=== PATIENT | female | born 1960 | race Caucasian/White ===

== ENCOUNTER 2016-04-18 13:24 | Inpatient (IN) ==
--- NOTE | 2016-04-18 13:31 | Emergency Department Note ---
Disposition Clinical Impression: Hypoxemia, Atypical chest pain Respiratory failure Qualifiers: Chronicity: acute Respiratory failure complication: hypoxia Qualified Code(s): J96.01 - Acute respiratory failure with hypoxia Disposition: Admitted As Inpatient Chest Pain HPI - General Stated Complaint: Chest Pain / MADELYN Time Seen by Provider: 04/18/16 13:26 Source: patient Mode of arrival: ambulatory Limitations: no limitations Vital Signs Reviewed: Yes Nursing Notes Reviewed: Yes - History of Present Illness HPI Narrative: She states she woke up about 10 AM today she was having some some chest discomfort and also shortness of breath. As the day progressed her symptoms became a little worse. She is not known smoker she has no history of COPD and does not take inhalers at home. She also states she is complaining of continued migraine Pt complaint: chest pain Onset (ago): hour(s) (3.5) Severity scale (1-10): 8 Improves with: rest Worsens with: exertion Associated symptoms: Denies: nausea, vomiting - Related Data Home Medications Medication Instructions Recorded Confirmed Paroxetine [Paxil] 60 mg PO HS 04/01/15 04/18/16 Buspirone HCl [Buspar] 10 mg PO BID 09/12/15 04/18/16 Diazepam [Valium] 10 mg PO TID 09/12/15 04/18/16 Gabapentin [Neurontin] 600 mg PO BID 09/12/15 04/18/16 Butalb/Acetaminophen/Caffeine 1 tab PO DAILY PRN 04/18/16 04/18/16 [Ffpewe-Fiwshxaj-Pfsx 50-325-40] Chlorpromazine HCl 300 mg PO HS 04/18/16 04/18/16 Cyclobenzaprine HCl 5 mg PO TID PRN 04/18/16 04/18/16 Trihexyphenidyl [Artane] 2 mg PO TID 04/18/16 04/18/16 Previous Rx's Medication Instructions Recorded PredniSONE 40 mg PO DAILY #10 tablet 10/12/15 Allergies Allergy/AdvReac Type Severity Reaction Status Date / Time metoclopramide [From Reglan] Allergy Mild Itching Verified 04/18/16 19:25 tramadol Allergy Mild Itching Verified 04/18/16 19:25 amitriptyline Allergy Itching Verified 04/18/16 19:25 Sulfa (Sulfonamide Allergy See Verified 04/18/16 19:25 Antibiotics) Comments sulfamethoxazole Allergy See Verified 04/18/16 19:25 [From Bactrim] Comments trimethoprim [From Bactrim] Allergy See Verified 04/18/16 19:25 Comments lorazepam [From Ativan] AdvReac Mild Anxiety Verified 04/18/16 19:25 benztropine [From Cogentin] AdvReac See Verified 04/18/16 19:25 Comments ciprofloxacin [From Cipro] AdvReac See Verified 04/18/16 19:25 Comments onabotulinumtoxinA AdvReac See Verified 04/18/16 19:25 [From Botox] Comments sumatriptan [From Imitrex] AdvReac Agitated Verified 04/18/16 19:25 topiramate [From Topamax] AdvReac See Verified 04/18/16 19:25 Comments All systems ED: reviewed and negative except as stated. 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, other - Social History Smoking Status: Current every day smoker Alcohol use: Reports: none Drug use: Reports: none Physical Exam - General Limitations: no limitations General appearance: alert, in no apparent distress - Head Head exam: atraumatic, normocephalic, normal inspection - Eye Eye exam: Present: normal appearance, PERRL, EOMI - Expanded Eye Exam Pupils: Left: reactive - ENT ENT exam: normal exam, normal oropharynx, mucous membranes moist - Expanded ENT Exam External ear exam: Present: normal external inspection Mouth exam: Present: normal external inspection Teeth exam: Present: normal inspection Throat exam: Present: normal inspection - Neck Neck exam: Present: normal inspection, full ROM, trachea midline - Chest Chest inspection: Present: normal inspection, symmetric chest wall rise - Respiratory Respiratory exam: Present: other (Mild end expiratory wheezes some minimal scattered crackles) - Cardiovascular Cardiovascular exam: Present: regular rate, normal rhythm, normal heart sounds - Abdominal Exam Abdominal exam: Present: soft, Non-Tender. Absent: tenderness, distention, guarding, rebound, rigidity - Extremities Exam Extremities exam: Present: normal inspection, full ROM. Absent: tenderness, pedal edema - Expanded Upper Extremity Exam Shoulder exam: Present: normal inspection, full ROM Arm exam: Present: normal inspection, full ROM Elbow exam: Present: normal inspection, full ROM Forearm/Wrist exam: Present: normal inspection, full ROM Hand exam: Present: normal inspection, full ROM Vascular exam: Normal: capillary refill, radial pulse - Expanded Lower Extremity Exam Hip/Pelvis exam: Present: normal inspection, full ROM Upper leg exam: Present: normal inspection, full ROM Knee exam: Present: normal inspection, full ROM Lower leg exam: Present: normal inspection, full ROM Ankle exam: Present: normal inspection, full ROM Foot/toe exam: Present: normal inspection, full ROM Neurovascular/Tendon exam: Absent: motor deficit, sensory deficit, tendon deficit - Back Exam Back exam: Present: normal inspection, full ROM. Absent: tenderness - Neurological Exam Neurological exam: Present: alert, oriented X3 - Expanded Neurological Exam Patient oriented to: Present: person, place, time Coma Scale Eye Opening: Spontaneous Coma Scale Motor Response: Obeys Commands Coma Scale Verbal Response: Oriented Coma Scale Total: 15 - Psychiatric Psychiatric exam: Present: normal affect, normal mood - Skin Skin exam: Present: warm, dry, intact, normal color Course Vital Signs Temperature 98.1 F 04/18/16 13:27 Pulse Rate 101 04/18/16 13:27 Respiratory Rate 16 04/18/16 13:27 Blood Pressure 125/60 04/18/16 13:27 O2 Sat by Pulse Oximetry 99 04/18/16 13:27 Temperature 98.1 F 04/18/16 13:27 Pulse Rate 106 04/18/16 18:55 Respiratory Rate 16 04/18/16 19:28 Blood Pressure 122/31 04/18/16 19:28 O2 Sat by Pulse Oximetry 96 04/18/16 18:55 Oxygen Delivery Oxygen Delivery Simple Mask Chest Pain - [facility] Narrative Medical decision making narrative: dr. liu to admit still uncertain of the etiology of her hypoxemia. - Differential Diagnosis Likely: pneumothorax, stable angina, unstable angina pectoris, atypical chest pain, st elevation myocardial infraction, costalchondritis, chest pain, biliary colic - Medical Records Medical records reviewed: Yes I reviewed the patient's medical records. - Lab Data Lab results reviewed: Yes I reviewed the patient's lab results. Result diagrams: 04/18/16 13:57 04/18/16 13:57 Lab Results 04/18/16 04/18/16 04/18/16 Range/Units 13:57 13:57 13:57 WBC 19.3 H (4.3-11.1) K/mcL RBC 3.85 (3.82-4.97) M/mcL Hgb 12.3 (11.5-15.4) g/dL Hct 36.6 (35.3-44.9) % MCV 95.1 (83.0-100.0) fL MCH 31.9 (28.0-33.3) pg MCHC 33.6 (31.6-35.5) g/dL RDW 13.5 (11.5-14.5) % Plt Count 239 (140-400) K/mcL MPV 9.6 (9.4-12.4) fL Immature Gran % 1.1 (0-4) % Seg Neutrophils % 91.4 % Lymphocytes % 4.2 % Monocytes % 2.8 % Eosinophils % 0.3 % Basophils % 0.2 % Neutrophils # 17.7 H (1.6-8.9) K/mcL Lymphocytes # 0.8 (0.6-4.6) K/mcL Monocytes # 0.6 (0.0-1.3) K/mcL Eosinophils # 0.1 (0.0-0.6) K/mcL Basophils # 0.0 (0.0-0.2) K/mcL PT 13.4 H (9.4-12.1) Seconds INR 1.2 APTT 56.1 H (26.0-36.0) Seconds D-Dimer 1376 H (0-500) ng/mLFEU ABG pH (7.32-7.45) pH Units ABG pCO2 (35-45) mmHg ABG pO2 (85-104) mmHg ABG HCO3 (21-27) mEQ/L ABG Total CO2 (20-26) mEq/L ABG O2 Saturation (95-98) % ABG Base Excess (-2.0 to 3.0) mEq/L Inspired O2 % Sodium 133 L (136-145) mEq/L Potassium 4.2 (3.5-4.5) mEq/L Chloride 101 (98-109) mEq/L Carbon Dioxide 21 (19-29) mEq/L BUN 19 (7-20) mg/dL Creatinine 1.03 (0.57-1.11) mg/dL Est GFR ( Amer) > 60 (> 60) Est GFR (Non-Af Amer) 55 L (> 60) BUN/Creatinine Ratio 18 (6-26) Glucose 114 H (70-99) mg/dL Calculated Osmolality 279 L (280-300) Calcium 9.5 (8.6-10.8) mg/dL Troponin I (0-0.03) ng/mL Urine Color (Yellow) Urine Clarity (Clear) Urine pH (5.0-8.0) pH Units Ur Specific Oral (1.010-1.025) Urine Protein (Neg-Trace) mg/dL Urine Glucose (UA) (Normal) mg/dL Urine Ketones (Negative) mg/dL Urine Blood (Negative) Urine Nitrite (Negative) Urine Bilirubin (Negative) Urine Urobilinogen (Normal) mg/dL Ur Leukocyte Esterase (Negative) Urine Microscopic RBC (0-3) per hpf Urine Microscopic WBC (0-3) per hpf Ur Squamous Epith Cells (None-Few) per lpf Ur Renal Epithelial Cell (None-Few) per hpf Urine Bacteria (None-Few) per hpf Hyaline Casts Ur Culture Indicated? (NO) Urine Opiates Screen (Rnuohp=058) ng/mL Ur Barbiturates Screen (Nptpvg=998) ng/mL Ur Phencyclidine Scrn (Cutoff=25) ng/mL Ur Amphetamines Screen (Uaqdrx=8571) ng/mL U Benzodiazepines Scrn (Vygqsa=672) ng/mL Urine Cocaine Screen (Cutoff= 300) ng/mL U Marijuana (THC) Screen (Cutoff = 50) ng/mL 04/18/16 04/18/16 04/18/16 Range/Units 13:57 15:40 15:40 WBC (4.3-11.1) K/mcL RBC (3.82-4.97) M/mcL Hgb (11.5-15.4) g/dL Hct (35.3-44.9) % MCV (83.0-100.0) fL MCH (28.0-33.3) pg MCHC (31.6-35.5) g/dL RDW (11.5-14.5) % Plt Count (140-400) K/mcL MPV (9.4-12.4) fL Immature Gran % (0-4) % Seg Neutrophils % % Lymphocytes % % Monocytes % % Eosinophils % % Basophils % % Neutrophils # (1.6-8.9) K/mcL Lymphocytes # (0.6-4.6) K/mcL Monocytes # (0.0-1.3) K/mcL Eosinophils # (0.0-0.6) K/mcL Basophils # (0.0-0.2) K/mcL PT (9.4-12.1) Seconds INR APTT (26.0-36.0) Seconds D-Dimer (0-500) ng/mLFEU ABG pH (7.32-7.45) pH Units ABG pCO2 (35-45) mmHg ABG pO2 (85-104) mmHg ABG HCO3 (21-27) mEQ/L ABG Total CO2 (20-26) mEq/L ABG O2 Saturation (95-98) % ABG Base Excess (-2.0 to 3.0) mEq/L Inspired O2 % Sodium (136-145) mEq/L Potassium (3.5-4.5) mEq/L Chloride (98-109) mEq/L Carbon Dioxide (19-29) mEq/L BUN (7-20) mg/dL Creatinine (0.57-1.11) mg/dL Est GFR ( Amer) (> 60) Est GFR (Non-Af Amer) (> 60) BUN/Creatinine Ratio (6-26) Glucose (70-99) mg/dL Calculated Osmolality (280-300) Calcium (8.6-10.8) mg/dL Troponin I 0.01 (0-0.03) ng/mL Urine Color Yellow (Yellow) Urine Clarity Clear (Clear) Urine pH 6.0 (5.0-8.0) pH Units Ur Specific Oral > 1.030 H (1.010-1.025) Urine Protein Trace (Neg-Trace) mg/dL Urine Glucose (UA) Normal (Normal) mg/dL Urine Ketones Negative (Negative) mg/dL Urine Blood Trace H (Negative) Urine Nitrite Negative (Negative) Urine Bilirubin Negative (Negative) Urine Urobilinogen Normal (Normal) mg/dL Ur Leukocyte Esterase Negative (Negative) Urine Microscopic RBC 0-3 (0-3) per hpf Urine Microscopic WBC 0-3 (0-3) per hpf Ur Squamous Epith Cells Few (None-Few) per lpf Ur Renal Epithelial Cell Few (None-Few) per hpf Urine Bacteria Few (None-Few) per hpf Hyaline Casts Test Not Performed Ur Culture Indicated? NO (NO) Urine Opiates Screen Negative (Crurwk=377) ng/mL Ur Barbiturates Screen Positive H (Zgqklf=169) ng/mL Ur Phencyclidine Scrn Negative (Cutoff=25) ng/mL Ur Amphetamines Screen Negative (Jiafnr=0115) ng/mL U Benzodiazepines Scrn Positive H (Oldjjh=030) ng/mL Urine Cocaine Screen Negative (Cutoff= 300) ng/mL U Marijuana (THC) Screen Negative (Cutoff = 50) ng/mL 04/18/16 Range/Units 17:20 WBC (4.3-11.1) K/mcL RBC (3.82-4.97) M/mcL Hgb (11.5-15.4) g/dL Hct (35.3-44.9) % MCV (83.0-100.0) fL MCH (28.0-33.3) pg MCHC (31.6-35.5) g/dL RDW (11.5-14.5) % Plt Count (140-400) K/mcL MPV (9.4-12.4) fL Immature Gran % (0-4) % Seg Neutrophils % % Lymphocytes % % Monocytes % % Eosinophils % % Basophils % % Neutrophils # (1.6-8.9) K/mcL Lymphocytes # (0.6-4.6) K/mcL Monocytes # (0.0-1.3) K/mcL Eosinophils # (0.0-0.6) K/mcL Basophils # (0.0-0.2) K/mcL PT (9.4-12.1) Seconds INR APTT (26.0-36.0) Seconds D-Dimer (0-500) ng/mLFEU ABG pH 7.37 (7.32-7.45) pH Units ABG pCO2 40 (35-45) mmHg ABG pO2 77 L (85-104) mmHg ABG HCO3 23.1 (21-27) mEQ/L ABG Total CO2 24.3 (20-26) mEq/L ABG O2 Saturation 95 (95-98) % ABG Base Excess -2.0 (-2.0 to 3.0) mEq/L Inspired O2 44 % Sodium (136-145) mEq/L Potassium (3.5-4.5) mEq/L Chloride (98-109) mEq/L Carbon Dioxide (19-29) mEq/L BUN (7-20) mg/dL Creatinine (0.57-1.11) mg/dL Est GFR ( Amer) (> 60) Est GFR (Non-Af Amer) (> 60) BUN/Creatinine Ratio (6-26) Glucose (70-99) mg/dL Calculated Osmolality (280-300) Calcium (8.6-10.8) mg/dL Troponin I (0-0.03) ng/mL Urine Color (Yellow) Urine Clarity (Clear) Urine pH (5.0-8.0) pH Units Ur Specific Oral (1.010-1.025) Urine Protein (Neg-Trace) mg/dL Urine Glucose (UA) (Normal) mg/dL Urine Ketones (Negative) mg/dL Urine Blood (Negative) Urine Nitrite (Negative) Urine Bilirubin (Negative) Urine Urobilinogen (Normal) mg/dL Ur Leukocyte Esterase (Negative) Urine Microscopic RBC (0-3) per hpf Urine Microscopic WBC (0-3) per hpf Ur Squamous Epith Cells (None-Few) per lpf Ur Renal Epithelial Cell (None-Few) per hpf Urine Bacteria (None-Few) per hpf Hyaline Casts Ur Culture Indicated? (NO) Urine Opiates Screen (Crepel=341) ng/mL Ur Barbiturates Screen (Efjjff=408) ng/mL Ur Phencyclidine Scrn (Cutoff=25) ng/mL Ur Amphetamines Screen (Ktvkru=7524) ng/mL U Benzodiazepines Scrn (Znxtin=230) ng/mL Urine Cocaine Screen (Cutoff= 300) ng/mL U Marijuana (THC) Screen (Cutoff = 50) ng/mL - Radiology Data Radiology results reviewed: Yes I reviewed the patient's radiology results. Critical Care Time Critical Care Time: Yes Total Critical Care Time: 40 Attestation: Critical care performed: Time is exclusive of separately billable procedures. Time includes: direct patient care, patient reassessment, coordination of patient care, interpretation of data (laboratory data, radiology data, and respiratory data), review of patient's medical records, medical consultation and documentation of patient care. Procedures included in critical care time: Procedures excluded from critical care time:
[2016-04-18 14:06] LABS: Basophils % 0.2 %; Eosinophils # 0.1 K/mcL (0.0-0.6); Eosinophils % 0.3 %; Hematocrit 36.6 % (35.3-44.9); Hemoglobin 12.3 g/dL (11.5-15.4); Immature Granulocytes % 1.1 % (0-4); Lymphocytes # 0.8 K/mcL (0.6-4.6); Lymphocytes % 4.2 %; Mean Corpuscular HGB Conc 33.6 g/dL (31.6-35.5); Mean Corpuscular Hemoglobin 31.9 pg (28.0-33.3); Mean Corpuscular Volume 95.1 fL (83.0-100.0); Mean Platelet Volume 9.6 fL (9.4-12.4); Monocytes # 0.6 K/mcL (0.0-1.3); Monocytes % 2.8 %; Neutrophils # 17.7 K/mcL (1.6-8.9); Platelet Count 239 K/mcL (140-400); Red Blood Count 3.85 M/mcL (3.82-4.97); Red Cell Distribution Width 13.5 % (11.5-14.5); Segmented Neutrophils % 91.4 %
[2016-04-18 14:18] LABS: BUN/Creatinine Ratio 18 (6-26); Blood Urea Nitrogen 19 mg/dL (7-20); Calcium 9.5 mg/dL (8.6-10.8); Carbon Dioxide 21 mEq/L (19-29); Chloride 101 mEq/L (98-109); Glucose 114 mg/dL (70-99); Osmolality,Calculated 279 (280-300); Potassium 4.2 mEq/L (3.5-4.5); Sodium 133 mEq/L (136-145); eGFR For African Americans > 60 (> 60); eGFR For Non-African Americans 55 (> 60)
[2016-04-18 14:29] LABS: INR 1.2; Prothrombin Time 13.4 Seconds (9.4-12.1)
[2016-04-18 14:32] LABS: Activated Partial Thrombo Time 56.1 Seconds (26.0-36.0)
[2016-04-18] MEDS ORDERED: Ipratropium/Albuterol Neb 3 ML IH ONE (15:52)
[2016-04-18 16:10] LABS: Bilirubin,Urine Negative (Negative); Blood,Urine Trace (Negative); Clarity,Urine Clear (Clear); Color,Urine Yellow (Yellow); Glucose,Urine (UA) Normal (Normal); Ketones,Urine Negative (Negative); Leukocyte Esterase,Urine Negative (Negative); Nitrite,Urine Negative (Negative); Protein,Urine Trace mg/dL (Neg-Trace); Specific Gravity,Urine > 1.030 (1.010-1.025); Urobilinogen,Urine Normal (Normal)
[2016-04-18 16:22] LABS: Amphetamine Screen,Urine Negative ng/mL (Cutoff=1000); Benzodiazepines Screen,Urine Positive ng/mL (Cutoff=200); Cannabinoid Screen,Urine Negative ng/mL (Cutoff = 50); Cocaine Screen,Urine Negative ng/mL (Cutoff= 300); Opiate Screen,Urine Negative ng/mL (Cutoff=300); Phencyclidine Screen,Urine Negative ng/mL (Cutoff=25)
[2016-04-18 16:29] LABS: Bacteria,Urine Few per hpf (None-Few); RBC,Urine 0-3 per hpf (0-3); Squamous Epithelial Cell,Urine Few per lpf (None-Few); WBC,Urine 0-3 per hpf (0-3)
[2016-04-18 16:32] LABS: Renal Epithelial Cells,Urine Few per hpf (None-Few)
[2016-04-18 16:37] LABS: Barbiturate Screen,Urine Positive ng/mL (Cutoff=200)
[2016-04-18 17:41] LABS: ABG HCO3 23.1 mEQ/L (21-27); ABG Oxygen Saturation 95 % (95-98); ABG PCO2 40 mmHg (35-45); ABG PH 7.37 pH Units (7.32-7.45); ABG PO2 77 mmHg (85-104); ABG TCO2 24.3 mEq/L (20-26)
[2016-04-18 17:43] LABS: Blood Gas FiO2 44 %
[2016-04-18] MEDS ORDERED: Aspirin 81 MG TAB.CHEW PO ONE (18:33)
[2016-04-18] MEDS ORDERED: *HR* Promethazine 25 MG/ML VIAL IVP ONE (18:51)
[2016-04-18] MEDS ORDERED: Levofloxacin 750 MG/150 ML 750 MG/150 ML BAG IVPB ONE (19:29)
[2016-04-18] MEDS ORDERED: *HR* Enoxaparin 40 MG/0.4 ML SYRINGE SQ ONE (20:13)
[2016-04-18] MEDS ORDERED: Benzonatate 100 MG CAPSULE PO PRN (20:13)
[2016-04-18] MEDS ORDERED: Naloxone 0.4 MG/ML INJ IVP PRN (20:13)
[2016-04-18] MEDS ORDERED: *HR* Promethazine 25 MG/ML VIAL IVP PRN (20:13)
[2016-04-18] MEDS ORDERED: Acetaminophen 325 MG TABLET PO PRN (20:13)
[2016-04-18] MEDS ORDERED: Mag Hydrox/Al Hydrox/Simeth 30 ML UDC PO PRN (20:13)
[2016-04-18] MEDS ORDERED: Albuterol 2.5 MG/3 ML NEBULIZER IH PRN (20:13)
[2016-04-18] MEDS ORDERED: *HR* OxyCODONE Immed Rel 5 MG TABLET PO PRN (20:13)
[2016-04-18] MEDS ORDERED: *HR* OxyCODONE/APAP 5/325 TABLET PO ONE (20:19)
[2016-04-18] MEDS: 0.9 % Sodium Chloride 1,000 ML IVC SCH (21:51)
[2016-04-18] MEDS: Famotidine 20 MG TABLET PO SCH (21:52)
[2016-04-18] MEDS: Nicotine 21 MG PATCH.TD24 TD SCH (21:52)
--- NOTE | 2016-04-18 21:54 | Internal Med History&Physical ---
<Goldy Shah - Last Filed: 04/18/16 23:40> Date of Encounter: 04/18/16 Time of Encounter: 21:00 Assessment and Plan (1) Acute respiratory failure Current visit: No Status: Acute Acute hypoxic respiratory failure. Patient's current O2 saturation stable at 95% on 9 L high flow during examination. ABG showed pO2 at 77. Troponin negative x 1. Possible infectious process on chest CTA. Suggestive of atypical pneumonia. 3 episodes of pneumonia in the past year. Vomiting for past 3 days gives concern for possible aspiration pneumonitis. Patient noted to have allergy to cipro, causing desquamation of hands. Patient received levaquin in the ED. Will discontinue and start rocephin and azithromycin. Qualifiers: Respiratory failure complication: hypoxia Qualified Code(s): J96.01 - Acute respiratory failure with hypoxia (2) Pneumonia Current visit: No Status: Acute Likely atypical community acquired pneumonia. Concern for aspiration with recent vomiting. See above plan. Qualifiers: Pneumonia type: due to unspecified organism Laterality: bilateral Lung location: unspecified part of lung Qualified Code(s): J18.9 - Pneumonia, unspecified organism (3) SIRS (systemic inflammatory response syndrome) Current visit: Yes Status: Acute Likely sepsis secondary to pneumonia in the setting of acute respiratory failure. Tachycardiac (117), tachypneic (26), leukocytosis (19.3), CRP (273), pO2 (77). See above plan. In addition, concern for coagulopathy with chronic elevation of PT/PTT. Ordered hypercoagulation studies. (4) Vomiting Current visit: Yes Status: Acute Likely acute viral process. Increased reflux. Possible gastritis vs acute gastroenteritis. Start PPI Monitor H/H. Continue IVFs Phenergan prn Qualifiers: Vomiting type: unspecified Vomiting Intractability: non-intractable Nausea presence: with nausea Qualified Code(s): R11.2 - Nausea with vomiting, unspecified (5) Bipolar disorder Current visit: No Status: Chronic Continue home medication. Qualifiers: Active/Remission status: currently active Current bipolar episode type: mixed Current episode severity: severe Psychotic features: without psychotic features Qualified Code(s): F31.63 - Bipolar disorder, current episode mixed, severe, without psychotic features (6) Tobacco dependence Current visit: Yes Status: Acute Currently smokes 1/2 ppd. Patient states she plans to quit after the continued respiratory issues this year. Internal Medicine - H&P: HPI Chief complaint: shortness of breath Admitted From: Emergency Dept Plans for Post Hospital Care: Home History of present illness: Ms. Montoya is a 55 year old female presented to the ED with worsening shortness of breath beginning today. Patient also notes vomiting for the past three days and a migraine that began after the vomiting. Patient seen in the ED yesterday for migraine, discharged. Patient states migraine is a pulsating sharp pain behind her left eye radiating into her jaw currently an 8/10. Chest pain improving, was 8/10 on admission, described at a throbbing pressure in the center of her chest, worse with exertion. PMHx of hypotension and bipolar. Admits to cough today with clear sputum production, dizziness, and numbness/ tingling with walking, states she feels like she is "about to pass out". Patient states she has been unable to keep fluids or food down for the past 2 days. Thinking back patient recalls increased heartburn recently, unknown timeline. Patient denies any sick contacts. Denies fevers, diarrhea, constipation, dysuria, hematuria, melena. No history of DVT or PE, denies history of any bleeding disorders. Patient does note 3 diagnoses of pneumonia in the past year 09/12/15, 10/03/15, and 02/17/16. Currently smokes 1/2 ppd. CXR done in the ED showed mild congestion, CTA showed diffuse bilateral ground glass airspace, possible infectious process less likely edema, vs interstitial lung disease. Patient currently on 9 LPM of oxygen supplementation to maintain O2 sat >94%. Past Med Surg Social Fam HX - Past Medical History Medical history: migraine, other (hypotension) Psychiatric history: anxiety, bipolar, depression - Past Surgical History Surgical History: cholecystectomy, herniorrhaphy, hysterectomy - Social History Smoking Status: Current every day smoker Smokeless Tobacco Status: No Alcohol use: none Drug use: none - Family History Father Living Status: Still Living Hx Family Cardiac Disorders: Yes Mother Family Member Ethnicity: Non- Living Status: Still Living Hx Family Cardiac Disorders: No Hx Family Respiratory Disorders: Yes (short of breath) Hx Family Cancer: No Hx Family GI Disorders: No Hx Family Endocrine Disorder: No Hx Family Neuromuscular Disorders: No Hx Family Neurologic Disorders: No Hx Family HEENT Disorders: No Hx Family Autoimmune Disorders: Yes (hyperthyroid) Grandfather Living Status: Hx Family Cardiac Disorders: Yes Internal Medicine - H&P: Meds Paroxetine [Paxil] 60 mg PO HS 04/01/15 [History] Buspirone HCl [Buspar] 10 mg PO BID 09/12/15 [History] Diazepam [Valium] 10 mg PO TID 09/12/15 [History] Gabapentin [Neurontin] 600 mg PO BID 09/12/15 [History] PredniSONE 40 mg PO DAILY #10 tablet 10/12/15 [Rx] Butalb/Acetaminophen/Caffeine [Chwkse-Uitkejqj-Meyg 50-325-40] 1 tab PO DAILY PRN 04/18/16 [History] Chlorpromazine HCl 300 mg PO HS 04/18/16 [History] Cyclobenzaprine HCl 5 mg PO TID PRN 04/18/16 [History] Trihexyphenidyl [Artane] 2 mg PO TID 04/18/16 [History] Allergies metoclopramide [From Reglan] Allergy (Mild, Verified 04/18/16 19:25) Itching tramadol Allergy (Mild, Verified 04/18/16 19:25) Itching amitriptyline Allergy (Verified 04/18/16 19:25) Itching Sulfa (Sulfonamide Antibiotics) Allergy (Verified 04/18/16 19:25) See Comments sulfamethoxazole [From Bactrim] Allergy (Verified 04/18/16 19:25) See Comments trimethoprim [From Bactrim] Allergy (Verified 04/18/16 19:25) See Comments blisters on hands and feet lorazepam [From Ativan] Adverse Reaction (Mild, Verified 04/18/16 19:25) Anxiety benztropine [From Cogentin] Adverse Reaction (Verified 04/18/16 19:25) See Comments patient states it causes sores on tongue ciprofloxacin [From Cipro] Adverse Reaction (Verified 04/18/16 19:25) See Comments BLISTERS TO HANDS AND FEET onabotulinumtoxinA [From Botox] Adverse Reaction (Verified 04/18/16 19:25) See Comments patient states it causes neck pain sumatriptan [From Imitrex] Adverse Reaction (Verified 04/18/16 19:25) Agitated topiramate [From Topamax] Adverse Reaction (Verified 04/18/16 19:25) See Comments patient states it makes her hyper All Systems PM: A 10-system review of systems was performed and is negative for pertinent findings except as documented above in the HPI. - Constitutional Constitutional: as per HPI, excessive sweating - EENT Nose, mouth and throat: no dysphagia, no neck pain, no throat swelling - Cardiovascular Cardiovascular ROS IM: as per HPI, chest pain, diaphoresis, dyspnea, dyspnea on exertion, lightheadedness, no edema - Respiratory Respiratory: as per HPI, cough, dyspnea on exertion, no excessive phlegm production, no change in phlegm color - Gastrointestinal Gastrointestinal: as per HPI, abdominal pain, heartburn, nausea, vomiting, no constipation, no diarrhea, no dysphagia, no hematemesis, no melena - Genitourinary Genitourinary: no dysuria - Musculoskeletal Musculoskeletal ROS IM: numbness, tingling - Integumentary Integumentary IM: no rash - Neurological Neurological ROS: dizziness, headache(s), numbness, tingling - Hematologic/Lymphatic Hematologic/Lymphatic: no easy bleeding, no easy bruising - Constitutional Vitals: Temp Pulse Resp BP Pulse Ox 98.1 F 101 20 110/48 93 L 04/18/16 20:54 04/18/16 20:54 04/18/16 20:54 04/18/16 20:54 04/18/16 20:54 General appearance: Present: cooperative, mild distress, A&O X 3, pleasant, obese, answers questions appropriately - Head Head exam: Present: atraumatic, normocephalic - Eye Eye exam: Present: EOMI, PERRL, conjuntiva pink, sclera anicteric Pupils: Present: PERRL - Neck Neck exam general surgery: Present: full ROM, supple, trachea midline - Respiratory Respiratory exam: Present: accessory muscle use, wheezes (high pitch wheeze vs stridor, heard through on inspiration. Worse on L>R.). Absent: rales, rhonchi - Cardiovascular Cardiovascular exam: Present: RRR, +S1, +S2. Absent: diastolic murmur, gallop, rubs, systolic murmur - GI/Abdominal GI/Abdominal exam: Present: normal bowel sounds, soft, no peritoneal signs. Absent: distended, tenderness - Extremities Exam Extremities exam: Present: warm, radial pulses palpable and symetrical (1+ b/l) . Absent: calf tenderness, cyanotic, pedal edema - Neurological Exam Neurological exam: Present: alert, oriented X3, no focal deficits. Absent: facial droop, speech deficit - Skin Skin exam: Present: dry, intact Internal Med - H&P Results - Labs CBC & Chem 7: 04/18/16 13:57 04/18/16 13:57 <Thierry Solomon - Last Filed: 04/19/16 02:28> Date of Encounter: 04/18/16 Assessment and Plan (1) Acute chest wall pain Current visit: Yes Status: Acute . (2) Costochondritis, acute Current visit: Yes Status: Acute . (3) Acute and chronic respiratory failure with hypoxia Current visit: Yes Status: Acute . (4) Atypical pneumonia Current visit: Yes Status: Acute . (5) Interstitial pulmonary disease, unspecified Current visit: Yes Status: Chronic . (6) Coagulopathy Current visit: Yes Status: Acute . (7) Opiate dependence Current visit: Yes Status: Chronic . Qualifiers: Substance use status: with unspecified opioid-induced disorder Qualified Code(s): F11.29 - Opioid dependence with unspecified opioid-induced disorder (8) Multiple drug allergies Current visit: Yes Status: Chronic . (9) Chronic pain associated with significant psychosocial dysfunction Current visit: Yes Status: Chronic . (10) Osteoarthritis involving multiple joints on both sides of body Current visit: Yes Status: Chronic . (11) Osteopenia Current visit: Yes Status: Chronic . (12) Chronic mixed headache syndrome Current visit: Yes Status: Chronic . (13) Chronic pancreatitis Current visit: Yes Status: Chronic . Qualifiers: Pancreatitis type: unspecified pancreatitis type Qualified Code(s): K86.1 - Other chronic pancreatitis (14) Obesity (BMI 30-39.9) Current visit: Yes Status: Chronic . (15) Chest pain, rule out acute myocardial infarction Current visit: Yes Status: Acute . (16) Chest pain with low risk of acute coronary syndrome Current visit: Yes Status: Acute . (17) Hyponatremia with decreased serum osmolality Current visit: Yes Status: Acute . (18) Neutrophilic leukocytosis Current visit: Yes Status: Acute . (19) Dehydration, mild Current visit: Yes Status: Acute . (20) On psychotropic medication Current visit: Yes Status: Chronic . (21) Gastroenteritis, acute Current visit: Yes Status: Acute . (22) Atypical chest pain Current visit: Yes Status: Acute . (23) SIRS (systemic inflammatory response syndrome) Current visit: Yes Status: Acute (24) Acute exacerbation of chronic obstructive airways disease Current visit: Yes Status: Acute . (25) Debility, unspecified Current visit: Yes Status: Chronic . (26) At risk for polypharmacy Current visit: Yes Status: Chronic . (27) Bipolar disorder Current visit: Yes Status: Chronic Qualifiers: Active/Remission status: currently active Current bipolar episode type: mixed Current episode severity: severe Psychotic features: without psychotic features Qualified Code(s): F31.63 - Bipolar disorder, current episode mixed, severe, without psychotic features (28) Depression Current visit: Yes Status: Chronic . Qualifiers: Depression Type: unspecified Qualified Code(s): F32.9 - Major depressive disorder, single episode, unspecified (29) Falls Current visit: Yes Status: Chronic . Qualifiers: Encounter type: sequela Qualified Code(s): W19.XXXS - Unspecified fall, sequela (30) Tobacco use disorder Current visit: Yes Status: Chronic . (31) Chronic fatigue and malaise Current visit: Yes Status: Chronic . Internal Medicine - H&P: HPI History of present illness: Ms. Montoya is a 55 year old female The patient was visited and interviewed and examined. I examined this patient and my medical decision-making was reviewed with the Resident Physician. I agree with the documented findings, disposition and treatment plan as described except to the extent set forth below. Cumulative laboratory and radiographic data base were reviewed and considered and discussed. Pertinent ancillary medical records including ECW and PCI documentation, when available, was reviewed and considered. Given the patient's presenting concerns, past medical history, clinical findings and symptoms, she is admitted at this time to undergo further evaluation and disposition. Orders were written as per the computerized physician order detailer system.......................................................................... ................. All Systems PM: A 10-system review of systems was performed and is negative for pertinent findings except as documented above in the HPI. - Constitutional Vitals: Temp Pulse Resp BP Pulse Ox 97.5 F L 65 20 80/54 93 L 04/18/16 23:59 04/18/16 23:59 04/18/16 23:59 04/18/16 23:59 04/18/16 23:59 Internal Med - H&P Results - Labs CBC & Chem 7: 04/18/16 13:57 04/18/16 13:57 Labs: Cardiac Enzymes 04/18/16 Range/Units 21:47 Troponin I 0.01 (0-0.03) ng/mL - Impressions Vital Signs Temp Pulse Resp BP Pulse Ox 04/18/16 23:59 97.5 F L 65 20 80/54 93 L 04/18/16 22:30 96 04/18/16 22:16 22 76 L 04/18/16 20:54 98.1 F 101 20 110/48 93 L 04/18/16 20:23 106 20 101/84 94 L 04/18/16 19:28 16 122/31 04/18/16 18:55 106 16 122/31 96 04/18/16 18:06 107 16 138/50 95 04/18/16 17:16 111 16 107/26 93 L 04/18/16 16:10 20 89 L 04/18/16 15:00 113 24 128/74 93 L 04/18/16 13:42 95 04/18/16 13:36 117 26 129/70 77 L 04/18/16 13:31 77 L 04/18/16 13:27 98.1 F 101 16 125/60 99 Intake and Output 04/18/16 04/18/16 04/19/16 15:59 23:59 07:59 Intake Total 620 / 620 110 / 110 Output Total 150 / 150 Balance 470 / 470 110 / 110 Intake: IV Fluids 250 / 250 110 / 110 Calcium Gluconate 1,000 110 / 110 MG In Dextrose 5% 100 ML @ 220 mls/hr IVPB ONCE ONE Rx#:[id number] Rocephin 1,000 MG In 100 / 100 Dextrose 5% (Minibag+) 100 ML 100 ML @ 200 mls/ hr IVPB BID [place] Rx#: [id number] Levaquin 750mg/150 mL 750 150 / 150 mg In 150 ml @ 100 mls/ hr IVPB ONCE ONE Rx#: [id number] Oral 370 / 370 Output: Urine 150 / 150 Other: Weight 72.575 kg 165.8 kg Short CBC 04/18/16 Range/Units 13:57 WBC 19.3 H (4.3-11.1) K/mcL Hgb 12.3 (11.5-15.4) g/dL Hct 36.6 (35.3-44.9) % Plt Count 239 (140-400) K/mcL Neutrophils # 17.7 H (1.6-8.9) K/mcL BMP 04/18/16 Range/Units 13:57 Sodium 133 L (136-145) mEq/L Potassium 4.2 (3.5-4.5) mEq/L Chloride 101 (98-109) mEq/L Carbon Dioxide 21 (19-29) mEq/L BUN 19 (7-20) mg/dL Creatinine 1.03 (0.57-1.11) mg/dL Glucose 114 H (70-99) mg/dL Calcium 9.5 (8.6-10.8) mg/dL Cardiac Enzymes 04/18/16 04/18/16 04/18/16 Range/Units 21:47 19:04 13:57 Troponin I 0.01 0.00 0.01 (0-0.03) ng/mL Urine 04/18/16 Range/Units 15:40 Urine Color Yellow (Yellow) Urine Clarity Clear (Clear) Urine pH 6.0 (5.0-8.0) pH Units Ur Specific [place] > 1.030 H (1.010-1.025) Urine Protein Trace (Neg-Trace) mg/dL Urine Glucose (UA) Normal (Normal) mg/dL 04/18/16 17:20 ABG pH 7.37 ABG pCO2 40 ABG pO2 77 L ABG HCO3 23.1 ABG Total CO2 24.3 ABG O2 Saturation 95 ABG Base Excess -2.0 Abnormal lab results WBC 19.3 K/mcL (4.3-11.1) H 04/18/16 13:57 Neutrophils # 17.7 K/mcL (1.6-8.9) H 04/18/16 13:57 ESR 47 mm/hr (0-15) H 04/18/16 21:47 PT 13.4 Seconds (9.4-12.1) H 04/18/16 13:57 APTT 56.1 Seconds (26.0-36.0) H 04/18/16 13:57 D-Dimer 1376 ng/mLFEU (0-500) H 04/18/16 13:57 ABG pO2 77 mmHg (85-104) L 04/18/16 17:20 Sodium 133 mEq/L (136-145) L 04/18/16 13:57 Est GFR (Non-Af Amer) 55 (> 60) L 04/18/16 13:57 Glucose 114 mg/dL (70-99) H 04/18/16 13:57 POC Glucose 139 (58-89) H 04/18/16 21:41 Calculated Osmolality 279 (280-300) L 04/18/16 13:57 Ionized Calcium 1.04 mmol/L (1.15-1.35) L 04/18/16 21:47 C-Reactive Protein 273 mg/L (Less than 5) H 04/18/16 21:47 Ur Specific [place] > 1.030 (1.010-1.025) H 04/18/16 15:40 Urine Blood Trace (Negative) H 04/18/16 15:40 Ur Barbiturates Screen Positive ng/mL (Xnhhiy=410) H 04/18/16 15:40 U Benzodiazepines Scrn Positive ng/mL (Tvorwv=013) H 04/18/16 15:40 Chest X-Ray 04/18/16 13:40 IMPRESSION: Mild congestion D/ / Aram Fung MD / Aram Fung MD Interpreting Provider: Aram Fung MD Chest CTA 04/18/16 14:33 IMPRESSION: No evidence of pulmonary embolism. Diffuse bilateral ground-glass airspace disease which is nonspecific. These changes may represent infectious process and less likely pulmonary edema. These changes were present on prior examination of 09/12/2015 and therefore raises the possibility of interstitial lung disease. D/ / 04/18/2016 15:26:02 Donovan Warner MD / [email or web address] Interpreting Provider: Donovan Warner MD - Attending Attestation My signature below is to certify that this patient is under my care and that I, or the Resident Physician working with me, has had a [id number] encounter with this patient. Plan of care has been reviewed and discussed in detail with the patient. Questions addressed to her satisfaction and reassurance. Advanced care directive discussion briefly addressed. Patient does not declare any restrictions at this time. Outpatient medication schedules will be reviewed, confirmed and facilitated as appropriate. Reconciliation of home treatments, including adjustments, substitutions and reintroduction into the treatment regimen we will address necessary maintenance therapies for chronic pre-existing medical conditions. Smoking cessation counseling briefly addressed. The patient accepts nicotine substitute with this admission. Hospital course will be dependent upon clinical findings, treatment response and potential consultative interventions. The patient is at risk for further clinical decline immobility given this presenting chief complaint, long-standing frailty/ disability and associated comorbidities. Condition is serious but stable. Prognosis is cautiously optimistic. CODE STATUS is full.
[2016-04-18] MEDS: Ipratropium/Albuterol Neb 3 ML IH SCH (22:16)
[2016-04-18 22:23] LABS: Ionized Calcium 1.04 mmol/L (1.15-1.35)
[2016-04-18 22:36] LABS: Magnesium 1.7 mg/dL (1.6-2.6)
[2016-04-19] MEDS ORDERED: Calcium Gluconate 1,000 MG in D5% in Water 100 ML IVPB ONE (00:13)
[2016-04-19] MEDS ORDERED: *HR* HYDROmorphone (PF) 1 MG/ML SYRINGE IVP PRN (01:57)
[2016-04-19] MEDS ORDERED: *HR* OxyCODONE Immed Rel 5 MG TABLET PO PRN (02:32)
[2016-04-19] MEDS: Ipratropium/Albuterol Neb 3 ML IH SCH ×4 (04:56→23:04)
[2016-04-19] MEDS: *HR* Enoxaparin 40 MG/0.4 ML SYRINGE SQ SCH (05:25)
[2016-04-19 06:22] LABS: VBG HCO3 24.1 mEq/L (21-27); VBG PH 7.41 pH Units (7.32-7.42)
[2016-04-19 06:24] LABS: Hematocrit 32.3 % (35.3-44.9); Hemoglobin 10.8 g/dL (11.5-15.4); Mean Corpuscular HGB Conc 33.4 g/dL (31.6-35.5); Mean Corpuscular Hemoglobin 31.6 pg (28.0-33.3); Mean Corpuscular Volume 94.4 fL (83.0-100.0); Mean Platelet Volume 9.8 fL (9.4-12.4); Platelet Count 205 K/mcL (140-400); Red Blood Count 3.42 M/mcL (3.82-4.97); Red Cell Distribution Width 13.5 % (11.5-14.5)
[2016-04-19 06:34] LABS: Alanine Aminotransferase 44 Units/L (0-55); Albumin 2.5 g/dL (3.5-5.0); Albumin/Globulin Ratio 0.7 (1.1-2.2); Alkaline Phosphatase 219 Units/L (38-126); Aspartate Amino Transferase 36 Units/L (5-34); BUN/Creatinine Ratio 14 (6-26); Bilirubin,Total 0.7 mg/dL (0.2-1.2); Blood Urea Nitrogen 10 mg/dL (7-20); Carbon Dioxide 21 mEq/L (19-29); Chloride 105 mEq/L (98-109); Globulin 3.6 g/dL (2.4-3.5); Glucose 128 mg/dL (70-99); Osmolality,Calculated 281 (280-300); Potassium 3.8 mEq/L (3.5-4.5); Sodium 135 mEq/L (136-145); Total Protein 6.1 g/dL (6.0-8.3); eGFR For African Americans > 60 (> 60); eGFR For Non-African Americans > 60 (> 60)
[2016-04-19 06:54] LABS: Hemoglobin A1C 4.8 %
[2016-04-19 06:58] LABS: Thyroid Stimulating Hormone 1.224 mcIU/mL (0.350-4.840)
[2016-04-19] MEDS: Azithromycin 500 MG in D5% in Water 250 ML IVPB SCH (07:50)
[2016-04-19] MEDS: Nicotine 21 MG PATCH.TD24 TD SCH (07:51)
[2016-04-19] MEDS: Famotidine 20 MG TABLET PO SCH ×2 (07:51→20:57)
[2016-04-19] MEDS ORDERED: predniSONE 20 MG TABLET PO SCH (09:00)
[2016-04-19] MEDS: *HR* Morphine 2 MG/ML SYRINGE IVP PRN ×4 (10:12→21:05)
[2016-04-19] MEDS: *HR* OxyCODONE Immed Rel 5 MG TABLET PO PRN ×2 (14:00→19:25)
[2016-04-19 15:03] LABS: INR 1.5; Prothrombin Time 16.7 Seconds (9.4-12.1)
--- NOTE | 2016-04-19 15:39 | Electrocardiograph Report ---
[facility] Test Date: 2016-04-18 Pat Name: Angela Montoya Department: 104 Room: 2A32 Gender: F Pmo Consultant: Silviano NICHOLASB: 1960 Requested By: Emerson Lopez Order Number: [id number] Reading MD: Gurinder Melo DO Measurements Intervals [place] Rate: 117 P: 56 NC: 124 QRS: 45 QRSD: 88 T: 71 QT: 340 QTc: 410 Interpretive Statements Sinus tachycardia Anterolateral ST-T changes possibly due to ischemia Possible left atrial enlargement Electronically Signed On 04-19-16 15:39:03 EST by Gurinder Melo DO
--- NOTE | 2016-04-19 17:09 | Internal Med Progress Note ---
Date of Encounter: 04/19/16 Time of Encounter: 11:30 - Assessment and plan (1) Acute respiratory failure with hypoxia Current Visit: No Status: Acute Assessment and plan: Continue O2 supplementation. Wean FiO2 as tolerated. Reviewed CT scan findings. Concern for underlying interstitial lung disease. Patient may need home oxygen. (2) Atypical pneumonia Current Visit: Yes Status: Acute Assessment and plan: Continue IV antibiotics. Cultures have been negative so far. (3) SIRS (systemic inflammatory response syndrome) Current Visit: Yes Status: Acute Assessment and plan: Improving. Leukocytosis is improving. No fever or chills or night sweats. Tachycardia is also resolving. (4) Tobacco dependence Current Visit: Yes Status: Acute Assessment and plan: Counseled about cessation. Patient seems motivated. (5) Vomiting Current Visit: Yes Status: Acute Assessment and plan: Improved. Continue supportive care. Qualifiers: Vomiting type: unspecified Vomiting Intractability: non-intractable Nausea presence: with nausea Qualified Code(s): R11.2 - Nausea with vomiting, unspecified (6) Bipolar disorder Current Visit: Yes Status: Chronic Qualifiers: Active/Remission status: currently active Current bipolar episode type: mixed Current episode severity: severe Psychotic features: without psychotic features Qualified Code(s): F31.63 - Bipolar disorder, current episode mixed, severe, without psychotic features (7) Chronic mixed headache syndrome Current Visit: Yes Status: Chronic Assessment and plan: Pain control. Resume Fioricet. (8) Acute exacerbation of chronic obstructive airways disease Current Visit: Yes Status: Acute Assessment and plan: Continue nebs, IV steroids. O2 supplementation. - Subjective Interval history: Patient complains of a migraine headache. Her breathing has improved compared to yesterday. She is still requiring significant amounts of supplemental oxygen. No chest pain reported. - Constitutional Vitals: Temp Pulse Resp BP Pulse Ox 98.0 F 95 18 101/63 90 L 04/19/16 16:38 04/19/16 16:38 04/19/16 16:38 04/19/16 16:38 04/19/16 16:38 General appearance: Present: cooperative, mild distress, A&O X 3, pleasant, obese, answers questions appropriately - Respiratory Respiratory exam: Present: CTAB, wheezes. Absent: accessory muscle use, rales, rhonchi Additional comments: Dry crackles at both bases - Cardiovascular Cardiovascular exam: Present: RRR, +S1, +S2. Absent: diastolic murmur, gallop, rubs, systolic murmur - GI/Abdominal GI/Abdominal exam: Present: normal bowel sounds, soft, no peritoneal signs. Absent: distended, tenderness - Extremities Exam Extremities exam: Present: warm, radial pulses palpable and symetrical. Absent : calf tenderness, cyanotic, pedal edema - Neurological Exam Neurological exam: Present: CN II-XII intact, oriented X3, no focal deficits, strengths equal and symetr throughout. Absent: facial droop, speech deficit - Skin Skin exam: Present: dry, intact Internal Medicine: Result - Labs CBC & Chem 7: 04/19/16 06:14 04/19/16 06:14 Labs: Short CBC 04/19/16 Range/Units 06:14 WBC 15.7 H (4.3-11.1) K/mcL Hgb 10.8 L D (11.5-15.4) g/dL Hct 32.3 L (35.3-44.9) % Plt Count 205 (140-400) K/mcL BMP 04/19/16 06:14 Sodium 135 L Potassium 3.8 Chloride 105 Carbon Dioxide 21 BUN 10 Creatinine 0.71 Glucose 128 H Calcium 9.0 Cardiac Enzymes 04/18/16 04/19/16 04/19/16 Range/Units 21:47 06:14 12:53 Troponin I 0.01 0.00 0.01 (0-0.03) ng/mL Liver Function 04/19/16 Range/Units 06:14 Total Bilirubin 0.7 (0.2-1.2) mg/dL AST 36 H (5-34) Units/L ALT 44 (0-55) Units/L Alkaline Phosphatase 219 H (38-126) Units/L Albumin 2.5 L (3.5-5.0) g/dL - ABG Interpretation ABG results: ABG ABG pH 7.37 pH Units (7.32-7.45) 04/18/16 17:20 ABG pCO2 40 mmHg (35-45) 04/18/16 17:20 ABG pO2 77 mmHg (85-104) L 04/18/16 17:20 ABG O2 Saturation 95 % (95-98) 04/18/16 17:20 PT/INR, D-dimer PT 16.7 Seconds (9.4-12.1) H 04/19/16 06:14 D-Dimer 1376 ng/mLFEU (0-500) H 04/18/16 13:57 - VTE Documentation of Mechanical Device: Intermittent pneumatic compression device Consult Discharge Plan - Plan - Attending Attestation This document has been at least partially created by [employer] recognition technology by Dr. Kerr. Errors in grammar, wording or other phrases may exist. If errors are found after the documentation is signed, they will be addressed individually in the addendum section of this document when appropriate. Medical Decision Making - MDM Narrative Medical decision making narrative: Moderate risk for complications - Medical Records Medical records reviewed: Yes I reviewed the patient's medical records. - Lab Data Lab results reviewed: Yes I reviewed the patient's lab results. Result diagrams: 04/19/16 06:14 04/19/16 06:14 Lab Results 04/18/16 04/18/16 04/18/16 Range/Units 21:41 21:47 21:47 WBC (4.3-11.1) K/mcL RBC (3.82-4.97) M/mcL Hgb (11.5-15.4) g/dL Hct (35.3-44.9) % MCV (83.0-100.0) fL MCH (28.0-33.3) pg MCHC (31.6-35.5) g/dL RDW (11.5-14.5) % Plt Count (140-400) K/mcL MPV (9.4-12.4) fL ESR 47 H (0-15) mm/hr PT (9.4-12.1) Seconds INR Fibrinogen (169-393) mg/dL Factor V Leiden Interp (Normal) VBG pH (7.32-7.42) pH Units VBG pCO2 (41-51) mmHg VBG pO2 (25-40) mmHg VBG HCO3 (21-27) mEq/L Sodium (136-145) mEq/L Potassium (3.5-4.5) mEq/L Chloride (98-109) mEq/L Carbon Dioxide (19-29) mEq/L BUN (7-20) mg/dL Creatinine (0.57-1.11) mg/dL Est GFR ( Amer) (> 60) Est GFR (Non-Af Amer) (> 60) BUN/Creatinine Ratio (6-26) Glucose (70-99) mg/dL POC Glucose 139 H (58-89) Est Mean Plasma Glucose mg/dl Hemoglobin A1c ( - 5.6) % Calculated Osmolality (280-300) Lactic Acid 1.0 (0.5-2.2) mmol/L Calcium (8.6-10.8) mg/dL Ionized Calcium (1.15-1.35) mmol/L Phosphorus (2.3-4.7) mg/dL Magnesium (1.6-2.6) mg/dL Total Bilirubin (0.2-1.2) mg/dL AST (5-34) Units/L ALT (0-55) Units/L Alkaline Phosphatase (38-126) Units/L Troponin I (0-0.03) ng/mL C-Reactive Protein (Less than 5) mg/L B-Natriuretic Peptide (0-100) pg/mL Serum Total Protein (6.0-8.3) g/dL Albumin (3.5-5.0) g/dL Globulin (2.4-3.5) g/dL Albumin/Globulin Ratio (1.1-2.2) TSH (0.350-4.840) mcIU/mL Rheumatoid Factor (0-29) IU/mL 04/18/16 04/18/16 04/19/16 Range/Units 21:47 21:47 06:14 WBC (4.3-11.1) K/mcL RBC (3.82-4.97) M/mcL Hgb (11.5-15.4) g/dL Hct (35.3-44.9) % MCV (83.0-100.0) fL MCH (28.0-33.3) pg MCHC (31.6-35.5) g/dL RDW (11.5-14.5) % Plt Count (140-400) K/mcL MPV (9.4-12.4) fL ESR (0-15) mm/hr PT (9.4-12.1) Seconds INR Fibrinogen (169-393) mg/dL Factor V Leiden Interp (Normal) VBG pH (7.32-7.42) pH Units VBG pCO2 (41-51) mmHg VBG pO2 (25-40) mmHg VBG HCO3 (21-27) mEq/L Sodium (136-145) mEq/L Potassium (3.5-4.5) mEq/L Chloride (98-109) mEq/L Carbon Dioxide (19-29) mEq/L BUN (7-20) mg/dL Creatinine (0.57-1.11) mg/dL Est GFR ( Amer) (> 60) Est GFR (Non-Af Amer) (> 60) BUN/Creatinine Ratio (6-26) Glucose (70-99) mg/dL POC Glucose (58-89) Est Mean Plasma Glucose mg/dl Hemoglobin A1c ( - 5.6) % Calculated Osmolality (280-300) Lactic Acid (0.5-2.2) mmol/L Calcium (8.6-10.8) mg/dL Ionized Calcium 1.04 L (1.15-1.35) mmol/L Phosphorus 3.0 (2.3-4.7) mg/dL Magnesium 1.7 (1.6-2.6) mg/dL Total Bilirubin (0.2-1.2) mg/dL AST (5-34) Units/L ALT (0-55) Units/L Alkaline Phosphatase (38-126) Units/L Troponin I 0.01 0.00 (0-0.03) ng/mL C-Reactive Protein 273 H (Less than 5) mg/L B-Natriuretic Peptide (0-100) pg/mL Serum Total Protein (6.0-8.3) g/dL Albumin (3.5-5.0) g/dL Globulin (2.4-3.5) g/dL Albumin/Globulin Ratio (1.1-2.2) TSH (0.350-4.840) mcIU/mL Rheumatoid Factor (0-29) IU/mL 04/19/16 04/19/16 04/19/16 Range/Units 06:14 06:14 06:14 WBC 15.7 H (4.3-11.1) K/mcL RBC 3.42 L (3.82-4.97) M/mcL Hgb 10.8 L D (11.5-15.4) g/dL Hct 32.3 L (35.3-44.9) % MCV 94.4 (83.0-100.0) fL MCH 31.6 (28.0-33.3) pg MCHC 33.4 (31.6-35.5) g/dL RDW 13.5 (11.5-14.5) % Plt Count 205 (140-400) K/mcL MPV 9.8 (9.4-12.4) fL ESR (0-15) mm/hr PT (9.4-12.1) Seconds INR Fibrinogen (169-393) mg/dL Factor V Leiden Interp (Normal) VBG pH (7.32-7.42) pH Units VBG pCO2 (41-51) mmHg VBG pO2 (25-40) mmHg VBG HCO3 (21-27) mEq/L Sodium 135 L (136-145) mEq/L Potassium 3.8 (3.5-4.5) mEq/L Chloride 105 (98-109) mEq/L Carbon Dioxide 21 (19-29) mEq/L BUN 10 (7-20) mg/dL Creatinine 0.71 (0.57-1.11) mg/dL Est GFR ( Amer) > 60 (> 60) Est GFR (Non-Af Amer) > 60 (> 60) BUN/Creatinine Ratio 14 (6-26) Glucose 128 H (70-99) mg/dL POC Glucose (58-89) Est Mean Plasma Glucose 91 mg/dl Hemoglobin A1c 4.8 ( - 5.6) % Calculated Osmolality 281 (280-300) Lactic Acid (0.5-2.2) mmol/L Calcium 9.0 (8.6-10.8) mg/dL Ionized Calcium (1.15-1.35) mmol/L Phosphorus (2.3-4.7) mg/dL Magnesium (1.6-2.6) mg/dL Total Bilirubin 0.7 (0.2-1.2) mg/dL AST 36 H (5-34) Units/L ALT 44 (0-55) Units/L Alkaline Phosphatase 219 H (38-126) Units/L Troponin I (0-0.03) ng/mL C-Reactive Protein (Less than 5) mg/L B-Natriuretic Peptide (0-100) pg/mL Serum Total Protein 6.1 (6.0-8.3) g/dL Albumin 2.5 L (3.5-5.0) g/dL Globulin 3.6 H (2.4-3.5) g/dL Albumin/Globulin Ratio 0.7 L (1.1-2.2) TSH 1.224 (0.350-4.840) mcIU/mL Rheumatoid Factor (0-29) IU/mL 04/19/16 04/19/16 04/19/16 Range/Units 06:14 06:14 06:14 WBC (4.3-11.1) K/mcL RBC (3.82-4.97) M/mcL Hgb (11.5-15.4) g/dL Hct (35.3-44.9) % MCV (83.0-100.0) fL MCH (28.0-33.3) pg MCHC (31.6-35.5) g/dL RDW (11.5-14.5) % Plt Count (140-400) K/mcL MPV (9.4-12.4) fL ESR (0-15) mm/hr PT (9.4-12.1) Seconds INR Fibrinogen 658 H (169-393) mg/dL Factor V Leiden Interp (Normal) VBG pH 7.41 (7.32-7.42) pH Units VBG pCO2 38 L (41-51) mmHg VBG pO2 125 H (25-40) mmHg VBG HCO3 24.1 (21-27) mEq/L Sodium (136-145) mEq/L Potassium (3.5-4.5) mEq/L Chloride (98-109) mEq/L Carbon Dioxide (19-29) mEq/L BUN (7-20) mg/dL Creatinine (0.57-1.11) mg/dL Est GFR ( Amer) (> 60) Est GFR (Non-Af Amer) (> 60) BUN/Creatinine Ratio (6-26) Glucose (70-99) mg/dL POC Glucose (58-89) Est Mean Plasma Glucose mg/dl Hemoglobin A1c ( - 5.6) % Calculated Osmolality (280-300) Lactic Acid (0.5-2.2) mmol/L Calcium (8.6-10.8) mg/dL Ionized Calcium (1.15-1.35) mmol/L Phosphorus (2.3-4.7) mg/dL Magnesium (1.6-2.6) mg/dL Total Bilirubin (0.2-1.2) mg/dL AST (5-34) Units/L ALT (0-55) Units/L Alkaline Phosphatase (38-126) Units/L Troponin I (0-0.03) ng/mL C-Reactive Protein (Less than 5) mg/L B-Natriuretic Peptide 16 (0-100) pg/mL Serum Total Protein (6.0-8.3) g/dL Albumin (3.5-5.0) g/dL Globulin (2.4-3.5) g/dL Albumin/Globulin Ratio (1.1-2.2) TSH (0.350-4.840) mcIU/mL Rheumatoid Factor (0-29) IU/mL 04/19/16 04/19/16 04/19/16 Range/Units 06:14 06:14 06:14 WBC (4.3-11.1) K/mcL RBC (3.82-4.97) M/mcL Hgb (11.5-15.4) g/dL Hct (35.3-44.9) % MCV (83.0-100.0) fL MCH (28.0-33.3) pg MCHC (31.6-35.5) g/dL RDW (11.5-14.5) % Plt Count (140-400) K/mcL MPV (9.4-12.4) fL ESR (0-15) mm/hr PT 16.7 H (9.4-12.1) Seconds INR 1.5 Fibrinogen (169-393) mg/dL Factor V Leiden Interp Normal (Normal) VBG pH (7.32-7.42) pH Units VBG pCO2 (41-51) mmHg VBG pO2 (25-40) mmHg VBG HCO3 (21-27) mEq/L Sodium (136-145) mEq/L Potassium (3.5-4.5) mEq/L Chloride (98-109) mEq/L Carbon Dioxide (19-29) mEq/L BUN (7-20) mg/dL Creatinine (0.57-1.11) mg/dL Est GFR ( Amer) (> 60) Est GFR (Non-Af Amer) (> 60) BUN/Creatinine Ratio (6-26) Glucose (70-99) mg/dL POC Glucose (58-89) Est Mean Plasma Glucose mg/dl Hemoglobin A1c ( - 5.6) % Calculated Osmolality (280-300) Lactic Acid (0.5-2.2) mmol/L Calcium (8.6-10.8) mg/dL Ionized Calcium (1.15-1.35) mmol/L Phosphorus (2.3-4.7) mg/dL Magnesium (1.6-2.6) mg/dL Total Bilirubin (0.2-1.2) mg/dL AST (5-34) Units/L ALT (0-55) Units/L Alkaline Phosphatase (38-126) Units/L Troponin I (0-0.03) ng/mL C-Reactive Protein (Less than 5) mg/L B-Natriuretic Peptide (0-100) pg/mL Serum Total Protein (6.0-8.3) g/dL Albumin (3.5-5.0) g/dL Globulin (2.4-3.5) g/dL Albumin/Globulin Ratio (1.1-2.2) TSH (0.350-4.840) mcIU/mL Rheumatoid Factor < 15 (0-29) IU/mL 04/19/16 04/19/16 04/19/16 Range/Units 08:07 11:50 12:53 WBC (4.3-11.1) K/mcL RBC (3.82-4.97) M/mcL Hgb (11.5-15.4) g/dL Hct (35.3-44.9) % MCV (83.0-100.0) fL MCH (28.0-33.3) pg MCHC (31.6-35.5) g/dL RDW (11.5-14.5) % Plt Count (140-400) K/mcL MPV (9.4-12.4) fL ESR (0-15) mm/hr PT (9.4-12.1) Seconds INR Fibrinogen (169-393) mg/dL Factor V Leiden Interp (Normal) VBG pH (7.32-7.42) pH Units VBG pCO2 (41-51) mmHg VBG pO2 (25-40) mmHg VBG HCO3 (21-27) mEq/L Sodium (136-145) mEq/L Potassium (3.5-4.5) mEq/L Chloride (98-109) mEq/L Carbon Dioxide (19-29) mEq/L BUN (7-20) mg/dL Creatinine (0.57-1.11) mg/dL Est GFR ( Amer) (> 60) Est GFR (Non-Af Amer) (> 60) BUN/Creatinine Ratio (6-26) Glucose (70-99) mg/dL POC Glucose 181 H 148 H (58-89) Est Mean Plasma Glucose mg/dl Hemoglobin A1c ( - 5.6) % Calculated Osmolality (280-300) Lactic Acid (0.5-2.2) mmol/L Calcium (8.6-10.8) mg/dL Ionized Calcium (1.15-1.35) mmol/L Phosphorus (2.3-4.7) mg/dL Magnesium (1.6-2.6) mg/dL Total Bilirubin (0.2-1.2) mg/dL AST (5-34) Units/L ALT (0-55) Units/L Alkaline Phosphatase (38-126) Units/L Troponin I 0.01 (0-0.03) ng/mL C-Reactive Protein (Less than 5) mg/L B-Natriuretic Peptide (0-100) pg/mL Serum Total Protein (6.0-8.3) g/dL Albumin (3.5-5.0) g/dL Globulin (2.4-3.5) g/dL Albumin/Globulin Ratio (1.1-2.2) TSH (0.350-4.840) mcIU/mL Rheumatoid Factor (0-29) IU/mL 04/19/16 Range/Units 16:39 WBC (4.3-11.1) K/mcL RBC (3.82-4.97) M/mcL Hgb (11.5-15.4) g/dL Hct (35.3-44.9) % MCV (83.0-100.0) fL MCH (28.0-33.3) pg MCHC (31.6-35.5) g/dL RDW (11.5-14.5) % Plt Count (140-400) K/mcL MPV (9.4-12.4) fL ESR (0-15) mm/hr PT (9.4-12.1) Seconds INR Fibrinogen (169-393) mg/dL Factor V Leiden Interp (Normal) VBG pH (7.32-7.42) pH Units VBG pCO2 (41-51) mmHg VBG pO2 (25-40) mmHg VBG HCO3 (21-27) mEq/L Sodium (136-145) mEq/L Potassium (3.5-4.5) mEq/L Chloride (98-109) mEq/L Carbon Dioxide (19-29) mEq/L BUN (7-20) mg/dL Creatinine (0.57-1.11) mg/dL Est GFR ( Amer) (> 60) Est GFR (Non-Af Amer) (> 60) BUN/Creatinine Ratio (6-26) Glucose (70-99) mg/dL POC Glucose 139 H (58-89) Est Mean Plasma Glucose mg/dl Hemoglobin A1c ( - 5.6) % Calculated Osmolality (280-300) Lactic Acid (0.5-2.2) mmol/L Calcium (8.6-10.8) mg/dL Ionized Calcium (1.15-1.35) mmol/L Phosphorus (2.3-4.7) mg/dL Magnesium (1.6-2.6) mg/dL Total Bilirubin (0.2-1.2) mg/dL AST (5-34) Units/L ALT (0-55) Units/L Alkaline Phosphatase (38-126) Units/L Troponin I (0-0.03) ng/mL C-Reactive Protein (Less than 5) mg/L B-Natriuretic Peptide (0-100) pg/mL Serum Total Protein (6.0-8.3) g/dL Albumin (3.5-5.0) g/dL Globulin (2.4-3.5) g/dL Albumin/Globulin Ratio (1.1-2.2) TSH (0.350-4.840) mcIU/mL Rheumatoid Factor (0-29) IU/mL
[2016-04-19] MEDS ORDERED: Acetaminophen/Butalbital/CaffeineTABLET PO PRN (17:14)
[2016-04-19] MEDS: 0.9 % Sodium Chloride 1,000 ML IVC SCH (18:12)
[2016-04-19] MEDS ORDERED: methylPREDNISolone 125 MG/2 ML VIAL IVP ONE (20:19)
[2016-04-19] MEDS: diazePAM 10 MG TABLET PO SCH (20:56)
[2016-04-19] MEDS: Gabapentin 300 MG CAPSULE PO SCH (20:56)
[2016-04-19] MEDS ORDERED: chlorproMAZINE 25 MG TABLET PO SCH (21:00)
[2016-04-20 04:15] LABS: Basophils % 0.1 %; Hematocrit 32.4 % (35.3-44.9); Hemoglobin 10.5 g/dL (11.5-15.4); Immature Granulocytes % 0.8 % (0-4); Lymphocytes # 0.6 K/mcL (0.6-4.6); Lymphocytes % 3.5 %; Mean Corpuscular HGB Conc 32.4 g/dL (31.6-35.5); Mean Corpuscular Hemoglobin 31.2 pg (28.0-33.3); Mean Corpuscular Volume 96.1 fL (83.0-100.0); Mean Platelet Volume 10.2 fL (9.4-12.4); Monocytes # 0.4 K/mcL (0.0-1.3); Monocytes % 2.4 %; Neutrophils # 15.6 K/mcL (1.6-8.9); Platelet Count 232 K/mcL (140-400); Red Blood Count 3.37 M/mcL (3.82-4.97); Red Cell Distribution Width 13.3 % (11.5-14.5); Segmented Neutrophils % 93.2 %
[2016-04-20 04:34] LABS: BUN/Creatinine Ratio 14 (6-26); Blood Urea Nitrogen 9 mg/dL (7-20); Calcium 9.2 mg/dL (8.6-10.8); Carbon Dioxide 20 mEq/L (19-29); Chloride 110 mEq/L (98-109); Glucose 137 mg/dL (70-99); Osmolality,Calculated 289 (280-300); Potassium 4.7 mEq/L (3.5-4.5); Sodium 139 mEq/L (136-145); eGFR For African Americans > 60 (> 60); eGFR For Non-African Americans > 60 (> 60)
[2016-04-20] MEDS: Ipratropium/Albuterol Neb 3 ML IH SCH ×4 (05:04→19:52)
[2016-04-20] MEDS: *HR* Enoxaparin 40 MG/0.4 ML SYRINGE SQ SCH (05:27)
[2016-04-20] MEDS ORDERED: *HR* Dextrose 50 % in Water (Syg) 50 ML SYRINGE IVP PRN ×2 (07:40→11:21)
[2016-04-20] MEDS ORDERED: MethylPREDNISolone 40 MG/ML VIAL IVP SCH ×2 (07:40→10:39)
[2016-04-20] MEDS ORDERED: D5% in Water 1,000 ML IV PRN ×2 (07:40→11:21)
[2016-04-20] MEDS ORDERED: Dextrose Gel 15 GM PO PRN ×4 (07:40→11:21)
[2016-04-20] MEDS: *HR* OxyCODONE Immed Rel 5 MG TABLET PO PRN (08:44)
[2016-04-20] MEDS: Gabapentin 300 MG CAPSULE PO SCH ×2 (08:44→19:54)
[2016-04-20] MEDS: Famotidine 20 MG TABLET PO SCH ×2 (08:45→19:56)
[2016-04-20] MEDS: Nicotine 21 MG PATCH.TD24 TD SCH (08:45)
[2016-04-20] MEDS: Azithromycin 500 MG in D5% in Water 250 ML IVPB SCH (10:06)
[2016-04-20] MEDS: diazePAM 10 MG TABLET PO SCH (10:06)
[2016-04-20 10:16] LABS: ABG Base Excess -1.4 mEq/L (-2.0 to 3.0); ABG HCO3 24.3 mEQ/L (21-27); ABG Oxygen Saturation 97 % (95-98); ABG PCO2 44 mmHg (35-45); ABG PH 7.35 pH Units (7.32-7.45); ABG PO2 90 mmHg (85-104); ABG TCO2 25.7 mEq/L (20-26); Blood Gas FiO2 60 %
[2016-04-20] MEDS ORDERED: diazePAM 10 MG TABLET PO PRN ×2 (10:39→11:21)
--- NOTE | 2016-04-20 10:50 | Pulmonology Consult Note ---
<Lester Casey - Last Filed: 04/20/16 10:46> Date of Encounter: 04/20/16 Time of Encounter: 10:47 Assessment and Plan (1) Acute and chronic respiratory failure with hypoxia Current Visit: Yes Status: Acute Patient had worsening of her oxygen saturation despite high flow oxygen. Patient is requiring BiPAP to maintain saturation. ABG showed pH of 7.35, PCO2 44, PO2 of 90. Differential for etiology includes diffuse pneumonia, obstructive lung disease, interstitial lung disease. CT scan of the chest reveals diffuse groundglass opacities concerning for an underlying interstitial lung disease. Patient will likely require bronchoscopy for further evaluation. This was discussed with the patient. We will make the patient nothing by mouth at midnight tonight with plans for bronchoscopy tomorrow. (2) Abnormal CT scan, chest Current Visit: Yes Status: Acute Concerning for ILD as discussed above. Plan for bronchoscopy tomorrow as discussed above. The changes seen on the most recent CT scan were also present in September 2015, making infection less likely. (3) DVT prophylaxis Current Visit: Yes Status: Acute Lovenox 40 mg subcutaneous daily. History of Present Illness Consult date: 04/20/16 Requesting physician: Nico Kerr Reason for consult: dyspnea Chief complaint: Dyspnea History of present illness: Patient is a 55-year-old female with history of smoking who reports shortness of breath. History is somewhat limited due to the patient being on BiPAP. She was admitted for worsening shortness of breath. She also had migraine type symptoms along with this. This morning the patient had a worsening shortness of breath with oxygen desaturation while on high flow oxygen and with any activity. Patient was placed on BiPAP and seems to be tolerating this well. Patient denies any history of underlying lung disease. She states she has pets at home. There is been no sick contacts. She does not take any medications for her lungs. Past Med Surg Social Fam HX - Past Medical History Medical history: migraine, other (hypotension) Psychiatric history: anxiety, bipolar, depression - Past Surgical History Surgical History: cholecystectomy, herniorrhaphy, hysterectomy - Social History Smoking Status: Current every day smoker Packs per day: 1 Smokeless Tobacco Status: No Alcohol use: none Drug use: none - Family History Father Living Status: Still Living Hx Family Cardiac Disorders: Yes Mother Family Member Ethnicity: Non- Living Status: Still Living Hx Family Cardiac Disorders: No Hx Family Respiratory Disorders: Yes (short of breath) Hx Family Cancer: No Hx Family GI Disorders: No Hx Family Endocrine Disorder: No Hx Family Neuromuscular Disorders: No Hx Family Neurologic Disorders: No Hx Family HEENT Disorders: No Hx Family Autoimmune Disorders: Yes (hyperthyroid) Grandfather Living Status: Hx Family Cardiac Disorders: Yes Medications and Allergies Paroxetine [Paxil] 60 mg PO HS 04/01/15 [History] Buspirone HCl [Buspar] 10 mg PO BID 09/12/15 [History] Diazepam [Valium] 10 mg PO TID 09/12/15 [History] Gabapentin [Neurontin] 600 mg PO BID 09/12/15 [History] PredniSONE 40 mg PO DAILY #10 tablet 10/12/15 [Rx] Butalb/Acetaminophen/Caffeine [Kgnnks-Gmzzadhd-Jcnd 50-325-40] 1 tab PO DAILY PRN 04/18/16 [History] Chlorpromazine HCl 300 mg PO HS 04/18/16 [History] Cyclobenzaprine HCl 5 mg PO TID PRN 04/18/16 [History] Trihexyphenidyl [Artane] 2 mg PO TID 04/18/16 [History] Allergies metoclopramide [From Reglan] Allergy (Mild, Verified 04/18/16 19:25) Itching tramadol Allergy (Mild, Verified 04/18/16 19:25) Itching amitriptyline Allergy (Verified 04/18/16 19:25) Itching Sulfa (Sulfonamide Antibiotics) Allergy (Verified 04/18/16 19:25) See Comments sulfamethoxazole [From Bactrim] Allergy (Verified 04/18/16 19:25) See Comments trimethoprim [From Bactrim] Allergy (Verified 04/18/16 19:25) See Comments blisters on hands and feet lorazepam [From Ativan] Adverse Reaction (Mild, Verified 04/18/16 19:25) Anxiety benztropine [From Cogentin] Adverse Reaction (Verified 04/18/16 19:25) See Comments patient states it causes sores on tongue ciprofloxacin [From Cipro] Adverse Reaction (Verified 04/18/16 19:25) See Comments BLISTERS TO HANDS AND FEET onabotulinumtoxinA [From Botox] Adverse Reaction (Verified 04/18/16 19:25) See Comments patient states it causes neck pain sumatriptan [From Imitrex] Adverse Reaction (Verified 04/18/16 19:25) Agitated topiramate [From Topamax] Adverse Reaction (Verified 04/18/16 19:25) See Comments patient states it makes her hyper ROS unobtainable: other (Due to BiPAP) All Systems: A 10-system review of systems was performed and is negative for pertinent findings except as documented above in the HPI. Physical Examination Vital Signs: Vital Signs, Last 4 Hours Temp Pulse Resp BP Pulse Ox 04/20/16 08:01 98.8 F 89 20 98/62 95 General appearance: other (Mild respiratory distress) Eyes: nonicteric ENT: oropharynx dry Effort: very labored Cardiovascular: regular rate and rhythm Results - Laboratory Findings CBC and BMP: 04/20/16 03:42 04/20/16 03:42 ABG ABG pH 7.35 pH Units (7.32-7.45) 04/20/16 10:00 ABG pCO2 44 mmHg (35-45) 04/20/16 10:00 ABG pO2 90 mmHg (85-104) 04/20/16 10:00 ABG O2 Saturation 97 % (95-98) 04/20/16 10:00 PT/INR, D-dimer PT 16.7 Seconds (9.4-12.1) H 04/19/16 06:14 D-Dimer 1376 ng/mLFEU (0-500) H 04/18/16 13:57 Abnormal lab findings: Abnormal lab results WBC 16.8 K/mcL (4.3-11.1) H 04/20/16 03:42 RBC 3.37 M/mcL (3.82-4.97) L 04/20/16 03:42 Hgb 10.5 g/dL (11.5-15.4) L 04/20/16 03:42 Hct 32.4 % (35.3-44.9) L 04/20/16 03:42 Neutrophils # 15.6 K/mcL (1.6-8.9) H 04/20/16 03:42 ESR 47 mm/hr (0-15) H 04/18/16 21:47 PT 16.7 Seconds (9.4-12.1) H 04/19/16 06:14 APTT 56.1 Seconds (26.0-36.0) H 04/18/16 13:57 Fibrinogen 658 mg/dL (169-393) H 04/19/16 06:14 D-Dimer 1376 ng/mLFEU (0-500) H 04/18/16 13:57 VBG pCO2 38 mmHg (41-51) L 04/19/16 06:14 VBG pO2 125 mmHg (25-40) H 04/19/16 06:14 Potassium 4.7 mEq/L (3.5-4.5) H 04/20/16 03:42 Chloride 110 mEq/L (98-109) H 04/20/16 03:42 Glucose 137 mg/dL (70-99) H 04/20/16 03:42 POC Glucose 168 (58-89) H 04/20/16 07:30 Ionized Calcium 1.04 mmol/L (1.15-1.35) L 04/18/16 21:47 AST 36 Units/L (5-34) H 04/19/16 06:14 Alkaline Phosphatase 219 Units/L (38-126) H 04/19/16 06:14 C-Reactive Protein 273 mg/L (Less than 5) H 04/18/16 21:47 Albumin 2.5 g/dL (3.5-5.0) L 04/19/16 06:14 Globulin 3.6 g/dL (2.4-3.5) H 04/19/16 06:14 Albumin/Globulin Ratio 0.7 (1.1-2.2) L 04/19/16 06:14 Ur Specific [place] > 1.030 (1.010-1.025) H 04/18/16 15:40 Urine Blood Trace (Negative) H 04/18/16 15:40 Ur Barbiturates Screen Positive ng/mL (Ypcyfn=561) H 04/18/16 15:40 U Benzodiazepines Scrn Positive ng/mL (Sjtcdj=006) H 04/18/16 15:40 - Microbiology Findings Microbiology Findings: Microbiology, Last 48 Hours 04/18/16 Unknown Legionella Antigen - Final Urine,Clean Catch Streptococcus pneumoniae Antigen (M - Final - Clinical Findings Intake & Output: Intake & Output 04/19/16 04/20/16 04/20/16 23:59 07:59 15:59 Intake Total 1270 / 1270 Output Total 500 / 500 300 / 300 Balance 770 / 770 -300 / -300 Weight 75.9 kg Consult Discharge Plan - Plan Referrals: Iman Monae, STUDENT SERVICES REPRESENTATIVE [Primary Care Provider] - <NguyenmatildaRussell maciel Chino - Last Filed: 04/20/16 11:15> Date of Encounter: 04/20/16 All Systems: A 10-system review of systems was performed and is negative for pertinent findings except as documented above in the HPI. Physical Examination Vital Signs: Vital Signs, Last 4 Hours Temp Pulse Resp BP Pulse Ox 04/20/16 10:42 22 94 L 04/20/16 08:01 98.8 F 89 20 98/62 95 Results - Laboratory Findings CBC and BMP: 04/20/16 03:42 04/20/16 03:42 ABG ABG pH 7.35 pH Units (7.32-7.45) 04/20/16 10:00 ABG pCO2 44 mmHg (35-45) 04/20/16 10:00 ABG pO2 90 mmHg (85-104) 04/20/16 10:00 ABG O2 Saturation 97 % (95-98) 04/20/16 10:00 PT/INR, D-dimer PT 16.7 Seconds (9.4-12.1) H 04/19/16 06:14 D-Dimer 1376 ng/mLFEU (0-500) H 04/18/16 13:57 Abnormal lab findings: Abnormal lab results WBC 16.8 K/mcL (4.3-11.1) H 04/20/16 03:42 RBC 3.37 M/mcL (3.82-4.97) L 04/20/16 03:42 Hgb 10.5 g/dL (11.5-15.4) L 04/20/16 03:42 Hct 32.4 % (35.3-44.9) L 04/20/16 03:42 Neutrophils # 15.6 K/mcL (1.6-8.9) H 04/20/16 03:42 ESR 47 mm/hr (0-15) H 04/18/16 21:47 PT 16.7 Seconds (9.4-12.1) H 04/19/16 06:14 APTT 56.1 Seconds (26.0-36.0) H 04/18/16 13:57 Fibrinogen 658 mg/dL (169-393) H 04/19/16 06:14 D-Dimer 1376 ng/mLFEU (0-500) H 04/18/16 13:57 VBG pCO2 38 mmHg (41-51) L 04/19/16 06:14 VBG pO2 125 mmHg (25-40) H 04/19/16 06:14 Potassium 4.7 mEq/L (3.5-4.5) H 04/20/16 03:42 Chloride 110 mEq/L (98-109) H 04/20/16 03:42 Glucose 137 mg/dL (70-99) H 04/20/16 03:42 POC Glucose 168 (58-89) H 04/20/16 07:30 Ionized Calcium 1.04 mmol/L (1.15-1.35) L 04/18/16 21:47 AST 36 Units/L (5-34) H 04/19/16 06:14 Alkaline Phosphatase 219 Units/L (38-126) H 04/19/16 06:14 C-Reactive Protein 273 mg/L (Less than 5) H 04/18/16 21:47 Albumin 2.5 g/dL (3.5-5.0) L 04/19/16 06:14 Globulin 3.6 g/dL (2.4-3.5) H 04/19/16 06:14 Albumin/Globulin Ratio 0.7 (1.1-2.2) L 04/19/16 06:14 Ur Specific [place] > 1.030 (1.010-1.025) H 04/18/16 15:40 Urine Blood Trace (Negative) H 04/18/16 15:40 Ur Barbiturates Screen Positive ng/mL (Gblyix=544) H 04/18/16 15:40 U Benzodiazepines Scrn Positive ng/mL (Qztysu=671) H 04/18/16 15:40 - Microbiology Findings Microbiology Findings: Microbiology, Last 48 Hours 04/18/16 Unknown Legionella Antigen - Final Urine,Clean Catch Streptococcus pneumoniae Antigen (M - Final - Clinical Findings Intake & Output: Intake & Output 04/19/16 04/20/16 04/20/16 23:59 07:59 15:59 Intake Total 1270 / 1270 Output Total 500 / 500 300 / 300 Balance 770 / 770 -300 / -300 Weight 75.9 kg - Attending Attestation I examined this patient and my medical decision-making was reviewed with the DATA PROCESSING CONTROL CLERK/PA/Advanced Practice Nurse/Resident Physician. I agree with the documented findings, disposition and treatment plan as described except to the extent set forth below. Patient seen and examined. Labs, radiology, chart personally reviewed. Agree with resident's history and physical, assessment, plan with following comments: ACID CUTTER: Patient follows commands, Pulmonary: I was called by the hospitalist to see this patient due to acute hypoxic respiratory failure. I have reviewed her previous CT chest was significant abnormalities even a few months back and my suspicion she has interstitial lung disease such as nonspecific interstitial pneumonitis, desquamative interstitial pneumonia with a smoking history and obviously other differential diagnosis would be hypersensitivity pneumonitis, atypical infection , pulmonary edema. We will increase systemic steroids and explained to patient she will need bronchoscopy and explained to her old risks, alternative, benefits of the procedure and she agreed to have it. Will keep patient NPO and if stable enough, will plan to do it. I believe ideally patient will need open lung biopsy for diagnosis and she needs to quit smoking. Continue bronchodilators and antibiotics with systemic steroid has COPD exacerbation is possibility. I transferred patient to intensive care unit for close monitoring and her condition could deteriorate requiring invasive mechanical ventilation. Cardiovascular: Without any and echocardiogram to evaluate pulmonary hypertension. GI: Nutrition per dietary and GI prophylaxis per routine Heme: DVT prophylaxis per routine ID: Continue antibiotics and plan to de-escalation Renal; urine out put and renal funtion reviewed Endorcine: blood glucose is monitored Lines: all lines checked and no evidence of infections Skin: skin care to prevent pressure ulcers per nursing routine care I spent 35 min of Critical Care time with this patient. It involved decision making of high complexity to assess, manipulate, and support vital organ system failure and/or to prevent further life threatening deterioration of the patient' s condition. The time involved in the performance of separately reportable procedures was not counted toward critical care time.
[2016-04-20] MEDS ORDERED: Naloxone 0.4 MG/ML INJ IVP PRN (11:21)
[2016-04-20] MEDS ORDERED: Mag Hydrox/Al Hydrox/Simeth 30 ML UDC PO PRN (11:21)
[2016-04-20] MEDS ORDERED: Acetaminophen 325 MG TABLET PO PRN (11:21)
[2016-04-20] MEDS ORDERED: *HR* Promethazine 25 MG/ML VIAL IVP PRN (11:21)
[2016-04-20] MEDS ORDERED: Albuterol 2.5 MG/3 ML NEBULIZER IH PRN (11:21)
[2016-04-20] MEDS ORDERED: Insulin LISPRO 300 UNITS/3 ML VIAL SQ SCH (11:30)
[2016-04-20] MEDS: Insulin LISPRO 300 UNITS/3 ML VIAL SQ SCH ×2 (11:56→17:37)
[2016-04-20] MEDS ORDERED: Furosemide 20 MG/2 ML VIAL IVP ONE (11:57)
[2016-04-20] MEDS: Furosemide 20 MG/2 ML VIAL IVP SCH ×3 (11:59→19:53)
[2016-04-20] MEDS ORDERED: Ipratropium/Albuterol Neb 3 ML IH SCH (12:00)
[2016-04-20] MEDS: MethylPREDNISolone 40 MG/ML VIAL IVP SCH ×2 (12:02→18:05)
--- NOTE | 2016-04-20 13:51 | Internal Med Progress Note ---
Date of Encounter: 04/20/16 Time of Encounter: 11:30 - Assessment and plan (1) Acute respiratory failure with hypoxia Current Visit: Yes Status: Acute Assessment and plan: Acute hypoxic respiratory failure. Requiring BiPAP with no significant improvement. Consulted pulmonology. Discussed plan of care with them. Recommend transfer to ICU as patient remains to do poorly here. She could have underlying interstitial pneumonitis or hypersensitivity pneumonitis. Recommend increase dosages IV steroids. Will transfer to ICU. (2) Atypical pneumonia Current Visit: Yes Status: Acute (3) SIRS (systemic inflammatory response syndrome) Current Visit: Yes Status: Acute Assessment and plan: WBC count elevated today but most likely due to steroid use. (4) Tobacco dependence Current Visit: No Status: Acute Assessment and plan: Encourage cessation. (5) Vomiting Current Visit: Yes Status: Resolved Assessment and plan: Resolved now. Qualifiers: Vomiting type: unspecified Vomiting Intractability: non-intractable Nausea presence: with nausea Qualified Code(s): R11.2 - Nausea with vomiting, unspecified (6) Bipolar disorder Current Visit: Yes Status: Chronic Assessment and plan: Continue home medications for this condition. Qualifiers: Active/Remission status: currently active Current bipolar episode type: mixed Current episode severity: severe Psychotic features: without psychotic features Qualified Code(s): F31.63 - Bipolar disorder, current episode mixed, severe, without psychotic features (7) Chronic mixed headache syndrome Current Visit: Yes Status: Chronic Assessment and plan: Headache improved now. Supportive care. (8) Elevated blood sugar Current Visit: Yes Status: Acute Assessment and plan: Patient has hyperglycemia but her A1c level is 4.8. Her current hyperglycemia is likely due to steroid use. - Subjective Interval history: Patient continues to be hypoxic and requiring BiPAP at this time. She has been on high flow oxygen since yesterday with no significant improvement. Headache has improved. She continues to ask for narcotic pain medications. - Constitutional Vitals: Temp Pulse Resp BP Pulse Ox 98.8 F 73 25 109/69 95 04/20/16 08:01 04/20/16 12:00 04/20/16 12:00 04/20/16 12:00 04/20/16 12:00 General appearance: Present: cooperative, mild distress, A&O X 3, pleasant, obese, answers questions appropriately - Respiratory Respiratory exam: Present: decreased breath sounds (Diminished breath sounds bilaterally), prolonged expiratory phase, respiratory distress, wheezes Additional comments: Coarse crackles present at both bases - Cardiovascular Cardiovascular exam: Present: RRR, +S1, +S2. Absent: diastolic murmur, gallop, rubs, systolic murmur - GI/Abdominal GI/Abdominal exam: Present: normal bowel sounds, soft, no peritoneal signs. Absent: distended, tenderness - Extremities Exam Extremities exam: Present: warm, radial pulses palpable and symetrical. Absent : calf tenderness, cyanotic, pedal edema - Neurological Exam Neurological exam: Present: CN II-XII intact, oriented X3, no focal deficits. Absent: facial droop, speech deficit Internal Medicine: Result - Labs CBC & Chem 7: 04/20/16 03:42 04/20/16 03:42 Labs: Short CBC 04/20/16 Range/Units 03:42 WBC 16.8 H (4.3-11.1) K/mcL Hgb 10.5 L (11.5-15.4) g/dL Hct 32.4 L (35.3-44.9) % Plt Count 232 (140-400) K/mcL Neutrophils # 15.6 H (1.6-8.9) K/mcL BMP 04/20/16 03:42 Sodium 139 Potassium 4.7 H Chloride 110 H Carbon Dioxide 20 BUN 9 Creatinine 0.64 Glucose 137 H Calcium 9.2 - ABG Interpretation ABG results: ABG ABG pH 7.35 pH Units (7.32-7.45) 04/20/16 10:00 ABG pCO2 44 mmHg (35-45) 04/20/16 10:00 ABG pO2 90 mmHg (85-104) 04/20/16 10:00 ABG O2 Saturation 97 % (95-98) 04/20/16 10:00 PT/INR, D-dimer PT 16.7 Seconds (9.4-12.1) H 04/19/16 06:14 D-Dimer 1376 ng/mLFEU (0-500) H 04/18/16 13:57 - VTE Documentation of Mechanical Device: Intermittent pneumatic compression device Consult Discharge Plan - Plan Referrals: Iman Monae, FA[employer] WORKER [Primary Care Provider] - - Attending Attestation This document has been at least partially created by [employer] recognition technology by Dr. Kerr. Errors in grammar, wording or other phrases may exist. If errors are found after the documentation is signed, they will be addressed individually in the addendum section of this document when appropriate. Medical Decision Making - MDM Narrative Medical decision making narrative: High risk for complications - Lab Data Lab results reviewed: Yes I reviewed the patient's lab results. Result diagrams: 04/20/16 03:42 04/20/16 03:42 Lab Results 04/18/16 04/18/16 04/18/16 Range/Units 21:41 21:47 21:47 WBC (4.3-11.1) K/mcL RBC (3.82-4.97) M/mcL Hgb (11.5-15.4) g/dL Hct (35.3-44.9) % MCV (83.0-100.0) fL MCH (28.0-33.3) pg MCHC (31.6-35.5) g/dL RDW (11.5-14.5) % Plt Count (140-400) K/mcL MPV (9.4-12.4) fL Immature Gran % (0-4) % Seg Neutrophils % % Lymphocytes % % Monocytes % % Eosinophils % % Basophils % % Neutrophils # (1.6-8.9) K/mcL Lymphocytes # (0.6-4.6) K/mcL Monocytes # (0.0-1.3) K/mcL Eosinophils # (0.0-0.6) K/mcL Basophils # (0.0-0.2) K/mcL ESR 47 H (0-15) mm/hr PT (9.4-12.1) Seconds INR Fibrinogen (169-393) mg/dL Factor V Leiden Interp (Normal) ABG pH (7.32-7.45) pH Units ABG pCO2 (35-45) mmHg ABG pO2 (85-104) mmHg ABG HCO3 (21-27) mEQ/L ABG Total CO2 (20-26) mEq/L ABG O2 Saturation (95-98) % ABG Base Excess (-2.0 to 3.0) mEq/L VBG pH (7.32-7.42) pH Units VBG pCO2 (41-51) mmHg VBG pO2 (25-40) mmHg VBG HCO3 (21-27) mEq/L Blood Gas Modality Inspired O2 % Sodium (136-145) mEq/L Potassium (3.5-4.5) mEq/L Chloride (98-109) mEq/L Carbon Dioxide (19-29) mEq/L BUN (7-20) mg/dL Creatinine (0.57-1.11) mg/dL Est GFR ( Amer) (> 60) Est GFR (Non-Af Amer) (> 60) BUN/Creatinine Ratio (6-26) Glucose (70-99) mg/dL POC Glucose 139 H (58-89) Est Mean Plasma Glucose mg/dl Hemoglobin A1c ( - 5.6) % Calculated Osmolality (280-300) Lactic Acid 1.0 (0.5-2.2) mmol/L Calcium (8.6-10.8) mg/dL Ionized Calcium (1.15-1.35) mmol/L Phosphorus (2.3-4.7) mg/dL Magnesium (1.6-2.6) mg/dL Total Bilirubin (0.2-1.2) mg/dL AST (5-34) Units/L ALT (0-55) Units/L Alkaline Phosphatase (38-126) Units/L Troponin I (0-0.03) ng/mL C-Reactive Protein (Less than 5) mg/L B-Natriuretic Peptide (0-100) pg/mL Serum Total Protein (6.0-8.3) g/dL Albumin (3.5-5.0) g/dL Globulin (2.4-3.5) g/dL Albumin/Globulin Ratio (1.1-2.2) TSH (0.350-4.840) mcIU/mL Rheumatoid Factor (0-29) IU/mL 04/18/16 04/18/16 04/19/16 Range/Units 21:47 21:47 06:14 WBC (4.3-11.1) K/mcL RBC (3.82-4.97) M/mcL Hgb (11.5-15.4) g/dL Hct (35.3-44.9) % MCV (83.0-100.0) fL MCH (28.0-33.3) pg MCHC (31.6-35.5) g/dL RDW (11.5-14.5) % Plt Count (140-400) K/mcL MPV (9.4-12.4) fL Immature Gran % (0-4) % Seg Neutrophils % % Lymphocytes % % Monocytes % % Eosinophils % % Basophils % % Neutrophils # (1.6-8.9) K/mcL Lymphocytes # (0.6-4.6) K/mcL Monocytes # (0.0-1.3) K/mcL Eosinophils # (0.0-0.6) K/mcL Basophils # (0.0-0.2) K/mcL ESR (0-15) mm/hr PT (9.4-12.1) Seconds INR Fibrinogen (169-393) mg/dL Factor V Leiden Interp (Normal) ABG pH (7.32-7.45) pH Units ABG pCO2 (35-45) mmHg ABG pO2 (85-104) mmHg ABG HCO3 (21-27) mEQ/L ABG Total CO2 (20-26) mEq/L ABG O2 Saturation (95-98) % ABG Base Excess (-2.0 to 3.0) mEq/L VBG pH (7.32-7.42) pH Units VBG pCO2 (41-51) mmHg VBG pO2 (25-40) mmHg VBG HCO3 (21-27) mEq/L Blood Gas Modality Inspired O2 % Sodium (136-145) mEq/L Potassium (3.5-4.5) mEq/L Chloride (98-109) mEq/L Carbon Dioxide (19-29) mEq/L BUN (7-20) mg/dL Creatinine (0.57-1.11) mg/dL Est GFR ( Amer) (> 60) Est GFR (Non-Af Amer) (> 60) BUN/Creatinine Ratio (6-26) Glucose (70-99) mg/dL POC Glucose (58-89) Est Mean Plasma Glucose mg/dl Hemoglobin A1c ( - 5.6) % Calculated Osmolality (280-300) Lactic Acid (0.5-2.2) mmol/L Calcium (8.6-10.8) mg/dL Ionized Calcium 1.04 L (1.15-1.35) mmol/L Phosphorus 3.0 (2.3-4.7) mg/dL Magnesium 1.7 (1.6-2.6) mg/dL Total Bilirubin (0.2-1.2) mg/dL AST (5-34) Units/L ALT (0-55) Units/L Alkaline Phosphatase (38-126) Units/L Troponin I 0.01 0.00 (0-0.03) ng/mL C-Reactive Protein 273 H (Less than 5) mg/L B-Natriuretic Peptide (0-100) pg/mL Serum Total Protein (6.0-8.3) g/dL Albumin (3.5-5.0) g/dL Globulin (2.4-3.5) g/dL Albumin/Globulin Ratio (1.1-2.2) TSH (0.350-4.840) mcIU/mL Rheumatoid Factor (0-29) IU/mL 04/19/16 04/19/16 04/19/16 Range/Units 06:14 06:14 06:14 WBC 15.7 H (4.3-11.1) K/mcL RBC 3.42 L (3.82-4.97) M/mcL Hgb 10.8 L D (11.5-15.4) g/dL Hct 32.3 L (35.3-44.9) % MCV 94.4 (83.0-100.0) fL MCH 31.6 (28.0-33.3) pg MCHC 33.4 (31.6-35.5) g/dL RDW 13.5 (11.5-14.5) % Plt Count 205 (140-400) K/mcL MPV 9.8 (9.4-12.4) fL Immature Gran % (0-4) % Seg Neutrophils % % Lymphocytes % % Monocytes % % Eosinophils % % Basophils % % Neutrophils # (1.6-8.9) K/mcL Lymphocytes # (0.6-4.6) K/mcL Monocytes # (0.0-1.3) K/mcL Eosinophils # (0.0-0.6) K/mcL Basophils # (0.0-0.2) K/mcL ESR (0-15) mm/hr PT (9.4-12.1) Seconds INR Fibrinogen (169-393) mg/dL Factor V Leiden Interp (Normal) ABG pH (7.32-7.45) pH Units ABG pCO2 (35-45) mmHg ABG pO2 (85-104) mmHg ABG HCO3 (21-27) mEQ/L ABG Total CO2 (20-26) mEq/L ABG O2 Saturation (95-98) % ABG Base Excess (-2.0 to 3.0) mEq/L VBG pH (7.32-7.42) pH Units VBG pCO2 (41-51) mmHg VBG pO2 (25-40) mmHg VBG HCO3 (21-27) mEq/L Blood Gas Modality Inspired O2 % Sodium 135 L (136-145) mEq/L Potassium 3.8 (3.5-4.5) mEq/L Chloride 105 (98-109) mEq/L Carbon Dioxide 21 (19-29) mEq/L BUN 10 (7-20) mg/dL Creatinine 0.71 (0.57-1.11) mg/dL Est GFR ( Amer) > 60 (> 60) Est GFR (Non-Af Amer) > 60 (> 60) BUN/Creatinine Ratio 14 (6-26) Glucose 128 H (70-99) mg/dL POC Glucose (58-89) Est Mean Plasma Glucose 91 mg/dl Hemoglobin A1c 4.8 ( - 5.6) % Calculated Osmolality 281 (280-300) Lactic Acid (0.5-2.2) mmol/L Calcium 9.0 (8.6-10.8) mg/dL Ionized Calcium (1.15-1.35) mmol/L Phosphorus (2.3-4.7) mg/dL Magnesium (1.6-2.6) mg/dL Total Bilirubin 0.7 (0.2-1.2) mg/dL AST 36 H (5-34) Units/L ALT 44 (0-55) Units/L Alkaline Phosphatase 219 H (38-126) Units/L Troponin I (0-0.03) ng/mL C-Reactive Protein (Less than 5) mg/L B-Natriuretic Peptide (0-100) pg/mL Serum Total Protein 6.1 (6.0-8.3) g/dL Albumin 2.5 L (3.5-5.0) g/dL Globulin 3.6 H (2.4-3.5) g/dL Albumin/Globulin Ratio 0.7 L (1.1-2.2) TSH 1.224 (0.350-4.840) mcIU/mL Rheumatoid Factor (0-29) IU/mL 04/19/16 04/19/16 04/19/16 Range/Units 06:14 06:14 06:14 WBC (4.3-11.1) K/mcL RBC (3.82-4.97) M/mcL Hgb (11.5-15.4) g/dL Hct (35.3-44.9) % MCV (83.0-100.0) fL MCH (28.0-33.3) pg MCHC (31.6-35.5) g/dL RDW (11.5-14.5) % Plt Count (140-400) K/mcL MPV (9.4-12.4) fL Immature Gran % (0-4) % Seg Neutrophils % % Lymphocytes % % Monocytes % % Eosinophils % % Basophils % % Neutrophils # (1.6-8.9) K/mcL Lymphocytes # (0.6-4.6) K/mcL Monocytes # (0.0-1.3) K/mcL Eosinophils # (0.0-0.6) K/mcL Basophils # (0.0-0.2) K/mcL ESR (0-15) mm/hr PT (9.4-12.1) Seconds INR Fibrinogen 658 H (169-393) mg/dL Factor V Leiden Interp (Normal) ABG pH (7.32-7.45) pH Units ABG pCO2 (35-45) mmHg ABG pO2 (85-104) mmHg ABG HCO3 (21-27) mEQ/L ABG Total CO2 (20-26) mEq/L ABG O2 Saturation (95-98) % ABG Base Excess (-2.0 to 3.0) mEq/L VBG pH 7.41 (7.32-7.42) pH Units VBG pCO2 38 L (41-51) mmHg VBG pO2 125 H (25-40) mmHg VBG HCO3 24.1 (21-27) mEq/L Blood Gas Modality Inspired O2 % Sodium (136-145) mEq/L Potassium (3.5-4.5) mEq/L Chloride (98-109) mEq/L Carbon Dioxide (19-29) mEq/L BUN (7-20) mg/dL Creatinine (0.57-1.11) mg/dL Est GFR ( Amer) (> 60) Est GFR (Non-Af Amer) (> 60) BUN/Creatinine Ratio (6-26) Glucose (70-99) mg/dL POC Glucose (58-89) Est Mean Plasma Glucose mg/dl Hemoglobin A1c ( - 5.6) % Calculated Osmolality (280-300) Lactic Acid (0.5-2.2) mmol/L Calcium (8.6-10.8) mg/dL Ionized Calcium (1.15-1.35) mmol/L Phosphorus (2.3-4.7) mg/dL Magnesium (1.6-2.6) mg/dL Total Bilirubin (0.2-1.2) mg/dL AST (5-34) Units/L ALT (0-55) Units/L Alkaline Phosphatase (38-126) Units/L Troponin I (0-0.03) ng/mL C-Reactive Protein (Less than 5) mg/L B-Natriuretic Peptide 16 (0-100) pg/mL Serum Total Protein (6.0-8.3) g/dL Albumin (3.5-5.0) g/dL Globulin (2.4-3.5) g/dL Albumin/Globulin Ratio (1.1-2.2) TSH (0.350-4.840) mcIU/mL Rheumatoid Factor (0-29) IU/mL 04/19/16 04/19/16 04/19/16 Range/Units 06:14 06:14 06:14 WBC (4.3-11.1) K/mcL RBC (3.82-4.97) M/mcL Hgb (11.5-15.4) g/dL Hct (35.3-44.9) % MCV (83.0-100.0) fL MCH (28.0-33.3) pg MCHC (31.6-35.5) g/dL RDW (11.5-14.5) % Plt Count (140-400) K/mcL MPV (9.4-12.4) fL Immature Gran % (0-4) % Seg Neutrophils % % Lymphocytes % % Monocytes % % Eosinophils % % Basophils % % Neutrophils # (1.6-8.9) K/mcL Lymphocytes # (0.6-4.6) K/mcL Monocytes # (0.0-1.3) K/mcL Eosinophils # (0.0-0.6) K/mcL Basophils # (0.0-0.2) K/mcL ESR (0-15) mm/hr PT 16.7 H (9.4-12.1) Seconds INR 1.5 Fibrinogen (169-393) mg/dL Factor V Leiden Interp Normal (Normal) ABG pH (7.32-7.45) pH Units ABG pCO2 (35-45) mmHg ABG pO2 (85-104) mmHg ABG HCO3 (21-27) mEQ/L ABG Total CO2 (20-26) mEq/L ABG O2 Saturation (95-98) % ABG Base Excess (-2.0 to 3.0) mEq/L VBG pH (7.32-7.42) pH Units VBG pCO2 (41-51) mmHg VBG pO2 (25-40) mmHg VBG HCO3 (21-27) mEq/L Blood Gas Modality Inspired O2 % Sodium (136-145) mEq/L Potassium (3.5-4.5) mEq/L Chloride (98-109) mEq/L Carbon Dioxide (19-29) mEq/L BUN (7-20) mg/dL Creatinine (0.57-1.11) mg/dL Est GFR ( Amer) (> 60) Est GFR (Non-Af Amer) (> 60) BUN/Creatinine Ratio (6-26) Glucose (70-99) mg/dL POC Glucose (58-89) Est Mean Plasma Glucose mg/dl Hemoglobin A1c ( - 5.6) % Calculated Osmolality (280-300) Lactic Acid (0.5-2.2) mmol/L Calcium (8.6-10.8) mg/dL Ionized Calcium (1.15-1.35) mmol/L Phosphorus (2.3-4.7) mg/dL Magnesium (1.6-2.6) mg/dL Total Bilirubin (0.2-1.2) mg/dL AST (5-34) Units/L ALT (0-55) Units/L Alkaline Phosphatase (38-126) Units/L Troponin I (0-0.03) ng/mL C-Reactive Protein (Less than 5) mg/L B-Natriuretic Peptide (0-100) pg/mL Serum Total Protein (6.0-8.3) g/dL Albumin (3.5-5.0) g/dL Globulin (2.4-3.5) g/dL Albumin/Globulin Ratio (1.1-2.2) TSH (0.350-4.840) mcIU/mL Rheumatoid Factor < 15 (0-29) IU/mL 04/19/16 04/19/16 04/19/16 Range/Units 08:07 11:50 12:53 WBC (4.3-11.1) K/mcL RBC (3.82-4.97) M/mcL Hgb (11.5-15.4) g/dL Hct (35.3-44.9) % MCV (83.0-100.0) fL MCH (28.0-33.3) pg MCHC (31.6-35.5) g/dL RDW (11.5-14.5) % Plt Count (140-400) K/mcL MPV (9.4-12.4) fL Immature Gran % (0-4) % Seg Neutrophils % % Lymphocytes % % Monocytes % % Eosinophils % % Basophils % % Neutrophils # (1.6-8.9) K/mcL Lymphocytes # (0.6-4.6) K/mcL Monocytes # (0.0-1.3) K/mcL Eosinophils # (0.0-0.6) K/mcL Basophils # (0.0-0.2) K/mcL ESR (0-15) mm/hr PT (9.4-12.1) Seconds INR Fibrinogen (169-393) mg/dL Factor V Leiden Interp (Normal) ABG pH (7.32-7.45) pH Units ABG pCO2 (35-45) mmHg ABG pO2 (85-104) mmHg ABG HCO3 (21-27) mEQ/L ABG Total CO2 (20-26) mEq/L ABG O2 Saturation (95-98) % ABG Base Excess (-2.0 to 3.0) mEq/L VBG pH (7.32-7.42) pH Units VBG pCO2 (41-51) mmHg VBG pO2 (25-40) mmHg VBG HCO3 (21-27) mEq/L Blood Gas Modality Inspired O2 % Sodium (136-145) mEq/L Potassium (3.5-4.5) mEq/L Chloride (98-109) mEq/L Carbon Dioxide (19-29) mEq/L BUN (7-20) mg/dL Creatinine (0.57-1.11) mg/dL Est GFR ( Amer) (> 60) Est GFR (Non-Af Amer) (> 60) BUN/Creatinine Ratio (6-26) Glucose (70-99) mg/dL POC Glucose 181 H 148 H (58-89) Est Mean Plasma Glucose mg/dl Hemoglobin A1c ( - 5.6) % Calculated Osmolality (280-300) Lactic Acid (0.5-2.2) mmol/L Calcium (8.6-10.8) mg/dL Ionized Calcium (1.15-1.35) mmol/L Phosphorus (2.3-4.7) mg/dL Magnesium (1.6-2.6) mg/dL Total Bilirubin (0.2-1.2) mg/dL AST (5-34) Units/L ALT (0-55) Units/L Alkaline Phosphatase (38-126) Units/L Troponin I 0.01 (0-0.03) ng/mL C-Reactive Protein (Less than 5) mg/L B-Natriuretic Peptide (0-100) pg/mL Serum Total Protein (6.0-8.3) g/dL Albumin (3.5-5.0) g/dL Globulin (2.4-3.5) g/dL Albumin/Globulin Ratio (1.1-2.2) TSH (0.350-4.840) mcIU/mL Rheumatoid Factor (0-29) IU/mL 04/19/16 04/19/16 04/20/16 Range/Units 16:39 20:51 03:42 WBC 16.8 H (4.3-11.1) K/mcL RBC 3.37 L (3.82-4.97) M/mcL Hgb 10.5 L (11.5-15.4) g/dL Hct 32.4 L (35.3-44.9) % MCV 96.1 (83.0-100.0) fL MCH 31.2 (28.0-33.3) pg MCHC 32.4 (31.6-35.5) g/dL RDW 13.3 (11.5-14.5) % Plt Count 232 (140-400) K/mcL MPV 10.2 (9.4-12.4) fL Immature Gran % 0.8 (0-4) % Seg Neutrophils % 93.2 % Lymphocytes % 3.5 % Monocytes % 2.4 % Eosinophils % 0.0 % Basophils % 0.1 % Neutrophils # 15.6 H (1.6-8.9) K/mcL Lymphocytes # 0.6 (0.6-4.6) K/mcL Monocytes # 0.4 (0.0-1.3) K/mcL Eosinophils # 0.0 (0.0-0.6) K/mcL Basophils # 0.0 (0.0-0.2) K/mcL ESR (0-15) mm/hr PT (9.4-12.1) Seconds INR Fibrinogen (169-393) mg/dL Factor V Leiden Interp (Normal) ABG pH (7.32-7.45) pH Units ABG pCO2 (35-45) mmHg ABG pO2 (85-104) mmHg ABG HCO3 (21-27) mEQ/L ABG Total CO2 (20-26) mEq/L ABG O2 Saturation (95-98) % ABG Base Excess (-2.0 to 3.0) mEq/L VBG pH (7.32-7.42) pH Units VBG pCO2 (41-51) mmHg VBG pO2 (25-40) mmHg VBG HCO3 (21-27) mEq/L Blood Gas Modality Inspired O2 % Sodium (136-145) mEq/L Potassium (3.5-4.5) mEq/L Chloride (98-109) mEq/L Carbon Dioxide (19-29) mEq/L BUN (7-20) mg/dL Creatinine (0.57-1.11) mg/dL Est GFR ( Amer) (> 60) Est GFR (Non-Af Amer) (> 60) BUN/Creatinine Ratio (6-26) Glucose (70-99) mg/dL POC Glucose 139 H 158 H (58-89) Est Mean Plasma Glucose mg/dl Hemoglobin A1c ( - 5.6) % Calculated Osmolality (280-300) Lactic Acid (0.5-2.2) mmol/L Calcium (8.6-10.8) mg/dL Ionized Calcium (1.15-1.35) mmol/L Phosphorus (2.3-4.7) mg/dL Magnesium (1.6-2.6) mg/dL Total Bilirubin (0.2-1.2) mg/dL AST (5-34) Units/L ALT (0-55) Units/L Alkaline Phosphatase (38-126) Units/L Troponin I (0-0.03) ng/mL C-Reactive Protein (Less than 5) mg/L B-Natriuretic Peptide (0-100) pg/mL Serum Total Protein (6.0-8.3) g/dL Albumin (3.5-5.0) g/dL Globulin (2.4-3.5) g/dL Albumin/Globulin Ratio (1.1-2.2) TSH (0.350-4.840) mcIU/mL Rheumatoid Factor (0-29) IU/mL 04/20/16 04/20/16 04/20/16 Range/Units 03:42 07:30 10:00 WBC (4.3-11.1) K/mcL RBC (3.82-4.97) M/mcL Hgb (11.5-15.4) g/dL Hct (35.3-44.9) % MCV (83.0-100.0) fL MCH (28.0-33.3) pg MCHC (31.6-35.5) g/dL RDW (11.5-14.5) % Plt Count (140-400) K/mcL MPV (9.4-12.4) fL Immature Gran % (0-4) % Seg Neutrophils % % Lymphocytes % % Monocytes % % Eosinophils % % Basophils % % Neutrophils # (1.6-8.9) K/mcL Lymphocytes # (0.6-4.6) K/mcL Monocytes # (0.0-1.3) K/mcL Eosinophils # (0.0-0.6) K/mcL Basophils # (0.0-0.2) K/mcL ESR (0-15) mm/hr PT (9.4-12.1) Seconds INR Fibrinogen (169-393) mg/dL Factor V Leiden Interp (Normal) ABG pH 7.35 (7.32-7.45) pH Units ABG pCO2 44 (35-45) mmHg ABG pO2 90 (85-104) mmHg ABG HCO3 24.3 (21-27) mEQ/L ABG Total CO2 25.7 (20-26) mEq/L ABG O2 Saturation 97 (95-98) % ABG Base Excess -1.4 (-2.0 to 3.0) mEq/L VBG pH (7.32-7.42) pH Units VBG pCO2 (41-51) mmHg VBG pO2 (25-40) mmHg VBG HCO3 (21-27) mEq/L Blood Gas Modality BIPAP Inspired O2 60 % Sodium 139 (136-145) mEq/L Potassium 4.7 H (3.5-4.5) mEq/L Chloride 110 H (98-109) mEq/L Carbon Dioxide 20 (19-29) mEq/L BUN 9 (7-20) mg/dL Creatinine 0.64 (0.57-1.11) mg/dL Est GFR ( Amer) > 60 (> 60) Est GFR (Non-Af Amer) > 60 (> 60) BUN/Creatinine Ratio 14 (6-26) Glucose 137 H (70-99) mg/dL POC Glucose 168 H (58-89) Est Mean Plasma Glucose mg/dl Hemoglobin A1c ( - 5.6) % Calculated Osmolality 289 (280-300) Lactic Acid (0.5-2.2) mmol/L Calcium 9.2 (8.6-10.8) mg/dL Ionized Calcium (1.15-1.35) mmol/L Phosphorus (2.3-4.7) mg/dL Magnesium (1.6-2.6) mg/dL Total Bilirubin (0.2-1.2) mg/dL AST (5-34) Units/L ALT (0-55) Units/L Alkaline Phosphatase (38-126) Units/L Troponin I (0-0.03) ng/mL C-Reactive Protein (Less than 5) mg/L B-Natriuretic Peptide (0-100) pg/mL Serum Total Protein (6.0-8.3) g/dL Albumin (3.5-5.0) g/dL Globulin (2.4-3.5) g/dL Albumin/Globulin Ratio (1.1-2.2) TSH (0.350-4.840) mcIU/mL Rheumatoid Factor (0-29) IU/mL
[2016-04-20] MEDS: *HR* Morphine 2 MG/ML SYRINGE IVP PRN ×2 (13:52→18:19)
--- NOTE | 2016-04-20 17:12 | ECHO - Doppler Report ---
Echocardiogram Name: Angela Montoya Date of Study: 04/20/2016 Date: 1960 Ht: 62.0 in Medical Record#: [id number] Age: 55 Wt: 167.0 lb Gender: Female BSA: 1.77 Order #: [id number] Location: [facility] Room #: [facility] Reading Physician: Gurinder Melo DO, FACSimón, MG GARCIA Chemist Biological: BETO CrespoT, RD Ordering Physician: Lester Casey DO Primary Physician: Iman Monae CNP Indications: dyspnea Impressions: Technically sub-optimal due to clinical status. LVEF 60-65%. Normal LV chamber size, wall thickness and function. Mild left ventricular diastolic dysfunction. Atypical septal motion of unclear etiology. Normal right ventricular structure and function. RVSP was not well obtained due to suboptimal TR envelope. Grossly, there is at least mild pulmonary hypertension. No significant valvular dysfunction. Left Ventricular Wall Motion: Rest Echo Findings All wall segments showed normal motion. Findings: Study Quality * Technically sub-optimal due to clinical status. ECG Findings * Normal sinus rhythm. Left Ventricle * LVEF 60-65%. * Normal LV chamber size, wall thickness and function. * Mild left ventricular diastolic dysfunction. * Atypical septal motion of unclear etiology. Right Ventricle * Normal right ventricular structure and function. Left Atrium * Mildly dilated left atrium. Right Atrium * Normal right atrial size. Interatrial Septum * Interatrial septum not well evaluated. Aortic Valve * Trileaflet aortic valve with normal function. * No aortic regurgitation. * No aortic stenosis. Mitral Valve * Normal mitral valve structure and function. * Trace mitral regurgitation. * No mitral stenosis. Tricuspid Valve * Normal tricuspid valve structure and function. * Trace tricuspid regurgitation. * RVSP was not well obtained due to suboptimal TR envelope. Grossly, there is at least mild pulmonary hypertension. Pulmonic Valve * Pulmonic valve is not well visualized. Aorta * Normally sized aortic root. Pericardium * The pericardium appears normal. IVC * Normal IVC dimensions and inspiratory collapse. Pulmonary Artery * Normal visualized portions of the main pulmonary artery. History History of Smoking Years Packs 0.5 09-13-2015 a Previous Echo was performed. Measurements: BP: 109/ 69 2D Normal Values RVIDd: 2.20 cm <2.7 cm IVSd: 1.10 cm 0.6 - 1.0 cm LVIDd: 4.10 cm 3.7 - 5.6 cm LVPWd: 1.00 cm 0.6 - 1.1 cm LVIDs: 3.10 cm 1.5 - 3.6 cm AO: 2.90 cm < 4.0 cm LA: 2.50 cm 2.0 - 4.0cm %FS: 24.40 cm >25 % LVOT Diam: 2.00 cm LA volume: 33 Mitral Valve Dec Time:268.00 msec Peak E:.80 m/sec Peak A:1.04 m/sec E/A Ratio:0.8 Peak E' Lat Maury:9.26 cm/s Peak E' Med Maury:7.66 cm/s E/E' Lat Ratio:8.6 E/E' Med Ratio:10.4 Tricuspid Valve TV Regurg Peak Grad: 47.00mmHg TV Regurg Peak Maury: 3.43m/sec Updated by Gurinder Melo DO, FACSimón, MG GARCIA on 04/20/2016 5:02:14 PM electronically signed on 04/20/2016 5:07:08 PM with status of Final Wall Motion Shah: 1=Normal, 2=Hypokinesis, 3=Akinesis, 4=Dyskinesis, 5=Aneurysmal, 6=Hyperkinetic, X=Not Visualized (Blank)=Missing
[2016-04-20] MEDS ORDERED: diazePAM 5 MG TABLET PO PRN (18:17)
[2016-04-20] MEDS: Budesonide/Formoterol 160/4.5 MDI IH SCH (19:53)
[2016-04-20] MEDS: chlorproMAZINE 25 MG TABLET PO SCH (19:55)
[2016-04-20] MEDS ORDERED: Budesonide/Formoterol 160/4.5 MDI IH SCH (22:00)
[2016-04-21] MEDS: Ipratropium/Albuterol Neb 3 ML IH SCH ×6 (00:01→20:01)
[2016-04-21] MEDS: MethylPREDNISolone 40 MG/ML VIAL IVP SCH ×4 (00:09→17:28)
[2016-04-21] MEDS: *HR* Morphine 2 MG/ML SYRINGE IVP PRN ×5 (02:54→21:43)
[2016-04-21] MEDS: *HR* Enoxaparin 40 MG/0.4 ML SYRINGE SQ SCH (05:55)
[2016-04-21 06:11] LABS: ABG Base Excess 5.3 mEq/L (-2.0 to 3.0); ABG Oxygen Saturation 93 % (95-98); ABG PCO2 50 mmHg (35-45); ABG PO2 66 mmHg (85-104); ABG TCO2 32.5 mEq/L (20-26)
[2016-04-21 06:23] LABS: Blood Gas FiO2 68 %
[2016-04-21 07:08] LABS: Basophils % 0.1 %; Hematocrit 34.8 % (35.3-44.9); Hemoglobin 11.4 g/dL (11.5-15.4); Immature Granulocytes % 1.4 % (0-4); Lymphocytes # 0.7 K/mcL (0.6-4.6); Lymphocytes % 4.3 %; Mean Corpuscular HGB Conc 32.8 g/dL (31.6-35.5); Mean Corpuscular Hemoglobin 31.8 pg (28.0-33.3); Mean Corpuscular Volume 97.2 fL (83.0-100.0); Mean Platelet Volume 9.6 fL (9.4-12.4); Monocytes # 0.4 K/mcL (0.0-1.3); Monocytes % 2.4 %; Neutrophils # 15.2 K/mcL (1.6-8.9); Platelet Count 284 K/mcL (140-400); Red Blood Count 3.58 M/mcL (3.82-4.97); Red Cell Distribution Width 13.6 % (11.5-14.5); Segmented Neutrophils % 91.8 %
[2016-04-21 07:11] LABS: INR 1.2
[2016-04-21 07:13] LABS: BUN/Creatinine Ratio 29 (6-26); Blood Urea Nitrogen 23 mg/dL (7-20); Calcium 9.8 mg/dL (8.6-10.8); Carbon Dioxide 24 mEq/L (19-29); Chloride 105 mEq/L (98-109); Glucose 131 mg/dL (70-99); Magnesium 2.1 mg/dL (1.6-2.6); Osmolality,Calculated 301 (280-300); Potassium 3.8 mEq/L (3.5-4.5); Sodium 143 mEq/L (136-145); eGFR For African Americans > 60 (> 60); eGFR For Non-African Americans > 60 (> 60)
[2016-04-21 07:23] LABS: Ionized Calcium 1.21 mmol/L (1.15-1.35)
[2016-04-21] MEDS ORDERED: Lidocaine Viscous Oral Soln 15 ML SOLUTION MM ONE ×2 (07:39→07:55)
[2016-04-21] MEDS ORDERED: Lidocaine Viscous Oral Soln 15 ML SOLUTION ONE (07:39)
[2016-04-21] MEDS: Azithromycin 500 MG in D5% in Water 250 ML IVPB SCH (07:43)
[2016-04-21] MEDS: Furosemide 20 MG/2 ML VIAL IVP SCH ×2 (07:43→20:58)
[2016-04-21] MEDS: Budesonide/Formoterol 160/4.5 MDI IH SCH ×2 (07:45→20:02)
[2016-04-21] MEDS: Nicotine 21 MG PATCH.TD24 TD SCH (07:48)
[2016-04-21] MEDS: Famotidine 20 MG TABLET PO SCH ×2 (07:48→20:57)
[2016-04-21] MEDS: Gabapentin 300 MG CAPSULE PO SCH ×2 (07:49→20:57)
[2016-04-21] MEDS ORDERED: *HR* EPINEPHrine 1 MG/10 ML SYRINGE INTRATRACH PRN (07:55)
[2016-04-21] MEDS ORDERED: *HR* Midazolam HCl 5 MG/5 ML VIAL IVP PRN (07:55)
--- NOTE | 2016-04-21 07:55 | Pre-Sedation Evaluation ---
Pre-sedation evaluation - Pre-sedation checklist Date of procedure: 04/21/16 Procedure: Bronchoscopy Recent Vitals: Last Vital Signs Temp 97.6 F 04/21/16 07:12 Pulse 87 04/21/16 06:00 Resp 20 04/21/16 06:00 BP 100/53 04/21/16 06:00 Pulse Ox 93 L 04/21/16 06:00 H&P (including ROS) documented in medical record: Yes Previous reaction to sedatives/anesthetics: No Dietary Status: NPO after Midnight Possible difficult airway: No ASA Classification *see protocol: CLASS III-Severe systemic disease Plan of Care: Pt appropriate candidate for procedure/moderate/conscious sedation , Risks/benefits of procedure/sedation discussed w/ patient/family
[2016-04-21] MEDS ORDERED: *HR* Midazolam HCl 5 MG/5 ML VIAL IVP ONE (07:59)
[2016-04-21] MEDS ORDERED: Ringers Solution, Lactated 1,000 ML IVC SCH (08:00)
[2016-04-21] MEDS ORDERED: *HR* FentaNYL (PF) 100 MCG/2 ML VIAL ONE (08:00)
[2016-04-21] MEDS: *HR* FentaNYL (PF) 100 MCG/2 ML VIAL IVP PRN ×2 (08:13→08:17)
[2016-04-21] MEDS: Insulin LISPRO 300 UNITS/3 ML VIAL SQ SCH ×3 (08:34→17:27)
[2016-04-21 09:59] LABS: Appearance of Body Fluid Clear (Clear); Volume of Body Fluid 9 mL
[2016-04-21 10:02] LABS: Appearance of Body Fluid Clear (Clear)
[2016-04-21 10:03] LABS: Volume of Body Fluid 18 mL
--- NOTE | 2016-04-21 14:02 | Pulmonology Progress Note ---
Date of Encounter: 04/21/16 Time of Encounter: 08:30 Assessment and Plan (1) Pneumonia, organism unspecified Current Visit: Yes Status: Suspected Continue current antibiotics and follow up on the culture and sensitivity from the bronchoscopy (2) ILD (interstitial lung disease) Current Visit: Yes Status: Suspected Reviewing Previous CT chest suspected there is interstitial lung disease and on the top of my differential diagnosis is NSIP and DIP also hypersensitivity pneumonitis in the differential diagnosis, but less likely since patient has history of smoking. Bronchoscopy was done and if no diagnosis patient will need lung biopsy and of course need to quit smoking. Continue intravenous steroid with bronchodilators. (3) Abnormal CT scan, chest Current Visit: Yes Status: Acute As mentioned above. Patient will need follow-up CT chest in about 6-8 weeks. Can be done as outpatient. (4) Acute respiratory failure with hypoxia Current Visit: Yes Status: Acute Continue noninvasive ventilation alternating with high flow oxygen. (5) Tobacco dependence Current Visit: No Status: Acute Subjective Principal diagnosis: Dyspnea Interval history: Patient remain hypoxic and she had bronchoscopy without complications. She feels slightly better. Objective PUL Vital signs: Last Vital Signs Temp 98.4 F 04/21/16 11:24 Pulse 111 04/21/16 12:00 Resp 18 04/21/16 12:00 BP 101/77 04/21/16 12:00 Pulse Ox 91 L 04/21/16 12:00 General appearance: no acute distress Eyes: nonicteric ENT: oropharynx moist Neck: supple, no lymphadenopathy Effort: mildly labored Auscultation: bilateral: rhonchi Percussion: bilateral: not dull Cardiovascular: regular rate and rhythm Gastrointestinal: normoactive bowel sounds, soft, tender Integumentary: normal Extremities: no cyanosis, edema normal mental status, non-focal exam mood appropriate Results - Laboratory Findings CBC and BMP: 04/21/16 06:49 04/21/16 06:49 ABG ABG pH 7.40 pH Units (7.32-7.45) 04/21/16 06:00 ABG pCO2 50 mmHg (35-45) H 04/21/16 06:00 ABG pO2 66 mmHg (85-104) L 04/21/16 06:00 ABG O2 Saturation 93 % (95-98) L 04/21/16 06:00 PT/INR, D-dimer PT 13.0 Seconds (9.4-12.1) H 04/21/16 06:49 D-Dimer 1376 ng/mLFEU (0-500) H 04/18/16 13:57 Abnormal lab findings: Abnormal lab results WBC 16.6 K/mcL (4.3-11.1) H 04/21/16 06:49 RBC 3.58 M/mcL (3.82-4.97) L 04/21/16 06:49 Hgb 11.4 g/dL (11.5-15.4) L 04/21/16 06:49 Hct 34.8 % (35.3-44.9) L 04/21/16 06:49 Neutrophils # 15.2 K/mcL (1.6-8.9) H 04/21/16 06:49 ESR 47 mm/hr (0-15) H 04/18/16 21:47 PT 13.0 Seconds (9.4-12.1) H 04/21/16 06:49 APTT 56.1 Seconds (26.0-36.0) H 04/18/16 13:57 Fibrinogen 658 mg/dL (169-393) H 04/19/16 06:14 D-Dimer 1376 ng/mLFEU (0-500) H 04/18/16 13:57 ABG pCO2 50 mmHg (35-45) H 04/21/16 06:00 ABG pO2 66 mmHg (85-104) L 04/21/16 06:00 ABG HCO3 31.0 mEQ/L (21-27) H 04/21/16 06:00 ABG Total CO2 32.5 mEq/L (20-26) H 04/21/16 06:00 ABG O2 Saturation 93 % (95-98) L 04/21/16 06:00 ABG Base Excess 5.3 mEq/L (-2.0 to 3.0) H 04/21/16 06:00 VBG pCO2 38 mmHg (41-51) L 04/19/16 06:14 VBG pO2 125 mmHg (25-40) H 04/19/16 06:14 BUN 23 mg/dL (7-20) H D 04/21/16 06:49 BUN/Creatinine Ratio 29 (6-26) H 04/21/16 06:49 Glucose 131 mg/dL (70-99) H 04/21/16 06:49 POC Glucose 140 (58-89) H 04/20/16 16:52 Calculated Osmolality 301 (280-300) H 04/21/16 06:49 AST 36 Units/L (5-34) H 04/19/16 06:14 Alkaline Phosphatase 219 Units/L (38-126) H 04/19/16 06:14 C-Reactive Protein 273 mg/L (Less than 5) H 04/18/16 21:47 Albumin 2.5 g/dL (3.5-5.0) L 04/19/16 06:14 Globulin 3.6 g/dL (2.4-3.5) H 04/19/16 06:14 Albumin/Globulin Ratio 0.7 (1.1-2.2) L 04/19/16 06:14 Ur Specific [place] > 1.030 (1.010-1.025) H 04/18/16 15:40 Urine Blood Trace (Negative) H 04/18/16 15:40 Ur Barbiturates Screen Positive ng/mL (Nkmxvv=328) H 04/18/16 15:40 U Benzodiazepines Scrn Positive ng/mL (Oebpen=895) H 04/18/16 15:40 - Microbiology Findings Microbiology Findings: Microbiology, Last 48 Hours 04/21/16 08:43 Gram Stain - Final Bronchial Washings 04/21/16 08:51 Gram Stain - Final Bronchial Washings - Clinical Findings Intake & Output: Intake & Output 04/20/16 04/21/16 04/21/16 23:59 07:59 15:59 Intake Total 300 / 300 350 / 350 Output Total 550 / 550 Balance 300 / 300 -550 / -550 350 / 350 Weight 78 kg - VTE Documentation of Mechanical Device: Intermittent pneumatic compression device Consult Discharge Plan - Plan Referrals: Iman Monae, [employer] MACHINE FEEDER [Primary Care Provider] -
[2016-04-21 17:34] LABS: APTT (LE Anticoag) 98 sec (32-48); Diluted Russell Viper Venom 71 sec (33-44); LE Coag APTT Mixing 75 sec (32-48); LE Dil. Russell Viper Mix 1:1 61 sec (33-44); PT (LE-Anticoag) 15.8 sec (12.0-15.5); Thrombin Time 16.3 sec (14.7-19.5)
[2016-04-21 17:38] LABS: ANA IgG by ELISA NONE DETECTED (None Detected); Myeloperoxidase Ab 1 AU/mL (0-19); Serine Protease-3 Antibody 0 AU/mL (0-19)
[2016-04-21 17:52] LABS: Homocysteine 4 umol/L (<=10)
[2016-04-21] MEDS: chlorproMAZINE 25 MG TABLET PO SCH (20:56)
[2016-04-22] MEDS: Ipratropium/Albuterol Neb 3 ML IH SCH ×7 (00:29→23:57)
[2016-04-22] MEDS: MethylPREDNISolone 40 MG/ML VIAL IVP SCH ×2 (01:05→06:33)
[2016-04-22 05:38] LABS: Basophils % 0.2 %; Eosinophils % 0.1 %; Hematocrit 33.5 % (35.3-44.9); Immature Granulocytes % 1.6 % (0-4); Lymphocytes # 0.8 K/mcL (0.6-4.6); Lymphocytes % 5.2 %; Mean Corpuscular HGB Conc 32.8 g/dL (31.6-35.5); Mean Corpuscular Hemoglobin 31.7 pg (28.0-33.3); Mean Corpuscular Volume 96.5 fL (83.0-100.0); Mean Platelet Volume 9.1 fL (9.4-12.4); Monocytes # 0.5 K/mcL (0.0-1.3); Monocytes % 2.8 %; Neutrophils # 14.3 K/mcL (1.6-8.9); Platelet Count 262 K/mcL (140-400); Red Blood Count 3.47 M/mcL (3.82-4.97); Red Cell Distribution Width 13.4 % (11.5-14.5); Segmented Neutrophils % 90.1 %
[2016-04-22 05:58] LABS: BUN/Creatinine Ratio 36 (6-26); Blood Urea Nitrogen 26 mg/dL (7-20); Calcium 9.2 mg/dL (8.6-10.8); Carbon Dioxide 28 mEq/L (19-29); Chloride 103 mEq/L (98-109); Glucose 132 mg/dL (70-99); Magnesium 2.1 mg/dL (1.6-2.6); Osmolality,Calculated 297 (280-300); Phosphorous 3.3 mg/dL (2.3-4.7); Potassium 3.9 mEq/L (3.5-4.5); Sodium 140 mEq/L (136-145); eGFR For African Americans > 60 (> 60); eGFR For Non-African Americans > 60 (> 60)
[2016-04-22] MEDS: *HR* Enoxaparin 40 MG/0.4 ML SYRINGE SQ SCH (06:34)
[2016-04-22] MEDS: Budesonide/Formoterol 160/4.5 MDI IH SCH ×4 (07:45→20:35)
[2016-04-22] MEDS: Insulin LISPRO 300 UNITS/3 ML VIAL SQ SCH ×3 (08:06→16:29)
[2016-04-22] MEDS: Furosemide 20 MG/2 ML VIAL IVP SCH (08:10)
[2016-04-22] MEDS: Famotidine 20 MG TABLET PO SCH ×2 (08:10→19:32)
[2016-04-22] MEDS: Gabapentin 300 MG CAPSULE PO SCH ×2 (08:11→19:30)
[2016-04-22] MEDS: Azithromycin 500 MG in D5% in Water 250 ML IVPB SCH (08:12)
[2016-04-22] MEDS: Nicotine 21 MG PATCH.TD24 TD SCH (08:13)
[2016-04-22] MEDS ORDERED: Acetaminophen/Butalbital/CaffeineTABLET PO PRN (09:29)
[2016-04-22] MEDS ORDERED: diazePAM 5 MG TABLET PO PRN (09:39)
[2016-04-22] MEDS ORDERED: *HR* Dextrose 50 % in Water (Syg) 50 ML SYRINGE IVP PRN (09:39)
[2016-04-22] MEDS ORDERED: Acetaminophen 325 MG TABLET PO PRN (09:39)
[2016-04-22] MEDS ORDERED: Mag Hydrox/Al Hydrox/Simeth 30 ML UDC PO PRN (09:39)
[2016-04-22] MEDS ORDERED: Naloxone 0.4 MG/ML INJ IVP PRN (09:39)
[2016-04-22] MEDS ORDERED: Dextrose Gel 15 GM PO PRN ×2 (09:39)
[2016-04-22] MEDS ORDERED: D5% in Water 1,000 ML IV PRN (09:39)
[2016-04-22] MEDS ORDERED: Albuterol 2.5 MG/3 ML NEBULIZER IH PRN (09:39)
[2016-04-22] MEDS ORDERED: *HR* EPINEPHrine 1 MG/10 ML SYRINGE INTRATRACH PRN (09:39)
--- NOTE | 2016-04-22 09:58 | Pulmonology Progress Note ---
<Milan Jarvis W - Last Filed: 04/22/16 10:15> Objective PUL Vital signs: Last Vital Signs Temp 97.5 F L 04/22/16 06:41 Pulse 88 04/22/16 09:00 Resp 20 04/22/16 09:00 BP 114/75 04/22/16 09:00 Pulse Ox 96 04/22/16 09:00 Results - Laboratory Findings CBC and BMP: 04/22/16 05:29 04/22/16 05:29 ABG ABG pH 7.40 pH Units (7.32-7.45) 04/21/16 06:00 ABG pCO2 50 mmHg (35-45) H 04/21/16 06:00 ABG pO2 66 mmHg (85-104) L 04/21/16 06:00 ABG O2 Saturation 93 % (95-98) L 04/21/16 06:00 PT/INR, D-dimer PT 13.0 Seconds (9.4-12.1) H 04/21/16 06:49 D-Dimer 1376 ng/mLFEU (0-500) H 04/18/16 13:57 Abnormal lab findings: Abnormal lab results WBC 15.9 K/mcL (4.3-11.1) H 04/22/16 05:29 RBC 3.47 M/mcL (3.82-4.97) L 04/22/16 05:29 Hgb 11.0 g/dL (11.5-15.4) L 04/22/16 05:29 Hct 33.5 % (35.3-44.9) L 04/22/16 05:29 MPV 9.1 fL (9.4-12.4) L 04/22/16 05:29 Neutrophils # 14.3 K/mcL (1.6-8.9) H 04/22/16 05:29 ESR 47 mm/hr (0-15) H 04/18/16 21:47 PT 13.0 Seconds (9.4-12.1) H 04/21/16 06:49 APTT 56.1 Seconds (26.0-36.0) H 04/18/16 13:57 Fibrinogen 658 mg/dL (169-393) H 04/19/16 06:14 D-Dimer 1376 ng/mLFEU (0-500) H 04/18/16 13:57 Plt Neutralization POSITIVE (Negative) A 04/19/16 06:14 Lupus Anticoag INR 15.8 sec (12.0-15.5) H 04/19/16 06:14 Lupus Anticoag aPTT 98 sec (32-48) H 04/19/16 06:14 LA PTT Mix Pt/Norm 1:1 75 sec (32-48) H 04/19/16 06:14 Dil Saurabh Viper Venom 71 sec (33-44) H 04/19/16 06:14 LA dRVVT Confirm POSITIVE ratio (Negative) A 04/19/16 06:14 dRVVT Mix 61 sec (33-44) H 04/19/16 06:14 Factor VII 78 % (80-181) L 04/19/16 06:14 ABG pCO2 50 mmHg (35-45) H 04/21/16 06:00 ABG pO2 66 mmHg (85-104) L 04/21/16 06:00 ABG HCO3 31.0 mEQ/L (21-27) H 04/21/16 06:00 ABG Total CO2 32.5 mEq/L (20-26) H 04/21/16 06:00 ABG O2 Saturation 93 % (95-98) L 04/21/16 06:00 ABG Base Excess 5.3 mEq/L (-2.0 to 3.0) H 04/21/16 06:00 VBG pCO2 38 mmHg (41-51) L 04/19/16 06:14 VBG pO2 125 mmHg (25-40) H 04/19/16 06:14 BUN 26 mg/dL (7-20) H 04/22/16 05:29 BUN/Creatinine Ratio 36 (6-26) H 04/22/16 05:29 Glucose 132 mg/dL (70-99) H 04/22/16 05:29 POC Glucose 176 (58-89) H 04/21/16 16:14 Ionized Calcium 1.10 mmol/L (1.15-1.35) L 04/22/16 05:29 AST 36 Units/L (5-34) H 04/19/16 06:14 Alkaline Phosphatase 219 Units/L (38-126) H 04/19/16 06:14 C-Reactive Protein 273 mg/L (Less than 5) H 04/18/16 21:47 Albumin 2.5 g/dL (3.5-5.0) L 04/19/16 06:14 Globulin 3.6 g/dL (2.4-3.5) H 04/19/16 06:14 Albumin/Globulin Ratio 0.7 (1.1-2.2) L 04/19/16 06:14 Ur Specific [place] > 1.030 (1.010-1.025) H 04/18/16 15:40 Urine Blood Trace (Negative) H 04/18/16 15:40 Ur Barbiturates Screen Positive ng/mL (Xpymtd=363) H 04/18/16 15:40 U Benzodiazepines Scrn Positive ng/mL (Wdiehg=319) H 04/18/16 15:40 - Microbiology Findings Microbiology Findings: Microbiology, Last 48 Hours 04/21/16 08:51 Acid Fast Stain - Final Bronchial Washings 04/21/16 08:43 Acid Fast Stain - Final Bronchial Washings 04/21/16 08:51 Gram Stain - Final Bronchial Washings 04/21/16 08:43 Gram Stain - Final Bronchial Washings - Clinical Findings Intake & Output: Intake & Output 04/21/16 04/22/16 04/22/16 23:59 07:59 15:59 Intake Total 220 / 220 0 / 0 Output Total 1300 / 1300 50 / 50 Balance -1080 / -1080 -50 / -50 Consult Discharge Plan - Plan Referrals: Iman Monae, INTERNET SALES CONSULTANT [Primary Care Provider] - - Attending Attestation I examined this patient and my medical decision-making was reviewed with the LAUNCH ENGINEER/PA/Advanced Practice Nurse/Resident Physician. I agree with the documented findings, disposition and treatment plan as described except to the extent set forth below. Impression 1. Acute Respiratory Failure 2. Diffuse GGOs concerning for ILD vs infection (felt less likely), less likely cardiogenic edema. no DAH. 3. Migraine 4. Tobacco Abuse. Plan: 1. negative fluid balance, wean Fio2 to keep o2 sat >88% start oral steroids ( wean from IV) 2. Cont Abx x 7 days. f/u bronch studies for infection. CTD w/u unremarkable at this point. Consult CTS based upon resulture for lung biopsy 3. Analgesia follows with Neuro 4. Toabacco abuse counseling. Nicotine replacement <Lester Casey - Last Filed: 04/22/16 11:45> Date of Encounter: 04/22/16 Time of Encounter: 09:58 Assessment and Plan (1) Acute and chronic respiratory failure with hypoxia Current Visit: Yes Status: Acute Improved. Likely in the setting of ILD. Continue bronchodilators, transitioned to by mouth steroids, continue antibiotics for a total of 7 days. Will use BiPAP as needed. This patient was discussed with the admitting hospitalist, , who accepted the patient for transfer to . (2) Abnormal CT scan, chest Current Visit: Yes Status: Acute Likely interstitial lung disease, etiology unknown at this time. Patient had bronchoscopy yesterday, results are pending. Patient will likely need an open lung biopsy for definitive diagnosis. We will continue with bronchodilators and steroids. (3) DVT prophylaxis Current Visit: Yes Status: Acute Lovenox 40 mg subcutaneous daily Subjective Principal diagnosis: Dyspnea Interval history: Patient seen and examined at bedside. Patient states she feels much improved today. She states her breathing is improved. She is able to get up at the bedside commode without significant respiratory issues. She does report a mild cough with scant production of clear sputum. She denies fever, chills, chest pain, hemoptysis. Objective PUL Vital signs: Last Vital Signs Temp 97.5 F L 04/22/16 06:41 Pulse 88 04/22/16 09:00 Resp 20 04/22/16 09:00 BP 114/75 04/22/16 09:00 Pulse Ox 96 04/22/16 09:00 General appearance: no acute distress ENT: oropharynx moist Effort: normal Auscultation: bilateral: diminished breath sounds, rales Cardiovascular: regular rate and rhythm Gastrointestinal: normoactive bowel sounds, soft, non-tender, non-distended Extremities: no cyanosis, no edema, no clubbing normal mental status, non-focal exam Results - Laboratory Findings CBC and BMP: 04/22/16 05:29 04/22/16 05:29 ABG ABG pH 7.40 pH Units (7.32-7.45) 04/21/16 06:00 ABG pCO2 50 mmHg (35-45) H 04/21/16 06:00 ABG pO2 66 mmHg (85-104) L 04/21/16 06:00 ABG O2 Saturation 93 % (95-98) L 04/21/16 06:00 PT/INR, D-dimer PT 13.0 Seconds (9.4-12.1) H 04/21/16 06:49 D-Dimer 1376 ng/mLFEU (0-500) H 04/18/16 13:57 Abnormal lab findings: Abnormal lab results WBC 15.9 K/mcL (4.3-11.1) H 04/22/16 05:29 RBC 3.47 M/mcL (3.82-4.97) L 04/22/16 05:29 Hgb 11.0 g/dL (11.5-15.4) L 04/22/16 05:29 Hct 33.5 % (35.3-44.9) L 04/22/16 05:29 MPV 9.1 fL (9.4-12.4) L 04/22/16 05:29 Neutrophils # 14.3 K/mcL (1.6-8.9) H 04/22/16 05:29 ESR 47 mm/hr (0-15) H 04/18/16 21:47 PT 13.0 Seconds (9.4-12.1) H 04/21/16 06:49 APTT 56.1 Seconds (26.0-36.0) H 04/18/16 13:57 Fibrinogen 658 mg/dL (169-393) H 04/19/16 06:14 D-Dimer 1376 ng/mLFEU (0-500) H 04/18/16 13:57 Plt Neutralization POSITIVE (Negative) A 04/19/16 06:14 Lupus Anticoag INR 15.8 sec (12.0-15.5) H 04/19/16 06:14 Lupus Anticoag aPTT 98 sec (32-48) H 04/19/16 06:14 LA PTT Mix Pt/Norm 1:1 75 sec (32-48) H 04/19/16 06:14 Dil Saurabh Viper Venom 71 sec (33-44) H 04/19/16 06:14 LA dRVVT Confirm POSITIVE ratio (Negative) A 04/19/16 06:14 dRVVT Mix 61 sec (33-44) H 04/19/16 06:14 Factor VII 78 % (80-181) L 04/19/16 06:14 ABG pCO2 50 mmHg (35-45) H 04/21/16 06:00 ABG pO2 66 mmHg (85-104) L 04/21/16 06:00 ABG HCO3 31.0 mEQ/L (21-27) H 04/21/16 06:00 ABG Total CO2 32.5 mEq/L (20-26) H 04/21/16 06:00 ABG O2 Saturation 93 % (95-98) L 04/21/16 06:00 ABG Base Excess 5.3 mEq/L (-2.0 to 3.0) H 04/21/16 06:00 VBG pCO2 38 mmHg (41-51) L 04/19/16 06:14 VBG pO2 125 mmHg (25-40) H 04/19/16 06:14 BUN 26 mg/dL (7-20) H 04/22/16 05:29 BUN/Creatinine Ratio 36 (6-26) H 04/22/16 05:29 Glucose 132 mg/dL (70-99) H 04/22/16 05:29 POC Glucose 176 (58-89) H 04/21/16 16:14 Ionized Calcium 1.10 mmol/L (1.15-1.35) L 04/22/16 05:29 AST 36 Units/L (5-34) H 04/19/16 06:14 Alkaline Phosphatase 219 Units/L (38-126) H 04/19/16 06:14 C-Reactive Protein 273 mg/L (Less than 5) H 04/18/16 21:47 Albumin 2.5 g/dL (3.5-5.0) L 04/19/16 06:14 Globulin 3.6 g/dL (2.4-3.5) H 04/19/16 06:14 Albumin/Globulin Ratio 0.7 (1.1-2.2) L 04/19/16 06:14 Ur Specific [place] > 1.030 (1.010-1.025) H 04/18/16 15:40 Urine Blood Trace (Negative) H 04/18/16 15:40 Ur Barbiturates Screen Positive ng/mL (Lsllts=415) H 04/18/16 15:40 U Benzodiazepines Scrn Positive ng/mL (Lshvvj=634) H 04/18/16 15:40 - Microbiology Findings Microbiology Findings: Microbiology, Last 48 Hours 12/25/16 08:51 Acid Fast Stain - Final Bronchial Washings 04/21/16 08:43 Acid Fast Stain - Final Bronchial Washings 04/21/16 08:51 Gram Stain - Final Bronchial Washings 04/21/16 08:43 Gram Stain - Final Bronchial Washings - Clinical Findings Intake & Output: Intake & Output 04/21/16 04/22/16 04/22/16 23:59 07:59 15:59 Intake Total 220 / 220 0 / 0 Output Total 1300 / 1300 50 / 50 Balance -1080 / -1080 -50 / -50 - VTE Documentation of Mechanical Device: Intermittent pneumatic compression device
[2016-04-22] MEDS: Acetaminophen/Butalbital/CaffeineTABLET PO PRN ×2 (11:01→17:12)
--- NOTE | 2016-04-22 11:42 | Electrocardiograph Report ---
Test Date: 2016-04-18 Pat Name: Angela Montoya Department: 104 Room: 2N03 Gender: F Software Architect: Silviano : 1960 Requested By: Emerson Lopez Order Number: [id number] Reading MD: Wellington Perez MD Measurements Intervals [place] Rate: 105 P: 37 WI: 137 QRS: 33 QRSD: 95 T: 49 QT: 359 QTc: 420 Interpretive Statements SINUS TACHYCARDIA POSSIBLE RIGHT VENTRICULAR CONDUCTION DELAY ST DEVIATION AND MODERATE T-WAVE ABNORMALITY, CONSIDER ANTEROLATERAL ISCHEMIA Electronically Signed On 04-22-16 11:40:23 EST by Wellington Perez MD
[2016-04-22] MEDS ORDERED: MethylPREDNISolone 40 MG/ML VIAL IVP SCH (12:00)
[2016-04-22] MEDS: *HR* Morphine 2 MG/ML SYRINGE IVP PRN ×5 (12:08→20:59)
[2016-04-22] MEDS: chlorproMAZINE 25 MG TABLET PO SCH (19:32)
[2016-04-23] MEDS: *HR* Morphine 2 MG/ML SYRINGE IVP PRN ×6 (03:06→22:22)
[2016-04-23] MEDS: Ipratropium/Albuterol Neb 3 ML IH SCH ×5 (04:30→20:33)
[2016-04-23] MEDS: *HR* Enoxaparin 40 MG/0.4 ML SYRINGE SQ SCH (05:42)
[2016-04-23] MEDS: Budesonide/Formoterol 160/4.5 MDI IH SCH ×2 (07:35→20:33)
[2016-04-23] MEDS ORDERED: Azithromycin 500 MG in D5% in Water 250 ML IVPB SCH (08:00)
[2016-04-23] MEDS: Insulin LISPRO 300 UNITS/3 ML VIAL SQ SCH ×3 (08:06→16:08)
[2016-04-23] MEDS: Gabapentin 300 MG CAPSULE PO SCH ×2 (08:09→19:51)
[2016-04-23] MEDS: Famotidine 20 MG TABLET PO SCH ×2 (08:09→19:51)
[2016-04-23] MEDS: predniSONE 20 MG TABLET PO SCH (08:09)
[2016-04-23] MEDS: Nicotine 21 MG PATCH.TD24 TD SCH (08:10)
[2016-04-23] MEDS: Acetaminophen/Butalbital/CaffeineTABLET PO PRN ×2 (08:17→15:17)
--- NOTE | 2016-04-23 16:14 | Internal Med Progress Note ---
Date of Encounter: 04/23/16 Time of Encounter: 10:40 - Assessment and plan (1) Acute and chronic respiratory failure with hypoxia Current Visit: Yes Status: Acute Assessment and plan: s/p bronchoscopy Findings noted tolerating oxygen Continue to wean PT eval (2) Atypical pneumonia Current Visit: Yes Status: Acute Assessment and plan: Continue IV antibiotics. Cef/Azithro day 5/7 BAL negative for AFB, positive for yeast, Cultures have been negative so far. (3) Interstitial pulmonary disease, unspecified Current Visit: Yes Status: Chronic Assessment and plan: s/p bronchoscopy Continue steroids, antibiotics, continue oxygen (4) Tobacco use disorder Current Visit: Yes Status: Chronic Assessment and plan: Cessation encouraged (5) Migraine Current Visit: Yes Status: Chronic Assessment and plan: Acute on chronic Continue pain meds, patient with multiple allergies, add NSAIDs with close monitoring of renal function Qualifiers: Migraine type: without aura Status migrainosus presence: without status migrainosus Intractability: not intractable Qualified Code(s): G43.009 - Migraine without aura, not intractable, without status migrainosus - Subjective Interval history: 55 Y/O F being managed for acute respiratory failure secondary to atypical pneumonia, possible ILD exacerbation, possible cardiogenic edema, Migraine headaches and tobacco abuse She is seen at bedside Sitting out of bed in chair, comfortable Complains of migraine headaches - Constitutional Vitals: Temp Pulse Resp BP Pulse Ox 98 F 95 16 99/73 98 04/23/16 15:43 04/23/16 15:43 04/23/16 15:43 04/23/16 15:43 04/23/16 15:43 General appearance: Present: cooperative, A&O X 3, pleasant, no acute distress, obese, answers questions appropriately - Head Head exam: Present: atraumatic - Eye Eye exam: Present: PERRL, conjuntiva pink, sclera anicteric - ENT ENT exam: Present: mucous membranes moist - Neck Neck exam general surgery: Present: normal inspection - Respiratory Additional comments: Inspiratory crackles - Cardiovascular Cardiovascular exam: Present: RRR, +S1, +S2 - GI/Abdominal GI/Abdominal exam: Present: normal bowel sounds, soft, no peritoneal signs. Absent: mass, tenderness - Extremities Exam Extremities exam: Absent: pedal edema - Neurological Exam Neurological exam: Present: alert, oriented X3, no focal deficits. Absent: pronater drift, facial droop, speech deficit - Skin Skin exam: Present: dry Internal Medicine: Result - Labs CBC & Chem 7: 04/22/16 05:29 04/22/16 05:29 - ABG Interpretation ABG results: ABG ABG pH 7.40 pH Units (7.32-7.45) 04/21/16 06:00 ABG pCO2 50 mmHg (35-45) H 04/21/16 06:00 ABG pO2 66 mmHg (85-104) L 04/21/16 06:00 ABG O2 Saturation 93 % (95-98) L 04/21/16 06:00 PT/INR, D-dimer PT 13.0 Seconds (9.4-12.1) H 04/21/16 06:49 D-Dimer 1376 ng/mLFEU (0-500) H 04/18/16 13:57 - VTE Documentation of Mechanical Device: Intermittent pneumatic compression device Consult Discharge Plan - Plan Referrals: Iman Monae CNP [Primary Care Provider] - 04/30/16 10:40 am
--- NOTE | 2016-04-23 17:17 | Pulmonology Progress Note ---
Date of Encounter: 04/23/16 Time of Encounter: 17:15 Assessment and Plan (1) Acute and chronic respiratory failure with hypoxia Current Visit: Yes Status: Acute Possible ILD Flare vs less likely acute infection Responding to steroids and ABx wean FIo2 to keep O2 sat >88% (2) Atypical pneumonia Current Visit: Yes Status: Acute Bronch cultures without organsism Does have b/l infiltrates that are more consistent with inflammatory process. Would stop Abx today (3) Interstitial pulmonary disease, unspecified Current Visit: Yes Status: Chronic B/l GGOS ?possible NSIP Bronch neutrophilic prednominant but no organsism identified. CT changes are chronic Spoke with patient at length that bronch is non diagnostic and next step would be lung biopsy vs steroid taper and repeat imaging. Patient would like consider biopsy would consult CTS for consideration. If patient continues to improve this could be done as outpatient (but would get CTS on board at this time) Subjective Principal diagnosis: Dyspnea Interval history: Headache has improved as has her breathing which is much less labored. O2 weaned down to 4L No significant cough Objective PUL Vital signs: Last Vital Signs Temp 98 F 04/23/16 15:43 Pulse 95 04/23/16 15:43 Resp 16 04/23/16 15:43 BP 99/73 04/23/16 15:43 Pulse Ox 98 04/23/16 15:43 General appearance: no acute distress Eyes: nonicteric ENT: oropharynx moist Auscultation: bilateral: wheezes (mid inspiratory wheeze b/l ) Cardiovascular: regular rate and rhythm Extremities: no edema normal mental status, non-focal exam mood appropriate Results - Laboratory Findings CBC and BMP: 04/22/16 05:29 04/22/16 05:29 ABG ABG pH 7.40 pH Units (7.32-7.45) 04/21/16 06:00 ABG pCO2 50 mmHg (35-45) H 04/21/16 06:00 ABG pO2 66 mmHg (85-104) L 04/21/16 06:00 ABG O2 Saturation 93 % (95-98) L 04/21/16 06:00 PT/INR, D-dimer PT 13.0 Seconds (9.4-12.1) H 04/21/16 06:49 D-Dimer 1376 ng/mLFEU (0-500) H 04/18/16 13:57 Abnormal lab findings: Abnormal lab results WBC 15.9 K/mcL (4.3-11.1) H 04/22/16 05:29 RBC 3.47 M/mcL (3.82-4.97) L 04/22/16 05:29 Hgb 11.0 g/dL (11.5-15.4) L 04/22/16 05:29 Hct 33.5 % (35.3-44.9) L 04/22/16 05:29 MPV 9.1 fL (9.4-12.4) L 04/22/16 05:29 Neutrophils # 14.3 K/mcL (1.6-8.9) H 04/22/16 05:29 ESR 47 mm/hr (0-15) H 04/18/16 21:47 PT 13.0 Seconds (9.4-12.1) H 04/21/16 06:49 APTT 56.1 Seconds (26.0-36.0) H 04/18/16 13:57 Fibrinogen 658 mg/dL (169-393) H 04/19/16 06:14 D-Dimer 1376 ng/mLFEU (0-500) H 04/18/16 13:57 Plt Neutralization POSITIVE (Negative) A 04/19/16 06:14 Lupus Anticoag INR 15.8 sec (12.0-15.5) H 04/19/16 06:14 Lupus Anticoag aPTT 98 sec (32-48) H 04/19/16 06:14 LA PTT Mix Pt/Norm 1:1 75 sec (32-48) H 04/19/16 06:14 Dil Saurabh Viper Venom 71 sec (33-44) H 04/19/16 06:14 LA dRVVT Confirm POSITIVE ratio (Negative) A 04/19/16 06:14 dRVVT Mix 61 sec (33-44) H 04/19/16 06:14 Factor VII 78 % (80-181) L 04/19/16 06:14 ABG pCO2 50 mmHg (35-45) H 04/21/16 06:00 ABG pO2 66 mmHg (85-104) L 04/21/16 06:00 ABG HCO3 31.0 mEQ/L (21-27) H 04/21/16 06:00 ABG Total CO2 32.5 mEq/L (20-26) H 04/21/16 06:00 ABG O2 Saturation 93 % (95-98) L 04/21/16 06:00 ABG Base Excess 5.3 mEq/L (-2.0 to 3.0) H 04/21/16 06:00 VBG pCO2 38 mmHg (41-51) L 04/19/16 06:14 VBG pO2 125 mmHg (25-40) H 04/19/16 06:14 BUN 26 mg/dL (7-20) H 04/22/16 05:29 BUN/Creatinine Ratio 36 (6-26) H 04/22/16 05:29 Glucose 132 mg/dL (70-99) H 04/22/16 05:29 POC Glucose 113 (58-89) H 04/23/16 11:48 Ionized Calcium 1.10 mmol/L (1.15-1.35) L 04/22/16 05:29 AST 36 Units/L (5-34) H 04/19/16 06:14 Alkaline Phosphatase 219 Units/L (38-126) H 04/19/16 06:14 C-Reactive Protein 273 mg/L (Less than 5) H 04/18/16 21:47 Albumin 2.5 g/dL (3.5-5.0) L 04/19/16 06:14 Globulin 3.6 g/dL (2.4-3.5) H 04/19/16 06:14 Albumin/Globulin Ratio 0.7 (1.1-2.2) L 04/19/16 06:14 Ur Specific [place] > 1.030 (1.010-1.025) H 04/18/16 15:40 Urine Blood Trace (Negative) H 04/18/16 15:40 Ur Barbiturates Screen Positive ng/mL (Ssusob=437) H 04/18/16 15:40 U Benzodiazepines Scrn Positive ng/mL (Fqpufi=103) H 04/18/16 15:40 - Microbiology Findings Microbiology Findings: Microbiology, Last 48 Hours 04/21/16 08:43 Gram Stain - Final Bronchial Washings Respiratory Culture - Preliminary Yeast Species 04/21/16 08:51 Gram Stain - Final Bronchial Washings Respiratory Culture - Preliminary Yeast Species 04/21/16 08:51 Acid Fast Stain - Final Bronchial Washings 04/21/16 08:43 Acid Fast Stain - Final Bronchial Washings - Clinical Findings Intake & Output: Intake & Output 04/23/16 04/23/16 04/23/16 07:59 15:59 23:59 Intake Total 700 / 700 250 / 250 Output Total 250 / 250 Balance -250 / -250 700 / 700 250 / 250 - VTE Documentation of Mechanical Device: Intermittent pneumatic compression device Consult Discharge Plan - Plan Referrals: Iman Monae CNP [Primary Care Provider] - 04/30/16 10:40 am
[2016-04-23] MEDS: chlorproMAZINE 25 MG TABLET PO SCH (19:50)
[2016-04-24] MEDS: Ipratropium/Albuterol Neb 3 ML IH SCH ×6 (00:15→21:45)
[2016-04-24] MEDS: *HR* Enoxaparin 40 MG/0.4 ML SYRINGE SQ SCH (05:55)
[2016-04-24] MEDS: Insulin LISPRO 300 UNITS/3 ML VIAL SQ SCH ×3 (08:01→17:36)
[2016-04-24] MEDS: Famotidine 20 MG TABLET PO SCH ×2 (08:02→21:24)
[2016-04-24] MEDS: predniSONE 20 MG TABLET PO SCH (08:02)
[2016-04-24] MEDS: Gabapentin 300 MG CAPSULE PO SCH ×2 (08:02→21:23)
[2016-04-24] MEDS: Budesonide/Formoterol 160/4.5 MDI IH SCH ×2 (08:11→21:45)
[2016-04-24] MEDS: *HR* Morphine 2 MG/ML SYRINGE IVP PRN ×5 (08:14→19:41)
[2016-04-24] MEDS: Nicotine 21 MG PATCH.TD24 TD SCH (08:14)
[2016-04-24 08:22] LABS: Basophils # 0.1 K/mcL (0.0-0.2); Basophils % 0.3 %; Eosinophils # 0.3 K/mcL (0.0-0.6); Eosinophils % 1.7 %; Hemoglobin 10.9 g/dL (11.5-15.4); Immature Granulocytes % 4.5 % (0-4); Lymphocytes # 2.9 K/mcL (0.6-4.6); Lymphocytes % 17.6 %; Mean Corpuscular HGB Conc 32.1 g/dL (31.6-35.5); Mean Corpuscular Hemoglobin 31.5 pg (28.0-33.3); Mean Corpuscular Volume 98.3 fL (83.0-100.0); Monocytes # 0.8 K/mcL (0.0-1.3); Neutrophils # 11.8 K/mcL (1.6-8.9); Platelet Count 264 K/mcL (140-400); Red Blood Count 3.46 M/mcL (3.82-4.97); Red Cell Distribution Width 13.4 % (11.5-14.5); Segmented Neutrophils % 70.9 %
[2016-04-24] MEDS: Acetaminophen/Butalbital/CaffeineTABLET PO PRN ×2 (08:23→21:24)
[2016-04-24] MEDS: *HR* Promethazine 25 MG/ML VIAL IVP PRN ×2 (08:27→21:33)
[2016-04-24 08:30] LABS: BUN/Creatinine Ratio 29 (6-26); Blood Urea Nitrogen 21 mg/dL (7-20); Calcium 9.1 mg/dL (8.6-10.8); Carbon Dioxide 32 mEq/L (19-29); Chloride 104 mEq/L (98-109); Glucose 81 mg/dL (70-99); Osmolality,Calculated 294 (280-300); Potassium 3.8 mEq/L (3.5-4.5); Sodium 141 mEq/L (136-145); eGFR For African Americans > 60 (> 60); eGFR For Non-African Americans > 60 (> 60)
--- NOTE | 2016-04-24 08:50 | Cardiothoracic Consult Note ---
Date of Encounter: 04/24/16 Time of Encounter: 08:47 Assessment and Plan (1) Atypical pneumonia Current Visit: Yes Status: Acute The assessment and plan as outlined above was discussed with the patient and/or family members who expressed understanding and agreement. All questions were answered. The patient has diffuse interstitial lung disease that is present throughout all lobes. Presently O2 saturation is 94 on 2 L by nasal prong. I did caution her to quit smoking. She is a candidate for open lung biopsy. I discussed this with her. The procedure, its risks benefits and alternatives were explained and she does wish to proceed. She also wishes to do it before the end of the year because of insurance reasons. Hopefully, we can schedule it for Friday. - History of Present Illness History of present illness: Ms. Montoya is a 55 year old female History of present illness. Patient is a 55-year-old female who is been having worsening shortness of breath for 6 months. She was not on oxygen at home prior to admission. She was admitted with a severe migraine headache. Chest x-ray and CT scan revealed diffuse bilateral interstitial lung disease. She is status post bronchoscopy. Past medical history is notable for migraine headaches. She has had a hysterectomy, cholecystectomy and hernia repair. Medications include Thorazine, Paxil, Valium and Naprosyn. She has numerous allergies. Social history she lives by herself in [place]. She smoked 1 pack of cigarettes per day until admission. Does not drink alcohol. Family history is positive for thyroid disease and heart failure. Review of systems is otherwise negative. Past Med Surg Social Fam HX - Past Medical History Medical history: migraine, other (hypotension) Psychiatric history: anxiety, bipolar, depression - Past Surgical History Surgical History: cholecystectomy, herniorrhaphy, hysterectomy - Social History Smoking Status: Current every day smoker Packs per day: 1 Smokeless Tobacco Status: No Alcohol use: none Drug use: none - Family History Father Living Status: Still Living Hx Family Cardiac Disorders: Yes Mother Family Member Ethnicity: Non- Living Status: Still Living Hx Family Cardiac Disorders: No Hx Family Respiratory Disorders: Yes (short of breath) Hx Family Cancer: No Hx Family GI Disorders: No Hx Family Endocrine Disorder: No Hx Family Neuromuscular Disorders: No Hx Family Neurologic Disorders: No Hx Family HEENT Disorders: No Hx Family Autoimmune Disorders: Yes (hyperthyroid) Grandfather Living Status: Hx Family Cardiac Disorders: Yes Medications and Allergies Paroxetine [Paxil] 60 mg PO HS 04/01/15 [History] Buspirone HCl [Buspar] 10 mg PO BID 09/12/15 [History] Diazepam [Valium] 10 mg PO TID 09/12/15 [History] Gabapentin [Neurontin] 600 mg PO BID 09/12/15 [History] PredniSONE 40 mg PO DAILY #10 tablet 10/12/15 [Rx] Butalb/Acetaminophen/Caffeine [Keaqhf-Ninhyfyt-Vcvx 50-325-40] 1 tab PO DAILY PRN 04/18/16 [History] Chlorpromazine HCl 300 mg PO HS 04/18/16 [History] Cyclobenzaprine HCl 5 mg PO TID PRN 04/18/16 [History] Trihexyphenidyl [Artane] 2 mg PO TID 04/18/16 [History] Allergies metoclopramide [From Reglan] Allergy (Mild, Verified 04/18/16 19:25) Itching tramadol Allergy (Mild, Verified 04/18/16 19:25) Itching amitriptyline Allergy (Verified 04/18/16 19:25) Itching Sulfa (Sulfonamide Antibiotics) Allergy (Verified 04/18/16 19:25) See Comments sulfamethoxazole [From Bactrim] Allergy (Verified 04/18/16 19:25) See Comments trimethoprim [From Bactrim] Allergy (Verified 04/18/16 19:25) See Comments blisters on hands and feet lorazepam [From Ativan] Adverse Reaction (Mild, Verified 04/18/16 19:25) Anxiety benztropine [From Cogentin] Adverse Reaction (Verified 04/18/16 19:25) See Comments patient states it causes sores on tongue ciprofloxacin [From Cipro] Adverse Reaction (Verified 04/18/16 19:25) See Comments BLISTERS TO HANDS AND FEET onabotulinumtoxinA [From Botox] Adverse Reaction (Verified 04/18/16 19:25) See Comments patient states it causes neck pain sumatriptan [From Imitrex] Adverse Reaction (Verified 04/18/16 19:25) Agitated topiramate [From Topamax] Adverse Reaction (Verified 04/18/16 19:25) See Comments patient states it makes her hyper All Systems Review: A 10-system review of systems was performed and is negative for pertinent findings except as documented above in the HPI. Physical Examination Vital Signs, Last 4 Hours Temp Pulse Resp BP Pulse Ox 04/24/16 08:15 16 108/93 97 04/24/16 08:12 16 108/93 97 04/24/16 07:35 98.3 F 94 17 108/63 98 Pupils are equal, round and reactive to light and accommodation. No oral lesions. Neck is supple. Trachea in the midline. No thyromegaly or carotid bruits. Lungs are clear to percussion and auscultation. Heart is in a regular rate and rhythm. No murmurs, gallops or rubs. Abdomen is benign. No tenderness, rebound or guarding. No hepatosplenomegaly or masses. Extremities without edema. 1+ pulses. Cranial nerves, motor and sensory intact. She is awake, alert and oriented 3. Results 04/24/16 01:15 04/24/16 01:15 Lab Results, Last 24 hours 04/24/16 04/24/16 01:15 01:15 WBC 16.7 H Hgb 10.9 L Hct 34.0 L Plt Count 264 Sodium 141 Potassium 3.8 Chloride 104 Carbon Dioxide 32 H BUN 21 H Creatinine 0.73 Glucose 81 Calcium 9.1 Consult Discharge Plan - Plan Referrals: Iman Monae CNP [Primary Care Provider] - 04/30/16 10:40 am
--- NOTE | 2016-04-24 13:51 | Internal Med Progress Note ---
Date of Encounter: 04/24/16 Time of Encounter: 10:00 - Assessment and plan (1) Acute and chronic respiratory failure with hypoxia Current Visit: Yes Status: Acute Assessment and plan: Possibly secondary to ILD flare she is s/p bronchoscopy with persistent leukocytosis, BAL growing Lesli Albicans On 2L oxygen by nasal cannula which is well tolerated Will continue same Will continue steroids Will continue ceftriaxone 10/02 Awaiting lung biopsy by cardiothoracic surgery (2) Atypical pneumonia Current Visit: Yes Status: Acute Assessment and plan: Suspected, less likely, Will Continue IV ceftriaxone to complete 7 days of therapy (3) Interstitial pulmonary disease, unspecified Current Visit: Yes Status: Chronic Assessment and plan: As in acute respiratory failure (4) Tobacco use disorder Current Visit: Yes Status: Chronic Assessment and plan: Cessation encouraged (5) Migraine Current Visit: Yes Status: Chronic Assessment and plan: Acute on chronic Continue pain meds, patient with multiple allergies, add NSAIDs with close monitoring of renal function Qualifiers: Migraine type: without aura Status migrainosus presence: without status migrainosus Intractability: not intractable Qualified Code(s): G43.009 - Migraine without aura, not intractable, without status migrainosus - Subjective Interval history: 55 Y/O F being managed for acute respiratory failure secondary to atypical pneumonia, possible ILD exacerbation, possible cardiogenic edema, Migraine headaches and tobacco abuse She is seen at bedside Sitting out of bed in chair, comfortable No new complains today She has been evaluated by PT and is for home PT on discharge Patient is s/p bronchoscopy with BAL which has been non-conclusive so far, and has been evaluated this morning by CTSU for open lung biopsy She is otherwise comfortable - Constitutional Vitals: Temp Pulse Resp BP Pulse Ox 98.0 F 96 18 96/50 97 04/24/16 11:47 04/24/16 13:12 04/24/16 11:47 04/24/16 11:47 04/24/16 13:12 General appearance: Present: cooperative, A&O X 3, pleasant, no acute distress, obese, answers questions appropriately - Head Head exam: Present: atraumatic, normocephalic - Eye Eye exam: Present: PERRL, conjuntiva pink, sclera anicteric Pupils: Present: PERRL - Neck Neck exam general surgery: Present: supple, trachea midline. Absent: lymphadenopathy - Respiratory Additional comments: Diffuse inspiratory crackles - Cardiovascular Cardiovascular exam: Present: RRR, +S1, +S2. Absent: diastolic murmur, gallop, rubs, systolic murmur - GI/Abdominal GI/Abdominal exam: Present: normal bowel sounds, soft, no peritoneal signs. Absent: distended, tenderness - Extremities Exam Extremities exam: Present: warm, radial pulses palpable and symetrical. Absent : calf tenderness, cyanotic, pedal edema - Neurological Exam Neurological exam: Present: CN II-XII intact, oriented X3, no focal deficits. Absent: pronater drift, facial droop, speech deficit - Skin Skin exam: Present: dry, intact Internal Medicine: Result - Labs CBC & Chem 7: 04/24/16 01:15 04/24/16 01:15 Labs: Short CBC 04/24/16 Range/Units 01:15 WBC 16.7 H (4.3-11.1) K/mcL Hgb 10.9 L (11.5-15.4) g/dL Hct 34.0 L (35.3-44.9) % Plt Count 264 (140-400) K/mcL Neutrophils # 11.8 H (1.6-8.9) K/mcL BMP 04/24/16 01:15 Sodium 141 Potassium 3.8 Chloride 104 Carbon Dioxide 32 H BUN 21 H Creatinine 0.73 Glucose 81 Calcium 9.1 - ABG Interpretation ABG results: ABG ABG pH 7.40 pH Units (7.32-7.45) 04/21/16 06:00 ABG pCO2 50 mmHg (35-45) H 04/21/16 06:00 ABG pO2 66 mmHg (85-104) L 04/21/16 06:00 ABG O2 Saturation 93 % (95-98) L 04/21/16 06:00 PT/INR, D-dimer PT 13.0 Seconds (9.4-12.1) H 04/21/16 06:49 D-Dimer 1376 ng/mLFEU (0-500) H 04/18/16 13:57 - Impressions Impressions Chest X-Ray 04/21/16 06:00 IMPRESSION: Stable cardiomegaly. Worsening bilateral interstitial and airspace opacities could reflect worsening pneumonia and/or edema. D/ /21/2016 07:28:28 Manny Gutiérrez MD / maggy Interpreting Provider: Manny Gutiérrez MD - VTE Documentation of Mechanical Device: Intermittent pneumatic compression device Consult Discharge Plan - Plan Referrals: Iman Monae, [employer] [Primary Care Provider] - 04/30/16 10:40 am
[2016-04-24 15:05] LABS: Influenza A PCR Body Fluid NOT DETECTED; Influenza B PCR Body Fluid NOT DETECTED; RSV PCR Body Fluid NOT DETECTED
[2016-04-24 15:05] LABS: Influenza A PCR Body Fluid NOT DETECTED; Influenza B PCR Body Fluid NOT DETECTED; RSV PCR Body Fluid NOT DETECTED
[2016-04-24] MEDS: chlorproMAZINE 25 MG TABLET PO SCH (21:23)
[2016-04-25] MEDS: Ipratropium/Albuterol Neb 3 ML IH SCH ×6 (00:57→21:31)
[2016-04-25 03:32] LABS: Basophils # 0.1 K/mcL (0.0-0.2); Basophils % 0.3 %; Eosinophils # 0.3 K/mcL (0.0-0.6); Eosinophils % 1.4 %; Hematocrit 30.4 % (35.3-44.9); Hemoglobin 9.9 g/dL (11.5-15.4); Immature Platelets 2.5 % (1.1-6.1); Lymphocytes # 2.2 K/mcL (0.6-4.6); Lymphocytes % 12.2 %; Mean Corpuscular HGB Conc 32.6 g/dL (31.6-35.5); Mean Corpuscular Hemoglobin 32.2 pg (28.0-33.3); Mean Platelet Volume 9.4 fL (9.4-12.4); Monocytes # 0.8 K/mcL (0.0-1.3); Monocytes % 4.4 %; Neutrophils # 13.7 K/mcL (1.6-8.9); Platelet Count 299 K/mcL (140-400); Red Blood Count 3.07 M/mcL (3.82-4.97); Red Cell Distribution Width 13.3 % (11.5-14.5); Segmented Neutrophils % 75.7 %
[2016-04-25 03:43] LABS: BUN/Creatinine Ratio 28 (6-26); Blood Urea Nitrogen 19 mg/dL (7-20); Calcium 8.5 mg/dL (8.6-10.8); Carbon Dioxide 32 mEq/L (19-29); Chloride 104 mEq/L (98-109); Glucose 86 mg/dL (70-99); Osmolality,Calculated 292 (280-300); Potassium 3.8 mEq/L (3.5-4.5); Sodium 140 mEq/L (136-145); eGFR For African Americans > 60 (> 60); eGFR For Non-African Americans > 60 (> 60)
[2016-04-25 03:55] LABS: Platelet Clumps Few (Not Present); Reactive Lymphocytes Present (Not Present); Toxic Granulation Present (Not Present)
[2016-04-25] MEDS: *HR* Morphine 2 MG/ML SYRINGE IVP PRN ×7 (05:09→23:03)
[2016-04-25] MEDS: *HR* Promethazine 25 MG/ML VIAL IVP PRN ×2 (05:09→16:33)
[2016-04-25] MEDS: *HR* Enoxaparin 40 MG/0.4 ML SYRINGE SQ SCH (05:09)
[2016-04-25] MEDS: Budesonide/Formoterol 160/4.5 MDI IH SCH ×2 (07:48→21:31)
[2016-04-25] MEDS: Insulin LISPRO 300 UNITS/3 ML VIAL SQ SCH ×3 (08:25→17:51)
[2016-04-25] MEDS: Nicotine 21 MG PATCH.TD24 TD SCH (08:44)
[2016-04-25] MEDS: predniSONE 20 MG TABLET PO SCH (08:46)
[2016-04-25] MEDS: Famotidine 20 MG TABLET PO SCH ×2 (08:46→20:09)
[2016-04-25] MEDS: Gabapentin 300 MG CAPSULE PO SCH ×2 (08:46→20:08)
--- NOTE | 2016-04-25 09:35 | Internal Med Progress Note ---
Date of Encounter: 04/25/16 Time of Encounter: 09:34 - Assessment and plan (1) Acute and chronic respiratory failure with hypoxia Current Visit: Yes Status: Acute Assessment and plan: Possibly secondary to ILD flare she is s/p bronchoscopy with persistent leukocytosis (possibly secondary to steroids), BAL growing Lesli Albicans On 2L oxygen by nasal cannula which is well tolerated Will continue same Will continue steroids Will continue ceftriaxone 11/01, discontinue after today Awaiting lung biopsy by cardiothoracic surgery (2) Atypical pneumonia Current Visit: Yes Status: Acute Assessment and plan: Suspected, less likely, Will Continue IV ceftriaxone to complete 7 days of therapy (3) Interstitial pulmonary disease, unspecified Current Visit: Yes Status: Chronic Assessment and plan: As in acute respiratory failure (4) Tobacco use disorder Current Visit: Yes Status: Chronic Assessment and plan: Cessation encouraged (5) Migraine Current Visit: Yes Status: Chronic Assessment and plan: Acute on chronic Continue pain meds, patient with multiple allergies, add NSAIDs with close monitoring of renal function Qualifiers: Migraine type: without aura Status migrainosus presence: without status migrainosus Intractability: not intractable Qualified Code(s): G43.009 - Migraine without aura, not intractable, without status migrainosus - Subjective Interval history: 55 Y/O F being managed for acute respiratory failure secondary to atypical pneumonia, possible ILD exacerbation, possible cardiogenic edema, Migraine headaches and tobacco abuse She is seen at bedside Sitting out of bed in chair, comfortable No new complains today She has been evaluated by PT and is for home PT on discharge Patient is s/p bronchoscopy with BAL which has been non-conclusive so far, and has been evaluated this morning by CTSU for open lung biopsy She is otherwise comfortable - Constitutional Vitals: Temp Pulse Resp BP Pulse Ox 98.8 F 108 16 94/59 98 04/25/16 07:14 04/25/16 08:30 04/25/16 07:14 04/25/16 07:14 04/25/16 08:30 General appearance: Present: cooperative, A&O X 3, pleasant, no acute distress, obese, answers questions appropriately - Head Head exam: Present: atraumatic, normocephalic - Eye Eye exam: Present: PERRL, conjuntiva pink, sclera anicteric Pupils: Present: PERRL - Neck Neck exam general surgery: Present: supple, trachea midline. Absent: lymphadenopathy - Respiratory Additional comments: Diffuse inspiratory rales bilaterally - Cardiovascular Cardiovascular exam: Present: RRR, +S1, +S2. Absent: diastolic murmur, gallop, rubs, systolic murmur - GI/Abdominal GI/Abdominal exam: Present: normal bowel sounds, soft, no peritoneal signs. Absent: distended, tenderness - Extremities Exam Extremities exam: Present: warm, radial pulses palpable and symetrical. Absent : calf tenderness, cyanotic, pedal edema - Neurological Exam Neurological exam: Present: CN II-XII intact, oriented X3, no focal deficits. Absent: pronater drift, facial droop, speech deficit - Skin Skin exam: Present: dry, intact Internal Medicine: Result - Labs CBC & Chem 7: 04/25/16 03:06 04/25/16 03:06 Labs: Short CBC 04/25/16 Range/Units 03:06 WBC 18.1 H (4.3-11.1) K/mcL Hgb 9.9 L (11.5-15.4) g/dL Hct 30.4 L (35.3-44.9) % Plt Count 299 (140-400) K/mcL Neutrophils # 13.7 H (1.6-8.9) K/mcL BMP 04/25/16 03:06 Sodium 140 Potassium 3.8 Chloride 104 Carbon Dioxide 32 H BUN 19 Creatinine 0.68 Glucose 86 Calcium 8.5 L - ABG Interpretation ABG results: ABG ABG pH 7.40 pH Units (7.32-7.45) 04/21/16 06:00 ABG pCO2 50 mmHg (35-45) H 04/21/16 06:00 ABG pO2 66 mmHg (85-104) L 04/21/16 06:00 ABG O2 Saturation 93 % (95-98) L 04/21/16 06:00 PT/INR, D-dimer PT 13.0 Seconds (9.4-12.1) H 04/21/16 06:49 D-Dimer 1376 ng/mLFEU (0-500) H 04/18/16 13:57 - VTE Documentation of Mechanical Device: Intermittent pneumatic compression device Consult Discharge Plan - Plan Referrals: Iman Monae, [employer] [Primary Care Provider] -
--- NOTE | 2016-04-25 09:45 | Cardiothoracic Progress Note ---
Date of Encounter: 04/25/16 Time of Encounter: 09:43 - Assessment and plan (1) Interstitial pulmonary disease, unspecified Current Visit: Yes Status: Chronic The patient has a six-month history of progressive shortness of breath and dyspnea on exertion. A chest CT performed during this hospitalization reveals bilateral interstitial changes. She has been recommended for open lung biopsy to provide tissue for definitive diagnosis. This procedure will be performed tomorrow. The assessment and plan as outlined above was discussed with the patient and/or family members who expressed understanding and agreement. All questions were answered. - Subjective Interval history: The patient is sitting in a chair at the bedside. She has no respiratory complaints. Vital Signs, Last 4 Hours Temp Pulse Resp BP Pulse Ox 04/25/16 08:30 108 98 04/25/16 07:14 98.8 F 83 16 94/59 95 Oxgyen Flow Rate Oxygen Flow Rate (LPM) [0820] 12 Oxygen Flow Rate (LPM) [0814] 12 Oxygen Flow Rate (LPM) [0809] 12 Oxygen Flow Rate (LPM) 2 Clinical Data, last 8 Hours Output, Urine Amount 550 Output, Urine Amount 400 Weight 04/23/16 04/24/16 04/25/16 23:59 23:59 23:59 Weight 78.6 kg 78.9 kg - Physical Examination General: Conversant, No Apparent Distress Neck: No JVD, Normal carotid pulses Cardiac: Reg Rate and Rhythm, Normal S1 and S2, No Murmur Lungs: Normal Breath Sounds, No Wheeze, Rales, Rhonchi Neuro: Alert and responsive, No focal deficits noted Vascular: Normal capillary refill Extremities: No Clubbing, No Cyanosis, No Edema - Labs 04/25/16 03:06 04/25/16 03:06 Lab Results, Last 24 hours 04/25/16 04/25/16 03:06 03:06 WBC 18.1 H Hgb 9.9 L Hct 30.4 L Plt Count 299 Sodium 140 Potassium 3.8 Chloride 104 Carbon Dioxide 32 H BUN 19 Creatinine 0.68 Glucose 86 Calcium 8.5 L - VTE Documentation of Mechanical Device: Intermittent pneumatic compression device Consult Discharge Plan - Plan Referrals: Iman Monae CNP [Primary Care Provider] - 04/30/16 10:40 am
[2016-04-25] MEDS: Acetaminophen/Butalbital/CaffeineTABLET PO PRN (12:48)
[2016-04-25] MEDS: Nystatin OINT 15 GM TUBE TP SCH ×3 (14:18→20:10)
[2016-04-25] MEDS: chlorproMAZINE 25 MG TABLET PO SCH (23:01)
[2016-04-26] MEDS: Ipratropium/Albuterol Neb 3 ML IH SCH ×6 (00:50→21:00)
[2016-04-26] MEDS: *HR* Enoxaparin 40 MG/0.4 ML SYRINGE SQ SCH (05:05)
[2016-04-26 05:15] LABS: Basophils # 0.1 K/mcL (0.0-0.2); Basophils % 0.3 %; Eosinophils # 0.2 K/mcL (0.0-0.6); Eosinophils % 1.3 %; Hematocrit 30.7 % (35.3-44.9); Hemoglobin 9.9 g/dL (11.5-15.4); Immature Granulocytes % 5.5 % (0-4); Immature Platelets 3.8 % (1.1-6.1); Lymphocytes # 2.3 K/mcL (0.6-4.6); Lymphocytes % 13.5 %; Mean Corpuscular HGB Conc 32.2 g/dL (31.6-35.5); Mean Corpuscular Hemoglobin 31.7 pg (28.0-33.3); Mean Corpuscular Volume 98.4 fL (83.0-100.0); Mean Platelet Volume 9.9 fL (9.4-12.4); Monocytes # 0.7 K/mcL (0.0-1.3); Monocytes % 4.1 %; Platelet Count 242 K/mcL (140-400); Red Blood Count 3.12 M/mcL (3.82-4.97); Red Cell Distribution Width 13.3 % (11.5-14.5); Segmented Neutrophils % 75.3 %
[2016-04-26 05:38] LABS: Platelet Estimate Normal (Normal)
[2016-04-26] MEDS ORDERED: *HR* Phenylephrine 10 MG/ML VIAL ONE (06:53)
[2016-04-26] MEDS ORDERED: *HR* Rocuronium Bromide 50 MG/5 ML VIAL ONE ×2 (06:53→08:49)
[2016-04-26] MEDS ORDERED: *HR* FentaNYL (PF) 250 MCG/5 ML VIAL ONE (06:55)
[2016-04-26] MEDS ORDERED: *HR* Propofol 200 MG/20 ML VIAL IVP ONE (06:55)
[2016-04-26] MEDS ORDERED: *HR* Midazolam HCl 5 MG/5 ML VIAL IVP ONE (06:55)
[2016-04-26] MEDS ORDERED: Lidocaine 2% Syringe 100 MG/5 ML ONE (06:56)
--- NOTE | 2016-04-26 07:07 | Anesthesia Evaluation PreOp ---
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 (Migraines, Anxiety and Bipolar disorder) Other Medical History: Denies Any Significant HX Anesthesia History: No Prior Anesthetic Complications, Past Anesthesia (CARMEN, lap zhanna, Hernia) : No Alcohol Use: none Drug use: none Medications and Allergies Paroxetine [Paxil] 60 mg PO HS 04/01/15 [History] Buspirone HCl [Buspar] 10 mg PO BID 09/12/15 [History] Diazepam [Valium] 10 mg PO TID 09/12/15 [History] Gabapentin [Neurontin] 600 mg PO BID 09/12/15 [History] PredniSONE 40 mg PO DAILY #10 tablet 10/12/15 [Rx] Butalb/Acetaminophen/Caffeine [Vkoxiq-Deimrwhe-Yagh 50-325-40] 1 tab PO DAILY PRN 04/18/16 [History] Chlorpromazine HCl 300 mg PO HS 04/18/16 [History] Cyclobenzaprine HCl 5 mg PO TID PRN 04/18/16 [History] Trihexyphenidyl [Artane] 2 mg PO TID 04/18/16 [History] Allergies metoclopramide [From Reglan] Allergy (Mild, Verified 04/18/16 19:25) Itching tramadol Allergy (Mild, Verified 04/18/16 19:25) Itching amitriptyline Allergy (Verified 04/18/16 19:25) Itching Sulfa (Sulfonamide Antibiotics) Allergy (Verified 04/18/16 19:25) See Comments sulfamethoxazole [From Bactrim] Allergy (Verified 04/18/16 19:25) See Comments trimethoprim [From Bactrim] Allergy (Verified 04/18/16 19:25) See Comments blisters on hands and feet lorazepam [From Ativan] Adverse Reaction (Mild, Verified 04/18/16 19:25) Anxiety benztropine [From Cogentin] Adverse Reaction (Verified 04/18/16 19:25) See Comments patient states it causes sores on tongue ciprofloxacin [From Cipro] Adverse Reaction (Verified 04/18/16 19:25) See Comments BLISTERS TO HANDS AND FEET onabotulinumtoxinA [From Botox] Adverse Reaction (Verified 04/18/16 19:25) See Comments patient states it causes neck pain sumatriptan [From Imitrex] Adverse Reaction (Verified 04/18/16 19:25) Agitated topiramate [From Topamax] Adverse Reaction (Verified 04/18/16 19:25) See Comments patient states it makes her hyper - Meds/Allergy Pre-op Review Medications Reviewed: Yes Allergies Reviewed: Yes Beta Blockers on Current Med List: No Anesthesia Results - Labs 04/26/16 04:10 04/25/16 03:06 - Imaging EKG: report reviewed Chest x-ray: report reviewed Additional studies: Echo: 60-65% no valvular disease or wall motion problems Anesthesia Exam Selected Entries 04/26/16 05:30 Temperature 98.8 F Respiratory Rate 18 Blood Pressure 96/58 Oxygen Flow Rate (LPM) 2 Height: 62in Weight: 167lbs NPO (# of Hours): 8 Pain Scale: 0 Pain Scale Used: Numeric (1 - 10) - HEENT Pupil (Motor): EOMI Mallampati: II Teeth: Normal Oral Opening: Greater than 3 - SENIOR ELECTRICAL ENGINEER LOC: Oriented SENIOR ELECTRICAL ENGINEER Motor: Normal RUE, Normal LUE, Normal RLE, Normal LLE, Normal Face SENIOR ELECTRICAL ENGINEER Sensory: Normal: RUE, LUE, RLE, LLE, Face - Cardiac Rhythm: Regular Murmur: None - Pulmonary Breath Sounds: bilateral Clear Respiratory Effort: Symmetrical Anesthesia Assess/Plan ASA Score: 3 Modified [place] Scale for Level of Consciousness: Cooperative, oriented, and tranquil Anesthetic Plan: General Monitoring Plan: Standard Monitors Recovery Plan: ICU (Discussed risks of GA, possible need for kelby and probability of requiring prolonged intubation after surgerywith ICU stay. Questions answered and agrees to proceed.)
[2016-04-26] MEDS ORDERED: Heparin 1,000 UNITS/500 mL NS 500 ML ONE (07:27)
[2016-04-26] MEDS ORDERED: Bupivacaine/EPI 1:200k 0.5%PF 30 ML VIAL ONE (07:46)
[2016-04-26] MEDS: Budesonide/Formoterol 160/4.5 MDI IH SCH ×2 (07:48→21:01)
[2016-04-26] MEDS ORDERED: *HR* Morphine 10 MG/ML VIAL ONE (08:53)
[2016-04-26] MEDS ORDERED: Ondansetron 4 MG/2 ML VIAL ONE (09:09)
[2016-04-26] MEDS ORDERED: Dexamethasone 4 MG/ML VIAL ONE (09:09)
[2016-04-26] MEDS ORDERED: *HR* OxyCODONE/APAP 5/325 TABLET PO PRN (09:44)
[2016-04-26] MEDS ORDERED: 0.9 % Sodium Chloride w KCl 20 MEQ/1,000 ML MLS IV SCH (09:45)
[2016-04-26] MEDS ORDERED: *HR* HYDROmorphone 20 MG/20 ML PCA IVC PRN (09:47)
--- NOTE | 2016-04-26 09:56 | Operative Note ---
Date of procedure: 04/26/16 Pre-op diagnosis: Interstitial lung disease. Post-op diagnosis: same Procedure: 1. Right posterior lateral thoracotomy. 2. Right lower lobe lung wedge biopsy. 3. Right middle lobe lung wedge biopsy. 4. Right upper lobe lung wedge biopsy. 5. Intercostal nerve block 5. Implants: None. Complications: None. Anesthesia: JOSIAH Surgeon: Ozzie Plaza Estimated blood loss (cc): 50 Specimen: Right lower lobe lung, right middle lobe lung, right upper lobe lung Condition: stable Disposition: ICU Procedure in Detail: INDICATIONS FOR OPERATION: The patient is a 35-year-old lady with a long history of tobacco abuse who complains of a 4-6 month history of progressive shortness of breath and dyspnea on exertion. On the morning of April 23, 2016, patient complained of severe shortness of breath and dyspnea on exertion. She was evaluated at [facility] emergency department and found to be severely hypoxic. The patient was treated with supplemental oxygen and a chest CT revealed a diffuse bilateral groundglass appearance of the lung parenchyma. She underwent fiberoptic bronchoscopy and biopsy however no pathology was identified. The patient has been recommended for open lung biopsy to obtain tissue for definitive diagnosis. FINDINGS AT OPERATION: The lung parenchyma appeared grossly normal; however, remained hyperinflated despite single lung ventilation. DESCRIPTION OF OPERATION: After obtaining informed operative consent from the patient, she was taken to the upper numerous as retrosternal ventricular anesthetic was induced. Appropriate monitoring lines were placed and a double-lumen endotracheal tube was inserted. The patient was then turned in the left lateral decubitus position , and her right lateral chest was prepped and draped in a sterile fashion. A standard posterior lateral thoracotomy incision was then made through the skin and subcutaneous tissue. The latissimus dorsi muscle group was divided and the serratus anterior muscle group was reflected medially. The fifth intercostal space was identified and the intercostal muscles divided. The ribs were then and a general exploration was performed. The lung parenchyma appeared grossly normal; however, remained hyperinflated despite single lung ventilation. Wedge biopsies of the right lower lobe, right middle lobe, and right upper lobe were taken using stapling devices. Two 32 Kisw[place]ili chest tubes were then placed, one anteriorly and one posteriorly. The ribs were reapproximated using #1 Vicryl suture. The serratus anterior muscle group, latissimus dorsi muscle group , subcutaneous tissue, and skin edges were reapproximated using running Vicryl sutures. Steri-Strips were then applied. The patient was transferred to the ICU in satisfactory postoperative condition. There were no intraoperative complications, and the instrument, needle, and sponge count were correct at end of operation.
[2016-04-26] MEDS: Insulin LISPRO 300 UNITS/3 ML VIAL SQ SCH ×3 (10:44→17:09)
[2016-04-26] MEDS: Famotidine 20 MG TABLET PO SCH ×2 (10:45→20:30)
[2016-04-26] MEDS: Nystatin OINT 15 GM TUBE TP SCH ×3 (10:45→17:04)
[2016-04-26] MEDS: predniSONE 20 MG TABLET PO SCH (10:45)
[2016-04-26] MEDS: Gabapentin 300 MG CAPSULE PO SCH ×2 (10:45→20:30)
--- NOTE | 2016-04-26 10:56 | Anesthesia Evaluation Post Op ---
Date of Encounter: 04/26/16 Time of Encounter: 10:54 - Vital Signs Vital Signs: Selected Entries 04/26/16 05:30 Temperature 98.8 F Respiratory Rate 18 Blood Pressure 96/58 Oxygen Flow Rate (LPM) 2 - Lungs Lungs: Clear Ascult./Percussion - Airway Airway: Non-obstructed - Cardiovascular Regular Rate - Mental Status Mental Status: Alert & Oriented, Answers Appropriately - Pain Pain Scale: 3 Pain Scale used: Numeric (1 - 10) - Nausea Vomiting Nausea Vomiting: Not Present - Hydration Hydration: NPO Notes: 04/26/16 10:55 Patient maintaining O2 sats. 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 No apparent anesthesia complications.
[2016-04-26] MEDS: Nicotine 21 MG PATCH.TD24 TD SCH (11:13)
[2016-04-26] MEDS: *HR* Promethazine 25 MG/ML VIAL IVP PRN (13:31)
[2016-04-26] MEDS: Ketorolac 15 MG/ML VIAL IVP SCH ×2 (13:31→20:12)
--- NOTE | 2016-04-26 15:20 | Internal Med Progress Note ---
Date of Encounter: 04/26/16 Time of Encounter: 12:10 - Assessment and plan (1) Acute and chronic respiratory failure with hypoxia Current Visit: Yes Status: Acute Assessment and plan: Possibly secondary to ILD flare she is s/p lung biopsy In ICU, will be managed by ICU till stable for transfer back to step down On 2L oxygen by nasal cannula Will continue same Will continue steroids (2) Atypical pneumonia Current Visit: Yes Status: Acute Assessment and plan: Suspected, less likely, completed 7 days of antibiotic therapy (3) Interstitial pulmonary disease, unspecified Current Visit: Yes Status: Chronic Assessment and plan: As in acute respiratory failure Follow biopsy report (4) Tobacco use disorder Current Visit: Yes Status: Chronic Assessment and plan: Cessation encouraged (5) Migraine Current Visit: Yes Status: Chronic Assessment and plan: Acute on chronic Continue pain meds Qualifiers: Migraine type: without aura Status migrainosus presence: without status migrainosus Intractability: not intractable Qualified Code(s): G43.009 - Migraine without aura, not intractable, without status migrainosus - Subjective Interval history: 55 Y/O F being managed for acute respiratory failure secondary to atypical pneumonia, possible ILD exacerbation, possible cardiogenic edema, Migraine headaches and tobacco abuse Patient is s/p bronchoscopy with BAL which has been non-conclusive so far, and has been evaluated this morning by CTSU for open lung biopsy This morning, she had open lung biopsy She is seen in ICU s/p L thoracotomy with RML and RLL wedge biopsy She has since had chest tubes insertion and is on MOVIE SHOT CAMERAMAN with dilaudid She is seen at bedside with family at the bedside She is drowsy but rousable, not in any form of distress - Constitutional Vitals: Temp Pulse Resp BP Pulse Ox 98.3 F 69 16 107/67 96 04/26/16 13:00 04/26/16 15:00 04/26/16 15:00 04/26/16 15:00 04/26/16 15:00 General appearance: Present: cooperative, A&O X 3, pleasant, no acute distress, obese, answers questions appropriately - Head Head exam: Present: atraumatic, normocephalic - Eye Eye exam: Present: PERRL, conjuntiva pink, sclera anicteric Pupils: Present: PERRL - ENT ENT exam: Present: mucous membranes moist - Neck Neck exam general surgery: Present: normal inspection - Respiratory Additional comments: Bilateral chest tubes draining sero-sanguinous fluid No respiratory distress Left subcutaneous emphysema Bilateral inspiratory crackles - Cardiovascular Cardiovascular exam: Present: RRR, +S1, +S2. Absent: diastolic murmur, gallop, rubs, systolic murmur - GI/Abdominal GI/Abdominal exam: Present: normal bowel sounds, soft, no peritoneal signs. Absent: distended, tenderness - Extremities Exam Extremities exam: Absent: pedal edema - Neurological Exam Neurological exam: Present: CN II-XII intact, oriented X3, no focal deficits. Absent: pronater drift, facial droop, speech deficit - Skin Skin exam: Present: dry, intact Internal Medicine: Result - Labs CBC & Chem 7: 04/26/16 04:10 04/25/16 03:06 Labs: Short CBC 04/26/16 Range/Units 04:10 WBC 17.2 H (4.3-11.1) K/mcL Hgb 9.9 L (11.5-15.4) g/dL Hct 30.7 L (35.3-44.9) % Plt Count 242 (140-400) K/mcL Neutrophils # 13.0 H (1.6-8.9) K/mcL - ABG Interpretation ABG results: ABG ABG pH 7.40 pH Units (7.32-7.45) 04/21/16 06:00 ABG pCO2 50 mmHg (35-45) H 04/21/16 06:00 ABG pO2 66 mmHg (85-104) L 04/21/16 06:00 ABG O2 Saturation 93 % (95-98) L 04/21/16 06:00 PT/INR, D-dimer PT 13.0 Seconds (9.4-12.1) H 04/21/16 06:49 D-Dimer 1376 ng/mLFEU (0-500) H 04/18/16 13:57 - Impressions Impressions Chest X-Ray 04/26/16 09:44 IMPRESSION: Persistent bilateral pulmonary infiltrates. There are two right-sided chest tubes. No pneumothorax. Subcutaneous emphysema of the right chest wall. D/ / 04/26/2016 11:01:10 Carrie Ricketts MD / lalita Interpreting Provider: Carrie Ricketts MD - VTE Documentation of Mechanical Device: Intermittent pneumatic compression device Consult Discharge Plan - Plan Referrals: Iman Monae, SUSY [Primary Care Provider] -
[2016-04-26] MEDS: ceFAZolin 2,000 MG in D5% in Water 100 ML IVPB SCH (17:02)
[2016-04-26] MEDS: chlorproMAZINE 25 MG TABLET PO SCH (20:29)
[2016-04-27] MEDS: Nystatin OINT 15 GM TUBE TP SCH ×4 (00:25→21:10)
[2016-04-27] MEDS: ceFAZolin 2,000 MG in D5% in Water 100 ML IVPB SCH (00:25)
[2016-04-27] MEDS: Ketorolac 15 MG/ML VIAL IVP SCH ×5 (00:28→23:54)
[2016-04-27 03:24] LABS: Basophils # 0.1 K/mcL (0.0-0.2); Basophils % 0.2 %; Eosinophils # 0.2 K/mcL (0.0-0.6); Eosinophils % 0.7 %; Hematocrit 33.6 % (35.3-44.9); Hemoglobin 10.7 g/dL (11.5-15.4); Lymphocytes % 8.8 %; Mean Corpuscular HGB Conc 31.8 g/dL (31.6-35.5); Mean Corpuscular Hemoglobin 31.6 pg (28.0-33.3); Mean Corpuscular Volume 99.1 fL (83.0-100.0); Mean Platelet Volume 9.6 fL (9.4-12.4); Monocytes # 1.3 K/mcL (0.0-1.3); Monocytes % 5.6 %; Neutrophils # 18.7 K/mcL (1.6-8.9); Platelet Count 224 K/mcL (140-400); Red Blood Count 3.39 M/mcL (3.82-4.97); Red Cell Distribution Width 13.5 % (11.5-14.5); Segmented Neutrophils % 81.7 %
[2016-04-27] MEDS: Ipratropium/Albuterol Neb 3 ML IH SCH ×8 (03:45→23:23)
[2016-04-27 04:53] LABS: BUN/Creatinine Ratio 25 (6-26); Blood Urea Nitrogen 19 mg/dL (7-20); Calcium 8.8 mg/dL (8.6-10.8); Carbon Dioxide 24 mEq/L (19-29); Chloride 103 mEq/L (98-109); Glucose 111 mg/dL (70-99); Osmolality,Calculated 285 (280-300); Potassium 4.7 mEq/L (3.5-4.5); Sodium 136 mEq/L (136-145); eGFR For African Americans > 60 (> 60); eGFR For Non-African Americans > 60 (> 60)
[2016-04-27] MEDS: *HR* Enoxaparin 40 MG/0.4 ML SYRINGE SQ SCH (05:52)
--- NOTE | 2016-04-27 07:42 | Cardiothoracic Progress Note ---
Date of Encounter: 04/27/16 Time of Encounter: 07:40 - Assessment and plan (1) Interstitial pulmonary disease, unspecified Current Visit: Yes Status: Chronic The patient is recovering well from her right thoracotomy and open lung biopsy 3. She remains in stable and has no respiratory distress. Patient will be transferred to the stepdown unit later today. The assessment and plan as outlined above was discussed with the patient and/or family members who expressed understanding and agreement. All questions were answered. - Subjective Procedure(s) Performed: POD #1 S/P Right thoracotomy with open lung biopsy 3 Interval history: The patient is lying comfortably in her hospital bed. She remains extubated and has no respiratory distress. She has no complaints. Vital Signs, Last 4 Hours Temp Pulse Resp BP Pulse Ox 04/27/16 06:00 98 14 143/86 95 04/27/16 05:00 96 14 105/90 93 L 04/27/16 04:00 98.2 F 93 16 109/96 92 L 04/27/16 03:45 16 94 L Oxgyen Flow Rate Oxygen Flow Rate (LPM) [0820] 12 Oxygen Flow Rate (LPM) [0814] 12 Oxygen Flow Rate (LPM) [0809] 12 Oxygen Flow Rate (LPM) 3 Clinical Data, last 8 Hours Output, Chest Tube Drainage 12 Amount [Right Lateral Chest #2 ] Output, Chest Tube Drainage 27 Amount [Right Lateral Chest #2 ] Output, Chest Tube Drainage 40 Amount [Right Lateral Chest #1 ] Output, Chest Tube Drainage 60 Amount [Right Lateral Chest #1 ] Output, Chest Tube Drainage 60 Amount [Right Lateral Chest #1 ] Weight 04/25/16 04/26/16 04/27/16 23:59 23:59 23:59 Weight 78.9 kg 77 kg 81.3 kg - Physical Examination General: Conversant, No Apparent Distress Neck: No JVD, Normal carotid pulses Cardiac: Reg Rate and Rhythm, Normal S1 and S2, No Murmur Incision: No signs of infection, Dry/intact dressing Chest tubes: Minimal drainage, Other (No air leak.) Lungs: Normal Breath Sounds, No Wheeze, Rales, Rhonchi Neuro: Alert and responsive, No focal deficits noted Vascular: Normal capillary refill Extremities: No Clubbing, No Cyanosis, No Edema - Labs 04/27/16 03:15 04/27/16 04:35 Lab Results, Last 24 hours 04/27/16 04/27/16 03:15 04:35 WBC 22.9 H Hgb 10.7 L Hct 33.6 L Plt Count 224 Sodium 136 Potassium 4.7 H Chloride 103 Carbon Dioxide 24 BUN 19 Creatinine 0.77 Glucose 111 H Calcium 8.8 - Imaging Chest Xray: image reviewed (No pneumothorax. Minimal atelectasis/infiltrates.) - VTE Documentation of Mechanical Device: Intermittent pneumatic compression device Consult Discharge Plan - Plan Referrals: Iman Monae, DRUM CLEANER [Primary Care Provider] -
--- NOTE | 2016-04-27 08:53 | Pulmonology Progress Note ---
Date of Encounter: 04/27/16 Time of Encounter: 08:53 Assessment and Plan (1) Acute and chronic respiratory failure with hypoxia Current Visit: Yes Status: Acute Possible ILD Flare v POD 1 s/p Right lung biopsy Doing well wean FIo2 to keep O2 sat >88% Incentive Spirometer Cont to wean steroids (2) Atypical pneumonia Current Visit: Yes Status: Acute Bronch cultures without organsism Does have b/l infiltrates that are more consistent with inflammatory process. ABx stopped Cont to wean steroids persistent leukocytosis ?steroid effect coupled with post -op status. no other evidence of sepsis cont to monitor (3) Interstitial pulmonary disease, unspecified Current Visit: Yes Status: Chronic B/l GGOS ?possible NSIP vs DIP Bronch neutrophilic prednominant but no organsism identified. CT changes are chronic >6months Smoking cessation f/u biopsy results Subjective Principal diagnosis: Dyspnea Interval history: went for Lung Bx yesterday. Post op spent in ICU did well Wide awake and has good O2 sat% on minimal O2 through NC. C/o some pain at chest tube insertion site otherwise feels fine. Objective PUL Vital signs: Last Vital Signs Temp 98.6 F 04/27/16 08:07 Pulse 100 04/27/16 07:57 Resp 12 04/27/16 07:00 BP 116/102 04/27/16 07:00 Pulse Ox 98 04/27/16 07:00 General appearance: no acute distress Auscultation: bilateral: diminished breath sounds Cardiovascular: regular rate and rhythm Gastrointestinal: normoactive bowel sounds, non-tender Extremities: no clubbing normal mental status, non-focal exam mood appropriate Results - Laboratory Findings CBC and BMP: 04/27/16 03:15 04/27/16 04:35 ABG ABG pH 7.40 pH Units (7.32-7.45) 04/21/16 06:00 ABG pCO2 50 mmHg (35-45) H 04/21/16 06:00 ABG pO2 66 mmHg (85-104) L 04/21/16 06:00 ABG O2 Saturation 93 % (95-98) L 04/21/16 06:00 PT/INR, D-dimer PT 13.0 Seconds (9.4-12.1) H 04/21/16 06:49 D-Dimer 1376 ng/mLFEU (0-500) H 04/18/16 13:57 Abnormal lab findings: Abnormal lab results WBC 22.9 K/mcL (4.3-11.1) H 04/27/16 03:15 RBC 3.39 M/mcL (3.82-4.97) L 04/27/16 03:15 Hgb 10.7 g/dL (11.5-15.4) L 04/27/16 03:15 Hct 33.6 % (35.3-44.9) L 04/27/16 03:15 Neutrophils # 18.7 K/mcL (1.6-8.9) H 04/27/16 03:15 Reactive Lymphocytes Present (Not Present) A 04/25/16 03:06 Toxic Granulation Present (Not Present) A 04/25/16 03:06 Clumped Platelets Few (Not Present) A 04/25/16 03:06 ESR 47 mm/hr (0-15) H 04/18/16 21:47 PT 13.0 Seconds (9.4-12.1) H 04/21/16 06:49 APTT 56.1 Seconds (26.0-36.0) H 04/18/16 13:57 Fibrinogen 658 mg/dL (169-393) H 04/19/16 06:14 D-Dimer 1376 ng/mLFEU (0-500) H 04/18/16 13:57 Plt Neutralization POSITIVE (Negative) A 04/19/16 06:14 Lupus Anticoag INR 15.8 sec (12.0-15.5) H 04/19/16 06:14 Lupus Anticoag aPTT 98 sec (32-48) H 04/19/16 06:14 LA PTT Mix Pt/Norm 1:1 75 sec (32-48) H 04/19/16 06:14 Dil Saurabh Viper Venom 71 sec (33-44) H 04/19/16 06:14 LA dRVVT Confirm POSITIVE ratio (Negative) A 04/19/16 06:14 dRVVT Mix 61 sec (33-44) H 04/19/16 06:14 Factor VII 78 % (80-181) L 04/19/16 06:14 ABG pCO2 50 mmHg (35-45) H 04/21/16 06:00 ABG pO2 66 mmHg (85-104) L 04/21/16 06:00 ABG HCO3 31.0 mEQ/L (21-27) H 04/21/16 06:00 ABG Total CO2 32.5 mEq/L (20-26) H 04/21/16 06:00 ABG O2 Saturation 93 % (95-98) L 04/21/16 06:00 ABG Base Excess 5.3 mEq/L (-2.0 to 3.0) H 04/21/16 06:00 VBG pCO2 38 mmHg (41-51) L 04/19/16 06:14 VBG pO2 125 mmHg (25-40) H 04/19/16 06:14 Potassium 4.7 mEq/L (3.5-4.5) H 04/27/16 04:35 Glucose 111 mg/dL (70-99) H 04/27/16 04:35 POC Glucose 125 (58-89) H 04/26/16 17:08 Ionized Calcium 1.10 mmol/L (1.15-1.35) L 04/22/16 05:29 AST 36 Units/L (5-34) H 04/19/16 06:14 Alkaline Phosphatase 219 Units/L (38-126) H 04/19/16 06:14 C-Reactive Protein 273 mg/L (Less than 5) H 04/18/16 21:47 Albumin 2.5 g/dL (3.5-5.0) L 04/19/16 06:14 Globulin 3.6 g/dL (2.4-3.5) H 04/19/16 06:14 Albumin/Globulin Ratio 0.7 (1.1-2.2) L 04/19/16 06:14 Ur Specific [place] > 1.030 (1.010-1.025) H 04/18/16 15:40 Urine Blood Trace (Negative) H 04/18/16 15:40 Ur Barbiturates Screen Positive ng/mL (Rloyth=648) H 04/18/16 15:40 U Benzodiazepines Scrn Positive ng/mL (Uvomlp=162) H 04/18/16 15:40 - Diagnostic Findings Chest x-ray: report reviewed - Clinical Findings Intake & Output: Intake & Output 04/26/16 04/27/16 04/27/16 23:59 07:59 15:59 Intake Total 307 / 307 0 / 0 Output Total 167 / 167 344 / 344 55 / 55 Balance 140 / 140 -344 / -344 -55 / -55 Weight 81.3 kg - VTE Documentation of Mechanical Device: Intermittent pneumatic compression device Consult Discharge Plan - Plan Referrals: Iman Monae CNP [Primary Care Provider] -
[2016-04-27] MEDS: Budesonide/Formoterol 160/4.5 MDI IH SCH ×2 (08:54→20:53)
[2016-04-27 09:20] LABS: Adenovirus Not Detected (Not Detect); Bordetella Pertussis Not Detected (Not Detect); Chlamydophila pneumoniae Not Detected (Not Detect); Coronavirus 229E Not Detected (Not Detect); Coronavirus HKU1 Not Detected (Not Detect); Coronavirus NL63 Not Detected (Not Detect); Coronavirus OC43 Not Detected (Not Detect); Human Metapneumovirus Not Detected (Not Detect); Human Rhinovirus/Enterovirus Not Detected (Not Detect); Influenza A Subtype 2009 H1 Not Detected (Not Detect); Influenza A Untypeable Not Detected (Not Detect); Influenza B Not Detected (Not Detect); Mycoplasma pneumoniae Not Detected (Not Detect); Parainfluenza Virus 1 Not Detected (Not Detect); Parainfluenza Virus 2 Not Detected (Not Detect); Parainfluenza Virus 3 Not Detected (Not Detect); Parainfluenza Virus 4 Not Detected (Not Detect); Respiratory Syncytial Virus Not Detected (Not Detect)
[2016-04-27] MEDS: Insulin LISPRO 300 UNITS/3 ML VIAL SQ SCH ×2 (10:07→17:37)
[2016-04-27] MEDS: Gabapentin 300 MG CAPSULE PO SCH ×2 (10:40→21:10)
[2016-04-27] MEDS: predniSONE 20 MG TABLET PO SCH (10:40)
[2016-04-27] MEDS: Famotidine 20 MG TABLET PO SCH ×2 (10:41→21:10)
[2016-04-27] MEDS: Nicotine 21 MG PATCH.TD24 TD SCH (10:41)
[2016-04-27] MEDS ORDERED: Dextrose Gel 15 GM PO PRN ×2 (11:49)
[2016-04-27] MEDS ORDERED: *HR* HYDROmorphone 20 MG/20 ML PCA IVC PRN (11:49)
[2016-04-27] MEDS ORDERED: Albuterol 2.5 MG/3 ML NEBULIZER IH PRN (11:49)
[2016-04-27] MEDS ORDERED: Acetaminophen/Butalbital/CaffeineTABLET PO PRN (11:49)
[2016-04-27] MEDS ORDERED: Acetaminophen 325 MG TABLET PO PRN (11:49)
[2016-04-27] MEDS ORDERED: *HR* Dextrose 50 % in Water (Syg) 50 ML SYRINGE IVP PRN (11:49)
[2016-04-27] MEDS ORDERED: D5% in Water 1,000 ML IV PRN (11:49)
[2016-04-27] MEDS ORDERED: Naloxone 0.4 MG/ML INJ IVP PRN (11:49)
[2016-04-27] MEDS ORDERED: Mag Hydrox/Al Hydrox/Simeth 30 ML UDC PO PRN (11:49)
[2016-04-27] MEDS: 0.9 % Sodium Chloride w KCl 20 MEQ/1,000 ML MLS IV SCH (12:28)
[2016-04-27] MEDS: chlorproMAZINE 25 MG TABLET PO SCH (21:10)
[2016-04-27] MEDS: *HR* OxyCODONE/APAP 5/325 TABLET PO PRN (22:46)
[2016-04-27] MEDS: diazePAM 5 MG TABLET PO PRN (22:49)
[2016-04-27] MEDS: *HR* Promethazine 25 MG/ML VIAL IVP PRN (23:54)
[2016-04-28] MEDS: Ipratropium/Albuterol Neb 3 ML IH SCH ×6 (04:04→23:57)
[2016-04-28] MEDS: *HR* Enoxaparin 40 MG/0.4 ML SYRINGE SQ SCH (07:19)
[2016-04-28] MEDS: Ketorolac 15 MG/ML VIAL IVP SCH ×2 (07:19→12:22)
[2016-04-28] MEDS ORDERED: Nicotine 21 MG PATCH.TD24 TD SCH (09:00)
[2016-04-28] MEDS ORDERED: predniSONE 20 MG TABLET PO SCH (09:00)
[2016-04-28] MEDS: Insulin LISPRO 300 UNITS/3 ML VIAL SQ SCH ×3 (09:35→16:58)
[2016-04-28] MEDS: Famotidine 20 MG TABLET PO SCH ×2 (09:36→20:35)
[2016-04-28] MEDS: Gabapentin 300 MG CAPSULE PO SCH ×2 (09:37→20:33)
[2016-04-28] MEDS: predniSONE 20 MG TABLET PO SCH (09:37)
[2016-04-28] MEDS: Nystatin OINT 15 GM TUBE TP SCH ×4 (09:38→20:35)
[2016-04-28] MEDS: Budesonide/Formoterol 160/4.5 MDI IH SCH ×2 (10:18→23:56)
--- NOTE | 2016-04-28 11:53 | Cardiothoracic Progress Note ---
Date of Encounter: 04/28/16 Time of Encounter: 11:51 - Assessment and plan (1) Interstitial pulmonary disease, unspecified Current Visit: Yes Status: Chronic The patient is recovering well from her right thoracotomy and open lung biopsy 3. She remains in stable and has no respiratory distress. The chest tubes were placed to waterseal. She has requested that the Dilaudid BRINE PLANT OPERATOR be stopped and that she receive analgesics intravenously when necessary. The assessment and plan as outlined above was discussed with the patient and/or family members who expressed understanding and agreement. All questions were answered. - Subjective Procedure(s) Performed: POD #2 S/P Right thoracotomy with open lung biopsy 3 Interval history: The patient is sitting comfortably in a chair at the bedside. She has no respiratory distress. She has no complaints. Vital Signs, Last 4 Hours Temp Pulse Resp BP Pulse Ox 04/28/16 11:39 98.0 F 94 106/79 100 04/28/16 10:21 18 96 04/28/16 10:18 89 97 04/28/16 09:18 84 97 Oxgyen Flow Rate Oxygen Flow Rate (LPM) [0820] 12 Oxygen Flow Rate (LPM) [0814] 12 Oxygen Flow Rate (LPM) [0809] 12 Oxygen Flow Rate (LPM) 3 Clinical Data, last 8 Hours Output, Chest Tube Drainage 30 Amount [Right Lateral Chest #2 ] Output, Chest Tube Drainage 60 Amount [Right Lateral Chest #1 ] Output, Urine Amount [Urethral 575 ([place])] Weight 04/26/16 04/27/16 04/28/16 23:59 23:59 23:59 Weight 77 kg 81.3 kg - Physical Examination General: Conversant, No Apparent Distress Neck: No JVD, Normal carotid pulses Cardiac: Reg Rate and Rhythm, Normal S1 and S2, No Murmur Incision: No signs of infection, Dry/intact dressing Chest tubes: Minimal drainage, Other (No air leak.) Lungs: Normal Breath Sounds, No Wheeze, Rales, Rhonchi Neuro: Alert and responsive, No focal deficits noted Vascular: Normal capillary refill Musculoskeletal: No Chest Wall Tenderness Extremities: No Clubbing, No Cyanosis, No Edema - Labs 04/27/16 03:15 04/27/16 04:35 - Imaging Chest Xray: image reviewed (No pneumothorax.) - VTE Documentation of Mechanical Device: Intermittent pneumatic compression device Consult Discharge Plan - Plan Referrals: Iman Monae, COMPUTER DISCOVERY TEACHER [Primary Care Provider] -
[2016-04-28] MEDS: *HR* OxyCODONE/APAP 5/325 TABLET PO PRN ×2 (12:23→17:57)
[2016-04-28] MEDS: diazePAM 5 MG TABLET PO PRN (13:43)
[2016-04-28] MEDS: 0.9 % Sodium Chloride w KCl 20 MEQ/1,000 ML MLS IV SCH (15:01)
--- NOTE | 2016-04-28 16:04 | Internal Med Progress Note ---
Date of Encounter: 04/28/16 Time of Encounter: 10:55 - Assessment and plan (1) Acute and chronic respiratory failure with hypoxia Current Visit: Yes Status: Acute Assessment and plan: Possibly secondary to ILD flare POD 2 lung biopsy Continue supplemental O2 (2) Atypical pneumonia Current Visit: Yes Status: Acute Assessment and plan: Suspected, less likely, completed 7 days of antibiotic therapy (3) Interstitial pulmonary disease, unspecified Current Visit: Yes Status: Chronic Assessment and plan: As in acute respiratory failure Follow biopsy report (4) Tobacco use disorder Current Visit: Yes Status: Chronic Assessment and plan: Cessation encouraged Taper NRT (5) Migraine Current Visit: Yes Status: Chronic Assessment and plan: Acute on chronic Continue pain meds Qualifiers: Migraine type: without aura Status migrainosus presence: without status migrainosus Intractability: not intractable Qualified Code(s): G43.009 - Migraine without aura, not intractable, without status migrainosus (6) Discharge planning issues Current Visit: Yes Status: Acute Assessment and plan: For home PT per last PT review prior to surgery Not yet stable for d/c - Subjective Interval history: 55 Y/O F being managed for acute respiratory failure secondary to atypical pneumonia, possible ILD exacerbation, possible cardiogenic edema, Migraine headaches and tobacco abuse Patient is s/p bronchoscopy with BAL which has been non-conclusive POD2 s/p lung biopsy She is seen at bedside with family at the bedside Has no new complains - Constitutional Vitals: Temp Pulse Resp BP Pulse Ox 98.0 F 103 18 106/79 100 04/28/16 11:39 04/28/16 13:45 04/28/16 10:21 04/28/16 11:39 04/28/16 12:16 General appearance: Present: cooperative, A&O X 3, pleasant, no acute distress, obese, answers questions appropriately - Head Head exam: Present: atraumatic, normocephalic - Eye Eye exam: Present: PERRL, conjuntiva pink, sclera anicteric Pupils: Present: PERRL - Neck Neck exam general surgery: Present: supple, trachea midline. Absent: lymphadenopathy - Respiratory Additional comments: Equal chest movement Bilateral sparse inspiratory crackles Left chest tube on posterior wall Dressing clean - Cardiovascular Cardiovascular exam: Present: RRR, +S1, +S2. Absent: diastolic murmur, gallop, rubs, systolic murmur - GI/Abdominal GI/Abdominal exam: Present: normal bowel sounds, soft, no peritoneal signs. Absent: distended, tenderness - Extremities Exam Extremities exam: Present: warm, radial pulses palpable and symetrical. Absent : calf tenderness, cyanotic, pedal edema - Neurological Exam Neurological exam: Present: CN II-XII intact, oriented X3, no focal deficits. Absent: pronater drift, facial droop, speech deficit - Skin Skin exam: Present: dry Internal Medicine: Result - Labs CBC & Chem 7: 04/27/16 03:15 04/27/16 04:35 - ABG Interpretation ABG results: ABG ABG pH 7.40 pH Units (7.32-7.45) 04/21/16 06:00 ABG pCO2 50 mmHg (35-45) H 04/21/16 06:00 ABG pO2 66 mmHg (85-104) L 04/21/16 06:00 ABG O2 Saturation 93 % (95-98) L 04/21/16 06:00 PT/INR, D-dimer PT 13.0 Seconds (9.4-12.1) H 04/21/16 06:49 D-Dimer 1376 ng/mLFEU (0-500) H 04/18/16 13:57 - Impressions Impressions Chest X-Ray 04/28/16 06:00 IMPRESSION: No change. D/ / Charles Plascencia MD / Charles Plascencia MD Interpreting Provider: Charles Plascencia MD - VTE Documentation of Mechanical Device: Intermittent pneumatic compression device Consult Discharge Plan - Plan Referrals: Iman Monae, RABIES INSPECTOR [Primary Care Provider] -
[2016-04-28] MEDS: *HR* Promethazine 25 MG/ML VIAL IVP PRN (16:12)
[2016-04-28] MEDS: chlorproMAZINE 25 MG TABLET PO SCH (20:33)
[2016-04-28] MEDS: *HR* HYDROmorphone (PF) 1 MG/ML SYRINGE IVP PRN (20:36)
[2016-04-29] MEDS: Ipratropium/Albuterol Neb 3 ML IH SCH ×6 (04:00→23:05)
[2016-04-29] MEDS: *HR* Enoxaparin 40 MG/0.4 ML SYRINGE SQ SCH (05:32)
[2016-04-29] MEDS: *HR* HYDROmorphone (PF) 1 MG/ML SYRINGE IVP PRN ×4 (06:13→21:43)
--- NOTE | 2016-04-29 07:32 | Cardiothoracic Progress Note ---
Date of Encounter: 04/29/16 Time of Encounter: 07:31 - Assessment and plan (1) Interstitial pulmonary disease, unspecified Current Visit: Yes Status: Chronic The patient is recovering well from her right thoracotomy and open lung biopsy 3. She remains in stable and has no respiratory distress. The chest tubes were removed. She has requested that the Dilaudid FORMULA MIXER be stopped and that she receive analgesics intravenously when necessary. The assessment and plan as outlined above was discussed with the patient and/or family members who expressed understanding and agreement. All questions were answered. - Subjective Procedure(s) Performed: POD #3 S/P Right thoracotomy with open lung biopsy 3 Interval history: The patient is a stinging comfortably in her hospital bed. She has no respiratory distress. She has no complaints. Vital Signs, Last 4 Hours Temp Pulse BP 04/29/16 06:00 80 111/72 04/29/16 05:16 97.7 F 04/29/16 05:04 79 04/29/16 04:00 79 111/72 Oxgyen Flow Rate Oxygen Flow Rate (LPM) [0820] 12 Oxygen Flow Rate (LPM) [0814] 12 Oxygen Flow Rate (LPM) [0809] 12 Oxygen Flow Rate (LPM) 1.5 Clinical Data, last 8 Hours Output, Chest Tube Drainage 0 Amount [Right Lateral Chest #2 ] Output, Chest Tube Drainage 50 Amount [Right Lateral Chest #1 ] Output, Urine Amount 0 Weight 04/27/16 04/28/16 04/29/16 23:59 23:59 23:59 Weight 81.3 kg 82.3 kg - Physical Examination General: Conversant, No Apparent Distress Neck: No JVD, Normal carotid pulses Cardiac: Reg Rate and Rhythm, Normal S1 and S2, No Murmur Incision: No signs of infection, Dry/intact dressing Chest tubes: Minimal drainage, Other (No airleak.) Lungs: Normal Breath Sounds, No Wheeze, Rales, Rhonchi Neuro: Alert and responsive, No focal deficits noted Vascular: Normal capillary refill Musculoskeletal: No Chest Wall Tenderness Extremities: No Clubbing, No Cyanosis, No Edema - Labs 04/27/16 03:15 04/27/16 04:35 - Imaging Chest Xray: image reviewed (No pneumothorax.) - VTE Documentation of Mechanical Device: Intermittent pneumatic compression device Consult Discharge Plan - Plan Referrals: Iman Monae, COMPENSATION ADMINISTRATOR [Primary Care Provider] -
[2016-04-29] MEDS: Gabapentin 300 MG CAPSULE PO SCH ×2 (07:53→21:41)
[2016-04-29] MEDS: Nicotine 14 MG PATCH.TD24 TD SCH (07:54)
[2016-04-29] MEDS: Famotidine 20 MG TABLET PO SCH ×2 (07:54→21:40)
[2016-04-29] MEDS: predniSONE 20 MG TABLET PO SCH (07:54)
[2016-04-29] MEDS: Nystatin OINT 15 GM TUBE TP SCH ×4 (07:59→23:27)
[2016-04-29] MEDS: *HR* OxyCODONE/APAP 5/325 TABLET PO PRN ×2 (08:17→16:44)
[2016-04-29 08:22] LABS: Basophils % 0.3 %; Eosinophils # 0.4 K/mcL (0.0-0.6); Eosinophils % 2.6 %; Hematocrit 28.4 % (35.3-44.9); Hemoglobin 8.9 g/dL (11.5-15.4); Immature Granulocytes % 3.8 % (0-4); Lymphocytes # 2.8 K/mcL (0.6-4.6); Lymphocytes % 18.5 %; Mean Corpuscular HGB Conc 31.3 g/dL (31.6-35.5); Mean Corpuscular Hemoglobin 31.6 pg (28.0-33.3); Mean Corpuscular Volume 100.7 fL (83.0-100.0); Mean Platelet Volume 10.6 fL (9.4-12.4); Monocytes # 0.9 K/mcL (0.0-1.3); Monocytes % 5.9 %; Neutrophils # 10.3 K/mcL (1.6-8.9); Platelet Count 144 K/mcL (140-400); Red Blood Count 2.82 M/mcL (3.82-4.97); Red Cell Distribution Width 13.1 % (11.5-14.5); Segmented Neutrophils % 68.9 %
[2016-04-29] MEDS: Budesonide/Formoterol 160/4.5 MDI IH SCH ×2 (08:29→20:45)
[2016-04-29 09:06] LABS: Platelet Estimate Normal (Normal)
[2016-04-29] MEDS: Insulin LISPRO 300 UNITS/3 ML VIAL SQ SCH ×3 (09:45→16:42)
[2016-04-29 09:56] LABS: BUN/Creatinine Ratio 21 (6-26); Blood Urea Nitrogen 14 mg/dL (7-20); Calcium 8.4 mg/dL (8.6-10.8); Carbon Dioxide 24 mEq/L (19-29); Chloride 110 mEq/L (98-109); Glucose 78 mg/dL (70-99); Osmolality,Calculated 297 (280-300); Potassium 3.8 mEq/L (3.5-4.5); Sodium 144 mEq/L (136-145); eGFR For African Americans > 60 (> 60); eGFR For Non-African Americans > 60 (> 60)
[2016-04-29] MEDS: *HR* Promethazine 25 MG/ML VIAL IVP PRN ×2 (11:48→23:54)
--- NOTE | 2016-04-29 16:22 | Physician Discharge Referral ---
Home Health/Hosp Referral Info Transfer to: Home Health Attending Provider: Malcolm Rodríguez Provider in Charge Post Discharge: PCP - Diagnosis (1) Acute and chronic respiratory failure with hypoxia Priority: Primary Status: Acute (2) Atypical pneumonia Priority: Secondary Status: Resolved (3) Interstitial pulmonary disease, unspecified Priority: Primary Status: Chronic (4) Tobacco use disorder Priority: Secondary Status: Chronic (5) Migraine Priority: Secondary Status: Chronic (6) Discharge planning issues Priority: Primary Status: Acute - Respiratory Orders Oxygen / L per min (2L/minute) Smoking Cessation: Smoking cessation has been advised. For more information, call the [place] Tobacco Quit Line at 2-926-WBSK-NOW. - Diet/Nutrition Diet/Nutrition Orders: Regular - Activity Activity Orders: Up ad dayna - Services Needed Following services are medically necessary services: Home Health Aide - Transfer Medications Home Medications: Paroxetine [Paxil] 60 mg PO HS 04/01/15 [History] Buspirone HCl [Buspar] 10 mg PO BID 09/12/15 [History] Diazepam [Valium] 10 mg PO TID 09/12/15 [History] Gabapentin [Neurontin] 600 mg PO BID 09/12/15 [History] PredniSONE 40 mg PO DAILY #10 tablet 10/12/15 [Rx] Butalb/Acetaminophen/Caffeine [Ugxmkj-Iyamerla-Qirt 50-325-40] 1 tab PO DAILY PRN 04/18/16 [History] Chlorpromazine HCl 300 mg PO HS 04/18/16 [History] Cyclobenzaprine HCl 5 mg PO TID PRN 04/18/16 [History] Trihexyphenidyl [Artane] 2 mg PO TID 04/18/16 [History] Allergies/Adverse Reactions: Allergies metoclopramide [From Reglan] Allergy (Mild, Verified 04/18/16 19:25) Itching tramadol Allergy (Mild, Verified 04/18/16 19:25) Itching amitriptyline Allergy (Verified 04/18/16 19:25) Itching Sulfa (Sulfonamide Antibiotics) Allergy (Verified 04/18/16 19:25) See Comments sulfamethoxazole [From Bactrim] Allergy (Verified 04/18/16 19:25) See Comments trimethoprim [From Bactrim] Allergy (Verified 04/18/16 19:25) See Comments blisters on hands and feet lorazepam [From Ativan] Adverse Reaction (Mild, Verified 04/18/16 19:25) Anxiety benztropine [From Cogentin] Adverse Reaction (Verified 04/18/16 19:25) See Comments patient states it causes sores on tongue ciprofloxacin [From Cipro] Adverse Reaction (Verified 04/18/16 19:25) See Comments BLISTERS TO HANDS AND FEET onabotulinumtoxinA [From Botox] Adverse Reaction (Verified 04/18/16 19:25) See Comments patient states it causes neck pain sumatriptan [From Imitrex] Adverse Reaction (Verified 04/18/16 19:25) Agitated topiramate [From Topamax] Adverse Reaction (Verified 04/18/16 19:25) See Comments patient states it makes her hyper Certification: Further, I certify that my clinical findings support that this patient is homebound (i.e. absences from home require considerable and taxing effort and are for medical reasons or congregational services or infrequently or short duration when for other reasons) because: Homebound Reason: Severity of cardiac or pulmonary status limits activity tolerance Attestation: My signature below is to certify that this patient is under my care and that I, or nurse practitioner, or a physician's assistant oceanographer working with me, has a face-to -face encounter with this patient.
--- NOTE | 2016-04-29 16:27 | Internal Med Progress Note ---
Date of Encounter: 04/29/16 Time of Encounter: 10:40 - Assessment and plan (1) Acute and chronic respiratory failure with hypoxia Current Visit: Yes Status: Acute Assessment and plan: Possibly secondary to ILD flare POD 3 lung biopsy Continue supplemental O2, home O2 at time of discharge (2) Atypical pneumonia Current Visit: Yes Status: Resolved Assessment and plan: Suspected, less likely, completed 7 days of antibiotic therapy (3) Interstitial pulmonary disease, unspecified Current Visit: Yes Status: Chronic Assessment and plan: As in acute respiratory failure Follow biopsy report (4) Tobacco use disorder Current Visit: Yes Status: Chronic Assessment and plan: Cessation encouraged Taper NRT (5) Migraine Current Visit: Yes Status: Chronic Assessment and plan: Acute on chronic Continue pain meds Qualifiers: Migraine type: without aura Status migrainosus presence: without status migrainosus Intractability: not intractable Qualified Code(s): G43.009 - Migraine without aura, not intractable, without status migrainosus (6) Discharge planning issues Current Visit: Yes Status: Acute Assessment and plan: For home PT per last PT review prior to surgery post chest tube removal For CXR a.m and d/c of no pneumothorax to follow up with Pulmonology - Subjective Interval history: 55 Y/O F being managed for acute respiratory failure secondary to atypical pneumonia, possible ILD exacerbation, possible cardiogenic edema, Migraine headaches and tobacco abuse Patient is s/p bronchoscopy with BAL which has been non-conclusive POD3 s/p lung biopsy 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 Seen, no new complains CTS has removed chest tubes today with post-procedure CXR no pneumothorax Patient also made requirement for home O2 She may be discharged a.m if cleared by CTS after a.m CXR - Constitutional Vitals: Temp Pulse Resp BP Pulse Ox 97.9 F 81 14 117/74 100 04/29/16 15:27 04/29/16 15:27 04/29/16 15:27 04/29/16 15:27 04/29/16 15:27 General appearance: Present: cooperative, A&O X 3, pleasant, no acute distress, obese, answers questions appropriately - Head Head exam: Present: atraumatic, normocephalic - Eye Eye exam: Present: PERRL, conjuntiva pink, sclera anicteric Pupils: Present: PERRL - Neck Neck exam general surgery: Present: supple, trachea midline. Absent: lymphadenopathy - Respiratory Additional comments: few scattered inspiratory crackles - Cardiovascular Cardiovascular exam: Present: RRR, +S1, +S2. Absent: diastolic murmur, gallop, rubs, systolic murmur - GI/Abdominal GI/Abdominal exam: Present: normal bowel sounds, soft, no peritoneal signs. Absent: distended, tenderness - Extremities Exam Extremities exam: Present: warm, radial pulses palpable and symetrical. Absent : calf tenderness, cyanotic, pedal edema - Neurological Exam Neurological exam: Present: CN II-XII intact, oriented X3, no focal deficits. Absent: pronater drift, facial droop, speech deficit - Skin Skin exam: Present: dry Internal Medicine: Result - Labs CBC & Chem 7: 04/29/16 07:58 04/29/16 07:58 Labs: Short CBC 04/29/16 Range/Units 07:58 WBC 14.9 H (4.3-11.1) K/mcL Hgb 8.9 L D (11.5-15.4) g/dL Hct 28.4 L (35.3-44.9) % Plt Count 144 (140-400) K/mcL Neutrophils # 10.3 H (1.6-8.9) K/mcL BMP 04/29/16 07:58 Sodium 144 D Potassium 3.8 Chloride 110 H Carbon Dioxide 24 BUN 14 Creatinine 0.66 Glucose 78 Calcium 8.4 L - ABG Interpretation ABG results: ABG ABG pH 7.40 pH Units (7.32-7.45) 04/21/16 06:00 ABG pCO2 50 mmHg (35-45) H 04/21/16 06:00 ABG pO2 66 mmHg (85-104) L 04/21/16 06:00 ABG O2 Saturation 93 % (95-98) L 04/21/16 06:00 PT/INR, D-dimer PT 13.0 Seconds (9.4-12.1) H 04/21/16 06:49 D-Dimer 1376 ng/mLFEU (0-500) H 04/18/16 13:57 - Impressions Impressions Chest X-Ray 04/29/16 06:00 IMPRESSION: No significant change. D/ / Asif Burden MD / Asif Burden MD Interpreting Provider: Asif Burden MD Chest X-Ray 04/29/16 08:21 IMPRESSION: Right thoracotomy tube removal without pneumothorax. D/ / 04/29/2016 08:45:25 Charles Plascencia MD / maggy Interpreting Provider: Charles Plascencia MD - VTE Documentation of Mechanical Device: Intermittent pneumatic compression device Consult Discharge Plan - Plan Referrals: Iman Monae CNP [Primary Care Provider] - 05/08/16 1:25 pm Skyler Menezes MD [Partnered Physician] - 05/23/16 2:00 pm
--- NOTE | 2016-04-29 16:39 | Pulmonology Progress Note ---
Date of Encounter: 04/29/16 Time of Encounter: 07:50 Assessment and Plan (1) Interstitial pulmonary disease, unspecified Current Visit: Yes Status: Chronic Called pathology, result still pending. (2) Acute respiratory failure with hypoxia Current Visit: Yes Status: Resolved Continue wean off FIO2 to keep SPO2 around 90% (3) Tobacco dependence Current Visit: No Status: Chronic Advised patient to quit smoking when discharged from hospital Subjective Principal diagnosis: Dyspnea Interval history: Patient is feeling better and oxygenation is much improved. Objective PUL Vital signs: Last Vital Signs Temp 97.9 F 04/29/16 15:27 Pulse 81 04/29/16 15:27 Resp 18 04/29/16 16:31 BP 117/74 04/29/16 15:27 Pulse Ox 99 04/29/16 16:31 General appearance: no acute distress Eyes: nonicteric ENT: oropharynx moist Mallampati (class): 3 Neck: supple, no lymphadenopathy Effort: normal Auscultation: bilateral: rhonchi Cardiovascular: regular rate and rhythm Gastrointestinal: normoactive bowel sounds Integumentary: normal Extremities: no cyanosis normal mental status, non-focal exam mood appropriate Results - Laboratory Findings CBC and BMP: 04/29/16 07:58 04/29/16 07:58 ABG ABG pH 7.40 pH Units (7.32-7.45) 04/21/16 06:00 ABG pCO2 50 mmHg (35-45) H 04/21/16 06:00 ABG pO2 66 mmHg (85-104) L 04/21/16 06:00 ABG O2 Saturation 93 % (95-98) L 04/21/16 06:00 PT/INR, D-dimer PT 13.0 Seconds (9.4-12.1) H 04/21/16 06:49 D-Dimer 1376 ng/mLFEU (0-500) H 04/18/16 13:57 Abnormal lab findings: Abnormal lab results WBC 14.9 K/mcL (4.3-11.1) H 04/29/16 07:58 RBC 2.82 M/mcL (3.82-4.97) L 04/29/16 07:58 Hgb 8.9 g/dL (11.5-15.4) L D 04/29/16 07:58 Hct 28.4 % (35.3-44.9) L 04/29/16 07:58 MCV 100.7 fL (83.0-100.0) H 04/29/16 07:58 MCHC 31.3 g/dL (31.6-35.5) L 04/29/16 07:58 Neutrophils # 10.3 K/mcL (1.6-8.9) H 04/29/16 07:58 Reactive Lymphocytes Present (Not Present) A 04/25/16 03:06 Toxic Granulation Present (Not Present) A 04/25/16 03:06 Clumped Platelets Few (Not Present) A 04/25/16 03:06 ESR 47 mm/hr (0-15) H 04/18/16 21:47 PT 13.0 Seconds (9.4-12.1) H 04/21/16 06:49 APTT 56.1 Seconds (26.0-36.0) H 04/18/16 13:57 Fibrinogen 658 mg/dL (169-393) H 04/19/16 06:14 D-Dimer 1376 ng/mLFEU (0-500) H 04/18/16 13:57 Plt Neutralization POSITIVE (Negative) A 04/19/16 06:14 Lupus Anticoag INR 15.8 sec (12.0-15.5) H 04/19/16 06:14 Lupus Anticoag aPTT 98 sec (32-48) H 04/19/16 06:14 LA PTT Mix Pt/Norm 1:1 75 sec (32-48) H 04/19/16 06:14 Dil Saurabh Viper Venom 71 sec (33-44) H 04/19/16 06:14 LA dRVVT Confirm POSITIVE ratio (Negative) A 04/19/16 06:14 dRVVT Mix 61 sec (33-44) H 04/19/16 06:14 Factor VII 78 % (80-181) L 04/19/16 06:14 ABG pCO2 50 mmHg (35-45) H 04/21/16 06:00 ABG pO2 66 mmHg (85-104) L 04/21/16 06:00 ABG HCO3 31.0 mEQ/L (21-27) H 04/21/16 06:00 ABG Total CO2 32.5 mEq/L (20-26) H 04/21/16 06:00 ABG O2 Saturation 93 % (95-98) L 04/21/16 06:00 ABG Base Excess 5.3 mEq/L (-2.0 to 3.0) H 04/21/16 06:00 VBG pCO2 38 mmHg (41-51) L 04/19/16 06:14 VBG pO2 125 mmHg (25-40) H 04/19/16 06:14 Chloride 110 mEq/L (98-109) H 04/29/16 07:58 POC Glucose 165 (58-89) H 04/29/16 11:48 Calcium 8.4 mg/dL (8.6-10.8) L 04/29/16 07:58 Ionized Calcium 1.10 mmol/L (1.15-1.35) L 04/22/16 05:29 AST 36 Units/L (5-34) H 04/19/16 06:14 Alkaline Phosphatase 219 Units/L (38-126) H 04/19/16 06:14 C-Reactive Protein 273 mg/L (Less than 5) H 04/18/16 21:47 Albumin 2.5 g/dL (3.5-5.0) L 04/19/16 06:14 Globulin 3.6 g/dL (2.4-3.5) H 04/19/16 06:14 Albumin/Globulin Ratio 0.7 (1.1-2.2) L 04/19/16 06:14 Ur Specific [place] > 1.030 (1.010-1.025) H 04/18/16 15:40 Urine Blood Trace (Negative) H 04/18/16 15:40 Ur Barbiturates Screen Positive ng/mL (Mwdetw=438) H 04/18/16 15:40 U Benzodiazepines Scrn Positive ng/mL (Nssiga=691) H 04/18/16 15:40 - Microbiology Findings Microbiology Findings: Microbiology, Last 48 Hours 04/21/16 08:43 Acid Fast Stain - Final Bronchial Washings 04/21/16 08:43 Fungal Culture - Preliminary Bronchial Washings Yeast Species 04/21/16 08:43 Gram Stain - Final Bronchial Washings Respiratory Culture - Final Lesli albicans 04/21/16 08:51 Acid Fast Stain - Final Bronchial Washings 04/21/16 08:51 Fungal Culture - Preliminary Bronchial Washings Yeast Species 04/21/16 08:51 Gram Stain - Final Bronchial Washings Respiratory Culture - Final Lesli albicans - Diagnostic Findings Chest x-ray: report reviewed, image reviewed - Clinical Findings Intake & Output: Intake & Output 04/29/16 04/29/16 04/29/16 07:59 15:59 23:59 Intake Total 0 / 0 360 / 360 Output Total 50 / 50 225 / 225 Balance -50 / -50 135 / 135 Weight 82.3 kg - VTE Documentation of Mechanical Device: Intermittent pneumatic compression device Consult Discharge Plan - Plan Referrals: Iman Monae CNP [Primary Care Provider] - 05/08/16 1:25 pm Skyler Menezes MD [Partnered Physician] - 05/23/16 2:00 pm
[2016-04-29] MEDS: chlorproMAZINE 25 MG TABLET PO SCH (21:42)
[2016-04-30] MEDS: Ipratropium/Albuterol Neb 3 ML IH SCH ×5 (03:33→21:27)
[2016-04-30] MEDS: *HR* OxyCODONE/APAP 5/325 TABLET PO PRN ×4 (05:20→21:36)
[2016-04-30 06:37] LABS: Basophils % 0.3 %; Eosinophils # 0.4 K/mcL (0.0-0.6); Eosinophils % 2.8 %; Hematocrit 26.9 % (35.3-44.9); Hemoglobin 8.7 g/dL (11.5-15.4); Immature Granulocytes % 4.5 % (0-4); Immature Platelets 7.2 % (1.1-6.1); Lymphocytes # 2.2 K/mcL (0.6-4.6); Lymphocytes % 17.2 %; Mean Corpuscular HGB Conc 32.3 g/dL (31.6-35.5); Mean Corpuscular Hemoglobin 31.6 pg (28.0-33.3); Mean Platelet Volume 10.7 fL (9.4-12.4); Monocytes # 0.9 K/mcL (0.0-1.3); Monocytes % 6.8 %; Neutrophils # 8.9 K/mcL (1.6-8.9); Platelet Count 193 K/mcL (140-400); Red Blood Count 2.75 M/mcL (3.82-4.97); Red Cell Distribution Width 13.5 % (11.5-14.5); Segmented Neutrophils % 68.4 %
[2016-04-30 06:45] LABS: Mean Corpuscular Volume 97.8 fL (83.0-100.0)
[2016-04-30 07:06] LABS: Platelet Estimate Normal (Normal)
[2016-04-30 07:07] LABS: Platelet Clumps Few (Not Present)
--- NOTE | 2016-04-30 07:28 | Cardiothoracic Progress Note ---
Date of Encounter: 04/30/16 Time of Encounter: 07:27 - Assessment and plan (1) Interstitial pulmonary disease, unspecified Current Visit: Yes Status: Chronic The patient is recovering well from her right thoracotomy and open lung biopsy 3. She remains in stable and has no respiratory distress. She may be discharged home with the hospitalist discretion. The assessment and plan as outlined above was discussed with the patient and/or family members who expressed understanding and agreement. All questions were answered. - Subjective Procedure(s) Performed: POD #4 S/P Right thoracotomy with open lung biopsy 3 Interval history: The patient is a stinging comfortably in her hospital bed. She has no respiratory distress. She has no complaints. Vital Signs, Last 4 Hours Resp Pulse Ox 04/30/16 03:34 17 92 L Oxgyen Flow Rate Oxygen Flow Rate (LPM) [0820] 12 Oxygen Flow Rate (LPM) [0814] 12 Oxygen Flow Rate (LPM) [0809] 12 Oxygen Flow Rate (LPM) 4 Clinical Data, last 8 Hours Output, Urine Amount 450 Weight 04/28/16 04/29/16 04/30/16 23:59 23:59 23:59 Weight 82.3 kg - Physical Examination General: Conversant, No Apparent Distress Neck: No JVD, Normal carotid pulses Cardiac: Reg Rate and Rhythm, Normal S1 and S2, No Murmur Incision: No signs of infection, Dry/intact dressing Lungs: Normal Breath Sounds, No Wheeze, Rales, Rhonchi Neuro: Alert and responsive, No focal deficits noted Vascular: Normal capillary refill Musculoskeletal: No Chest Wall Tenderness Extremities: No Clubbing, No Cyanosis, No Edema - Labs 04/30/16 06:07 04/29/16 07:58 Lab Results, Last 24 hours 04/29/16 04/29/16 04/30/16 07:58 07:58 06:07 WBC 14.9 H 13.0 H Hgb 8.9 L D 8.7 L Hct 28.4 L 26.9 L Plt Count 144 193 Sodium 144 D Potassium 3.8 Chloride 110 H Carbon Dioxide 24 BUN 14 Creatinine 0.66 Glucose 78 Calcium 8.4 L - Imaging Chest Xray: image reviewed (No pneumothorax.) - VTE Documentation of Mechanical Device: Intermittent pneumatic compression device Consult Discharge Plan - Plan Referrals: Iman Monae CNP [Primary Care Provider] - 05/08/16 1:25 pm Skyler Menezes MD [Partnered Physician] - 05/23/16 2:00 pm
[2016-04-30] MEDS: Insulin LISPRO 300 UNITS/3 ML VIAL SQ SCH ×3 (07:38→18:48)
[2016-04-30] MEDS: Budesonide/Formoterol 160/4.5 MDI IH SCH ×2 (07:44→21:27)
[2016-04-30] MEDS: *HR* Enoxaparin 40 MG/0.4 ML SYRINGE SQ SCH (07:44)
[2016-04-30] MEDS: Famotidine 20 MG TABLET PO SCH ×2 (07:45→20:16)
[2016-04-30] MEDS: Gabapentin 300 MG CAPSULE PO SCH ×2 (07:45→20:15)
[2016-04-30] MEDS: predniSONE 20 MG TABLET PO SCH (07:45)
[2016-04-30] MEDS: Nicotine 14 MG PATCH.TD24 TD SCH (07:46)
[2016-04-30] MEDS: Nystatin OINT 15 GM TUBE TP SCH ×4 (07:57→20:16)
[2016-04-30 07:58] LABS: BUN/Creatinine Ratio 23 (6-26); Calcium 8.5 mg/dL (8.6-10.8); Carbon Dioxide 23 mEq/L (19-29); Chloride 105 mEq/L (98-109); Glucose 89 mg/dL (70-99); Osmolality,Calculated 288 (280-300); Potassium 3.8 mEq/L (3.5-4.5); Sodium 139 mEq/L (136-145); eGFR For African Americans > 60 (> 60); eGFR For Non-African Americans > 60 (> 60)
[2016-04-30 07:59] LABS: Blood Urea Nitrogen 14 mg/dL (7-20)
--- NOTE | 2016-04-30 13:24 | Discharge Summary ---
<Deni Fam - Last Filed: 04/30/16 13:14> Date of Encounter: 04/30/16 Time of Encounter: 08:35 - Discharge Diagnosis (1) Acute and chronic respiratory failure with hypoxia Priority: Primary Status: Acute Comments: Due to ILD. Patient will require home oxygen (2) Interstitial pulmonary disease, unspecified Priority: Primary Status: Chronic Comments: Path from open biopsy pending (3) Discharge planning issues Priority: Secondary Status: Acute Comments: Patient feels she has not rate go home, states inadequate support at home, social work will discuss with her (4) Tobacco use disorder Priority: Secondary Status: Chronic Comments: Counseled on smoking cessation (5) Obesity (BMI 30-39.9) Priority: Secondary Status: Chronic (6) DVT prophylaxis Priority: Secondary Status: Acute - Discharge Medications Prescriptions: Albuterol Sulfate [Albuterol Inhaler] 2 puff IH Q4HR PRN #2 hfa.aer.ad PRN Reason: Difficulty breathing OxyCODONE/APAP 5/325 [Percocet 5/325 MG] 1 each PO Q4HR PRN #60 tablet PRN Reason: Mild Pain Budesonide/Formoterol 160/4.5 [Symbicort 160/4.5] 2 puff IH BIDR 30 Days Naproxen [Naprosyn] 500 mg PO BIDWM PRN 14 Days PRN Reason: Headache Nystatin OINT [Mycostatin] 1 appl TP QID 30 Days PredniSONE 10 mg PO DAILY #18 tablet Home Medications: Paroxetine [Paxil] 60 mg PO HS 04/01/15 [History] Buspirone HCl [Buspar] 10 mg PO BID 09/12/15 [History] Diazepam [Valium] 10 mg PO TID 09/12/15 [History] Gabapentin [Neurontin] 600 mg PO BID 09/12/15 [History] PredniSONE 40 mg PO DAILY #10 tablet 10/12/15 [Rx] Butalb/Acetaminophen/Caffeine [Vinglz-Adrpgbmt-Rehb 50-325-40] 1 tab PO DAILY PRN 04/18/16 [History] Chlorpromazine HCl 300 mg PO HS 04/18/16 [History] Cyclobenzaprine HCl 5 mg PO TID PRN 04/18/16 [History] Trihexyphenidyl [Artane] 2 mg PO TID 04/18/16 [History] Albuterol Sulfate [Albuterol Inhaler] 2 puff IH Q4HR PRN #2 hfa.aer.ad 04/30/16 [Rx] Budesonide/Formoterol 160/4.5 [Symbicort 160/4.5] 2 puff IH BIDR 30 Days [Rx] Naproxen [Naprosyn] 500 mg PO BIDWM PRN 14 Days 04/30/16 [Rx] Nystatin OINT [Mycostatin] 1 appl TP QID 30 Days 04/30/16 [Rx] OxyCODONE/APAP 5/325 [Percocet 5/325 MG] 1 each PO Q4HR PRN #60 tablet 04/30/16 [Rx] PredniSONE 10 mg PO DAILY #18 tablet 04/30/16 [Rx] Allergies/Adverse Reactions: Allergies metoclopramide [From Reglan] Allergy (Mild, Verified 04/18/16 19:25) Itching tramadol Allergy (Mild, Verified 04/18/16 19:25) Itching amitriptyline Allergy (Verified 04/18/16 19:25) Itching Sulfa (Sulfonamide Antibiotics) Allergy (Verified 04/18/16 19:25) See Comments sulfamethoxazole [From Bactrim] Allergy (Verified 04/18/16 19:25) See Comments trimethoprim [From Bactrim] Allergy (Verified 04/18/16 19:25) See Comments blisters on hands and feet lorazepam [From Ativan] Adverse Reaction (Mild, Verified 04/18/16 19:25) Anxiety benztropine [From Cogentin] Adverse Reaction (Verified 04/18/16 19:25) See Comments patient states it causes sores on tongue ciprofloxacin [From Cipro] Adverse Reaction (Verified 04/18/16 19:25) See Comments BLISTERS TO HANDS AND FEET onabotulinumtoxinA [From Botox] Adverse Reaction (Verified 04/18/16 19:25) See Comments patient states it causes neck pain sumatriptan [From Imitrex] Adverse Reaction (Verified 04/18/16 19:25) Agitated topiramate [From Topamax] Adverse Reaction (Verified 04/18/16 19:25) See Comments patient states it makes her hyper Date of admission: 04/18/16 21:26 Primary care physician: Iman Monae CNP Consults: 04/18/16 23:12 Consult to Band Saw Runner [CONS] Routine Reason for SW Consult: POSSIBLE HOME O2 NEEDS ON DC 04/20/16 07:38 Consult to Pulmonology [CONS] Routine Consulting Provider: Pulm Crit Care & Sleep [facility] Reason for Consult: Acute hypoxic resp failure; ? ILD per CT High O2 requirements Time Notified: 07:38 Call Completed: Yes 04/22/16 09:57 Consult to Invasive Line Access Team [CONS] Routine Reason for Consult: poor access Line Type: EPIV 04/23/16 16:16 PT [Consult to Physical Therapy] [CONS] Routine Comment: Evaluate, develop and implement POC 04/24/16 08:27 Consult to Thoracic Surgery [CONS] Routine Consulting Provider: Cardiothoracic Surgery [place] Reason for Consult: ILD possible biopsy Time Notified: 08:27 Call Completed: Yes Discharging clinician: Deni Fam Anticipated date of discharge: 04/30/16 - Patient Status Disposition: Home Health Service Condition: Fair Functional capacity at discharge: independent ambulation Overall status at discharge: patient is progressing back to baseline - Ambulatory Orders Ambulatory Orders: Misc. Orders Time Frame: 99 Months, Facility: [facility], Location: Elevator - Discharge Instructions Instructions: Chronic Obstructive Pulmonary Disease (DC), Pneumonia (DC) Follow Up With: Iamn Monae CNP [Primary Care Provider] - 05/07/16 10:40 am Skyler Menezes MD [Partnered Physician] - 05/23/16 2:00 pm Forms: ED Satisfaction Letter Additional Instructions: Take all medications as prescribed Follow-up with your PCP as scheduled, 05/08/16 at 1:25 PM to discuss labs results and further plan of care Follow-up with the cardiothoracic surgeon as scheduled, 05/23/16 at 2 PM Recommend smoking cessation, wean as tolerated and ask PCP for further assistance if needed - Diet and Activity Activity: increase activity as tolerated Diet: advance to your usual diet Interval History: Patient reports that she is doing well today overall, she states that she continues to have pain in her right flank where she had her thoracotomy. She states she has been breathing well on her current oxygen amount. She is concerned that there is no support at home. Hospital course: Ms. Montoya is a 55 year old female with prior medical history of migraines presented to the hospital on 04/18/16 with a migraine and URI like symptoms. Initial CTA showed no PE, was suspicious for pneumonia versus interstitial lung disease. She was treated with antibiotics, but improvement was limited. Pulmonology was consulted and performed a bronchoscopy with bronchioloalveolar lavage. She was continued on empiric antibiotics and received steroid therapy. Bronchioloalveolar lavage showed Lesli albicans. Cardiothoracic surgery was then consulted regarding the need for open lung biopsy. She underwent an open lung biopsy on 04/26/16, she tolerated procedure well, and pathology is still pending. She recovered well from the procedure, was transferred out of ICU, has been doing well on the hospital floor. She has remained stable 4 days status post right-sided thoracotomy and open lung biopsy and is safe for discharge pending insurance that she has reasonable resources at home for her home care. - Time Spent with Patient Total time spent providing and/or coordinating discharge services: Greater than 30 minutes - Constitutional Vitals: Temp Pulse Resp BP Pulse Ox 97.9 F 96 18 120/76 97 04/30/16 11:33 04/30/16 11:33 04/30/16 11:33 04/30/16 11:33 04/30/16 11:33 General appearance: Present: cooperative, A&O X 3, pleasant, no acute distress, obese, answers questions appropriately - Head Head exam: Present: atraumatic, normocephalic - Eye Eye exam: Present: PERRL, conjuntiva pink, sclera anicteric Pupils: Present: PERRL - Neck Neck exam general surgery: Present: supple, trachea midline - Respiratory Respiratory exam: Present: rales (Slight, diffuse). Absent: accessory muscle use, CTAB, rhonchi, wheezes - Cardiovascular Cardiovascular exam: Present: RRR, +S1, +S2. Absent: diastolic murmur, gallop, rubs, systolic murmur - GI/Abdominal GI/Abdominal exam: Present: normal bowel sounds, soft, no peritoneal signs. Absent: distended, tenderness - Extremities Exam Extremities exam: Present: warm, radial pulses palpable and symetrical. Absent : calf tenderness, cyanotic, pedal edema - Back Exam Additional comments: Large bandage in place on right flank, ecchymoses extending beyond dressing - Neurological Exam Neurological exam: Present: alert, oriented X3, no focal deficits. Absent: facial droop, speech deficit - Skin Skin exam: Present: dry, intact - VTE Documentation of Mechanical Device: Intermittent pneumatic compression device <[email or web address] R - Last Filed: 04/30/16 17:27> Date of admission: 04/18/16 21:26 Primary care physician: Iman Monae CNP Consults: 04/18/16 23:12 Consult to Band Saw Runner [CONS] Routine Reason for SW Consult: POSSIBLE HOME O2 NEEDS ON DC 04/20/16 07:38 Consult to Pulmonology [CONS] Routine Consulting Provider: Pulm Crit Care & Sleep [facility] Reason for Consult: Acute hypoxic resp failure; ? ILD per CT High O2 requirements Time Notified: 07:38 Call Completed: Yes 04/22/16 09:57 Consult to Invasive Line Access Team [CONS] Routine Reason for Consult: poor access Line Type: EPIV 04/23/16 16:16 PT [Consult to Physical Therapy] [CONS] Routine Comment: Evaluate, develop and implement POC 04/24/16 08:27 Consult to Thoracic Surgery [CONS] Routine Consulting Provider: Cardiothoracic Surgery Patty Reason for Consult: ILD possible biopsy Time Notified: 08:27 Call Completed: Yes Hospital course: Ms. Montoya is a 55 year old female - Time Spent with Patient Total time spent providing and/or coordinating discharge services: - Constitutional Vitals: Temp Pulse Resp BP Pulse Ox 97.9 F 96 18 120/76 94 L 04/30/16 11:33 04/30/16 11:33 04/30/16 15:35 04/30/16 11:33 04/30/16 16:43 - Attending Attestation The patient was seen and examined with the resident during rounds. I agree with the physical examination findings, assessment and plan as documented by the resident, Dr. Fam. 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
[2016-04-30] MEDS: chlorproMAZINE 25 MG TABLET PO SCH (20:15)
[2016-05-01] MEDS: Ipratropium/Albuterol Neb 3 ML IH SCH ×3 (00:27→08:26)
[2016-05-01] MEDS: *HR* OxyCODONE/APAP 5/325 TABLET PO PRN ×2 (02:19→06:17)
[2016-05-01] MEDS: *HR* Enoxaparin 40 MG/0.4 ML SYRINGE SQ SCH (06:17)
[2016-05-01] MEDS: Gabapentin 300 MG CAPSULE PO SCH (07:32)
[2016-05-01] MEDS: Nicotine 14 MG PATCH.TD24 TD SCH (07:32)
[2016-05-01] MEDS: Famotidine 20 MG TABLET PO SCH (07:32)
[2016-05-01] MEDS: predniSONE 20 MG TABLET PO SCH (07:32)
[2016-05-01 07:38] VITALS: BP 115/71
[2016-05-01] MEDS: Budesonide/Formoterol 160/4.5 MDI IH SCH (08:26)
[2016-05-01] MEDS ORDERED: *HR* OxyCODONE/APAP 7.5/325 TABLET PO PRN (09:27)
--- NOTE | 2016-05-01 09:35 | Internal Med Progress Note ---
<Deni Fam - Last Filed: 05/01/16 09:32> Date of Encounter: 05/01/16 Time of Encounter: 08:35 - Assessment and plan (1) Acute and chronic respiratory failure with hypoxia Status: Acute Assessment and plan: Likely secondary to ILD, improved as patient is no longer on supplemental oxygen POD 5 lung biopsy Patient safe for discharge with follow-up with her PCP and CT surgeon (2) Interstitial pulmonary disease, unspecified Status: Chronic Assessment and plan: As/PT 5 from open lung biopsy Continue steroids (with taper) Follow biopsy report (3) Discharge planning issues Status: Acute Assessment and plan: Patient states that with her pain her support at home is somewhat questionable, but otherwise feels okay Social work consulted to address DC planning issues Patient safer discharge otherwise (4) Tobacco use disorder Status: Chronic Assessment and plan: Cessation encouraged (5) Obesity (BMI 30-39.9) Status: Chronic (6) DVT prophylaxis Status: Acute Assessment and plan: Lovenox 40 mg subcutaneous daily - Subjective Interval history: Patient reports doing better today than yesterday. She states that her pain is improved, but still has tenderness when moving. She has no other chest/flank pain. He reports mild pain in site of thoracotomy with deep breathing. - Constitutional Vitals: Temp Pulse Resp BP Pulse Ox 98.5 F 88 16 115/71 93 L 05/01/16 04:17 05/01/16 07:35 05/01/16 07:35 05/01/16 07:35 05/01/16 07:35 General appearance: Present: cooperative, A&O X 3, pleasant, no acute distress, obese, answers questions appropriately - Head Head exam: Present: atraumatic, normocephalic - Eye Eye exam: Present: conjuntiva pink, sclera anicteric - Neck Neck exam general surgery: Present: supple, trachea midline - Respiratory Respiratory exam: Present: CTAB, rales (Mild bibasilar rales). Absent: accessory muscle use, rhonchi, wheezes - Cardiovascular Cardiovascular exam: Present: RRR, +S1, +S2. Absent: diastolic murmur, gallop, rubs, systolic murmur - GI/Abdominal GI/Abdominal exam: Present: normal bowel sounds, soft, no peritoneal signs. Absent: distended, tenderness - Extremities Exam Extremities exam: Present: warm, radial pulses palpable and symetrical. Absent : calf tenderness, cyanotic, pedal edema - Neurological Exam Neurological exam: Present: alert, oriented X3, no focal deficits. Absent: facial droop, speech deficit - Skin Skin exam: Present: dry, intact Additional comments: Ecchymoses extending beyond site of bandage from thoracotomy. Bandage appears dry Internal Medicine: Result - Labs CBC & Chem 7: 04/30/16 06:07 04/30/16 06:07 - ABG Interpretation ABG results: ABG ABG pH 7.40 pH Units (7.32-7.45) 04/21/16 06:00 ABG pCO2 50 mmHg (35-45) H 04/21/16 06:00 ABG pO2 66 mmHg (85-104) L 04/21/16 06:00 ABG O2 Saturation 93 % (95-98) L 04/21/16 06:00 PT/INR, D-dimer PT 13.0 Seconds (9.4-12.1) H 04/21/16 06:49 D-Dimer 1376 ng/mLFEU (0-500) H 04/18/16 13:57 - Impressions Impressions Chest X-Ray 04/26/16 09:44 IMPRESSION: Persistent bilateral pulmonary infiltrates. There are two right-sided chest tubes. No pneumothorax. Subcutaneous emphysema of the right chest wall. D/ / 04/26/2016 11:01:10 Carrie Ricketts MD / [email or web address] Interpreting Provider: Carrie Ricketts MD - VTE Documentation of Mechanical Device: Intermittent pneumatic compression device Consult Discharge Plan - Plan Instructions: Chronic Obstructive Pulmonary Disease (DC), Pneumonia (DC) Additional Instructions: Take all medications as prescribed Follow-up with your PCP as scheduled, 05/08/16 at 1:25 PM to discuss labs results and further plan of care Follow-up with the cardiothoracic surgeon as scheduled, 05/23/16 at 2 PM Recommend smoking cessation, wean as tolerated and ask PCP for further assistance if needed Referrals: Iman Monae CNP [Primary Care Provider] - 05/07/16 10:40 am Skyler Menezes MD [Partnered Physician] - 05/23/16 2:00 pm Prescriptions: Albuterol Sulfate [Albuterol Inhaler] 2 puff IH Q4HR PRN #2 hfa.aer.ad PRN Reason: Difficulty breathing OxyCODONE/APAP 5/325 [Percocet 5/325 MG] 1 each PO Q4HR PRN #60 tablet PRN Reason: Mild Pain Budesonide/Formoterol 160/4.5 [Symbicort 160/4.5] 2 puff IH BIDR 30 Days Naproxen [Naprosyn] 500 mg PO BIDWM PRN 14 Days PRN Reason: Headache Nystatin OINT [Mycostatin] 1 appl TP QID 30 Days Oxycodone HCl/Acetaminophen [Percocet 7.5-325 mg Tablet] 1 each PO Q6H PRN #60 tablet PRN Reason: Pain PredniSONE 10 mg PO DAILY #18 tablet <Faustino Rizzo - Last Filed: 05/01/16 17:49> - Constitutional Vitals: Temp Pulse Resp BP Pulse Ox 98.5 F 88 16 115/71 91 L 05/01/16 04:17 05/01/16 07:35 05/01/16 08:26 05/01/16 08:26 05/01/16 08:26 Internal Medicine: Result - Labs CBC & Chem 7: 04/30/16 06:07 04/30/16 06:07 - ABG Interpretation ABG results: ABG ABG pH 7.40 pH Units (7.32-7.45) 04/21/16 06:00 ABG pCO2 50 mmHg (35-45) H 04/21/16 06:00 ABG pO2 66 mmHg (85-104) L 04/21/16 06:00 ABG O2 Saturation 93 % (95-98) L 04/21/16 06:00 PT/INR, D-dimer PT 13.0 Seconds (9.4-12.1) H 04/21/16 06:49 D-Dimer 1376 ng/mLFEU (0-500) H 04/18/16 13:57 - Impressions Impressions Chest X-Ray 04/26/16 09:44 IMPRESSION: Persistent bilateral pulmonary infiltrates. There are two right-sided chest tubes. No pneumothorax. Subcutaneous emphysema of the right chest wall. D/ / 04/26/2016 11:01:10 Carrie Ricketts MD / [email or web address] Interpreting Provider: Carrie Ricketts MD Chest X-Ray 04/29/16 08:21 IMPRESSION: Right thoracotomy tube removal without pneumothorax. D/ / 04/29/2016 08:45:25 Charles Plascencia MD / [email or web address] Interpreting Provider: Charles Plascencia MD - Attending Attestation I examined this patient and my medical decision-making was reviewed with the QUALITY PROCESS AUDITOR/PA/Advanced Practice Nurse/Resident Physician. I agree with the documented findings, disposition and treatment plan as described except to the extent set forth below. She is stable for discharge, follow-up with her medical physician as outpatient.
--- NOTE | 2016-05-01 13:08 | Pulmonology Progress Note ---
Date of Encounter: 05/01/16 Time of Encounter: 07:25 Assessment and Plan (1) Interstitial pulmonary disease, unspecified Status: Chronic Discussed with pathologis, result still pending. Keep patient on current dose of Prednisone until she follow up as outpatient in 4-6 weeks Patient seen and examined with the RN, concern about her social situation, she lives by herself without help and concern about risk of fall. When primary team rounds, RN to address this with primary team before discharge home. (2) Acute respiratory failure with hypoxia Status: Resolved Patient oxygenation is better and 6 mwt before she leaves the hospital (3) Tobacco dependence Status: Chronic Advised patient to quit smoking when discharged from hospital Subjective Principal diagnosis: Dyspnea Interval history: Patient is feeling better and oxygenation is much improved, however she feels she has some dizziness. Objective PUL Vital signs: Last Vital Signs Temp 98.5 F 05/01/16 04:17 Pulse 88 05/01/16 07:35 Resp 16 05/01/16 07:35 BP 115/71 05/01/16 07:35 Pulse Ox 93 L 05/01/16 07:35 General appearance: no acute distress Eyes: nonicteric ENT: oropharynx moist Neck: supple Effort: normal Auscultation: left: clear, right: diminished breath sounds Cardiovascular: regular rate and rhythm Gastrointestinal: normoactive bowel sounds, soft Extremities: no cyanosis Gait: normal gait, normal posture normal mental status, non-focal exam mood appropriate Results - Laboratory Findings CBC and BMP: 04/30/16 06:07 04/30/16 06:07 ABG ABG pH 7.40 pH Units (7.32-7.45) 04/21/16 06:00 ABG pCO2 50 mmHg (35-45) H 04/21/16 06:00 ABG pO2 66 mmHg (85-104) L 04/21/16 06:00 ABG O2 Saturation 93 % (95-98) L 04/21/16 06:00 PT/INR, D-dimer PT 13.0 Seconds (9.4-12.1) H 04/21/16 06:49 D-Dimer 1376 ng/mLFEU (0-500) H 04/18/16 13:57 Abnormal lab findings: Abnormal lab results WBC 13.0 K/mcL (4.3-11.1) H 04/30/16 06:07 RBC 2.75 M/mcL (3.82-4.97) L 04/30/16 06:07 Hgb 8.7 g/dL (11.5-15.4) L 04/30/16 06:07 Hct 26.9 % (35.3-44.9) L 04/30/16 06:07 Immature Gran % 4.5 % (0-4) H 04/30/16 06:07 Reactive Lymphocytes Present (Not Present) A 04/25/16 03:06 Toxic Granulation Present (Not Present) A 04/25/16 03:06 Clumped Platelets Few (Not Present) A 04/30/16 06:07 Immature Plt Fraction 7.2 % (1.1-6.1) H 04/30/16 06:07 ESR 47 mm/hr (0-15) H 04/18/16 21:47 PT 13.0 Seconds (9.4-12.1) H 04/21/16 06:49 APTT 56.1 Seconds (26.0-36.0) H 04/18/16 13:57 Fibrinogen 658 mg/dL (169-393) H 04/19/16 06:14 D-Dimer 1376 ng/mLFEU (0-500) H 04/18/16 13:57 Plt Neutralization POSITIVE (Negative) A 04/19/16 06:14 Lupus Anticoag INR 15.8 sec (12.0-15.5) H 04/19/16 06:14 Lupus Anticoag aPTT 98 sec (32-48) H 04/19/16 06:14 LA PTT Mix Pt/Norm 1:1 75 sec (32-48) H 04/19/16 06:14 Dil Saurabh Viper Venom 71 sec (33-44) H 04/19/16 06:14 LA dRVVT Confirm POSITIVE ratio (Negative) A 04/19/16 06:14 dRVVT Mix 61 sec (33-44) H 04/19/16 06:14 Factor VII 78 % (80-181) L 04/19/16 06:14 ABG pCO2 50 mmHg (35-45) H 04/21/16 06:00 ABG pO2 66 mmHg (85-104) L 04/21/16 06:00 ABG HCO3 31.0 mEQ/L (21-27) H 04/21/16 06:00 ABG Total CO2 32.5 mEq/L (20-26) H 04/21/16 06:00 ABG O2 Saturation 93 % (95-98) L 04/21/16 06:00 ABG Base Excess 5.3 mEq/L (-2.0 to 3.0) H 04/21/16 06:00 VBG pCO2 38 mmHg (41-51) L 04/19/16 06:14 VBG pO2 125 mmHg (25-40) H 04/19/16 06:14 POC Glucose 114 (58-89) H 04/30/16 21:49 Calcium 8.5 mg/dL (8.6-10.8) L 04/30/16 06:07 Ionized Calcium 1.10 mmol/L (1.15-1.35) L 04/22/16 05:29 AST 36 Units/L (5-34) H 04/19/16 06:14 Alkaline Phosphatase 219 Units/L (38-126) H 04/19/16 06:14 C-Reactive Protein 273 mg/L (Less than 5) H 04/18/16 21:47 Albumin 2.5 g/dL (3.5-5.0) L 04/19/16 06:14 Globulin 3.6 g/dL (2.4-3.5) H 04/19/16 06:14 Albumin/Globulin Ratio 0.7 (1.1-2.2) L 04/19/16 06:14 Ur Specific [place] > 1.030 (1.010-1.025) H 04/18/16 15:40 Urine Blood Trace (Negative) H 04/18/16 15:40 Ur Barbiturates Screen Positive ng/mL (Vprygs=550) H 04/18/16 15:40 U Benzodiazepines Scrn Positive ng/mL (Phcezv=232) H 04/18/16 15:40 - Microbiology Findings Microbiology Findings: Microbiology, Last 48 Hours 04/27/16 06:00 Respiratory Virus Culture - Preliminary Nasopharyngeal - Clinical Findings Intake & Output: Intake & Output 04/30/16 05/01/16 05/01/16 23:59 07:59 15:59 Intake Total 480 / 480 400 / 400 180 / 180 Output Total 400 / 400 300 / 300 Balance 80 / 80 100 / 100 180 / 180 Weight 82.9 kg - VTE Documentation of Mechanical Device: Intermittent pneumatic compression device Consult Discharge Plan - Plan Instructions: Chronic Obstructive Pulmonary Disease (DC), Pneumonia (DC) Additional Instructions: Take all medications as prescribed Follow-up with your PCP as scheduled, 05/08/16 at 1:25 PM to discuss labs results and further plan of care Follow-up with the cardiothoracic surgeon as scheduled, 05/23/16 at 2 PM Recommend smoking cessation, wean as tolerated and ask PCP for further assistance if needed Referrals: Iman Monae CNP [Primary Care Provider] - 05/07/16 10:40 am Skyler Menezes MD [Partnered Physician] - 05/23/16 2:00 pm Prescriptions: Albuterol Sulfate [Albuterol Inhaler] 2 puff IH Q4HR PRN #2 hfa.aer.ad PRN Reason: Difficulty breathing OxyCODONE/APAP 5/325 [Percocet 5/325 MG] 1 each PO Q4HR PRN #60 tablet PRN Reason: Mild Pain Budesonide/Formoterol 160/4.5 [Symbicort 160/4.5] 2 puff IH BIDR 30 Days Naproxen [Naprosyn] 500 mg PO BIDWM PRN 14 Days PRN Reason: Headache Nystatin OINT [Mycostatin] 1 appl TP QID 30 Days Oxycodone HCl/Acetaminophen [Percocet 7.5-325 mg Tablet] 1 each PO Q6H PRN #60 tablet PRN Reason: Pain PredniSONE 10 mg PO DAILY #18 tablet
== END 2016-05-01 11:01 | disposition home health service (06) | DRG 163 ==
LOC: EMEROO 13:24 → 2ANU 13:24 → SUATTDRO 21:26 → ICNU 04-20 11:04 → 2NNU 04-22 11:03 → ICNU 04-26 09:16 → 2NNU 04-27 12:37
PROVIDERS: ADMIT Internal Medicine; ATTEND Internal Medicine

== ENCOUNTER 2016-05-29 08:10 | Observation (INO) ==
[2016-05-29] MEDS ORDERED: Furosemide 40 MG/4 ML VIAL IVP ONE (08:21)
--- NOTE | 2016-05-29 09:22 | Emergency Department Note ---
Disposition Clinical Impression: Dyspnea Disposition: Still a Patient Time of Disposition: 11:53 General Adult HPI - General Stated complaint: BLE EDEMA Time Seen by Provider: 05/29/16 08:15 Source: patient Mode of arrival: EMS Limitations: no limitations Nursing Notes Reviewed: Yes Vital Signs Reviewed: Yes - History of Present Illness HPI Narrative: She presents to the emergency department by EMS squad from home. She is complaining of bilateral ankle edema. She had a right thoracotomy about a month ago for lung biopsy and states that she has had some pain from that. Her speech does seem to be somewhat slurred and she states that she has not had any pain medicine since approximately 18 hours ago but pupils are pinpoint in mildly reactive at this time. Right incision chest incision does appear to be in well-healing there is no crepitus palpated. Attempts to obtain IV access and lab access were unsuccessful we will put requested for midline IV insertion. Onset (ago): unknown Location: lower extremity Radiation: non-radiation Pain Severity: severe Pain Scale: 9 Quality: stabbing Consistency: Worsening Improves with: nothing Worsens with: movement Associated symptoms: Reports: shortness of breath - Related Data Home Medications Medication Instructions Recorded Confirmed Paroxetine [Paxil] 60 mg PO HS 04/01/15 05/29/16 Buspirone HCl [Buspar] 10 mg PO BID 09/12/15 05/29/16 Diazepam [Valium] 10 mg PO TID 09/12/15 05/29/16 Gabapentin [Neurontin] 600 mg PO BID 09/12/15 05/29/16 Butalb/Acetaminophen/Caffeine 1 tab PO DAILY PRN 04/18/16 05/29/16 [Baikvc-[id number]-[id number] 50-325-40] Chlorpromazine HCl 300 mg PO HS 04/18/16 05/29/16 Cyclobenzaprine HCl 5 mg PO TID PRN 04/18/16 05/29/16 Trihexyphenidyl [Artane] 2 mg PO TID 04/18/16 05/29/16 Previous Rx's Medication Instructions Recorded Albuterol Sulfate [Albuterol 2 puff IH Q4HR PRN #2 hfa.aer.ad 04/30/16 Inhaler] Budesonide/Formoterol 160/4.5 2 puff IH BIDR 30 Days 04/30/16 [Symbicort 160/4.5] Naproxen [Naprosyn] 500 mg PO BIDWM PRN 14 Days 04/30/16 Nystatin OINT [Mycostatin] 1 appl TP QID 30 Days 04/30/16 Oxycodone HCl/Acetaminophen 1 each PO Q6H PRN #60 tablet 05/01/16 [Percocet 7.5-325 mg Tablet] Allergies Allergy/AdvReac Type Severity Reaction Status Date / Time metoclopramide [From Reglan] Allergy Mild Itching Verified 04/18/16 19:25 tramadol Allergy Mild Itching Verified 04/18/16 19:25 amitriptyline Allergy Itching Verified 04/18/16 19:25 Sulfa (Sulfonamide Allergy See Verified 04/18/16 19:25 Antibiotics) Comments sulfamethoxazole Allergy See Verified 04/18/16 19:25 [From Bactrim] Comments trimethoprim [From Bactrim] Allergy See Verified 04/18/16 19:25 Comments lorazepam [From Ativan] AdvReac Mild Anxiety Verified 04/18/16 19:25 benztropine [From Cogentin] AdvReac See Verified 04/18/16 19:25 Comments ciprofloxacin [From Cipro] AdvReac See Verified 04/18/16 19:25 Comments onabotulinumtoxinA AdvReac See Verified 04/18/16 19:25 [From Botox] Comments sumatriptan [From Imitrex] AdvReac Agitated Verified 04/18/16 19:25 topiramate [From Topamax] AdvReac See Verified 04/18/16 19:25 Comments All systems ED: reviewed and negative except as stated. Constitutional: Reports: weakness Eyes: Denies: eye pain, eye discharge, vision change ENT ED: Denies: ear pain, throat pain, dental pain, hearing loss, epistaxis, congestion, dysphagia Cardiovascular: Reports: dyspnea on exertion Respiratory: Reports: dyspnea Gastrointestinal: Denies: abdominal pain, nausea, vomiting, diarrhea, constipation, hematemesis, melena, hematochezia Genitourinary: Denies: dysuria, frequency, hematuria, discharge Past Medical History - Past Medical History Attestation: Yes The following information was validated with the patient. Source: patient, nursing notes reviewed Medical history: Reports: migraine, other Surgical history: Reports: cholecystectomy, herniorrhaphy, hysterectomy Psychiatric history: Reports: anxiety, bipolar, depression SKIN WASHER history: Reports: no SKIN WASHER history, other - Social History Smoking Status: Never smoker Smokeless Tobacco Status: No Alcohol use: Reports: none Drug use: Reports: none Physical Exam - General Limitations: no limitations General appearance: alert - Head Head exam: atraumatic, normocephalic, normal inspection - Eye Eye exam: Present: normal appearance, PERRL, EOMI - ENT ENT exam: normal exam, normal oropharynx, mucous membranes moist - Neck Neck exam: Present: normal inspection, full ROM, trachea midline. Absent: lymphadenopathy - Chest Chest inspection: Present: symmetric chest wall rise, tenderness (well healing right lateral thoractomy incision ), other (well healing right thoracotomy incision ) - Respiratory Respiratory exam: Present: normal lung sounds bilaterally - Cardiovascular Cardiovascular exam: Present: regular rate, normal rhythm, normal heart sounds - Abdominal Exam Abdominal exam: Present: soft, Non-Tender. Absent: tenderness, distention, guarding, rebound, rigidity - Expanded Lower Extremity Exam Hip/Pelvis exam: Present: normal inspection, full ROM Upper leg exam: Present: normal inspection, full ROM Knee exam: Present: normal inspection, full ROM Lower leg exam: Present: normal inspection, full ROM Ankle exam: Present: swelling (bilaterally 1+ - 2+ ) Foot/toe exam: Present: normal inspection, full ROM Neurovascular/Tendon exam: Absent: motor deficit, sensory deficit, tendon deficit - Back Exam Back exam: Present: normal inspection, full ROM. Absent: tenderness - Neurological Exam Neurological exam: Present: alert, oriented X3 - Psychiatric Psychiatric exam: Present: normal affect, normal mood - Skin Skin exam: Present: warm, dry, intact, normal color Course - Reevaluation(s) Reevaluation #1: report to Dr. Esposito as he will be assuming care of the patient. Time: 11:49 Vital Signs Temperature 97.7 F 05/29/16 08:12 Pulse Rate 84 05/29/16 08:12 Respiratory Rate 18 05/29/16 08:12 Blood Pressure 128/62 05/29/16 08:12 O2 Sat by Pulse Oximetry 97 05/29/16 08:12 Temperature 97.9 F 05/29/16 14:29 Pulse Rate 62 05/29/16 14:29 Respiratory Rate 16 05/29/16 14:29 Blood Pressure 103/60 05/29/16 14:29 O2 Sat by Pulse Oximetry 98 05/29/16 14:29 Medical Decision Making - Lab Data Result diagrams: 05/29/16 10:26 05/29/16 10:26 Lab Results 05/29/16 05/29/16 05/29/16 Range/Units 10:26 10:26 10:26 WBC 8.1 (4.3-11.1) K/mcL RBC 3.19 L (3.82-4.97) M/mcL Hgb 9.9 L (11.5-15.4) g/dL Hct 30.9 L (35.3-44.9) % MCV 96.9 (83.0-100.0) fL MCH 31.0 (28.0-33.3) pg MCHC 32.0 (31.6-35.5) g/dL RDW 13.5 (11.5-14.5) % Plt Count 248 (140-400) K/mcL MPV 9.4 (9.4-12.4) fL Immature Gran % 1.2 (0-4) % Seg Neutrophils % 62.1 % Lymphocytes % 18.3 % Monocytes % 7.5 % Eosinophils % 10.4 % Basophils % 0.5 % Neutrophils # 5.0 (1.6-8.9) K/mcL Lymphocytes # 1.5 (0.6-4.6) K/mcL Monocytes # 0.6 (0.0-1.3) K/mcL Eosinophils # 0.8 H (0.0-0.6) K/mcL Basophils # 0.0 (0.0-0.2) K/mcL Sodium 143 (136-145) mEq/L Potassium 4.3 (3.5-4.5) mEq/L Chloride 110 H (98-109) mEq/L Carbon Dioxide 22 (19-29) mEq/L BUN 11 (7-20) mg/dL Creatinine 0.84 (0.57-1.11) mg/dL Est GFR ( Amer) > 60 (> 60) Est GFR (Non-Af Amer) > 60 (> 60) BUN/Creatinine Ratio 13 (6-26) Glucose 89 (70-99) mg/dL Calculated Osmolality 295 (280-300) Calcium 9.0 (8.6-10.8) mg/dL Troponin I 0.00 (0-0.03) ng/mL B-Natriuretic Peptide (0-100) pg/mL Urine Color (Yellow) Urine Clarity (Clear) Urine pH (5.0-8.0) pH Units Ur Specific [place] (1.010-1.025) Urine Protein (Neg-Trace) mg/dL Urine Glucose (UA) (Normal) mg/dL Urine Ketones (Negative) mg/dL Urine Blood (Negative) Urine Nitrite (Negative) Urine Bilirubin (Negative) Urine Urobilinogen (Normal) mg/dL Ur Leukocyte Esterase (Negative) Ur Culture Indicated? (NO) 05/29/16 05/29/16 Range/Units 10:26 10:38 WBC (4.3-11.1) K/mcL RBC (3.82-4.97) M/mcL Hgb (11.5-15.4) g/dL Hct (35.3-44.9) % MCV (83.0-100.0) fL MCH (28.0-33.3) pg MCHC (31.6-35.5) g/dL RDW (11.5-14.5) % Plt Count (140-400) K/mcL MPV (9.4-12.4) fL Immature Gran % (0-4) % Seg Neutrophils % % Lymphocytes % % Monocytes % % Eosinophils % % Basophils % % Neutrophils # (1.6-8.9) K/mcL Lymphocytes # (0.6-4.6) K/mcL Monocytes # (0.0-1.3) K/mcL Eosinophils # (0.0-0.6) K/mcL Basophils # (0.0-0.2) K/mcL Sodium (136-145) mEq/L Potassium (3.5-4.5) mEq/L Chloride (98-109) mEq/L Carbon Dioxide (19-29) mEq/L BUN (7-20) mg/dL Creatinine (0.57-1.11) mg/dL Est GFR ( Amer) (> 60) Est GFR (Non-Af Amer) (> 60) BUN/Creatinine Ratio (6-26) Glucose (70-99) mg/dL Calculated Osmolality (280-300) Calcium (8.6-10.8) mg/dL Troponin I (0-0.03) ng/mL B-Natriuretic Peptide 74 (0-100) pg/mL Urine Color Yellow (Yellow) Urine Clarity Clear (Clear) Urine pH 6.0 (5.0-8.0) pH Units Ur Specific [place] 1.006 L (1.010-1.025) Urine Protein Negative (Neg-Trace) mg/dL Urine Glucose (UA) Normal (Normal) mg/dL Urine Ketones Negative (Negative) mg/dL Urine Blood Negative (Negative) Urine Nitrite Negative (Negative) Urine Bilirubin Negative (Negative) Urine Urobilinogen Normal (Normal) mg/dL Ur Leukocyte Esterase Negative (Negative) Ur Culture Indicated? NO (NO) S.B.Irena - Aimee Background: Presenting Complaint, Relevant PMH, Meds, & Allergies Assessment: Vital Signs, Course and respsone to treatment, Exam Concerns, Pertinant Lab Results S.B.A.RPriscilla Report Given to: MD Mil S.B.Irean Repor Time: 11:30
[2016-05-29 10:38] LABS: Basophils % 0.5 %; Eosinophils # 0.8 K/mcL (0.0-0.6); Eosinophils % 10.4 %; Hematocrit 30.9 % (35.3-44.9); Hemoglobin 9.9 g/dL (11.5-15.4); Immature Granulocytes % 1.2 % (0-4); Lymphocytes # 1.5 K/mcL (0.6-4.6); Lymphocytes % 18.3 %; Mean Corpuscular Volume 96.9 fL (83.0-100.0); Mean Platelet Volume 9.4 fL (9.4-12.4); Monocytes # 0.6 K/mcL (0.0-1.3); Monocytes % 7.5 %; Platelet Count 248 K/mcL (140-400); Red Blood Count 3.19 M/mcL (3.82-4.97); Red Cell Distribution Width 13.5 % (11.5-14.5); Segmented Neutrophils % 62.1 %
[2016-05-29 10:52] LABS: BUN/Creatinine Ratio 13 (6-26); Blood Urea Nitrogen 11 mg/dL (7-20); Carbon Dioxide 22 mEq/L (19-29); Chloride 110 mEq/L (98-109); Glucose 89 mg/dL (70-99); Osmolality,Calculated 295 (280-300); Potassium 4.3 mEq/L (3.5-4.5); Sodium 143 mEq/L (136-145); eGFR For African Americans > 60 (> 60); eGFR For Non-African Americans > 60 (> 60)
[2016-05-29 10:56] LABS: Bilirubin,Urine Negative (Negative); Blood,Urine Negative (Negative); Clarity,Urine Clear (Clear); Color,Urine Yellow (Yellow); Glucose,Urine (UA) Normal (Normal); Ketones,Urine Negative (Negative); Leukocyte Esterase,Urine Negative (Negative); Nitrite,Urine Negative (Negative); Protein,Urine Negative (Neg-Trace); Specific Gravity,Urine 1.006 (1.010-1.025); Urobilinogen,Urine Normal (Normal)
--- NOTE | 2016-05-29 11:47 | Electrocardiograph Report ---
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
[2016-05-29] MEDS ORDERED: *HR* HYDROmorphone (PF) 1 MG/ML SYRINGE IVP ONE (12:00)
--- NOTE | 2016-05-29 15:16 | Internal Med History&Physical ---
<Dimple Humphrey L - Last Filed: 05/29/16 18:09> Date of Encounter: 05/29/16 Time of Encounter: 15:00 Assessment and Plan (1) Weight gain Current visit: Yes Status: Acute 2 weeks history of weight gain. multifactorial: fluid retention, recent use of high dose steroids. CT chest unchanged from prior, ground glass opacities have mildly improved. no pulmonary edema. 04/20/17: Echocardiogram showed LVEF 60%, mild LV diastolic dysfunction. UA negative for protein. normal BNP. received IV Lasix in ED. continue low dose oral lasix. fluid restriction. will monitor urine output. check liver us, L:FT and tsh. (2) Chronic respiratory failure Current visit: Yes Status: Acute secondary to ILD. patient uses 4L NC. nebs, symbicort. Qualifiers: Respiratory failure complication: hypoxia Qualified Code(s): J96.11 - Chronic respiratory failure with hypoxia (3) ILD (interstitial lung disease) Current visit: Yes Status: Suspected worsening shortness of breath due to running out of inhalers. no wheezes. start nebs, symbicort. (4) Right-sided chest wall pain Current visit: Yes Status: Chronic continue home dose percocet. (5) Anemia Current visit: No Status: Chronic Stable at this time. Hgb 9.9 and Hematocrit 30.9 today. Both levels are up today from 1 month ago. Pt states that she does not take any supplements for her anemia and she states that she becomes SOB with amb of > 10ft. Qualifiers: Anemia type: other cause Other causes of anemia: other cause, not classified Qualified Code(s): D64.89 - Other specified anemias (6) Thyroid nodule Current visit: Yes Status: Acute Chest CT today revealed 9mm nodule on the R thyroid lobe. Pt denies pain or symptoms and was unaware of finding until today. Thyroid labs (7) Migraine Current visit: No Status: Chronic stable Qualifiers: Migraine type: without aura Status migrainosus presence: without status migrainosus Intractability: not intractable Qualified Code(s): G43.009 - Migraine without aura, not intractable, without status migrainosus (8) Obesity (BMI 30-39.9) Current visit: No Status: Chronic outpatient weight loss program Internal Medicine - H&P: HPI Chief complaint: R rib pain and 16 pounds of weight gain in the past 2 weeks Admitted From: Home Plans for Post Hospital Care: Home History of present illness: Ms. Montoya is a 55 year old female with past medical history migraines and mood disorder who had a recent prolonged hospitalization for hypoxemic respiratory failure due to suspected ILD (04/18-05/01). At that time, she received high-dose steoid therapy and underwent bronchoscopy with bronchioloalveolar lavage followed by thoracotomy and open lung biopsy on . She went home on [facility]. Since her lung biopsy she has had right rib pain that is well controlled with percocet at home. She was taking prednisone 10 mg daily until 05/18. She also quit smoking after her discharge. Now, she presents with 16 pounds weight gain in 2 weeks, associated with peripheral edema and shortness of breath. Her R lateral rib pain remains the same. Pt states that when she awakens in the morning, her hands and feet are swollen but her hands went back to normal in the afternoon. Pt reports orthopnea. She has an infrequent, dry cough and denies fever or chest congestion. Has been out of her albuterol inhaler for 2 days. In the ED, she received IV lasix, and dilaudid. Past Med Surg Social Fam HX - Past Medical History Medical history: migraine, other Psychiatric history: anxiety, bipolar, depression - Past Surgical History Surgical History: cholecystectomy, herniorrhaphy, hysterectomy - Social History Smoking Status: Never smoker Smokeless Tobacco Status: No Alcohol use: none Drug use: none - Family History Father Living Status: Still Living Hx Family Cardiac Disorders: Yes Mother Family Member Ethnicity: Non- Living Status: Still Living Hx Family Cardiac Disorders: No Hx Family Respiratory Disorders: Yes (short of breath) Hx Family Cancer: No Hx Family GI Disorders: No Hx Family Endocrine Disorder: No Hx Family Neuromuscular Disorders: No Hx Family Neurologic Disorders: No Hx Family HEENT Disorders: No Hx Family Autoimmune Disorders: Yes (hyperthyroid) Grandfather Living Status: Hx Family Cardiac Disorders: Yes Internal Medicine - H&P: Meds Paroxetine [Paxil] 60 mg PO HS 04/01/15 [History] Buspirone HCl [Buspar] 10 mg PO BID 09/12/15 [History] Diazepam [Valium] 10 mg PO TID 09/12/15 [History] Gabapentin [Neurontin] 600 mg PO BID 09/12/15 [History] Butalb/Acetaminophen/Caffeine [Hqzqcx-Juiqamhn-Mhjn 50-325-40] 1 tab PO DAILY PRN 04/18/16 [History] Chlorpromazine HCl 300 mg PO HS 04/18/16 [History] Cyclobenzaprine HCl 5 mg PO TID PRN 04/18/16 [History] Trihexyphenidyl [Artane] 2 mg PO TID 04/18/16 [History] Albuterol Sulfate [Albuterol Inhaler] 2 puff IH Q4HR PRN #2 [id number] 04/30/16 [Rx] Budesonide/Formoterol 160/4.5 [Symbicort 160/4.5] 2 puff IH BIDR 30 Days [Rx] Naproxen [Naprosyn] 500 mg PO BIDWM PRN 14 Days 04/30/16 [Rx] Nystatin OINT [Mycostatin] 1 appl TP QID 30 Days 04/30/16 [Rx] Oxycodone HCl/Acetaminophen [Percocet 7.5-325 mg Tablet] 1 each PO Q6H PRN #60 tablet 05/01/16 [Rx] Allergies metoclopramide [From Reglan] Allergy (Mild, Verified 04/18/16 19:25) Itching tramadol Allergy (Mild, Verified 04/18/16 19:25) Itching amitriptyline Allergy (Verified 04/18/16 19:25) Itching Sulfa (Sulfonamide Antibiotics) Allergy (Verified 04/18/16 19:25) See Comments sulfamethoxazole [From Bactrim] Allergy (Verified 04/18/16 19:25) See Comments trimethoprim [From Bactrim] Allergy (Verified 04/18/16 19:25) See Comments blisters on hands and feet lorazepam [From Ativan] Adverse Reaction (Mild, Verified 04/18/16 19:25) Anxiety benztropine [From Cogentin] Adverse Reaction (Verified 04/18/16 19:25) See Comments patient states it causes sores on tongue ciprofloxacin [From Cipro] Adverse Reaction (Verified 04/18/16 19:25) See Comments BLISTERS TO HANDS AND FEET onabotulinumtoxinA [From Botox] Adverse Reaction (Verified 04/18/16 19:25) See Comments patient states it causes neck pain sumatriptan [From Imitrex] Adverse Reaction (Verified 04/18/16 19:25) Agitated topiramate [From Topamax] Adverse Reaction (Verified 04/18/16 19:25) See Comments patient states it makes her hyper All Systems PM: A 10-system review of systems was performed and is negative for pertinent findings except as documented above in the HPI. - Constitutional Constitutional: weight gain, no chills, no fever(s), no falls, no weakness Additional comments: Pt states that she weighed 161 lbs 2 weeks ago and now weighs 177 lbs. - EENT Eyes: no blurry vision, no change in vision - Cardiovascular Cardiovascular ROS IM: edema, orthopnea, no chest pain, no dyspnea on exertion, no irregular heart rhythm, no lightheadedness - Respiratory Respiratory: cough, pain with cough, no wheezing Additional comments: Pt states that when she coughs, it feels like a knife stabbing her in the R ant ribs. - Gastrointestinal Gastrointestinal: vomiting, no abdominal pain, no constipation, no diarrhea, no nausea - Musculoskeletal Musculoskeletal ROS IM: no neck pain, no tingling - Constitutional Vitals: Temp Pulse Resp BP Pulse Ox 97.9 F 62 16 103/60 98 05/29/16 14:29 05/29/16 14:29 05/29/16 14:29 05/29/16 14:29 05/29/16 14:29 General appearance: Present: A&O X 3, pleasant, severe distress Exam: Pt drowsy, speech slightly slurred. Pt had IV dilaudid in ED - Eye Eye exam: Present: normal appearance, conjuntiva pink - ENT ENT exam: Present: mucous membranes moist - Neck Neck exam general surgery: Present: normal inspection. Absent: tenderness - Respiratory Respiratory exam: Present: CTAB. Absent: chest wall tenderness, respiratory distress, rhonchi, wheezes - Cardiovascular Cardiovascular exam: Present: JVD, +S1, +S2, +S3. Absent: distant heart sounds , gallop, systolic murmur, tachycardia - GI/Abdominal GI/Abdominal exam: Present: hyperactive bowel sounds, normal bowel sounds. Absent: hepatomegaly, pulsatile mass, splenomegaly Additional comments: Pt reports pain to RUQ with palpation, no palpable masses, no bruising or injury noted to area. - Extremities Exam Extremities exam: Present: full ROM, joint swelling, pedal edema (minimal pitting edema in legs), warm, radial pulses palpable and symetrical. Absent: tenderness Additional comments: Pt without pedal edema, pretibial edema. Pedal pulses +2 romain. - Neurological Exam Neurological exam: Present: alert, oriented X3, strengths equal and symetr throughout. Absent: facial droop, speech deficit - Psychiatric Psychiatric exam: Present: flat affect, normal affect. Absent: agitated, anxious Internal Med - H&P Results - Labs CBC & Chem 7: 05/29/16 10:26 05/29/16 10:26 <Michelle Ryan E - Last Filed: 05/29/16 18:50> Date of Encounter: 05/29/16 Internal Medicine - H&P: HPI History of present illness: Ms. Montoya is a 55 year old female All Systems PM: A 10-system review of systems was performed and is negative for pertinent findings except as documented above in the HPI. - Constitutional Vitals: Temp Pulse Resp BP Pulse Ox 97.9 F 62 16 103/60 98 05/29/16 14:29 05/29/16 14:29 05/29/16 14:29 05/29/16 14:29 05/29/16 14:29 Internal Med - H&P Results - Labs CBC & Chem 7: 05/29/16 10:26 05/29/16 10:26 - Attending Attestation I examined this patient and reviewed laboratory, imaging and all diagnostic data. My medical decision-making was reviewed with SUSY Humphrey. I agree with the documented findings, disposition and treatment plan as described above. Patient is a 55 yo F with a recent hospitalization in Mar 2016 for hypoxemia and was treated as ILD with high dose steroids. 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 She presents with weight gain and shortness of breath after running out of her inhaler. Exam shows minimal pitting edema and diminished air entry but no crackles or wheezes. A/P 1. weight gain likely from steroid use and diastolic heart faillure. lasix. fluid restriction. check US liver. 2. respiratory failure is chronic, continue oxygen at 4L NC. nebs. symbicort.
[2016-05-29] MEDS ORDERED: Acetaminophen 325 MG TABLET PO PRN (15:49)
[2016-05-29] MEDS ORDERED: Naloxone 0.4 MG/ML INJ IVP PRN (15:49)
[2016-05-29] MEDS ORDERED: MOM Conc 10 ML UD.LIQ PO PRN (15:49)
[2016-05-29] MEDS ORDERED: Acetaminophen 325 MG TABLET PO ONE (15:53)
[2016-05-29] MEDS ORDERED: Ondansetron 4 MG/2 ML VIAL IVP PRN (16:00)
[2016-05-29] MEDS: *HR* HYDROcodone/Acet 5/325 mg TABLET PO PRN (19:35)
[2016-05-29 20:13] LABS: Albumin 2.9 g/dL (3.5-5.0); Bilirubin,Direct 0.1 mg/dL (0.0-0.5); Bilirubin,Indirect 0.1 mg/dL (0.0-1.2); Bilirubin,Total 0.2 mg/dL (0.2-1.2); Globulin 2.9 g/dL (2.4-3.5); Total Protein 5.8 g/dL (6.0-8.3)
[2016-05-29] MEDS: Budesonide/Formoterol 160/4.5 MDI IH SCH (20:48)
[2016-05-29] MEDS: Ipratropium/Albuterol Neb 3 ML IH SCH ×2 (20:48→23:32)
[2016-05-29] MEDS: chlorproMAZINE 25 MG TABLET PO SCH (21:26)
[2016-05-29] MEDS: Nystatin OINT 15 GM TUBE TP SCH (21:28)
[2016-05-29] MEDS: Gabapentin 300 MG CAPSULE PO SCH (21:28)
[2016-05-29] MEDS: diazePAM 10 MG TABLET PO SCH (21:28)
[2016-05-30 04:42] LABS: Basophils # 0.1 K/mcL (0.0-0.2); Basophils % 0.8 %; Eosinophils # 0.8 K/mcL (0.0-0.6); Eosinophils % 8.4 %; Hematocrit 32.9 % (35.3-44.9); Hemoglobin 10.9 g/dL (11.5-15.4); Immature Granulocytes % 1.5 % (0-4); Lymphocytes # 1.6 K/mcL (0.6-4.6); Lymphocytes % 17.3 %; Mean Corpuscular HGB Conc 33.1 g/dL (31.6-35.5); Mean Corpuscular Hemoglobin 31.1 pg (28.0-33.3); Mean Corpuscular Volume 93.7 fL (83.0-100.0); Mean Platelet Volume 10.2 fL (9.4-12.4); Monocytes # 0.8 K/mcL (0.0-1.3); Monocytes % 9.2 %; Neutrophils # 5.6 K/mcL (1.6-8.9); Platelet Count 232 K/mcL (140-400); Red Blood Count 3.51 M/mcL (3.82-4.97); Red Cell Distribution Width 13.6 % (11.5-14.5); Segmented Neutrophils % 62.8 %
[2016-05-30] MEDS: Ipratropium/Albuterol Neb 3 ML IH SCH ×6 (04:44→23:09)
[2016-05-30 04:58] LABS: BUN/Creatinine Ratio 14 (6-26); Blood Urea Nitrogen 12 mg/dL (7-20); Carbon Dioxide 21 mEq/L (19-29); Chloride 107 mEq/L (98-109); Glucose 100 mg/dL (70-99); Magnesium 1.7 mg/dL (1.6-2.6); Osmolality,Calculated 292 (280-300); Potassium 4.5 mEq/L (3.5-4.5); Sodium 141 mEq/L (136-145); eGFR For African Americans > 60 (> 60); eGFR For Non-African Americans > 60 (> 60)
[2016-05-30] MEDS: *HR* HYDROcodone/Acet 5/325 mg TABLET PO PRN ×3 (06:23→18:26)
[2016-05-30] MEDS ORDERED: Furosemide 20 MG TABLET PO SCH (08:00)
[2016-05-30] MEDS: diazePAM 10 MG TABLET PO SCH ×3 (08:18→22:21)
[2016-05-30] MEDS: Gabapentin 300 MG CAPSULE PO SCH ×2 (08:18→21:41)
[2016-05-30] MEDS: Nystatin OINT 15 GM TUBE TP SCH ×4 (08:24→21:46)
[2016-05-30] MEDS: Budesonide/Formoterol 160/4.5 MDI IH SCH ×2 (08:30→20:09)
--- NOTE | 2016-05-30 18:09 | Internal Med Progress Note ---
Date of Encounter: 05/30/16 Time of Encounter: 15:30 - Assessment and plan (1) Weight gain Current Visit: Yes Status: Acute Assessment and plan: All the patient's presenting complaint was weight gain, review of her chart from previous admissions showed that she actually has lost weight since her last admission. No evident pitting peripheral edema on clinical examination. TSH noted to be within normal limits from her previous admission last month. Presumed weight gain could be related to the use of high-dose IV and oral steroids for interstitial lung disease. 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 She completed a course of steroids. Currently doing well, requiring low-dose supplemental oxygen. However she is noted to walk around the hallways with no oxygen on and reports she does not need it. She is also unable to state if she does have a home oxygen and if she does use it at home. Qualifiers: Respiratory failure complication: hypoxia Qualified Code(s): J96.11 - Chronic respiratory failure with hypoxia (3) ILD (interstitial lung disease) Current Visit: Yes Status: Chronic Assessment and plan: Continue when necessary bronchodilators and supplemental oxygen. Patient reports that she was given 2 refills for her inhalers, and then reports that she ran out of her inhalers which is why she was feeling short of breath. On further questioning as to why she did not get her refills, she reports she is confused and does not remember anything. (4) Anxiety Current Visit: Yes Status: Chronic (5) Bipolar disorder Current Visit: Yes Status: Chronic Assessment and plan: Patient cannot provide appropriate history and there is no correlation between her presenting symptoms, clinical examination and lab data. Patient's mother reported to patient's nurse that she is unable to care for the patient, she is noted to neglect her personal hygiene and would just lie on the couch, not attempt to get up, not even to eat or drink, she would not take her medications. Patient will likely benefit from psychiatric evaluation while in the hospital. We will consult psychiatric for further recommendations. Physical and occupational therapy evaluation, social work specialist consult. Qualifiers: Active/Remission status: remission status unspecified Qualified Code(s): F31.9 - Bipolar disorder, unspecified (6) Depression Current Visit: Yes Status: Chronic Qualifiers: Depression Type: unspecified Qualified Code(s): F32.9 - Major depressive disorder, single episode, unspecified - Subjective Interval history: Noted to be walking up and down the hallways. Reports no chest pain, shortness of breath, cough, fever or any other complaints. Reports a weight gain of at least 15 pounds in the last 2 weeks. No urinary complaints. - Constitutional Vitals: Temp Pulse Resp BP Pulse Ox 97.8 F 79 18 102/63 100 05/30/16 16:00 05/30/16 16:00 05/30/16 16:56 05/30/16 16:00 05/30/16 16:56 General appearance: Present: A&O X 3, obese - Head Head exam: Present: atraumatic, normocephalic - Neck Neck exam general surgery: Present: supple, trachea midline. Absent: lymphadenopathy - Respiratory Respiratory exam: Present: rales (Faint Velcro crackles at left base). Absent: accessory muscle use, rhonchi, wheezes - Cardiovascular Cardiovascular exam: Present: RRR, +S1, +S2. Absent: diastolic murmur, gallop, rubs, systolic murmur - GI/Abdominal GI/Abdominal exam: Present: normal bowel sounds, soft, no peritoneal signs. Absent: distended, tenderness - Extremities Exam Extremities exam: Present: full ROM, warm, radial pulses palpable and symetrical. Absent: calf tenderness, cyanotic, pedal edema - Neurological Exam Neurological exam: Present: CN II-XII intact, oriented X3, no focal deficits. Absent: pronater drift, facial droop, speech deficit - Skin Skin exam: Present: dry, intact Internal Medicine: Result - Labs CBC & Chem 7: 05/30/16 04:16 05/30/16 04:16 Labs: Short CBC 05/30/16 Range/Units 04:16 WBC 8.9 (4.3-11.1) K/mcL Hgb 10.9 L (11.5-15.4) g/dL Hct 32.9 L (35.3-44.9) % Plt Count 232 (140-400) K/mcL Neutrophils # 5.6 (1.6-8.9) K/mcL BMP 05/30/16 04:16 Sodium 141 Potassium 4.5 Chloride 107 Carbon Dioxide 21 BUN 12 Creatinine 0.85 Glucose 100 H Calcium 9.0 Liver Function 05/29/16 Range/Units 19:45 Total Bilirubin 0.2 (0.2-1.2) mg/dL Direct Bilirubin 0.1 (0.0-0.5) mg/dL AST 23 (5-34) Units/L ALT 25 (0-55) Units/L Alkaline Phosphatase 184 H (38-126) Units/L Albumin 2.9 L (3.5-5.0) g/dL - Impressions Impressions Liver Ultrasound 05/30/16 09:00 IMPRESSION: Prior cholecystectomy. No abnormalities in the surgical bed. Stable dilatation of common bile duct likely on the basis of prior cholecystectomy. Right kidney mildly diminutive in length, stable from prior exam. Right kidney is otherwise unremarkable. Hyperechoic focus to the left lobe of the liver correlates with low-attenuation focus on prior CT exam which has been stable on CT exams as far back as 2006, and is compatible with benign etiology, likely hemangioma. No necessity for continued follow-up. D/ / 05/30/2016 10:13:54 Efra Yu MD / bcarter Interpreting Provider: Efra Yu MD Thyroid Ultrasound 05/30/16 09:00 IMPRESSION: Heterogeneous appearance of the thyroid gland with multiple subcentimeter nodules. No definite microcalcification visualized. D/ / Angela Mitchell MD / Angela Mitchell MD Interpreting Provider: Angela Mitchell MD Consult Discharge Plan - Plan Referrals: Iman Monae CNP [Primary Care Provider] - 06/03/16 10:40 am
[2016-05-30] MEDS: chlorproMAZINE 25 MG TABLET PO SCH (21:40)
[2016-05-31] MEDS: *HR* HYDROcodone/Acet 5/325 mg TABLET PO PRN ×2 (01:19→09:33)
[2016-05-31] MEDS: Ipratropium/Albuterol Neb 3 ML IH SCH ×3 (04:22→11:13)
[2016-05-31] MEDS: Budesonide/Formoterol 160/4.5 MDI IH SCH (07:47)
[2016-05-31] MEDS: Gabapentin 300 MG CAPSULE PO SCH (09:34)
[2016-05-31] MEDS: diazePAM 10 MG TABLET PO SCH ×2 (09:34→15:09)
[2016-05-31] MEDS: Nystatin OINT 15 GM TUBE TP SCH ×2 (09:34→14:19)
[2016-05-31 11:33] VITALS: BP 120/77
--- NOTE | 2016-05-31 14:20 | Discharge Summary ---
Date of Encounter: 05/31/16 Time of Encounter: 14:13 - Discharge Diagnosis (1) Weight gain Priority: Primary Status: Ruled-out (2) Chronic respiratory failure Priority: Secondary Status: Chronic Qualifiers: Respiratory failure complication: hypoxia Qualified Code(s): J96.11 - Chronic respiratory failure with hypoxia (3) ILD (interstitial lung disease) Priority: Secondary Status: Chronic (4) Anxiety Priority: Secondary Status: Chronic (5) Bipolar disorder Priority: Secondary Status: Chronic Qualifiers: Active/Remission status: remission status unspecified Qualified Code(s): F31.9 - Bipolar disorder, unspecified (6) Depression Priority: Secondary Status: Chronic Qualifiers: Depression Type: unspecified Qualified Code(s): F32.9 - Major depressive disorder, single episode, unspecified - Discharge Medications Prescriptions: OxyCODONE/APAP 5/325 [Percocet 5/325 MG] 1 each PO Q6HR PRN #20 tablet PRN Reason: Pain Home Medications: Paroxetine [Paxil] 60 mg PO HS 04/01/15 [History] Buspirone HCl [Buspar] 10 mg PO BID 09/12/15 [History] Butalb/Acetaminophen/Caffeine [Rkzeya-Nubfbsii-Twds 50-325-40] 1 tab PO DAILY PRN 04/18/16 [History] Chlorpromazine HCl 300 mg PO HS 04/18/16 [History] Cyclobenzaprine HCl 5 mg PO TID PRN 04/18/16 [History] Trihexyphenidyl [Artane] 2 mg PO TID 04/18/16 [History] Naproxen [Naprosyn] 500 mg PO BIDWM PRN 14 Days 04/30/16 [Rx] Nystatin OINT [Mycostatin] 1 appl TP QID 30 Days 04/30/16 [Rx] Albuterol Sulfate [Albuterol Inhaler] 2 puff IH Q4HR PRN 30 Days 05/31/16 [Rx] Budesonide/Formoterol 160/4.5 [Symbicort 160/4.5] 2 puff IH BIDR 30 Days [Rx] Diazepam [Valium] 5 mg PO BID #20 05/31/16 [Rx] Gabapentin [Neurontin] 300 mg PO BID #30 02/03/17 [Rx] OxyCODONE/APAP 5/325 [Percocet 5/325 MG] 1 each PO Q6HR PRN #20 tablet 05/31/16 [Rx] Allergies/Adverse Reactions: Allergies metoclopramide [From Reglan] Allergy (Mild, Verified 04/18/16 19:25) Itching tramadol Allergy (Mild, Verified 04/18/16 19:25) Itching amitriptyline Allergy (Verified 04/18/16 19:25) Itching Sulfa (Sulfonamide Antibiotics) Allergy (Verified 04/18/16 19:25) See Comments sulfamethoxazole [From Bactrim] Allergy (Verified 04/18/16 19:25) See Comments trimethoprim [From Bactrim] Allergy (Verified 04/18/16 19:25) See Comments blisters on hands and feet lorazepam [From Ativan] Adverse Reaction (Mild, Verified 04/18/16 19:25) Anxiety benztropine [From Cogentin] Adverse Reaction (Verified 04/18/16 19:25) See Comments patient states it causes sores on tongue ciprofloxacin [From Cipro] Adverse Reaction (Verified 04/18/16 19:25) See Comments BLISTERS TO HANDS AND FEET onabotulinumtoxinA [From Botox] Adverse Reaction (Verified 04/18/16 19:25) See Comments patient states it causes neck pain sumatriptan [From Imitrex] Adverse Reaction (Verified 04/18/16 19:25) Agitated topiramate [From Topamax] Adverse Reaction (Verified 04/18/16 19:25) See Comments patient states it makes her hyper Procedures/tests Complete & Pending: Procedures Performed prior 72 hours Category Date Time Status US liver [US] Routine Exams 05/30/16 09:00 Completed US thyroid [US] Routine Exams 05/30/16 09:00 Completed Date of admission: 05/29/16 13:56 Primary care physician: Iman Monae CNP Consults: 05/29/16 14:38 Consult to Data Recovery Planner [CONS] Routine Reason for SW Consult: Pt states she has [facility] 05/30/16 15:38 Consult to Physical Therapy [CONS] Routine Comment: Evaluate, develop and implement POC 05/30/16 15:39 Consult to Occupational Therapy [CONS] Routine Comment: Evaluate, develop and implement POC 05/30/16 18:05 Consult to Psychiatry [CONS] Routine Consulting Provider: Psychiatry Patty Reason for Consult: Personal neglect, inability to comply with medical treatment with h/o- BPD Call Completed: No Discharging clinician: Elin Perez Anticipated date of discharge: 05/31/16 - Patient Status Disposition: Home Health Service Condition: Good Functional capacity at discharge: independent ambulation Overall status at discharge: patient is progressing back to baseline - Discharge Instructions Instructions: Dyspnea (GEN), Back Pain (GEN) Follow Up With: Marina Doyle MD [Partnered Physician] - 06/25/16 9:30 am Iman Monae CNP [Primary Care Provider] - 06/03/16 10:40 am Forms: ED Satisfaction Letter Additional Instructions: F/up with , Psychiatry in 1-2 weeks - Diet and Activity Activity: resume usual activities as tolerated, wear oxygen at all times Diet: advance to your usual diet, regular diet Hospital course: Ms. Montoya is a 55 year old female with history of bipolar disorder, interstitial lung disease on home oxygen, was admitted with complains of weight gain and respiratory distress. Initial labs, chest x-ray and EKG showed no acute abnormality. She reportedly ran out of her inhalers at home which was the cause of her respiratory distress. She was started on scheduled bronchodilators and supplemental oxygen and she significantly improved by the next day. 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 CT chest done during this admission showed improving groundglass opacities. She was also noted to have right-sided pulmonary nodules, less than 4 mm in size; recommendation is to have a follow-up CT scan done in 12 months. She was also noted to have right thyroid nodule and liver lesions and underwent ultrasound of thyroid and liver. Thyroid ultrasound showed multiple subcentimeter nodules and she will need outpatient follow-up for this. TSH was noted to be within normal limits. Liver ultrasound was done and lesion was suggestive of hemangioma, benign. On review of her previous admission chart, she was noted to have actually lost weight rather than weight gain and clinically she had no peripheral edema or volume overload. Patient's mother expressed concerns regarding her personal hygiene and self-care at home. Case was discussed with psychiatry who opined that patient is on multiple sedatives/hypnotics which could cause her to slow down and become drowsy and there is no inpatient recommendations at this time, however patient was strongly encouraged to follow up with outpatient psychiatric and her mother was encouraged to go with the patient to these appointments to discuss her polypharmacy. They verbalized understanding and patient is otherwise medically stable for discharge with reinstatement of home health services. - Time Spent with Patient Total time spent providing and/or coordinating discharge services: Greater than 30 minutes (50 min) - Constitutional Vitals: Temp Pulse Resp BP Pulse Ox 97.6 F 90 16 120/77 98 05/31/16 11:32 05/31/16 11:32 05/31/16 11:32 05/31/16 11:32 05/31/16 11:32 General appearance: Present: A&O X 3, obese, answers questions appropriately - Respiratory Respiratory exam: Present: rales (left basal dry inspiratory crackles). Absent : accessory muscle use, rhonchi, wheezes - Cardiovascular Cardiovascular exam: Present: RRR, +S1, +S2. Absent: diastolic murmur, gallop, rubs, systolic murmur
--- NOTE | 2016-05-31 14:30 | Physician Discharge Referral ---
Home Health/Hosp Referral Info Transfer to: Home Health Attending Provider: Elin Perez Provider in Charge Post Discharge: PCP - Diagnosis (1) Weight gain Priority: Primary Status: Ruled-out (2) Chronic respiratory failure Priority: Secondary Status: Chronic (3) ILD (interstitial lung disease) Priority: Secondary Status: Chronic (4) Anxiety Priority: Secondary Status: Chronic (5) Bipolar disorder Priority: Secondary Status: Chronic (6) Depression Priority: Secondary Status: Chronic - Respiratory Orders Oxygen / L per min (3-4L/min via NC) Smoking Cessation: Smoking cessation has been advised. For more information, call the [place] Tobacco Quit Line at 8-551-KUQS-NOW. - Diet/Nutrition Diet/Nutrition Orders: Regular - Activity Activity Orders: Ambulate - Services Needed Following services are medically necessary services: Nursing, Physical Therapy, Occupational Therapy - Transfer Medications Prescriptions: OxyCODONE/APAP 5/325 [Percocet 5/325 MG] 1 each PO Q6HR PRN #20 tablet PRN Reason: Pain Home Medications: Paroxetine [Paxil] 60 mg PO HS 04/01/15 [History] Buspirone HCl [Buspar] 10 mg PO BID 09/12/15 [History] Butalb/Acetaminophen/Caffeine [Tvmmle-Docrdxol-Dnrs 50-325-40] 1 tab PO DAILY PRN 04/18/16 [History] Chlorpromazine HCl 300 mg PO HS 04/18/16 [History] Cyclobenzaprine HCl 5 mg PO TID PRN 04/18/16 [History] Trihexyphenidyl [Artane] 2 mg PO TID 04/18/16 [History] Naproxen [Naprosyn] 500 mg PO BIDWM PRN 14 Days 04/30/16 [Rx] Nystatin OINT [Mycostatin] 1 appl TP QID 30 Days 04/30/16 [Rx] Albuterol Sulfate [Albuterol Inhaler] 2 puff IH Q4HR PRN 30 Days 05/31/16 [Rx] Budesonide/Formoterol 160/4.5 [Symbicort 160/4.5] 2 puff IH BIDR 30 Days [Rx] Diazepam [Valium] 5 mg PO BID #20 05/31/16 [Rx] Gabapentin [Neurontin] 300 mg PO BID #30 05/31/16 [Rx] OxyCODONE/APAP 5/325 [Percocet 5/325 MG] 1 each PO Q6HR PRN #20 tablet 05/31/16 [Rx] Allergies/Adverse Reactions: Allergies metoclopramide [From Reglan] Allergy (Mild, Verified 04/18/16 19:25) Itching tramadol Allergy (Mild, Verified 04/18/16 19:25) Itching amitriptyline Allergy (Verified 04/18/16 19:25) Itching Sulfa (Sulfonamide Antibiotics) Allergy (Verified 04/18/16 19:25) See Comments sulfamethoxazole [From Bactrim] Allergy (Verified 04/18/16 19:25) See Comments trimethoprim [From Bactrim] Allergy (Verified 04/18/16 19:25) See Comments blisters on hands and feet lorazepam [From Ativan] Adverse Reaction (Mild, Verified 04/18/16 19:25) Anxiety benztropine [From Cogentin] Adverse Reaction (Verified 04/18/16 19:25) See Comments patient states it causes sores on tongue ciprofloxacin [From Cipro] Adverse Reaction (Verified 04/18/16 19:25) See Comments BLISTERS TO HANDS AND FEET onabotulinumtoxinA [From Botox] Adverse Reaction (Verified 04/18/16 19:25) See Comments patient states it causes neck pain sumatriptan [From Imitrex] Adverse Reaction (Verified 04/18/16 19:25) Agitated topiramate [From Topamax] Adverse Reaction (Verified 04/18/16 19:25) See Comments patient states it makes her hyper Certification: Further, I certify that my clinical findings support that this patient is homebound (i.e. absences from home require considerable and taxing effort and are for medical reasons or sikh services or infrequently or short duration when for other reasons) because: Homebound Reason: Altered mental status requiring supervision when leaving home , Severity of cardiac or pulmonary status limits activity tolerance Attestation: My signature below is to certify that this patient is under my care and that I, or nurse practitioner, or a physician's assistant merchandise manager working with me, has a face-to -face encounter with this patient.
== END 2016-05-31 15:20 | disposition home health service (06) ==
LOC: 3BNU 08:10 → EMEROO 08:10 → SUATTDRO 13:56 → 3BNU 14:15
PROVIDERS: ADMIT Nurse Practitioner Family; ATTEND Internal Medicine

== ENCOUNTER 2016-08-01 16:36 | Observation (INO) ==
[2016-08-01 17:48] LABS: Basophils % 0.2 %; Eosinophils % 0.1 %; Hematocrit 35.4 % (35.3-44.9); Hemoglobin 11.2 g/dL (11.5-15.4); Immature Granulocytes % 0.5 % (0-4); Lymphocytes # 0.6 K/mcL (0.6-4.6); Lymphocytes % 4.7 %; Mean Corpuscular HGB Conc 31.6 g/dL (31.6-35.5); Mean Corpuscular Hemoglobin 29.4 pg (28.0-33.3); Mean Corpuscular Volume 92.9 fL (83.0-100.0); Mean Platelet Volume 9.2 fL (9.4-12.4); Monocytes # 0.2 K/mcL (0.0-1.3); Monocytes % 1.4 %; Neutrophils # 12.2 K/mcL (1.6-8.9); Platelet Count 281 K/mcL (140-400); Red Blood Count 3.81 M/mcL (3.82-4.97); Red Cell Distribution Width 13.2 % (11.5-14.5); Segmented Neutrophils % 93.1 %
--- NOTE | 2016-08-01 17:51 | Emergency Department Note ---
Disposition Clinical Impression: Slurred speech, Mydriasis, SOREN (acute kidney injury) Leukocytosis Qualifiers: Leukocytosis type: unspecified Qualified Code(s): D72.829 - Elevated white blood cell count, unspecified Disposition: Still a Patient Condition: Fair Referrals: NO,PCP [Primary Care Provider] - Forms: ED Satisfaction Letter Time of Disposition: 19:25 Weakness HPI - General Chief complaint: ED Weakness Stated complaint: Generalized weakness Time Seen by Provider: 08/01/16 17:23 Source: patient, EMS Mode of arrival: ambulatory Limitations: no limitations Nursing Notes Reviewed: Yes Vital Signs Reviewed: Yes - History of Present Illness HPI Narrative: Patient is a 55-year-old female with past medical history of bipolar disorder, migraines. She came in today due to generalized weakness. Patient said that she woke up this morning and fell over a week. She also has chronic back pain and took a Vicodin. She says the she feels as though she cannot use her bilateral upper extremity is because she is so weak and tired. Patient was slurring her words on exam, unable to keep her eyes open. Denies any chest pain , shortness of breath, nausea, vomiting, numbness, tingling, abdominal pain, diarrhea. Denies any previous stroke, RI. Pain Scale: 3 - Related Data Home Medications Medication Instructions Recorded Confirmed Paroxetine [Paxil] 60 mg PO HS 04/01/15 05/29/16 Buspirone HCl [Buspar] 10 mg PO BID 09/12/15 05/29/16 Butalb/Acetaminophen/Caffeine 1 tab PO DAILY PRN 04/18/16 05/29/16 [Ikvtcy-Puxqupkv-Giul 50-325-40] Chlorpromazine HCl 300 mg PO HS 04/18/16 05/29/16 Cyclobenzaprine HCl 5 mg PO TID PRN 04/18/16 05/29/16 Trihexyphenidyl [Artane] 2 mg PO TID 04/18/16 05/29/16 Previous Rx's Medication Instructions Recorded Naproxen [Naprosyn] 500 mg PO BIDWM PRN 14 Days 04/30/16 Nystatin OINT [Mycostatin] 1 appl TP QID 30 Days 04/30/16 Albuterol Sulfate [Albuterol 2 puff IH Q4HR PRN 30 Days 05/31/16 Inhaler] Budesonide/Formoterol 160/4.5 2 puff IH BIDR 30 Days 05/31/16 [Symbicort 160/4.5] Diazepam [Valium] 5 mg PO BID #20 05/31/16 Gabapentin [Neurontin] 300 mg PO BID #30 05/31/16 OxyCODONE/APAP 5/325 [Percocet 1 each PO Q6HR PRN #20 tablet 05/31/16 5/325 MG] OxyCODONE/APAP 5/325 [Percocet 1 each PO Q6HR PRN #7 tablet 07/08/16 5/325] Allergies Allergy/AdvReac Type Severity Reaction Status Date / Time metoclopramide [From Reglan] Allergy Mild Itching Verified 07/08/16 19:43 tramadol Allergy Mild Itching Verified 07/08/16 19:43 amitriptyline Allergy Itching Verified 07/08/16 19:43 Sulfa (Sulfonamide Allergy See Verified 07/08/16 19:43 Antibiotics) Comments sulfamethoxazole Allergy See Verified 07/08/16 19:43 [From Bactrim] Comments trimethoprim [From Bactrim] Allergy See Verified 07/08/16 19:43 Comments lorazepam [From Ativan] AdvReac Mild Anxiety Verified 07/08/16 19:43 benztropine [From Cogentin] AdvReac See Verified 07/08/16 19:43 Comments ciprofloxacin [From Cipro] AdvReac See Verified 07/08/16 19:43 Comments onabotulinumtoxinA AdvReac See Verified 07/08/16 19:43 [From Botox] Comments sumatriptan [From Imitrex] AdvReac Agitated Verified 07/08/16 19:43 topiramate [From Topamax] AdvReac See Verified 07/08/16 19:43 Comments All systems ED: reviewed and negative except as stated. Constitutional: Denies: fever Cardiovascular: Denies: chest pain, palpitations, dyspnea on exertion Respiratory: Denies: cough, dyspnea, wheezes Gastrointestinal: Denies: abdominal pain, nausea, vomiting, diarrhea Genitourinary: Denies: urgency, dysuria Musculoskeletal: Denies: back pain Integumentary: Denies: rash Neurological: Reports: weakness (Generalized). Denies: headache, numbness, paresthesias Psychiatric: Denies: anxiety, depression, suicidal thoughts, homicidal thoughts Past Medical History - Past Medical History Attestation: Yes The following information was validated with the patient. 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 - General Limitations: no limitations General appearance: alert, in no apparent distress - Head Head exam: atraumatic, normocephalic, normal inspection - Eye Eye exam: Present: PERRL, EOMI, mydriasis - ENT ENT exam: normal exam, normal oropharynx, mucous membranes moist - Neck Neck exam: Present: normal inspection, full ROM, trachea midline. Absent: tenderness - Chest Chest inspection: Present: normal inspection, symmetric chest wall rise - Respiratory Respiratory exam: Present: normal lung sounds bilaterally - Cardiovascular Cardiovascular exam: Present: regular rate, normal rhythm, normal heart sounds - Abdominal Exam Abdominal exam: Present: soft, Non-Tender. Absent: tenderness, distention, guarding, rebound, rigidity - Extremities Exam Extremities exam: Present: normal inspection, full ROM. Absent: tenderness, pedal edema - Neurological Exam Neurological exam: Present: oriented X3, CN II-XII intact, other. Absent: motor sensory deficit - Psychiatric Psychiatric exam: Present: flat affect, other (slurred speech, slow to respond to questions) - Skin Skin exam: Present: warm, dry, intact, normal color Course Course Narrative: Patient mildly tachycardic. Otherwise, the rest of vitals were within normal limits. Patient was drowsy, slurring her words, had dilated pupils. She denied taking any other medication besides her prescribed medications. Has not missed any doses, has not taken too much of any medication that she is prescribed, denies overdose, denies SI and HI. Denies any other drug use. No focal neurologic deficits on exam. CT of the head was obtained and negative for any acute process. Chest x-ray negative for any acute cardiopulmonary process. CBC shows a mild white blood cell count elevation at 13.1. BMP shows SOREN. Patient was given Narcan and had no improvement in her status. Still drowsy on exam but protecting her airway, still oriented x3, just closing her eyes and slurring her speech. Currently waiting on UA and urine tox. Signed out to night team Dr. Hensley and Dr. Marx for further care and dispo. Recommend admission once urine tests come back for AMS. Vital Signs Temperature 98.9 F 08/01/16 16:37 Pulse Rate 112 08/01/16 16:37 Respiratory Rate 18 08/01/16 16:37 Blood Pressure 104/58 08/01/16 16:37 O2 Sat by Pulse Oximetry 97 08/01/16 16:37 Temperature 98.9 F 08/01/16 16:37 Pulse Rate 112 08/01/16 16:37 Respiratory Rate 18 08/01/16 16:37 Blood Pressure 104/58 08/01/16 16:37 O2 Sat by Pulse Oximetry 97 08/01/16 16:37 Oxygen Delivery Oxygen Delivery Room Air Weakness - MDM Narrative Medical decision making narrative: Patient mildly tachycardic. Otherwise, the rest of vitals were within normal limits. Patient was drowsy, slurring her words, had dilated pupils. She denied taking any other medication besides her prescribed medications. Has not missed any doses, has not taken too much of any medication that she is prescribed, denies overdose, denies SI and HI. Denies any other drug use. No focal neurologic deficits on exam. CT of the head was obtained and negative for any acute process. Chest x-ray negative for any acute cardiopulmonary process. CBC shows a mild white blood cell count elevation at 13.1. BMP shows SOREN. Patient was given Narcan and had no improvement in her status. Still drowsy on exam but protecting her airway, still oriented x3, just closing her eyes and slurring her speech. Currently waiting on UA and urine tox. Signed out to night team Dr. Hensley and Dr. Marx for further care and dispo. Recommend admission once urine tests come back for AMS. - Medical Records Medical records reviewed: Yes I reviewed the patient's medical records. - Lab Data Lab results reviewed: Yes I reviewed the patient's lab results. Result diagrams: 08/01/16 17:42 08/01/16 17:42 Lab Results 08/01/16 08/01/16 08/01/16 Range/Units 17:42 17:42 17:42 WBC 13.1 H (4.3-11.1) K/mcL RBC 3.81 L (3.82-4.97) M/mcL Hgb 11.2 L (11.5-15.4) g/dL Hct 35.4 (35.3-44.9) % MCV 92.9 (83.0-100.0) fL MCH 29.4 (28.0-33.3) pg MCHC 31.6 (31.6-35.5) g/dL RDW 13.2 (11.5-14.5) % Plt Count 281 (140-400) K/mcL MPV 9.2 L (9.4-12.4) fL Immature Gran % 0.5 (0-4) % Seg Neutrophils % 93.1 % Lymphocytes % 4.7 % Monocytes % 1.4 % Eosinophils % 0.1 % Basophils % 0.2 % Neutrophils # 12.2 H (1.6-8.9) K/mcL Lymphocytes # 0.6 (0.6-4.6) K/mcL Monocytes # 0.2 (0.0-1.3) K/mcL Eosinophils # 0.0 (0.0-0.6) K/mcL Basophils # 0.0 (0.0-0.2) K/mcL PT 11.2 (9.4-12.1) Seconds INR 1.0 APTT 50.4 H (26.0-36.0) Seconds Sodium 140 (136-145) mEq/L Potassium 4.4 (3.5-4.5) mEq/L Chloride 109 (98-109) mEq/L Carbon Dioxide 19 (19-29) mEq/L BUN 20 (7-20) mg/dL Creatinine 1.16 H (0.57-1.11) mg/dL Est GFR ( Amer) 58 L (> 60) Est GFR (Non-Af Amer) 48 L (> 60) BUN/Creatinine Ratio 17 (6-26) Glucose 139 H (70-99) mg/dL Calculated Osmolality 295 (280-300) Calcium 9.0 (8.6-10.8) mg/dL Total Bilirubin 0.2 (0.2-1.2) mg/dL Direct Bilirubin 0.1 (0.0-0.5) mg/dL Indirect Bilirubin 0.1 (0.0-1.2) mg/dL AST 23 (5-34) Units/L ALT 53 (0-55) Units/L Alkaline Phosphatase 166 H (38-126) Units/L Troponin I (0-0.03) ng/mL Serum Total Protein 6.3 (6.0-8.3) g/dL Albumin 3.2 L (3.5-5.0) g/dL Globulin 3.1 (2.4-3.5) g/dL Albumin/Globulin Ratio 1.0 L (1.1-2.2) Urine Color (Yellow) Urine Clarity (Clear) Urine pH (5.0-8.0) pH Units Ur Specific Milo (1.010-1.025) Urine Protein (Neg-Trace) mg/dL Urine Glucose (UA) (Normal) mg/dL Urine Ketones (Negative) mg/dL Urine Blood (Negative) Urine Nitrite (Negative) Urine Bilirubin (Negative) Urine Urobilinogen (Normal) mg/dL Ur Leukocyte Esterase (Negative) Ur Culture Indicated? (NO) Salicylates (15-30) mg/dL Urine Opiates Screen (Wgsfgb=664) ng/mL Acetaminophen (10-30) mcg/mL Ur Barbiturates Screen (Tysgpk=871) ng/mL Ur Phencyclidine Scrn (Cutoff=25) ng/mL Ur Amphetamines Screen (Uitxgb=5266) ng/mL U Benzodiazepines Scrn (Uxvrws=242) ng/mL Urine Cocaine Screen (Cutoff= 300) ng/mL U Marijuana (THC) Screen (Cutoff = 50) ng/mL Ethyl Alcohol < 10 (0-10) mg/dL 08/01/16 08/01/16 08/01/16 Range/Units 17:42 17:42 18:40 WBC (4.3-11.1) K/mcL RBC (3.82-4.97) M/mcL Hgb (11.5-15.4) g/dL Hct (35.3-44.9) % MCV (83.0-100.0) fL MCH (28.0-33.3) pg MCHC (31.6-35.5) g/dL RDW (11.5-14.5) % Plt Count (140-400) K/mcL MPV (9.4-12.4) fL Immature Gran % (0-4) % Seg Neutrophils % % Lymphocytes % % Monocytes % % Eosinophils % % Basophils % % Neutrophils # (1.6-8.9) K/mcL Lymphocytes # (0.6-4.6) K/mcL Monocytes # (0.0-1.3) K/mcL Eosinophils # (0.0-0.6) K/mcL Basophils # (0.0-0.2) K/mcL PT (9.4-12.1) Seconds INR APTT (26.0-36.0) Seconds Sodium (136-145) mEq/L Potassium (3.5-4.5) mEq/L Chloride (98-109) mEq/L Carbon Dioxide (19-29) mEq/L BUN (7-20) mg/dL Creatinine (0.57-1.11) mg/dL Est GFR ( Amer) (> 60) Est GFR (Non-Af Amer) (> 60) BUN/Creatinine Ratio (6-26) Glucose (70-99) mg/dL Calculated Osmolality (280-300) Calcium (8.6-10.8) mg/dL Total Bilirubin (0.2-1.2) mg/dL Direct Bilirubin (0.0-0.5) mg/dL Indirect Bilirubin (0.0-1.2) mg/dL AST (5-34) Units/L ALT (0-55) Units/L Alkaline Phosphatase (38-126) Units/L Troponin I 0.00 (0-0.03) ng/mL Serum Total Protein (6.0-8.3) g/dL Albumin (3.5-5.0) g/dL Globulin (2.4-3.5) g/dL Albumin/Globulin Ratio (1.1-2.2) Urine Color Yellow (Yellow) Urine Clarity Clear (Clear) Urine pH 6.0 (5.0-8.0) pH Units Ur Specific Milo 1.017 (1.010-1.025) Urine Protein Negative (Neg-Trace) mg/dL Urine Glucose (UA) Normal (Normal) mg/dL Urine Ketones Negative (Negative) mg/dL Urine Blood Negative (Negative) Urine Nitrite Negative (Negative) Urine Bilirubin Negative (Negative) Urine Urobilinogen Normal (Normal) mg/dL Ur Leukocyte Esterase Negative (Negative) Ur Culture Indicated? NO (NO) Salicylates < 5.0 L (15-30) mg/dL Urine Opiates Screen (Qeiqea=437) ng/mL Acetaminophen < 1.0 L (10-30) mcg/mL Ur Barbiturates Screen (Ogfvds=979) ng/mL Ur Phencyclidine Scrn (Cutoff=25) ng/mL Ur Amphetamines Screen (Nefhxc=5960) ng/mL U Benzodiazepines Scrn (Ronydb=980) ng/mL Urine Cocaine Screen (Cutoff= 300) ng/mL U Marijuana (THC) Screen (Cutoff = 50) ng/mL Ethyl Alcohol (0-10) mg/dL 08/01/16 Range/Units 18:40 WBC (4.3-11.1) K/mcL RBC (3.82-4.97) M/mcL Hgb (11.5-15.4) g/dL Hct (35.3-44.9) % MCV (83.0-100.0) fL MCH (28.0-33.3) pg MCHC (31.6-35.5) g/dL RDW (11.5-14.5) % Plt Count (140-400) K/mcL MPV (9.4-12.4) fL Immature Gran % (0-4) % Seg Neutrophils % % Lymphocytes % % Monocytes % % Eosinophils % % Basophils % % Neutrophils # (1.6-8.9) K/mcL Lymphocytes # (0.6-4.6) K/mcL Monocytes # (0.0-1.3) K/mcL Eosinophils # (0.0-0.6) K/mcL Basophils # (0.0-0.2) K/mcL PT (9.4-12.1) Seconds INR APTT (26.0-36.0) Seconds Sodium (136-145) mEq/L Potassium (3.5-4.5) mEq/L Chloride (98-109) mEq/L Carbon Dioxide (19-29) mEq/L BUN (7-20) mg/dL Creatinine (0.57-1.11) mg/dL Est GFR ( Amer) (> 60) Est GFR (Non-Af Amer) (> 60) BUN/Creatinine Ratio (6-26) Glucose (70-99) mg/dL Calculated Osmolality (280-300) Calcium (8.6-10.8) mg/dL Total Bilirubin (0.2-1.2) mg/dL Direct Bilirubin (0.0-0.5) mg/dL Indirect Bilirubin (0.0-1.2) mg/dL AST (5-34) Units/L ALT (0-55) Units/L Alkaline Phosphatase (38-126) Units/L Troponin I (0-0.03) ng/mL Serum Total Protein (6.0-8.3) g/dL Albumin (3.5-5.0) g/dL Globulin (2.4-3.5) g/dL Albumin/Globulin Ratio (1.1-2.2) Urine Color (Yellow) Urine Clarity (Clear) Urine pH (5.0-8.0) pH Units Ur Specific Milo (1.010-1.025) Urine Protein (Neg-Trace) mg/dL Urine Glucose (UA) (Normal) mg/dL Urine Ketones (Negative) mg/dL Urine Blood (Negative) Urine Nitrite (Negative) Urine Bilirubin (Negative) Urine Urobilinogen (Normal) mg/dL Ur Leukocyte Esterase (Negative) Ur Culture Indicated? (NO) Salicylates (15-30) mg/dL Urine Opiates Screen Negative (Pvxzpb=979) ng/mL Acetaminophen (10-30) mcg/mL Ur Barbiturates Screen Positive H (Bktuyw=784) ng/mL Ur Phencyclidine Scrn Negative (Cutoff=25) ng/mL Ur Amphetamines Screen Negative (Bqzdns=9287) ng/mL U Benzodiazepines Scrn Positive H (Nfefrb=069) ng/mL Urine Cocaine Screen Negative (Cutoff= 300) ng/mL U Marijuana (THC) Screen Negative (Cutoff = 50) ng/mL Ethyl Alcohol (0-10) mg/dL - Radiology Data Radiology results reviewed: Yes I reviewed the patient's radiology results. Chest X-Ray 08/01/16 16:40 IMPRESSION: 1. No acute abnormality. D/ / Wilbur Odonnell MD / Wilbur Odonnell MD Interpreting Provider: Wilbur Odonnell MD Head CT 08/01/16 17:21 IMPRESSION: No acute intracranial abnormality. D/ / Jaden Emmanuel MD / Jaden Emmanuel MD Interpreting Provider: Jaden Emmanuel MD Aimee - Aimee Situation: Demographics, MOA Background: Presenting Complaint, Relevant PMH, Meds, & Allergies Assessment: Vital Signs, Course and respsone to treatment, Exam Concerns, Patient/Family Expectation, Pertinant Lab Results, Outstanding Labs Recommendation: Barrier(s) to disposition, Recommendation based on pending studies, treatments, or consults Aimee Report Given to: Dr. Ayden Yu Repor Time: 19:25 Attestation Statement - Attestation Attestation: I examined this patient and my medical decision-making was reviewed with the SUB ASSEMBLY TEAM WORKER/PA/Advanced Practice Nurse/Resident Physician. I agree with the documented findings, disposition and treatment plan as described except to the extent set forth below. Patient in the emergency department with altered mental status. Patient states she feels weak. States she is dropping things. States she broke a [employer] coffee mug today. Patient apparently had a syncopal episode in the waiting room. On examination she is awake alert. Slurring her words. Drowsy. Answers questions appropriately when awake. Moves all extremities symmetrically. Equal cardiac monitor strength. Plan. Patient given Narcan with no result. Altered mental status workup including head CT. Re-evaluate.
[2016-08-01 17:53] LABS: Prothrombin Time 11.2 Seconds (9.4-12.1)
[2016-08-01 17:56] LABS: Activated Partial Thrombo Time 50.4 Seconds (26.0-36.0)
[2016-08-01 18:02] LABS: Alanine Aminotransferase 53 Units/L (0-55); Albumin 3.2 g/dL (3.5-5.0); Alkaline Phosphatase 166 Units/L (38-126); Aspartate Amino Transferase 23 Units/L (5-34); BUN/Creatinine Ratio 17 (6-26); Bilirubin,Direct 0.1 mg/dL (0.0-0.5); Bilirubin,Indirect 0.1 mg/dL (0.0-1.2); Bilirubin,Total 0.2 mg/dL (0.2-1.2); Blood Urea Nitrogen 20 mg/dL (7-20); Carbon Dioxide 19 mEq/L (19-29); Chloride 109 mEq/L (98-109); Globulin 3.1 g/dL (2.4-3.5); Glucose 139 mg/dL (70-99); Osmolality,Calculated 295 (280-300); Potassium 4.4 mEq/L (3.5-4.5); Sodium 140 mEq/L (136-145); Total Protein 6.3 g/dL (6.0-8.3); eGFR For African Americans 58 (> 60); eGFR For Non-African Americans 48 (> 60)
[2016-08-01 18:03] LABS: Ethanol < 10 mg/dL (0-10)
[2016-08-01 18:51] LABS: Bilirubin,Urine Negative (Negative); Blood,Urine Negative (Negative); Clarity,Urine Clear (Clear); Color,Urine Yellow (Yellow); Glucose,Urine (UA) Normal (Normal); Ketones,Urine Negative (Negative); Leukocyte Esterase,Urine Negative (Negative); Nitrite,Urine Negative (Negative); Protein,Urine Negative (Neg-Trace); Specific Gravity,Urine 1.017 (1.010-1.025); Urobilinogen,Urine Normal (Normal)
[2016-08-01 19:07] LABS: Amphetamine Screen,Urine Negative ng/mL (Cutoff=1000); Barbiturate Screen,Urine Positive ng/mL (Cutoff=200); Benzodiazepines Screen,Urine Positive ng/mL (Cutoff=200); Cannabinoid Screen,Urine Negative ng/mL (Cutoff = 50); Cocaine Screen,Urine Negative ng/mL (Cutoff= 300); Opiate Screen,Urine Negative ng/mL (Cutoff=300); Phencyclidine Screen,Urine Negative ng/mL (Cutoff=25)
[2016-08-01 19:07] LABS: Acetaminophen < 1.0 mcg/mL (10-30); Salicylate < 5.0 mg/dL (15-30)
--- NOTE | 2016-08-01 19:39 | Emergency Department Note ---
Disposition Clinical Impression: Slurred speech, Mydriasis, SOREN (acute kidney injury) Leukocytosis Qualifiers: Leukocytosis type: unspecified Qualified Code(s): D72.829 - Elevated white blood cell count, unspecified Disposition: Admitted As Inpatient Condition: Undetermined Time of Disposition: 20:36 Weakness HPI - General Chief complaint: ED Weakness Stated complaint: Generalized weakness Time Seen by Provider: 08/01/16 17:23 Source: patient, EMS Mode of arrival: ambulatory Limitations: no limitations Nursing Notes Reviewed: Yes Vital Signs Reviewed: Yes - History of Present Illness HPI Narrative: 55-year-old female with extensive history of migraines arrives [facility] emergency department with altered mentation and weakness is generalized that started today. The patient states this patient woke up and was not feeling well. The patient states that since then she has felt slightly shaky and not quite herself. Workup here in the emergency department by the day team demonstrates a leukocytosis, and a chaotic. The patient is on gabapentin as well as numerous pain medications. This is likely a metabolic etiology of the patient's symptoms given the patient's history of present illness. She remains altered and weak throughout with a muscle strength in bilateral lower extremities of 3 out of 5. She has no diminished sensation. She does state that she has a headache. The patient is afebrile and is not meningitic. Pt Subjective Complaint: generalized weakness/fatigue Onset (ago): unknown Duration: constant Location: generalized Migration: none Pain Severity: mild (headache) Pain Scale: 3 Improves with: none Worsens with: none Associated symptoms: Reports: denies other symptoms - Related Data Home Medications Medication Instructions Recorded Confirmed Paroxetine [Paxil] 60 mg PO HS 04/01/15 08/01/16 Buspirone HCl [Buspar] 10 mg PO BID 09/12/15 08/01/16 Chlorpromazine HCl 300 mg PO HS 04/18/16 08/01/16 Trihexyphenidyl [Artane] 2 mg PO TID 04/18/16 08/01/16 Chlorpromazine HCl 100 mg PO QAM 08/01/16 08/01/16 Diazepam [Valium] 10 mg PO TID 08/01/16 08/01/16 Gabapentin [Neurontin] 600 mg PO BID 08/01/16 08/01/16 Naproxen [EC-Naprosyn] 375 mg PO BID 08/01/16 08/01/16 Previous Rx's Medication Instructions Recorded Albuterol Sulfate [Albuterol 2 puff IH Q4HR PRN 30 Days 05/31/16 Inhaler] Budesonide/Formoterol 160/4.5 2 puff IH BIDR 30 Days 05/31/16 [Symbicort 160/4.5] Allergies Allergy/AdvReac Type Severity Reaction Status Date / Time metoclopramide [From Reglan] Allergy Mild Itching Verified 07/08/16 19:43 tramadol Allergy Mild Itching Verified 07/08/16 19:43 amitriptyline Allergy Itching Verified 07/08/16 19:43 Sulfa (Sulfonamide Allergy See Verified 07/08/16 19:43 Antibiotics) Comments sulfamethoxazole Allergy See Verified 07/08/16 19:43 [From Bactrim] Comments trimethoprim [From Bactrim] Allergy See Verified 07/08/16 19:43 Comments lorazepam [From Ativan] AdvReac Mild Anxiety Verified 07/08/16 19:43 benztropine [From Cogentin] AdvReac See Verified 07/08/16 19:43 Comments ciprofloxacin [From Cipro] AdvReac See Verified 07/08/16 19:43 Comments onabotulinumtoxinA AdvReac See Verified 07/08/16 19:43 [From Botox] Comments sumatriptan [From Imitrex] AdvReac Agitated Verified 07/08/16 19:43 topiramate [From Topamax] AdvReac See Verified 07/08/16 19:43 Comments All systems ED: reviewed and negative except as stated. Constitutional: Denies: fever Cardiovascular: Denies: chest pain, palpitations, dyspnea on exertion Respiratory: Denies: cough, dyspnea, wheezes Gastrointestinal: Denies: abdominal pain, nausea, vomiting, diarrhea Genitourinary: Denies: urgency, dysuria Musculoskeletal: Denies: back pain Integumentary: Denies: rash Neurological: Reports: weakness (Generalized). Denies: headache, numbness, paresthesias Psychiatric: Denies: anxiety, depression, suicidal thoughts, homicidal thoughts Past Medical History - Past Medical History Attestation: Yes The following information was validated with the patient. Source: patient Medical history: Reports: migraine, other Surgical history: Reports: cholecystectomy, herniorrhaphy, hysterectomy Psychiatric history: Reports: anxiety, bipolar, depression GUEST RELATIONS RECEPTIONIST history: Reports: no GUEST RELATIONS RECEPTIONIST history, other - Social History Smoking Status: Former smoker Smokeless Tobacco Status: No Alcohol use: Reports: none Drug use: Reports: none Physical Exam - General Limitations: no limitations General appearance: alert, in no apparent distress - Head Head exam: atraumatic, normocephalic, normal inspection - Eye Eye exam: Present: normal appearance, EOMI, mydriasis - ENT ENT exam: normal exam, normal oropharynx, mucous membranes moist - Neck Neck exam: Present: normal inspection, full ROM, trachea midline - Chest Chest inspection: Present: normal inspection, symmetric chest wall rise - Respiratory Respiratory exam: Present: normal lung sounds bilaterally - Cardiovascular Cardiovascular exam: Present: regular rate, normal rhythm, normal heart sounds - Abdominal Exam Abdominal exam: Present: soft, Non-Tender. Absent: tenderness, distention, guarding, rebound, rigidity - Extremities Exam Extremities exam: Present: normal inspection, full ROM. Absent: tenderness, pedal edema - Back Exam Back exam: Present: normal inspection, full ROM. Absent: tenderness - Neurological Exam Neurological exam: Present: alert, oriented X3, CN II-XII intact, reflexes normal - Expanded Neurological Exam Patient oriented to: Present: person, place, time Speech: Present: fluid speech Cranial nerves: EOM function (II, III, IV, ): Normal, facial sensation (V): Normal, facial palsy (VII): Normal, gag reflex (IX): Normal, spinal accessory function (XI): Normal, tongue deviation (XII): Normal Motor strength - LUE: 3/5 Motor strength - RUE: 3/5 Motor strength - LLE: 3/5 Motor strength - RLE: 3/5 Upper motor neuron exam: ran neglect: Absent bilaterally, pronator drift: Absent bilaterally, sensory extinction: Absent bilaterally Sensory exam upper extremity: light touch: Normal Sensory exam lower extremity: light touch: Normal DTR: bicep (L): 2+, bicep (R): 2+, patellar (L): 2+, patellar (R): 2+, Achilles tendon (L): 2+, Achilles tendon (R): 2+ Coma Scale Eye Opening: Spontaneous Coma Scale Motor Response: Obeys Commands Coma Scale Verbal Response: Oriented Coma Scale Total: 15 - Psychiatric Psychiatric exam: Present: flat affect - Skin Skin exam: Present: warm, dry, intact, normal color Course Vital Signs Temperature 98.9 F 08/01/16 16:37 Pulse Rate 112 08/01/16 16:37 Respiratory Rate 18 08/01/16 16:37 Blood Pressure 104/58 08/01/16 16:37 O2 Sat by Pulse Oximetry 97 08/01/16 16:37 Temperature 97.5 F L 08/01/16 22:14 Pulse Rate 71 08/01/16 22:14 Respiratory Rate 16 08/01/16 22:14 Blood Pressure 116/68 08/01/16 22:14 O2 Sat by Pulse Oximetry 96 08/01/16 22:14 Oxygen Delivery Oxygen Delivery Room Air Weakness - MDM Narrative Medical decision making narrative: The patient appears to have a metabolic process of her symptoms. We will admit the patient to the hospital for generalized weakness. Accepted by Dr. Plummer. - Medical Records Medical records reviewed: Yes I reviewed the patient's medical records. - Lab Data Lab results reviewed: Yes I reviewed the patient's lab results. Result diagrams: 08/02/16 03:41 08/02/16 03:41 Lab Results 08/01/16 08/01/16 08/01/16 Range/Units 17:42 17:42 17:42 WBC 13.1 H (4.3-11.1) K/mcL RBC 3.81 L (3.82-4.97) M/mcL Hgb 11.2 L (11.5-15.4) g/dL Hct 35.4 (35.3-44.9) % MCV 92.9 (83.0-100.0) fL MCH 29.4 (28.0-33.3) pg MCHC 31.6 (31.6-35.5) g/dL RDW 13.2 (11.5-14.5) % Plt Count 281 (140-400) K/mcL MPV 9.2 L (9.4-12.4) fL Immature Gran % 0.5 (0-4) % Seg Neutrophils % 93.1 % Lymphocytes % 4.7 % Monocytes % 1.4 % Eosinophils % 0.1 % Basophils % 0.2 % Neutrophils # 12.2 H (1.6-8.9) K/mcL Lymphocytes # 0.6 (0.6-4.6) K/mcL Monocytes # 0.2 (0.0-1.3) K/mcL Eosinophils # 0.0 (0.0-0.6) K/mcL Basophils # 0.0 (0.0-0.2) K/mcL PT 11.2 (9.4-12.1) Seconds INR 1.0 APTT 50.4 H (26.0-36.0) Seconds Sodium 140 (136-145) mEq/L Potassium 4.4 (3.5-4.5) mEq/L Chloride 109 (98-109) mEq/L Carbon Dioxide 19 (19-29) mEq/L BUN 20 (7-20) mg/dL Creatinine 1.16 H (0.57-1.11) mg/dL Est GFR ( Amer) 58 L (> 60) Est GFR (Non-Af Amer) 48 L (> 60) BUN/Creatinine Ratio 17 (6-26) Glucose 139 H (70-99) mg/dL Calculated Osmolality 295 (280-300) Calcium 9.0 (8.6-10.8) mg/dL Total Bilirubin 0.2 (0.2-1.2) mg/dL Direct Bilirubin 0.1 (0.0-0.5) mg/dL Indirect Bilirubin 0.1 (0.0-1.2) mg/dL AST 23 (5-34) Units/L ALT 53 (0-55) Units/L Alkaline Phosphatase 166 H (38-126) Units/L Troponin I (0-0.03) ng/mL Serum Total Protein 6.3 (6.0-8.3) g/dL Albumin 3.2 L (3.5-5.0) g/dL Globulin 3.1 (2.4-3.5) g/dL Albumin/Globulin Ratio 1.0 L (1.1-2.2) Urine Color (Yellow) Urine Clarity (Clear) Urine pH (5.0-8.0) pH Units Ur Specific Warren (1.010-1.025) Urine Protein (Neg-Trace) mg/dL Urine Glucose (UA) (Normal) mg/dL Urine Ketones (Negative) mg/dL Urine Blood (Negative) Urine Nitrite (Negative) Urine Bilirubin (Negative) Urine Urobilinogen (Normal) mg/dL Ur Leukocyte Esterase (Negative) Ur Culture Indicated? (NO) Salicylates (15-30) mg/dL Urine Opiates Screen (Bzgsnp=327) ng/mL Acetaminophen (10-30) mcg/mL Ur Barbiturates Screen (Prajeh=234) ng/mL Ur Phencyclidine Scrn (Cutoff=25) ng/mL Ur Amphetamines Screen (Krbbkj=5063) ng/mL U Benzodiazepines Scrn (Qiueni=609) ng/mL Urine Cocaine Screen (Cutoff= 300) ng/mL U Marijuana (THC) Screen (Cutoff = 50) ng/mL Ethyl Alcohol < 10 (0-10) mg/dL 08/01/16 08/01/16 08/01/16 Range/Units 17:42 17:42 18:40 WBC (4.3-11.1) K/mcL RBC (3.82-4.97) M/mcL Hgb (11.5-15.4) g/dL Hct (35.3-44.9) % MCV (83.0-100.0) fL MCH (28.0-33.3) pg MCHC (31.6-35.5) g/dL RDW (11.5-14.5) % Plt Count (140-400) K/mcL MPV (9.4-12.4) fL Immature Gran % (0-4) % Seg Neutrophils % % Lymphocytes % % Monocytes % % Eosinophils % % Basophils % % Neutrophils # (1.6-8.9) K/mcL Lymphocytes # (0.6-4.6) K/mcL Monocytes # (0.0-1.3) K/mcL Eosinophils # (0.0-0.6) K/mcL Basophils # (0.0-0.2) K/mcL PT (9.4-12.1) Seconds INR APTT (26.0-36.0) Seconds Sodium (136-145) mEq/L Potassium (3.5-4.5) mEq/L Chloride (98-109) mEq/L Carbon Dioxide (19-29) mEq/L BUN (7-20) mg/dL Creatinine (0.57-1.11) mg/dL Est GFR ( Amer) (> 60) Est GFR (Non-Af Amer) (> 60) BUN/Creatinine Ratio (6-26) Glucose (70-99) mg/dL Calculated Osmolality (280-300) Calcium (8.6-10.8) mg/dL Total Bilirubin (0.2-1.2) mg/dL Direct Bilirubin (0.0-0.5) mg/dL Indirect Bilirubin (0.0-1.2) mg/dL AST (5-34) Units/L ALT (0-55) Units/L Alkaline Phosphatase (38-126) Units/L Troponin I 0.00 (0-0.03) ng/mL Serum Total Protein (6.0-8.3) g/dL Albumin (3.5-5.0) g/dL Globulin (2.4-3.5) g/dL Albumin/Globulin Ratio (1.1-2.2) Urine Color Yellow (Yellow) Urine Clarity Clear (Clear) Urine pH 6.0 (5.0-8.0) pH Units Ur Specific Warren 1.017 (1.010-1.025) Urine Protein Negative (Neg-Trace) mg/dL Urine Glucose (UA) Normal (Normal) mg/dL Urine Ketones Negative (Negative) mg/dL Urine Blood Negative (Negative) Urine Nitrite Negative (Negative) Urine Bilirubin Negative (Negative) Urine Urobilinogen Normal (Normal) mg/dL Ur Leukocyte Esterase Negative (Negative) Ur Culture Indicated? NO (NO) Salicylates < 5.0 L (15-30) mg/dL Urine Opiates Screen (Tebpnd=768) ng/mL Acetaminophen < 1.0 L (10-30) mcg/mL Ur Barbiturates Screen (Qhrdbg=229) ng/mL Ur Phencyclidine Scrn (Cutoff=25) ng/mL Ur Amphetamines Screen (Kcmlvc=2709) ng/mL U Benzodiazepines Scrn (Dprlbm=885) ng/mL Urine Cocaine Screen (Cutoff= 300) ng/mL U Marijuana (THC) Screen (Cutoff = 50) ng/mL Ethyl Alcohol (0-10) mg/dL 08/01/16 Range/Units 18:40 WBC (4.3-11.1) K/mcL RBC (3.82-4.97) M/mcL Hgb (11.5-15.4) g/dL Hct (35.3-44.9) % MCV (83.0-100.0) fL MCH (28.0-33.3) pg MCHC (31.6-35.5) g/dL RDW (11.5-14.5) % Plt Count (140-400) K/mcL MPV (9.4-12.4) fL Immature Gran % (0-4) % Seg Neutrophils % % Lymphocytes % % Monocytes % % Eosinophils % % Basophils % % Neutrophils # (1.6-8.9) K/mcL Lymphocytes # (0.6-4.6) K/mcL Monocytes # (0.0-1.3) K/mcL Eosinophils # (0.0-0.6) K/mcL Basophils # (0.0-0.2) K/mcL PT (9.4-12.1) Seconds INR APTT (26.0-36.0) Seconds Sodium (136-145) mEq/L Potassium (3.5-4.5) mEq/L Chloride (98-109) mEq/L Carbon Dioxide (19-29) mEq/L BUN (7-20) mg/dL Creatinine (0.57-1.11) mg/dL Est GFR ( Amer) (> 60) Est GFR (Non-Af Amer) (> 60) BUN/Creatinine Ratio (6-26) Glucose (70-99) mg/dL Calculated Osmolality (280-300) Calcium (8.6-10.8) mg/dL Total Bilirubin (0.2-1.2) mg/dL Direct Bilirubin (0.0-0.5) mg/dL Indirect Bilirubin (0.0-1.2) mg/dL AST (5-34) Units/L ALT (0-55) Units/L Alkaline Phosphatase (38-126) Units/L Troponin I (0-0.03) ng/mL Serum Total Protein (6.0-8.3) g/dL Albumin (3.5-5.0) g/dL Globulin (2.4-3.5) g/dL Albumin/Globulin Ratio (1.1-2.2) Urine Color (Yellow) Urine Clarity (Clear) Urine pH (5.0-8.0) pH Units Ur Specific Warren (1.010-1.025) Urine Protein (Neg-Trace) mg/dL Urine Glucose (UA) (Normal) mg/dL Urine Ketones (Negative) mg/dL Urine Blood (Negative) Urine Nitrite (Negative) Urine Bilirubin (Negative) Urine Urobilinogen (Normal) mg/dL Ur Leukocyte Esterase (Negative) Ur Culture Indicated? (NO) Salicylates (15-30) mg/dL Urine Opiates Screen Negative (Ypjarr=209) ng/mL Acetaminophen (10-30) mcg/mL Ur Barbiturates Screen Positive H (Mltktw=685) ng/mL Ur Phencyclidine Scrn Negative (Cutoff=25) ng/mL Ur Amphetamines Screen Negative (Gmoxgn=2962) ng/mL U Benzodiazepines Scrn Positive H (Cbfolj=395) ng/mL Urine Cocaine Screen Negative (Cutoff= 300) ng/mL U Marijuana (THC) Screen Negative (Cutoff = 50) ng/mL Ethyl Alcohol (0-10) mg/dL - Radiology Data Radiology results reviewed: Yes I reviewed the patient's radiology results. Attestation Statement - Attestation Attestation: Dr Marx note: Pt seen in conjunction w/ resident Dr Hensley; Please see his charting for complete documentation; I spent face to face time w/the pt and agree w/ the pt' s treatment and disposition; CT results reviewed; sx onset this a.m; pt pleasant/conversive/oriented @ time of admission;
[2016-08-02] MEDS ORDERED: Naloxone 0.4 MG/ML INJ IVP PRN (00:34)
--- NOTE | 2016-08-02 00:39 | Internal Med History&Physical ---
Date of Encounter: 08/02/16 Time of Encounter: 00:15 Assessment and Plan (1) Encephalopathy Current visit: Yes Status: Acute Likely secondary to medications. Urine drug screen is positive for barbiturates , benzos and opiates. ABG shows normal evidence of proximal ureter retention. Will obtain MRI of the brain. Consider Neurology consult. (2) Slurred speech Current visit: Yes Status: Acute CT head negative. Will obtain MRI of the head. Speech therapy consult (3) SOREN (acute kidney injury) Current visit: Yes Status: Acute Possibly pre-renal due to poor oral intake. Treat with IV fluids (4) Leukocytosis Current visit: Yes Status: Acute UA nad CXR are negative. Pt is afebrile. Monitor. (5) Chronic respiratory failure Current visit: Yes Status: Chronic Continue Supplemental O2 Qualifiers: Respiratory failure complication: hypoxia Qualified Code(s): J96.11 - Chronic respiratory failure with hypoxia Internal Medicine - H&P: HPI Chief complaint: Generalized weakness Admitted From: Emergency Dept Plans for Post Hospital Care: Home History of present illness: Ms. Montoya is a 55 year old female With past medical history significant for bipolar disorder, migraines, interstitial lung disease, chronic respiratory failure home oxygen. Patient is not responsive to verbal commands and was not able to give details. I have reviewed the ER note and discussed with ER physician, to obtain clinical details. She apparently presented to the emergency department with generalized weakness and . She was apparently feeling weak and tired and could not use her upper extremities. She reportedly had slurred speech in the emergency department. She had CT scan of the head in the ER, which was reported negative for acute intracranial abnormality. She was given Narcan, without significant change. urine drug screen was positive for barbiturates and benzos. She is admitted to the hospitalist service for further management. At my initial evaluation, patient was not responsive to verbal stimuli. She was responsive to painful stimuli. She is able to maintain airway. She has not able to give clinical details. On my re-evaluation, pt was more alert, but confused and had slurred speech. Again, she is not able to give clinical details or able to co-operate for clinical exam. Review of systems, social history, family history could not be verified with the patient due to mental status changes. Past Med Surg Social Fam HX - Past Medical History Medical history: migraine, other Psychiatric history: anxiety, bipolar, depression - Past Surgical History Surgical History: cholecystectomy, herniorrhaphy, hysterectomy - Social History Smoking Status: Former smoker Smokeless Tobacco Status: No Alcohol use: none Drug use: none - Family History Father Living Status: Still Living Hx Family Cardiac Disorders: Yes Mother Family Member Ethnicity: Non- Living Status: Still Living Hx Family Cardiac Disorders: No Hx Family Respiratory Disorders: Yes (short of breath) Hx Family Cancer: No Hx Family GI Disorders: No Hx Family Endocrine Disorder: No Hx Family Neuromuscular Disorders: No Hx Family Neurologic Disorders: No Hx Family HEENT Disorders: No Hx Family Autoimmune Disorders: Yes (hyperthyroid) Grandfather Living Status: Hx Family Cardiac Disorders: Yes Internal Medicine - H&P: Meds Paroxetine [Paxil] 60 mg PO HS 04/01/15 [History] Buspirone HCl [Buspar] 10 mg PO BID 09/12/15 [History] Chlorpromazine HCl 300 mg PO HS 04/18/16 [History] Trihexyphenidyl [Artane] 2 mg PO TID 04/18/16 [History] Albuterol Sulfate [Albuterol Inhaler] 2 puff IH Q4HR PRN 30 Days 05/31/16 [Rx] Budesonide/Formoterol 160/4.5 [Symbicort 160/4.5] 2 puff IH BIDR 30 Days [Rx] Chlorpromazine HCl 100 mg PO QAM 08/01/16 [History] Diazepam [Valium] 10 mg PO TID 08/01/16 [History] Gabapentin [Neurontin] 600 mg PO BID 08/01/16 [History] Naproxen [EC-Naprosyn] 375 mg PO BID 08/01/16 [History] Allergies metoclopramide [From Reglan] Allergy (Mild, Verified 07/08/16 19:43) Itching tramadol Allergy (Mild, Verified 07/08/16 19:43) Itching amitriptyline Allergy (Verified 07/08/16 19:43) Itching Sulfa (Sulfonamide Antibiotics) Allergy (Verified 07/08/16 19:43) See Comments sulfamethoxazole [From Bactrim] Allergy (Verified 07/08/16 19:43) See Comments trimethoprim [From Bactrim] Allergy (Verified 07/08/16 19:43) See Comments blisters on hands and feet lorazepam [From Ativan] Adverse Reaction (Mild, Verified 07/08/16 19:43) Anxiety benztropine [From Cogentin] Adverse Reaction (Verified 07/08/16 19:43) See Comments patient states it causes sores on tongue ciprofloxacin [From Cipro] Adverse Reaction (Verified 07/08/16 19:43) See Comments BLISTERS TO HANDS AND FEET onabotulinumtoxinA [From Botox] Adverse Reaction (Verified 07/08/16 19:43) See Comments patient states it causes neck pain sumatriptan [From Imitrex] Adverse Reaction (Verified 07/08/16 19:43) Agitated topiramate [From Topamax] Adverse Reaction (Verified 07/08/16 19:43) See Comments patient states it makes her hyper ROS unobtainable: due to mental status - Constitutional Vitals: Temp Pulse Resp BP Pulse Ox 97.5 F L 71 16 116/68 96 08/01/16 22:14 08/01/16 22:14 08/01/16 22:14 08/01/16 22:14 08/01/16 22:14 Exam: General: Confused. Not in acute pain HEENT: No conjunctival palor or scleral icterus Neck: No obvious neck swellings. No neck stiffness Lungs: Clear to auscultation Cardiac: Regular rate and rhythm. No significant murmurs Abdomen: Soft, non tender. Bowel sounds present Genitourinary: No an catheter Neurological: Slurred speech. Not co-operative for evaluation. Plantars: no response. not able to elicit DTRs Psych: Confused Extremities: no significant leg edema Skin: No generalized rash Internal Med - H&P Results - Labs CBC & Chem 7: 08/02/16 03:41 08/02/16 03:41 - Impressions ITS Impressions Chest X-Ray 08/01/16 16:40 IMPRESSION: 1. No acute abnormality. D/ / Wilbur Odonnell MD / Wilbur Odonnell MD Interpreting Provider: Wilbur Odonnell MD Head CT 04/06/17 17:21 IMPRESSION: No acute intracranial abnormality. D/ / Jaden Emmanuel MD / Jaden Emmanuel MD Interpreting Provider: Jaden Emmanuel MD
[2016-08-02] MEDS: 0.9 % Sodium Chloride 1,000 ML IVC SCH ×2 (00:58→19:18)
[2016-08-02 01:02] LABS: ABG Base Excess 2.4 mEq/L (-2.0 to 3.0); ABG HCO3 27.2 mEQ/L (21-27); ABG Oxygen Saturation 94 % (95-98); ABG PCO2 42 mmHg (35-45); ABG PH 7.42 pH Units (7.32-7.45); ABG PO2 71 mmHg (85-104); ABG TCO2 28.5 mEq/L (20-26); Blood Gas FiO2 21 %
[2016-08-02 03:59] LABS: Basophils % 0.3 %; Eosinophils # 0.1 K/mcL (0.0-0.6); Hematocrit 36.2 % (35.3-44.9); Hemoglobin 11.5 g/dL (11.5-15.4); Immature Granulocytes % 0.5 % (0-4); Lymphocytes # 2.4 K/mcL (0.6-4.6); Lymphocytes % 17.8 %; Mean Corpuscular HGB Conc 31.8 g/dL (31.6-35.5); Mean Corpuscular Volume 91.4 fL (83.0-100.0); Mean Platelet Volume 9.7 fL (9.4-12.4); Monocytes # 0.6 K/mcL (0.0-1.3); Monocytes % 4.5 %; Neutrophils # 10.1 K/mcL (1.6-8.9); Platelet Count 270 K/mcL (140-400); Red Blood Count 3.96 M/mcL (3.82-4.97); Segmented Neutrophils % 75.9 %
[2016-08-02 04:17] LABS: BUN/Creatinine Ratio 23 (6-26); Blood Urea Nitrogen 19 mg/dL (7-20); C-Reactive Protein 6 mg/L (Less than 5); Calcium 8.6 mg/dL (8.6-10.8); Carbon Dioxide 23 mEq/L (19-29); Chloride 108 mEq/L (98-109); Glucose 95 mg/dL (70-99); Magnesium 2.3 mg/dL (1.6-2.6); Osmolality,Calculated 292 (280-300); Potassium 4.1 mEq/L (3.5-4.5); Sodium 140 mEq/L (136-145); eGFR For African Americans > 60 (> 60); eGFR For Non-African Americans > 60 (> 60)
[2016-08-02 06:38] LABS: Thyroid Stimulating Hormone 0.909 mcIU/mL (0.350-4.840)
[2016-08-02] MEDS: Budesonide/Formoterol 160/4.5 MDI IH SCH ×2 (08:26→20:06)
--- NOTE | 2016-08-02 13:19 | Event Note ---
Date of Encounter: 08/02/16 Time of Encounter: 12:45 Patient seen and examined at bedside. Able to communicate well without any reported slurred speech. As per nursing staff, patient woke up earlier this morning confused and didn't know why she was at the hospital and stated that she may have taken too many of her medications. Patient's altered mental status was likely secondary to polypharmacy (noted to be on Buspirone, Diazepam, Gabapentin, Trihexyphenidyl, and Paroxetine). Reports of taking all these medications at home. At this time, reports of feeling weak but states she feels better from yesterday. At this time she is AAO x 3 and recalls the preceding events to her hospitalization. Given slurred speech and weakness ,MRI head was ordered to rule out any intracranial pathology. Will obtain MRI. continue to hold all sedative agents at this time. Closely monitor vitals and respiratory status. Speech therapy eval noted, started on regular diet continue gentle IV fluids. will obtain PT eval If clinically stable, likely d/c in am
--- NOTE | 2016-08-02 16:22 | ENT - Consult Note ---
Date of Encounter: 08/02/16 Time of Encounter: 16:19 Assessment and Plan (1) Mastoiditis Current Visit: Yes Status: Ruled-out MRI with left > right patchy mastoid thickening but normal CT of mastoid and middle ear (much better examination of bone/ears) and Ms. Montoya has no ear complaints today. no sign of ear infection, mastoiditis, sinus disease, throat infections clinically or radiographically to explain the elevated WBC. No treatment needed. Will sign off. Qualifiers: Laterality: bilateral Qualified Code(s): H70.93 - Unspecified mastoiditis, bilateral History of Present Illness Consult date: 08/02/16 Reason for ENT Consult: other (Mastoiditis) Requesting physician: Brigid Parker History of present illness: Ms. Montoya is seen today for evaluation for possible mastoiditis. Admitted yesterday for altered mental status and thought to be secondary to polypharmacy. Had MRI and noted to have some left > right patchy effusion in mastoid today. CT of head yesterday evening showed normal mastoids, normal sinuses and normal middle ear. She was noted to have an elevated WBC, 13,000. The patient mentally is better but still has trouble remembering. No ear pain, ear drainage, hearing loss, ringing, vertigo or h/o ear surgery or trauma. Does have a headache and states ? h/o migraines. Did see her primary care doctor two weeks ago for popping of the ears but that has resolved. Past Med Surg Social Fam HX - Past Medical History Medical history: migraine, other Psychiatric history: anxiety, bipolar, depression - Past Surgical History Surgical History: cholecystectomy, herniorrhaphy, hysterectomy - Social History Smoking Status: Former smoker Smokeless Tobacco Status: No Alcohol use: none Drug use: none - Family History Father Living Status: Still Living Hx Family Cardiac Disorders: Yes Mother Family Member Ethnicity: Non- Living Status: Still Living Hx Family Cardiac Disorders: No Hx Family Respiratory Disorders: Yes (short of breath) Hx Family Cancer: No Hx Family GI Disorders: No Hx Family Endocrine Disorder: No Hx Family Neuromuscular Disorders: No Hx Family Neurologic Disorders: No Hx Family HEENT Disorders: No Hx Family Autoimmune Disorders: Yes (hyperthyroid) Grandfather Living Status: Hx Family Cardiac Disorders: Yes Medications and Allergies Paroxetine [Paxil] 60 mg PO HS 04/01/15 [History] Buspirone HCl [Buspar] 10 mg PO BID 09/12/15 [History] Chlorpromazine HCl 300 mg PO HS 04/18/16 [History] Trihexyphenidyl [Artane] 2 mg PO TID 04/18/16 [History] Albuterol Sulfate [Albuterol Inhaler] 2 puff IH Q4HR PRN 30 Days 05/31/16 [Rx] Budesonide/Formoterol 160/4.5 [Symbicort 160/4.5] 2 puff IH BIDR 30 Days [Rx] Chlorpromazine HCl 100 mg PO QAM 08/01/16 [History] Diazepam [Valium] 10 mg PO TID 08/01/16 [History] Gabapentin [Neurontin] 600 mg PO BID 08/01/16 [History] Naproxen [EC-Naprosyn] 375 mg PO BID 08/01/16 [History] Allergies metoclopramide [From Reglan] Allergy (Mild, Verified 07/08/16 19:43) Itching tramadol Allergy (Mild, Verified 07/08/16 19:43) Itching amitriptyline Allergy (Verified 07/08/16 19:43) Itching Sulfa (Sulfonamide Antibiotics) Allergy (Verified 07/08/16 19:43) See Comments sulfamethoxazole [From Bactrim] Allergy (Verified 07/08/16 19:43) See Comments trimethoprim [From Bactrim] Allergy (Verified 07/08/16 19:43) See Comments blisters on hands and feet lorazepam [From Ativan] Adverse Reaction (Mild, Verified 07/08/16 19:43) Anxiety benztropine [From Cogentin] Adverse Reaction (Verified 07/08/16 19:43) See Comments patient states it causes sores on tongue ciprofloxacin [From Cipro] Adverse Reaction (Verified 07/08/16 19:43) See Comments BLISTERS TO HANDS AND FEET onabotulinumtoxinA [From Botox] Adverse Reaction (Verified 07/08/16 19:43) See Comments patient states it causes neck pain sumatriptan [From Imitrex] Adverse Reaction (Verified 07/08/16 19:43) Agitated topiramate [From Topamax] Adverse Reaction (Verified 07/08/16 19:43) See Comments patient states it makes her hyper ENT Exam Initial Vital Signs Temp Pulse Resp BP Pulse Ox 98.9 F 112 18 104/58 97 08/01/16 16:37 08/01/16 16:37 08/01/16 16:37 08/01/16 16:37 08/01/16 16:37 Awake, alert, pleasant female in NAd voice and speech clear , no facial or neck asymmetry Auricles WNL, no skin lesions or deformities. No mastoid pain, swelling, induration or erythema EAC clear bilaterally and TM's intact, well aerated, no ALEIDA or infection Nose no deformity or skin lesoins. Mild crusting anteriorly Septum straight and no polyps, pus or lesions seen OC/OP normal mucosa and dentition. no lesions or asymmetries 1+ tonsils and no exudate or erythema Pharynx symmetrical and no lesions or asymmetries Neck supple, no LAD or neck masses, no thyroid or salivary gland lesions CN's II-XII grossly intact and symmetrical Exam Initial Vital Signs Temp Pulse Resp BP Pulse Ox 98.9 F 112 18 104/58 97 08/01/16 16:37 08/01/16 16:37 08/01/16 16:37 08/01/16 16:37 08/01/16 16:37 Results - Labs 08/02/16 03:41 08/02/16 03:41 Abnormal lab results WBC 13.3 K/mcL (4.3-11.1) H 08/02/16 03:41 Neutrophils # 10.1 K/mcL (1.6-8.9) H 08/02/16 03:41 APTT 50.4 Seconds (26.0-36.0) H 08/01/16 17:42 ABG pO2 71 mmHg (85-104) L 08/02/16 00:53 ABG HCO3 27.2 mEQ/L (21-27) H 08/02/16 00:53 ABG Total CO2 28.5 mEq/L (20-26) H 08/02/16 00:53 ABG O2 Saturation 94 % (95-98) L 08/02/16 00:53 Alkaline Phosphatase 166 Units/L (38-126) H 08/01/16 17:42 C-Reactive Protein 6 mg/L (Less than 5) H 08/02/16 03:41 Albumin 3.2 g/dL (3.5-5.0) L 08/01/16 17:42 Albumin/Globulin Ratio 1.0 (1.1-2.2) L 08/01/16 17:42 Salicylates < 5.0 mg/dL (15-30) L 08/01/16 17:42 Acetaminophen < 1.0 mcg/mL (10-30) L 08/01/16 17:42 Ur Barbiturates Screen Positive ng/mL (Jqvjib=551) H 08/01/16 18:40 U Benzodiazepines Scrn Positive ng/mL (Ezpaye=547) H 08/01/16 18:40 Diabetes panel 08/02/16 Range/Units 03:41 Sodium 140 (136-145) mEq/L Potassium 4.1 (3.5-4.5) mEq/L Chloride 108 (98-109) mEq/L Carbon Dioxide 23 (19-29) mEq/L BUN 19 (7-20) mg/dL Creatinine 0.84 (0.57-1.11) mg/dL Glucose 95 (70-99) mg/dL Calcium 8.6 (8.6-10.8) mg/dL Thyroid panel 08/02/16 Range/Units 03:41 TSH 0.909 (0.350-4.840) mcIU/mL Calcium panel 08/02/16 Range/Units 03:41 Calcium 8.6 (8.6-10.8) mg/dL Pituitary panel 08/02/16 Range/Units 03:41 Sodium 140 (136-145) mEq/L Potassium 4.1 (3.5-4.5) mEq/L Chloride 108 (98-109) mEq/L Carbon Dioxide 23 (19-29) mEq/L BUN 19 (7-20) mg/dL Creatinine 0.84 (0.57-1.11) mg/dL Glucose 95 (70-99) mg/dL Calcium 8.6 (8.6-10.8) mg/dL TSH 0.909 (0.350-4.840) mcIU/mL Adrenal panel 08/02/16 Range/Units 03:41 Sodium 140 (136-145) mEq/L Potassium 4.1 (3.5-4.5) mEq/L Chloride 108 (98-109) mEq/L Carbon Dioxide 23 (19-29) mEq/L BUN 19 (7-20) mg/dL Creatinine 0.84 (0.57-1.11) mg/dL Glucose 95 (70-99) mg/dL Calcium 8.6 (8.6-10.8) mg/dL All other labs normal. Consult Discharge Plan - Plan Referrals: Iman Monae CNP [Primary Care Provider] - 08/09/16 1:25 pm Russell Carpenter MD [Partnered Physician] - 08/15/16 2:15 pm Sri Gallardo DO [Non-Partnered Physician] - 08/15/16 1:15 pm
[2016-08-02] MEDS: diazePAM 10 MG TABLET PO PRN (21:35)
[2016-08-02] MEDS: Magic Mouthwash 10 ML UD Cup PO SCH (21:36)
[2016-08-03 06:12] LABS: Basophils % 0.5 %; Eosinophils # 0.3 K/mcL (0.0-0.6); Eosinophils % 3.6 %; Hematocrit 32.2 % (35.3-44.9); Immature Granulocytes % 0.4 % (0-4); Lymphocytes # 1.9 K/mcL (0.6-4.6); Mean Corpuscular HGB Conc 31.1 g/dL (31.6-35.5); Mean Corpuscular Hemoglobin 28.8 pg (28.0-33.3); Mean Corpuscular Volume 92.8 fL (83.0-100.0); Mean Platelet Volume 9.8 fL (9.4-12.4); Monocytes # 0.5 K/mcL (0.0-1.3); Monocytes % 5.9 %; Neutrophils # 5.3 K/mcL (1.6-8.9); Platelet Count 213 K/mcL (140-400); Red Blood Count 3.47 M/mcL (3.82-4.97); Red Cell Distribution Width 13.2 % (11.5-14.5); Segmented Neutrophils % 65.6 %
[2016-08-03] MEDS: Budesonide/Formoterol 160/4.5 MDI IH SCH (07:58)
[2016-08-03] MEDS: diazePAM 10 MG TABLET PO PRN (08:23)
[2016-08-03] MEDS: Magic Mouthwash 10 ML UD Cup PO SCH ×2 (09:56→11:12)
--- NOTE | 2016-08-03 13:59 | Discharge Summary ---
Date of Encounter: 08/03/16 Time of Encounter: 13:56 - Discharge Diagnosis (1) Mastoiditis of left side Priority: Secondary Status: Acute (2) Tobacco use disorder Priority: Secondary Status: Chronic (3) DVT prophylaxis Priority: Secondary Status: Acute (4) Polypharmacy Priority: Primary Status: Chronic (5) Altered mental status Priority: Secondary Status: Resolved Qualifiers: Altered mental status type: unspecified Qualified Code(s): R41.82 - Altered mental status, unspecified (6) Slurred speech Priority: Primary Status: Resolved (7) Leukocytosis Priority: Secondary Status: Resolved Qualifiers: Leukocytosis type: unspecified Qualified Code(s): D72.829 - Elevated white blood cell count, unspecified (8) SOREN (acute kidney injury) Priority: Secondary Status: Resolved (9) Encephalopathy Priority: Secondary Status: Resolved - Discharge Medications Home Medications: Paroxetine [Paxil] 60 mg PO HS 04/01/15 [History] Buspirone HCl [Buspar] 10 mg PO BID 09/12/15 [History] Albuterol Sulfate [Albuterol Inhaler] 2 puff IH Q4HR PRN 30 Days 05/31/16 [Rx] Budesonide/Formoterol 160/4.5 [Symbicort 160/4.5] 2 puff IH BIDR 30 Days [Rx] Gabapentin [Neurontin] 600 mg PO BID 08/01/16 [History] Naproxen [EC-Naprosyn] 375 mg PO BID 08/01/16 [History] Allergies/Adverse Reactions: Allergies metoclopramide [From Reglan] Allergy (Mild, Verified 07/08/16 19:43) Itching tramadol Allergy (Mild, Verified 07/08/16 19:43) Itching amitriptyline Allergy (Verified 07/08/16 19:43) Itching Sulfa (Sulfonamide Antibiotics) Allergy (Verified 07/08/16 19:43) See Comments sulfamethoxazole [From Bactrim] Allergy (Verified 07/08/16 19:43) See Comments trimethoprim [From Bactrim] Allergy (Verified 07/08/16 19:43) See Comments blisters on hands and feet lorazepam [From Ativan] Adverse Reaction (Mild, Verified 07/08/16 19:43) Anxiety benztropine [From Cogentin] Adverse Reaction (Verified 07/08/16 19:43) See Comments patient states it causes sores on tongue ciprofloxacin [From Cipro] Adverse Reaction (Verified 07/08/16 19:43) See Comments BLISTERS TO HANDS AND FEET onabotulinumtoxinA [From Botox] Adverse Reaction (Verified 07/08/16 19:43) See Comments patient states it causes neck pain sumatriptan [From Imitrex] Adverse Reaction (Verified 07/08/16 19:43) Agitated topiramate [From Topamax] Adverse Reaction (Verified 07/08/16 19:43) See Comments patient states it makes her hyper Procedures/tests Complete & Pending: Procedures Performed prior 72 hours Category Date Time Status MR head/brain wo con [MR] Routine MRI 08/02/16 07:10 Completed Date of admission: 08/01/16 20:47 Primary care physician: Iman Monae CNP Consults: 08/02/16 09:24 Consult to Speech Therapy [CONS] Routine Comment: Evaluate, develop and implement POC Reason for Consult: Slurred speech Call Completed: No 08/02/16 11:59 Consult to Physical Therapy [CONS] Routine Comment: Evaluate, develop and implement POC OT [Consult to Occupational Therapy] [CONS] Routine Comment: Evaluate, develop and implement POC 08/02/16 14:26 Consult to ENT [CONS] Routine Consulting Provider: ENT Patty Reason for Consult: bilateral mastoid effusions, headache Call Completed: Yes Discharging clinician: Brigid Parker Anticipated date of discharge: 08/03/16 - Patient Status Disposition: Home, Self-Care Condition: Good Functional capacity at discharge: independent ambulation Overall status at discharge: patient is back to baseline - Discharge Instructions Follow Up With: Iman Monae CNP [Primary Care Provider] - 08/09/16 1:25 pm Russell Carpenter MD [Partnered Physician] - 08/15/16 2:15 pm Sri Gallardo DO [Non-Partnered Physician] - 08/15/16 1:15 pm Additional Instructions: Please follow up with your primary care physician and psychiatrist within one week after your discharge from the hospital. Please ask your psychiatrist to re-evaluate your home medications and only take your home medications as prescribed by your primary care physician and psychiatrist. Follow-up appointments: If there is not an appointment listed below, please call your physician and schedule a follow-up appointment. If you have congestive heart failure and your symptoms return, make an appointment with your physician. Medication List: Carry an up to date list of medications you are taking at all time. We have given you an updated medication list including any new medications that you have been prescribed. Please provide that list to your primary provider Symptoms: If your condition changes or you experience any of the following symptoms, notify your physician immediately: Unusual or worsening pain, fever, persistent nausea and vomiting, bleeding, increase in swelling (especially in your legs), sudden weight gain, extreme dizziness, chest pain, increased drainage or redness from a wound or incision. Go to the emergency department if you experience a problem with breathing. If you experience any of the warning signs for stroke: Sudden numbness or weakness of the face, arm or leg; especially on one side of the body, sudden confusion, trouble speaking or understanding, sudden trouble seeing in one or both eyes, sudden trouble walking, dizziness, loss of balance or coordination, sudden sever headache with no cause; Call 911 or go to the emergency room. Stroke is a medical emergency. Some risk factors for stroke: Age, cigarette smoking, diabetes, excessive alcohol consumption, family history , high blood pressure, overweight, physical inactivity, prior stroke, heart attack, diagnosis of carotid artery stenosis or other artery disease. If you smoke, STOP: Smoking or tobacco use significantly increases your risk of heart and lung disease. Your chance of disease greatly increases if you continue to smoke. For more information, call the [place] tobacco quit line for smoking cessation QUIT-NOW ( ) - Diet and Activity Activity: resume usual activities as tolerated Diet: advance to your usual diet Hospital course: Ms. Montoya is a 55 year old female with PMH of bipolar disorder, anxiety, and depression who was admitted for encephalopathy and slurred speech. Patient underwent CT head and MRI of brain which reported no acute intracranial abnormalities except bilateral mastoid effusions for which ENT was consulted. Patient's acute mental status change was also contributed to her polypharmacy as she was on Buspirone, Diazepam, Gabapentin, Trihexyphenidyl, and Paroxetine. All sedative agents were held with improvement of her symptoms and at this time patient's mental status is at baseline. No further intervention is recommended by ENT. At this time patient will be discharged to home with follow up with PCP. She is asked to avoid all sedative agents. Patient demonstrates understanding of her diagnosis and agrees with the discharge plan. - Time Spent with Patient Total time spent providing and/or coordinating discharge services: Less than 30 minutes - Constitutional Vitals: Temp Pulse Resp BP Pulse Ox 97.7 F 83 20 108/73 98 08/03/16 11:12 08/03/16 11:12 08/03/16 11:12 08/03/16 11:12 08/03/16 11:12 General appearance: Present: A&O X 3, no acute distress, answers questions appropriately - Head Head exam: Present: atraumatic, normocephalic - Eye Eye exam: Present: normal appearance, conjuntiva pink, sclera anicteric - Respiratory Respiratory exam: Present: CTAB. Absent: accessory muscle use, rales, rhonchi, wheezes - Cardiovascular Cardiovascular exam: Present: RRR, +S1, +S2. Absent: diastolic murmur, gallop, rubs, systolic murmur - GI/Abdominal GI/Abdominal exam: Present: normal bowel sounds, soft, no peritoneal signs. Absent: distended, tenderness - Extremities Exam Extremities exam: Present: warm, radial pulses palpable and symetrical. Absent : calf tenderness, cyanotic, pedal edema - Neurological Exam Neurological exam: Present: alert, CN II-XII intact, oriented X3, no focal deficits. Absent: pronater drift, facial droop, speech deficit - Psychiatric Psychiatric exam: Present: normal affect, normal mood
[2016-08-05 10:01] VITALS: BP 108/73
== END 2016-08-03 15:07 | disposition home or self-care (01) ==
LOC: 3BNU 16:36 → EMEROO 16:36 → SUATTDRO 20:47 → 3BNU 20:51
PROVIDERS: ADMIT Nurse Practitioner Family; ATTEND Internal Medicine

== ENCOUNTER 2016-08-04 17:35 | Inpatient (IN) ==
[~2016-08-04 17:35] MED LIST: *HR* Etomidate 20 MG/10 ML AMPUL IVP ONE; *HR* Rocuronium Bromide 100 MG/10 ML VIAL IVC ONE
[2016-08-04] MEDS ORDERED: 0.9 % Sodium Chloride 1,000 ML IVC ONE ×2 (17:38→19:16)
[2016-08-04] MEDS ORDERED: *HR* Rocuronium Bromide 50 MG/5 ML VIAL IVP ONE (17:49)
[2016-08-04] MEDS ORDERED: *HR* Etomidate 20 MG/10 ML AMPUL IVP ONE (17:49)
[2016-08-04 18:04] LABS: Bilirubin,Urine Negative (Negative); Blood,Urine Negative (Negative); Clarity,Urine Clear (Clear); Color,Urine Yellow (Yellow); Glucose,Urine (UA) Normal (Normal); Ketones,Urine Negative (Negative); Leukocyte Esterase,Urine Negative (Negative); Nitrite,Urine Negative (Negative); PH,Urine 5.5 pH Units (5.0-8.0); Protein,Urine Negative (Neg-Trace); Specific Gravity,Urine 1.008 (1.010-1.025); Urobilinogen,Urine Normal (Normal)
[2016-08-04 18:10] LABS: Amphetamine Screen,Urine Negative ng/mL (Cutoff=1000); Benzodiazepines Screen,Urine Positive ng/mL (Cutoff=200); Cannabinoid Screen,Urine Negative ng/mL (Cutoff = 50); Cocaine Screen,Urine Negative ng/mL (Cutoff= 300); Opiate Screen,Urine Negative ng/mL (Cutoff=300); Phencyclidine Screen,Urine Negative ng/mL (Cutoff=25)
[2016-08-04 18:11] LABS: Barbiturate Screen,Urine Positive ng/mL (Cutoff=200)
--- NOTE | 2016-08-04 18:15 | Emergency Department Note ---
Disposition Clinical Impression: Altered mental status, Opacity of lung on imaging study, Anemia, Endotracheally intubated, Barbiturate abuse, Benzodiazepine abuse, Sepsis, Abnormal liver function tests, Abnormal neurological exam Disposition: Admitted As Inpatient Referrals: NO,PCP [Primary Care Provider] - Forms: ED Satisfaction Letter General Adult HPI - General Chief complaint: ED Overdose Stated complaint: overdose Time Seen by Provider: 08/04/16 17:37 - History of Present Illness HPI Narrative: 55-year-old female brought in by EMS for concerns regarding poor responsiveness and possible overdose. The patient reportedly took 2 Vicodin. There is no history of trauma. The patient was found poorly responsive. There is no history of seizure-like activity. Blood glucose at the scene was over 100. A bottle of trazodone was found near the patient. The patient is unable to give a history. EMS reports the patient may have overdosed, they deny any history of trauma. Family members reportedly corroborate the history of possible overdose. The patient was recently admitted and discharged from this facility, it appears that she had a diagnosis of encephalopathy on admission. An MRI of the head was reportedly negative apart from some mastoiditis. - Related Data Home Medications Medication Instructions Recorded Confirmed Paroxetine [Paxil] 60 mg PO HS 04/01/15 08/01/16 Buspirone HCl [Buspar] 10 mg PO BID 09/12/15 08/01/16 Gabapentin [Neurontin] 600 mg PO BID 08/01/16 08/01/16 Naproxen [EC-Naprosyn] 375 mg PO BID 08/01/16 08/01/16 Previous Rx's Medication Instructions Recorded Albuterol Sulfate [Albuterol 2 puff IH Q4HR PRN 30 Days 05/31/16 Inhaler] Budesonide/Formoterol 160/4.5 2 puff IH BIDR 30 Days 05/31/16 [Symbicort 160/4.5] Allergies Allergy/AdvReac Type Severity Reaction Status Date / Time metoclopramide [From Reglan] Allergy Mild Itching Verified 07/08/16 19:43 tramadol Allergy Mild Itching Verified 07/08/16 19:43 amitriptyline Allergy Itching Verified 07/08/16 19:43 Sulfa (Sulfonamide Allergy See Verified 07/08/16 19:43 Antibiotics) Comments sulfamethoxazole Allergy See Verified 07/08/16 19:43 [From Bactrim] Comments trimethoprim [From Bactrim] Allergy See Verified 07/08/16 19:43 Comments lorazepam [From Ativan] AdvReac Mild Anxiety Verified 07/08/16 19:43 benztropine [From Cogentin] AdvReac See Verified 07/08/16 19:43 Comments ciprofloxacin [From Cipro] AdvReac See Verified 07/08/16 19:43 Comments onabotulinumtoxinA AdvReac See Verified 07/08/16 19:43 [From Botox] Comments sumatriptan [From Imitrex] AdvReac Agitated Verified 07/08/16 19:43 topiramate [From Topamax] AdvReac See Verified 07/08/16 19:43 Comments Limitations: ROS unobtainable due to patients medical condition Past Medical History - Past Medical History Medical history: Reports: migraine, other Surgical history: Reports: cholecystectomy, herniorrhaphy, hysterectomy Psychiatric history: Reports: anxiety, bipolar, depression CLIENT ENGAGEMENT SPECIALIST history: Reports: no CLIENT ENGAGEMENT SPECIALIST history, other - Social History Smoking Status: Former smoker Smokeless Tobacco Status: No Alcohol use: Reports: none Drug use: Reports: none Physical Exam - General Limitations: altered mental status General appearance: lethargic, other (Barely moved to sternal rub. Lower breast ) - Head Head exam: atraumatic, normocephalic, normal inspection - Eye Eye exam: Present: mydriasis, other (Pupils are dilated and nonreactive). Absent: scleral icterus, conjunctival injection, periorbital swelling - ENT ENT exam: normal exam, normal oropharynx, mucous membranes moist, TM's normal bilaterally, normal external ear exam - Neck Neck exam: Present: normal inspection, full ROM, trachea midline - Chest Chest inspection: Present: normal inspection, symmetric chest wall rise. Absent : tenderness - Respiratory Respiratory exam: Absent: normal lung sounds bilaterally (Decreased breath sounds left, the patient's respirations are shallow and slow.) - Cardiovascular Cardiovascular exam: Present: regular rate, normal rhythm, normal heart sounds - Abdominal Exam Abdominal exam: Present: soft, Non-Tender, normal bowel sounds. Absent: tenderness, distention, guarding, rebound, rigidity, trauma - Extremities Exam Extremities exam: Present: normal inspection, full ROM, normal capillary refill. Absent: tenderness, pedal edema, joint swelling, calf tenderness - Expanded Lower Extremity Exam Hip/Pelvis exam: Present: normal inspection, full ROM. Absent: deformity Upper leg exam: Present: normal inspection, full ROM Knee exam: Present: normal inspection, full ROM. Absent: deformity Lower leg exam: Present: normal inspection, full ROM. Absent: deformity Ankle exam: Present: normal inspection, full ROM. Absent: deformity Foot/toe exam: Present: normal inspection, full ROM. Absent: deformity Neurovascular/Tendon exam: Present: normal capillary refill. Absent: pulse deficit, extremity cold to touch, pallor - Back Exam Back exam: Present: normal inspection, full ROM. Absent: tenderness, CVA tenderness (R), CVA tenderness (L), vertebral tenderness - Neurological Exam Neurological exam: Present: motor sensory deficit (Good tone in all 4 extremities, the patient does not operate with neurologic exam. She is lethargic, pupils are fixed and dilated. Corneal reflexes intact gag reflex intact.). Absent: alert, oriented X3, CN II-XII intact - Skin Skin exam: Present: warm, dry, intact, normal color. Absent: rash, cyanosis, diaphoresis, erythema, pallor Course - Reevaluation(s) Reevaluation #1: The patient was intubated, status post, chest x-ray showed the tube to be in the right mainstem, it was withdrawn, a second film was obtained, still too deep , withdrawn further, a third film was obtained which showed the tube apparently slightly above the lisa. Vital Signs Temperature 97.6 F 08/04/16 17:36 Pulse Rate 94 08/04/16 17:36 Respiratory Rate 18 08/04/16 17:36 Blood Pressure 127/74 08/04/16 17:36 O2 Sat by Pulse Oximetry 96 08/04/16 17:36 Temperature 97.6 F 08/04/16 17:36 Pulse Rate 85 08/04/16 19:43 Respiratory Rate 12 08/04/16 19:43 Blood Pressure 116/65 08/04/16 19:43 O2 Sat by Pulse Oximetry 99 08/04/16 19:43 Oxygen Delivery Oxygen Delivery Ventilator Procedures - Intubation sedative: Etomidate paralytic: Rocuronium Laryngoscope: fiber optic video scope ET Tube Size: other Tube Secured Depth (cm): 17 Tube Placement Confirmation: visualized tube passing through cords, confirmation by capnometry Patient Tolerated Procedure: well Intubation Complications: difficult intubation Medical Decision Making - [facility] Narrative Medical decision making narrative: The patient came in ethargic and nearly obtunded, her pupils were fixed and dilated, she had a positive corneal reflex bilaterally as well as a gag reflex but it was not strong. The patient was subsequently intubated using rapid sequence intubation procedure. Radiographic studies show what appear to be opacities in both lungs worse on the left. Blood cultures are sent IV access was established, antibiotics were ordered. The patient was maintained on a propofol drip. EKG shows no acute changes. Elevated white blood cell count noted, a heart rate above 90, and apparent source for infection, the patient meets sepsis criteria, IV fluid was given as well as antibiotics, drugs of abuse apparently noted in the urine. The patient may have aspirated. Her pupils were fixed and dilated on arrival, she may have an element of an anoxic brain injury. Based on the patient's critical condition, she will need an ICU admission. I discussed the case with the hospitalist on-call Dr. Somres who has accepted the patient to their care. - Lab Data Lab results reviewed: Yes I reviewed the patient's lab results. Result diagrams: 08/04/16 18:53 08/04/16 18:53 Lab Results 08/04/16 08/04/16 08/04/16 Range/Units 17:52 17:52 18:53 WBC 14.4 H D (4.3-11.1) K/mcL RBC 3.46 L (3.82-4.97) M/mcL Hgb 10.3 L (11.5-15.4) g/dL Hct 32.7 L (35.3-44.9) % MCV 94.5 (83.0-100.0) fL MCH 29.8 (28.0-33.3) pg MCHC 31.5 L (31.6-35.5) g/dL RDW 13.2 (11.5-14.5) % Plt Count 228 (140-400) K/mcL MPV 9.5 (9.4-12.4) fL Immature Gran % 0.6 (0-4) % Seg Neutrophils % 87.1 % Lymphocytes % 6.7 % Monocytes % 3.8 % Eosinophils % 1.6 % Basophils % 0.2 % Neutrophils # 12.5 H (1.6-8.9) K/mcL Lymphocytes # 1.0 (0.6-4.6) K/mcL Monocytes # 0.6 (0.0-1.3) K/mcL Eosinophils # 0.2 (0.0-0.6) K/mcL Basophils # 0.0 (0.0-0.2) K/mcL ABG pH (7.32-7.45) pH Units ABG pCO2 (35-45) mmHg ABG pO2 (85-104) mmHg ABG HCO3 (21-27) mEQ/L ABG Total CO2 (20-26) mEq/L ABG O2 Saturation (95-98) % ABG Base Excess (-2.0 to 3.0) mEq/L Blood Gas Modality Inspired O2 % Sodium (136-145) mEq/L Potassium (3.5-4.5) mEq/L Chloride (98-109) mEq/L Carbon Dioxide (19-29) mEq/L BUN (7-20) mg/dL Creatinine (0.57-1.11) mg/dL Est GFR ( Amer) (> 60) Est GFR (Non-Af Amer) (> 60) BUN/Creatinine Ratio (6-26) Glucose (70-99) mg/dL Calculated Osmolality (280-300) Lactic Acid (0.5-2.2) mmol/L Calcium (8.6-10.8) mg/dL Total Bilirubin (0.2-1.2) mg/dL Direct Bilirubin (0.0-0.5) mg/dL Indirect Bilirubin (0.0-1.2) mg/dL AST (5-34) Units/L ALT (0-55) Units/L Alkaline Phosphatase (38-126) Units/L Ammonia (18-72) mcmol/L Troponin I (0-0.03) ng/mL B-Natriuretic Peptide (0-100) pg/mL Serum Total Protein (6.0-8.3) g/dL Albumin (3.5-5.0) g/dL Globulin (2.4-3.5) g/dL Albumin/Globulin Ratio (1.1-2.2) TSH (0.350-4.840) mcIU/mL Urine Color Yellow (Yellow) Urine Clarity Clear (Clear) Urine pH 5.5 (5.0-8.0) pH Units Ur Specific [place] 1.008 L (1.010-1.025) Urine Protein Negative (Neg-Trace) mg/dL Urine Glucose (UA) Normal (Normal) mg/dL Urine Ketones Negative (Negative) mg/dL Urine Blood Negative (Negative) Urine Nitrite Negative (Negative) Urine Bilirubin Negative (Negative) Urine Urobilinogen Normal (Normal) mg/dL Ur Leukocyte Esterase Negative (Negative) Salicylates (15-30) mg/dL Urine Opiates Screen Negative (Afisbd=638) ng/mL Acetaminophen (10-30) mcg/mL Ur Barbiturates Screen Positive H (Uykewt=102) ng/mL Ur Phencyclidine Scrn Negative (Cutoff=25) ng/mL Ur Amphetamines Screen Negative (Jljmmu=6486) ng/mL U Benzodiazepines Scrn Positive H (Qujveh=150) ng/mL Urine Cocaine Screen Negative (Cutoff= 300) ng/mL U Marijuana (THC) Screen Negative (Cutoff = 50) ng/mL Ethyl Alcohol (0-10) mg/dL 08/04/16 08/04/16 08/04/16 Range/Units 18:53 18:53 18:53 WBC (4.3-11.1) K/mcL RBC (3.82-4.97) M/mcL Hgb (11.5-15.4) g/dL Hct (35.3-44.9) % MCV (83.0-100.0) fL MCH (28.0-33.3) pg MCHC (31.6-35.5) g/dL RDW (11.5-14.5) % Plt Count (140-400) K/mcL MPV (9.4-12.4) fL Immature Gran % (0-4) % Seg Neutrophils % % Lymphocytes % % Monocytes % % Eosinophils % % Basophils % % Neutrophils # (1.6-8.9) K/mcL Lymphocytes # (0.6-4.6) K/mcL Monocytes # (0.0-1.3) K/mcL Eosinophils # (0.0-0.6) K/mcL Basophils # (0.0-0.2) K/mcL ABG pH (7.32-7.45) pH Units ABG pCO2 (35-45) mmHg ABG pO2 (85-104) mmHg ABG HCO3 (21-27) mEQ/L ABG Total CO2 (20-26) mEq/L ABG O2 Saturation (95-98) % ABG Base Excess (-2.0 to 3.0) mEq/L Blood Gas Modality Inspired O2 % Sodium 140 (136-145) mEq/L Potassium 3.6 (3.5-4.5) mEq/L Chloride 110 H (98-109) mEq/L Carbon Dioxide 18 L (19-29) mEq/L BUN 11 (7-20) mg/dL Creatinine 0.84 (0.57-1.11) mg/dL Est GFR ( Amer) > 60 (> 60) Est GFR (Non-Af Amer) > 60 (> 60) BUN/Creatinine Ratio 13 (6-26) Glucose 178 H (70-99) mg/dL Calculated Osmolality 294 (280-300) Lactic Acid 1.0 (0.5-2.2) mmol/L Calcium 8.4 L (8.6-10.8) mg/dL Total Bilirubin 0.5 (0.2-1.2) mg/dL Direct Bilirubin 0.2 (0.0-0.5) mg/dL Indirect Bilirubin 0.3 (0.0-1.2) mg/dL AST 39 H (5-34) Units/L ALT 55 (0-55) Units/L Alkaline Phosphatase 164 H (38-126) Units/L Ammonia (18-72) mcmol/L Troponin I (0-0.03) ng/mL B-Natriuretic Peptide (0-100) pg/mL Serum Total Protein 5.9 L (6.0-8.3) g/dL Albumin 3.2 L (3.5-5.0) g/dL Globulin 2.7 (2.4-3.5) g/dL Albumin/Globulin Ratio 1.2 (1.1-2.2) TSH 1.009 (0.350-4.840) mcIU/mL Urine Color (Yellow) Urine Clarity (Clear) Urine pH (5.0-8.0) pH Units Ur Specific [place] (1.010-1.025) Urine Protein (Neg-Trace) mg/dL Urine Glucose (UA) (Normal) mg/dL Urine Ketones (Negative) mg/dL Urine Blood (Negative) Urine Nitrite (Negative) Urine Bilirubin (Negative) Urine Urobilinogen (Normal) mg/dL Ur Leukocyte Esterase (Negative) Salicylates < 5.0 L (15-30) mg/dL Urine Opiates Screen (Lnbbxz=179) ng/mL Acetaminophen < 1.0 L (10-30) mcg/mL Ur Barbiturates Screen (Aznuti=903) ng/mL Ur Phencyclidine Scrn (Cutoff=25) ng/mL Ur Amphetamines Screen (Kxjcwu=7155) ng/mL U Benzodiazepines Scrn (Wpwbsm=560) ng/mL Urine Cocaine Screen (Cutoff= 300) ng/mL U Marijuana (THC) Screen (Cutoff = 50) ng/mL Ethyl Alcohol < 10 (0-10) mg/dL 08/04/16 08/04/16 08/04/16 Range/Units 18:53 18:53 18:53 WBC (4.3-11.1) K/mcL RBC (3.82-4.97) M/mcL Hgb (11.5-15.4) g/dL Hct (35.3-44.9) % MCV (83.0-100.0) fL MCH (28.0-33.3) pg MCHC (31.6-35.5) g/dL RDW (11.5-14.5) % Plt Count (140-400) K/mcL MPV (9.4-12.4) fL Immature Gran % (0-4) % Seg Neutrophils % % Lymphocytes % % Monocytes % % Eosinophils % % Basophils % % Neutrophils # (1.6-8.9) K/mcL Lymphocytes # (0.6-4.6) K/mcL Monocytes # (0.0-1.3) K/mcL Eosinophils # (0.0-0.6) K/mcL Basophils # (0.0-0.2) K/mcL ABG pH (7.32-7.45) pH Units ABG pCO2 (35-45) mmHg ABG pO2 (85-104) mmHg ABG HCO3 (21-27) mEQ/L ABG Total CO2 (20-26) mEq/L ABG O2 Saturation (95-98) % ABG Base Excess (-2.0 to 3.0) mEq/L Blood Gas Modality Inspired O2 % Sodium (136-145) mEq/L Potassium (3.5-4.5) mEq/L Chloride (98-109) mEq/L Carbon Dioxide (19-29) mEq/L BUN (7-20) mg/dL Creatinine (0.57-1.11) mg/dL Est GFR ( Amer) (> 60) Est GFR (Non-Af Amer) (> 60) BUN/Creatinine Ratio (6-26) Glucose (70-99) mg/dL Calculated Osmolality (280-300) Lactic Acid (0.5-2.2) mmol/L Calcium (8.6-10.8) mg/dL Total Bilirubin (0.2-1.2) mg/dL Direct Bilirubin (0.0-0.5) mg/dL Indirect Bilirubin (0.0-1.2) mg/dL AST (5-34) Units/L ALT (0-55) Units/L Alkaline Phosphatase (38-126) Units/L Ammonia 27 (18-72) mcmol/L Troponin I 0.00 (0-0.03) ng/mL B-Natriuretic Peptide 52 (0-100) pg/mL Serum Total Protein (6.0-8.3) g/dL Albumin (3.5-5.0) g/dL Globulin (2.4-3.5) g/dL Albumin/Globulin Ratio (1.1-2.2) TSH (0.350-4.840) mcIU/mL Urine Color (Yellow) Urine Clarity (Clear) Urine pH (5.0-8.0) pH Units Ur Specific [place] (1.010-1.025) Urine Protein (Neg-Trace) mg/dL Urine Glucose (UA) (Normal) mg/dL Urine Ketones (Negative) mg/dL Urine Blood (Negative) Urine Nitrite (Negative) Urine Bilirubin (Negative) Urine Urobilinogen (Normal) mg/dL Ur Leukocyte Esterase (Negative) Salicylates (15-30) mg/dL Urine Opiates Screen (Xkklkz=112) ng/mL Acetaminophen (10-30) mcg/mL Ur Barbiturates Screen (Ugpcos=078) ng/mL Ur Phencyclidine Scrn (Cutoff=25) ng/mL Ur Amphetamines Screen (Tflaxh=6627) ng/mL U Benzodiazepines Scrn (Mimhus=392) ng/mL Urine Cocaine Screen (Cutoff= 300) ng/mL U Marijuana (THC) Screen (Cutoff = 50) ng/mL Ethyl Alcohol (0-10) mg/dL 08/04/16 Range/Units 19:20 WBC (4.3-11.1) K/mcL RBC (3.82-4.97) M/mcL Hgb (11.5-15.4) g/dL Hct (35.3-44.9) % MCV (83.0-100.0) fL MCH (28.0-33.3) pg MCHC (31.6-35.5) g/dL RDW (11.5-14.5) % Plt Count (140-400) K/mcL MPV (9.4-12.4) fL Immature Gran % (0-4) % Seg Neutrophils % % Lymphocytes % % Monocytes % % Eosinophils % % Basophils % % Neutrophils # (1.6-8.9) K/mcL Lymphocytes # (0.6-4.6) K/mcL Monocytes # (0.0-1.3) K/mcL Eosinophils # (0.0-0.6) K/mcL Basophils # (0.0-0.2) K/mcL ABG pH 7.28 L (7.32-7.45) pH Units ABG pCO2 46 H (35-45) mmHg ABG pO2 88 (85-104) mmHg ABG HCO3 21.6 (21-27) mEQ/L ABG Total CO2 23.0 (20-26) mEq/L ABG O2 Saturation 95 (95-98) % ABG Base Excess -5.0 L (-2.0 to 3.0) mEq/L Blood Gas Modality ASSIST CONTROL Inspired O2 50 % Sodium (136-145) mEq/L Potassium (3.5-4.5) mEq/L Chloride (98-109) mEq/L Carbon Dioxide (19-29) mEq/L BUN (7-20) mg/dL Creatinine (0.57-1.11) mg/dL Est GFR ( Amer) (> 60) Est GFR (Non-Af Amer) (> 60) BUN/Creatinine Ratio (6-26) Glucose (70-99) mg/dL Calculated Osmolality (280-300) Lactic Acid (0.5-2.2) mmol/L Calcium (8.6-10.8) mg/dL Total Bilirubin (0.2-1.2) mg/dL Direct Bilirubin (0.0-0.5) mg/dL Indirect Bilirubin (0.0-1.2) mg/dL AST (5-34) Units/L ALT (0-55) Units/L Alkaline Phosphatase (38-126) Units/L Ammonia (18-72) mcmol/L Troponin I (0-0.03) ng/mL B-Natriuretic Peptide (0-100) pg/mL Serum Total Protein (6.0-8.3) g/dL Albumin (3.5-5.0) g/dL Globulin (2.4-3.5) g/dL Albumin/Globulin Ratio (1.1-2.2) TSH (0.350-4.840) mcIU/mL Urine Color (Yellow) Urine Clarity (Clear) Urine pH (5.0-8.0) pH Units Ur Specific [place] (1.010-1.025) Urine Protein (Neg-Trace) mg/dL Urine Glucose (UA) (Normal) mg/dL Urine Ketones (Negative) mg/dL Urine Blood (Negative) Urine Nitrite (Negative) Urine Bilirubin (Negative) Urine Urobilinogen (Normal) mg/dL Ur Leukocyte Esterase (Negative) Salicylates (15-30) mg/dL Urine Opiates Screen (Mcpkhe=315) ng/mL Acetaminophen (10-30) mcg/mL Ur Barbiturates Screen (Apyaqp=631) ng/mL Ur Phencyclidine Scrn (Cutoff=25) ng/mL Ur Amphetamines Screen (Dibqfd=6740) ng/mL U Benzodiazepines Scrn (Uzebdb=962) ng/mL Urine Cocaine Screen (Cutoff= 300) ng/mL U Marijuana (THC) Screen (Cutoff = 50) ng/mL Ethyl Alcohol (0-10) mg/dL - Radiology Data Radiology results reviewed: Yes I reviewed the patient's radiology results.
[2016-08-04] MEDS ORDERED: Vancomycin 1,000 MG in D5% in Water 250 ML IVPB ONE (18:22)
[2016-08-04] MEDS ORDERED: Piperacillin/Tazobactam 3.375 GM in D5% in Water (Mini-Bag+) 100 ML IVPB ONE (18:22)
[2016-08-04] MEDS: Propofol 500 MG/50 ML INFUS..BTL IVC SCH ×2 (18:26→22:44)
[2016-08-04 19:08] LABS: Basophils % 0.2 %; Eosinophils # 0.2 K/mcL (0.0-0.6); Eosinophils % 1.6 %; Hematocrit 32.7 % (35.3-44.9); Hemoglobin 10.3 g/dL (11.5-15.4); Immature Granulocytes % 0.6 % (0-4); Lymphocytes % 6.7 %; Mean Corpuscular HGB Conc 31.5 g/dL (31.6-35.5); Mean Corpuscular Hemoglobin 29.8 pg (28.0-33.3); Mean Corpuscular Volume 94.5 fL (83.0-100.0); Mean Platelet Volume 9.5 fL (9.4-12.4); Monocytes # 0.6 K/mcL (0.0-1.3); Monocytes % 3.8 %; Neutrophils # 12.5 K/mcL (1.6-8.9); Platelet Count 228 K/mcL (140-400); Red Blood Count 3.46 M/mcL (3.82-4.97); Red Cell Distribution Width 13.2 % (11.5-14.5); Segmented Neutrophils % 87.1 %
[2016-08-04 19:23] LABS: Alanine Aminotransferase 55 Units/L (0-55); Albumin 3.2 g/dL (3.5-5.0); Albumin/Globulin Ratio 1.2 (1.1-2.2); Alkaline Phosphatase 164 Units/L (38-126); Aspartate Amino Transferase 39 Units/L (5-34); BUN/Creatinine Ratio 13 (6-26); Bilirubin,Direct 0.2 mg/dL (0.0-0.5); Bilirubin,Indirect 0.3 mg/dL (0.0-1.2); Bilirubin,Total 0.5 mg/dL (0.2-1.2); Blood Urea Nitrogen 11 mg/dL (7-20); Calcium 8.4 mg/dL (8.6-10.8); Carbon Dioxide 18 mEq/L (19-29); Chloride 110 mEq/L (98-109); Globulin 2.7 g/dL (2.4-3.5); Glucose 178 mg/dL (70-99); Osmolality,Calculated 294 (280-300); Potassium 3.6 mEq/L (3.5-4.5); Sodium 140 mEq/L (136-145); Total Protein 5.9 g/dL (6.0-8.3); eGFR For African Americans > 60 (> 60); eGFR For Non-African Americans > 60 (> 60)
[2016-08-04 19:24] LABS: Acetaminophen < 1.0 mcg/mL (10-30); Ethanol < 10 mg/dL (0-10); Salicylate < 5.0 mg/dL (15-30)
[2016-08-04 19:32] LABS: ABG HCO3 21.6 mEQ/L (21-27); ABG Oxygen Saturation 95 % (95-98); ABG PCO2 46 mmHg (35-45); ABG PH 7.28 pH Units (7.32-7.45); ABG PO2 88 mmHg (85-104); Blood Gas FiO2 50 %
[2016-08-04] MEDS ORDERED: Naloxone 0.4 MG/ML INJ IVP PRN (21:59)
[2016-08-04] MEDS ORDERED: Lacri-Lube 3.5 GM TUBE BOTH EYES PRN (22:02)
--- NOTE | 2016-08-04 22:09 | Internal Med History&Physical ---
Date of Encounter: 08/04/16 Time of Encounter: 21:30 Assessment and Plan (1) Overdose of medication Current visit: Yes Status: Acute Pt is suspected to have opiates versus trazadone. Intent is not known. Patient is intubated at this time. Provide supportive care. She will need psychiatry consultation prior to discharge Qualifiers: Encounter type: initial encounter Injury intent: undetermined intent Qualified Code(s): T50.904A - Poisoning by unspecified drugs, medicaments and biological substances, undetermined, initial encounter (2) Acute respiratory failure Current visit: Yes Status: Acute Likely due to overdose of medications. Pt was obtunded in the ER. Pt is intubated in the ER. Pulmonology consult for further management Qualifiers: Respiratory failure complication: hypoxia and hypercapnia Qualified Code(s) : J96.01 - Acute respiratory failure with hypoxia; J96.02 - Acute respiratory failure with hypercapnia (3) Endotracheally intubated Current visit: Yes Status: Acute Pt was obtunded in the ER - likely due to overdose of medications. Pt was intubated in the ER (4) Pneumonia Current visit: Yes Status: Acute Perihilar consolidation reported on CXR. Pt was treated for aspiration pneumonia in the ER. however, patient had right main bronhus intubation with collapse of the left lung, and the changes seen on the CXR could be secondary to that. Repeat CXR Qualifiers: Pneumonia type: aspiration pneumonia Aspiration pneumonia type: unspecified Laterality: bilateral Lung location: lower lobe of lung Qualified Code(s): J69.0 - Pneumonitis due to inhalation of food and vomit (5) Encephalopathy Current visit: Yes Status: Acute Possibly due to overdose of medications. Pt is intubated at this time (6) Sinusitis Current visit: Yes Status: Acute Possible right maxillary sinusitis - on Abx Qualifiers: Sinusitis location: maxillary Chronicity: acute Recurrence: not specified as recurrent Qualified Code(s): J01.00 - Acute maxillary sinusitis, unspecified (7) Bipolar disorder Current visit: Yes Status: Chronic Psychiatry consult prior to discharge Qualifiers: Active/Remission status: remission status unspecified Qualified Code(s): F31.9 - Bipolar disorder, unspecified (8) Obesity (BMI 30-39.9) Current visit: Yes Status: Chronic supportive care (9) DVT prophylaxis Current visit: Yes Status: Acute Heparin Internal Medicine - H&P: HPI Chief complaint: overdose of medications Admitted From: Emergency Dept Plans for Post Hospital Care: Home History of present illness: Pt is not able to give clinical due to intubated status. No family members at the bedside. I have reviewed ER notes and recent hospitalization reports. She was recently admitted to document the status and was suspected to be due to polypharmacy. Ms. Montoya is a 55 year old female with past medical history significant for bipolar disorder, migraines, interstitial lung disease, chronic respiratory failure home oxygen. She was brought in by EMS for concerns regarding poor responsiveness and possible overdose. The patient was apparently found poorly responsive. Blood glucose at the scene was over 100. A bottle of trazodone was found near the patient. EMS reported that the patient may have overdosed. Family members reportedly corroborate the history of possible overdose. Per the ER physicians note: The patient's father reports the patient was in her usual state of health earlier this afternoon, per reports she went into the house to get something to eat, the father was doing some yard work, evidently the patient's mother found her unresponsive and EMS was notified. He reports the patient may have taken 2 Vicodin. There is no history of acute complaint otherwise. She was intubated, status post, chest x-ray showed the tube to be in the right mainstem bronchus, it was withdrawn and CXR repeated. Not able to confirm review of systems, past medical history, social history, family history with the patient. Critical care time spent in organizing caare in the ICU is 45 minutes Past Med Surg Social Fam HX - Past Medical History Medical history: migraine, other Psychiatric history: anxiety, bipolar, depression - Past Surgical History Surgical History: cholecystectomy, herniorrhaphy, hysterectomy - Social History Smoking Status: Former smoker Smokeless Tobacco Status: No Alcohol use: none Drug use: none - Family History Father Living Status: Still Living Hx Family Cardiac Disorders: Yes Mother Family Member Ethnicity: Non- Living Status: Still Living Hx Family Cardiac Disorders: No Hx Family Respiratory Disorders: Yes (short of breath) Hx Family Cancer: No Hx Family GI Disorders: No Hx Family Endocrine Disorder: No Hx Family Neuromuscular Disorders: No Hx Family Neurologic Disorders: No Hx Family HEENT Disorders: No Hx Family Autoimmune Disorders: Yes (hyperthyroid) Grandfather Living Status: Hx Family Cardiac Disorders: Yes Internal Medicine - H&P: Meds Paroxetine [Paxil] 60 mg PO HS 04/01/15 [History] Buspirone HCl [Buspar] 10 mg PO BID 09/12/15 [History] Albuterol Sulfate [Albuterol Inhaler] 2 puff IH Q4HR PRN 30 Days 05/31/16 [Rx] Budesonide/Formoterol 160/4.5 [Symbicort 160/4.5] 2 puff IH BIDR 30 Days [Rx] Gabapentin [Neurontin] 600 mg PO BID 08/01/16 [History] Naproxen [EC-Naprosyn] 375 mg PO BID 08/01/16 [History] Chlorpromazine HCl 100 mg PO QAM 08/05/16 [History] Chlorpromazine HCl 300 mg PO HS 08/05/16 [History] Cyclobenzaprine HCl 5 mg PO HS PRN 08/05/16 [History] Allergies metoclopramide [From Reglan] Allergy (Mild, Verified 07/08/16 19:43) Itching tramadol Allergy (Mild, Verified 07/08/16 19:43) Itching amitriptyline Allergy (Verified 07/08/16 19:43) Itching Sulfa (Sulfonamide Antibiotics) Allergy (Verified 07/08/16 19:43) See Comments sulfamethoxazole [From Bactrim] Allergy (Verified 07/08/16 19:43) See Comments trimethoprim [From Bactrim] Allergy (Verified 07/08/16 19:43) See Comments blisters on hands and feet lorazepam [From Ativan] Adverse Reaction (Mild, Verified 07/08/16 19:43) Anxiety benztropine [From Cogentin] Adverse Reaction (Verified 07/08/16 19:43) See Comments patient states it causes sores on tongue ciprofloxacin [From Cipro] Adverse Reaction (Verified 07/08/16 19:43) See Comments BLISTERS TO HANDS AND FEET onabotulinumtoxinA [From Botox] Adverse Reaction (Verified 07/08/16 19:43) See Comments patient states it causes neck pain sumatriptan [From Imitrex] Adverse Reaction (Verified 07/08/16 19:43) Agitated topiramate [From Topamax] Adverse Reaction (Verified 07/08/16 19:43) See Comments patient states it makes her hyper ROS unobtainable: due to endotracheal tube - Constitutional Vitals: Temp Pulse Resp BP Pulse Ox 97.6 F 82 12 128/69 100 08/04/16 17:36 08/04/16 20:25 08/04/16 20:34 08/04/16 20:34 08/04/16 20:25 Exam: General: Intubated and is on mechanical ventilation HEENT: Intubated and is on mechanical ventilation. Pupils dilated and poorly reactive to light Neck: No obvious neck swellings Lungs: Bilateral air entry present. Few left basilar crackles Cardiac: Regular rate and rhythm. No significant murmurs Abdomen: Soft, non tender. Bowel sounds present Genitourinary: an catheter Neuro: Sedated Psych: Sedated Extremities: Mild leg edema Skin: No generalized rash Internal Med - H&P Results - Labs CBC & Chem 7: 08/05/16 06:07 08/05/16 06:07 - ABG Interpretation Interpretation: ABG interpreted by me Interpretation: abnormal, respiratory acidosis - EKG Data -: EKG Interpreted by Myself EKG shows normal: sinus rhythm - Impressions ITS Impressions Chest X-Ray 08/04/16 17:39 IMPRESSION: Malpositioned endotracheal tube with tip over the right lower mainstem bronchus. On this projection, retraction of 6-[address] the tip over the mainstem bronchus. There is complete opacification of the left hemithorax likely related to lung collapse/ atelectasis. Gaseous distention of stomach. Critical results were called by Dr. Emerson Glass MD to Dr. Diony Woods on 08/04/2016 at 18:42. D/ / Emerson Glass MD / Emerson Glass MD Interpreting Provider: Emerson Glass MD Head CT 08/04/16 17:39 IMPRESSION: No acute intracranial abnormality. Air-fluid level in the right maxillary sinus. This may represent acute sinusitis but in the setting of trauma, layering hemorrhage from fracture cannot be excluded. D/ / Vishal Paul MD / Vishal Paul MD Interpreting Provider: Vishal Paul MD Cervical Spine CT 08/04/16 17:40 IMPRESSION: 1. No acute abnormality of the cervical spine. 2. Endotracheal tube appropriately positioned. Bilateral airspace opacities are partially observed in the lungs. D/ / Wilbur Garcia MD / Wilbur Garcia MD Interpreting Provider: Wilbur Garcia MD Chest X-Ray 08/04/16 18:14 IMPRESSION: Endotracheal tube tip projects over the right mainstem bronchus. D/ / Emerson Glass MD / Emerson lGass MD Interpreting Provider: Emerson Glass MD Chest X-Ray 08/04/16 18:17 IMPRESSION: Endotracheal tube tip projects over the lower thoracic trachea, approximately 1 cm above the level of the lisa. Slightly improved aeration in the left lung with persistent perihilar consolidation/ atelectasis. No pneumothorax visible. D/ / Emerson Glass MD / Emerson Glass MD Interpreting Provider: Emerson Glass MD
[2016-08-04] MEDS: *HR* Heparin 5,000 UNIT/ML VIAL SQ SCH (22:42)
[2016-08-04] MEDS: Pantoprazole 40 MG VIAL IVP SCH (22:53)
[2016-08-04 23:13] LABS: ABG Base Excess -2.7 mEq/L (-2.0 to 3.0); ABG HCO3 23.7 mEQ/L (21-27); ABG Oxygen Saturation 100 % (95-98); ABG PCO2 47 mmHg (35-45); ABG PH 7.31 pH Units (7.32-7.45); ABG PO2 196 mmHg (85-104); ABG TCO2 25.1 mEq/L (20-26); Blood Gas FiO2 50 %
[2016-08-05] MEDS: 0.9 % Sodium Chloride 1,000 ML IVC SCH ×2 (00:30→10:55)
[2016-08-05] MEDS: Lacri-Lube 3.5 GM TUBE BOTH EYES SCH ×7 (00:39→23:41)
[2016-08-05] MEDS: *HR* Heparin 5,000 UNIT/ML VIAL SQ SCH ×3 (05:22→21:26)
[2016-08-05] MEDS: Pantoprazole 40 MG VIAL IVP SCH (05:22)
[2016-08-05 05:53] LABS: ABG Base Excess -1.2 mEq/L (-2.0 to 3.0); ABG HCO3 24.3 mEQ/L (21-27); ABG Oxygen Saturation 99 % (95-98); ABG PCO2 43 mmHg (35-45); ABG PH 7.36 pH Units (7.32-7.45); ABG PO2 137 mmHg (85-104); ABG TCO2 25.6 mEq/L (20-26); Blood Gas FiO2 30 %
[2016-08-05] MEDS ORDERED: Vancomycin 1,250 MG in D5% in Water 250 ML IVPB SCH ×2 (06:00→08:00)
[2016-08-05 06:24] LABS: Basophils % 0.2 %; Eosinophils # 0.3 K/mcL (0.0-0.6); Eosinophils % 2.5 %; Hematocrit 34.4 % (35.3-44.9); Immature Granulocytes % 0.6 % (0-4); Lymphocytes # 1.2 K/mcL (0.6-4.6); Lymphocytes % 11.6 %; Mean Corpuscular Hemoglobin 29.7 pg (28.0-33.3); Mean Platelet Volume 9.1 fL (9.4-12.4); Monocytes # 0.7 K/mcL (0.0-1.3); Monocytes % 6.4 %; Neutrophils # 8.1 K/mcL (1.6-8.9); Platelet Count 253 K/mcL (140-400); Red Cell Distribution Width 13.1 % (11.5-14.5); Segmented Neutrophils % 78.7 %
[2016-08-05 06:35] LABS: BUN/Creatinine Ratio 12 (6-26); Blood Urea Nitrogen 10 mg/dL (7-20); Calcium 8.3 mg/dL (8.6-10.8); Carbon Dioxide 20 mEq/L (19-29); Chloride 112 mEq/L (98-109); Glucose 118 mg/dL (70-99); Magnesium 1.6 mg/dL (1.6-2.6); Osmolality,Calculated 294 (280-300); Potassium 3.5 mEq/L (3.5-4.5); Sodium 142 mEq/L (136-145); eGFR For African Americans > 60 (> 60); eGFR For Non-African Americans > 60 (> 60)
[2016-08-05 07:01] LABS: C-Reactive Protein 18 mg/L (Less than 5)
[2016-08-05] MEDS: Chlorhexidine Rinse 15 ML MOUTHWASH MM SCH ×2 (07:48→21:27)
[2016-08-05] MEDS ORDERED: Piperacillin/Tazobactam 3.375 GM in D5% in Water (Mini-Bag+) 100 ML IVPB SCH (08:00)
[2016-08-05] MEDS ORDERED: Magnesium Sulfate 2 GM in D5% in Water 100 ML IVPB PRN (11:17)
[2016-08-05] MEDS ORDERED: Calcium Gluconate 1,000 MG in D5% in Water 100 ML IVPB PRN (11:17)
[2016-08-05] MEDS ORDERED: Potassium Phosphate 44 MEQ in 0.9 % Sodium Chloride 250 ML IVPB PRN (11:17)
[2016-08-05 12:43] LABS: BUN/Creatinine Ratio 11 (6-26); Blood Urea Nitrogen 9 mg/dL (7-20); Calcium 8.2 mg/dL (8.6-10.8); Carbon Dioxide 20 mEq/L (19-29); Chloride 109 mEq/L (98-109); Glucose 117 mg/dL (70-99); Osmolality,Calculated 290 (280-300); Potassium 3.6 mEq/L (3.5-4.5); Sodium 140 mEq/L (136-145); eGFR For African Americans > 60 (> 60); eGFR For Non-African Americans > 60 (> 60)
[2016-08-05 13:02] LABS: Basophils % 0.2 %; Eosinophils # 0.1 K/mcL (0.0-0.6); Eosinophils % 0.7 %; Hematocrit 34.4 % (35.3-44.9); Hemoglobin 10.7 g/dL (11.5-15.4); Immature Granulocytes % 0.4 % (0-4); Lymphocytes # 0.7 K/mcL (0.6-4.6); Lymphocytes % 5.9 %; Mean Corpuscular HGB Conc 31.1 g/dL (31.6-35.5); Mean Corpuscular Hemoglobin 29.2 pg (28.0-33.3); Mean Corpuscular Volume 93.7 fL (83.0-100.0); Mean Platelet Volume 9.3 fL (9.4-12.4); Monocytes # 0.6 K/mcL (0.0-1.3); Monocytes % 5.4 %; Neutrophils # 9.6 K/mcL (1.6-8.9); Platelet Count 258 K/mcL (140-400); Red Blood Count 3.67 M/mcL (3.82-4.97); Red Cell Distribution Width 13.2 % (11.5-14.5); Segmented Neutrophils % 87.4 %
--- NOTE | 2016-08-05 17:09 | Pulmonology Consult Note ---
Date of Encounter: 08/05/16 Time of Encounter: 17:03 Assessment and Plan (1) Overdose of medication Current Visit: Yes Status: Acute Toxicology positive for benzodiazepines and barbiturates. Unclear intent of overdose. Will consult psych prior to discharge. Possible extubation tomorrow. Currently intubated on CPAP settings. Antibiotics have been discontinued as left lung has good aeration after repositioning of the endotracheal tube, white count is normal and patient is afebrile. Preliminary sputum culture shows no bacteria. Qualifiers: Encounter type: initial encounter Injury intent: undetermined intent Qualified Code(s): T50.904A - Poisoning by unspecified drugs, medicaments and biological substances, undetermined, initial encounter (2) Acute respiratory failure Current Visit: Yes Status: Acute Secondary to overdose of medications. Patient is intubated on CPAP settings with improved responsiveness. Possible extubation tomorrow. Maintenance fluids have been discontinued. Qualifiers: Respiratory failure complication: hypoxia and hypercapnia Qualified Code(s) : J96.01 - Acute respiratory failure with hypoxia; J96.02 - Acute respiratory failure with hypercapnia (3) Depression Current Visit: No Status: Chronic The patient will need [facility] consult before discharge. Will place consult once the patient is awake and alert. Unclear intention of the overdose. Qualifiers: Depression Type: unspecified Qualified Code(s): F32.9 - Major depressive disorder, single episode, unspecified (4) Bipolar disorder Current Visit: Yes Status: Chronic Psychiatry consult prior to discharge Qualifiers: Active/Remission status: remission status unspecified Qualified Code(s): F31.9 - Bipolar disorder, unspecified (5) Sinusitis Current Visit: Yes Status: Acute Air fluid level in right maxillary sinus. Antibiotics have been discontinued at this time. Reevaluate when the patient is awake for any pain or symptoms. Qualifiers: Sinusitis location: maxillary Chronicity: acute Recurrence: not specified as recurrent Qualified Code(s): J01.00 - Acute maxillary sinusitis, unspecified (6) DVT prophylaxis Current Visit: Yes Status: Acute Heparin SQ Q8hr History of Present Illness Consult date: 08/05/16 Requesting physician: Main Plummer Reason for consult: other (acute respiratory failure) Chief complaint: overdose History of present illness: This is a 55 year old female with PMH of anxiety, bipolar disorder, depression, and chronic respiratory failure on home oxygen who reported to the ED due to unresponsiveness. The patient was found to be positive for benzodiazepines and barbiturates. Although the story is unclear as to what the patient took prior to her presentation. A family member reported that the patient may have taken two vicodin, but her toxicology screen was negative for opiates. The patient was obtunded on presentation and was subsequently intubated. The patient needed adjustment of her endotracheal tube as it was found to be in the right mainstem bronchus and subsequently had good aeration of both lungs. She continues to be intubated and sedated at this time with CPAP settings. Past Med Surg Social Fam HX - Past Medical History Medical history: migraine, other Psychiatric history: anxiety, bipolar, depression - Past Surgical History Surgical History: cholecystectomy, herniorrhaphy, hysterectomy - Social History Smoking Status: Former smoker Smokeless Tobacco Status: No Alcohol use: none Drug use: none - Family History Father Living Status: Still Living Hx Family Cardiac Disorders: Yes Mother Family Member Ethnicity: Non- Living Status: Still Living Hx Family Cardiac Disorders: No Hx Family Respiratory Disorders: Yes (short of breath) Hx Family Cancer: No Hx Family GI Disorders: No Hx Family Endocrine Disorder: No Hx Family Neuromuscular Disorders: No Hx Family Neurologic Disorders: No Hx Family HEENT Disorders: No Hx Family Autoimmune Disorders: Yes (hyperthyroid) Grandfather Living Status: Hx Family Cardiac Disorders: Yes Medications and Allergies Paroxetine [Paxil] 60 mg PO HS 04/01/15 [History] Buspirone HCl [Buspar] 10 mg PO BID 09/12/15 [History] Albuterol Sulfate [Albuterol Inhaler] 2 puff IH Q4HR PRN 30 Days 05/31/16 [Rx] Budesonide/Formoterol 160/4.5 [Symbicort 160/4.5] 2 puff IH BIDR 30 Days [Rx] Gabapentin [Neurontin] 600 mg PO BID 08/01/16 [History] Naproxen [EC-Naprosyn] 375 mg PO BID 08/01/16 [History] Chlorpromazine HCl 100 mg PO QAM 08/05/16 [History] Chlorpromazine HCl 300 mg PO HS 08/05/16 [History] Cyclobenzaprine HCl 5 mg PO HS PRN 08/05/16 [History] Allergies metoclopramide [From Reglan] Allergy (Mild, Verified 07/08/16 19:43) Itching tramadol Allergy (Mild, Verified 07/08/16 19:43) Itching amitriptyline Allergy (Verified 07/08/16 19:43) Itching Sulfa (Sulfonamide Antibiotics) Allergy (Verified 07/08/16 19:43) See Comments sulfamethoxazole [From Bactrim] Allergy (Verified 07/08/16 19:43) See Comments trimethoprim [From Bactrim] Allergy (Verified 07/08/16 19:43) See Comments blisters on hands and feet lorazepam [From Ativan] Adverse Reaction (Mild, Verified 07/08/16 19:43) Anxiety benztropine [From Cogentin] Adverse Reaction (Verified 07/08/16 19:43) See Comments patient states it causes sores on tongue ciprofloxacin [From Cipro] Adverse Reaction (Verified 07/08/16 19:43) See Comments BLISTERS TO HANDS AND FEET onabotulinumtoxinA [From Botox] Adverse Reaction (Verified 07/08/16 19:43) See Comments patient states it causes neck pain sumatriptan [From Imitrex] Adverse Reaction (Verified 07/08/16 19:43) Agitated topiramate [From Topamax] Adverse Reaction (Verified 07/08/16 19:43) See Comments patient states it makes her hyper ROS unobtainable: due to endotracheal tube All Systems: A 10-system review of systems was performed and is negative for pertinent findings except as documented above in the HPI. Physical Examination Vital Signs: Vital Signs, Last 4 Hours Temp Pulse Resp BP Pulse Ox 08/05/16 16:00 93 23 156/79 98 08/05/16 15:00 97 23 157/93 98 08/05/16 14:00 88 23 104/88 98 08/05/16 13:44 23 124/76 98 08/05/16 13:17 98.9 F General appearance: other (intubated, will briefly respond to verbal stimuli without opening her eyes, does not follow commands) ENT: oropharynx moist Neck: supple Effort: normal Inspection: normal Auscultation: bilateral: clear Cardiovascular: regular rate and rhythm Gastrointestinal: normoactive bowel sounds, non-tender, non-distended Integumentary: normal Extremities: no cyanosis Musculoskeletal: no deformities other (sedated) Ventilator Settings Ventilator Settings: Ventilator Settings, Last 8 Hours Ventilator Mode VC+ Ventilator Mode VC+ Ventilator Mode VC+ Ventilator Mode VC+ Ventilator Mode VC+ Ventilator Mode VC+ Ventilator Mode VC+ Ventilator Mode VC+ Ventilator Tidal Volume 450 Setting Ventilator Tidal Volume 450 Setting Ventilator Tidal Volume 450 Setting Ventilator Tidal Volume 450 Setting Ventilator Tidal Volume 450 Setting Ventilator Tidal Volume 450 Setting Ventilator Tidal Volume 450 Setting Ventilator Tidal Volume 450 Setting Ventilator Respiratory Rate 12 Setting Ventilator Respiratory Rate 12 Setting Ventilator Respiratory Rate 12 Setting Ventilator Respiratory Rate 12 Setting Ventilator Respiratory Rate 12 Setting Ventilator Respiratory Rate 12 Setting Ventilator Respiratory Rate 12 Setting Ventilator Respiratory Rate 12 Setting Actual Respiratory Rate 23 Actual Respiratory Rate 23 Actual Respiratory Rate 23 Actual Respiratory Rate 23 Actual Respiratory Rate 23 Actual Respiratory Rate 23 Actual Respiratory Rate 23 Actual Respiratory Rate 24 Positive End Expiratory 5 Pressure Positive End Expiratory 5 Pressure Positive End Expiratory 5 Pressure Positive End Expiratory 5 Pressure Positive End Expiratory 5 Pressure Positive End Expiratory 5 Pressure Positive End Expiratory 5 Pressure Positive End Expiratory 5 Pressure Peak Inspiratory Airway 12 Pressure Peak Inspiratory Airway 12 Pressure Peak Inspiratory Airway 12 Pressure Peak Inspiratory Airway 12 Pressure Peak Inspiratory Airway 11 Pressure Peak Inspiratory Airway 11 Pressure Peak Inspiratory Airway 11 Pressure Peak Inspiratory Airway 11 Pressure Results - Laboratory Findings CBC and BMP: 08/05/16 12:16 08/05/16 12:16 ABG ABG pH 7.36 pH Units (7.32-7.45) 08/05/16 05:45 ABG pCO2 43 mmHg (35-45) 08/05/16 05:45 ABG pO2 137 mmHg (85-104) H 08/05/16 05:45 ABG O2 Saturation 99 % (95-98) H 08/05/16 05:45 Abnormal lab findings: Abnormal lab results RBC 3.67 M/mcL (3.82-4.97) L 08/05/16 12:16 Hgb 10.7 g/dL (11.5-15.4) L 08/05/16 12:16 Hct 34.4 % (35.3-44.9) L 08/05/16 12:16 MCHC 31.1 g/dL (31.6-35.5) L 08/05/16 12:16 MPV 9.3 fL (9.4-12.4) L 08/05/16 12:16 Neutrophils # 9.6 K/mcL (1.6-8.9) H 08/05/16 12:16 ABG pO2 137 mmHg (85-104) H 08/05/16 05:45 ABG O2 Saturation 99 % (95-98) H 08/05/16 05:45 Glucose 117 mg/dL (70-99) H 08/05/16 12:16 POC Glucose 194 (58-89) H 08/04/16 20:56 Calcium 8.2 mg/dL (8.6-10.8) L 08/05/16 12:16 AST 39 Units/L (5-34) H 08/04/16 18:53 Alkaline Phosphatase 164 Units/L (38-126) H 08/04/16 18:53 C-Reactive Protein 18 mg/L (Less than 5) H 08/05/16 06:07 Serum Total Protein 5.9 g/dL (6.0-8.3) L 08/04/16 18:53 Albumin 3.2 g/dL (3.5-5.0) L 08/04/16 18:53 Ur Specific [place] 1.008 (1.010-1.025) L 08/04/16 17:52 Salicylates < 5.0 mg/dL (15-30) L 08/04/16 18:53 Acetaminophen < 1.0 mcg/mL (10-30) L 08/04/16 18:53 Ur Barbiturates Screen Positive ng/mL (Oiimgk=869) H 08/04/16 17:52 U Benzodiazepines Scrn Positive ng/mL (Fvponb=839) H 08/04/16 17:52 - Microbiology Findings Microbiology Findings: Microbiology, Last 48 Hours 08/05/16 08:45 Sputum Culture - Preliminary Sputum - Clinical Findings Intake & Output: Intake & Output 08/05/16 08/05/16 08/05/16 07:59 15:59 23:59 Intake Total 146.3 / 146.3 1602 / 1602 700 / 700 Output Total 2250 / 2250 200 / 200 Balance -2103.7 / -2103.7 1402 / 1402 700 / 700 Consult Discharge Plan - Plan Referrals: NO,PCP [Primary Care Provider] - - Attending Attestation I examined this patient and my medical decision-making was reviewed with the [employer]ORNING [employer] PRODUCER/PA/Advanced Practice Nurse/Resident Physician. I agree with the documented findings, disposition and treatment plan as described except to the extent set forth below.
--- NOTE | 2016-08-05 18:22 | Electrocardiograph Report ---
[address] [place], [place] [address] Test Date: 2016-08-04 Pat Name: Angela Montoya Department: 103 Room: 12 Gender: Account Resolution Specialist: : [id number] Requested By: Diony Woods Order Number: [id number] Reading MD: Catalino Alcala MD Measurements Intervals [place] Rate: 88 P: 46 CA: 138 QRS: -5 QRSD: 86 T: 10 QT: 377 QTc: 423 Interpretive Statements SINUS RHYTHM ANTERIOR ISCHEMIA BASELINE ARTIFACT Electronically Signed On 08-05-2016 18:21:20 EDT by Catalino Alcala MD
[2016-08-05 23:10] LABS: Magnesium 2.1 mg/dL (1.6-2.6); Potassium 3.9 mEq/L (3.5-4.5)
[2016-08-06] MEDS: Lacri-Lube 3.5 GM TUBE BOTH EYES SCH ×6 (04:00→23:35)
[2016-08-06 04:59] LABS: ABG Base Excess -1.8 mEq/L (-2.0 to 3.0); ABG HCO3 21.3 mEQ/L (21-27); ABG Oxygen Saturation 99 % (95-98); ABG PCO2 30 mmHg (35-45); ABG PH 7.46 pH Units (7.32-7.45); ABG PO2 144 mmHg (85-104); ABG TCO2 22.2 mEq/L (20-26); Blood Gas FiO2 30 %
[2016-08-06 05:34] LABS: BUN/Creatinine Ratio 9 (6-26); Blood Urea Nitrogen 7 mg/dL (7-20); Calcium 9.1 mg/dL (8.6-10.8); Carbon Dioxide 20 mEq/L (19-29); Chloride 107 mEq/L (98-109); Glucose 120 mg/dL (70-99); Osmolality,Calculated 291 (280-300); Potassium 4.1 mEq/L (3.5-4.5); Sodium 141 mEq/L (136-145); eGFR For African Americans > 60 (> 60); eGFR For Non-African Americans > 60 (> 60)
[2016-08-06] MEDS: Pantoprazole 40 MG VIAL IVP SCH (06:15)
[2016-08-06] MEDS: *HR* Heparin 5,000 UNIT/ML VIAL SQ SCH ×3 (06:15→20:10)
[2016-08-06] MEDS ORDERED: Dexmedetomidine HCl 400 MCG/100 ML MLS IVC ONE (07:36)
[2016-08-06] MEDS: Dexmedetomidine HCl 400 MCG/100 ML MLS IVC SCH ×2 (08:47→18:43)
[2016-08-06] MEDS: Chlorhexidine Rinse 15 ML MOUTHWASH MM SCH ×2 (08:47→20:10)
[2016-08-06] MEDS ORDERED: Aminoglycoside Consult 1 EACH MC ONE (09:29)
--- NOTE | 2016-08-06 16:18 | Pulmonology Progress Note ---
Date of Encounter: 08/06/16 Time of Encounter: 16:16 Assessment and Plan (1) Overdose Current Visit: No Status: Acute Unclear if overdose was accidental or intentional (hx depression, bipolar disorder). Urine tox screen: (+) benzodiazepines, (+) barbiturates, (-) opiates. Patient does not have a prescription for either benzos or barbiturates. Antibiotics discontinued. Left lung aeration inproved after ET tube reposition. No leukocytosis. Afebrile. (-) preliminary sputum and blood cultures. Currently intubated on CPAP, sedate with propofol. Plan to extubate tomorrow. Qualifiers: Encounter type: initial encounter Injury intent: accidental or unintentional Qualified Code(s): T50.901A - Poisoning by unspecified drugs, medicaments and biological substances, accidental (unintentional), initial encounter (2) Acute respiratory failure Current Visit: Yes Status: Acute Secondary to overdose of medications. Plan as above. Qualifiers: Respiratory failure complication: hypoxia and hypercapnia Qualified Code(s) : J96.01 - Acute respiratory failure with hypoxia; J96.02 - Acute respiratory failure with hypercapnia (3) Depression Current Visit: No Status: Chronic Will consult psychiatry prior to discharge. Qualifiers: Depression Type: unspecified Qualified Code(s): F32.9 - Major depressive disorder, single episode, unspecified (4) Bipolar disorder Current Visit: Yes Status: Chronic Will request psychiatric consult prior to discharge. Qualifiers: Active/Remission status: remission status unspecified Qualified Code(s): F31.9 - Bipolar disorder, unspecified (5) Sinusitis Current Visit: Yes Status: Acute Incidental per CT head w/o contrast 08/04/16. Abx discontinued. Will re-evaluate for clinical significance once patient is extubated. Qualifiers: Sinusitis location: maxillary Chronicity: acute Recurrence: not specified as recurrent Qualified Code(s): J01.00 - Acute maxillary sinusitis, unspecified (6) DVT prophylaxis Current Visit: No Status: Acute Heparin SQ Q8hr. Subjective Principal diagnosis: Overdose Interval history: Ms. Montoya, a 55yo female, presented to the ER via EMS on 08/04 with altered mental status in suspected medication overdose. There was a suspicion she consumed 2 vicodin. She was poorly responsive, no evidence of trauma, not hypoglycemic, no seizure-like activity. Patient could not protect her airway and was subsequently intubated. Objective PUL Vital signs: Last Vital Signs Temp 98.6 F 08/06/16 15:40 Pulse 78 08/06/16 15:00 Resp 18 08/06/16 15:19 BP 143/81 08/06/16 15:19 Pulse Ox 98 08/06/16 15:19 General appearance: no acute distress, other (intubated, ventilated on CPAP, lightly sedated) Eyes: nonicteric Effort: normal Auscultation: bilateral: clear, diminished breath sounds Cardiovascular: regular rate and rhythm Gastrointestinal: normoactive bowel sounds, soft, non-tender Integumentary: normal Extremities: no cyanosis, no edema, pink and warm Musculoskeletal: no deformities Ventilator Settings Ventilator Settings: Ventilator Settings, Last 8 Hours Ventilator Mode CPAP Ventilator Mode CPAP Ventilator Mode CPAP Ventilator Mode CPAP Ventilator Mode CPAP Ventilator Mode CPAP Ventilator Mode CPAP Ventilator Mode CPAP Ventilator Mode CPAP Ventilator Mode CPAP Actual Respiratory Rate 20 Actual Respiratory Rate 20 Actual Respiratory Rate 20 Actual Respiratory Rate 19 Actual Respiratory Rate 19 Actual Respiratory Rate 19 Actual Respiratory Rate 20 Actual Respiratory Rate 17 Actual Respiratory Rate 17 Positive End Expiratory 5 Pressure Positive End Expiratory 5 Pressure Positive End Expiratory 5 Pressure Positive End Expiratory 5 Pressure Positive End Expiratory 5 Pressure Positive End Expiratory 5 Pressure Positive End Expiratory 5 Pressure Positive End Expiratory 5 Pressure Positive End Expiratory 5 Pressure Peak Inspiratory Airway 15 Pressure Peak Inspiratory Airway 15 Pressure Peak Inspiratory Airway 15 Pressure Peak Inspiratory Airway 15 Pressure Peak Inspiratory Airway 15 Pressure Peak Inspiratory Airway 15 Pressure Peak Inspiratory Airway 16 Pressure Peak Inspiratory Airway 15 Pressure Peak Inspiratory Airway 15 Pressure Results - Laboratory Findings CBC and BMP: 08/05/16 12:16 08/06/16 04:47 ABG ABG pH 7.46 pH Units (7.32-7.45) H 08/06/16 04:41 ABG pCO2 30 mmHg (35-45) L 08/06/16 04:41 ABG pO2 144 mmHg (85-104) H 08/06/16 04:41 ABG O2 Saturation 99 % (95-98) H 08/06/16 04:41 Abnormal lab findings: Abnormal lab results RBC 3.67 M/mcL (3.82-4.97) L 08/05/16 12:16 Hgb 10.7 g/dL (11.5-15.4) L 08/05/16 12:16 Hct 34.4 % (35.3-44.9) L 08/05/16 12:16 MCHC 31.1 g/dL (31.6-35.5) L 08/05/16 12:16 MPV 9.3 fL (9.4-12.4) L 08/05/16 12:16 Neutrophils # 9.6 K/mcL (1.6-8.9) H 08/05/16 12:16 ABG pH 7.46 pH Units (7.32-7.45) H 08/06/16 04:41 ABG pCO2 30 mmHg (35-45) L 08/06/16 04:41 ABG pO2 144 mmHg (85-104) H 08/06/16 04:41 ABG O2 Saturation 99 % (95-98) H 08/06/16 04:41 Glucose 120 mg/dL (70-99) H 08/06/16 04:47 POC Glucose 194 (58-89) H 08/04/16 20:56 AST 39 Units/L (5-34) H 08/04/16 18:53 Alkaline Phosphatase 164 Units/L (38-126) H 08/04/16 18:53 C-Reactive Protein 18 mg/L (Less than 5) H 08/05/16 06:07 Serum Total Protein 5.9 g/dL (6.0-8.3) L 08/04/16 18:53 Albumin 3.2 g/dL (3.5-5.0) L 08/04/16 18:53 Ur Specific [place] 1.008 (1.010-1.025) L 08/04/16 17:52 Salicylates < 5.0 mg/dL (15-30) L 08/04/16 18:53 Acetaminophen < 1.0 mcg/mL (10-30) L 08/04/16 18:53 Ur Barbiturates Screen Positive ng/mL (Lmgqzg=408) H 08/04/16 17:52 U Benzodiazepines Scrn Positive ng/mL (Nchaqd=106) H 08/04/16 17:52 - Microbiology Findings Microbiology Findings: Microbiology, Last 48 Hours 08/05/16 08:45 Sputum Culture - Preliminary Sputum - Clinical Findings Intake & Output: Intake & Output 08/06/16 08/06/16 08/06/16 07:59 15:59 23:59 Intake Total 60 / 60 204 / 204 Output Total 400 / 400 250 / 250 Balance -340 / -340 -46 / -46 Weight 79.2 kg Consult Discharge Plan - Plan Referrals: NO,PCP [Primary Care Provider] -
[2016-08-07] MEDS ORDERED: *HR* Midazolam HCl 2 MG/2 ML VIAL IVP STA (01:01)
[2016-08-07] MEDS: Dexmedetomidine HCl 400 MCG/100 ML MLS IVC SCH (01:49)
[2016-08-07] MEDS: *HR* Midazolam HCl 2 MG/2 ML VIAL IVP PRN ×2 (04:10→05:07)
[2016-08-07] MEDS: Lacri-Lube 3.5 GM TUBE BOTH EYES SCH ×2 (04:10→08:19)
[2016-08-07 04:17] LABS: ABG Base Excess -2.7 mEq/L (-2.0 to 3.0); ABG HCO3 22.6 mEQ/L (21-27); ABG Oxygen Saturation 98 % (95-98); ABG PCO2 40 mmHg (35-45); ABG PH 7.36 pH Units (7.32-7.45); ABG PO2 106 mmHg (85-104); ABG TCO2 23.8 mEq/L (20-26)
[2016-08-07 04:19] LABS: Blood Gas FiO2 30 %; Blood Gas PEEP 5 cm H2O; Blood Gas Respiration Rate 12; Blood Gas VT 450 cc
[2016-08-07] MEDS: Pantoprazole 40 MG VIAL IVP SCH (05:07)
[2016-08-07] MEDS: *HR* Heparin 5,000 UNIT/ML VIAL SQ SCH ×2 (05:07→20:32)
[2016-08-07] MEDS: Chlorhexidine Rinse 15 ML MOUTHWASH MM SCH (08:19)
--- NOTE | 2016-08-07 11:26 | Pulmonology Progress Note ---
Date of Encounter: 08/08/16 Time of Encounter: 08:00 Assessment and Plan (1) Overdose Current Visit: No Status: Acute Unclear if overdose was accidental or intentional (hx depression, bipolar disorder). Urine tox screen: (+) benzodiazepines, (+) barbiturates, (-) opiates. Patient does not have a prescription for either benzos or barbiturates. Antibiotics discontinued. Left lung aeration inproved after ET tube reposition. No leukocytosis. Afebrile. (-) preliminary sputum and blood cultures. Patient successfully extubated. Pupils large, equally round, and sluggish. Discontinue an. Ambulate with assistance. Up to bedside chair. Plan on transfer to step down today. Psych consulted and has evaluated the patient in the ICU today. Per Psych recommendation: (1) Restart Trileptil on the below schedule, (2) once medically stabilized, patient will need to be seen by 1A. Day 1: Trileptil 150mg PO BID. Day 2: Trileptil 300mg PO BID Days 3+: Trileptil 300mg PO QAM, Trleptil 450mg PO QHS. Check electrolytes on day 3 and correct accordingly. Qualifiers: Encounter type: initial encounter Injury intent: accidental or unintentional Qualified Code(s): T50.901A - Poisoning by unspecified drugs, medicaments and biological substances, accidental (unintentional), initial encounter (2) Acute respiratory failure Current Visit: Yes Status: Acute Secondary to overdose of medications. Plan as above. Qualifiers: Respiratory failure complication: hypoxia and hypercapnia Qualified Code(s) : J96.01 - Acute respiratory failure with hypoxia; J96.02 - Acute respiratory failure with hypercapnia (3) Depression Current Visit: No Status: Chronic Psych consult placed. Qualifiers: Depression Type: unspecified Qualified Code(s): F32.9 - Major depressive disorder, single episode, unspecified (4) Bipolar disorder Current Visit: Yes Status: Chronic Psych consult placed. Qualifiers: Active/Remission status: currently active Current bipolar episode type: depressed Current episode severity: severe Psychotic features: without psychotic features Qualified Code(s): F31.4 - Bipolar disorder, current episode depressed, severe, without psychotic features (5) Sinusitis Current Visit: Yes Status: Acute Incidental per CT head w/o contrast 08/04/16. Abx discontinued. Will re-evaluate for clinical significance once patient is more alert after extubation. Qualifiers: Sinusitis location: maxillary Chronicity: acute Recurrence: not specified as recurrent Qualified Code(s): J01.00 - Acute maxillary sinusitis, unspecified (6) DVT prophylaxis Current Visit: No Status: Acute Heparin SQ Q8hr. Subjective Principal diagnosis: Overdose Interval history: Ms. Montoya, a 55yo female, presented to the ER via EMS on 08/04 with altered mental status in suspected medication overdose. There was a suspicion she consumed 2 vicodin. She was poorly responsive, no evidence of trauma, not hypoglycemic, no seizure-like activity. Patient could not protect her airway and was subsequently intubated. ICU day 4 Patient was successfully extubated this morning. She remains comfortable. She stated she took the medications because her head hurt. Objective PUL Vital signs: Last Vital Signs Temp 98.1 F 08/07/16 11:07 Pulse 104 08/07/16 09:30 Resp 10 08/07/16 11:09 BP 131/85 08/07/16 09:30 Pulse Ox 100 08/07/16 11:09 General appearance: no acute distress, lethargic Eyes: nonicteric ENT: oropharynx moist Effort: normal Auscultation: bilateral: clear Cardiovascular: regular rate and rhythm Gastrointestinal: normoactive bowel sounds, soft, non-tender, non-distended Integumentary: normal Extremities: no cyanosis Musculoskeletal: no deformities pupils equal and round mood appropriate Ventilator Settings Ventilator Settings: Ventilator Settings, Last 8 Hours Ventilator Mode CPAP Ventilator Mode VC+ Ventilator Mode VC+ Ventilator Mode VC+ Ventilator Tidal Volume 450 Setting Ventilator Tidal Volume 450 Setting Ventilator Tidal Volume 450 Setting Ventilator Respiratory Rate 12 Setting Ventilator Respiratory Rate 12 Setting Ventilator Respiratory Rate 12 Setting Actual Respiratory Rate 19 Actual Respiratory Rate 15 Actual Respiratory Rate 12 Positive End Expiratory 5 Pressure Positive End Expiratory 5 Pressure Positive End Expiratory 5 Pressure Positive End Expiratory 5 Pressure Peak Inspiratory Airway 13 Pressure Peak Inspiratory Airway 13 Pressure Peak Inspiratory Airway 25 Pressure Results - Laboratory Findings CBC and BMP: 08/08/16 03:05 08/08/16 03:05 ABG ABG pH 7.36 pH Units (7.32-7.45) 08/07/16 04:09 ABG pCO2 40 mmHg (35-45) 08/07/16 04:09 ABG pO2 106 mmHg (85-104) H 08/07/16 04:09 ABG O2 Saturation 98 % (95-98) 08/07/16 04:09 Abnormal lab findings: Abnormal lab results RBC 3.67 M/mcL (3.82-4.97) L 08/05/16 12:16 Hgb 10.7 g/dL (11.5-15.4) L 08/05/16 12:16 Hct 34.4 % (35.3-44.9) L 08/05/16 12:16 MCHC 31.1 g/dL (31.6-35.5) L 08/05/16 12:16 MPV 9.3 fL (9.4-12.4) L 08/05/16 12:16 Neutrophils # 9.6 K/mcL (1.6-8.9) H 08/05/16 12:16 ABG pO2 106 mmHg (85-104) H 08/07/16 04:09 ABG Base Excess -2.7 mEq/L (-2.0 to 3.0) L 08/07/16 04:09 Glucose 120 mg/dL (70-99) H 08/06/16 04:47 POC Glucose 194 (58-89) H 08/04/16 20:56 AST 39 Units/L (5-34) H 08/04/16 18:53 Alkaline Phosphatase 164 Units/L (38-126) H 08/04/16 18:53 C-Reactive Protein 18 mg/L (Less than 5) H 08/05/16 06:07 Serum Total Protein 5.9 g/dL (6.0-8.3) L 08/04/16 18:53 Albumin 3.2 g/dL (3.5-5.0) L 08/04/16 18:53 Ur Specific [place] 1.008 (1.010-1.025) L 08/04/16 17:52 Salicylates < 5.0 mg/dL (15-30) L 08/04/16 18:53 Acetaminophen < 1.0 mcg/mL (10-30) L 08/04/16 18:53 Ur Barbiturates Screen Positive ng/mL (Nymyyh=267) H 08/04/16 17:52 U Benzodiazepines Scrn Positive ng/mL (Vofaye=613) H 08/04/16 17:52 - Microbiology Findings Microbiology Findings: Microbiology, Last 48 Hours 08/05/16 08:45 Sputum Culture - Final Sputum - Clinical Findings Intake & Output: Intake & Output 08/06/16 08/07/16 08/07/16 23:59 07:59 15:59 Intake Total 100 / 100 100 / 100 Output Total 500 / 500 200 / 200 50 / 50 Balance -400 / -400 -100 / -100 -50 / -50 Weight 77.927 kg Consult Discharge Plan - Plan Referrals: NO,PCP [Primary Care Provider] -
[2016-08-07] MEDS ORDERED: Ondansetron 4 MG/2 ML VIAL IVP PRN (11:38)
[2016-08-07 12:44] LABS: BUN/Creatinine Ratio 18 (6-26); Blood Urea Nitrogen 12 mg/dL (7-20); Carbon Dioxide 21 mEq/L (19-29); Chloride 107 mEq/L (98-109); Glucose 79 mg/dL (70-99); Osmolality,Calculated 289 (280-300); Potassium 3.7 mEq/L (3.5-4.5); Sodium 140 mEq/L (136-145); eGFR For African Americans > 60 (> 60); eGFR For Non-African Americans > 60 (> 60)
[2016-08-07] MEDS ORDERED: OXcarbazepine 150 MG TABLET PO SCH (14:15)
[2016-08-07] MEDS: OXcarbazepine 150 MG TABLET PO SCH ×2 (14:45→20:02)
--- NOTE | 2016-08-07 15:59 | Consult Note ---
Date of Encounter: 08/07/16 Time of Encounter: 14:10 Assessment & Recommendation (1) Bipolar disorder Current visit: Yes Status: Chronic Qualifiers: Active/Remission status: currently active Current bipolar episode type: depressed Current episode severity: severe Psychotic features: without psychotic features Qualified Code(s): F31.4 - Bipolar disorder, current episode depressed, severe, without psychotic features History of Present Illness Requesting Physician: Malcolm Rodríguez MD Reason for consult: Suspected OD History of present illness: Ms. Montoya is a 55 year old female with established h/o Bipolar disorder and panic disorder as well as Migraine HAs was admitted after being found unconcious in her house by her family. She mantains that she may have taken too many prescribed Darvocet to try to treat a bad migraine attack however her tox screen is negative for any opiates ( Tox screen have 63% accuracy rate. Usually need quantification test t confirm). Pt denies being suicidal but there are reports from family member that she may have made another OD attempt a couple of weeks before. Pt reports taht she was being treated by Dr Wolf for her mood and anxiety d/ o and takes multiple meds. he is willing to come to Psychiatry inpatient voluntarily to simplify her medication regimen and to get a better control of her anxiety. Rec: Cont 24 hrs sitter. Start Trileptal 150 mg bidx 1 d then 300 mg bid x 2 d then 300 mg am and 450 mg hs Check Chem 7 in 4 days. Notify Psychiatric [facility] when pt has been deemed medically stable to transfer to [facility] Psych[facility]. CC: Malcolm Rodríguez MD Past Med Surg Social Fam HX - Past Medical History Medical history: migraine, other - Past Psychiatric History Psychiatric history: Reports: bipolar Family psychiatric history: Unknown Family History of Suicide: Unknown - Past Surgical History Surgical History: cholecystectomy, herniorrhaphy, hysterectomy - Social History Smoking Status: Former smoker Smokeless Tobacco Status: No Alcohol use: none Drug use: none Recent Out of Country Travel Within the Last 8 Weeks: No Exposure or Possible Exposure to Illness During Travel: No - Family History Father Living Status: Still Living Hx Family Cardiac Disorders: Yes Mother Family Member Ethnicity: Non- Living Status: Still Living Hx Family Cardiac Disorders: No Hx Family Respiratory Disorders: Yes (short of breath) Hx Family Cancer: No Hx Family GI Disorders: No Hx Family Endocrine Disorder: No Hx Family Neuromuscular Disorders: No Hx Family Neurologic Disorders: No Hx Family HEENT Disorders: No Hx Family Autoimmune Disorders: Yes (hyperthyroid) Grandfather Living Status: Hx Family Cardiac Disorders: Yes Medications & Allergies Paroxetine [Paxil] 60 mg PO HS 04/01/15 [History] Buspirone HCl [Buspar] 10 mg PO BID 09/12/15 [History] Albuterol Sulfate [Albuterol Inhaler] 2 puff IH Q4HR PRN 30 Days 05/31/16 [Rx] Budesonide/Formoterol 160/4.5 [Symbicort 160/4.5] 2 puff IH BIDR 30 Days [Rx] Gabapentin [Neurontin] 600 mg PO BID 08/01/16 [History] Naproxen [EC-Naprosyn] 375 mg PO BID 08/01/16 [History] Chlorpromazine HCl 100 mg PO QAM 08/05/16 [History] Chlorpromazine HCl 300 mg PO HS 08/05/16 [History] Cyclobenzaprine HCl 5 mg PO HS PRN 08/05/16 [History] Allergies metoclopramide [From Reglan] Allergy (Mild, Verified 07/08/16 19:43) Itching tramadol Allergy (Mild, Verified 07/08/16 19:43) Itching amitriptyline Allergy (Verified 07/08/16 19:43) Itching Sulfa (Sulfonamide Antibiotics) Allergy (Verified 07/08/16 19:43) See Comments sulfamethoxazole [From Bactrim] Allergy (Verified 07/08/16 19:43) See Comments trimethoprim [From Bactrim] Allergy (Verified 07/08/16 19:43) See Comments blisters on hands and feet lorazepam [From Ativan] Adverse Reaction (Mild, Verified 07/08/16 19:43) Anxiety benztropine [From Cogentin] Adverse Reaction (Verified 07/08/16 19:43) See Comments patient states it causes sores on tongue ciprofloxacin [From Cipro] Adverse Reaction (Verified 07/08/16 19:43) See Comments BLISTERS TO HANDS AND FEET onabotulinumtoxinA [From Botox] Adverse Reaction (Verified 07/08/16 19:43) See Comments patient states it causes neck pain sumatriptan [From Imitrex] Adverse Reaction (Verified 07/08/16 19:43) Agitated topiramate [From Topamax] Adverse Reaction (Verified 07/08/16 19:43) See Comments patient states it makes her hyper Review of Systems Psychiatric: Reports: depression, anxiety, abnormal sleep pattern, suicidal ideation, anhedonia, confusion, mood swings, panic attacks Mental Status Exam Level of alertness: Alert Patient appearance: Appropriate Behavior: cooperative, nervous Psychomotor activity: Slowed Eye contact: Maintains Eye Contact Mood description: Depressed, Anxious Patient description of mood: Down Affect description: congruent with mood Speech pattern: Normal rate Speech volume: Soft/Quiet Thought process: Logical, Linear Thought content: Yes Suicidal ideation Perceptual disturbances: No Reacting to internal stimuli, No Auditory hallucinations, No Visual hallucinations Attention span: Capable of Focused Attention Memory description: Grossly Intact Patient reliability: Questionable Historian Intelligence estimate: Average Judgment: Fair Insight: Partial Results - Vital Signs Vital signs: Temp Pulse Resp BP Pulse Ox 98.0 F 120 20 131/89 100 08/07/16 15:30 08/07/16 14:00 08/07/16 14:00 08/07/16 14:00 08/07/16 14:00 - Labs Labs: Laboratory Last Values WBC 11.0 K/mcL (4.3-11.1) 08/05/16 12:16 RBC 3.67 M/mcL (3.82-4.97) L 08/05/16 12:16 Hgb 10.7 g/dL (11.5-15.4) L 08/05/16 12:16 Hct 34.4 % (35.3-44.9) L 08/05/16 12:16 MCV 93.7 fL (83.0-100.0) 08/05/16 12:16 MCH 29.2 pg (28.0-33.3) 08/05/16 12:16 MCHC 31.1 g/dL (31.6-35.5) L 08/05/16 12:16 RDW 13.2 % (11.5-14.5) 08/05/16 12:16 Plt Count 258 K/mcL (140-400) 08/05/16 12:16 MPV 9.3 fL (9.4-12.4) L 08/05/16 12:16 Immature Gran % 0.4 % (0-4) 08/05/16 12:16 Seg Neutrophils % 87.4 % 08/05/16 12:16 Lymphocytes % 5.9 % 08/05/16 12:16 Monocytes % 5.4 % 08/05/16 12:16 Eosinophils % 0.7 % 08/05/16 12:16 Basophils % 0.2 % 08/05/16 12:16 Neutrophils # 9.6 K/mcL (1.6-8.9) H 08/05/16 12:16 Lymphocytes # 0.7 K/mcL (0.6-4.6) 08/05/16 12:16 Monocytes # 0.6 K/mcL (0.0-1.3) 08/05/16 12:16 Eosinophils # 0.1 K/mcL (0.0-0.6) 08/05/16 12:16 Basophils # 0.0 K/mcL (0.0-0.2) 08/05/16 12:16 ABG pH 7.36 pH Units (7.32-7.45) 08/07/16 04:09 ABG pCO2 40 mmHg (35-45) 08/07/16 04:09 ABG pO2 106 mmHg (85-104) H 08/07/16 04:09 ABG HCO3 22.6 mEQ/L (21-27) 08/07/16 04:09 ABG Total CO2 23.8 mEq/L (20-26) 08/07/16 04:09 ABG O2 Saturation 98 % (95-98) 08/07/16 04:09 ABG Base Excess -2.7 mEq/L (-2.0 to 3.0) L 08/07/16 04:09 Respiration Rate 12 08/07/16 04:09 Blood Gas Modality ASSIST CONTROL 08/07/16 04:09 Inspired O2 30 % 08/07/16 04:09 Tidal Volume 450 cc 08/07/16 04:09 PEEP 5 cm H2O 08/07/16 04:09 Sodium 140 mEq/L (136-145) 08/07/16 12:10 Potassium 3.7 mEq/L (3.5-4.5) 08/07/16 12:10 Chloride 107 mEq/L (98-109) 08/07/16 12:10 Carbon Dioxide 21 mEq/L (19-29) 08/07/16 12:10 BUN 12 mg/dL (7-20) 08/07/16 12:10 Creatinine 0.67 mg/dL (0.57-1.11) 08/07/16 12:10 Est GFR ( Amer) > 60 (> 60) 08/07/16 12:10 Est GFR (Non-Af Amer) > 60 (> 60) 08/07/16 12:10 BUN/Creatinine Ratio 18 (6-26) 08/07/16 12:10 Glucose 79 mg/dL (70-99) 08/07/16 12:10 POC Glucose 194 (58-89) H 08/04/16 20:56 Calculated Osmolality 289 (280-300) 08/07/16 12:10 Lactic Acid 1.0 mmol/L (0.5-2.2) 08/04/16 18:53 Calcium 9.0 mg/dL (8.6-10.8) 08/07/16 12:10 Magnesium 2.1 mg/dL (1.6-2.6) 08/05/16 22:53 Total Bilirubin 0.5 mg/dL (0.2-1.2) 08/04/16 18:53 Direct Bilirubin 0.2 mg/dL (0.0-0.5) 08/04/16 18:53 Indirect Bilirubin 0.3 mg/dL (0.0-1.2) 08/04/16 18:53 AST 39 Units/L (5-34) H 08/04/16 18:53 ALT 55 Units/L (0-55) 08/04/16 18:53 Alkaline Phosphatase 164 Units/L (38-126) H 08/04/16 18:53 Ammonia 27 mcmol/L (18-72) 08/04/16 18:53 Troponin I 0.00 ng/mL (0-0.03) 08/04/16 18:53 C-Reactive Protein 18 mg/L (Less than 5) H 08/05/16 06:07 B-Natriuretic Peptide 52 pg/mL (0-100) 08/04/16 18:53 Serum Total Protein 5.9 g/dL (6.0-8.3) L 08/04/16 18:53 Albumin 3.2 g/dL (3.5-5.0) L 08/04/16 18:53 Globulin 2.7 g/dL (2.4-3.5) 08/04/16 18:53 Albumin/Globulin Ratio 1.2 (1.1-2.2) 08/04/16 18:53 TSH 1.009 mcIU/mL (0.350-4.840) 08/04/16 18:53 Urine Color Yellow (Yellow) 08/04/16 17:52 Urine Clarity Clear (Clear) 08/04/16 17:52 Urine pH 5.5 pH Units (5.0-8.0) 08/04/16 17:52 Ur Specific [place] 1.008 (1.010-1.025) L 08/04/16 17:52 Urine Protein Negative mg/dL (Neg-Trace) 08/04/16 17:52 Urine Glucose (UA) Normal mg/dL (Normal) 08/04/16 17:52 Urine Ketones Negative mg/dL (Negative) 08/04/16 17:52 Urine Blood Negative (Negative) 08/04/16 17:52 Urine Nitrite Negative (Negative) 08/04/16 17:52 Urine Bilirubin Negative (Negative) 08/04/16 17:52 Urine Urobilinogen Normal mg/dL (Normal) 08/04/16 17:52 Ur Leukocyte Esterase Negative (Negative) 08/04/16 17:52 Salicylates < 5.0 mg/dL (15-30) L 08/04/16 18:53 Urine Opiates Screen Negative ng/mL (Ipvgji=779) 08/04/16 17:52 Acetaminophen < 1.0 mcg/mL (10-30) L 08/04/16 18:53 Ur Barbiturates Screen Positive ng/mL (Buldsq=999) H 08/04/16 17:52 Ur Phencyclidine Scrn Negative ng/mL (Cutoff=25) 08/04/16 17:52 Ur Amphetamines Screen Negative ng/mL (Epghhs=8024) 08/04/16 17:52 U Benzodiazepines Scrn Positive ng/mL (Uglfjd=688) H 08/04/16 17:52 Urine Cocaine Screen Negative ng/mL (Cutoff= 300) 08/04/16 17:52 U Marijuana (THC) Screen Negative ng/mL (Cutoff = 50) 08/04/16 17:52 Ethyl Alcohol < 10 mg/dL (0-10) 08/04/16 18:53 Consult Discharge Plan - Plan Referrals: NO,PCP [Primary Care Provider] -
[2016-08-07] MEDS: Ondansetron 4 MG/2 ML VIAL IVP PRN (18:45)
[2016-08-08 03:10] LABS: Basophils % 0.3 %; Eosinophils # 0.1 K/mcL (0.0-0.6); Hematocrit 31.2 % (35.3-44.9); Hemoglobin 10.3 g/dL (11.5-15.4); Immature Granulocytes % 0.8 % (0-4); Immature Platelets 2.1 % (1.1-6.1); Lymphocytes # 1.5 K/mcL (0.6-4.6); Mean Corpuscular Hemoglobin 30.2 pg (28.0-33.3); Mean Corpuscular Volume 91.5 fL (83.0-100.0); Mean Platelet Volume 9.3 fL (9.4-12.4); Monocytes # 0.8 K/mcL (0.0-1.3); Monocytes % 6.7 %; Platelet Count 290 K/mcL (140-400); Red Blood Count 3.41 M/mcL (3.82-4.97); Red Cell Distribution Width 13.2 % (11.5-14.5); Segmented Neutrophils % 78.2 %
[2016-08-08 03:29] LABS: BUN/Creatinine Ratio 19 (6-26); Blood Urea Nitrogen 14 mg/dL (7-20); Calcium 9.4 mg/dL (8.6-10.8); Carbon Dioxide 18 mEq/L (19-29); Chloride 105 mEq/L (98-109); Glucose 88 mg/dL (70-99); Osmolality,Calculated 288 (280-300); Potassium 3.5 mEq/L (3.5-4.5); Sodium 139 mEq/L (136-145); eGFR For African Americans > 60 (> 60); eGFR For Non-African Americans > 60 (> 60)
[2016-08-08] MEDS: *HR* Heparin 5,000 UNIT/ML VIAL SQ SCH (05:05)
[2016-08-08] MEDS ORDERED: Pantoprazole 40 MG VIAL IVP SCH (06:30)
[2016-08-08] MEDS: OXcarbazepine 150 MG TABLET PO SCH (08:24)
[2016-08-08 08:35] VITALS: BP 142/80
--- NOTE | 2016-08-08 09:09 | Pulmonology Progress Note ---
Date of Encounter: 08/08/16 Time of Encounter: 09:07 Assessment and Plan (1) Overdose Current Visit: No Status: Acute Unclear if overdose was accidental or intentional (hx depression, bipolar disorder). Urine tox screen: (+) benzodiazepines, (+) barbiturates, (-) opiates. Patient does not have a prescription for either benzos or barbiturates. Antibiotics discontinued. Left lung aeration inproved after ET tube reposition. No leukocytosis. Afebrile. (-) preliminary sputum and blood cultures. Patient successfully extubated 08/07/16. Pupils large, equally round, and sluggish. - Ambulate with assistance. Up to bedside chair. - Zofran PRN nausea. Patient is medically stable and safe for transfer to . She has remained in the ICU due to lack of bed availability on the medical floor. Psych consulted and evaluated the patient yesterday afternoon. Their input is appreciated. - Plan on transfer to today. Awaiting final word from Dr. Fox, psychologist. Anticipate transfer this afternoon. Per Psych recommendation: (1) Restart Trileptil on the below schedule, (2) once medically stabilized, patient will need to be seen by [facility]. Today (Dottie) = Day 1: Trileptil 150mg PO BID. Day 2 (Fri) : Trileptil 300mg PO BID Days 3+ (Sat) : Trileptil 300mg PO QAM, Trleptil 450mg PO QHS. Check electrolytes on day 3 and correct accordingly. Qualifiers: Encounter type: initial encounter Injury intent: accidental or unintentional Qualified Code(s): T50.901A - Poisoning by unspecified drugs, medicaments and biological substances, accidental (unintentional), initial encounter (2) Acute respiratory failure Current Visit: Yes Status: Acute Secondary to overdose of medications. Plan as above. Qualifiers: Respiratory failure complication: hypoxia and hypercapnia Qualified Code(s) : J96.01 - Acute respiratory failure with hypoxia; J96.02 - Acute respiratory failure with hypercapnia (3) Depression Current Visit: No Status: Chronic Plan as above, per psych recommendations. Qualifiers: Depression Type: unspecified Qualified Code(s): F32.9 - Major depressive disorder, single episode, unspecified (4) Bipolar disorder Current Visit: Yes Status: Chronic Plan as above, per psych recommendations. Qualifiers: Active/Remission status: currently active Current bipolar episode type: depressed Current episode severity: severe Psychotic features: without psychotic features Qualified Code(s): F31.4 - Bipolar disorder, current episode depressed, severe, without psychotic features (5) Sinusitis Current Visit: Yes Status: Acute Incidental per CT head w/o contrast 08/04/16. Abx discontinued. No clinical evidence of sinusitis at this time. No clinical indication for treatment. Qualifiers: Sinusitis location: maxillary Chronicity: acute Recurrence: not specified as recurrent Qualified Code(s): J01.00 - Acute maxillary sinusitis, unspecified (6) DVT prophylaxis Current Visit: No Status: Acute Heparin SQ Q8hr. Subjective Principal diagnosis: Overdose Interval history: Ms. Montoya, a 55yo female, presented to the ER via EMS on 08/04 with altered mental status in suspected medication overdose. There was a suspicion she consumed 2 vicodin. She was poorly responsive, no evidence of trauma, not hypoglycemic, no seizure-like activity. Patient could not protect her airway and was subsequently intubated. ICU day 5 Ms. Montoya remains comfortable on room air. She is eating, urinating, and stooling well. She has no complaints at this time. Objective PUL Vital signs: Last Vital Signs Temp 97.9 F 08/08/16 07:21 Pulse 93 08/08/16 08:30 Resp 18 08/08/16 08:30 BP 142/80 08/08/16 08:30 Pulse Ox 96 08/08/16 08:30 General appearance: no acute distress, alert Eyes: nonicteric ENT: oropharynx moist Neck: supple Effort: normal Auscultation: bilateral: clear Cardiovascular: regular rate and rhythm Gastrointestinal: normoactive bowel sounds, soft, non-tender, non-distended Integumentary: normal Extremities: no cyanosis, pink and warm Musculoskeletal: no deformities normal mental status, pupils equal and round mood appropriate, affect normal Results - Laboratory Findings CBC and BMP: 08/08/16 03:05 08/08/16 03:05 ABG ABG pH 7.36 pH Units (7.32-7.45) 08/07/16 04:09 ABG pCO2 40 mmHg (35-45) 08/07/16 04:09 ABG pO2 106 mmHg (85-104) H 08/07/16 04:09 ABG O2 Saturation 98 % (95-98) 08/07/16 04:09 Abnormal lab findings: Abnormal lab results WBC 11.4 K/mcL (4.3-11.1) H 08/08/16 03:05 RBC 3.41 M/mcL (3.82-4.97) L 08/08/16 03:05 Hgb 10.3 g/dL (11.5-15.4) L 08/08/16 03:05 Hct 31.2 % (35.3-44.9) L 08/08/16 03:05 MPV 9.3 fL (9.4-12.4) L 08/08/16 03:05 Neutrophils # 9.0 K/mcL (1.6-8.9) H 08/08/16 03:05 ABG pO2 106 mmHg (85-104) H 08/07/16 04:09 ABG Base Excess -2.7 mEq/L (-2.0 to 3.0) L 08/07/16 04:09 Carbon Dioxide 18 mEq/L (19-29) L 08/08/16 03:05 POC Glucose 194 (58-89) H 08/04/16 20:56 AST 39 Units/L (5-34) H 08/04/16 18:53 Alkaline Phosphatase 164 Units/L (38-126) H 08/04/16 18:53 C-Reactive Protein 18 mg/L (Less than 5) H 08/05/16 06:07 Serum Total Protein 5.9 g/dL (6.0-8.3) L 08/04/16 18:53 Albumin 3.2 g/dL (3.5-5.0) L 08/04/16 18:53 Ur Specific [place] 1.008 (1.010-1.025) L 08/04/16 17:52 Salicylates < 5.0 mg/dL (15-30) L 08/04/16 18:53 Acetaminophen < 1.0 mcg/mL (10-30) L 08/04/16 18:53 Ur Barbiturates Screen Positive ng/mL (Vohjki=274) H 08/04/16 17:52 U Benzodiazepines Scrn Positive ng/mL (Xavfwk=123) H 08/04/16 17:52 - Microbiology Findings Microbiology Findings: Microbiology, Last 48 Hours 08/05/16 08:45 Sputum Culture - Final Sputum - Clinical Findings Intake & Output: Intake & Output 08/07/16 08/08/16 08/08/16 23:59 07:59 15:59 Intake Total 260 / 260 50 / 50 120 / 120 Output Total 200 / 200 Balance 60 / 60 50 / 50 120 / 120 Consult Discharge Plan - Plan Referrals: NO,PCP [Primary Care Provider] -
[2016-08-08] MEDS: Ondansetron 4 MG/2 ML VIAL IVP PRN ×2 (10:16)
--- NOTE | 2016-08-08 14:10 | Discharge Summary ---
Date of Encounter: 08/08/16 Time of Encounter: 14:09 - Discharge Diagnosis (1) Overdose Priority: Primary Status: Acute Comments: Unclear if overdose was accidental or intentional (hx depression, bipolar disorder). Patient intubated in ER secondary to altered mentation and inability to protect airway. Urine tox screen: (+) benzodiazepines, (+) barbiturates, (-) opiates. Antibiotics discontinued. Left lung aeration inproved after ET tube reposition. No leukocytosis. Afebrile. (-) preliminary sputum and blood cultures. Patient successfully extubated 08/07/16. Patient is medically stable and safe for discharge to . She has remained in the ICU due to lack of bed availability on the medical floor. Psych consulted and evaluated the patient yesterday afternoon. Their input is appreciated. - Plan on discharge to today. Qualifiers: Encounter type: initial encounter Injury intent: accidental or unintentional Qualified Code(s): T50.901A - Poisoning by unspecified drugs, medicaments and biological substances, accidental (unintentional), initial encounter (2) Acute respiratory failure Priority: Secondary Status: Acute Comments: Secondary to overdose. Qualifiers: Respiratory failure complication: hypoxia and hypercapnia Qualified Code(s) : J96.01 - Acute respiratory failure with hypoxia; J96.02 - Acute respiratory failure with hypercapnia (3) Depression Priority: Secondary Status: Chronic Comments: Patient accepted to for continued evaluation and therapy. Qualifiers: Depression Type: unspecified Qualified Code(s): F32.9 - Major depressive disorder, single episode, unspecified (4) Bipolar disorder Priority: Secondary Status: Chronic Comments: Patient accepted to for continued evaluation and therapy. Qualifiers: Active/Remission status: currently active Current bipolar episode type: depressed Current episode severity: severe Psychotic features: without psychotic features Qualified Code(s): F31.4 - Bipolar disorder, current episode depressed, severe, without psychotic features - Discharge Medications Home Medications: Paroxetine [Paxil] 60 mg PO HS 04/01/15 [History] Buspirone HCl [Buspar] 10 mg PO BID 09/12/15 [History] Albuterol Sulfate [Albuterol Inhaler] 2 puff IH Q4HR PRN 30 Days 05/31/16 [Rx] Budesonide/Formoterol 160/4.5 [Symbicort 160/4.5] 2 puff IH BIDR 30 Days [Rx] Gabapentin [Neurontin] 600 mg PO BID 08/01/16 [History] Naproxen [EC-Naprosyn] 375 mg PO BID 08/01/16 [History] Chlorpromazine HCl 100 mg PO QAM 08/05/16 [History] Chlorpromazine HCl 300 mg PO HS 08/05/16 [History] Cyclobenzaprine HCl 5 mg PO HS PRN 08/05/16 [History] Allergies/Adverse Reactions: Allergies metoclopramide [From Reglan] Allergy (Mild, Verified 07/08/16 19:43) Itching tramadol Allergy (Mild, Verified 07/08/16 19:43) Itching amitriptyline Allergy (Verified 07/08/16 19:43) Itching Sulfa (Sulfonamide Antibiotics) Allergy (Verified 07/08/16 19:43) See Comments sulfamethoxazole [From Bactrim] Allergy (Verified 07/08/16 19:43) See Comments trimethoprim [From Bactrim] Allergy (Verified 07/08/16 19:43) See Comments blisters on hands and feet lorazepam [From Ativan] Adverse Reaction (Mild, Verified 07/08/16 19:43) Anxiety benztropine [From Cogentin] Adverse Reaction (Verified 07/08/16 19:43) See Comments patient states it causes sores on tongue ciprofloxacin [From Cipro] Adverse Reaction (Verified 07/08/16 19:43) See Comments BLISTERS TO HANDS AND FEET onabotulinumtoxinA [From Botox] Adverse Reaction (Verified 07/08/16 19:43) See Comments patient states it causes neck pain sumatriptan [From Imitrex] Adverse Reaction (Verified 07/08/16 19:43) Agitated topiramate [From Topamax] Adverse Reaction (Verified 07/08/16 19:43) See Comments patient states it makes her hyper Procedures and tests throughout hospitalization: Microbiology 08/05/16 08:45 Sputum Culture - Final Sputum 08/04/16 18:53 Blood Culture - Preliminary Peripheral Venipuncture No growth. 08/04/16 18:53 Blood Culture - Preliminary Peripheral Venipuncture No growth. Head CT 08/04/16 17:39 IMPRESSION: No acute intracranial abnormality. Air-fluid level in the right maxillary sinus. This may represent acute sinusitis but in the setting of trauma, layering hemorrhage from fracture cannot be excluded. D/ / Vishal Paul MD / Vishal Paul MD Interpreting Provider: Vishal Paul MD Cervical Spine CT 08/04/16 17:40 IMPRESSION: 1. No acute abnormality of the cervical spine. 2. Endotracheal tube appropriately positioned. Bilateral airspace opacities are partially observed in the lungs. D/ / Wilbur Garcia MD / Wilbur Garcia MD Interpreting Provider: Wilbur Garcia MD Chest X-Ray 08/05/16 05:43 IMPRESSION: Interval repositioning of an endotracheal tube now terminating 3.5 cm above the lisa with interval re-expansion of the left lung. D/ / 08/05/2016 07:07:31 Niraj Funk MD / kylee Interpreting Provider: Niraj Funk MD X-Ray 08/05/16 08:00 IMPRESSION: Orogastric tube projects as transpyloric. Left basilar atelectasis. D/ / Bharat Lau MD / Bharat Lau MD Interpreting Provider: Bharat Lau MD Labs on day of discharge: Labs from last 24 hours 08/08/16 08/08/16 03:05 03:05 WBC 11.4 H RBC 3.41 L Hgb 10.3 L Hct 31.2 L MCV 91.5 MCH 30.2 MCHC 33.0 RDW 13.2 Plt Count 290 MPV 9.3 L Immature Gran % 0.8 Seg Neutrophils % 78.2 Lymphocytes % 13.0 Monocytes % 6.7 Eosinophils % 1.0 Basophils % 0.3 Neutrophils # 9.0 H Lymphocytes # 1.5 Monocytes # 0.8 Eosinophils # 0.1 Basophils # 0.0 Immature Plt Fraction 2.1 Sodium 139 Potassium 3.5 Chloride 105 Carbon Dioxide 18 L BUN 14 Creatinine 0.74 Est GFR ( Amer) > 60 Est GFR (Non-Af Amer) > 60 BUN/Creatinine Ratio 19 Glucose 88 Calculated Osmolality 288 Calcium 9.4 - Impressions ITS Impressions Chest X-Ray 08/05/16 05:43 IMPRESSION: Interval repositioning of an endotracheal tube now terminating 3.5 cm above the lisa with interval re-expansion of the left lung. D/ / 08/05/2016 07:07:31 Niraj Funk MD / kylee Interpreting Provider: Niraj Funk MD X-Ray 08/05/16 08:00 IMPRESSION: Orogastric tube projects as transpyloric. Left basilar atelectasis. D/ / Bharat Lau MD / Bharat Lau MD Interpreting Provider: Bharat Lau MD Date of admission: 08/04/16 21:59 Primary care physician: PCP NO Consults: 08/07/16 08:47 Consult to Psychiatry [CONS] Routine Consulting Provider: Psychiatry Patty Reason for Consult: Overdose in setting of depression and bipolar disorder. Time Notified: 08:48 Call Completed: Yes Discharging clinician: Negro Appiah Anticipated date of discharge: 08/08/16 - Patient Status Disposition: Transfer Inpatient Rehab Fac Condition: Fair Functional capacity at discharge: independent ambulation Overall status at discharge: patient is back to baseline - Discharge Instructions Follow Up With: [facility] [Outside] Additional Instructions: Thank you for voluntarily admitting yourself to for continued management and therapy. Please follow-up with your primary care provider and psychiatric care per their recommendations. - Hospital Course Hospital course: Ms. Montoya is a 55 year old female who presented to the emergency department after apparent overdose of then-unknown substance. Unresponsive to narcan. Was intubated secondary to altered mentation and inability to protect her airway. Extubated successfully 08/07/16. Patient transferred to medical floor , however due to lack of bed availability remained physically in the ICU and cared for by the ICU staff. Seen and evaluated by the Psychiatrist, accepted to [facility]. Patient discharged from the ICU to inpatient [facility] facility in medically cleared and stable condition. Time spent discussing smoking cessation with patient: 3 to 10 minutes - Time Spent with Patient Total time spent providing and/or coordinating discharge services: Less than 30 minutes Specific discharge activities: Discharged from ICU into the care of [facility]. Physical Examination Vital Signs: Vital Signs, Last 4 Hours Temp Pulse Resp Pulse Ox 08/08/16 12:13 18 96 08/08/16 12:00 78 08/08/16 11:41 98.7 F General appearance: no acute distress, alert Eyes: nonicteric ENT: oropharynx moist Neck: supple Effort: normal Inspection: normal Auscultation: bilateral: clear Cardiovascular: regular rate and rhythm Gastrointestinal: normoactive bowel sounds, soft, non-tender Integumentary: normal Extremities: no cyanosis Musculoskeletal: no deformities normal mental status mood appropriate, affect normal
== END 2016-08-08 14:18 | disposition other institution (70) | DRG 917 ==
LOC: ICNU 17:35 → EMEROO 17:35 → ICNU 20:56
PROVIDERS: ADMIT Pediatrics; ATTEND Internal Medicine

== ENCOUNTER 2016-08-08 13:58 | Inpatient (IN) ==
[2016-08-08] MEDS ORDERED: hydrOXYzine pamoate 25 MG CAPSULE PO PRN (17:48)
[2016-08-08] MEDS ORDERED: *HR* LORazepam 2 MG/ML VIAL IM PRN (17:48)
[2016-08-08] MEDS ORDERED: Mag Hydrox/Al Hydrox/Simeth 30 ML UDC PO PRN (17:48)
[2016-08-08] MEDS ORDERED: *HR* LORazepam 1 MG TABLET PO PRN (17:48)
[2016-08-08] MEDS ORDERED: Ibuprofen 400 MG TABLET PO PRN (17:48)
[2016-08-08] MEDS ORDERED: traZODone 50 MG TABLET PO PRN (17:48)
[2016-08-08] MEDS ORDERED: MOM Conc 10 ML UD.LIQ PO PRN (17:48)
[2016-08-08] MEDS ORDERED: Haloperidol Lactate 5 MG/ML VIAL IM PRN (17:48)
[2016-08-08] MEDS ORDERED: chlorproMAZINE 25 MG TABLET PO SCH (21:00)
[2016-08-08] MEDS: diazePAM 5 MG TABLET PO SCH (22:01)
[2016-08-08] MEDS: Gabapentin 300 MG CAPSULE PO SCH (22:01)
[2016-08-09] MEDS: Gabapentin 300 MG CAPSULE PO SCH ×2 (08:18→20:19)
[2016-08-09] MEDS: diazePAM 5 MG TABLET PO SCH ×3 (08:18→20:19)
[2016-08-09] MEDS ORDERED: chlorproMAZINE 25 MG TABLET PO SCH ×2 (09:00→21:00)
--- NOTE | 2016-08-09 16:13 | Psychiatry History & Physical ---
Date of Encounter: 08/09/16 Time of Encounter: 15:40 History of Present Illness Patient Stated Chief Complaint: "I took too much of that medicine" Medicare Admission Attestation: For traditional Medicare patients the provided hospital inpatient services are reasonable and necessary and in the case of services not specified as inpatient -only under 42 CFR 419.22 (n), that they are appropriately provided as inpatient services in accordance 42 CFR 412.3. For Critical Access Hospital the patient may reasonably be expected to be discharged or transferred to a hospital within 96 hours after admission to the Critical Access Hospital. Admitted From: Intrahospital Transfer Plans for Post Hospital Care: Home History of Present Illness: Ms. 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 She has had h/o 1 psych hosp years ago also at [facility]. She has been following up with Dr Guy in the Out pt clinic. She has has been on Buspar, Thorazine and Valium. She reports that she got addicted to the Valium and was taking more than prescribed. When she ran out she claims that she would go cold turkey. Last week she took too many Valium pills and 5 Percocets and eneded up comatsed. She was found by her mom who lives next door who called 911 and she ws rushed to the ER and then onto the ICU . She reports that she now wants to live and does not want to be taking these controlled substances. She reports taht she has been diagnosed with Migraine at [facility] and [facility] and a lot of times she uses this diagnosis to feed her habit. Pt has insomnia , poor energy, anhedonia , social withdrawal, poor memory and conc and periodic paranoia. She denies having voices. Past Med Surg Social Fam HX - Past Medical History Medical history: migraine, other - Past Psychiatric History Psychiatric history: Reports: anxiety, depression, panic disorder, previous psychiatric hospitalization Family psychiatric history: No Family History of Suicide: None - Past Surgical History Surgical History: cholecystectomy, herniorrhaphy, hysterectomy - Social History Smoking Status: Former smoker Smokeless Tobacco Status: No Alcohol use: none Drug use: none Occupational status: unemployed Current living situation: Home - Independent Activity Level: Independent ambulation Recent Out of Country Travel Within the Last 8 Weeks: No Exposure or Possible Exposure to Illness During Travel: No - Family History Father Living Status: Still Living Hx Family Cardiac Disorders: Yes Mother Family Member Ethnicity: Non- Living Status: Still Living Hx Family Cardiac Disorders: No Hx Family Respiratory Disorders: Yes (short of breath) Hx Family Cancer: No Hx Family GI Disorders: No Hx Family Endocrine Disorder: No Hx Family Neuromuscular Disorders: No Hx Family Neurologic Disorders: No Hx Family HEENT Disorders: No Hx Family Autoimmune Disorders: Yes (hyperthyroid) Grandfather Living Status: Hx Family Cardiac Disorders: Yes Medications & Allergies Paroxetine [Paxil] 60 mg PO HS 04/01/15 [History] Buspirone HCl [Buspar] 10 mg PO BID 09/12/15 [History] Albuterol Sulfate [Albuterol Inhaler] 2 puff IH Q4HR PRN 30 Days 05/31/16 [Rx] Budesonide/Formoterol 160/4.5 [Symbicort 160/4.5] 2 puff IH BIDR 30 Days [Rx] Gabapentin [Neurontin] 600 mg PO BID 08/01/16 [History] Naproxen [EC-Naprosyn] 375 mg PO BID 08/01/16 [History] Chlorpromazine HCl 100 mg PO QAM 08/05/16 [History] Chlorpromazine HCl 300 mg PO HS 08/05/16 [History] Cyclobenzaprine HCl 5 mg PO HS PRN 08/05/16 [History] Allergies metoclopramide [From Reglan] Allergy (Mild, Verified 07/08/16 19:43) Itching tramadol Allergy (Mild, Verified 07/08/16 19:43) Itching amitriptyline Allergy (Verified 07/08/16 19:43) Itching Sulfa (Sulfonamide Antibiotics) Allergy (Verified 07/08/16 19:43) See Comments sulfamethoxazole [From Bactrim] Allergy (Verified 07/08/16 19:43) See Comments trimethoprim [From Bactrim] Allergy (Verified 07/08/16 19:43) See Comments blisters on hands and feet lorazepam [From Ativan] Adverse Reaction (Mild, Verified 07/08/16 19:43) Anxiety benztropine [From Cogentin] Adverse Reaction (Verified 07/08/16 19:43) See Comments patient states it causes sores on tongue ciprofloxacin [From Cipro] Adverse Reaction (Verified 07/08/16 19:43) See Comments BLISTERS TO HANDS AND FEET onabotulinumtoxinA [From Botox] Adverse Reaction (Verified 07/08/16 19:43) See Comments patient states it causes neck pain sumatriptan [From Imitrex] Adverse Reaction (Verified 07/08/16 19:43) Agitated topiramate [From Topamax] Adverse Reaction (Verified 07/08/16 19:43) See Comments patient states it makes her hyper Review of Systems Psychiatric: Reports: anxiety, abnormal sleep pattern, suicidal ideation, anhedonia, confusion, memory loss, difficulty concentrating, hopelessness, panic attacks Mental Status Exam Level of alertness: Alert Patient appearance: Well Groomed, Well-nourished, Obese Behavior: cooperative, anxious, tearful Psychomotor activity: Slowed Eye contact: Maintains Eye Contact Mood description: Depressed, Anxious Affect description: congruent with mood Speech pattern: Slowed Speech volume: Soft/Quiet Thought process: Intact, Logical Thought content: Yes Intact Perceptual disturbances: No Auditory hallucinations, No Visual hallucinations Attention span: Unable to Sustain Attention Memory description: Recent Impaired Patient reliability: Reliable Historian Intelligence estimate: Average Judgment: Limited Insight: Partial Results - Vital Signs Vital signs: Temp Pulse Resp BP 97.5 F L 93 18 122/80 08/09/16 08:51 08/09/16 08:51 08/09/16 08:51 08/09/16 08:51 Assessment and Plan (1) Major depressive disorder with psychotic features Current visit: Yes Status: Acute Plan: Close observation, Suicide Precautions per unit protocol, Group Therapy, Monitor sleep, Monitor appetite, Secure weapons, Family/Supportive other meeting Risks, benefits, side effects, alternatives discussed w/pt: Yes ( Start Trileptal and check Chem 7.Taper off Valium.) Patient agreeable to treatment: Yes Plans for Post Hospital Care: Home Estimated Length of Stay ( Days): 7 Qualifiers: Major depression recurrence: recurrent Active/Remission status: currently active Major depression episode severity: severe Qualified Code(s): F33.3 - Major depressive disorder, recurrent, severe with psychotic symptoms
[2016-08-09] MEDS: OLANZapine 5 MG TAB.RAPDIS PO SCH (20:19)
[2016-08-09] MEDS: OXcarbazepine 150 MG TABLET PO SCH (20:20)
[2016-08-10] MEDS: diazePAM 5 MG TABLET PO SCH ×3 (09:43→20:44)
[2016-08-10] MEDS: OXcarbazepine 150 MG TABLET PO SCH ×2 (09:44→20:48)
[2016-08-10] MEDS: Gabapentin 300 MG CAPSULE PO SCH ×2 (09:44→20:44)
--- NOTE | 2016-08-10 20:31 | Psychiatry Progress Note ---
Date of Encounter: 08/10/16 Time of Encounter: 20:20 Subjective Interval history: Pt reports that she is feeling better. She however felt sedated from meds. She is willing to come down on Valium. She slept well last night. Review of Systems Psychiatric: Reports: anxiety, abnormal sleep pattern, anhedonia, memory loss, difficulty concentrating, hopelessness, panic attacks Objective: Exam Level of alertness: Alert Patient appearance: Well Groomed, Well-nourished, Obese Behavior: cooperative, anxious Psychomotor activity: Slowed Eye contact: Maintains Eye Contact Mood description: Depressed, Anxious Affect description: congruent with mood Speech pattern: Slowed Speech volume: Soft/Quiet Thought process: Intact, Logical Thought content: Yes Intact Perceptual disturbances: No Auditory hallucinations, No Visual hallucinations Judgment: Limited Insight: Partial Results - Vital Signs Vital Signs: Temp Pulse Resp BP 97.6 F 99 16 111/64 08/10/16 08:46 08/10/16 08:46 08/10/16 08:46 08/10/16 08:46 Assessment and Plan (1) Major depressive disorder with psychotic features Current visit: Yes Status: Acute Risks, benefits, side effects, alternatives discussed w/pt: Yes (Start Trileptal and check Chem 7.Taper off Valium.) Patient agreeable to treatment: Yes Qualifiers: Major depression recurrence: recurrent Active/Remission status: currently active Major depression episode severity: severe Qualified Code(s): F33.3 - Major depressive disorder, recurrent, severe with psychotic symptoms Consult Discharge Plan - Plan Referrals: [facility] [Outside] - 09/12/16 11:20 am (The above appointment is with Dr. Doyle. Due to previous missed appointments without notice, if you do not keep this appointment you will not be rescheduled in this practice. ) [facility] [Outside] - 08/26/16 1:00 pm (The above appointment is with Debra Weathers for counseling. When you come to your first appointment, you will have an orientation to the agency and you will meet with a counselor. Please bring the following with you to your first visit to the clinic: 1) proof of household income (two consecutive pay stubs, social security award letter, bank statement, statement [facility], child support statement, IRS 1040 or W2 form, or a statement from the person who financially supports you stating they help provide for your basic needs), 2) proof of residency (drivers license, a piece of mail showing your address, a statement from person you live with verifying you live at their address), 3) your social security card, 4) photo ID, 5) your insurance card (if you have commercial insurance you must call to obtain a prior authorization number before you arrive to your first appointment) and 6) if you do not have insurance but have applied for Medicaid, please bring verification you have applied.)
[2016-08-10] MEDS: OLANZapine 5 MG TAB.RAPDIS PO SCH (20:44)
[2016-08-10] MEDS: chlorproMAZINE 25 MG TABLET PO SCH (20:48)
[2016-08-11] MEDS: diazePAM 5 MG TABLET PO SCH ×3 (08:39→20:55)
[2016-08-11] MEDS: OXcarbazepine 150 MG TABLET PO SCH ×2 (08:40→20:55)
[2016-08-11] MEDS: Gabapentin 300 MG CAPSULE PO SCH ×2 (08:40→20:54)
[2016-08-11 08:58] LABS: BUN/Creatinine Ratio 19 (6-26); Blood Urea Nitrogen 16 mg/dL (7-20); Calcium 9.6 mg/dL (8.6-10.8); Carbon Dioxide 22 mEq/L (19-29); Chloride 105 mEq/L (98-109); Glucose 137 mg/dL (70-99); Osmolality,Calculated 295 (280-300); Potassium 3.4 mEq/L (3.5-4.5); Sodium 141 mEq/L (136-145); eGFR For African Americans > 60 (> 60); eGFR For Non-African Americans > 60 (> 60)
--- NOTE | 2016-08-11 13:30 | Psychiatry Progress Note ---
Date of Encounter: 08/11/16 Time of Encounter: 13:30 Subjective Interval history: Pt reports she is feeling better . Still wanting to come off of Valium. She has not had any big VS changes or resurgence of anxiety coming down on Valium. Review of Systems Psychiatric: Reports: anxiety, abnormal sleep pattern, anhedonia, memory loss, difficulty concentrating, hopelessness, panic attacks Objective: Exam Level of alertness: Alert Patient appearance: Well Groomed, Well-nourished, Obese Behavior: cooperative, anxious Psychomotor activity: Slowed Eye contact: Maintains Eye Contact Mood description: Depressed, Anxious Affect description: congruent with mood Speech pattern: Slowed Speech volume: Soft/Quiet Thought process: Intact, Logical Thought content: Yes Intact Perceptual disturbances: No Auditory hallucinations, No Visual hallucinations Judgment: Limited Insight: Partial Results - Vital Signs Vital Signs: Temp Pulse Resp BP 98.2 F 116 16 103/54 08/11/16 07:54 08/11/16 07:54 08/11/16 07:54 08/11/16 07:54 - Labs Labs: Laboratory Results - last 24 hr 08/11/16 08:13 Sodium 141 Potassium 3.4 L Chloride 105 Carbon Dioxide 22 BUN 16 Creatinine 0.84 Est GFR ( Amer) > 60 Est GFR (Non-Af Amer) > 60 BUN/Creatinine Ratio 19 Glucose 137 H Calculated Osmolality 295 Calcium 9.6 Assessment and Plan (1) Major depressive disorder with psychotic features Current visit: Yes Status: Acute Risks, benefits, side effects, alternatives discussed w/pt: Yes (Start Trileptal and check Chem 7.Taper off Valium.) Patient agreeable to treatment: Yes Qualifiers: Major depression recurrence: recurrent Active/Remission status: currently active Major depression episode severity: severe Qualified Code(s): F33.3 - Major depressive disorder, recurrent, severe with psychotic symptoms Consult Discharge Plan - Plan Referrals: [facility] [Outside] - 09/12/16 11:20 am (The above appointment is with Dr. Doyle. Due to previous missed appointments without notice, if you do not keep this appointment you will not be rescheduled in this practice. ) [facility] 08/26/16 1:00 pm (The above appointment is with Debra Weathers for counseling. When you come to your first appointment, you will have an orientation to the agency and you will meet with a counselor. Please bring the following with you to your first visit to the clinic: 1) proof of household income (two consecutive pay stubs, social security award letter, bank statement, statement letter from [facility], child support statement, IRS 1040 or W2 form, or a statement from the person who financially supports you stating they help provide for your basic needs), 2) proof of residency (drivers license, a piece of mail showing your address, a statement from person you live with verifying you live at their address), 3) your social security card, 4) photo ID, 5) your insurance card (if you have commercial insurance you must call to obtain a prior authorization number before you arrive to your first appointment) and 6) if you do not have insurance but have applied for Medicaid, please bring verification you have applied.)
[2016-08-11] MEDS: chlorproMAZINE 25 MG TABLET PO SCH (20:54)
[2016-08-11] MEDS: OLANZapine 5 MG TAB.RAPDIS PO SCH (20:55)
[2016-08-12 08:41] VITALS: BP 129/56
[2016-08-12] MEDS: OXcarbazepine 150 MG TABLET PO SCH (08:49)
[2016-08-12] MEDS: Gabapentin 300 MG CAPSULE PO SCH (08:49)
[2016-08-12] MEDS: diazePAM 5 MG TABLET PO SCH (08:51)
--- NOTE | 2016-08-12 12:00 | Discharge Summary ---
Date of Encounter: 08/12/16 Time of Encounter: 11:30 Diagnosis - Discharge Diagnosis (1) Depression, major, recurrent, severe with psychosis Priority: Primary Status: Acute (2) Benzodiazepine dependence Priority: Secondary Status: Acute Medications - Discharge Medications Prescriptions: ChlorproMAZINE [Thorazine] 100 mg PO HS #30 tablet Diazepam [Valium] 5 mg PO TID #20 tablet Gabapentin [Neurontin] 600 mg PO BID #14 capsule OLANZapine [Zyprexa Zydis] 5 mg PO HS #30 tab.rapdis Oxcarbazepine [Trileptal] 300 mg PO BID #60 tablet Paroxetine [Paxil] 60 mg PO HS #30 tablet Albuterol Sulfate [Albuterol Inhaler] 2 puff IH Q4HR PRN 30 Days 05/31/16 [Rx] Budesonide/Formoterol 160/4.5 [Symbicort 160/4.5] 2 puff IH BIDR 30 Days [Rx] Naproxen [EC-Naprosyn] 375 mg PO BID 08/01/16 [History] Cyclobenzaprine HCl 5 mg PO HS PRN 08/05/16 [History] Buspirone HCl [Buspar] 10 mg PO BID tablet 08/12/16 [Rx] ChlorproMAZINE [Thorazine] 100 mg PO HS #30 tablet 08/12/16 [Rx] Diazepam [Valium] 5 mg PO TID #20 tablet 08/12/16 [Rx] Gabapentin [Neurontin] 600 mg PO BID #14 capsule 08/12/16 [Rx] OLANZapine [Zyprexa Zydis] 5 mg PO HS #30 tab.rapdis 08/12/16 [Rx] Oxcarbazepine [Trileptal] 300 mg PO BID #60 tablet 08/12/16 [Rx] Paroxetine [Paxil] 60 mg PO HS #30 tablet 08/12/16 [Rx] Allergies metoclopramide [From Reglan] Allergy (Mild, Verified 07/08/16 19:43) Itching tramadol Allergy (Mild, Verified 07/08/16 19:43) Itching amitriptyline Allergy (Verified 07/08/16 19:43) Itching Sulfa (Sulfonamide Antibiotics) Allergy (Verified 07/08/16 19:43) See Comments sulfamethoxazole [From Bactrim] Allergy (Verified 07/08/16 19:43) See Comments trimethoprim [From Bactrim] Allergy (Verified 07/08/16 19:43) See Comments blisters on hands and feet lorazepam [From Ativan] Adverse Reaction (Mild, Verified 07/08/16 19:43) Anxiety benztropine [From Cogentin] Adverse Reaction (Verified 07/08/16 19:43) See Comments patient states it causes sores on tongue ciprofloxacin [From Cipro] Adverse Reaction (Verified 07/08/16 19:43) See Comments BLISTERS TO HANDS AND FEET onabotulinumtoxinA [From Botox] Adverse Reaction (Verified 07/08/16 19:43) See Comments patient states it causes neck pain sumatriptan [From Imitrex] Adverse Reaction (Verified 07/08/16 19:43) Agitated topiramate [From Topamax] Adverse Reaction (Verified 07/08/16 19:43) See Comments patient states it makes her hyper Results Procedures and tests throughout hospitalization: Completed Lab Orders Category Date Time Status Chem 7 [Basic Metabolic Panel] Stat Lab 08/11/16 08:13 Completed Provider Date of admission: 08/08/16 14:03 Primary care physician: PCP NO Discharging clinician: Isrrael Pineda Assessment and Plan - Patient/Caregiver Discharge Instructions Activity: resume usual activities as tolerated Diet: regular diet - Follow up Plan Follow up with: [facility] [Outside] - 09/12/16 11:20 am (The above appointment is with Dr. Doyle. Due to previous missed appointments without notice, if you do not keep this appointment you will not be rescheduled in this practice. ) [facility] 08[facility]26/16 1:00 pm (The above appointment is with Debra Weathers for counseling. When you come to your first appointment, you will have an orientation to the agency and you will meet with a counselor. Please bring the following with you to your first visit to the clinic: 1) proof of household income (two consecutive pay stubs, social security award letter, bank statement, statement letter from [facility], child support statement, IRS 1040 or W2 form, or a statement from the person who financially supports you stating they help provide for your basic needs), 2) proof of residency (drivers license, a piece of mail showing your address, a statement from person you live with verifying you live at their address), 3) your social security card, 4) photo ID, 5) your insurance card (if you have commercial insurance you must call to obtain a prior authorization number before you arrive to your first appointment) and 6) if you do not have insurance but have applied for Medicaid, please bring verification you have applied.) Functional capacity at discharge: independent ambulation Overall status at discharge: Stable Disposition: Home, Self-Care Hospital Course Hospital course: Ms. Montoya is a 55 year old female with history of depression with psychotic features and benzodiazepine dependence admitted for change in mental status was possible misuse of her medication. For details of admission please see H&P On the unit the patient was evaluated and her medication where reduced, Valium was reduced from 10 mg to 5 mg with a plan to taper it off, also gabapentin dose was reduced. Patient tolerated medication changes without any withdrawal problems. Prior to discharge patient was medically stable and denied any side effects of medication and planning to be compliant with follow-up and medication use as prescribed. Prescriptions ordered on a weekly basis for medication and benzodiazepine. She denied any suicidal ideation discharge and safety plans were completed by social work shared with the family. - Time Spent with Patient Total time spent providing and/or coordinating discharge services: Less than 30 minutes Quality - Multiple Antipsychotics Patient discharged on 2 or more antipsychotic medications: No Procedures - Procedures Procedures: Medication Management, Crisis Stabilization, Supportive Therapy, Group Therapy, Psychoeducational Therapy Mental Status Exam - Mental Status Exam Patient orientation: Yes Person, Yes Time, Yes Place Level of alertness: Alert Patient appearance: Appropriate, Well Groomed, Well-nourished, Obese Behavior: calm, cooperative, anxious Psychomotor activity: Normal Eye contact: Maintains Eye Contact Mood description: Euthymic/stable, Anxious Affect description: congruent with mood Speech pattern: Normal rate, Normal rhythm, Normal tone, Coherent Speech Volume: Soft/Quiet Thought process: Intact, Logical Thought Content: Yes Intact, No Suicidal ideation, No Homicidal ideation Perceptual Disturbances: No Auditory hallucinations, No Visual hallucinations Judgment: Limited Insight: Partial
== END 2016-08-12 13:15 | disposition home or self-care (01) | DRG 885 ==
LOC: 1ANU 14:03 → SUATTDRO 14:03
PROVIDERS: ADMIT Psychiatry & Neurology Psychiatry; ATTEND Psychiatry & Neurology Psychiatry

== ENCOUNTER 2016-12-25 14:52 | Observation (INO) ==
[2016-12-25] MEDS ORDERED: 0.9 % Sodium Chloride 1,000 ML IVC ONE ×2 (15:24→18:18)
--- NOTE | 2016-12-25 15:32 | Emergency Department Note ---
Disposition Clinical Impression: Abnormal EKG Hypotension Qualifiers: Hypotension type: unspecified hypotension type Qualified Code(s): I95.9 - Hypotension, unspecified Disposition: Admitted As Inpatient Referrals: NONE,PCP [Non-Partnered Physician] - Forms: ED Satisfaction Letter Time of Disposition: 17:40 General Adult HPI - General Chief complaint: ED Dizziness Stated complaint: Blood pressure bottomed out Time Seen by Provider: 12/25/16 15:07 Source: patient Mode of arrival: ambulatory Limitations: no limitations Nursing Notes Reviewed: Yes Vital Signs Reviewed: Yes - History of Present Illness HPI Narrative: 56-year-old female presents to the ED complaining of low blood pressure. She states she has a history low blood pressure and also depression. She states no cardiac history. She states that the last couple days she has, felt a little tired and weak and has had numbness and tingling in her fingertips. She states she checked her blood pressure a few times and has been between 190 systolic. She said that today her lowest when she got was 85/60. She said that she has been trying to hydrate but she does not like water so she only drinks 7-Up. She is not complaining of any headaches, vomiting, being sick, shortness of breath, chest pain, diarrhea, constipation, pain with urination, abdominal pain. She says that the numbness in her fingers happens every time she has low blood pressure. She is not having any blurry vision. Complaining of any pain at this moment and has no other symptoms other than the low blood pressure. She states normally she gets a liter of fluids via IV and feels much better. She is complaining of a low bit nausea but has not vomited. Pain Scale: 0 - Related Data Home Medications Medication Instructions Recorded Confirmed Chlorpromazine HCl 100 mg PO QAM 12/25/16 12/25/16 Chlorpromazine HCl 300 mg PO HS 12/25/16 12/25/16 Furosemide [Lasix] 20 mg PO DAILY PRN 12/25/16 12/25/16 Gabapentin [Neurontin] 600 mg PO HS 12/25/16 12/25/16 Lisinopril [Zestril] 10 mg PO DAILY 12/25/16 12/25/16 Loratadine [Claritin] 10 mg PO DAILY 12/25/16 12/25/16 OLANZapine [Zyprexa] 5 mg PO HS 12/25/16 12/25/16 OXcarbazepine [Oxcarbazepine] 600 mg PO BID 12/25/16 12/25/16 Paroxetine [Paxil] 60 mg PO DAILY 12/25/16 12/25/16 Allergies Allergy/AdvReac Type Severity Reaction Status Date / Time metoclopramide [From Reglan] Allergy Mild Itching Verified 12/07/16 16:47 tramadol Allergy Mild Itching Verified 12/07/16 16:47 amitriptyline Allergy Itching Verified 12/07/16 16:47 codeine Allergy Hives Verified 12/07/16 16:47 Sulfa (Sulfonamide Allergy See Verified 12/07/16 16:47 Antibiotics) Comments sulfamethoxazole Allergy See Verified 12/07/16 16:47 [From Bactrim] Comments trimethoprim [From Bactrim] Allergy See Verified 12/07/16 16:47 Comments lorazepam [From Ativan] AdvReac Mild Anxiety Verified 12/07/16 16:47 benztropine [From Cogentin] AdvReac See Verified 12/07/16 16:47 Comments ciprofloxacin [From Cipro] AdvReac See Verified 12/07/16 16:47 Comments onabotulinumtoxinA AdvReac See Verified 12/07/16 16:47 [From Botox] Comments sumatriptan [From Imitrex] AdvReac Agitated Verified 12/07/16 16:47 topiramate [From Topamax] AdvReac See Verified 12/07/16 16:47 Comments Constitutional: Denies: fever, chills, weakness, weight change Eyes: Denies: eye pain, eye discharge, vision change ENT ED: Denies: ear pain, throat pain, dental pain, hearing loss, epistaxis, congestion, dysphagia Cardiovascular: Denies: chest pain, palpitations, dyspnea on exertion, edema, syncope Respiratory: Denies: cough, dyspnea, wheezes, hemoptysis, stridor Gastrointestinal: Reports: nausea. Denies: abdominal pain, vomiting, diarrhea, constipation, hematemesis, melena, hematochezia Genitourinary: Denies: dysuria, frequency, hematuria, discharge Musculoskeletal: Denies: back pain, neck pain, arthralgia, myalgia Integumentary: Denies: rash, abrasion, lesions Neurological: Reports: paresthesias. Denies: headache, weakness, numbness, confusion, abnormal gait, vertigo Psychiatric: Denies: anxiety, depression, suicidal thoughts, homicidal thoughts , auditory hallucinations, visual hallucinations Endocrine: Denies: fatigue Hematological/Lymphatic: Denies: easy bleeding, easy bruising Allergic/Immunologic: Denies: facial swelling, urticaria Past Medical History - Past Medical History Medical history: Reports: migraine, other Surgical history: Reports: , cholecystectomy, herniorrhaphy, hysterectomy Psychiatric history: Reports: bipolar, depression VENEER SPLICER history: Reports: no VENEER SPLICER history, other - Social History Smoking Status: Never smoker Smokeless Tobacco Status: No Alcohol use: Reports: none Drug use: Reports: none Physical Exam - General Limitations: no limitations General appearance: alert, in no apparent distress - Head Head exam: atraumatic, normocephalic, normal inspection - Eye Eye exam: Present: normal appearance, PERRL, EOMI - ENT ENT exam: normal exam, normal oropharynx, mucous membranes moist - Neck Neck exam: Present: normal inspection, full ROM, trachea midline - Chest Chest inspection: Present: normal inspection, symmetric chest wall rise - Respiratory Respiratory exam: Present: normal lung sounds bilaterally - Cardiovascular Cardiovascular exam: Present: regular rate, normal rhythm, normal heart sounds - Abdominal Exam Abdominal exam: Present: soft, Non-Tender. Absent: tenderness, distention, guarding, rebound, rigidity - Back Exam Back exam: Present: normal inspection, full ROM. Absent: tenderness, CVA tenderness (R), CVA tenderness (L) - Neurological Exam Neurological exam: Present: alert, oriented X3 - Skin Skin exam: Present: warm, dry, intact, normal color Course Course Narrative: Mrs. Montoya is a 48-year-old female who presented to the ED complaining of low blood pressure and nausea. After looking at older blood pressures in the system is low as her blood pressures ever been and she is normally in the 120- 110 range systolic. She is not complaining of any pains, weakness, symptoms that could be causing us to think of another source for this blood pressure but due to his being lower than her past ones that have been recorded here with a little bit further workup. We will order an EKG, chest x-ray, basic labs including CBC, BMP, troponin, lactate a urine IV as well as 1 L of fluids by bolus. His agreeable to this plan. Plan is to discharge home once her blood pressure increases and all labs and tests come back negative. - Reevaluation(s) Reevaluation #1: Patient reevaluated and states that she is a little better after the 1 L fluid but is still nauseous so we will give her 4 mg of Zofran she said she is having a little bit of a headache so we will give her 600 mg of Tylenol by mouth for that. We are still awaiting labs and chest x-ray to be done. Time: 16:45 Reevaluation #2: Patient reevaluated and states after the Tylenol and Zofran she is starting to feel a little better. I spoke with her about possible admission for cardiac evaluation due to her ischemic changes on EKG. She agreed to the admission and felt like if I thought it was best that she agreed to the admission. I paged the hospitalist for possible admission for ischemic cardiac changes on EKG. She has never had a cardiac evaluation ever. Vital Signs Temperature 97.7 F 12/25/16 15:00 Pulse Rate 126 12/25/16 15:00 Respiratory Rate 16 12/25/16 15:00 Blood Pressure 87/64 12/25/16 15:00 O2 Sat by Pulse Oximetry 98 12/25/16 15:00 Temperature 97.7 F 12/25/16 15:00 Pulse Rate 80 12/25/16 18:05 Respiratory Rate 18 12/25/16 18:05 Blood Pressure 127/64 12/25/16 18:05 O2 Sat by Pulse Oximetry 97 12/25/16 18:05 Oxygen Delivery Oxygen Delivery Room Air Medical Decision Making - MDM Narrative Medical decision making narrative: Ms. Montoya is a 56-year-old female who presented to the ED and was evaluated by myself. She presented here with low blood pressure which she says she had a history of. She said she has never had a cardiac evaluation or have or had any heart problems. She is not on any medications for her heart. She states that this began a couple days ago where she started tingling in her fingers which is normal for when she is hypotensive. This happened her in the past where she came to the ED got it back a fluids and felt much better and was discharged home. Due to the [facility] cardiac evaluation and on our records not being hypotensive in the 80s systolic and being tachycardia upon coming here we decided further evaluation was needed. We did a basic evaluation of labs which were all normal including a troponin. We did a chest x-ray which was normal. Her EKG did show lateral ischemic changes in the lateral precordial leads as there being new T-wave inversions and deeper T-wave inversions when compared to an EKG done July 2016. She is given 1 bag of IV fluids which brought her pressure up to 109 systolic. She was also given Tylenol for headache as well as Zofran for nausea. Those are both better after those treatments. After seeing with her more we recommended admission and she agreed to this. Spoke with Dr. Santa hospitalist who agreed to accept the patient asked if we could consult cardiology and call them and also order an echo performed for them. This was done and I contacted cardiology and spoke with Dr. Melo who agreed with the plan and doing the echo and stated they would see them tonight or tomorrow morning. Patient was told of these results and she agreed with the plan. Patient is now admitted. - Medical Records Medical records reviewed: Yes I reviewed the patient's medical records. - Lab Data Lab results reviewed: Yes I reviewed the patient's lab results. Result diagrams: 12/25/16 16:23 12/25/16 16:23 Lab Results 12/25/16 12/25/16 12/25/16 Range/Units 16:23 16:23 16:23 WBC 9.8 (4.3-11.1) K/mcL RBC 4.02 (3.82-4.97) M/mcL Hgb 11.8 (11.5-15.4) g/dL Hct 36.5 (35.3-44.9) % MCV 90.8 (83.0-100.0) fL MCH 29.4 (28.0-33.3) pg MCHC 32.3 (31.6-35.5) g/dL RDW 13.7 (11.5-14.5) % Plt Count 278 (140-400) K/mcL MPV 9.4 (9.4-12.4) fL Immature Gran % 0.4 (0-4) % Seg Neutrophils % 79.5 % Lymphocytes % 13.6 % Monocytes % 5.0 % Eosinophils % 1.1 % Basophils % 0.4 % Neutrophils # 7.8 (1.6-8.9) K/mcL Lymphocytes # 1.3 (0.6-4.6) K/mcL Monocytes # 0.5 (0.0-1.3) K/mcL Eosinophils # 0.1 (0.0-0.6) K/mcL Basophils # 0.0 (0.0-0.2) K/mcL Sodium 138 (136-145) mEq/L Potassium 3.7 (3.5-4.5) mEq/L Chloride 104 (98-109) mEq/L Carbon Dioxide 25 (19-29) mEq/L BUN 14 (7-20) mg/dL Creatinine 1.00 (0.57-1.11) mg/dL Est GFR ( Amer) > 60 (> 60) Est GFR (Non-Af Amer) 57 L (> 60) BUN/Creatinine Ratio 14 (6-26) Glucose 85 (70-99) mg/dL Calculated Osmolality 286 (280-300) Lactic Acid 1.3 (0.5-2.2) mmol/L Calcium 9.3 (8.6-10.8) mg/dL Troponin I (0-0.03) ng/mL Urine Color (Yellow) Urine Clarity (Clear) Urine pH (5.0-8.0) pH Units Ur Specific [place] (1.010-1.025) Urine Protein (Neg-Trace) mg/dL Urine Glucose (UA) (Normal) mg/dL Urine Ketones (Negative) mg/dL Urine Blood (Negative) Urine Nitrite (Negative) Urine Bilirubin (Negative) Urine Urobilinogen (Normal) mg/dL Ur Leukocyte Esterase (Negative) Urine Microscopic RBC (0-3) per hpf Urine Microscopic WBC (0-3) per hpf Ur Squamous Epith Cells (None-Few) per lpf Calcium Oxalate Crystal Urine Bacteria (None-Few) per hpf Hyaline Casts (None-Few) per lpf Ur Culture Indicated? (NO) 12/25/16 12/25/16 Range/Units 16:23 16:55 WBC (4.3-11.1) K/mcL RBC (3.82-4.97) M/mcL Hgb (11.5-15.4) g/dL Hct (35.3-44.9) % MCV (83.0-100.0) fL MCH (28.0-33.3) pg MCHC (31.6-35.5) g/dL RDW (11.5-14.5) % Plt Count (140-400) K/mcL MPV (9.4-12.4) fL Immature Gran % (0-4) % Seg Neutrophils % % Lymphocytes % % Monocytes % % Eosinophils % % Basophils % % Neutrophils # (1.6-8.9) K/mcL Lymphocytes # (0.6-4.6) K/mcL Monocytes # (0.0-1.3) K/mcL Eosinophils # (0.0-0.6) K/mcL Basophils # (0.0-0.2) K/mcL Sodium (136-145) mEq/L Potassium (3.5-4.5) mEq/L Chloride (98-109) mEq/L Carbon Dioxide (19-29) mEq/L BUN (7-20) mg/dL Creatinine (0.57-1.11) mg/dL Est GFR ( Amer) (> 60) Est GFR (Non-Af Amer) (> 60) BUN/Creatinine Ratio (6-26) Glucose (70-99) mg/dL Calculated Osmolality (280-300) Lactic Acid (0.5-2.2) mmol/L Calcium (8.6-10.8) mg/dL Troponin I 0.01 (0-0.03) ng/mL Urine Color Dark Yellow (Yellow) Urine Clarity Clear (Clear) Urine pH 5.5 (5.0-8.0) pH Units Ur Specific [place] > 1.030 H (1.010-1.025) Urine Protein Trace (Neg-Trace) mg/dL Urine Glucose (UA) Normal (Normal) mg/dL Urine Ketones Negative (Negative) mg/dL Urine Blood Negative (Negative) Urine Nitrite Negative (Negative) Urine Bilirubin Small H (Negative) Urine Urobilinogen Normal (Normal) mg/dL Ur Leukocyte Esterase Negative (Negative) Urine Microscopic RBC 0-3 (0-3) per hpf Urine Microscopic WBC 0-3 (0-3) per hpf Ur Squamous Epith Cells Few (None-Few) per lpf Calcium Oxalate Crystal Present Urine Bacteria Few (None-Few) per hpf Hyaline Casts Many H (None-Few) per lpf Ur Culture Indicated? NO (NO) - Radiology Data Radiology results reviewed: Yes I reviewed the patient's radiology results. - EKG Data EKG #1 EKG attestation: Yes I reviewed and interpreted this EKG. EKG results narrative: EKG done at 1529 reviewed by myself and the attending. This shows a normal sinus rhythm at a rate of 83 bpm, OK interval 149, QRS 104, QTC 421, normal axis. There are no ST elevations. There are increased T wave inversions in V1 through V5 as well as lead 3. There are no signs of heart strain, or hypertrophy. There are no signs of WPW/Brugada syndrome. Compared with old EKG done 08/04/16 which also was normal sinus rhythm with T-wave inversions in V1 through V3. When compared with the old one today's has increased T wave inversions and more leads as well as deeper T wave inversions. My overall impression of this EKG is normal sinus rhythm with possible ischemia with T- wave inversions. EKG shows normal: sinus rhythm, axis, QRS complexes Rate: normal Rhythm: NSR [place]/QRS: normal When compared to previous EKG there are: changes noted Interpretation: nonspecific ST-T wave changes Attestation Statement - Attestation Attestation: I, Home Ugalde DO, examined this patient [id number] and my medical decision-making was reviewed with Dr. Myers PGY -1, Resident Physician. I agree with the documented findings, disposition and treatment plan as described except to the extent set forth below. Please see my progress notes for details. 56-year-old female presents for complaint hypotension. Long-standing issue hypotension at home. Blood pressure was 80/60 in triage. Blood pressure home was unreadable by blood pressure cuff. Workup completed including EKG troponin labs urinalysis also resulted. Chest x-ray was stable EKG showed some new progression of ischemic changes in the lateral precordial leads at this time. This is compared to an EKG from several months ago. He patient to be admitted for new subtle EKG changes and hypotension. Most EKG does could be consistent with ischemic issue secondary to the decreased perfusion. Patient otherwise has no symptoms or complaints at this time. Discussed with the hospitalist no other concerns or issues from them at this point. See detailed documentation of the conversations and consultations with the hospitalist discussed. Patient is otherwise stable.
[2016-12-25 16:33] LABS: Basophils % 0.4 %; Eosinophils # 0.1 K/mcL (0.0-0.6); Eosinophils % 1.1 %; Hematocrit 36.5 % (35.3-44.9); Hemoglobin 11.8 g/dL (11.5-15.4); Immature Granulocytes % 0.4 % (0-4); Lymphocytes # 1.3 K/mcL (0.6-4.6); Lymphocytes % 13.6 %; Mean Corpuscular HGB Conc 32.3 g/dL (31.6-35.5); Mean Corpuscular Hemoglobin 29.4 pg (28.0-33.3); Mean Corpuscular Volume 90.8 fL (83.0-100.0); Mean Platelet Volume 9.4 fL (9.4-12.4); Monocytes # 0.5 K/mcL (0.0-1.3); Neutrophils # 7.8 K/mcL (1.6-8.9); Platelet Count 278 K/mcL (140-400); Red Blood Count 4.02 M/mcL (3.82-4.97); Red Cell Distribution Width 13.7 % (11.5-14.5); Segmented Neutrophils % 79.5 %
[2016-12-25] MEDS ORDERED: Acetaminophen 325 MG TABLET PO ONE (16:40)
[2016-12-25] MEDS ORDERED: Ondansetron 4 MG/2 ML VIAL IVP ONE (16:40)
[2016-12-25 16:47] LABS: BUN/Creatinine Ratio 14 (6-26); Blood Urea Nitrogen 14 mg/dL (7-20); Calcium 9.3 mg/dL (8.6-10.8); Carbon Dioxide 25 mEq/L (19-29); Chloride 104 mEq/L (98-109); Glucose 85 mg/dL (70-99); Osmolality,Calculated 286 (280-300); Potassium 3.7 mEq/L (3.5-4.5); Sodium 138 mEq/L (136-145); eGFR For African Americans > 60 (> 60); eGFR For Non-African Americans 57 (> 60)
[2016-12-25 17:05] LABS: Bilirubin,Urine Small (Negative); Blood,Urine Negative (Negative); Clarity,Urine Clear (Clear); Color,Urine Dark Yellow (Yellow); Glucose,Urine (UA) Normal (Normal); Ketones,Urine Negative (Negative); Leukocyte Esterase,Urine Negative (Negative); Nitrite,Urine Negative (Negative); PH,Urine 5.5 pH Units (5.0-8.0); Protein,Urine Trace mg/dL (Neg-Trace); Specific Gravity,Urine > 1.030 (1.010-1.025); Urobilinogen,Urine Normal (Normal)
[2016-12-25 17:08] LABS: RBC,Urine 0-3 per hpf (0-3); WBC,Urine 0-3 per hpf (0-3)
[2016-12-25 17:27] LABS: Calcium Oxalate Crystals,Urine Present; Hyaline Casts,Urine Many per lpf (None-Few); Squamous Epithelial Cell,Urine Few per lpf (None-Few)
[2016-12-25 17:28] LABS: Bacteria,Urine Few per hpf (None-Few)
[2016-12-25] MEDS ORDERED: Ketorolac 30 MG/ML VIAL IVP STA (18:18)
[2016-12-25] MEDS ORDERED: Metoclopramide 10 MG/2 ML VIAL IVP STA (18:18)
[2016-12-25] MEDS ORDERED: Naloxone 0.4 MG/ML INJ IVP PRN (18:23)
[2016-12-25] MEDS ORDERED: Furosemide 20 MG TABLET PO PRN (18:40)
--- NOTE | 2016-12-25 18:55 | Internal Med History&Physical ---
<Kaylan Cox - Last Filed: 12/25/16 20:13> Date of Encounter: 12/25/16 Time of Encounter: 18:46 Assessment and Plan (1) Near syncope Current visit: Yes Status: Acute for 2-3 days prior to admission. Patient reports "feeling like she is going to pass out when standing". Also with headache, bilateral hands and feet paresthesia. Neurologically intact on exam. Etiology unknown at this time; possibly secondary to dehydration with hypotension. STAT Head CT ordered in ED. Bilateral carotids, brain MRI pending. Hold on ASA until head CT resulted. Consult Neurology if work-up is revealing and/or sx's persist. Headache cocktail for headache (2) Chest pain Current visit: Yes Status: Acute intermittent for 2-3 weeks prior to admission. No chest pain on exam. Initial troponin negative, EKG with new T-wave inversions. Cycle troponin, check echo. Cardiology consult and ED. Qualifiers: Chest pain type: unspecified Qualified Code(s): R07.9 - Chest pain, unspecified (3) Essential hypertension Current visit: Yes Status: Acute per hx. Hypertensive in ED; BP improved with IV fluids. Holding home lasix as this could be contributing to dehydration, near syncope. Cont home DILCIA with hold parameters. . Monitor BP and titrate PRN (4) Bipolar disorder Current visit: No Status: Chronic per hx. Cont home medication regimen. Qualifiers: Qualified Code(s): F31.9 - Bipolar disorder, unspecified (5) DVT prophylaxis Current visit: No Status: [facility] Internal Medicine - H&P: HPI Admitted From: Home History of present illness: Ms. Montoya is a 56 year old female Past Med Surg Social Fam HX - Past Medical History Medical history: migraine, other Psychiatric history: bipolar, depression - Past Surgical History Surgical History: , cholecystectomy, herniorrhaphy, hysterectomy - Social History Smoking Status: Never smoker Smokeless Tobacco Status: No Alcohol use: none Drug use: none - Family History Father Living Status: Still Living Hx Family Cardiac Disorders: Yes Mother Family Member Ethnicity: Non- Living Status: Still Living Hx Family Cardiac Disorders: No Hx Family Respiratory Disorders: Yes (short of breath) Hx Family Cancer: No Hx Family GI Disorders: No Hx Family Endocrine Disorder: No Hx Family Neuromuscular Disorders: No Hx Family Neurologic Disorders: No Hx Family HEENT Disorders: No Hx Family Autoimmune Disorders: Yes (hyperthyroid) Grandfather Living Status: Hx Family Cardiac Disorders: Yes Internal Medicine - H&P: Meds Chlorpromazine HCl 100 mg PO QAM 12/25/16 [History] Chlorpromazine HCl 300 mg PO HS 12/25/16 [History] Furosemide [Lasix] 20 mg PO DAILY PRN 12/25/16 [History] Gabapentin [Neurontin] 600 mg PO HS 12/25/16 [History] Lisinopril [Zestril] 10 mg PO DAILY 12/25/16 [History] Loratadine [Claritin] 10 mg PO DAILY 12/25/16 [History] OLANZapine [Zyprexa] 5 mg PO HS 12/25/16 [History] OXcarbazepine [Oxcarbazepine] 600 mg PO BID 12/25/16 [History] Paroxetine [Paxil] 60 mg PO DAILY 12/25/16 [History] 3 Allergy/AdvReac Type Severity Reaction Status Date / Time metoclopramide [From Reglan] Allergy Mild Itching Verified 12/07/16 16:47 tramadol Allergy Mild Itching Verified 12/07/16 16:47 amitriptyline Allergy Itching Verified 12/07/16 16:47 codeine Allergy Hives Verified 12/07/16 16:47 Sulfa (Sulfonamide Allergy See Verified 12/07/16 16:47 Antibiotics) Comments sulfamethoxazole Allergy See Verified 12/07/16 16:47 [From Bactrim] Comments trimethoprim [From Bactrim] Allergy See Verified 12/07/16 16:47 Comments lorazepam [From Ativan] AdvReac Mild Anxiety Verified 12/07/16 16:47 benztropine [From Cogentin] AdvReac See Verified 12/07/16 16:47 Comments ciprofloxacin [From Cipro] AdvReac See Verified 12/07/16 16:47 Comments onabotulinumtoxinA AdvReac See Verified 12/07/16 16:47 [From Botox] Comments sumatriptan [From Imitrex] AdvReac Agitated Verified 12/07/16 16:47 topiramate [From Topamax] AdvReac See Verified 12/07/16 16:47 Comments All Systems PM: A 10-system review of systems was performed and is negative for pertinent findings except as documented above in the HPI. - Constitutional Vitals: Temp Pulse Resp BP Pulse Ox 97.7 F 80 18 127/64 97 12/25/16 15:00 12/25/16 18:05 12/25/16 18:05 12/25/16 18:05 12/25/16 18:05 Internal Med - H&P Results - Labs CBC & Chem 7: 12/25/16 16:23 12/25/16 16:23 <Sharmaine Solis W - Last Filed: 12/26/16 04:12> Date of Encounter: 12/26/16 Internal Medicine - H&P: HPI History of present illness: Ms. Montoya is a 56 year old female All Systems PM: A 10-system review of systems was performed and is negative for pertinent findings except as documented above in the HPI. - Constitutional Vitals: Temp Pulse Resp BP Pulse Ox 97.6 F 86 18 106/70 100 12/26/16 03:15 12/26/16 03:15 12/26/16 03:15 12/26/16 03:15 12/26/16 03:15 Internal Med - H&P Results - Labs CBC & Chem 7: 12/25/16 16:23 12/25/16 16:23 Labs: Cardiac Enzymes 12/25/16 Range/Units 22:40 Troponin I 0.00 (0-0.03) ng/mL - Impressions ITS Impressions Brain MRI 12/25/16 19:32 IMPRESSION: Mild chronic small vessel ischemic disease. 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 No acute intracranial abnormality. D/ / 12/25/2016 21:40:42 Carrie Ricketts MD / Dolores Alex Interpreting Provider: Carrie Ricketts MD - Attending Attestation Seen/examined. - Near syncope could be due to dehydration and volume depletion as evidenced by tachycardia and hypotension on admission. Hold lisinopril (indication:migraine) and Lasix (indication: leg swelling). Give IVF/encourage oral fluids. - Atypical chest pain, troponin x 2 negative, EKG has worsening TWI than baseline. Doubt ACS. Cardiology consult, may consider a stress test once hypotension resolves. - Atypical numbness/tingling is likely in the setting of near syncope or psychosomatic, and not due to acute neurological process.
[2016-12-25] MEDS: OLANZapine 5 MG TAB.RAPDIS PO SCH (23:05)
[2016-12-25] MEDS: Gabapentin 300 MG CAPSULE PO SCH (23:05)
[2016-12-25] MEDS: OXcarbazepine 150 MG TABLET PO SCH (23:05)
[2016-12-26] MEDS: Acetaminophen 325 MG TABLET PO PRN ×2 (01:36→16:27)
[2016-12-26] MEDS: chlorproMAZINE 25 MG TABLET PO SCH ×3 (01:41→20:58)
[2016-12-26] MEDS: 0.9 % Sodium Chloride 1,000 ML IVC SCH ×2 (01:46→12:05)
[2016-12-26] MEDS ORDERED: Ondansetron 4 MG/2 ML VIAL IVP PRN (03:30)
[2016-12-26] MEDS: Ondansetron 4 MG/2 ML VIAL IVP PRN ×3 (03:59→20:59)
[2016-12-26 05:47] LABS: Hematocrit 29.9 % (35.3-44.9); Immature Platelets 2.5 % (1.1-6.1); Mean Corpuscular HGB Conc 32.4 g/dL (31.6-35.5); Mean Corpuscular Hemoglobin 29.8 pg (28.0-33.3); Mean Corpuscular Volume 91.7 fL (83.0-100.0); Mean Platelet Volume 9.7 fL (9.4-12.4); Red Blood Count 3.26 M/mcL (3.82-4.97); Red Cell Distribution Width 13.8 % (11.5-14.5)
[2016-12-26 05:48] LABS: Hemoglobin 9.7 g/dL (11.5-15.4)
[2016-12-26 06:02] LABS: Alanine Aminotransferase 44 Units/L (0-55); Albumin 3.2 g/dL (3.5-5.0); Albumin/Globulin Ratio 1.4 (1.1-2.2); Alkaline Phosphatase 213 Units/L (38-126); Aspartate Amino Transferase 24 Units/L (5-34); BUN/Creatinine Ratio 16 (6-26); Bilirubin,Total 0.3 mg/dL (0.2-1.2); Blood Urea Nitrogen 12 mg/dL (7-20); Calcium 8.5 mg/dL (8.6-10.8); Carbon Dioxide 22 mEq/L (19-29); Chloride 106 mEq/L (98-109); Chol/HDL Ratio 3.9 (0-4.9); Cholesterol 199 mg/dL (< 200); Globulin 2.3 g/dL (2.4-3.5); Glucose 98 mg/dL (70-99); HDL Cholesterol 51 mg/dL (40-59); LDL Cholesterol,Calculated 129 mg/dL (0-99); Lipase 19 Units/L (8-78); Osmolality,Calculated 280 (280-300); Potassium 3.7 mEq/L (3.5-4.5); Sodium 135 mEq/L (136-145); Total Protein 5.5 g/dL (6.0-8.3); Triglycerides 95 mg/dL (< 150); eGFR For African Americans > 60 (> 60); eGFR For Non-African Americans > 60 (> 60)
--- NOTE | 2016-12-26 08:37 | Cardiology Consult Note ---
Date of Encounter: 12/26/16 Time of Encounter: 08:35 Assessment and Plan (1) Hypotension Current Visit: Yes Status: Acute Per Cardiology: Patient reportedly started on lisinopril 10 mg by mouth daily about one month ago according to patient for migraines. Does not check systolic blood pressures at home, however reports history of low blood pressures prior to starting medication. Upon arrival patient was hypotensive systolically in the 80s which is now responded to fluids. Orthostatics negative. DILCIA inhibitor on hold. Encouraged to monitor heart rate and blood pressure home. Head CT and MRI with no acute findings. Denies any syncope or falls. Of note, H&H with downward trend , however denies any bleeding or blood loss-- suspect dilutional component. Continue to monitor. Qualifiers: Hypotension type: unspecified hypotension type Qualified Code(s): I95.9 - Hypotension, unspecified (2) Chest pain Current Visit: Yes Status: Acute Per Cardiology: Atypical symptoms and reproducible today with palpation. Troponins negative 3. Echo from March 2016 showed EF 60-65%, mild diastolic dysfunction, normal RV structure and function, no significant valvular dysfunction, NSWMA. ECG is reviewed and comparable to baseline. Recommend evaluation for noncardiac causes of her symptoms. Discussed with patient potential further ischemic evaluation in terms of stress testing, however agreeable to monitor and observe and follow- up as an outpatient. We'll sign off, reconsult as needed, follow-up scheduled. Discussed and reviewed with Dr. Alcala. Qualifiers: Chest pain type: unspecified Qualified Code(s): R07.9 - Chest pain, unspecified Discussion w patient/family: The assessment and plan as outlined above was discussed with the patient who expressed understanding and agreement. All questions were answered. Thank you for involving us in the care of your patient. Please call with any questions. History of Present Illness Consult date: 12/26/16 Consult reason: Dizzines, CP Chief complaint: Lighteheadedness History of present illness: Ms. Montoya is a 56 year old female with a relevant past medical history of migraines, anxiety, bipolar disorder, depression, and past hx of nicotine abuse. Cardiology consult for chest pain symptoms and lightheadedness. Patient reports epigastric to midsternal chest soreness with palpation. She denies any chest pain with exertional activities. She denies any increased shortness of breath at rest or with exertion from her baseline. Regarding her dizziness, she reports typically her blood pressures on the lower side and was recently started on lisinopril 10 mg by mouth daily about one month ago by her PCP for reported treatment of migraines. She reports she has not been checking blood pressures recently. Also takes Lasix as needed, however has not needed the past 3 weeks. Symptoms currently resolved. She denies any syncope or falls. She reports she did experience lightheadedness with some tunnel vision. Past Med Surg Social Fam HX - Past Medical History Attestation: Yes The following information was validated with the patient. Source: patient, old records reviewed Medical history: migraine, other Psychiatric history: bipolar, depression - Past Surgical History Surgical History: , cholecystectomy, herniorrhaphy, hysterectomy - Social History Smoking Status: Former smoker Smokeless Tobacco Status: No Alcohol use: none Drug use: none - Family History Father Living Status: Still Living Hx Family Cardiac Disorders: Yes Hx Family Genitourinary Disorders: Yes (Caths due to alcoholism) Mother Family Member Ethnicity: Non- Living Status: Still Living Hx Family Cardiac Disorders: No Hx Family Respiratory Disorders: Yes (short of breath) Hx Family Cancer: No Hx Family GI Disorders: No Hx Family Endocrine Disorder: No Hx Family Neuromuscular Disorders: No Hx Family Neurologic Disorders: No Hx Family HEENT Disorders: No Hx Family Autoimmune Disorders: Yes (hyperthyroid) Grandfather Living Status: Hx Family Cardiac Disorders: Yes Medications and Allergies Chlorpromazine HCl 100 mg PO QAM 12/25/16 [History] Chlorpromazine HCl 300 mg PO HS 12/25/16 [History] Furosemide [Lasix] 20 mg PO DAILY PRN 12/25/16 [History] Gabapentin [Neurontin] 600 mg PO HS 12/25/16 [History] Lisinopril [Zestril] 10 mg PO DAILY 12/25/16 [History] Loratadine [Claritin] 10 mg PO DAILY 12/25/16 [History] OLANZapine [Zyprexa] 5 mg PO HS 12/25/16 [History] OXcarbazepine [Oxcarbazepine] 600 mg PO BID 12/25/16 [History] Paroxetine [Paxil] 60 mg PO DAILY 12/25/16 [History] 3 Allergy/AdvReac Type Severity Reaction Status Date / Time metoclopramide [From Reglan] Allergy Mild Itching Verified 12/07/16 16:47 tramadol Allergy Mild Itching Verified 12/07/16 16:47 amitriptyline Allergy Itching Verified 12/07/16 16:47 codeine Allergy Hives Verified 12/07/16 16:47 Sulfa (Sulfonamide Allergy See Verified 12/07/16 16:47 Antibiotics) Comments sulfamethoxazole Allergy See Verified 12/07/16 16:47 [From Bactrim] Comments trimethoprim [From Bactrim] Allergy See Verified 12/07/16 16:47 Comments lorazepam [From Ativan] AdvReac Mild Anxiety Verified 12/07/16 16:47 benztropine [From Cogentin] AdvReac See Verified 12/07/16 16:47 Comments ciprofloxacin [From Cipro] AdvReac See Verified 12/07/16 16:47 Comments onabotulinumtoxinA AdvReac See Verified 12/07/16 16:47 [From Botox] Comments sumatriptan [From Imitrex] AdvReac Agitated Verified 12/07/16 16:47 topiramate [From Topamax] AdvReac See Verified 12/07/16 16:47 Comments All Systems Review: A 10-system review of systems was performed and is negative for pertinent findings except as documented above in the HPI. - Cardiovascular Cardiovascular: as per HPI, chest pain at rest, lightheadedness - Gastrointestinal Gastrointestinal: abdominal pain Physical Examination Vital Signs, Last 4 Hours Temp Pulse Resp BP Pulse Ox 12/26/16 07:14 98.0 F 84 16 120/70 98 General: Conversant, No Apparent Distress HEENT: Atraumatic, Normocephaly, Mucus Membranes Moist Neck: No JVD, Normal carotid pulses Cardiac: Reg Rate and Rhythm, Normal S1 and S2, No Murmur Lungs: Normal Breath Sounds, No Wheeze, Rales, Rhonchi Neuro: Alert and responsive, No focal deficits noted Abdomen: Soft, Non-Tender, Other (Epigastric to midsternal chest discomfort reproducible upon exam today with palpation) Skin: No rashes noted on visualized skin Musculoskeletal: No Chest Wall Tenderness Extremities: No Clubbing, No Cyanosis, No Edema, Normal Pulses Results 12/26/16 05:14 12/26/16 05:14 Lab Results Laboratory Tests 12/25/16 12/25/16 12/25/16 16:23 16:23 22:40 Hgb 11.8 Hct 36.5 AST ALT Troponin I 0.01 0.00 B-Natriuretic Peptide LDL Cholesterol, Calc 12/26/16 12/26/16 12/26/16 05:14 05:14 05:14 Hgb 9.7 L D Hct 29.9 L AST 24 ALT 44 Troponin I B-Natriuretic Peptide 21 LDL Cholesterol, Calc 129 H 12/26/16 05:14 Hgb Hct AST ALT Troponin I 0.00 B-Natriuretic Peptide LDL Cholesterol, Calc ITS Impressions Chest X-Ray 12/25/16 15:24 IMPRESSION: 1. No active pulmonary disease. D/ / Danny Esquivel MD / Danny Esquivel MD Interpreting Provider: Danny Esquivel MD Head CT 12/25/16 18:18 IMPRESSION: No acute intracranial abnormality. D/ / Greyson Juarez MD / Greyson Juarez MD Interpreting Provider: Greyson Juarez MD Brain MRI 12/25/16 19:32 IMPRESSION: Mild chronic small vessel ischemic disease. 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 No acute intracranial abnormality. D/ / 12/25/2016 21:40:42 Carrie Ricketts MD / Dolores Alex Interpreting Provider: Carrie Ricketts MD Active Medications Acetaminophen (Tylenol) 650 mg PO Q6HR PRN PRN Reason: Mild Pain (1-3) Stop: 06/26/17 18:24 Last Admin: 12/26/16 01:36 Dose: 650 mg Calcium Carbonate (Tums) 1,000 mg PO Q4HR PRN; Protocol PRN Reason: Heartburn Stop: 06/27/17 00:04 Last Admin: 12/26/16 00:51 Dose: 1,000 mg Chlorpromazine HCl (Thorazine) 100 mg PO DAILY [facility] Stop: 06/27/17 09:01 Last Admin: 12/26/16 09:59 Dose: 100 mg Chlorpromazine HCl (Thorazine) 300 mg PO HS [facility] Stop: 06/27/17 00:58 Last Admin: 12/26/16 01:41 Dose: 300 mg Gabapentin (Neurontin) 600 mg PO HS [facility] Stop: 06/26/17 21:01 Last Admin: 12/25/16 23:05 Dose: 600 mg Sodium Chloride (0.9 % Sodium Chloride) 1,000 mls @ 75 mls/hr IVC .[id number] [facility] Stop: 06/26/17 20:31 Last Admin: 12/26/16 01:46 Dose: 75 mls/hr Naloxone HCl (Narcan) 0.4 mg IVP Q2MIN PRN PRN Reason: Opioid Reversal Stop: 06/26/17 18:24 Olanzapine (Zyprexa Zydis) 5 mg PO HS [facility] Stop: 06/26/17 21:01 Last Admin: 12/25/16 23:05 Dose: 5 mg Ondansetron HCl (Zofran) 4 mg IVP Q8HR PRN; Protocol PRN Reason: Nausea Stop: 06/27/17 03:28 Last Admin: 12/26/16 03:59 Dose: 4 mg Oxcarbazepine (Trileptal) 600 mg PO BID [facility] Stop: 06/26/17 21:01 Last Admin: 12/26/16 09:58 Dose: 600 mg Paroxetine HCl (Paxil) 60 mg PO [facility] PRN Reason: Protocol Stop: 06/27/17 00:57 Last Admin: 12/26/16 01:35 Dose: 60 mg - Imaging and Cardiology Echo: report reviewed - EKG Interpretation EKG results cardiology: personally reviewed (ECG showed sinus rhythm in the 80s with flipped T waves, however comparable to baseline ECG.) Consult Discharge Plan - Plan Referrals: Iman Monae, F[employer]INE[employer] [Primary Care Provider] -
[2016-12-26] MEDS: OXcarbazepine 150 MG TABLET PO SCH ×2 (09:58→20:57)
[2016-12-26] MEDS ORDERED: GI Cocktail 40 ML EACH PO ONE (11:58)
--- NOTE | 2016-12-26 16:56 | Electrocardiograph Report ---
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
--- NOTE | 2016-12-26 17:55 | Internal Med Progress Note ---
Date of Encounter: 12/26/16 Time of Encounter: 08:30 - Assessment and plan (1) Near syncope Current Visit: Yes Status: Acute Assessment and plan: Patient reports 2-3 day history of near syncope prior to admission. She says she feels like she will pass out when she standing. Carotids show 6-79% stenosis in left ICA, right side within normal limits. Brain MRI showed mild chronic small vessel ischemic disease with prior injury or infarct in right parietal lobe. No acute intracranial abnormality. Head CT without acute intracranial abnormality. Urine was negative. Liver enzymes are within normal limits. Serum glucose also within normal limits. Patient has no ache I, BNP is within normal limits, troponin negative. Orthostatic vital signs are within normal limits. Continue IV fluids Fall precautions Continue to monitor labs and vital signs Consider orthotic consult if still complaint in the morning. (2) Chest pain Current Visit: Yes Status: Acute Assessment and plan: Patient reports chest pain that is more epigastric in nature than cardiac. She is tender in epigastric area. She reports the chest pain radiating through to her back, she reports nausea immediately requests Phenergan when I enter the room. Cardiology was consulted. They have signed off and will follow up outpatient. Echocardiogram with LVEF of 60% normal systolic function, mild diastolic dysfunction, no significant valvular dysfunction. Opponens are negative 3. On arrival patient had EKG with ST deviation, normal sinus rhythm. Cardiology has reviewed this EKG and it is an insignificant finding. Rate was 83, DE interval 149, QRS 104, QTC 421. Patient was given a GI cocktail as well as nausea medication through the day. She has denied relief from this. Will start Carafate tonight and switch her to a clear liquid diet. Qualifiers: Chest pain type: unspecified Qualified Code(s): R07.9 - Chest pain, unspecified (3) Tobacco use disorder Current Visit: Yes Status: Chronic Assessment and plan: Will discuss smoking cessation prior to discharge. (4) Bipolar disorder Current Visit: No Status: Chronic Assessment and plan: Continue home medications. Qualifiers: Active/Remission status: remission status unspecified Qualified Code(s): F31.9 - Bipolar disorder, unspecified (5) Essential hypertension Current Visit: Yes Status: Chronic Assessment and plan: Well controlled. Continue home medications. (6) DVT prophylaxis Current Visit: No Status: Acute Assessment and plan: Pt is on Coumadin. Pharmacy is dosing. - Time Spent With Patient less than 15 minutes - Subjective Interval history: Patient was seen and assessed at 8:30 AM. She is resting quietly in the bed. She reports midsternal chest pain with radiation through to her back that began yesterday while she was at rest. She says this lasted for 2 days and she describes it as a "railroad spike through me and they home me on the wall." Immediately upon entering the room patient requested pain medication and Phenergan for nausea. She does report nausea and vomiting, no diaphoresis. Patient is tender in epigastric area. She has had several, vague complaints today of headache, dizziness, abdominal pain, back pain, etc. She has been medicated for each complaint. - Constitutional Vitals: Temp Pulse Resp BP Pulse Ox 97.7 F 98 16 121/65 96 12/26/16 15:29 12/26/16 15:29 12/26/16 15:29 12/26/16 15:29 12/26/16 15:29 General appearance: Present: cooperative, A&O X 3, pleasant, answers questions appropriately - Head Head exam: Present: atraumatic, normal inspection, normocephalic - Eye Eye exam: Present: normal appearance, conjuntiva pink, sclera anicteric - Neck Neck exam general surgery: Present: normal inspection, supple, trachea midline. Absent: lymphadenopathy, tenderness - Respiratory Respiratory exam: Present: CTAB. Absent: accessory muscle use, rales, rhonchi, wheezes - Cardiovascular Cardiovascular exam: Present: RRR, +S1, +S2. Absent: diastolic murmur, gallop, rubs, systolic murmur - GI/Abdominal GI/Abdominal exam: Present: normal bowel sounds, soft, tenderness. Absent: distended, hernia, hepatomegaly - Extremities Exam Extremities exam: Present: warm, radial pulses palpable and symmetrical. Absent : calf tenderness, cyanotic, pedal edema - Neurological Exam Neurological exam: Present: alert, oriented X3, no focal deficits. Absent: facial droop, speech deficit - Skin Skin exam: Present: dry, intact, normal color, warm. Absent: rash Internal Medicine: Result - Labs CBC & Chem 7: 12/26/16 05:14 12/26/16 05:14 Labs: Short CBC 12/26/16 Range/Units 05:14 WBC 7.5 (4.3-11.1) K/mcL Hgb 9.7 L D (11.5-15.4) g/dL Hct 29.9 L (35.3-44.9) % Plt Count 238 (140-400) K/mcL BMP 12/26/16 05:14 Sodium 135 L Potassium 3.7 Chloride 106 Carbon Dioxide 22 BUN 12 Creatinine 0.77 Glucose 98 Calcium 8.5 L Cardiac Enzymes 12/25/16 12/26/16 Range/Units 22:40 05:14 Troponin I 0.00 0.00 (0-0.03) ng/mL Liver Function 12/26/16 Range/Units 05:14 Total Bilirubin 0.3 (0.2-1.2) mg/dL AST 24 (5-34) Units/L ALT 44 (0-55) Units/L Alkaline Phosphatase 213 H (38-126) Units/L Albumin 3.2 L (3.5-5.0) g/dL - Impressions Impressions Brain MRI 12/25/16 19:32 IMPRESSION: Mild chronic small vessel ischemic disease. 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 No acute intracranial abnormality. D/ / 12/25/2016 21:40:42 Carrie Ricketts MD / Dolores Alex Interpreting Provider: Carrie Ricketts MD Consult Discharge Plan - Plan Referrals: Iman Monae CNP [Primary Care Provider] -
[2016-12-26] MEDS: Sucralfate 1 GM TABLET PO SCH ×2 (18:52→20:57)
--- NOTE | 2016-12-26 19:26 | Carotid Imaging Report ---
Carotid Duplex Patient Name:Angela Montoya Order Number:[id number] Procedure Date:12/25/2016 Date:1960ge:56 yrs Gender:Female Lt BP:124 / 64 mmHg Rt.BP:127 / 64 mmHgHeart Rate: Location:[facility] Room #: 3B36 Drafting Clerk:Allegra Howard RDCS Referring MD:Kaylan Cox CNP inspector dials:Iman Monae CNP Reading MD:Saleem Luna MD Primary Indications:near syncope Impressions: The right carotid artery is normal throughout. The left internal carotid artery has a 60-79% stenosis. Recommendations: Risk factor reduction. Further evaluation recommended if clinically indicated. Follow-up carotid duplex in 1 year. Findings Carotid Duplex: Left: There is 60-79% stenosis in the left distal internal carotid artery. There is smooth homogeneous plaque. Prior Study: No prior study available for comparison. Carotid Results Right PSV EDV Assessment Proximal CCA 124 40 Normal Mid CCA 77 25 Normal Distal CCA 97 34 Normal Bifurcation 72 29 Normal Proximal ICA 68 20 Normal Mid ICA 99 43 Normal Distal ICA 80 36 Normal ECA 91 22 Normal Vertebral Artery 82 32 Antegrade Flow Left PSV EDV Assessment Proximal CCA 96 32 Normal Mid CCA 74 25 Normal Distal CCA 66 27 Normal Bifurcation 52 19 Normal Proximal ICA 75 27 Normal Mid ICA 108 38 Normal Distal ICA 152 65 60-79% stenosis ECA 94 13 Normal Vertebral Artery 45 14 Antegrade Flow Ratio's Right ICA/CCA Ratio: 1.29 ICA/CCA Values: 99/77 Left ICA/CCA Ratio: 2.05 ICA/CCA Values: 152/74 Updated by Saleem Luna MD on 12/26/2016 7:16:47 PM electronically signed on 12/26/2016 7:19:17 PM with status of Final
[2016-12-26] MEDS ORDERED: Ibuprofen 600 MG TABLET PO ONE (20:09)
[2016-12-26] MEDS: OLANZapine 5 MG TAB.RAPDIS PO SCH (20:56)
[2016-12-26] MEDS: Gabapentin 300 MG CAPSULE PO SCH (20:58)
[2016-12-26] MEDS ORDERED: Dexamethasone 4 MG/ML VIAL IVP PRN (23:59)
[2016-12-27] MEDS: 0.9 % Sodium Chloride 1,000 ML IVC SCH (00:24)
[2016-12-27 04:45] LABS: Basophils % 0.4 %; Eosinophils # 0.1 K/mcL (0.0-0.6); Hemoglobin 10.3 g/dL (11.5-15.4); Immature Granulocytes % 1.3 % (0-4); Lymphocytes # 0.7 K/mcL (0.6-4.6); Lymphocytes % 7.5 %; Mean Corpuscular HGB Conc 33.2 g/dL (31.6-35.5); Mean Corpuscular Hemoglobin 29.9 pg (28.0-33.3); Mean Corpuscular Volume 90.1 fL (83.0-100.0); Mean Platelet Volume 9.9 fL (9.4-12.4); Monocytes # 0.2 K/mcL (0.0-1.3); Monocytes % 1.8 %; Platelet Count 227 K/mcL (140-400); Red Blood Count 3.44 M/mcL (3.82-4.97); Red Cell Distribution Width 13.5 % (11.5-14.5)
[2016-12-27 05:11] LABS: BUN/Creatinine Ratio 13 (6-26); Blood Urea Nitrogen 9 mg/dL (7-20); Calcium 8.3 mg/dL (8.6-10.8); Carbon Dioxide 20 mEq/L (19-29); Chloride 103 mEq/L (98-109); Glucose 112 mg/dL (70-99); Osmolality,Calculated 271 (280-300); Potassium 4.4 mEq/L (3.5-4.5); Sodium 131 mEq/L (136-145); eGFR For African Americans > 60 (> 60); eGFR For Non-African Americans > 60 (> 60)
[2016-12-27] MEDS: OXcarbazepine 150 MG TABLET PO SCH (09:40)
[2016-12-27] MEDS: Sucralfate 1 GM TABLET PO SCH ×2 (09:42→12:36)
[2016-12-27] MEDS: Ondansetron 4 MG/2 ML VIAL IVP PRN (10:38)
[2016-12-27] MEDS: chlorproMAZINE 25 MG TABLET PO SCH (11:21)
[2016-12-27 15:15] VITALS: BP 123/74
[2016-12-27] MEDS ORDERED: Ondansetron ODT 4 MG TAB.RAPDIS SL ONE (16:06)
--- NOTE | 2016-12-27 16:06 | Discharge Summary ---
Date of Encounter: 12/27/16 Time of Encounter: 08:40 - Discharge Diagnosis (1) Near syncope Priority: Primary Status: Acute Comments: Patient's head CT is negative. Carotid Dopplers show right is normal throughout and left was 60-79% stenosis. Echocardiogram showed LVEF is 60% normal systolic function, mild diastolic dysfunction and no significant valvular dysfunction. Brain MR showed mild chronic small vessel ischemic disease with previous injury and right parietal lobe. No acute intracranial abnormality. Patient denies dizziness, headache, vision changes, and does not describe any syncopal or near syncopal events since arrival. (2) Chest pain Priority: Secondary Status: Acute Comments: Patient denies chest pain. Results as above. Qualifiers: Chest pain type: unspecified Qualified Code(s): R07.9 - Chest pain, unspecified (3) Tobacco use disorder Priority: Secondary Status: Chronic Comments: The patient states that she wants to quit smoking. She said that she is going to quit cold turkey since she already has not been smoking in here today. Smoking cessation education completed. (4) Bipolar disorder Priority: Secondary Status: Chronic Comments: Chronic. Continue home medications. Qualifiers: Active/Remission status: remission status unspecified Qualified Code(s): F31.9 - Bipolar disorder, unspecified (5) Essential hypertension Priority: Secondary Status: Chronic Comments: Chronic. Continue home medications. Well-controlled in inpatient setting. (6) DVT prophylaxis Priority: Secondary Status: Acute (7) Abdominal pain Priority: Secondary Status: Acute Comments: Throughout visit patient has complained of epigastric pain, nausea, vomiting. She is required much medication for nausea and vomiting although no one has seen her vomit. AST and ALT are within normal limits. Alk phosphatase was mildly elevated with unclear etiology. Urine culture was not indicated and urinalysis was negative. Patient had a CT of abdomen and pelvis today it was negative. Patient had a liver ultrasound done in May 2016. It showed a hemangioma but does not require any follow-up, CT abdomen and pelvis from May, is basically unchanged from today. Patient is tender in epigastric area and reports that she has had ulcers in the past. Her hemoglobin has remained steady since not concerned about GI bleed. She denies any magui bleeding. Will increase omeprazole to 20 mg by mouth twice a day as well as give her Carafate 4 times a day. I will also refer her to GI for continued evaluation of abdominal pain. Qualifiers: Abdominal location: epigastric Qualified Code(s): R10.13 - Epigastric pain - Discharge Medications Prescriptions: Ondansetron ODT [Zofran ODT] 4 mg SL Q4HR PRN #12 tab.rapdis PRN Reason: Nausea Omeprazole [PriLOSEC] 20 mg PO BIDAC #60 cap Sucralfate [Carafate] 1 gm PO QIDAC #120 tab Home Medications: Chlorpromazine HCl 100 mg PO QAM 12/25/16 [History] Chlorpromazine HCl 300 mg PO HS 12/25/16 [History] Furosemide [Lasix] 20 mg PO DAILY PRN 12/25/16 [History] Gabapentin [Neurontin] 600 mg PO HS 12/25/16 [History] Lisinopril [Zestril] 10 mg PO DAILY 12/25/16 [History] Loratadine [Claritin] 10 mg PO DAILY 12/25/16 [History] OLANZapine [Zyprexa] 5 mg PO HS 12/25/16 [History] OXcarbazepine [Oxcarbazepine] 600 mg PO BID 12/25/16 [History] Paroxetine [Paxil] 60 mg PO DAILY 12/25/16 [History] Calcium Carbonate [Tums] 1,000 mg PO Q4HR PRN 12/27/16 [Rx] Omeprazole [PriLOSEC] 20 mg PO BIDAC #60 cap 12/27/16 [Rx] Ondansetron ODT [Zofran ODT] 4 mg SL Q4HR PRN #12 tab.rapdis 12/27/16 [Rx] Sucralfate [Carafate] 1 gm PO QIDAC #120 tab 12/27/16 [Rx] Allergies/Adverse Reactions: 3 Allergy/AdvReac Type Severity Reaction Status Date / Time metoclopramide [From Reglan] Allergy Mild Itching Verified 12/07/16 16:47 tramadol Allergy Mild Itching Verified 12/07/16 16:47 amitriptyline Allergy Itching Verified 12/07/16 16:47 codeine Allergy Hives Verified 12/07/16 16:47 Sulfa (Sulfonamide Allergy See Verified 12/07/16 16:47 Antibiotics) Comments sulfamethoxazole Allergy See Verified 12/07/16 16:47 [From Bactrim] Comments trimethoprim [From Bactrim] Allergy See Verified 12/07/16 16:47 Comments lorazepam [From Ativan] AdvReac Mild Anxiety Verified 12/07/16 16:47 benztropine [From Cogentin] AdvReac See Verified 12/07/16 16:47 Comments ciprofloxacin [From Cipro] AdvReac See Verified 12/07/16 16:47 Comments onabotulinumtoxinA AdvReac See Verified 12/07/16 16:47 [From Botox] Comments sumatriptan [From Imitrex] AdvReac Agitated Verified 12/07/16 16:47 topiramate [From Topamax] AdvReac See Verified 12/07/16 16:47 Comments Procedures/tests Complete & Pending: Procedures Performed prior 72 hours Category Date Time Status CT abd pelvis wo no iv no oral [CT] Routine Cat Scan 12/27/16 10:00 Completed MR head/brain wo con [MR] Routine MRI 12/25/16 19:32 Completed Date of admission: 12/25/16 18:37 Primary care physician: Iman Monae CNP Discharging clinician: Dimple Humphrey Anticipated date of discharge: 12/27/16 - Patient Status Disposition: Home, Self-Care Condition: Good Functional capacity at discharge: independent ambulation Overall status at discharge: patient is back to baseline - Discharge Instructions Follow Up With: Iman Monae CNP [Primary Care Provider] - Additional Instructions: Take your medications as directed, I have called prescriptions in to your pharmacy. Follow up with your PCP in the next 7-10 days for a follow up visit. Follow up with GI as scheduled. They will call you for an appointment. Resume your normal medications and your activities as tolerated. Return to the ER as needed for any other problems or concerns. - Diet and Activity Activity: increase activity as tolerated Diet: advance to your usual diet Hospital course: Ms. Montoya is a 56 year old female with past medical history of mastoiditis, chronic fatigue and malaise, overdose, polypharmacy, COPD, CHF, acute respiratory failure, pneumonia, anemia, depression, ARDS, migraines, hypoxemia. She presented to the emergency department with complaint of hypotension. She reports several day history of feeling tired and weak numbness and tingling in her fingers. She tells the ER physician that she normally gets a liter of fluids IV feels better and goes home. Patient was admitted with near-syncope, chest pain. She reported 2-3 days prior to admission that she felt like she was going to pass out with standing, headache, bilateral hands and feet paresthesias, 2-3 week history of chest pain. During admission patient denies all of this and reports abdominal pain, nausea and vomiting. Patient has had multiple complaints including headache, bilious vomiting that was not witnessed , dizziness, states that her legs were jumping, abdominal pain. She has been treated with analgesics, anti-emetics, meclizine. She has been treated with IV fluids. Chest x-ray and head CT are negative. Brain MRI was negative. Patient had carotid Dopplers that showed 40-59% stenosis on the left, none on the right. Echocardiogram showed LVEF of 60% with normal systolic function, mild diastolic dysfunction of left ventricle, no significant valvular dysfunction. Troponins are negative. She has been seen by cardiology and they signed off the pain was not cardiac. I agree, pain is most likely GI in nature. She does report prior history of ulcers in the past. She has not seen GI for several years. Today's abdomen and pelvis CT was negative. Patient had a liver ultrasound in May, and was positive for hemangioma but did not require follow-up. CT from May, is essentially unchanged from todays. Patient reports a subjective history of pancreatitis, ALT AST within normal limits. Abdomen is tender to palpation in epigastric area. Her hemoglobin is steady I am not concerned with GI bleeding. Her other labs and vital signs have been within normal limits. Omeprazole has been increased to 20 mg twice daily and she has been given a prescription for Zofran ODT for home, as well as Carafate 1000 mg 4 times daily. I will refer her to GI. Patient is ready for discharge. Time spent discussing smoking cessation with patient: 3 to 10 minutes - Time Spent with Patient Total time spent providing and/or coordinating discharge services: Less than 30 minutes - Constitutional Vitals: Temp Pulse Resp BP Pulse Ox 97.8 F 94 17 123/74 97 12/27/16 15:14 12/27/16 15:14 12/27/16 15:14 12/27/16 15:14 12/27/16 15:14 General appearance: Present: cooperative, A&O X 3, pleasant, no acute distress, answers questions appropriately - Head Head exam: Present: atraumatic, normal inspection, normocephalic - Eye Eye exam: Present: normal appearance, conjuntiva pink, sclera anicteric - ENT ENT exam: Present: mucous membranes moist, normal external ear exam, normal oropharynx - Neck Neck exam general surgery: Present: normal inspection, supple, trachea midline. Absent: lymphadenopathy, tenderness - Respiratory Respiratory exam: Present: CTAB. Absent: accessory muscle use, rales, rhonchi, wheezes - Cardiovascular Cardiovascular exam: Present: RRR, +S1, +S2. Absent: diastolic murmur, gallop, rubs, systolic murmur - GI/Abdominal GI/Abdominal exam: Present: normal bowel sounds, soft. Absent: distended, hepatomegaly, tenderness - Extremities Exam Extremities exam: Present: normal inspection, warm, radial pulses palpable and symmetrical. Absent: calf tenderness, cyanotic, pedal edema - Neurological Exam Neurological exam: Present: alert, oriented X3, no focal deficits. Absent: facial droop, speech deficit - Skin Skin exam: Present: dry, intact, normal color, warm. Absent: rash
== END 2016-12-27 17:55 | disposition home or self-care (01) ==
LOC: EMEROO 14:52 → 3BNU 14:52
PROVIDERS: ADMIT Nurse Practitioner Family; ATTEND Registered Nurse

== ENCOUNTER 2017-04-12 08:01 | Inpatient (IN) ==
[2017-04-12] MEDS ORDERED: 0.9 % Sodium Chloride 1,000 ML IVC ONE ×2 (08:19→08:25)
--- NOTE | 2017-04-12 08:27 | Emergency Department Note ---
Disposition Clinical Impression: Dyspnea and respiratory abnormalities, Respiratory distress, Elevated troponin , Acute pulmonary edema Sepsis Qualifiers: Sepsis type: sepsis due to unspecified organism Qualified Code(s): A41.9 - Sepsis, unspecified organism Pneumonia Qualifiers: Pneumonia type: aspiration pneumonia Aspiration pneumonia type: unspecified Laterality: bilateral Lung location: lower lobe of lung Qualified Code(s): J69.0 - Pneumonitis due to inhalation of food and vomit Leukocytosis, unspecified Qualifiers: Leukocytosis type: unspecified Qualified Code(s): D72.829 - Elevated white blood cell count, unspecified Disposition: Admitted As Inpatient Condition: Critical Time of Disposition: 10:55 SOB HPI - General Chief Complaint: ED Shortness of Breath/Dyspnea Stated Complaint: MADELYN Time Seen by Provider: 04/12/17 08:08 Source: patient, EMS Mode of arrival: ambulatory Limitations: no limitations Nursing Notes Reviewed: Yes Vital Signs Reviewed: Yes - History of Present Illness Ill appearing 56-year-old female presents for evaluation of a cough, shortness of breath, pain with inspiration, and subjective fevers. Symptoms began one week ago and have gradually worsened. She has been evaluated by her primary care provider 3 different times during this interval. She has completed a Z- Mehul without improvement. 2 days ago, she was began on oral Levaquin, and states that she has still yet to see an improvement. She arrives borderline hypotensive, tachycardic, and tachypneic. She complains of mild degree of right -sided pain with inspiration however denies any sputum production or hemoptysis. She denies any abdominal pain, nausea, or vomiting. Pt Subjective Complaint: shortness of breath, cough, pain with inspiration Onset (ago): week(s) (1) Severity: severe Consistency/Duration: gradually worsening Improves with: nothing Worsens with: nothing Associated symptoms: Reports: fever. Denies: sputum production, hemoptysis, nausea/vomiting, abdominal pain Treatment prior to arrival: other Cough present: Yes Sputum production: No - Related Data Home Medications Medication Instructions Recorded Confirmed Chlorpromazine HCl 100 mg PO QAM 12/25/16 04/12/17 Chlorpromazine HCl 300 mg PO HS 12/25/16 04/12/17 OLANZapine [Zyprexa] 5 mg PO HS 12/25/16 04/12/17 Paroxetine [Paxil] 60 mg PO DAILY 12/25/16 04/12/17 Albuterol Sulfate [Ventolin Hfa] 2 puff IH Q6H PRN 04/12/17 04/12/17 Baclofen [Lioresal] 20 mg PO QPM 04/12/17 04/12/17 Cyprohepatdine [Periactin] 4 mg PO BID 04/12/17 04/12/17 Metoprolol XL (24 HR) Succ [Toprol 25 mg PO DAILY 04/12/17 04/12/17 XL] Promethazine [Phenergan] 12.5 mg PO DAILY PRN 04/12/17 04/12/17 levoFLOXacin [Levaquin] 500 mg PO DAILY 04/12/17 04/12/17 rOPINIRole [Requip] 0.25 mg PO HS 04/12/17 04/12/17 Previous Rx's Medication Instructions Recorded Calcium Carbonate [Tums] 1,000 mg PO Q4HR PRN 12/27/16 Omeprazole [PriLOSEC] 20 mg PO BIDAC #60 cap 12/27/16 Allergies Allergy/AdvReac Type Severity Reaction Status Date / Time metoclopramide [From Reglan] Allergy Mild Itching Verified 03/22/17 09:27 tramadol Allergy Mild Itching Verified 03/22/17 09:27 amitriptyline Allergy Itching Verified 03/22/17 09:27 codeine Allergy Hives Verified 03/22/17 09:27 Sulfa (Sulfonamide Allergy See Verified 03/22/17 09:27 Antibiotics) Comments sulfamethoxazole Allergy See Verified 03/22/17 09:27 [From Bactrim] Comments trimethoprim [From Bactrim] Allergy See Verified 03/22/17 09:27 Comments lorazepam [From Ativan] AdvReac Mild Anxiety Verified 03/22/17 09:27 benztropine [From Cogentin] AdvReac See Verified 03/22/17 09:27 Comments ciprofloxacin [From Cipro] AdvReac See Verified 03/22/17 09:27 Comments onabotulinumtoxinA AdvReac See Verified 03/22/17 09:27 [From Botox] Comments sertraline [From Zoloft] AdvReac Headache Verified 03/22/17 09:27 sumatriptan [From Imitrex] AdvReac Agitated Verified 03/22/17 09:27 topiramate [From Topamax] AdvReac See Verified 03/22/17 09:27 Comments All systems ED: reviewed and negative except as stated. Constitutional: Reports: as per HPI, fever. Denies: chills, weakness, weight change Eyes: Denies: eye pain, eye discharge, vision change ENT ED: Denies: ear pain, throat pain, dental pain, hearing loss, epistaxis, congestion, dysphagia Cardiovascular: Denies: chest pain, palpitations, dyspnea on exertion, edema, syncope Respiratory: Reports: as per HPI, cough, dyspnea. Denies: wheezes, hemoptysis, stridor Gastrointestinal: Denies: abdominal pain, nausea, vomiting, diarrhea, constipation, hematemesis, melena, hematochezia Genitourinary: Denies: dysuria, frequency, hematuria, discharge Musculoskeletal: Denies: back pain, neck pain, arthralgia, myalgia Integumentary: Denies: rash, abrasion, lesions Neurological: Denies: headache, weakness, numbness, paresthesias, confusion, abnormal gait, vertigo Psychiatric: Denies: anxiety, depression, suicidal thoughts, homicidal thoughts , auditory hallucinations, visual hallucinations Endocrine: Denies: fatigue Hematological/Lymphatic: Denies: easy bleeding, easy bruising Allergic/Immunologic: Denies: facial swelling, urticaria Past Medical History - Past Medical History Attestation: Yes The following information was validated with the patient. Source: patient, nursing notes reviewed Medical history: Reports: migraine Surgical history: Reports: , cholecystectomy, herniorrhaphy, hysterectomy Psychiatric history: Reports: anxiety, bipolar, depression COMMUNITY CULTURAL DEVELOPMENT OFFICER history: Reports: no COMMUNITY CULTURAL DEVELOPMENT OFFICER history, other - Social History Smoking Status: Former smoker Smokeless Tobacco Status: No Alcohol use: Reports: none Drug use: Reports: none Physical Exam - General General appearance: alert, in no apparent distress - Head Head exam: atraumatic, normocephalic, normal inspection - Eye Eye exam: Present: normal appearance, PERRL, EOMI. Absent: nystagmus - ENT ENT exam: mucous membranes moist - Neck Neck exam: Present: normal inspection, full ROM, trachea midline - Chest Chest inspection: Present: normal inspection, symmetric chest wall rise - Respiratory Respiratory exam: Present: normal lung sounds bilaterally. Absent: respiratory distress, wheezes, stridor, accessory muscle use, prolonged expiratory phase - Cardiovascular Cardiovascular exam: Present: regular rate, normal rhythm, normal heart sounds - Abdominal Exam Abdominal exam: Present: soft, Non-Tender, normal bowel sounds - Extremities Exam Extremities exam: Present: normal inspection, full ROM. Absent: tenderness, pedal edema - Neurological Exam Neurological exam: Present: alert, oriented X3 - Psychiatric Psychiatric exam: Present: normal affect, normal mood - Skin Skin exam: Present: warm, dry, intact, normal color Course Course Narrative: 10:00: I was notified by the patient's nurse that the patient had attempted to get out of bed and desaturated into the upper 60s. She was placed back in bed with a nonrebreather. She did improve to 93% on nonrebreather mask. Respiratory therapy has been notified. We will trial BiPAP and reassess. 1010: I discussed this patient's case with Dr. Melo, hr internship fire protection designer. He feels that this patient's elevated troponin is secondary to her current infectious process/pneumonia. He states he does not feel it is cardiac related nor ACS. He states that he will be happy to consult with the patient should the admitting physician request a formal consultation. 1015: I spoke with Dr. Monae, fast food shift supervisor fire protection designer. He states that the does not feel the patient is an ICU candidate, as she only scores a score of 1 on the curb 65 scale. 1025: I spoke with Dr. Verde, hospitalist fire protection designer. He recommends the acquisition of a contrast enhanced CT of the chest for further evaluation. 1040: Dr. Rutledge has evaluated the patient in the emergency Department. He recommends reconsultation with the fast food shift supervisor, stating that he feels patient will be better served in the setting of the intensive care unit. Dr. Monae has been notified. Repeat chest x-ray has been obtained. Chest x-ray shows worsening pulmonary congestion. The patient's fluids will be stopped at this time due to chest x-ray results as well as signs of worsening hypoxia. The patient has received a total of approximately 1700 mL of IV fluid. 1045: Dr. Monae has evaluated the patient in the emergency department. He states that the patient can be transferred to the ICU. He recommends against the obtaining of a contrast enhanced CT at this time. He recommends an additional 1 mg of Ativan be given by IV push. A Kingsley catheter will be placed prior to transfer to the ICU. Vital Signs Temperature 98.0 F 04/12/17 08:07 Pulse Rate 123 04/12/17 08:07 Respiratory Rate 25 04/12/17 08:07 Blood Pressure 83/48 04/12/17 08:07 O2 Sat by Pulse Oximetry 84 04/12/17 08:07 Temperature 98.6 F 04/12/17 12:00 Pulse Rate 89 04/12/17 13:00 Respiratory Rate 56 04/12/17 13:00 Blood Pressure 102/75 04/12/17 13:00 O2 Sat by Pulse Oximetry 92 04/12/17 13:00 Oxygen Delivery Oxygen Delivery Bipap Shortness of Breath/Dyspnea - Medical Records Medical records reviewed: Yes I reviewed the patient's medical records. - Lab Data Lab results reviewed: Yes I reviewed the patient's lab results. Lab results narrative: Chest X-Ray 04/12/17 10:05 IMPRESSION: Worsening acute pulmonary edema. No pleural effusion. D/ / Ry Leonard MD / Ry Leonard MD Interpreting Provider: Ry Leonard MD Result diagrams: 04/12/17 09:22 04/12/17 08:26 Lab Results 04/12/17 04/12/17 04/12/17 Range/Units 08:26 08:26 08:42 WBC (4.3-11.1) K/mcL RBC (3.82-4.97) M/mcL Hgb (11.5-15.4) g/dL Hct (35.3-44.9) % MCV (83.0-100.0) fL MCH (28.0-33.3) pg MCHC (31.6-35.5) g/dL RDW (11.5-14.5) % Plt Count (140-400) K/mcL MPV (9.4-12.4) fL Immature Gran % (0-4) % Seg Neutrophils % % Lymphocytes % % Monocytes % % Eosinophils % % Basophils % % Neutrophils # (1.6-8.9) K/mcL Lymphocytes # (0.6-4.6) K/mcL Monocytes # (0.0-1.3) K/mcL Eosinophils # (0.0-0.6) K/mcL Basophils # (0.0-0.2) K/mcL ABG pH (7.32-7.45) pH Units ABG pCO2 (35-45) mmHg ABG pO2 (85-104) mmHg ABG HCO3 (21-27) mEq/L ABG Total CO2 (20-26) mEq/L ABG O2 Saturation (95-98) % ABG Base Excess (-2 to 3) mEq/L O2 Delivery Device Inspired O2 (1-15=lpm [id number]=%) Sodium 137 (136-145) mEq/L Potassium 3.8 (3.5-4.5) mEq/L Chloride 104 (98-109) mEq/L Carbon Dioxide 20 (19-29) mEq/L BUN 14 (7-20) mg/dL Creatinine 1.08 (0.57-1.11) mg/dL Est GFR ( Amer) > 60 (> 60) Est GFR (Non-Af Amer) 52 L (> 60) BUN/Creatinine Ratio 13 (6-26) Glucose 182 H (70-99) mg/dL Calculated Osmolality 289 (280-300) Lactic Acid 3.3 H (0.5-2.2) mmol/L Calcium 9.4 (8.6-10.8) mg/dL Troponin I 0.07 H* (0-0.03) ng/mL B-Natriuretic Peptide (0-100) pg/mL 04/12/17 04/12/17 04/12/17 Range/Units 08:42 09:22 10:21 WBC 19.7 H (4.3-11.1) K/mcL RBC 3.50 L (3.82-4.97) M/mcL Hgb 10.4 L (11.5-15.4) g/dL Hct 30.8 L (35.3-44.9) % MCV 88.0 (83.0-100.0) fL MCH 29.7 (28.0-33.3) pg MCHC 33.8 (31.6-35.5) g/dL RDW 14.9 H (11.5-14.5) % Plt Count 226 (140-400) K/mcL MPV 9.9 (9.4-12.4) fL Immature Gran % 1.0 (0-4) % Seg Neutrophils % 93.0 % Lymphocytes % 3.2 % Monocytes % 2.6 % Eosinophils % 0.0 % Basophils % 0.2 % Neutrophils # 18.3 H (1.6-8.9) K/mcL Lymphocytes # 0.6 (0.6-4.6) K/mcL Monocytes # 0.5 (0.0-1.3) K/mcL Eosinophils # 0.0 (0.0-0.6) K/mcL Basophils # 0.0 (0.0-0.2) K/mcL ABG pH (7.32-7.45) pH Units ABG pCO2 (35-45) mmHg ABG pO2 (85-104) mmHg ABG HCO3 (21-27) mEq/L ABG Total CO2 (20-26) mEq/L ABG O2 Saturation (95-98) % ABG Base Excess (-2 to 3) mEq/L O2 Delivery Device Inspired O2 (1-15=lpm [id number]=%) Sodium (136-145) mEq/L Potassium (3.5-4.5) mEq/L Chloride (98-109) mEq/L Carbon Dioxide (19-29) mEq/L BUN (7-20) mg/dL Creatinine (0.57-1.11) mg/dL Est GFR ( Amer) (> 60) Est GFR (Non-Af Amer) (> 60) BUN/Creatinine Ratio (6-26) Glucose (70-99) mg/dL Calculated Osmolality (280-300) Lactic Acid 3.5 H (0.5-2.2) mmol/L Calcium (8.6-10.8) mg/dL Troponin I (0-0.03) ng/mL B-Natriuretic Peptide 134 H (0-100) pg/mL 04/12/17 Range/Units 10:58 WBC (4.3-11.1) K/mcL RBC (3.82-4.97) M/mcL Hgb (11.5-15.4) g/dL Hct (35.3-44.9) % MCV (83.0-100.0) fL MCH (28.0-33.3) pg MCHC (31.6-35.5) g/dL RDW (11.5-14.5) % Plt Count (140-400) K/mcL MPV (9.4-12.4) fL Immature Gran % (0-4) % Seg Neutrophils % % Lymphocytes % % Monocytes % % Eosinophils % % Basophils % % Neutrophils # (1.6-8.9) K/mcL Lymphocytes # (0.6-4.6) K/mcL Monocytes # (0.0-1.3) K/mcL Eosinophils # (0.0-0.6) K/mcL Basophils # (0.0-0.2) K/mcL ABG pH 7.31 L (7.32-7.45) pH Units ABG pCO2 36 (35-45) mmHg ABG pO2 79 L (85-104) mmHg ABG HCO3 18 L (21-27) mEq/L ABG Total CO2 19 L (20-26) mEq/L ABG O2 Saturation 95 (95-98) % ABG Base Excess -8 L (-2 to 3) mEq/L O2 Delivery Device BiPAP Inspired O2 100.0 (1-15=lpm [id number]=%) Sodium (136-145) mEq/L Potassium (3.5-4.5) mEq/L Chloride (98-109) mEq/L Carbon Dioxide (19-29) mEq/L BUN (7-20) mg/dL Creatinine (0.57-1.11) mg/dL Est GFR ( Amer) (> 60) Est GFR (Non-Af Amer) (> 60) BUN/Creatinine Ratio (6-26) Glucose (70-99) mg/dL Calculated Osmolality (280-300) Lactic Acid (0.5-2.2) mmol/L Calcium (8.6-10.8) mg/dL Troponin I (0-0.03) ng/mL B-Natriuretic Peptide (0-100) pg/mL - Radiology Data Radiology results reviewed: Yes I reviewed the patient's radiology results. Chest X-Ray 04/12/17 10:05 IMPRESSION: Worsening acute pulmonary edema. No pleural effusion. D/ / Ry Leonard MD / Ry Leonard MD Interpreting Provider: Ry Leonard MD - EKG Data EKG attestation: Yes I reviewed and interpreted this EKG. Critical Care Time Critical Care Time: Yes Total Critical Care Time: 60 Attestation: The high probability of a clinically significant, sudden or life threatening deterioration of the [resp] system(s) required my full and direct attention, intervention and personal management. The aggregate critical care time was [60] minutes. This time is in addition to time spent performing reported procedures but includes the following: [x] Data Review and interpretation [x] Patient assessment and monitoring of vital signs [x] Documentation [x] Medication orders and management Attestation Statement - Attestation Attestation: For this encounter, I have reviewed the PRINCIPAL EMBEDDED SOFTWARE ENGINEER or PA documentation, treatment plan, and medical decision making; and I have had face to face time with this patient. He is 56-year-old white female with chronic tobacco abuse who presents to the emergency department with complaints of gradually worsening shortness of breath , productive cough, and subjective fevers. Patient states she has been ill for 2-3 weeks and her symptoms are gradually worsening despite a course of Zithromax as well as the start of Levaquin recently by her doctor. Patient arrives to the emergency department tachycardic, hypotensive, and hypoxic on room air. Patient was placed on supplement oxygen, breathing treatments were initiated, patient met SIRS criteria so sepsis protocol was ordered initiated. There was some delay in patient receiving IV fluids due to patient being a difficult peripheral IV stick. Once IV access was established, blood cultures were drawn and sent and patient received initial fluid bolus of 1 L and which her blood pressure began to improve with just his systolic blood pressures over 100. Patient was given empiric Biotic therapy IV, labs were drawn and sent. I agree with patient's physical exam findings as documented. Patient was observed closely due to abnormal vital signs and respiratory status. EKG showed no acute changes compared to prior EKGs in the system. She had some anterolateral ischemia that had been seen on prior EKG. Serial EKGs were obtained while in the emergency department and these remain unchanged. Patient began having worsening shortness of breath following approximately 1.5 L fluid bolus. Repeat chest x-ray was obtained which showed acute pulmonary edema. Patient was placed on BiPAP for assisted ventilation, patient significantly improved and stabilized on BiPAP. Initial chest x-ray showed what appeared to be bilateral interstitial changes consistent with mild edema versus infection. Lab values show significantly high leukocytosis with a left shift as well as an elevated lactate of 3.3. These are in correlation with her clinical symptoms over the past 2-3 weeks. Patient's troponin came back elevated. Renal function is normal. Patient appears to have had a recent cardiac evaluation December 25 in which she had an echocardiogram performed, serial troponins were negative and her EF equals 60% with overall findings unremarkable. We made an initial call to the fast food shift supervisor and recommended patient be placed in the ICU, unclear but clinically suspect that the patient is septic secondary to pulmonary infection which may be developing ARDS, versus cardiac event resulting in pulmonary edema. They initially refused to the admission and recommended the patient be placed on a regular floor. We consult with the hr internship Dr. Melo who is on-call today, discussed the case with him and he agreed to consult on the patient and did not make any further recommendations at this time. Once the hospitalist came to see the patient he also agreed the patient should go to the ICU, the fast food shift supervisor was again called down here and examined the patient in the emergency department. Patient's status at this time is guarded and will require close observation. Patient's vital signs are improved on BiPAP at this time. Patient when is was admitted to the fast food shift supervisor to the ICU for further evaluation and management.
[2017-04-12] MEDS ORDERED: Vancomycin 1,250 MG in D5% in Water 250 ML IVPB SCH ×2 (09:00→17:00)
[2017-04-12 09:09] LABS: BUN/Creatinine Ratio 13 (6-26); Blood Urea Nitrogen 14 mg/dL (7-20); Calcium 9.4 mg/dL (8.6-10.8); Carbon Dioxide 20 mEq/L (19-29); Chloride 104 mEq/L (98-109); Glucose 182 mg/dL (70-99); Osmolality,Calculated 289 (280-300); Potassium 3.8 mEq/L (3.5-4.5); Sodium 137 mEq/L (136-145); eGFR For African Americans > 60 (> 60); eGFR For Non-African Americans 52 (> 60)
[2017-04-12] MEDS ORDERED: Azithromycin 500 MG in D5% in Water 250 ML IVPB ONE (09:22)
[2017-04-12] MEDS ORDERED: 0.9 % Sodium Chloride 500 ML IVC ONE (09:22)
[2017-04-12 09:28] LABS: Basophils % 0.2 %; Hematocrit 30.8 % (35.3-44.9); Hemoglobin 10.4 g/dL (11.5-15.4); Lymphocytes # 0.6 K/mcL (0.6-4.6); Lymphocytes % 3.2 %; Mean Corpuscular HGB Conc 33.8 g/dL (31.6-35.5); Mean Corpuscular Hemoglobin 29.7 pg (28.0-33.3); Mean Platelet Volume 9.9 fL (9.4-12.4); Monocytes # 0.5 K/mcL (0.0-1.3); Monocytes % 2.6 %; Neutrophils # 18.3 K/mcL (1.6-8.9); Platelet Count 226 K/mcL (140-400); Red Cell Distribution Width 14.9 % (11.5-14.5)
[2017-04-12] MEDS ORDERED: cefTRIAXone 1,000 MG in Water for inj. (sterile) 10 ML IVPB ONE (09:30)
[2017-04-12] MEDS ORDERED: Aspirin 81 MG TAB.CHEW PO ONE (09:54)
[2017-04-12] MEDS ORDERED: *HR* LORazepam 2 MG/ML VIAL ONE (09:56)
[2017-04-12] MEDS ORDERED: Vancomycin 1,000 MG in D5% in Water 250 ML IVPB ONE (10:04)
[2017-04-12] MEDS ORDERED: *HR* LORazepam 2 MG/ML VIAL IVP ONE (10:50)
[2017-04-12 11:13] LABS: ABG Base Excess -8 mEq/L (-2 to 3); ABG HCO3 18 mEq/L (21-27); ABG Oxygen Saturation 95 % (95-98); ABG PCO2 36 mmHg (35-45); ABG PH 7.31 pH Units (7.32-7.45); ABG PO2 79 mmHg (85-104); ABG TCO2 19 mEq/L (20-26)
[2017-04-12 11:25] LABS: Bilirubin,Urine Small (Negative); Blood,Urine Negative (Negative); Clarity,Urine Clear (Clear); Color,Urine Yellow (Yellow); Glucose,Urine (UA) Normal (Normal); Ketones,Urine Negative (Negative); Leukocyte Esterase,Urine Negative (Negative); Nitrite,Urine Negative (Negative); Protein,Urine 30 mg/dL (Neg-Trace); Specific Gravity,Urine 1.027 (1.010-1.025); Urobilinogen,Urine Normal (Normal)
[2017-04-12 11:27] LABS: Bacteria,Urine None Seen per hpf (None-Few); RBC,Urine 0-3 per hpf (0-3); Squamous Epithelial Cell,Urine Many per lpf (None-Few); WBC,Urine 0-3 per hpf (0-3)
[2017-04-12 11:38] LABS: Hyaline Casts,Urine Many per lpf (None-Few)
[2017-04-12] MEDS ORDERED: Dexmedetomidine HCl 400 MCG/100 ML MLS IVC ONE (11:40)
[2017-04-12] MEDS: Dexmedetomidine HCl 400 MCG/100 ML MLS IVC SCH ×3 (11:45→22:52)
--- NOTE | 2017-04-12 11:50 | Pulmonology History & Physical ---
<Russell Carpenter M - Last Filed: 04/12/17 12:14> Date of Encounter: 04/12/17 History of Present Illness HPI: Ms. Montoya is a 56 year old female Medications and Allergies Chlorpromazine HCl 100 mg PO QAM 12/25/16 [History] Chlorpromazine HCl 300 mg PO HS 12/25/16 [History] OLANZapine [Zyprexa] 5 mg PO HS 12/25/16 [History] Paroxetine [Paxil] 60 mg PO DAILY 12/25/16 [History] Calcium Carbonate [Tums] 1,000 mg PO Q4HR PRN 12/27/16 [Rx] Omeprazole [PriLOSEC] 20 mg PO BIDAC #60 cap 12/27/16 [Rx] Albuterol Sulfate [Ventolin Hfa] 2 puff IH Q6H PRN 04/12/17 [History] Baclofen [Lioresal] 20 mg PO QPM 04/12/17 [History] Cyprohepatdine [Periactin] 4 mg PO BID 04/12/17 [History] Metoprolol XL (24 HR) Succ [Toprol XL] 25 mg PO DAILY 04/12/17 [History] Promethazine [Phenergan] 12.5 mg PO DAILY PRN 04/12/17 [History] levoFLOXacin [Levaquin] 500 mg PO DAILY 04/12/17 [History] rOPINIRole [Requip] 0.25 mg PO HS 04/12/17 [History] 3 Allergy/AdvReac Type Severity Reaction Status Date / Time metoclopramide [From Reglan] Allergy Mild Itching Verified 03/22/17 09:27 tramadol Allergy Mild Itching Verified 03/22/17 09:27 amitriptyline Allergy Itching Verified 03/22/17 09:27 codeine Allergy Hives Verified 03/22/17 09:27 Sulfa (Sulfonamide Allergy See Verified 03/22/17 09:27 Antibiotics) Comments sulfamethoxazole Allergy See Verified 03/22/17 09:27 [From Bactrim] Comments trimethoprim [From Bactrim] Allergy See Verified 03/22/17 09:27 Comments lorazepam [From Ativan] AdvReac Mild Anxiety Verified 03/22/17 09:27 benztropine [From Cogentin] AdvReac See Verified 03/22/17 09:27 Comments ciprofloxacin [From Cipro] AdvReac See Verified 03/22/17 09:27 Comments onabotulinumtoxinA AdvReac See Verified 03/22/17 09:27 [From Botox] Comments sertraline [From Zoloft] AdvReac Headache Verified 03/22/17 09:27 sumatriptan [From Imitrex] AdvReac Agitated Verified 03/22/17 09:27 topiramate [From Topamax] AdvReac See Verified 03/22/17 09:27 Comments All Systems: A 10-system review of systems was performed and is negative for pertinent findings except as documented above in the HPI. Physical Examination Vital Signs: Vital Signs, Last 4 Hours Temp Pulse Resp BP Pulse Ox 04/12/17 12:00 98.6 F 96 45 110/65 100 04/12/17 11:10 101 32 92/84 100 Results - Laboratory Findings CBC and BMP: 04/12/17 09:22 04/12/17 08:26 ABG ABG pH 7.31 pH Units (7.32-7.45) L 04/12/17 10:58 ABG pCO2 36 mmHg (35-45) 04/12/17 10:58 ABG pO2 79 mmHg (85-104) L 04/12/17 10:58 ABG O2 Saturation 95 % (95-98) 04/12/17 10:58 Abnormal lab findings: Abnormal lab results WBC 19.7 K/mcL (4.3-11.1) H 04/12/17 09:22 RBC 3.50 M/mcL (3.82-4.97) L 04/12/17 09:22 Hgb 10.4 g/dL (11.5-15.4) L 04/12/17 09:22 Hct 30.8 % (35.3-44.9) L 04/12/17 09:22 RDW 14.9 % (11.5-14.5) H 04/12/17 09:22 Neutrophils # 18.3 K/mcL (1.6-8.9) H 04/12/17 09:22 ABG pH 7.31 pH Units (7.32-7.45) L 04/12/17 10:58 ABG pO2 79 mmHg (85-104) L 04/12/17 10:58 ABG HCO3 18 mEq/L (21-27) L 04/12/17 10:58 ABG Total CO2 19 mEq/L (20-26) L 04/12/17 10:58 ABG Base Excess -8 mEq/L (-2 to 3) L 04/12/17 10:58 Est GFR (Non-Af Amer) 52 (> 60) L 04/12/17 08:26 Glucose 182 mg/dL (70-99) H 04/12/17 08:26 POC Glucose 207 (58-89) H 04/12/17 11:36 Lactic Acid 3.5 mmol/L (0.5-2.2) H 04/12/17 10:21 Troponin I 0.07 ng/mL (0-0.03) H* 04/12/17 08:26 B-Natriuretic Peptide 134 pg/mL (0-100) H 04/12/17 08:42 Ur Specific Crivitz 1.027 (1.010-1.025) H 04/12/17 11:14 Urine Protein 30 mg/dL (Neg-Trace) H 04/12/17 11:14 Urine Bilirubin Small (Negative) H 04/12/17 11:14 Ur Squamous Epith Cells Many per lpf (None-Few) H 04/12/17 11:14 Hyaline Casts Many per lpf (None-Few) H 04/12/17 11:14 - Attending Attestation I examined this patient and my medical decision-making was reviewed with the Resident Physician. I agree with the documented findings, disposition and treatment plan as described except to the extent set forth below. Patient seen and examined. Labs, radiology, chart personally reviewed. 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 I went to emergency room to evaluate patient and apparently she is respiratory distress I suspect component of anxiety and after she received Ativan her respiratory rate has improved some. I have advised him to transfer patient to ICU and broaden her antibiotic coverage noninvasive ventilation I have made changes with lowering her IPAP and EPAP to be on 01/31 and patient tolerated better. Patient needs to be in ICU because her condition could deteriorate and may need invasive ventilation. Patient was treated as outpatient and was not successful. I suspect patient could have sleep disordered breathing. Cardiovascular: Patient with troponin elevated most likely this demand ischemia and serial troponin as well as echocardiogram. GI: Nutrition per dietary and GI prophylaxis per routine Heme: DVT prophylaxis per routine ID: Continue antibiotics and plan to de-escalation. Patient with evidence of severe sepsis and she does have normal blood pressure with capillary perfusion is normal with skin slightly cold to touch in her extremities. Renal; urine out put and renal funtion reviewed. Patient with metabolic acidosis secondary to elevated lactic acid. Since patient has received bolus fluid with worsening of her respiration will limit fluid for now and she might even need a low dose of Lasix. Patient will be clinically monitored. Endorcine: blood glucose is monitored Lines: all lines checked and no evidence of infections Skin: skin care to prevent pressure ulcers per nursing routine care I have discussed with the mother at the bedside. I spent 40 min of Critical Care time with this patient. It involved decision making of high complexity to assess, manipulate, and support vital organ system failure and/or to prevent further life threatening deterioration of the patient' s condition. The time involved in the performance of separately reportable procedures was not counted toward critical care time. <Marina Fong H - Last Filed: 04/12/17 17:16> Date of Encounter: 04/12/17 Time of Encounter: 11:48 Assessment and Plan (1) Acute respiratory failure with hypoxia and hypercapnia Current visit: Yes Status: Acute Patient Neck and showing signs of respiratory distress in the emergency department. Patient given Ativan. Upon transfer to the ICU, patient was started on Precedex for anxiety, and BiPAP was altered. -Suspect respiratory distress secondary to pneumonia. -ABG pH 7.31, CO2 36, O2 79, bicarbonate 18. -CXR 04/12/2017- worsening acute pulmonary edema. -Fluid resuscitation in ED for sepsis, patient received 1.7 liters, likely contributing to patient's respiratory status. Will give one time dose of 40 mg IV lasix. -Duonebs -Broad spectrum ABx coverage with levaquin and vancomycin (started 04/12). -Continue close monitoring in the ICU/BiPaP (2) Sepsis Current visit: No Status: Acute Patient with criteria for sepsis on admission. Hypotensive, tachypneic, and tachycardic. Lactic acid 3.3 initially, 3.5 on FU. -Received 1.7 liters of NS in ED. -one dose of ceftriaxone in ED and azithromycin. -Started on vancomycin and levaquin in ICU. -FU blood cultures. Qualifiers: Sepsis type: sepsis due to unspecified organism Qualified Code(s): A41.9 - Sepsis, unspecified organism (3) Pneumonia Current visit: No Status: Acute Patient recently treated with zithromycin. -Start Vancomycin and Levaquin, day 1. Qualifiers: Pneumonia type: due to unspecified organism Laterality: bilateral Lung location: unspecified part of lung Qualified Code(s): J18.9 - Pneumonia, unspecified organism (4) Elevated troponin Current visit: Yes Status: Acute Likely demand ischemia secondary to PNA and pulmonary edema. -FU Serial troponins -FU Echocardiogram (5) Morbid obesity Current visit: Yes Status: Acute -Education on lifestyle changes once condition improves. (6) DVT prophylaxis Current visit: No Status: Acute Heparin SQ 5000 BID Gi Prophylaxis-protonix 40mg IVPB History of Present Illness Chief complaint: Acute respiratory failure HPI: Ms. Montoya is a 56 year old female with past medical history of migraines, HTN , and multiple hospitalizations. She presented to [facility] this morning with complaints of cough, shortness of breath, pain with inspiration, and subjective fevers. She states her symptoms began a week ago and have worsened. She states she has seen her primary care provider 3 different times. She reports completion of a Z-Mehul without improvement. 2 days ago, she began oral Levaquin, however, she states she has yet to see any improvement. Patient was hypotensive, tachycardic, and tachypneic. Patient does report mild degree of right-sided pain with inspiration. She denies sputum production or hemoptysis. Past Med Surg Social Fam HX - Past Medical History Attestation: Yes The following information was validated with the patient. Source: patient Medical history: migraine Psychiatric history: anxiety, bipolar, depression - Past Surgical History Surgical History: , cholecystectomy, herniorrhaphy, hysterectomy - Social History Smoking Status: Former smoker Smokeless Tobacco Status: No Alcohol use: none Drug use: none - Family History Father Living Status: Still Living Hx Family Cardiac Disorders: Yes Mother Family Member Ethnicity: Non- Living Status: Still Living Hx Family Cardiac Disorders: No Hx Family Respiratory Disorders: Yes (short of breath) Hx Family Cancer: No Hx Family GI Disorders: No Hx Family Endocrine Disorder: No Hx Family Neuromuscular Disorders: No Hx Family Neurologic Disorders: No Hx Family HEENT Disorders: No Hx Family Autoimmune Disorders: Yes (hyperthyroid) Grandfather Living Status: Hx Family Cardiac Disorders: Yes All Systems: A 10-system review of systems was performed and is negative for pertinent findings except as documented above in the HPI. - Constitutional Constitutional: chills, fever(s), headache(s), no witnessed apnea - EENT Nose, mouth and throat: as per HPI - Cardiovascular Cardiovascular: dyspnea, no chest pain, no chest pain at rest, no chest pain with activity, no edema, no orthopnea, no palpitations, no rapid heart rate - Respiratory Respiratory: as per HPI, cough, dyspnea, pain on inspirtation, no hemoptysis, no excessive phlegm production - Gastrointestinal Gastrointestinal: no abdominal pain, no diarrhea, no nausea - Psychiatric Psychiatric: anxiety, depression, panic attacks Physical Examination Vital Signs: Vital Signs, Last 4 Hours Pulse Resp BP Pulse Ox 04/12/17 11:10 76 32 144/93 95 General appearance: appears uncomfortable, other (Patient anxious, breathing heavily) Eyes: nonicteric ENT: oropharynx moist Neck: supple Effort: very labored Auscultation: bilateral: wheezes, rhonchi Cardiovascular: regular rate and rhythm Gastrointestinal: normoactive bowel sounds, soft, non-tender, non-distended Integumentary: normal Extremities: no cyanosis, no edema, pink and warm Musculoskeletal: no deformities normal mental status, non-focal exam anxious Results - Laboratory Findings CBC and BMP: 04/12/17 09:22 04/12/17 08:26 ABG ABG pH 7.31 pH Units (7.32-7.45) L 04/12/17 10:58 ABG pCO2 36 mmHg (35-45) 04/12/17 10:58 ABG pO2 79 mmHg (85-104) L 04/12/17 10:58 ABG O2 Saturation 95 % (95-98) 04/12/17 10:58 Abnormal lab findings: Abnormal lab results WBC 19.7 K/mcL (4.3-11.1) H 04/12/17 09:22 RBC 3.50 M/mcL (3.82-4.97) L 04/12/17 09:22 Hgb 10.4 g/dL (11.5-15.4) L 04/12/17 09:22 Hct 30.8 % (35.3-44.9) L 04/12/17 09:22 RDW 14.9 % (11.5-14.5) H 04/12/17 09:22 Neutrophils # 18.3 K/mcL (1.6-8.9) H 04/12/17 09:22 ABG pH 7.31 pH Units (7.32-7.45) L 04/12/17 10:58 ABG pO2 79 mmHg (85-104) L 04/12/17 10:58 ABG HCO3 18 mEq/L (21-27) L 04/12/17 10:58 ABG Total CO2 19 mEq/L (20-26) L 04/12/17 10:58 ABG Base Excess -8 mEq/L (-2 to 3) L 04/12/17 10:58 Est GFR (Non-Af Amer) 52 (> 60) L 04/12/17 08:26 Glucose 182 mg/dL (70-99) H 04/12/17 08:26 Lactic Acid 3.5 mmol/L (0.5-2.2) H 04/12/17 10:21 Troponin I 0.07 ng/mL (0-0.03) H* 04/12/17 08:26 B-Natriuretic Peptide 134 pg/mL (0-100) H 04/12/17 08:42 Ur Specific Crivitz 1.027 (1.010-1.025) H 04/12/17 11:14 Urine Protein 30 mg/dL (Neg-Trace) H 04/12/17 11:14 Urine Bilirubin Small (Negative) H 04/12/17 11:14 Ur Squamous Epith Cells Many per lpf (None-Few) H 04/12/17 11:14 Hyaline Casts Many per lpf (None-Few) H 04/12/17 11:14
[2017-04-12] MEDS ORDERED: Naloxone 0.4 MG/ML INJ IVP PRN (11:51)
[2017-04-12] MEDS ORDERED: Acetaminophen 325 MG TABLET PO PRN (11:51)
[2017-04-12] MEDS ORDERED: Furosemide 40 MG/4 ML VIAL IVP ONE (14:57)
[2017-04-12] MEDS: *HR* Heparin 5,000 UNIT/ML VIAL SQ SCH ×2 (15:08→22:10)
[2017-04-12] MEDS ORDERED: Levofloxacin 500 MG/100 ML 500 MG/100 ML BAG IVPB SCH (17:00)
[2017-04-12 20:39] LABS: ABG Base Excess -2 mEq/L (-2 to 3); ABG HCO3 24 mEq/L (21-27); ABG Oxygen Saturation 97 % (95-98); ABG PCO2 44 mmHg (35-45); ABG PH 7.34 pH Units (7.32-7.45); ABG PO2 102 mmHg (85-104); ABG TCO2 25 mEq/L (20-26)
[2017-04-12] MEDS: Ipratropium/Albuterol Neb 3 ML IH SCH (20:48)
[2017-04-12] MEDS: Sennosides 8.6 MG TABLET PO SCH (21:01)
[2017-04-12] MEDS ORDERED: Acetaminophen IV 500 MG/50 ML INFUS..BTL IVPB ONE (21:13)
[2017-04-12] MEDS ORDERED: Ketorolac 15 MG/ML VIAL IVP ONE (23:55)
[2017-04-13] MEDS: Ipratropium/Albuterol Neb 3 ML IH SCH ×7 (00:22→23:41)
[2017-04-13] MEDS ORDERED: Furosemide 40 MG/4 ML VIAL IVP ONE (02:20)
[2017-04-13] MEDS: Dexmedetomidine HCl 400 MCG/100 ML MLS IVC SCH ×5 (03:09→22:29)
[2017-04-13] MEDS: *HR* Heparin 5,000 UNIT/ML VIAL SQ SCH ×2 (05:30→13:02)
[2017-04-13 05:47] LABS: Eosinophils % 0.1 %; Hematocrit 35.1 % (35.3-44.9); Hemoglobin 11.4 g/dL (11.5-15.4); Immature Granulocytes % 0.8 % (0-4); Immature Platelets 3.3 % (1.1-6.1); Lymphocytes % 3.3 %; Mean Corpuscular HGB Conc 32.5 g/dL (31.6-35.5); Mean Corpuscular Hemoglobin 29.4 pg (28.0-33.3); Mean Corpuscular Volume 90.5 fL (83.0-100.0); Mean Platelet Volume 9.8 fL (9.4-12.4); Monocytes % 2.5 %; Platelet Count 297 K/mcL (140-400); Red Blood Count 3.88 M/mcL (3.82-4.97); Segmented Neutrophils % 93.2 %
[2017-04-13 05:48] LABS: Basophils % 0.1 %; Lymphocytes # 0.6 K/mcL (0.6-4.6); Monocytes # 0.4 K/mcL (0.0-1.3); Neutrophils # 15.8 K/mcL (1.6-8.9)
[2017-04-13 05:59] LABS: BUN/Creatinine Ratio 14 (6-26); Blood Urea Nitrogen 14 mg/dL (7-20); Calcium 8.9 mg/dL (8.6-10.8); Carbon Dioxide 24 mEq/L (19-29); Chloride 103 mEq/L (98-109); Glucose 153 mg/dL (70-99); Osmolality,Calculated 298 (280-300); Potassium 3.5 mEq/L (3.5-4.5); Sodium 142 mEq/L (136-145); eGFR For African Americans > 60 (> 60); eGFR For Non-African Americans 56 (> 60)
[2017-04-13] MEDS: Pantoprazole 40 MG VIAL IVPB SCH (07:41)
[2017-04-13] MEDS: Vancomycin 1,250 MG in D5% in Water 250 ML IVPB SCH (07:41)
[2017-04-13 08:10] LABS: ABG Base Excess 3 mEq/L (-2 to 3); ABG HCO3 26 mEq/L (21-27); ABG Oxygen Saturation 91 % (95-98); ABG PCO2 37 mmHg (35-45); ABG PH 7.46 pH Units (7.32-7.45); ABG PO2 58 mmHg (85-104); ABG TCO2 28 mEq/L (20-26); Blood Gas Modality BiLevel; Blood Gas PEEP 8 cm H2O; Blood Gas Pressure Support 14 cm H2O
[2017-04-13] MEDS ORDERED: Furosemide 20 MG/2 ML VIAL IVP ONE (09:20)
--- NOTE | 2017-04-13 09:42 | Pulmonology Progress Note ---
<Marina Fong - Last Filed: 04/13/17 14:43> Date of Encounter: 04/13/17 Time of Encounter: 09:42 Assessment and Plan (1) Acute respiratory failure with hypoxia and hypercapnia Current Visit: Yes Status: Acute Patient Neck and showing signs of respiratory distress in the emergency department. Patient given Ativan. Upon transfer to the ICU, patient was started on Precedex for anxiety, and BiPAP was altered. -Suspect respiratory distress secondary to pneumonia. -ABG pH 7.31, CO2 36, O2 79, bicarbonate 18. -CXR 04/12/2017- worsening acute pulmonary edema. -Fluid resuscitation in ED for sepsis, patient received 1.7 liters, likely contributing to patient's respiratory status. Will give one time dose of 40 mg IV lasix. -Duonebs -Broad spectrum ABx coverage with levaquin and vancomycin (started 04/12). -04/13/2017-Patient with crackles, shortness of breath, and persistent tachycardia. -troponins stable. -Echo (04/12)LVEF 55-60%, left ventricular diastolic dysfunction. Atypical septal wall motion c/w BBB. -consult to cardiology -ekg -resume home dose metoprolol -diuresis with lasix 40mg IV BID -per cardiology, concern for pulmonary embolus. Recommend heparin drip. Will start heparin standard dose drip. -CT chest tomorrow as patient unable to lay flat today secondary to respiratory status. -restarted home psych medications after giving 2mg Haldol. Anxiety likely contributing to respiratory status, restarted to minimize possibility of withdrawal. -Continue close monitoring in the ICU/BiPaP (2) Sepsis Current Visit: No Status: Acute Patient with criteria for sepsis on admission. Hypotensive, tachypneic, and tachycardic. Lactic acid 3.3 initially, 3.5 on FU. -Received 1.7 liters of NS in ED. -one dose of ceftriaxone in ED and azithromycin. -Started on vancomycin and levaquin in ICU. -Influenzae testing negative. -FU blood cultures. Qualifiers: Sepsis type: sepsis due to unspecified organism Qualified Code(s): A41.9 - Sepsis, unspecified organism (3) Pneumonia Current Visit: No Status: Acute Patient recently treated with azithromycin. -Continue vancomycin and levaquin. Qualifiers: Pneumonia type: due to unspecified organism Laterality: bilateral Lung location: unspecified part of lung Qualified Code(s): J18.9 - Pneumonia, unspecified organism (4) Elevated troponin Current Visit: Yes Status: Acute Likely demand ischemia secondary to PNA and pulmonary edema. -Serial troponins stable, flat and adynamic. -Cardiology following, appreciate their recommendations. (5) Morbid obesity Current Visit: Yes Status: Acute -Education on lifestyle changes once condition improves. (6) DVT prophylaxis Current Visit: No Status: Acute Discontinued heparin SQ BID on 04/13 to start heparin drip while awaiting CT to r/o pulmonary embolus. Gi Prophylaxis-protonix 40mg IVPB Subjective Principal diagnosis: Acute respiratory failure/sepsis/pna Interval history: Patient handling bipap well overnight. Does tend to get anxious which contributes to her tachypnea. Patient remained restless and short of breath throughout the day. Intermittent non-rebreather and bipap. Patient remaining persistently tachycardia. Objective PUL Vital signs: Last Vital Signs Temp 98.9 F 04/13/17 00:15 Pulse 81 04/13/17 07:54 Resp 40 04/13/17 07:55 BP 113/70 04/13/17 07:54 Pulse Ox 95 04/13/17 07:55 General appearance: no acute distress Eyes: nonicteric ENT: oropharynx dry Effort: mildly labored Auscultation: bilateral: rales Cardiovascular: regular rate and rhythm Gastrointestinal: normoactive bowel sounds, soft, non-distended Integumentary: normal Extremities: no cyanosis, no edema anxious Results - Laboratory Findings CBC and BMP: 04/13/17 05:37 04/13/17 05:37 ABG ABG pH 7.46 pH Units (7.32-7.45) H 04/13/17 07:52 ABG pCO2 37 mmHg (35-45) 04/13/17 07:52 ABG pO2 58 mmHg (85-104) L 04/13/17 07:52 ABG O2 Saturation 91 % (95-98) L 04/13/17 07:52 Abnormal lab findings: Abnormal lab results WBC 16.9 K/mcL (4.3-11.1) H 04/13/17 05:37 Hgb 11.4 g/dL (11.5-15.4) L 04/13/17 05:37 Hct 35.1 % (35.3-44.9) L 04/13/17 05:37 RDW 15.0 % (11.5-14.5) H 04/13/17 05:37 Neutrophils # 15.8 K/mcL (1.6-8.9) H 04/13/17 05:37 ABG pH 7.46 pH Units (7.32-7.45) H 04/13/17 07:52 ABG pO2 58 mmHg (85-104) L 04/13/17 07:52 ABG Total CO2 28 mEq/L (20-26) H 04/13/17 07:52 ABG O2 Saturation 91 % (95-98) L 04/13/17 07:52 Est GFR (Non-Af Amer) 56 (> 60) L 04/13/17 05:37 Glucose 153 mg/dL (70-99) H 04/13/17 05:37 POC Glucose 189 (58-89) H 04/12/17 23:51 Lactic Acid 2.5 mmol/L (0.5-2.2) H 04/13/17 05:37 Troponin I 0.07 ng/mL (0-0.03) H* 04/13/17 05:37 B-Natriuretic Peptide 230 pg/mL (0-100) H 04/13/17 05:37 Ur Specific Metz 1.027 (1.010-1.025) H 04/12/17 11:14 Urine Protein 30 mg/dL (Neg-Trace) H 04/12/17 11:14 Urine Bilirubin Small (Negative) H 04/12/17 11:14 Ur Squamous Epith Cells Many per lpf (None-Few) H 04/12/17 11:14 Hyaline Casts Many per lpf (None-Few) H 04/12/17 11:14 - Clinical Findings Intake & Output: Intake & Output 04/12/17 04/13/17 04/13/17 23:59 07:59 15:59 Intake Total 334 / 334 200 / 200 Output Total 1050 / 1050 450 / 450 Balance -716 / -716 -250 / -250 Weight 83.2 kg Consult Discharge Plan - Plan Referrals: Iman Monae, [employer] [Primary Care Provider] - <Russell Carpenter - Last Filed: 04/13/17 20:38> Date of Encounter: 04/13/17 Objective PUL Vital signs: Last Vital Signs Temp 97.9 F 04/13/17 07:54 Pulse 92 04/13/17 10:00 Resp 40 04/13/17 10:00 BP 81/53 04/13/17 10:00 Pulse Ox 88 04/13/17 10:00 Results - Laboratory Findings CBC and BMP: 04/13/17 05:37 04/13/17 05:37 ABG ABG pH 7.46 pH Units (7.32-7.45) H 04/13/17 07:52 ABG pCO2 37 mmHg (35-45) 04/13/17 07:52 ABG pO2 58 mmHg (85-104) L 04/13/17 07:52 ABG O2 Saturation 91 % (95-98) L 04/13/17 07:52 Abnormal lab findings: Abnormal lab results WBC 16.9 K/mcL (4.3-11.1) H 04/13/17 05:37 Hgb 11.4 g/dL (11.5-15.4) L 04/13/17 05:37 Hct 35.1 % (35.3-44.9) L 04/13/17 05:37 RDW 15.0 % (11.5-14.5) H 04/13/17 05:37 Neutrophils # 15.8 K/mcL (1.6-8.9) H 04/13/17 05:37 ABG pH 7.46 pH Units (7.32-7.45) H 04/13/17 07:52 ABG pO2 58 mmHg (85-104) L 04/13/17 07:52 ABG Total CO2 28 mEq/L (20-26) H 04/13/17 07:52 ABG O2 Saturation 91 % (95-98) L 04/13/17 07:52 Est GFR (Non-Af Amer) 56 (> 60) L 04/13/17 05:37 Glucose 153 mg/dL (70-99) H 04/13/17 05:37 POC Glucose 189 (58-89) H 04/12/17 23:51 Lactic Acid 2.5 mmol/L (0.5-2.2) H 04/13/17 05:37 Troponin I 0.07 ng/mL (0-0.03) H* 04/13/17 05:37 B-Natriuretic Peptide 230 pg/mL (0-100) H 04/13/17 05:37 Ur Specific Metz 1.027 (1.010-1.025) H 04/12/17 11:14 Urine Protein 30 mg/dL (Neg-Trace) H 04/12/17 11:14 Urine Bilirubin Small (Negative) H 04/12/17 11:14 Ur Squamous Epith Cells Many per lpf (None-Few) H 04/12/17 11:14 Hyaline Casts Many per lpf (None-Few) H 04/12/17 11:14 - Clinical Findings Intake & Output: Intake & Output 04/12/17 04/13/17 04/13/17 23:59 07:59 15:59 Intake Total 334 / 334 200 / 200 250 / 250 Output Total 1050 / 1050 450 / 450 Balance -716 / -716 -250 / -250 250 / 250 Weight 83.2 kg - Attending Attestation I examined this patient and my medical decision-making was reviewed with the Resident Physician. I agree with the documented findings, disposition and treatment plan as described except to the extent set forth below. Patient seen and examined. Labs, radiology, chart personally reviewed. 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 Will add Halodol Pulmonary: Reviewing chest x-ray this is primarily in my opinion pulmonary edema and I suspect this is cardiogenic since BNP is elevated and the chest x- ray with echocardiogram shows some diastolic. On patient able to lie flat may need CT chest and if cultures come back negative then antibiotic can be stopped. Patient will be on nonrebreather mask and positional therapy since she has restrictive physiology from her morbid obesity. Patient at risk of having respiratory status could deteriorate and may need invasive mechanical ventilation. Cardiovascular: Will diurese patient more aggressively and consulted cardiology. Patient has pulmonary edema on CXR with tropinin and elevated with some abnormalities in the echocardiogram and this could be cardiac problem. GI: Nutrition per dietary and GI prophylaxis per routine Heme: DVT prophylaxis per routine ID: Continue antibiotics and plan to de-escalation Renal; urine out put and renal funtion reviewed. Patient with evidence of respiratory alkalosis and I expect with trying just nonrebreather mask may correct this. Endorcine: blood glucose is monitored Lines: all lines checked and no evidence of infections Skin: skin care to prevent pressure ulcers per nursing routine care Patient needs to stay in ICU for close monitoring mainly due to her respiration and work of breathing. I spent 32 min of Critical Care time with this patient. It involved decision making of high complexity to assess, manipulate, and support vital organ system failure and/or to prevent further life threatening deterioration of the patient' s condition. The time involved in the performance of separately reportable procedures was not counted toward critical care time.
[2017-04-13] MEDS ORDERED: Haloperidol Lactate 5 MG/ML VIAL ONE (11:56)
[2017-04-13] MEDS ORDERED: Haloperidol Lactate 5 MG/ML VIAL IVP ONE ×2 (12:06→20:57)
[2017-04-13] MEDS ORDERED: Metoprolol XL (24 HR) Succ 25 MG TAB.ER.24H PO SCH (13:00)
--- NOTE | 2017-04-13 14:18 | Cardiology Consult Note ---
Date of Encounter: 04/13/17 Time of Encounter: 14:13 Assessment and Plan (1) Pulmonary edema Current Visit: Yes Status: Acute Chest x-ray suggested presence of worsening pulmonary edema. Prior CT chest in July 2016 demonstrated patchy groundglass infiltrates within the lungs bilaterally, possibly atypical infectious process or possible mild pulmonary edema. Echocardiogram reviewed and demonstrates normal systolic function with evidence of mild diastolic function. Findings on chest x-ray could represent diastolic heart failure. Recommend trial of scheduled diuresis, Lasix 40 mg IV twice daily. Monitor Cr, daily weights, I/Os. Hopefully, patient's symptoms will improve. If symptoms persist despite diuresis, recommend repeat CT scan to further evaluate and to exclude PE. Mild troponin elevation noted. Recommend empiric heparin until this can be performed. Qualifiers: Chronicity: acute Qualified Code(s): J81.0 - Acute pulmonary edema Discussion w patient/family: The assessment and plan as outlined above was discussed with the patient and/or family members who expressed understanding and agreement. All questions were answered. Thank you for involving us in the care of your patient. Please call with any questions. History of Present Illness Consult date: 04/13/17 Requesting physician: Russell Carpenter Consult reason: CHF Chief complaint: Dyspnea History of present illness: Ms. Montoya is a 56 year old female who presented to the ER with complaints of shortness of breath and cough. Patient reported symptoms began at least one week prior to arrival. Patient recently on antibiotics. Upon my arrival to see the patient in the ICU, she is on BiPAP. Her respiratory rate is at least 40- 50. She is requiring 90% FiO2. Patient reports that she feels mildly improved compared to yesterday. She denies any known history of heart problems. She states that she has never required a cardiac catheterization in the past. Chest x-ray performed today demonstrates severe acute pulmonary edema, which has worsened since yesterday. TTE performed and demonstrates an LVEF of 55-60%. Atypical septal motion noted. Mildly dilated right ventricle with normal function noted. No significant valvular dysfunction. Leukocytosis noted. Most recent ABG demonstrates a PO2 of 58 on 90% FiO2. Mild troponin elevation, 0.06, 0.07. BNP 134, 230. Previous pulmonary function testing in July 2016 demonstrated moderate airway restriction, no response to bronchodilators. Patient has received IV Lasix intermittently, but is not on scheduled doses. Creatinine is normal. Past Med Surg Social Fam HX - Past Medical History Medical history: migraine Psychiatric history: anxiety, bipolar, depression - Past Surgical History Surgical History: , cholecystectomy, herniorrhaphy, hysterectomy - Social History Smoking Status: Former smoker Smokeless Tobacco Status: No Alcohol use: none Drug use: none - Family History Father Name: lenny Age: 89 Living Status: Still Living Hx Family Cardiac Disorders: Yes Mother Adopted: [place]: ariel Age: 81 Family Member Ethnicity: Non- Living Status: Still Living Hx Family Cardiac Disorders: No Hx Family Respiratory Disorders: Yes (short of breath) Hx Family Cancer: No Hx Family GI Disorders: No Hx Family Endocrine Disorder: No Hx Family Neuromuscular Disorders: No Hx Family Neurologic Disorders: No Hx Family HEENT Disorders: No Hx Family Autoimmune Disorders: Yes (hyperthyroid) Grandfather Living Status: Hx Family Cardiac Disorders: Yes Medications and Allergies Chlorpromazine HCl 100 mg PO QAM 12/25/16 [History] Chlorpromazine HCl 300 mg PO HS 12/25/16 [History] OLANZapine [Zyprexa] 5 mg PO HS 12/25/16 [History] Paroxetine [Paxil] 60 mg PO DAILY 12/25/16 [History] Calcium Carbonate [Tums] 1,000 mg PO Q4HR PRN 12/27/16 [Rx] Omeprazole [PriLOSEC] 20 mg PO BIDAC #60 cap 12/27/16 [Rx] Albuterol Sulfate [Ventolin Hfa] 2 puff IH Q6H PRN 04/12/17 [History] Baclofen [Lioresal] 20 mg PO QPM 04/12/17 [History] Cyprohepatdine [Periactin] 4 mg PO BID 04/12/17 [History] Metoprolol XL (24 HR) Succ [Toprol XL] 25 mg PO DAILY 04/12/17 [History] Promethazine [Phenergan] 12.5 mg PO DAILY PRN 04/12/17 [History] levoFLOXacin [Levaquin] 500 mg PO DAILY 04/12/17 [History] rOPINIRole [Requip] 0.25 mg PO HS 04/12/17 [History] 3 Allergy/AdvReac Type Severity Reaction Status Date / Time metoclopramide [From Reglan] Allergy Mild Itching Verified 03/22/17 09:27 tramadol Allergy Mild Itching Verified 03/22/17 09:27 amitriptyline Allergy Itching Verified 03/22/17 09:27 codeine Allergy Hives Verified 03/22/17 09:27 Sulfa (Sulfonamide Allergy See Verified 03/22/17 09:27 Antibiotics) Comments sulfamethoxazole Allergy See Verified 03/22/17 09:27 [From Bactrim] Comments trimethoprim [From Bactrim] Allergy See Verified 03/22/17 09:27 Comments lorazepam [From Ativan] AdvReac Mild Anxiety Verified 03/22/17 09:27 benztropine [From Cogentin] AdvReac See Verified 03/22/17 09:27 Comments ciprofloxacin [From Cipro] AdvReac See Verified 03/22/17 09:27 Comments onabotulinumtoxinA AdvReac See Verified 03/22/17 09:27 [From Botox] Comments sertraline [From Zoloft] AdvReac Headache Verified 03/22/17 09:27 sumatriptan [From Imitrex] AdvReac Agitated Verified 03/22/17 09:27 topiramate [From Topamax] AdvReac See Verified 03/22/17 09:27 Comments ROS unobtainable: other (Difficult for patient to communicate due to BiPAP.) All Systems Review: A 10-system review of systems was performed and is negative for pertinent findings except as documented above in the HPI. Physical Examination Vital Signs, Last 4 Hours Temp Pulse Resp BP Pulse Ox 04/13/17 13:00 99.4 F 131 54 116/100 93 04/13/17 12:00 118 57 114/59 93 04/13/17 11:38 30 88 04/13/17 11:00 110 36 111/65 88 General: Other (Patient able to converse, but difficult to understand due to BiPAP. Tachypnea noted.) HEENT: Atraumatic, Normocephaly, Mucus Membranes Moist Neck: No JVD Cardiac: Other (Distant, but regular. No murmurs appreciated.) Lungs: Other (Tachypnea, shallow.) Neuro: Other (Seems somewhat anxious.) Abdomen: Soft, Non-Tender Skin: No rashes noted on visualized skin Musculoskeletal: No Chest Wall Tenderness Extremities: No Clubbing, No Cyanosis, No Edema Results 04/13/17 05:37 04/13/17 05:37 Lab Results 04/12/17 04/13/17 04/13/17 17:38 00:06 05:37 WBC Hgb Hct Plt Count Sodium Potassium Chloride Carbon Dioxide BUN Creatinine Glucose Calcium Troponin I 0.06 H* 0.06 H* 0.07 H* B-Natriuretic Peptide 04/13/17 04/13/17 04/13/17 05:37 05:37 05:37 WBC 16.9 H Hgb 11.4 L Hct 35.1 L Plt Count 297 Sodium 142 Potassium 3.5 Chloride 103 Carbon Dioxide 24 BUN 14 Creatinine 1.01 Glucose 153 H Calcium 8.9 Troponin I B-Natriuretic Peptide 230 H - Imaging and Cardiology Chest Xray: report reviewed Echo: report reviewed Consult Discharge Plan - Plan Referrals: Iman Monae COTTRELL BLOWER [Primary Care Provider] -
[2017-04-13] MEDS ORDERED: Heparin 25,000 UNIT/500 ML D5W 25,000 UNIT/500 ML BAG IVC SCH (14:45)
[2017-04-13] MEDS: Furosemide 40 MG/4 ML VIAL IVP SCH ×2 (16:13→19:29)
[2017-04-13] MEDS ORDERED: Baclofen 10 MG TABLET PO SCH (18:00)
[2017-04-13] MEDS: Sennosides 8.6 MG TABLET PO SCH (19:29)
[2017-04-13] MEDS ORDERED: Ketorolac 15 MG/ML VIAL IVP ONE (20:45)
[2017-04-13] MEDS ORDERED: chlorproMAZINE 25 MG TABLET PO SCH (21:00)
[2017-04-13] MEDS ORDERED: rOPINIRole 0.25 MG TABLET PO SCH (21:00)
[2017-04-13] MEDS ORDERED: OLANZapine 5 MG TAB.RAPDIS PO SCH (21:00)
[2017-04-13 21:06] LABS: ABG Base Excess -1 mEq/L (-2 to 3); ABG HCO3 26 mEq/L (21-27); ABG Oxygen Saturation 98 % (95-98); ABG PCO2 54 mmHg (35-45); ABG PO2 119 mmHg (85-104); ABG TCO2 28 mEq/L (20-26); Blood Gas PEEP 4 cm H2O
[2017-04-13 21:25] LABS: Basophils % 0.1 %; Eosinophils % 0.3 %; Hematocrit 32.8 % (35.3-44.9); Hemoglobin 10.6 g/dL (11.5-15.4); Immature Granulocytes % 0.9 % (0-4); Lymphocytes # 0.9 K/mcL (0.6-4.6); Lymphocytes % 5.9 %; Mean Corpuscular HGB Conc 32.3 g/dL (31.6-35.5); Mean Corpuscular Hemoglobin 29.4 pg (28.0-33.3); Mean Corpuscular Volume 90.9 fL (83.0-100.0); Mean Platelet Volume 9.9 fL (9.4-12.4); Monocytes # 0.4 K/mcL (0.0-1.3); Monocytes % 2.9 %; Neutrophils # 13.2 K/mcL (1.6-8.9); Platelet Count 282 K/mcL (140-400); Red Blood Count 3.61 M/mcL (3.82-4.97); Red Cell Distribution Width 14.8 % (11.5-14.5); Segmented Neutrophils % 89.9 %
[2017-04-13 21:38] LABS: Alanine Aminotransferase 22 Units/L (0-55); Albumin 2.4 g/dL (3.5-5.0); Albumin/Globulin Ratio 0.6 (1.1-2.2); Alkaline Phosphatase 259 Units/L (38-126); Aspartate Amino Transferase 27 Units/L (5-34); BUN/Creatinine Ratio 17 (6-26); Bilirubin,Total 0.4 mg/dL (0.2-1.2); Blood Urea Nitrogen 19 mg/dL (7-20); Calcium 8.7 mg/dL (8.6-10.8); Carbon Dioxide 25 mEq/L (19-29); Chloride 97 mEq/L (98-109); Globulin 4.2 g/dL (2.4-3.5); Glucose 212 mg/dL (70-99); Magnesium 1.3 mg/dL (1.6-2.6); Osmolality,Calculated 297 (280-300); Sodium 139 mEq/L (136-145); Total Protein 6.6 g/dL (6.0-8.3); eGFR For African Americans > 60 (> 60); eGFR For Non-African Americans 50 (> 60)
[2017-04-13 23:07] LABS: Activated Partial Thrombo Time 193.6 Seconds (26.0-36.0)
[2017-04-13 23:14] LABS: Heparin anti-factor XA UFH 0.43 IU/mL (0.30-0.70)
[2017-04-14] MEDS: Dexmedetomidine HCl 400 MCG/100 ML MLS IVC SCH ×3 (03:06→16:07)
[2017-04-14] MEDS: Ipratropium/Albuterol Neb 3 ML IH SCH ×5 (03:57→19:37)
[2017-04-14 04:02] LABS: ABG Base Excess 3 mEq/L (-2 to 3); ABG HCO3 27 mEq/L (21-27); ABG Oxygen Saturation 94 % (95-98); ABG PCO2 37 mmHg (35-45); ABG PH 7.46 pH Units (7.32-7.45); ABG PO2 66 mmHg (85-104); ABG TCO2 28 mEq/L (20-26); Blood Gas PEEP 7 cm H2O
[2017-04-14 05:11] LABS: Basophils % 0.2 %; Eosinophils # 0.3 K/mcL (0.0-0.6); Hematocrit 30.4 % (35.3-44.9); Hemoglobin 9.9 g/dL (11.5-15.4); Immature Granulocytes % 0.6 % (0-4); Lymphocytes # 1.7 K/mcL (0.6-4.6); Lymphocytes % 13.2 %; Mean Corpuscular HGB Conc 32.6 g/dL (31.6-35.5); Mean Corpuscular Hemoglobin 29.6 pg (28.0-33.3); Mean Platelet Volume 9.7 fL (9.4-12.4); Monocytes # 0.3 K/mcL (0.0-1.3); Monocytes % 2.6 %; Neutrophils # 10.2 K/mcL (1.6-8.9); Platelet Count 266 K/mcL (140-400); Red Blood Count 3.34 M/mcL (3.82-4.97); Red Cell Distribution Width 14.9 % (11.5-14.5); Segmented Neutrophils % 81.4 %
[2017-04-14 05:22] LABS: BUN/Creatinine Ratio 21 (6-26); Blood Urea Nitrogen 19 mg/dL (7-20); Calcium 8.7 mg/dL (8.6-10.8); Carbon Dioxide 26 mEq/L (19-29); Chloride 100 mEq/L (98-109); Glucose 126 mg/dL (70-99); Osmolality,Calculated 292 (280-300); Potassium 3.3 mEq/L (3.5-4.5); Sodium 139 mEq/L (136-145); eGFR For African Americans > 60 (> 60); eGFR For Non-African Americans > 60 (> 60)
[2017-04-14 07:53] LABS: Activated Partial Thrombo Time 124.6 Seconds (26.0-36.0)
[2017-04-14 08:09] LABS: Heparin anti-factor XA UFH 0.19 IU/mL (0.30-0.70)
[2017-04-14 08:42] LABS: Magnesium 1.4 mg/dL (1.6-2.6)
[2017-04-14] MEDS ORDERED: *HR* Succinylcholine 200 MG/10 ML VIAL IVP ONE (08:42)
[2017-04-14] MEDS ORDERED: *HR* Midazolam HCl 5 MG/5 ML VIAL IVP ONE ×2 (08:42→10:48)
[2017-04-14] MEDS ORDERED: *HR* Rocuronium Bromide 50 MG/5 ML VIAL IVC ONE (08:42)
[2017-04-14] MEDS ORDERED: *HR* Etomidate 20 MG/10 ML AMPUL IVP ONE ×2 (08:42→10:48)
[2017-04-14] MEDS ORDERED: chlorproMAZINE 25 MG TABLET PO SCH (09:00)
--- NOTE | 2017-04-14 09:31 | Pulmonology Progress Note ---
<Marcus Antoine - Last Filed: 04/14/17 14:29> Date of Encounter: 04/14/17 Time of Encounter: 09:25 Assessment and Plan (1) Acute respiratory failure with hypoxia and hypercapnia Current Visit: Yes Status: Acute Likely secondary to PNA and pulmonary edema Patient required intubation and mechanical ventilation due to increased work of breathing and risk of respiratory fatigue. Latest ABG post Vent pH 7.2/ CO2 76/ O2 169/ Bicarb 30/ o2% 99/ BE 0 Latest CXR showed unchanged asymmetric L airspace opacity, diffuse interstitial opacity b/l, mild/moderate cardiomegaly, suspected b/l effusions. Echo: EF 55-60%, BBB, mild diastolic Dysfunction Heparin drip stopped for possible thoracentesis but no area of drainable fluid detected on U/S so resumed. Still concern for possible PE. Portion of patient's respiratory distress due to anxiety. Continue mechanical ventilation protocols Continue Levaquin and Vancomycin day 3 continue Lasix 40mg BID for diuresis continue breathing treatments Continue anxiolytics Converted or Stopped PO meds due to vent Consider CTA tomorrow (2) Sepsis Current Visit: Yes Status: Acute Patient met Sepsis criteria on admission due to hypotension, tachypnea, tachycardia, and LA of 3.3 Received Ceftriaxone, and Azithromycin in ED Patient started on Vanc and Levaquin in the ICU today Day 3 Respiratory viral panel negative including influenza Preliminary BCx are negative. continue Vanc and Levaquin. continue to monitor vitals Qualifiers: Sepsis type: sepsis due to unspecified organism Qualified Code(s): A41.9 - Sepsis, unspecified organism (3) Pneumonia Current Visit: Yes Status: Acute Patient met Sepsis criteria on admission due to hypotension, tachypnea, tachycardia, and LA of 3.3 Received Ceftriaxone, and Azithromycin in ED Patient started on Vanc and Levaquin in the ICU today Day 3 Respiratory viral panel negative including influenza Preliminary BCx are negative. continue Vanc and Levaquin. continue to monitor vitals Qualifiers: Pneumonia type: due to unspecified organism Laterality: bilateral Lung location: unspecified part of lung Qualified Code(s): J18.9 - Pneumonia, unspecified organism (4) Pulmonary edema Current Visit: Yes Status: Acute Likely secondary to diastolic dysfunction and fluids given in ED Continue Lasix 40mg IV BID Qualifiers: Chronicity: acute Qualified Code(s): J81.0 - Acute pulmonary edema (5) Elevated troponin Current Visit: Yes Status: Acute Likely secondary to demand ischemia Cardiology is on board Trops stable, flat, and adynamic x 4 (0.06, 0.07), 5th trop was slightly higher 0.15 consider trending trops down continue to follow Cardio's appreciated recommendations (6) Electrolyte abnormality Current Visit: Yes Status: Acute Patient was found to be mildly hypoklaemic 3.3 and hypomagnesic 1.4 Patient was given 4g IV mag today over 4 hrs Continue to monitor Continue to replete as needed (7) Anxiety Current Visit: Yes Status: Acute Pt hx of Anxiety, Depression, Bipolar, and migraines Pt was on numerous psych medications Baclofen, Thorazine, Precedex drip, Zyprexa , Paxil, and Requip Oral medications stopped due to intubation and sedation with fentanyl, propofol , Vec Continue order for Precedex drip hold rest of meds (8) Bipolar disorder Current Visit: No Status: Chronic Holding meds due to intubation Qualifiers: Active/Remission status: remission status unspecified Qualified Code(s): F31.9 - Bipolar disorder, unspecified (9) DVT prophylaxis Current Visit: No Status: Acute Pt on heparin Drip due to concern for PE on PPI for GI PPx Subjective Principal diagnosis: Acute respiratory failure/sepsis/pna Interval history: 56 F c PMHx of HTN, anxiety, bipolar, depression, migraine admitted for acute respiratory failure, and sepsis. Patient reports her breathing is improved today. She denies chest pain, abdominal pain, nausea, vomiting, diarrhea. She reports using the bathroom well, an in place. Objective PUL Vital signs: Last Vital Signs Temp 97.6 F 04/14/17 07:00 Pulse 87 04/14/17 08:15 Resp 41 04/14/17 08:15 BP 76/55 04/14/17 08:15 Pulse Ox 90 04/14/17 08:15 General appearance: no acute distress, alert Eyes: nonicteric ENT: oropharynx dry Neck: supple Effort: mildly labored Auscultation: bilateral: rales Cardiovascular: regular rate and rhythm Gastrointestinal: normoactive bowel sounds, soft, non-tender, non-distended Integumentary: normal Extremities: no cyanosis, no edema Musculoskeletal: no deformities mood appropriate Ventilator Settings Ventilator Settings: VC /FiO2: 100 /TV 450/ PEEP 10/ RR 20 Results - Laboratory Findings CBC and BMP: 04/14/17 04:55 04/14/17 09:58 ABG ABG pH 7.46 pH Units (7.32-7.45) H 04/14/17 03:59 ABG pCO2 37 mmHg (35-45) 04/14/17 03:59 ABG pO2 66 mmHg (85-104) L 04/14/17 03:59 ABG O2 Saturation 94 % (95-98) L 04/14/17 03:59 Abnormal lab findings: Abnormal lab results WBC 12.5 K/mcL (4.3-11.1) H 04/14/17 04:55 RBC 3.34 M/mcL (3.82-4.97) L 04/14/17 04:55 Hgb 9.9 g/dL (11.5-15.4) L 04/14/17 04:55 Hct 30.4 % (35.3-44.9) L 04/14/17 04:55 RDW 14.9 % (11.5-14.5) H 04/14/17 04:55 Neutrophils # 10.2 K/mcL (1.6-8.9) H 04/14/17 04:55 APTT 124.6 Seconds (26.0-36.0) H* 04/14/17 06:41 Heparin Anti-Xa, Unfract 0.19 IU/mL (0.30-0.70) L 04/14/17 06:41 ABG pH 7.46 pH Units (7.32-7.45) H 04/14/17 03:59 ABG pO2 66 mmHg (85-104) L 04/14/17 03:59 ABG Total CO2 28 mEq/L (20-26) H 04/14/17 03:59 ABG O2 Saturation 94 % (95-98) L 04/14/17 03:59 Potassium 3.3 mEq/L (3.5-4.5) L 04/14/17 04:55 Glucose 126 mg/dL (70-99) H 04/14/17 04:55 POC Glucose 189 (58-89) H 04/12/17 23:51 Lactic Acid 3.1 mmol/L (0.5-2.2) H 04/14/17 04:55 Magnesium 1.4 mg/dL (1.6-2.6) L 04/14/17 04:55 Alkaline Phosphatase 259 Units/L (38-126) H 04/13/17 21:04 Troponin I 0.15 ng/mL (0-0.03) H* 04/13/17 21:04 B-Natriuretic Peptide 230 pg/mL (0-100) H 04/13/17 05:37 Albumin 2.4 g/dL (3.5-5.0) L 04/13/17 21:04 Globulin 4.2 g/dL (2.4-3.5) H 04/13/17 21:04 Albumin/Globulin Ratio 0.6 (1.1-2.2) L 04/13/17 21:04 Ur Specific [place] 1.027 (1.010-1.025) H 04/12/17 11:14 Urine Protein 30 mg/dL (Neg-Trace) H 04/12/17 11:14 Urine Bilirubin Small (Negative) H 04/12/17 11:14 Ur Squamous Epith Cells Many per lpf (None-Few) H 04/12/17 11:14 Hyaline Casts Many per lpf (None-Few) H 04/12/17 11:14 - Diagnostic Findings Chest x-ray: image reviewed - Clinical Findings Intake & Output: Intake & Output 04/13/17 04/14/17 04/14/17 23:59 07:59 15:59 Intake Total 1200 / 1200 652 / 652 Output Total 800 / 800 600 / 600 Balance 400 / 400 52 / 52 Weight 82 kg Consult Discharge Plan - Plan Referrals: Iman Monae CNP [Primary Care Provider] - <Elie Mijares - Last Filed: 04/14/17 22:00> Date of Encounter: 04/14/17 Objective PUL Vital signs: Last Vital Signs Temp 98.6 F 04/14/17 16:00 Pulse 91 04/14/17 18:00 Resp 20 04/14/17 18:00 BP 95/51 04/14/17 18:00 Pulse Ox 100 04/14/17 18:00 Ventilator Settings Ventilator Settings: Ventilator Settings, Last 8 Hours Ventilator Mode VC+ Ventilator Mode VC+ Ventilator Mode VC+ Ventilator Mode VC+ Ventilator Mode VC+ Ventilator Mode VC+ Ventilator Mode VC+ Ventilator Mode VC+ Ventilator Mode VC+ Ventilator Mode VC+ Ventilator Mode VC+ Ventilator Tidal Volume 380 Setting Ventilator Tidal Volume 380 Setting Ventilator Tidal Volume 380 Setting Ventilator Tidal Volume 450 Setting Ventilator Tidal Volume 450 Setting Ventilator Tidal Volume 450 Setting Ventilator Tidal Volume 450 Setting Ventilator Tidal Volume 450 Setting Ventilator Tidal Volume 450 Setting Ventilator Tidal Volume 350 Setting Ventilator Tidal Volume 300 Setting Ventilator Respiratory Rate 20 Setting Ventilator Respiratory Rate 20 Setting Ventilator Respiratory Rate 20 Setting Ventilator Respiratory Rate 20 Setting Ventilator Respiratory Rate 20 Setting Ventilator Respiratory Rate 20 Setting Ventilator Respiratory Rate 20 Setting Ventilator Respiratory Rate 20 Setting Ventilator Respiratory Rate 20 Setting Ventilator Respiratory Rate 18 Setting Ventilator Respiratory Rate 18 Setting Actual Respiratory Rate 20 Actual Respiratory Rate 20 Actual Respiratory Rate 20 Actual Respiratory Rate 20 Actual Respiratory Rate 20 Actual Respiratory Rate 20 Actual Respiratory Rate 20 Actual Respiratory Rate 30 Actual Respiratory Rate 18 Positive End Expiratory 5 Pressure Positive End Expiratory 5 Pressure Positive End Expiratory 5 Pressure Positive End Expiratory 5 Pressure Positive End Expiratory 10 Pressure Positive End Expiratory 10 Pressure Positive End Expiratory 10 Pressure Positive End Expiratory 10 Pressure Positive End Expiratory 10 Pressure Positive End Expiratory 5 Pressure Positive End Expiratory 10 Pressure Peak Inspiratory Airway 42 Pressure Peak Inspiratory Airway 42 Pressure Peak Inspiratory Airway 42 Pressure Peak Inspiratory Airway 54 Pressure Peak Inspiratory Airway 53 Pressure Results - Laboratory Findings CBC and BMP: 04/14/17 04:55 04/14/17 09:58 ABG ABG pH 7.42 pH Units (7.32-7.45) D 04/14/17 16:04 ABG pCO2 42 mmHg (35-45) D 04/14/17 16:04 ABG pO2 136 mmHg (85-104) H 04/14/17 16:04 ABG O2 Saturation 99 % (95-98) H 04/14/17 16:04 PT/INR, D-dimer PT 15.4 Seconds (9.4-12.1) H 04/14/17 06:41 Abnormal lab findings: Abnormal lab results WBC 12.5 K/mcL (4.3-11.1) H 04/14/17 04:55 RBC 3.34 M/mcL (3.82-4.97) L 04/14/17 04:55 Hgb 9.9 g/dL (11.5-15.4) L 04/14/17 04:55 Hct 30.4 % (35.3-44.9) L 04/14/17 04:55 RDW 14.9 % (11.5-14.5) H 04/14/17 04:55 Neutrophils # 10.2 K/mcL (1.6-8.9) H 04/14/17 04:55 PT 15.4 Seconds (9.4-12.1) H 04/14/17 06:41 APTT 124.6 Seconds (26.0-36.0) H* 04/14/17 06:41 Heparin Anti-Xa, Unfract 0.19 IU/mL (0.30-0.70) L 04/14/17 06:41 ABG pO2 136 mmHg (85-104) H 04/14/17 16:04 ABG Total CO2 29 mEq/L (20-26) H 04/14/17 16:04 ABG O2 Saturation 99 % (95-98) H 04/14/17 16:04 Glucose 126 mg/dL (70-99) H 04/14/17 04:55 POC Glucose 189 (58-89) H 04/12/17 23:51 Lactic Acid 3.1 mmol/L (0.5-2.2) H 04/14/17 04:55 Magnesium 1.4 mg/dL (1.6-2.6) L 04/14/17 04:55 Alkaline Phosphatase 259 Units/L (38-126) H 04/13/17 21:04 Troponin I 0.05 ng/mL (0-0.03) H* 04/14/17 16:45 B-Natriuretic Peptide 230 pg/mL (0-100) H 04/13/17 05:37 Albumin 2.4 g/dL (3.5-5.0) L 04/13/17 21:04 Globulin 4.2 g/dL (2.4-3.5) H 04/13/17 21:04 Albumin/Globulin Ratio 0.6 (1.1-2.2) L 04/13/17 21:04 Ur Specific [place] 1.027 (1.010-1.025) H 04/12/17 11:14 Urine Protein 30 mg/dL (Neg-Trace) H 04/12/17 11:14 Urine Bilirubin Small (Negative) H 04/12/17 11:14 Ur Squamous Epith Cells Many per lpf (None-Few) H 04/12/17 11:14 Hyaline Casts Many per lpf (None-Few) H 04/12/17 11:14 - Microbiology Findings Microbiology Findings: Microbiology, Last 48 Hours 04/14/17 12:35 Sputum Culture - Preliminary Sputum - Clinical Findings Intake & Output: Intake & Output 04/14/17 04/14/17 04/14/17 07:59 15:59 23:59 Intake Total 652 / 652 300 / 300 270 / 270 Output Total 600 / 600 500 / 500 Balance 52 / 52 -200 / -200 270 / 270 Weight 82 kg - Attending Attestation I saw the patient with the resident agree with History and Physical exam findings. Labs and Radiology were reviewed Ventilator data were reviewed adjusted TV to low tidal volume strategy PROJECT CONSULTANT: Patient is conscious oriented x3 following commands before intubation , after intubated sedated NECK : No JVD appreciated Pulmonary : Patient has worsening bilateral diffuse airspace disease , US of Lung had many B lines differential diagnosis alveolar consolidation vs alveolar edema , no significant bilateral pleural effusion , diuresis didnt improve her V /Q mismatch patient she cannot be breathing like this she requested intubation , PE is unlikely , patient was intubated during intubation lot of thick yellow secretions samples sent , to broaden the coverage of antibiotics . Initially after intubation with lot of ventilator dysynchrony causing hypoxia and increased bronchospams needed to paralyze her , If the sputum culture is not growing anything will do bronchoscopy with BAL . Will start on diuresis Cardiac : On minimal vasopressor most likely due to heavy sedation will wean down vasopressors Nutrition/GI: Patient to be started on tube feeds, PPI prophylaxis Renal : Labs reviewed Heme onc : No acute issues ID : Worsening air space disease despite diuresis more likely due to alveolar consolidation will continue broad sectrum antibiotics Musculo skeletal / skin issues : No acute issues Disposition : Remain critically ill Code status: Full Code Family/POA: Daughter , Mother . Spent 50 minutes of critical time in maintaining vital organ function and preventing further vital organ decline.
[2017-04-14] MEDS: Furosemide 40 MG/4 ML VIAL IVP SCH ×2 (09:35→19:51)
[2017-04-14] MEDS: Pantoprazole 40 MG VIAL IVPB SCH (09:35)
[2017-04-14] MEDS: Levofloxacin 750 MG/150 ML 750 MG/150 ML BAG IVPB SCH (09:35)
[2017-04-14] MEDS: Vancomycin 1,250 MG in D5% in Water 250 ML IVPB SCH (09:56)
[2017-04-14 10:19] LABS: INR 1.4; Prothrombin Time 15.4 Seconds (9.4-12.1)
[2017-04-14] MEDS ORDERED: *HR* Vecuronium 10 MG VIAL ONE (12:29)
[2017-04-14 12:55] LABS: ABG Base Excess 0 mEq/L (-2 to 3); ABG HCO3 30 mEq/L (21-27); ABG Oxygen Saturation 99 % (95-98); ABG PCO2 76 mmHg (35-45); ABG PO2 169 mmHg (85-104); ABG TCO2 32 mEq/L (20-26); Blood Gas Modality VC; Blood Gas PEEP 10 cm H2O; Blood Gas Respiration Rate 18; Blood Gas VT 350 cc
--- NOTE | 2017-04-14 13:05 | Procedure Note ---
<Kaz Simon Caio - Last Filed: 04/14/17 14:31> Date of procedure: 04/14/17 Pre-op diagnosis: acute respiratory distress Post-op diagnosis: same Procedure: Endotracheal intubation Date: 04/14/2017 Time: 1100 Indication: Respiratory Distress Resident: Kaz Simon Attending: Elie Mijares A time-out was completed verifying correct patient, procedure, site, positioning , and special equipment if applicable. The patient was placed in a flat position. Sedation was obtained using Versed 3mg, and additionally with Etomidate 20mg. The patient was easily ventilated using an ambu bag. The [employer]/ MAC 4 BLADE was used and inserted into the oropharynx at which time there was a Grade 1 view of the vocal cords. A 7.5-dutch endotracheal tube was inserted and visualized going through the vocal cords. The stylette was removed. Colorimetric change was visualized on the CO2 meter. Breath sounds were heard in both lung [place] equally. The endotracheal tube was placed at 23 cm, measured at the teeth. Elie Mijares MD attending physician was present for the entire procedure. A chest x-ray was ordered to assess for pneumothorax and verify endotrachealtube placement. Estimated Blood Loss: 0ml The patient tolerated the procedure well and there were no complications. Pathology: none sent Condition: critical Disposition: no change <Elie Mijares - Last Filed: 04/14/17 19:14> Procedure: I was present for the entire procedure was uneventful.
[2017-04-14] MEDS: Vecuronium 50 MG in 0.9 % Sodium Chloride 150 ML IVC SCH (13:10)
--- NOTE | 2017-04-14 13:14 | Cardiology Progress Note ---
Date of Encounter: 04/14/17 Time of Encounter: 10:00 Assessment and Plan (1) Acute respiratory failure Current Visit: No Status: Acute Etiology of acute respiratory failure appears secondary to presentation of sepsis and concern for developing pneumonia. Presentation of worsening dyspnea and metabolic derangements are not consistent with diastolic heart failure alone. Echo returned with normal LV systolic function, mild diastolic dysfunction and normal RV function. Recommend diuresis per primary team. Troponins x4 were flat and adynamic. A fifth troponin was checked resulting at 0.15. At this time, can consider repeat to follow downtrend. Of note, she is on heparin out of concern for possibility of PE. Qualifiers: Respiratory failure complication: hypoxia and hypercapnia Qualified Code(s) : J96.01 - Acute respiratory failure with hypoxia; J96.02 - Acute respiratory failure with hypercapnia Discussion w patient/family: The assessment and plan as outlined above was discussed with the patient and/or family members who expressed understanding and agreement. All questions were answered. Thank you for involving us in the care of your patient. Please call with any questions. Subjective Principal diagnosis: Acute respiratory failure/sepsis/pna Interval history: Patient continues to be tachypneic, requiring BIPAP. She feels fatigued from breathing. She reports feeling cold chills overnight. Denies chest pain. Objective Vital Signs, Last 4 Hours Temp Pulse Resp BP Pulse Ox 04/14/17 11:00 93 50 103/25 90 04/14/17 10:25 97.2 F L 04/14/17 10:00 105 41 80/34 90 General: Other (mild distress - tachypnea) HEENT: Atraumatic, Other (mucus membranes not evaluated - patient on BIPAP) Cardiac: Reg Rate and Rhythm, Other (no apparent murmur - auscultation limited by breath sounds) Lungs: Other (diminished, shallow breath sounds) Neuro: Alert and responsive, No focal deficits noted Abdomen: Soft, Other (bowel sounds present) Extremities: Other (trivial bilateral LE edema) Results 04/14/17 04:55 04/14/17 09:58 Lab Results 04/13/17 04/13/17 04/13/17 21:04 21:04 21:04 WBC 14.7 H Hgb 10.6 L Hct 32.8 L Plt Count 282 INR APTT Sodium 139 Potassium 3.0 L Chloride 97 L Carbon Dioxide 25 BUN 19 Creatinine 1.12 H Glucose 212 H Calcium 8.7 Magnesium 1.3 L Total Bilirubin 0.4 AST 27 ALT 22 Alkaline Phosphatase 259 H Troponin I 0.15 H* 04/13/17 04/14/17 04/14/17 22:36 04:55 04:55 WBC 12.5 H Hgb 9.9 L Hct 30.4 L Plt Count 266 INR APTT 193.6 H* Sodium 139 Potassium 3.3 L Chloride 100 Carbon Dioxide 26 BUN 19 Creatinine 0.90 Glucose 126 H Calcium 8.7 Magnesium 1.4 L Total Bilirubin AST ALT Alkaline Phosphatase Troponin I 04/14/17 04/14/17 06:41 09:58 WBC Hgb Hct Plt Count INR 1.4 APTT 124.6 H* Sodium Potassium 3.5 Chloride Carbon Dioxide BUN Creatinine Glucose Calcium Magnesium Total Bilirubin AST ALT Alkaline Phosphatase Troponin I - Imaging and Cardiology Chest Xray: report reviewed Echo: report reviewed - EKG Interpretation EKG results cardiology: other (24h telemetry demonstrated average HR 93 bpm, no concerning dysrhythmia) Consult Discharge Plan - Plan Referrals: Iman Monae, MISCELLANEOUS MACHINE OPERATOR [Primary Care Provider] -
[2017-04-14] MEDS: Norepinephrine 4 MG in D5% in Water 250 ML IVC SCH (13:32)
[2017-04-14] MEDS ORDERED: Acetaminophen 650 MG RECTAL SUPP RC PRN (14:09)
--- NOTE | 2017-04-14 14:35 | Procedure Note ---
<Kaz Simon - Last Filed: 04/14/17 14:32> Date of procedure: 04/14/17 Pre-op diagnosis: Acute respiratory distress, hemodynamic instability Post-op diagnosis: same Procedure: Central Venous Catheter Placement Date: 04/14/2017 Time: 1130 Indication: Hemodynamic monitoring/Intravenous access Resident: Kaz Simon Attending: Elie Mijares MD A time-out was completed verifying correct patient, procedure, site, positioning , and special equipment if applicable. The patient was placed in a dependent position appropriate for central line placement based on the vein to be cannulated. The patients Left groin was prepped and draped in sterile fashion. 1 % Lidocaine was used to anesthetize the surrounding skin area. A triple lumen 7- Wolof Cordis catheter was introduced into the the common femoral vein using the Seldinger technique and under ultrasound guidance. The catheter was threaded smoothly over the guide wire and appropriate blood return was obtained. Each lumen of the catheter was evacuated of air and flushed with sterile saline. The catheter was then sutured in place to the skin and a sterile dressing applied. Perfusion to the extremity distal to the point of catheter insertion was checked and found to be adequate. Elie Mijares MD was present for the entire procedure. Estimated Blood Loss: 5ml The patient tolerated the procedure well and there were no complications. Pathology: none sent Condition: critical Disposition: no change <Elie Mijares - Last Filed: 04/14/17 19:16> Procedure: Due to therapeutic PTT we chose cannulate the left femoral vein instead of IJ
[2017-04-14] MEDS: FentaNYL (PF) 1,000 MCG in 0.9 % Sodium Chloride 80 ML IVC SCH (15:45)
[2017-04-14] MEDS ORDERED: Cefepime HCl 2,000 MG in D5% in Water (Mini-Bag+) 100 ML IVPB SCH (16:00)
[2017-04-14 16:08] LABS: ABG Base Excess 3 mEq/L (-2 to 3); ABG HCO3 27 mEq/L (21-27); ABG Oxygen Saturation 99 % (95-98); ABG PCO2 42 mmHg (35-45); ABG PH 7.42 pH Units (7.32-7.45); ABG PO2 136 mmHg (85-104); ABG TCO2 29 mEq/L (20-26); Blood Gas Modality VC; Blood Gas PEEP 10 cm H2O; Blood Gas Respiration Rate 20; Blood Gas VT 450 cc
--- NOTE | 2017-04-14 17:25 | Electrocardiograph Report ---
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
--- NOTE | 2017-04-14 17:26 | Electrocardiograph Report ---
[address] [place], [place] [address] Test Date: 2017-04-12 Pat Name: Angela Montoya Department: 104 Room: 08 Gender: F Director Online Marketing: VIKY : 1960 Requested By: Porter Valdivia Order Number: [id number] Reading MD: Nestor Miller Measurements Intervals [place] Rate: 109 P: 14 DC: 129 QRS: 23 QRSD: 96 T: 60 QT: 394 QTc: 458 Interpretive Statements SINUS TACHYCARDIA LOW QRS VOLTAGE IN PRECORDIAL LEADS POSSIBLE RIGHT VENTRICULAR CONDUCTION DELAY ST DEVIATION AND MODERATE T-WAVE ABNORMALITY, CONSIDER ANTEROLATERAL ISCHEMIA Electronically Signed On 04-14-2017 17:24:29 EST by Nestor Miller
[2017-04-14] MEDS: Cefepime HCl 2,000 MG in Water for inj. (sterile) 20 ML 20 ML IVP SCH (17:47)
[2017-04-14] MEDS: Chlorhexidine Rinse 15 ML MOUTHWASH MM SCH (19:51)
[2017-04-14] MEDS: *HR* Metoprolol 5 MG/5 ML VIAL IVP SCH (19:51)
[2017-04-14] MEDS: *HR* Heparin 5,000 UNIT/ML VIAL SQ SCH (23:19)
[2017-04-14] MEDS: MethylPREDNISolone 40 MG/ML VIAL IVP SCH (23:19)
[2017-04-15] MEDS: Ipratropium/Albuterol Neb 3 ML IH SCH ×7 (00:19→23:39)
[2017-04-15] MEDS: Vecuronium 50 MG in 0.9 % Sodium Chloride 150 ML IVC SCH ×2 (00:55→20:29)
[2017-04-15] MEDS: Vancomycin 750 MG in D5% in Water 250 ML IVPB SCH ×2 (01:12→12:36)
[2017-04-15] MEDS: Cefepime HCl 2,000 MG in Water for inj. (sterile) 20 ML 20 ML IVP SCH ×3 (02:34→18:35)
[2017-04-15 03:53] LABS: ABG Base Excess 2 mEq/L (-2 to 3); ABG HCO3 29 mEq/L (21-27); ABG Oxygen Saturation 61 % (95-98); ABG PCO2 59 mmHg (35-45); ABG PO2 36 mmHg (85-104); ABG TCO2 31 mEq/L (20-26); Blood Gas Modality VC; Blood Gas PEEP 5 cm H2O; Blood Gas Respiration Rate 20; Blood Gas VT 380 cc
[2017-04-15 04:57] LABS: BUN/Creatinine Ratio 23 (6-26); Blood Urea Nitrogen 26 mg/dL (7-20); Calcium 8.8 mg/dL (8.6-10.8); Carbon Dioxide 25 mEq/L (19-29); Chloride 97 mEq/L (98-109); Glucose 176 mg/dL (70-99); Magnesium 2.2 mg/dL (1.6-2.6); Osmolality,Calculated 291 (280-300); Potassium 3.4 mEq/L (3.5-4.5); Sodium 136 mEq/L (136-145); eGFR For African Americans > 60 (> 60); eGFR For Non-African Americans 50 (> 60)
[2017-04-15 05:05] LABS: Basophils % 0.1 %; Eosinophils % 0.3 %; Hematocrit 31.5 % (35.3-44.9); Immature Granulocytes % 0.5 % (0-4); Lymphocytes # 0.3 K/mcL (0.6-4.6); Lymphocytes % 2.9 %; Mean Corpuscular HGB Conc 31.7 g/dL (31.6-35.5); Mean Corpuscular Hemoglobin 29.3 pg (28.0-33.3); Mean Corpuscular Volume 92.4 fL (83.0-100.0); Mean Platelet Volume 9.8 fL (9.4-12.4); Monocytes # 0.2 K/mcL (0.0-1.3); Monocytes % 1.6 %; Neutrophils # 9.8 K/mcL (1.6-8.9); Platelet Count 205 K/mcL (140-400); Red Blood Count 3.41 M/mcL (3.82-4.97); Red Cell Distribution Width 14.9 % (11.5-14.5); Segmented Neutrophils % 94.6 %
[2017-04-15] MEDS ORDERED: Potassium Chloride 40 MEQ/200 ML BAG IVPB ONE (05:12)
[2017-04-15 06:14] LABS: ABG Base Excess 2 mEq/L (-2 to 3); ABG HCO3 29 mEq/L (21-27); ABG Oxygen Saturation 98 % (95-98); ABG PCO2 58 mmHg (35-45); ABG PO2 126 mmHg (85-104); ABG TCO2 31 mEq/L (20-26); Blood Gas Modality VC; Blood Gas Respiration Rate 2; Blood Gas VT 380 cc
[2017-04-15] MEDS: *HR* Heparin 5,000 UNIT/ML VIAL SQ SCH ×3 (06:31→20:38)
[2017-04-15] MEDS ORDERED: Aminoglycoside Consult 1 EACH MC ONE (08:30)
[2017-04-15] MEDS: FentaNYL (PF) 1,000 MCG in 0.9 % Sodium Chloride 80 ML IVC SCH (08:31)
--- NOTE | 2017-04-15 08:49 | Pulmonology Progress Note ---
<Marcus Antoine - Last Filed: 04/15/17 12:59> Date of Encounter: 04/15/17 Time of Encounter: 07:45 Assessment and Plan (1) Acute respiratory failure with hypoxia and hypercapnia Current Visit: Yes Status: Acute Likely secondary to PNA and pulmonary edema Patient required intubation and mechanical ventilation due to increased work of breathing and risk of respiratory fatigue. Latest ABG post Vent pH 7.3/ CO2 58/ O2 126/ Bicarb 29/ o2% 98/ BE 2 Latest CXR showed improvement of interstitial markings, consolidation Echo: EF 55-60%, BBB, mild diastolic Dysfunction Heparin drip stopped for possible thoracentesis but no area of drainable fluid detected on U/S so resumed. Still concern for possible PE but unlikley Portion of patient's respiratory distress due to anxiety. Solumedrol added yesterday. Acuchecks and hypo/hyper glycemic protocols added today extra dose of lasix give today. Plan: Continue mechanical ventilation protocols Continue Levaquin, cefepime, and Vancomycin continue Lasix 40mg BID for diuresis continue steroids continue breathing treatments Continue anxiolytics Titrate Vec as tolerated with hope to remove. Converted or Stopped PO meds due to vent Consider CT tomorrow continue to follow sputum cx results (2) Sepsis Current Visit: Yes Status: Acute Patient met Sepsis criteria on admission due to hypotension, tachypnea, tachycardia, and LA of 3.3 Received Ceftriaxone, and Azithromycin in ED Patient started on Vanc day 4, cefepime day 2, and Levaquin day 4 in the ICU Respiratory viral panel negative including influenza Preliminary BCx are negative. Sputum Cx showing many WBCs, few gram negative diplococci Plan: continue Vanc, cefepime, and Levaquin. continue to monitor vitals consider discontinuing vanc tomorrow Qualifiers: Sepsis type: sepsis due to unspecified organism Qualified Code(s): A41.9 - Sepsis, unspecified organism (3) Pneumonia Current Visit: Yes Status: Acute Patient met Sepsis criteria on admission due to hypotension, tachypnea, tachycardia, and LA of 3.3 Received Ceftriaxone, and Azithromycin in ED Patient started on Vanc day 4, cefepime day 2, and Levaquin day 4 in the ICU Respiratory viral panel negative including influenza Preliminary BCx are negative. Sputum Cx showing many WBCs, few gram negative diplococci Plan: continue Vanc, cefepime and Levaquin. continue to monitor vitals Consider discontinuing vanc tomorrow. Qualifiers: Pneumonia type: due to unspecified organism Laterality: bilateral Lung location: unspecified part of lung Qualified Code(s): J18.9 - Pneumonia, unspecified organism (4) Pulmonary edema Current Visit: Yes Status: Acute Likely secondary to diastolic dysfunction and fluids given in ED Gave extra one time dose of Lasix 40mg IV this morning to assist with diuresis Plan: Continue Lasix 40mg IV BID continue to monitor BUN/Cr. Qualifiers: Chronicity: acute Qualified Code(s): J81.0 - Acute pulmonary edema (5) Elevated troponin Current Visit: Yes Status: Acute Likely secondary to demand ischemia Cardiology is signing off Trops stable, flat, and adynamic x 4 (0.06, 0.07), 5th trop was slightly higher 0.15 Repeat 6th Trop 0.05. Plan: Continue to monitor (6) Electrolyte abnormality Current Visit: Yes Status: Acute Patient was found to be mildly hypoklaemic 3.3 and hypomagnesic 1.4 yesterday Today patient up to K 3.4 and Mg 2.2 s/p repletion of Mag Plan: Continue to monitor recheck this afternoon. Continue to replete as needed (7) Anxiety Current Visit: Yes Status: Acute Pt hx of Anxiety, Depression, Bipolar, and migraines Pt was on numerous psych medications Baclofen, Thorazine, Precedex drip, Zyprexa , Paxil, and Requip Oral medications stopped due to intubation and sedation with fentanyl, propofol , Vec Precedex Drip off Plan: Continue order for Precedex drip hold rest of meds (8) Bipolar disorder Current Visit: No Status: Chronic Holding meds due to intubation Qualifiers: Active/Remission status: remission status unspecified Qualified Code(s): F31.9 - Bipolar disorder, unspecified (9) DVT prophylaxis Current Visit: No Status: Acute Heparin 5,000 Units Q 8H on PPI for GI PPx Subjective Principal diagnosis: Acute respiratory failure/sepsis/pna Interval history: 56 F c PMHx of HTN, anxiety, bipolar, depression, migraine admitted for acute respiratory failure, and sepsis. Patient was intubated yesterday. Patient was titrated overnight. Patient did not tolerate reduction in her peep dropping her oxygenation, but is stable back on her normal peep. Patient off levophed. Resting comfortably hemodynamically stable. Objective PUL Vital signs: Last Vital Signs Temp 96.7 F L 04/15/17 07:27 Pulse 111 04/15/17 07:51 Resp 20 04/15/17 07:00 BP 100/72 04/15/17 07:00 Pulse Ox 93 04/15/17 07:00 General appearance: no acute distress, other (sedated on vent. ) Ventilator Settings Ventilator Settings: Ventilator Settings, Last 8 Hours Ventilator Mode VC+ Ventilator Mode VC+ Ventilator Mode VC+ Ventilator Mode VC+ Ventilator Mode VC+ Ventilator Mode VC+ Ventilator Mode VC+ Ventilator Mode VC+ Ventilator Mode VC+ Ventilator Mode VC+ Ventilator Mode VC+ Ventilator Mode VC+ Ventilator Tidal Volume 380 Setting Ventilator Tidal Volume 380 Setting Ventilator Tidal Volume 380 Setting Ventilator Tidal Volume 380 Setting Ventilator Tidal Volume 380 Setting Ventilator Tidal Volume 380 Setting Ventilator Tidal Volume 380 Setting Ventilator Tidal Volume 380 Setting Ventilator Tidal Volume 380 Setting Ventilator Tidal Volume 380 Setting Ventilator Tidal Volume 380 Setting Ventilator Tidal Volume 380 Setting Ventilator Respiratory Rate 20 Setting Ventilator Respiratory Rate 20 Setting Ventilator Respiratory Rate 20 Setting Ventilator Respiratory Rate 20 Setting Ventilator Respiratory Rate 20 Setting Ventilator Respiratory Rate 20 Setting Ventilator Respiratory Rate 20 Setting Ventilator Respiratory Rate 20 Setting Ventilator Respiratory Rate 20 Setting Ventilator Respiratory Rate 20 Setting Ventilator Respiratory Rate 20 Setting Ventilator Respiratory Rate 20 Setting Actual Respiratory Rate 20 Actual Respiratory Rate 20 Actual Respiratory Rate 20 Actual Respiratory Rate 20 Actual Respiratory Rate 20 Actual Respiratory Rate 20 Actual Respiratory Rate 20 Actual Respiratory Rate 20 Actual Respiratory Rate 20 Positive End Expiratory 10 Pressure Positive End Expiratory 10 Pressure Positive End Expiratory 10 Pressure Positive End Expiratory 5 Pressure Positive End Expiratory 10 Pressure Positive End Expiratory 5 Pressure Positive End Expiratory 5 Pressure Positive End Expiratory 5 Pressure Positive End Expiratory 5 Pressure Positive End Expiratory 5 Pressure Positive End Expiratory 5 Pressure Positive End Expiratory 5 Pressure Peak Inspiratory Airway 39 Pressure Peak Inspiratory Airway 41 Pressure Peak Inspiratory Airway 42 Pressure Peak Inspiratory Airway 42 Pressure Peak Inspiratory Airway 97 Pressure Peak Inspiratory Airway 38 Pressure Peak Inspiratory Airway 38 Pressure Peak Inspiratory Airway 37 Pressure Peak Inspiratory Airway 37 Pressure Results - Laboratory Findings CBC and BMP: 04/15/17 04:27 04/15/17 04:27 ABG ABG pH 7.30 pH Units (7.32-7.45) L 04/15/17 06:08 ABG pCO2 58 mmHg (35-45) H 04/15/17 06:08 ABG pO2 126 mmHg (85-104) H D 04/15/17 06:08 ABG O2 Saturation 98 % (95-98) 04/15/17 06:08 PT/INR, D-dimer PT 15.4 Seconds (9.4-12.1) H 04/14/17 06:41 Abnormal lab findings: Abnormal lab results RBC 3.41 M/mcL (3.82-4.97) L 04/15/17 04:27 Hgb 10.0 g/dL (11.5-15.4) L 04/15/17 04:27 Hct 31.5 % (35.3-44.9) L 04/15/17 04:27 RDW 14.9 % (11.5-14.5) H 04/15/17 04:27 Neutrophils # 9.8 K/mcL (1.6-8.9) H 04/15/17 04:27 Lymphocytes # 0.3 K/mcL (0.6-4.6) L 04/15/17 04:27 PT 15.4 Seconds (9.4-12.1) H 04/14/17 06:41 APTT 124.6 Seconds (26.0-36.0) H* 04/14/17 06:41 Heparin Anti-Xa, Unfract 0.19 IU/mL (0.30-0.70) L 04/14/17 06:41 ABG pH 7.30 pH Units (7.32-7.45) L 04/15/17 06:08 ABG pCO2 58 mmHg (35-45) H 04/15/17 06:08 ABG pO2 126 mmHg (85-104) H D 04/15/17 06:08 ABG HCO3 29 mEq/L (21-27) H 04/15/17 06:08 ABG Total CO2 31 mEq/L (20-26) H 04/15/17 06:08 Potassium 3.4 mEq/L (3.5-4.5) L 04/15/17 04:27 Chloride 97 mEq/L (98-109) L 04/15/17 04:27 BUN 26 mg/dL (7-20) H 04/15/17 04:27 Est GFR (Non-Af Amer) 50 (> 60) L 04/15/17 04:27 Glucose 176 mg/dL (70-99) H 04/15/17 04:27 POC Glucose 151 (58-89) H 04/14/17 22:58 Lactic Acid 3.1 mmol/L (0.5-2.2) H 04/14/17 04:55 Alkaline Phosphatase 259 Units/L (38-126) H 04/13/17 21:04 Troponin I 0.05 ng/mL (0-0.03) H* 04/14/17 16:45 B-Natriuretic Peptide 230 pg/mL (0-100) H 04/13/17 05:37 Albumin 2.4 g/dL (3.5-5.0) L 04/13/17 21:04 Globulin 4.2 g/dL (2.4-3.5) H 04/13/17 21:04 Albumin/Globulin Ratio 0.6 (1.1-2.2) L 04/13/17 21:04 Ur Specific [place] 1.027 (1.010-1.025) H 04/12/17 11:14 Urine Protein 30 mg/dL (Neg-Trace) H 04/12/17 11:14 Urine Bilirubin Small (Negative) H 04/12/17 11:14 Ur Squamous Epith Cells Many per lpf (None-Few) H 04/12/17 11:14 Hyaline Casts Many per lpf (None-Few) H 04/12/17 11:14 - Microbiology Findings Microbiology Findings: Microbiology, Last 48 Hours 04/14/17 12:35 Sputum Culture - Preliminary Sputum - Clinical Findings Intake & Output: Intake & Output 04/14/17 04/15/17 04/15/17 23:59 07:59 15:59 Intake Total 419 / 419 521 / 521 100 / 100 Output Total 600 / 600 200 / 200 Balance -181 / -181 321 / 321 100 / 100 Weight 81.4 kg Consult Discharge Plan - Plan Referrals: Iman Monae, STATE WILDLIFE OFFICER [Primary Care Provider] - <Elie Mijares - Last Filed: 04/15/17 23:03> Date of Encounter: 04/15/17 Objective PUL Vital signs: Last Vital Signs Temp 98.1 F 04/15/17 20:46 Pulse 106 04/15/17 22:00 Resp 20 04/15/17 22:00 BP 105/70 04/15/17 22:00 Pulse Ox 100 04/15/17 22:00 Ventilator Settings Ventilator Settings: Ventilator Settings, Last 8 Hours Ventilator Mode VC+ Ventilator Mode VC+ Ventilator Mode VC+ Ventilator Mode VC+ Ventilator Mode VC+ Ventilator Mode VC+ Ventilator Mode VC+ Ventilator Mode VC+ Ventilator Mode VC+ Ventilator Tidal Volume 380 Setting Ventilator Tidal Volume 380 Setting Ventilator Tidal Volume 380 Setting Ventilator Tidal Volume 380 Setting Ventilator Tidal Volume 380 Setting Ventilator Tidal Volume 380 Setting Ventilator Tidal Volume 380 Setting Ventilator Tidal Volume 380 Setting Ventilator Tidal Volume 380 Setting Ventilator Respiratory Rate 20 Setting Ventilator Respiratory Rate 20 Setting Ventilator Respiratory Rate 20 Setting Ventilator Respiratory Rate 20 Setting Ventilator Respiratory Rate 20 Setting Ventilator Respiratory Rate 20 Setting Ventilator Respiratory Rate 20 Setting Ventilator Respiratory Rate 20 Setting Ventilator Respiratory Rate 20 Setting Actual Respiratory Rate 20 Actual Respiratory Rate 21 Actual Respiratory Rate 20 Actual Respiratory Rate 20 Actual Respiratory Rate 22 Actual Respiratory Rate 20 Actual Respiratory Rate 20 Actual Respiratory Rate 20 Actual Respiratory Rate 20 Positive End Expiratory 10 Pressure Positive End Expiratory 10 Pressure Positive End Expiratory 10 Pressure Positive End Expiratory 10 Pressure Positive End Expiratory 10 Pressure Positive End Expiratory 10 Pressure Positive End Expiratory 10 Pressure Positive End Expiratory 10 Pressure Positive End Expiratory 10 Pressure Peak Inspiratory Airway 39 Pressure Peak Inspiratory Airway 42 Pressure Peak Inspiratory Airway 42 Pressure Peak Inspiratory Airway 42 Pressure Peak Inspiratory Airway 41 Pressure Peak Inspiratory Airway 41 Pressure Peak Inspiratory Airway 40 Pressure Peak Inspiratory Airway 41 Pressure Peak Inspiratory Airway 39 Pressure Results - Laboratory Findings CBC and BMP: 04/15/17 04:27 04/15/17 04:27 ABG ABG pH 7.30 pH Units (7.32-7.45) L 04/15/17 06:08 ABG pCO2 58 mmHg (35-45) H 04/15/17 06:08 ABG pO2 126 mmHg (85-104) H D 04/15/17 06:08 ABG O2 Saturation 98 % (95-98) 04/15/17 06:08 PT/INR, D-dimer PT 15.4 Seconds (9.4-12.1) H 04/14/17 06:41 Abnormal lab findings: Abnormal lab results RBC 3.41 M/mcL (3.82-4.97) L 04/15/17 04:27 Hgb 10.0 g/dL (11.5-15.4) L 04/15/17 04:27 Hct 31.5 % (35.3-44.9) L 04/15/17 04:27 RDW 14.9 % (11.5-14.5) H 04/15/17 04:27 Neutrophils # 9.8 K/mcL (1.6-8.9) H 04/15/17 04:27 Lymphocytes # 0.3 K/mcL (0.6-4.6) L 04/15/17 04:27 PT 15.4 Seconds (9.4-12.1) H 04/14/17 06:41 APTT 124.6 Seconds (26.0-36.0) H* 04/14/17 06:41 Heparin Anti-Xa, Unfract 0.19 IU/mL (0.30-0.70) L 04/14/17 06:41 ABG pH 7.30 pH Units (7.32-7.45) L 04/15/17 06:08 ABG pCO2 58 mmHg (35-45) H 04/15/17 06:08 ABG pO2 126 mmHg (85-104) H D 04/15/17 06:08 ABG HCO3 29 mEq/L (21-27) H 04/15/17 06:08 ABG Total CO2 31 mEq/L (20-26) H 04/15/17 06:08 Potassium 3.4 mEq/L (3.5-4.5) L 04/15/17 04:27 Chloride 97 mEq/L (98-109) L 04/15/17 04:27 BUN 26 mg/dL (7-20) H 04/15/17 04:27 Est GFR (Non-Af Amer) 50 (> 60) L 04/15/17 04:27 Glucose 176 mg/dL (70-99) H 04/15/17 04:27 POC Glucose 151 (58-89) H 04/14/17 22:58 Lactic Acid 3.1 mmol/L (0.5-2.2) H 04/14/17 04:55 Alkaline Phosphatase 259 Units/L (38-126) H 04/13/17 21:04 Troponin I 0.05 ng/mL (0-0.03) H* 04/14/17 16:45 B-Natriuretic Peptide 230 pg/mL (0-100) H 04/13/17 05:37 Albumin 2.4 g/dL (3.5-5.0) L 04/13/17 21:04 Globulin 4.2 g/dL (2.4-3.5) H 04/13/17 21:04 Albumin/Globulin Ratio 0.6 (1.1-2.2) L 04/13/17 21:04 Ur Specific [place] 1.027 (1.010-1.025) H 04/12/17 11:14 Urine Protein 30 mg/dL (Neg-Trace) H 04/12/17 11:14 Urine Bilirubin Small (Negative) H 04/12/17 11:14 Ur Squamous Epith Cells Many per lpf (None-Few) H 04/12/17 11:14 Hyaline Casts Many per lpf (None-Few) H 04/12/17 11:14 - Microbiology Findings Microbiology Findings: Microbiology, Last 48 Hours 04/14/17 12:35 Sputum Culture - Preliminary Sputum - Clinical Findings Intake & Output: Intake & Output 04/15/17 04/15/17 04/15/17 07:59 15:59 23:59 Intake Total 521 / 521 940 / 940 113 / 113 Output Total 200 / 200 700 / 700 125 / 125 Balance 321 / 321 240 / 240 -12 - Attending Attestation I saw the patient with the resident agree with History and Physical exam findings. Labs and Radiology were reviewed Ventilator data were reviewed adjusted FIO2 and Ventilator settings BIOLOGY SPECIMEN TECHNICIAN: Patient is intubated and sedated and paralyzed NECK : No JVD appreciated Pulmonary : Patient has improving bilateral airspace disease fluid overload vs pneumonia will continue diuresis and to continue antibiotics sputum growing gram negative diplococci low tidal volume strategy to continue PEEP , to stop vecuronium . Cardiac : Hemodynamically stable has diastolic dysfunction Nutrition/GI: Patient is on tube feeds, PPI prophylaxis Renal : Labs reviewed Heme onc : No acute issues ID : Air space disease possible pneumonia will continue the broad spectrum antibiotics Musculo skeletal / skin issues : No acute issues Disposition : Remain critically ill Code status: Full Code Family/POA: Daughter , Mother . Spent 35 minutes of critical care time in medical decision making in maintaining vital organ function.
[2017-04-15] MEDS: Pantoprazole 40 MG VIAL IVPB SCH (09:08)
[2017-04-15] MEDS: Furosemide 40 MG/4 ML VIAL IVP SCH ×2 (09:09→20:35)
[2017-04-15] MEDS: *HR* Metoprolol 5 MG/5 ML VIAL IVP SCH ×2 (09:09→20:37)
[2017-04-15] MEDS: Chlorhexidine Rinse 15 ML MOUTHWASH MM SCH ×2 (09:09→20:31)
[2017-04-15] MEDS: MethylPREDNISolone 40 MG/ML VIAL IVP SCH ×3 (09:09→23:25)
[2017-04-15] MEDS ORDERED: Furosemide 40 MG/4 ML VIAL IVP ONE (09:11)
--- NOTE | 2017-04-15 10:04 | Electrocardiograph Report ---
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
--- NOTE | 2017-04-15 10:06 | Event Note ---
Date of Encounter: 04/15/17 Time of Encounter: 10:05 - Cardiology Event Note Troponin resulted at 0.05. Trend of troponin is not indicative of ACS. Suspect demand ischemia in setting of pneumonia. Echo returned with normal LV and RV function. Will sign off. Please call with questions.
[2017-04-15] MEDS: Levofloxacin 750 MG/150 ML 750 MG/150 ML BAG IVPB SCH (10:09)
[2017-04-15] MEDS ORDERED: Lacri-Lube 3.5 GM TUBE BOTH EYES PRN (10:41)
[2017-04-15] MEDS ORDERED: D5% in Water 1,000 ML IVC PRN (10:45)
[2017-04-15] MEDS ORDERED: *HR* Dextrose 50 % in Water (Syg) 50 ML SYRINGE IVP PRN (10:45)
[2017-04-15] MEDS ORDERED: Dextrose Gel 15 GM PO PRN ×2 (10:45)
--- NOTE | 2017-04-15 11:14 | Electrocardiograph Report ---
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
[2017-04-15] MEDS: Norepinephrine 4 MG in D5% in Water 250 ML IVC SCH (11:43)
[2017-04-15] MEDS: Lacri-Lube 3.5 GM TUBE BOTH EYES SCH ×4 (12:36→23:23)
[2017-04-16] MEDS: Vancomycin 750 MG in D5% in Water 250 ML IVPB SCH ×2 (01:34→13:14)
[2017-04-16] MEDS: Cefepime HCl 2,000 MG in Water for inj. (sterile) 20 ML 20 ML IVP SCH ×3 (01:37→17:49)
[2017-04-16] MEDS: Ipratropium/Albuterol Neb 3 ML IH SCH ×6 (03:21→23:39)
[2017-04-16] MEDS: Lacri-Lube 3.5 GM TUBE BOTH EYES SCH ×6 (04:00→23:27)
[2017-04-16 05:17] LABS: Hematocrit 31.3 % (35.3-44.9); Immature Granulocytes % 1.2 % (0-4); Lymphocytes # 0.5 K/mcL (0.6-4.6); Lymphocytes % 3.7 %; Mean Corpuscular HGB Conc 31.9 g/dL (31.6-35.5); Mean Corpuscular Volume 90.7 fL (83.0-100.0); Mean Platelet Volume 9.5 fL (9.4-12.4); Monocytes # 0.6 K/mcL (0.0-1.3); Monocytes % 4.8 %; Neutrophils # 11.7 K/mcL (1.6-8.9); Nucleated Red Blood Cells 0.2 /100 WBC (0); Platelet Count 209 K/mcL (140-400); Red Blood Count 3.45 M/mcL (3.82-4.97); Red Cell Distribution Width 14.6 % (11.5-14.5); Segmented Neutrophils % 90.3 %
[2017-04-16] MEDS: *HR* Heparin 5,000 UNIT/ML VIAL SQ SCH ×3 (05:34→20:25)
[2017-04-16] MEDS: FentaNYL (PF) 1,000 MCG in 0.9 % Sodium Chloride 80 ML IVC SCH ×3 (05:34→23:58)
[2017-04-16 05:39] LABS: BUN/Creatinine Ratio 33 (6-26); Blood Urea Nitrogen 31 mg/dL (6-20); Carbon Dioxide 29 mEq/L (23-29); Chloride 98 mEq/L (98-107); Glucose 189 mg/dL (70-105); Osmolality,Calculated 296 (280-300); Potassium 3.2 mEq/L (3.5-5.1); Sodium 137 mEq/L (136-145); eGFR For African Americans > 60 (> 60); eGFR For Non-African Americans > 60 (> 60)
[2017-04-16] MEDS ORDERED: Potassium Phosphate 44 MEQ in 0.9 % Sodium Chloride 250 ML IVPB PRN (07:24)
[2017-04-16] MEDS: MethylPREDNISolone 40 MG/ML VIAL IVP SCH ×3 (07:29→23:33)
[2017-04-16] MEDS: Chlorhexidine Rinse 15 ML MOUTHWASH MM SCH ×2 (08:10→20:24)
[2017-04-16] MEDS: Furosemide 40 MG/4 ML VIAL IVP ONE (08:10)
[2017-04-16] MEDS: Pantoprazole 40 MG VIAL IVPB SCH (08:10)
[2017-04-16] MEDS: *HR* Metoprolol 5 MG/5 ML VIAL IVP SCH ×2 (08:10→20:41)
[2017-04-16] MEDS: Furosemide 40 MG/4 ML VIAL IVP SCH ×2 (08:11→20:25)
--- NOTE | 2017-04-16 08:36 | Pulmonology Progress Note ---
<TianariadnanikkomollyMarcus - Last Filed: 04/16/17 17:54> Date of Encounter: 04/16/17 Time of Encounter: 08:36 Assessment and Plan (1) Acute respiratory failure with hypoxia and hypercapnia Current Visit: Yes Status: Acute Likely secondary to PNA and pulmonary edema Patient required intubation and mechanical ventilation due to increased work of breathing and risk of respiratory fatigue. Latest ABG post Vent pH 7.36/ CO2 53/ O2 67/ Bicarb 30/ o2% 92/ BE 4 Latest CXR showed improvement of interstitial markings Echo: EF 55-60%, BBB, mild diastolic Dysfunction Portion of patient's respiratory distress due to anxiety. Solumedrol. Acuchecks and hypo/hyper glycemic protocols extra dose of lasix given again today. Plan: Continue mechanical ventilation protocols Continue Levaquin, cefepime continue Lasix 40mg BID for diuresis continue steroids continue breathing treatments Continue anxiolytics CT non con Chest today Remove Vec and increase sedation after CT Converted or Stopped PO meds due to vent will check baseline EKG today for QTC and look to add psych meds back tomorrow after checking 2nd ekg. continue to follow sputum cx results (2) Sepsis Current Visit: Yes Status: Acute Patient met Sepsis criteria on admission due to hypotension, tachypnea, tachycardia, and LA of 3.3 Received Ceftriaxone, and Azithromycin in ED Patient started on Vanc day 5, cefepime day 3, and Levaquin day 5 in the ICU influenza A/B negative Preliminary BCx are negative. Sputum Cx showing many WBCs, few gram negative diplococci, but no growth to date Plan: continue cefepime, and Levaquin. continue to monitor vitals discontinue vanc after today's dose Qualifiers: Sepsis type: sepsis due to unspecified organism Qualified Code(s): A41.9 - Sepsis, unspecified organism (3) Pneumonia Current Visit: Yes Status: Acute Patient met Sepsis criteria on admission due to hypotension, tachypnea, tachycardia, and LA of 3.3 Received Ceftriaxone, and Azithromycin in ED Patient started on Vanc day 5, cefepime day 3, and Levaquin day 5 in the ICU influenza A/B negative Preliminary BCx are negative. Sputum Cx showing many WBCs, few gram negative diplococci, but no growth to date Plan: continue cefepime and Levaquin. continue to monitor vitals Discontinue Vanc after today's dose. Qualifiers: Pneumonia type: due to unspecified organism Laterality: bilateral Lung location: unspecified part of lung Qualified Code(s): J18.9 - Pneumonia, unspecified organism (4) Pulmonary edema Current Visit: Yes Status: Acute Likely secondary to diastolic dysfunction and fluids given in ED Gave extra one time dose of Lasix 40mg IV again this morning to assist with diuresis Plan: Continue Lasix 40mg IV BID continue to monitor BUN/Cr. Qualifiers: Chronicity: acute Qualified Code(s): J81.0 - Acute pulmonary edema (5) Elevated troponin Current Visit: Yes Status: Acute Likely secondary to demand ischemia Cardiology is signed off Trops stable, flat, and adynamic x 4 (0.06, 0.07), 5th trop was slightly higher 0.15 Repeat 6th Trop 0.05. (6) Electrolyte abnormality Current Visit: Yes Status: Acute Pt on electrolyte protocol Today patient K 3.2 and Mg 2.1 Plan: Continue to monitor Continue to replete as needed (7) Anxiety Current Visit: Yes Status: Acute Pt hx of Anxiety, Depression, Bipolar, and migraines Pt was on numerous psych medications Baclofen, Thorazine, Precedex drip, Zyprexa , Paxil, and Requip Oral medications stopped due to intubation and sedation with fentanyl, propofol , Vec Precedex Drip off Plan: Continue order for Precedex drip hold rest of meds Added Seroquel 25mg QHS Checking EKG and will add back home psych meds tomorrow assuming QTC allows (8) Bipolar disorder Current Visit: No Status: Chronic Holding meds due to intubation Checking EKG and will add back home psych meds tomorrow assuming QTC allows Qualifiers: Active/Remission status: remission status unspecified Qualified Code(s): F31.9 - Bipolar disorder, unspecified (9) DVT prophylaxis Current Visit: No Status: Acute Heparin 5,000 Units Q 8H on PPI for GI PPx Subjective Principal diagnosis: Acute respiratory failure/sepsis/pna Interval history: 56 F c PMHx of HTN, anxiety, bipolar, depression, migraine admitted for acute respiratory failure, and sepsis. Patient resting comfortably. Patient has continued to be able to wean down on FIO2. Pt to get CT non contrast today. To stop Vec today after CT. To stop Vanc today. Pt on Day 5 Vanc, Day 5 levoquin, Day 3 Cefepime. Objective PUL Vital signs: Last Vital Signs Temp 98.9 F 04/16/17 07:57 Pulse 128 04/16/17 08:00 Resp 21 04/16/17 08:00 BP 121/55 04/16/17 08:00 Pulse Ox 90 04/16/17 08:00 General appearance: no acute distress, other (Sedated) Effort: normal Auscultation: bilateral: other (Crackles, improved) Cardiovascular: regular rate and rhythm Gastrointestinal: soft, non-distended other (Sedated) Ventilator Settings Ventilator Settings: Ventilator Settings, Last 8 Hours Ventilator Mode VC+ Ventilator Mode VC+ Ventilator Mode VC+ Ventilator Mode VC+ Ventilator Mode VC+ Ventilator Mode VC+ Ventilator Mode VC+ Ventilator Mode VC+ Ventilator Mode VC+ Ventilator Mode VC+ Ventilator Mode VC+ Ventilator Tidal Volume 380 Setting Ventilator Tidal Volume 380 Setting Ventilator Tidal Volume 380 Setting Ventilator Tidal Volume 380 Setting Ventilator Tidal Volume 380 Setting Ventilator Tidal Volume 380 Setting Ventilator Tidal Volume 380 Setting Ventilator Tidal Volume 380 Setting Ventilator Tidal Volume 380 Setting Ventilator Tidal Volume 380 Setting Ventilator Tidal Volume 380 Setting Ventilator Respiratory Rate 20 Setting Ventilator Respiratory Rate 20 Setting Ventilator Respiratory Rate 20 Setting Ventilator Respiratory Rate 20 Setting Ventilator Respiratory Rate 20 Setting Ventilator Respiratory Rate 20 Setting Ventilator Respiratory Rate 20 Setting Ventilator Respiratory Rate 20 Setting Ventilator Respiratory Rate 20 Setting Ventilator Respiratory Rate 20 Setting Ventilator Respiratory Rate 20 Setting Actual Respiratory Rate 23 Actual Respiratory Rate 21 Actual Respiratory Rate 20 Actual Respiratory Rate 22 Actual Respiratory Rate 23 Actual Respiratory Rate 24 Actual Respiratory Rate 23 Actual Respiratory Rate 21 Actual Respiratory Rate 23 Actual Respiratory Rate 21 Actual Respiratory Rate 22 Positive End Expiratory 10 Pressure Positive End Expiratory 10 Pressure Positive End Expiratory 10 Pressure Positive End Expiratory 10 Pressure Positive End Expiratory 10 Pressure Positive End Expiratory 10 Pressure Positive End Expiratory 10 Pressure Positive End Expiratory 10 Pressure Positive End Expiratory 10 Pressure Positive End Expiratory 10 Pressure Peak Inspiratory Airway 38 Pressure Peak Inspiratory Airway 37 Pressure Peak Inspiratory Airway 36 Pressure Peak Inspiratory Airway 37 Pressure Peak Inspiratory Airway 36 Pressure Peak Inspiratory Airway 36 Pressure Peak Inspiratory Airway 38 Pressure Peak Inspiratory Airway 38 Pressure Peak Inspiratory Airway 36 Pressure Peak Inspiratory Airway 37 Pressure Peak Inspiratory Airway 37 Pressure Results - Laboratory Findings CBC and BMP: 04/16/17 05:00 04/16/17 05:00 ABG ABG pH 7.30 pH Units (7.32-7.45) L 04/15/17 06:08 ABG pCO2 58 mmHg (35-45) H 04/15/17 06:08 ABG pO2 126 mmHg (85-104) H D 04/15/17 06:08 ABG O2 Saturation 98 % (95-98) 04/15/17 06:08 PT/INR, D-dimer PT 15.4 Seconds (9.4-12.1) H 04/14/17 06:41 Abnormal lab findings: Abnormal lab results WBC 13.0 K/mcL (4.3-11.1) H 04/16/17 05:00 RBC 3.45 M/mcL (3.82-4.97) L 04/16/17 05:00 Hgb 10.0 g/dL (11.5-15.4) L 04/16/17 05:00 Hct 31.3 % (35.3-44.9) L 04/16/17 05:00 RDW 14.6 % (11.5-14.5) H 04/16/17 05:00 Neutrophils # 11.7 K/mcL (1.6-8.9) H 04/16/17 05:00 Lymphocytes # 0.5 K/mcL (0.6-4.6) L 04/16/17 05:00 Nucleated RBCs/100 WBC 0.2 /100 WBC (0) H 04/16/17 05:00 PT 15.4 Seconds (9.4-12.1) H 04/14/17 06:41 APTT 124.6 Seconds (26.0-36.0) H* 04/14/17 06:41 Heparin Anti-Xa, Unfract 0.19 IU/mL (0.30-0.70) L 04/14/17 06:41 ABG pH 7.30 pH Units (7.32-7.45) L 04/15/17 06:08 ABG pCO2 58 mmHg (35-45) H 04/15/17 06:08 ABG pO2 126 mmHg (85-104) H D 04/15/17 06:08 ABG HCO3 29 mEq/L (21-27) H 04/15/17 06:08 ABG Total CO2 31 mEq/L (20-26) H 04/15/17 06:08 Potassium 3.2 mEq/L (3.5-5.1) L 04/16/17 05:00 BUN 31 mg/dL (6-20) H 04/16/17 05:00 BUN/Creatinine Ratio 33 (6-26) H 04/16/17 05:00 Glucose 189 mg/dL (70-105) H 04/16/17 05:00 POC Glucose 175 (58-89) H 04/15/17 23:42 Lactic Acid 3.1 mmol/L (0.5-2.2) H 04/14/17 04:55 Alkaline Phosphatase 259 Units/L (38-126) H 04/13/17 21:04 Troponin I 0.05 ng/mL (0-0.03) H* 04/14/17 16:45 B-Natriuretic Peptide 230 pg/mL (0-100) H 04/13/17 05:37 Albumin 2.4 g/dL (3.5-5.0) L 04/13/17 21:04 Globulin 4.2 g/dL (2.4-3.5) H 04/13/17 21:04 Albumin/Globulin Ratio 0.6 (1.1-2.2) L 04/13/17 21:04 Ur Specific [place] 1.027 (1.010-1.025) H 04/12/17 11:14 Urine Protein 30 mg/dL (Neg-Trace) H 04/12/17 11:14 Urine Bilirubin Small (Negative) H 04/12/17 11:14 Ur Squamous Epith Cells Many per lpf (None-Few) H 04/12/17 11:14 Hyaline Casts Many per lpf (None-Few) H 04/12/17 11:14 - Microbiology Findings Microbiology Findings: Microbiology, Last 48 Hours 04/14/17 12:35 Sputum Culture - Preliminary Sputum - Clinical Findings Intake & Output: Intake & Output 04/15/17 04/16/17 04/16/17 23:59 07:59 15:59 Intake Total 213 / 213 494 / 494 Output Total 125 / 125 1325 / 1325 125 / 125 Balance 88 / 88 -831 / -831 -105 / -105 Weight 82.1 kg Consult Discharge Plan - Plan Referrals: Iman Monae, [employer] [Primary Care Provider] - <Elie Mijares - Last Filed: 04/16/17 21:58> Date of Encounter: 04/16/17 Objective PUL Vital signs: Last Vital Signs Temp 98.0 F 04/16/17 20:47 Pulse 85 04/16/17 18:06 Resp 20 04/16/17 21:09 BP 83/53 04/16/17 18:06 Pulse Ox 98 04/16/17 21:09 Ventilator Settings Ventilator Settings: Ventilator Settings, Last 8 Hours Ventilator Mode VC+ Ventilator Mode VC+ Ventilator Mode VC+ Ventilator Mode VC+ Ventilator Mode VC+ Ventilator Tidal Volume 380 Setting Ventilator Tidal Volume 380 Setting Ventilator Tidal Volume 380 Setting Ventilator Tidal Volume 380 Setting Ventilator Tidal Volume 380 Setting Ventilator Respiratory Rate 20 Setting Ventilator Respiratory Rate 20 Setting Ventilator Respiratory Rate 20 Setting Ventilator Respiratory Rate 20 Setting Ventilator Respiratory Rate 20 Setting Actual Respiratory Rate 20 Actual Respiratory Rate 20 Actual Respiratory Rate 20 Actual Respiratory Rate 20 Actual Respiratory Rate 20 Positive End Expiratory 10 Pressure Positive End Expiratory 8 Pressure Positive End Expiratory 8 Pressure Positive End Expiratory 8 Pressure Positive End Expiratory 8 Pressure Peak Inspiratory Airway 35 Pressure Peak Inspiratory Airway 38 Pressure Peak Inspiratory Airway 33 Pressure Peak Inspiratory Airway 34 Pressure Peak Inspiratory Airway 35 Pressure Results - Laboratory Findings CBC and BMP: 04/16/17 05:00 04/16/17 18:18 ABG ABG pH 7.36 pH Units (7.32-7.45) 04/16/17 08:37 ABG pCO2 53 mmHg (35-45) H 04/16/17 08:37 ABG pO2 67 mmHg (85-104) L 04/16/17 08:37 ABG O2 Saturation 92 % (95-98) L 04/16/17 08:37 PT/INR, D-dimer PT 15.4 Seconds (9.4-12.1) H 04/14/17 06:41 Abnormal lab findings: Abnormal lab results WBC 13.0 K/mcL (4.3-11.1) H 04/16/17 05:00 RBC 3.45 M/mcL (3.82-4.97) L 04/16/17 05:00 Hgb 10.0 g/dL (11.5-15.4) L 04/16/17 05:00 Hct 31.3 % (35.3-44.9) L 04/16/17 05:00 RDW 14.6 % (11.5-14.5) H 04/16/17 05:00 Neutrophils # 11.7 K/mcL (1.6-8.9) H 04/16/17 05:00 Lymphocytes # 0.5 K/mcL (0.6-4.6) L 04/16/17 05:00 Nucleated RBCs/100 WBC 0.2 /100 WBC (0) H 04/16/17 05:00 PT 15.4 Seconds (9.4-12.1) H 04/14/17 06:41 APTT 124.6 Seconds (26.0-36.0) H* 04/14/17 06:41 Heparin Anti-Xa, Unfract 0.19 IU/mL (0.30-0.70) L 04/14/17 06:41 ABG pCO2 53 mmHg (35-45) H 04/16/17 08:37 ABG pO2 67 mmHg (85-104) L 04/16/17 08:37 ABG HCO3 30 mEq/L (21-27) H 04/16/17 08:37 ABG Total CO2 32 mEq/L (20-26) H 04/16/17 08:37 ABG O2 Saturation 92 % (95-98) L 04/16/17 08:37 ABG Base Excess 4 mEq/L (-2 to 3) H 04/16/17 08:37 VBG pCO2 55 mmHg (41-51) H 04/16/17 08:48 VBG pO2 138 mmHg (25-50) H 04/16/17 08:48 VBG HCO3 31 mEq/L (21-27) H 04/16/17 08:48 BUN 31 mg/dL (6-20) H 04/16/17 05:00 BUN/Creatinine Ratio 33 (6-26) H 04/16/17 05:00 Glucose 189 mg/dL (70-105) H 04/16/17 05:00 POC Glucose 175 (58-89) H 04/15/17 23:42 Lactic Acid 3.1 mmol/L (0.5-2.2) H 04/14/17 04:55 Venous Ioniz Calcium 1.13 mmol/L (1.15-1.35) L 04/16/17 08:48 Alkaline Phosphatase 259 Units/L (38-126) H 04/13/17 21:04 Troponin I 0.05 ng/mL (0-0.03) H* 04/14/17 16:45 B-Natriuretic Peptide 230 pg/mL (0-100) H 04/13/17 05:37 Albumin 2.4 g/dL (3.5-5.0) L 04/13/17 21:04 Globulin 4.2 g/dL (2.4-3.5) H 04/13/17 21:04 Albumin/Globulin Ratio 0.6 (1.1-2.2) L 04/13/17 21:04 Ur Specific [place] 1.027 (1.010-1.025) H 04/12/17 11:14 Urine Protein 30 mg/dL (Neg-Trace) H 04/12/17 11:14 Urine Bilirubin Small (Negative) H 04/12/17 11:14 Ur Squamous Epith Cells Many per lpf (None-Few) H 04/12/17 11:14 Hyaline Casts Many per lpf (None-Few) H 04/12/17 11:14 - Microbiology Findings Microbiology Findings: Microbiology, Last 48 Hours 04/14/17 12:35 Sputum Culture - Final Sputum - Clinical Findings Intake & Output: Intake & Output 04/16/17 04/16/17 04/16/17 07:59 15:59 23:59 Intake Total 494 / 494 758 / 758 200 / 200 Output Total 1325 / 1325 625 / 625 275 / 275 Balance -831 / -831 133 / 133 -75 / -75 Weight 82.1 kg - Attending Attestation I saw the patient with the resident agree with History and Physical exam findings. 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 NECK : No JVD appreciated ane Pulmonary : Patient still has stiff lung needing PEEP therapy to wean FIO2 as tolerated , CT scan shows diffuse bilateral ground glass opacities with apico basilar gradient can be due to viral pneumonia or atypical pneumonia or it is acute intersitial pneumonitis haman -rich syndrome if the latter is the case patient will have poor pulmonary outcome if she pulls through this illness , if her V/Q mismatch stable will need bronchoscopy with BAL for atypical pneumonia and viral work up . Will continue the steroids . Cardiac : Hemodynaglamically stable has diastolic dysfunction will continue diuresis as tolerated as her blood pressure is borderline Nutrition/GI: Patient is on tube feeds, PPI prophylaxis Renal : Labs reviewed Heme onc : No acute issues ID : Air space disease possible pneumonia will continue the broad spectrum antibiotics Musculo skeletal / skin issues : No acute issues Disposition : Remain critically ill Code status: Full Code Family/POA: Daughter , Mother . Updated about the CT scan findings . Spent 38 minutes of critical care time in medical decision making in maintaining vital organ function and preventing further deterioration.
[2017-04-16 08:40] LABS: ABG Base Excess 4 mEq/L (-2 to 3); ABG HCO3 30 mEq/L (21-27); ABG Oxygen Saturation 92 % (95-98); ABG PCO2 53 mmHg (35-45); ABG PH 7.36 pH Units (7.32-7.45); ABG PO2 67 mmHg (85-104); ABG TCO2 32 mEq/L (20-26); Blood Gas Modality ASSIST CONTROL; Blood Gas PEEP 10 cm H2O; Blood Gas Respiration Rate 20; Blood Gas VT 380 cc
[2017-04-16 08:56] LABS: VBG HCO3 31 mEq/L (21-27); VBG Ionized Calcium 1.13 mmol/L (1.15-1.35); VBG PCO2 55 mmHg (41-51); VBG PH 7.36 pH Units (7.32-7.42); VBG PO2 138 mmHg (25-50)
[2017-04-16] MEDS: Levofloxacin 750 MG/150 ML 750 MG/150 ML BAG IVPB SCH (09:07)
[2017-04-16 09:21] LABS: Magnesium 2.1 mg/dL (1.6-2.6); Phosphorous 2.9 mg/dL (2.7-4.5)
[2017-04-16] MEDS: Norepinephrine 4 MG in D5% in Water 250 ML IVC SCH (10:05)
[2017-04-16] MEDS ORDERED: Dextrose Gel 15 GM PO PRN ×2 (10:48)
[2017-04-16] MEDS ORDERED: *HR* Dextrose 50 % in Water (Syg) 50 ML SYRINGE IVP PRN (10:48)
[2017-04-16] MEDS ORDERED: D5% in Water 1,000 ML IVC PRN (10:48)
[2017-04-16] MEDS: Dexmedetomidine HCl 400 MCG/100 ML MLS IVC SCH ×2 (13:14→19:40)
[2017-04-16] MEDS: Insulin LISPRO 300 UNITS/3 ML VIAL SQ SCH ×3 (13:15→23:36)
[2017-04-16] MEDS: Potassium Chloride 40 MEQ/200 ML BAG IVPB PRN (13:58)
[2017-04-17] MEDS ORDERED: Thiamine (B-1) 100 MG TABLET PO ONE (01:30)
[2017-04-17] MEDS: Cefepime HCl 2,000 MG in Water for inj. (sterile) 20 ML 20 ML IVP SCH ×2 (02:06→09:27)
[2017-04-17] MEDS: Dexmedetomidine HCl 400 MCG/100 ML MLS IVC SCH (02:07)
[2017-04-17] MEDS: Ipratropium/Albuterol Neb 3 ML IH SCH ×2 (04:20→07:55)
[2017-04-17] MEDS: Lacri-Lube 3.5 GM TUBE BOTH EYES SCH ×2 (04:27→07:26)
[2017-04-17 04:54] LABS: ABG Base Excess 11 mEq/L (-2 to 3); ABG HCO3 37 mEq/L (21-27); ABG Oxygen Saturation 93 % (95-98); ABG PCO2 58 mmHg (35-45); ABG PH 7.41 pH Units (7.32-7.45); ABG PO2 69 mmHg (85-104); ABG TCO2 39 mEq/L (20-26); Blood Gas Modality ASSIST CONTROL; Blood Gas PEEP 10 cm H2O; Blood Gas Respiration Rate 20; Blood Gas VT 380 cc
[2017-04-17 04:56] LABS: Basophils % 0.1 %; Hematocrit 31.7 % (35.3-44.9); Hemoglobin 10.3 g/dL (11.5-15.4); Immature Granulocytes % 2.1 % (0-4); Lymphocytes # 0.8 K/mcL (0.6-4.6); Mean Corpuscular HGB Conc 32.5 g/dL (31.6-35.5); Mean Corpuscular Hemoglobin 29.8 pg (28.0-33.3); Mean Corpuscular Volume 91.6 fL (83.0-100.0); Mean Platelet Volume 9.6 fL (9.4-12.4); Monocytes # 0.6 K/mcL (0.0-1.3); Monocytes % 3.7 %; Neutrophils # 13.3 K/mcL (1.6-8.9); Nucleated Red Blood Cells 0.1 /100 WBC (0); Platelet Count 220 K/mcL (140-400); Red Blood Count 3.46 M/mcL (3.82-4.97); Red Cell Distribution Width 14.3 % (11.5-14.5); Segmented Neutrophils % 89.1 %
[2017-04-17 05:14] LABS: BUN/Creatinine Ratio 42 (6-26); Blood Urea Nitrogen 44 mg/dL (6-20); Calcium 8.9 mg/dL (8.6-10.3); Carbon Dioxide 33 mEq/L (23-29); Chloride 98 mEq/L (98-107); Glucose 169 mg/dL (70-105); Magnesium 2.3 mg/dL (1.6-2.6); Osmolality,Calculated 309 (280-300); Phosphorous 3.8 mg/dL (2.7-4.5); Potassium 3.8 mEq/L (3.5-5.1); Sodium 142 mEq/L (136-145); eGFR For African Americans > 60 (> 60); eGFR For Non-African Americans 54 (> 60)
[2017-04-17] MEDS: *HR* Heparin 5,000 UNIT/ML VIAL SQ SCH (06:12)
[2017-04-17] MEDS: Insulin LISPRO 300 UNITS/3 ML VIAL SQ SCH (06:16)
[2017-04-17] MEDS: Potassium Chloride 40 MEQ/200 ML BAG IVPB PRN (06:18)
[2017-04-17] MEDS: FentaNYL (PF) 1,000 MCG in 0.9 % Sodium Chloride 80 ML IVC SCH (06:42)
[2017-04-17] MEDS ORDERED: *HR* Vecuronium 10 MG VIAL ONE (07:04)
[2017-04-17] MEDS: MethylPREDNISolone 40 MG/ML VIAL IVP SCH (07:21)
[2017-04-17] MEDS: Pantoprazole 40 MG VIAL IVPB SCH (07:22)
[2017-04-17] MEDS: Furosemide 40 MG/4 ML VIAL IVP SCH (07:23)
[2017-04-17] MEDS: Chlorhexidine Rinse 15 ML MOUTHWASH MM SCH (07:23)
[2017-04-17] MEDS: *HR* Metoprolol 5 MG/5 ML VIAL IVP SCH (07:24)
[2017-04-17] MEDS: Vecuronium 50 MG in 0.9 % Sodium Chloride 150 ML IVC SCH (07:55)
[2017-04-17] MEDS: Levofloxacin 750 MG/150 ML 750 MG/150 ML BAG IVPB SCH (08:55)
--- NOTE | 2017-04-17 09:00 | Discharge Summary ---
<Kaz Simon - Last Filed: 04/17/17 11:29> Date of Encounter: 04/17/17 Time of Encounter: 09:13 - Discharge Diagnosis (1) ARDS (adult respiratory distress syndrome) Priority: Primary Status: Acute (2) Acute respiratory failure with hypoxia and hypercapnia Priority: Primary Status: Acute (3) Tobacco use disorder Priority: Secondary Status: Chronic (4) Bipolar disorder Priority: Secondary Status: Chronic Qualifiers: Active/Remission status: remission status unspecified Qualified Code(s): F31.9 - Bipolar disorder, unspecified (5) Pneumonia Priority: Primary Status: Acute Qualifiers: Pneumonia type: due to unspecified organism Laterality: bilateral Lung location: unspecified part of lung Qualified Code(s): J18.9 - Pneumonia, unspecified organism (6) Severe sepsis Priority: Primary Status: Acute (7) Anxiety Priority: Secondary Status: Acute (8) Electrolyte abnormality Priority: Primary Status: Acute - Discharge Medications Prescriptions: Cefepime HCl/Dextrose, Iso-Osm [Cefepime 2 gm Injection] 2 gm IV Q8H #2 mls Levofloxacin 750 MG/150 ML [Levaquin Premix 750mg/150 mL] 750 mg IVPB DAILY #1 bag Home Medications: Chlorpromazine HCl 100 mg PO QAM 12/25/16 [History] Chlorpromazine HCl 300 mg PO HS 12/25/16 [History] OLANZapine [Zyprexa] 5 mg PO HS 12/25/16 [History] Paroxetine [Paxil] 60 mg PO DAILY 12/25/16 [History] Calcium Carbonate [Tums] 1,000 mg PO Q4HR PRN 12/27/16 [Rx] Omeprazole [PriLOSEC] 20 mg PO BIDAC #60 cap 12/27/16 [Rx] rOPINIRole [Requip] 0.25 mg PO HS 04/12/17 [History] Cefepime HCl/Dextrose, Iso-Osm [Cefepime 2 gm Injection] 2 gm IV Q8H #2 mls [Rx] Chlorhexidine Rinse 15 ml MM BID mouthwash 04/17/17 [Rx] Furosemide [Lasix] 40 mg IVP BID vial 04/17/17 [Rx] Haloperidol [Haldol] 5 mg PO QID tablet 04/17/17 [Rx] Heparin 5,000 unit SQ Q8HCO vial 04/17/17 [Rx] Ipratropium/Albuterol Neb [Duoneb] 3 ml IH [id number] inhsol 04/17/17 [Rx] Lacri-Lube [Lacri-lube] 1 appl BOTH EYES Q2HR PRN tube 04/17/17 [Rx] Lacri-Lube [Lacri-lube] 1 appl BOTH EYES Q4HR tube 04/17/17 [Rx] Levofloxacin 750 MG/150 ML [Levaquin Premix 750mg/150 mL] 750 mg IVPB DAILY #1 bag 04/17/17 [Rx] Metoprolol [Lopressor] 5 mg IVP BID vial 04/17/17 [Rx] Naloxone [Narcan] 0.4 mg IVP Q2MIN PRN inj 04/17/17 [Rx] Pantoprazole [Protonix] 40 mg IVPB DAILY vial 04/17/17 [Rx] Quetiapine Fumarate [Seroquel] 25 mg PO HS tablet 04/17/17 [Rx] methylPREDNISolone [Solu-MEDROL] 40 mg IVP Q8HR vial 04/17/17 [Rx] Allergies/Adverse Reactions: 3 Allergy/AdvReac Type Severity Reaction Status Date / Time metoclopramide [From Reglan] Allergy Mild Itching Verified 03/22/17 09:27 tramadol Allergy Mild Itching Verified 03/22/17 09:27 amitriptyline Allergy Itching Verified 03/22/17 09:27 codeine Allergy Hives Verified 03/22/17 09:27 Sulfa (Sulfonamide Allergy See Verified 03/22/17 09:27 Antibiotics) Comments sulfamethoxazole Allergy See Verified 03/22/17 09:27 [From Bactrim] Comments trimethoprim [From Bactrim] Allergy See Verified 03/22/17 09:27 Comments lorazepam [From Ativan] AdvReac Mild Anxiety Verified 03/22/17 09:27 benztropine [From Cogentin] AdvReac See Verified 03/22/17 09:27 Comments ciprofloxacin [From Cipro] AdvReac See Verified 03/22/17 09:27 Comments onabotulinumtoxinA AdvReac See Verified 03/22/17 09:27 [From Botox] Comments sertraline [From Zoloft] AdvReac Headache Verified 03/22/17 09:27 sumatriptan [From Imitrex] AdvReac Agitated Verified 03/22/17 09:27 topiramate [From Topamax] AdvReac See Verified 03/22/17 09:27 Comments Labs on day of discharge: Labs from last 24 hours 04/17/17 04/17/17 04/17/17 04:50 04:40 04:40 WBC 14.9 H RBC 3.46 L Hgb 10.3 L Hct 31.7 L MCV 91.6 MCH 29.8 MCHC 32.5 RDW 14.3 Plt Count 220 MPV 9.6 Immature Gran % 2.1 Seg Neutrophils % 89.1 Lymphocytes % 5.0 Monocytes % 3.7 Eosinophils % 0.0 Basophils % 0.1 Neutrophils # 13.3 H Lymphocytes # 0.8 Monocytes # 0.6 Eosinophils # 0.0 Basophils # 0.0 Nucleated RBCs/100 WBC 0.1 H Sample Site R Radial ABG pH 7.41 ABG pCO2 58 H ABG pO2 69 L ABG HCO3 37 H ABG Total CO2 39 H ABG O2 Saturation 93 L ABG Base Excess 11 H Shmuel Test N/A Respiration Rate 20 O2 Delivery Device Adult Vent Blood Gas Modality ASSIST CONTROL Inspired O2 70.0 Tidal Volume 380 PEEP 10 Sodium 142 Potassium 3.8 Chloride 98 Carbon Dioxide 33 H BUN 44 H Creatinine 1.05 Est GFR ( Amer) > 60 Est GFR (Non-Af Amer) 54 L BUN/Creatinine Ratio 42 H Glucose 169 H POC Glucose Calculated Osmolality 309 H Calcium 8.9 Phosphorus 3.8 Magnesium 2.3 04/16/17 04/16/17 04/16/17 23:35 18:18 16:41 WBC RBC Hgb Hct MCV MCH MCHC RDW Plt Count MPV Immature Gran % Seg Neutrophils % Lymphocytes % Monocytes % Eosinophils % Basophils % Neutrophils # Lymphocytes # Monocytes # Eosinophils # Basophils # Nucleated RBCs/100 WBC Sample Site ABG pH ABG pCO2 ABG pO2 ABG HCO3 ABG Total CO2 ABG O2 Saturation ABG Base Excess Shmuel Test Respiration Rate O2 Delivery Device Blood Gas Modality Inspired O2 Tidal Volume PEEP Sodium Potassium 3.9 Chloride Carbon Dioxide BUN Creatinine Est GFR ( Amer) Est GFR (Non-Af Amer) BUN/Creatinine Ratio Glucose POC Glucose 168 H 151 H Calculated Osmolality Calcium Phosphorus Magnesium 04/16/17 05:00 WBC RBC Hgb Hct MCV MCH MCHC RDW Plt Count MPV Immature Gran % Seg Neutrophils % Lymphocytes % Monocytes % Eosinophils % Basophils % Neutrophils # Lymphocytes # Monocytes # Eosinophils # Basophils # Nucleated RBCs/100 WBC Sample Site ABG pH ABG pCO2 ABG pO2 ABG HCO3 ABG Total CO2 ABG O2 Saturation ABG Base Excess Shmuel Test Respiration Rate O2 Delivery Device Blood Gas Modality Inspired O2 Tidal Volume PEEP Sodium Potassium Chloride Carbon Dioxide BUN Creatinine Est GFR ( Amer) Est GFR (Non-Af Amer) BUN/Creatinine Ratio Glucose POC Glucose Calculated Osmolality Calcium Phosphorus 2.9 Magnesium 2.1 - Impressions ITS Impressions Echocardiogram 04/12/17 11:55 Impressions: LVEF 55-60%. Normal LV chamber size, wall thickness and function. Atypical septal motion consistent with bundle branch block. Mild left ventricular diastolic dysfunction. Mildly dilated right ventricle with normal function. No pulmonary hypertension. RVSP not well obtained due to poor TR jet. No significant valvular dysfunction. Left Ventricular Wall Motion: Rest Echo Findings All wall segments showed normal motion. Findings: Study Quality * Technically adequate exam. ECG Findings * Sinus rhythm with BBB. Left Ventricle * LVEF 55-60%. * Normal LV chamber size, wall thickness and function. * Atypical septal motion consistent with bundle branch block. * Mild left ventricular diastolic dysfunction. Right Ventricle * Mildly dilated right ventricle with normal function. Left Atrium * Mildly dilated left atrium. Right Atrium * Normal right atrial size. Aortic Valve * Trileaflet aortic valve with normal function. * No aortic regurgitation. * No aortic stenosis. Mitral Valve * Normal mitral valve structure and function. * No mitral regurgitation. * No mitral stenosis. Tricuspid Valve * Normal tricuspid valve structure and function. * Trace tricuspid regurgitation. * No pulmonary hypertension. RVSP not well obtained due to poor TR jet. Pulmonic Valve * Normal pulmonic valve structure and function. * Trace pulmonic regurgitation. Aorta * Normally sized aortic root. Pericardium * There is a trivial pericardial effusion present. IVC * Normal IVC dimensions and inspiratory collapse. Pulmonary Artery * Normal visualized portions of the main pulmonary artery. Chest X-Ray 04/13/17 11:53 IMPRESSION: Severe acute pulmonary edema which has worsened since yesterday. D/ / Ry Leonard MD / Ry Leonard MD Interpreting Provider: Ry Leonard MD Chest X-Ray 04/13/17 20:54 IMPRESSION: Findings are suggestive of worsening congestive heart failure. Recommend continued radiographic follow-up. Multiple dilated bowel loops within upper abdomen. D/ / Aneudy Gutiérrez MD / Aneudy Gutiérrez MD Interpreting Provider: Aneudy Gutiérrez MD Chest X-Ray 04/14/17 06:00 IMPRESSION: 1. Unchanged asymmetric left lung airspace opacity appearing to represent pneumonia given air bronchograms. Severe asymmetric alveolar edema could appear similar. 2. Diffuse interstitial opacities bilaterally, potentially pneumonia or edema. 3. Mild to moderate cardiomegaly. 4. Suspected bilateral effusions. D/ / Lester Pride MD / Lester Pride MD Interpreting Provider: Lester Pride MD X-Ray 04/14/17 11:02 IMPRESSION: NG tube side hole in the region of the gastric body and tip in the region of the gastric antrum. D/ / 04/14/2017 15:02:21 [facility] Inter[facility] Provider: Lester Srivastava MD Chest X-Ray 04/14/17 12:51 IMPRESSION: Endotracheal tube tip in the right mainstem bronchus proximally. This should be withdrawn several cm. Otherwise, stable chest demonstrating bilateral diffuse airspace disease. NG tube courses into the abdomen. The findings were sent to the Radiology Results Communication Center at 2:04 pm on 04/14/2017to be communicated to a licensed caregiver. D/ / 04/14/2017 14:35:37 Lester Srivastava MD / [facility] Interpreting Provider: Lester Srivastava MD Chest X-Ray 04/15/17 07:40 IMPRESSION: 1. Support devices as above. 2. Persistent prominence of the interstitial markings bilaterally. 3. Likely trace right pleural effusion. D/ / Jared Elam MD / Jared Elam MD Interpreting Provider: Jared Elam MD Chest X-Ray 04/16/17 06:47 IMPRESSION: Stable support lines and tubes. Diffuse, bilateral interstitial thickening has mildly improved and may reflect improving interstitial edema or atypical pneumonia. D/ / 04/16/2017 08:28:11 Manny Gutiérrez MD / [facility] Interpreting Provider: Manny Gutiérrez MD Chest CT 04/16/17 08:58 IMPRESSION: 1. Compared to the prior 05/29/2016 exam there is significant progression of now diffuse pulmonary internal spatial and ground-glass opacities which have an apical-base and anterior-posterior gradient. New patchy bilateral lower lobe peribronchial consolidative changes. No effusion or pneumothorax. This could represent atypical infection or acute interstitial pneumonitis. 2. No significant lymphadenopathy. 3. Cardiomegaly and evidence of pulmonary artery hypertension. 4. Multinodular thyroid gland (see recommendation). RECOMMENDATIONS: Managing Incidental Thyroid Nodule Detected at CT or MRI or US 1. Further evaluation by thyroid Ultrasound recommended for these incidental nodules: Patient Age 18 years or less - Any nodule. Patient Age 19-34 years old - Nodule 1 cm in size or greater Patient Age 35 years or more - Nodule 1.5 cm in size or greater 2. Follow up thyroid ultrasound also recommend in these scenarios -Solitary nodule with high risk imaging features (locally invasive nodule or suspicious lymph nodes) -Any nodule in a heterogeneous enlarged thyroid gland 3. NO further imaging is recommended in the following scenarios -No f/u imaging is recommended for ITNs not meeting the above criteria. -No US or f/u recommended for ITNs without high risk features in pts. with limited life expectancy or significant co-morbidities, unless clinically warranted. Note: These recommendations do not apply to pts. w/ increased risk for thyroid cancer or pts. with symptomatic thyroid disease. Recommendations for f/u of Incidental Thyroid Nodules (ITN) found on CT, MR, NM and Extrathyroidal US are based upon the ACR white paper and Yoo 3-tiered system for managing ITNs: J Am Johanna Radiol. 2015 May;12(2): 143-50 D/ / 04/16/2017 11:22:54 Will Coles MD / [facility]ber Interpreting Provider: Will Coles MD Chest X-Ray 04/17/17 06:00 IMPRESSION: Advancement of the endotracheal tube by 2-3 cm is suggested for optimal positioning. Worsening of bilateral mixed interstitial and airspace opacities. D/ / Donell Shafer MD / Donell Shafer MD Interpreting Provider: Donell Shafer MD Date of admission: 04/12/17 11:08 Primary care physician: Iman Monae CNP Consults: 04/13/17 12:59 Consult to Cardiology [CONS] Routine Comment: Consulting Provider: Cardiology Patty Reason for Consult: sustained tachycardia Call Completed: No 04/16/17 10:47 Consult to Nutrition [CONS] Routine Comment: Consulting Provider: NUTRITION Reason for Dietary Consult: Tube Feed Start & Manage Discharging clinician: Kaz Simon Anticipated date of discharge: 04/17/17 - Patient Status Disposition: Transfer Other Condition: Critical Overall status at discharge: patient is not back to baseline - Discharge Instructions Follow Up With: Iman Monae CNP [Primary Care Provider] - - Hospital Course Hospital course: Ms. Montoya is a 56 year old female significant past medical history of migraines, hypertension, previous episodes of acute respiratory failure secondary to pneumonia and sepsis. She was admitted from the emergency department with acute respiratory failure for which she had received azithromycin prior in the outpatient setting. She was hypotensive, tachycardic and tachypnea requiring increased oxygenation. She was started on sepsis protocol with blood cultures, urine culture collected with final results no growth, influenza screening was negative. Upon transfer to the ICU she was placed on BiPAP and altered mental status. Original ABG pH 7.31, PCO2 36, O2 79 and bicarbonate 18. Repeat chest x-ray on 04/12/2017 demonstrating worsening of acute pulmonary infiltration. She continued to require increased oxygenation continued to have tachypnea and she was diureses with concerns that there was overlying pulmonary edema. Echo (04/12)LVEF 55-60%, left ventricular diastolic dysfunction. Atypical septal wall motion c/w BBB. She was on broad- spectrum antibiotics including Levaquin, vancomycin, she is eventually started on Cefotan during her hospital stay. Cardiology was consult as the patient continued to show concerns for pulmonary edema with possible atypical infection. Her respiration status continued to worsen and 04/14/2017 her ABG was pH 7.2, PCO2 76, O2 169, bicarbonate 30 and she was subsequently intubated. She received a left groin central venous catheter. The remainder of her ICU stay her respiratory status continued to worsen. CT of the chestsignificant progression of now diffuse pulmonary internal spatial and ground-glass opacities which have an apical-base and anterior-posterior gradient. New patchy bilateral lower lobe peribronchial consolidative changes. No effusion or pneumothorax. Cardiomegaly and evidence of pulmonary artery hypertension. On 04/17/2017 she required increased FiO2, increasing mechanical ventilation needs. He was determined that she would need a higher level of care and [facility] was contacted and accepted transfer. Through her hospital course she received 5 days of vancomycin before was discontinued, she is on day 4 of Cefotan and day 6 of Levaquin. Drips at time of transfer: - Vecuronium - Levophed drip - propofol drip - Time Spent with Patient Total time spent providing and/or coordinating discharge services: Physical Examination Vital Signs: Vital Signs, Last 4 Hours Temp Pulse Resp BP Pulse Ox 04/17/17 08:43 98.4 F 04/17/17 08:00 82 20 90/45 100 04/17/17 07:55 20 103/55 99 04/17/17 07:00 73 20 97/55 100 04/17/17 06:00 74 20 102/47 100 04/17/17 05:36 20 99 04/17/17 05:00 75 20 100/58 99 General appearance: other (sedated on mechanical ventilation) Eyes: nonicteric ENT: oropharynx moist Neck: supple Inspection: other (corelating with mechanical ventilation) Cardiovascular: regular rate and rhythm Gastrointestinal: normoactive bowel sounds Integumentary: normal Extremities: no cyanosis unable to assess due to mental status <Elie Mijares S - Last Filed: 04/17/17 21:48> Date of Encounter: 04/17/17 Labs on day of discharge: Labs from last 24 hours 04/17/17 04/17/17 04/17/17 04:50 04:40 04:40 WBC 14.9 H RBC 3.46 L Hgb 10.3 L Hct 31.7 L MCV 91.6 MCH 29.8 MCHC 32.5 RDW 14.3 Plt Count 220 MPV 9.6 Immature Gran % 2.1 Seg Neutrophils % 89.1 Lymphocytes % 5.0 Monocytes % 3.7 Eosinophils % 0.0 Basophils % 0.1 Neutrophils # 13.3 H Lymphocytes # 0.8 Monocytes # 0.6 Eosinophils # 0.0 Basophils # 0.0 Nucleated RBCs/100 WBC 0.1 H Sample Site R Radial ABG pH 7.41 ABG pCO2 58 H ABG pO2 69 L ABG HCO3 37 H ABG Total CO2 39 H ABG O2 Saturation 93 L ABG Base Excess 11 H Shmuel Test N/A Respiration Rate 20 O2 Delivery Device Adult Vent Blood Gas Modality ASSIST CONTROL Inspired O2 70.0 Tidal Volume 380 PEEP 10 Sodium 142 Potassium 3.8 Chloride 98 Carbon Dioxide 33 H BUN 44 H Creatinine 1.05 Est GFR ( Amer) > 60 Est GFR (Non-Af Amer) 54 L BUN/Creatinine Ratio 42 H Glucose 169 H POC Glucose Calculated Osmolality 309 H Calcium 8.9 Phosphorus 3.8 Magnesium 2.3 04/16/17 04/16/17 23:35 16:41 WBC RBC Hgb Hct MCV MCH MCHC RDW Plt Count MPV Immature Gran % Seg Neutrophils % Lymphocytes % Monocytes % Eosinophils % Basophils % Neutrophils # Lymphocytes # Monocytes # Eosinophils # Basophils # Nucleated RBCs/100 WBC Sample Site ABG pH ABG pCO2 ABG pO2 ABG HCO3 ABG Total CO2 ABG O2 Saturation ABG Base Excess Shmuel Test Respiration Rate O2 Delivery Device Blood Gas Modality Inspired O2 Tidal Volume PEEP Sodium Potassium Chloride Carbon Dioxide BUN Creatinine Est GFR ( Amer) Est GFR (Non-Af Amer) BUN/Creatinine Ratio Glucose POC Glucose 168 H 151 H Calculated Osmolality Calcium Phosphorus Magnesium - Impressions ITS Impressions Echocardiogram 04/12/17 11:55 Impressions: LVEF 55-60%. Normal LV chamber size, wall thickness and function. Atypical septal motion consistent with bundle branch block. Mild left ventricular diastolic dysfunction. Mildly dilated right ventricle with normal function. No pulmonary hypertension. RVSP not well obtained due to poor TR jet. No significant valvular dysfunction. Left Ventricular Wall Motion: Rest Echo Findings All wall segments showed normal motion. Findings: Study Quality * Technically adequate exam. ECG Findings * Sinus rhythm with BBB. Left Ventricle * LVEF 55-60%. * Normal LV chamber size, wall thickness and function. * Atypical septal motion consistent with bundle branch block. * Mild left ventricular diastolic dysfunction. Right Ventricle * Mildly dilated right ventricle with normal function. Left Atrium * Mildly dilated left atrium. Right Atrium * Normal right atrial size. Aortic Valve * Trileaflet aortic valve with normal function. * No aortic regurgitation. * No aortic stenosis. Mitral Valve * Normal mitral valve structure and function. * No mitral regurgitation. * No mitral stenosis. Tricuspid Valve * Normal tricuspid valve structure and function. * Trace tricuspid regurgitation. * No pulmonary hypertension. RVSP not well obtained due to poor TR jet. Pulmonic Valve * Normal pulmonic valve structure and function. * Trace pulmonic regurgitation. Aorta * Normally sized aortic root. Pericardium * There is a trivial pericardial effusion present. IVC * Normal IVC dimensions and inspiratory collapse. Pulmonary Artery * Normal visualized portions of the main pulmonary artery. Chest X-Ray 04/13/17 11:53 IMPRESSION: Severe acute pulmonary edema which has worsened since yesterday. D/ / Ry Leonard MD / Ry Leonard MD Interpreting Provider: Ry Leonard MD Chest X-Ray 04/13/17 20:54 IMPRESSION: Findings are suggestive of worsening congestive heart failure. Recommend continued radiographic follow-up. Multiple dilated bowel loops within upper abdomen. D/ / Aneudy Gutiérrez MD / Aneudy Gutiérrez MD Interpreting Provider: Aneudy Gutiérrez MD Chest X-Ray 04/14/17 06:00 IMPRESSION: 1. Unchanged asymmetric left lung airspace opacity appearing to represent pneumonia given air bronchograms. Severe asymmetric alveolar edema could appear similar. 2. Diffuse interstitial opacities bilaterally, potentially pneumonia or edema. 3. Mild to moderate cardiomegaly. 4. Suspected bilateral effusions. D/ / Lester Pride MD / Lester Pride MD Interpreting Provider: Lester Pride MD X-Ray 04/14/17 11:02 IMPRESSION: NG tube side hole in the region of the gastric body and tip in the region of the gastric antrum. D/ / 04/14/2017 15:02:21 Lester Srivastava MD / [facility] Interpreting Provider: Lester Srivastava MD Chest X-Ray 04/14/17 12:51 IMPRESSION: Endotracheal tube tip in the right mainstem bronchus proximally. This should be withdrawn several cm. Otherwise, stable chest demonstrating bilateral diffuse airspace disease. NG tube courses into the abdomen. The findings were sent to the Radiology Results Communication Center at 2:04 pm on 04/14/2017to be communicated to a licensed caregiver. D/ / 04/14/2017 14:35:37 Lester Srivastava MD / [facility] Interpreting Provider: Lester Srivastava MD Chest X-Ray 04/15/17 07:40 IMPRESSION: 1. Support devices as above. 2. Persistent prominence of the interstitial markings bilaterally. 3. Likely trace right pleural effusion. D/ / Jared Elam MD / Jared Elam MD Interpreting Provider: Jared Elam MD Chest X-Ray 04/16/17 06:47 IMPRESSION: Stable support lines and tubes. Diffuse, bilateral interstitial thickening has mildly improved and may reflect improving interstitial edema or atypical pneumonia. D/ / 04/16/2017 08:28:11 Manny Gutiérrez MD / [facility] Interpreting Provider: Manny Gutiérrez MD Chest CT 04/16/17 08:58 IMPRESSION: 1. Compared to the prior 05/29/2016 exam there is significant progression of now diffuse pulmonary internal spatial and ground-glass opacities which have an apical-base and anterior-posterior gradient. New patchy bilateral lower lobe peribronchial consolidative changes. No effusion or pneumothorax. This could represent atypical infection or acute interstitial pneumonitis. 2. No significant lymphadenopathy. 3. Cardiomegaly and evidence of pulmonary artery hypertension. 4. Multinodular thyroid gland (see recommendation). RECOMMENDATIONS: Managing Incidental Thyroid Nodule Detected at CT or MRI or US 1. Further evaluation by thyroid Ultrasound recommended for these incidental nodules: Patient Age 18 years or less - Any nodule. Patient Age 19-34 years old - Nodule 1 cm in size or greater Patient Age 35 years or more - Nodule 1.5 cm in size or greater 2. Follow up thyroid ultrasound also recommend in these scenarios -Solitary nodule with high risk imaging features (locally invasive nodule or suspicious lymph nodes) -Any nodule in a heterogeneous enlarged thyroid gland 3. NO further imaging is recommended in the following scenarios -No f/u imaging is recommended for ITNs not meeting the above criteria. -No US or f/u recommended for ITNs without high risk features in pts. with limited life expectancy or significant co-morbidities, unless clinically warranted. Note: These recommendations do not apply to pts. w/ increased risk for thyroid cancer or pts. with symptomatic thyroid disease. Recommendations for f/u of Incidental Thyroid Nodules (ITN) found on CT, MR, NM and Extrathyroidal US are based upon the ACR white paper and Yoo 3-tiered system for managing ITNs: J Am Johanna Radiol. 2015 May;12(2): 143-50 D/ / 04/16/2017 11:22:54 Will Coles MD / [facility] Interpreting Provider: Will Coles MD Chest X-Ray 04/17/17 06:00 IMPRESSION: Advancement of the endotracheal tube by 2-3 cm is suggested for optimal positioning. Worsening of bilateral mixed interstitial and airspace opacities. D/ / Donell Shafer MD / Donell Shafer MD Interpreting Provider: Donell Shafer MD Date of admission: 04/12/17 11:08 Primary care physician: Iman Monae CNP Consults: 04/13/17 12:59 Consult to Cardiology [CONS] Routine Comment: Consulting Provider: Cardiology Coulters Reason for Consult: sustained tachycardia Call Completed: No 04/16/17 10:47 Consult to Nutrition [CONS] Routine Comment: Consulting Provider: NUTRITION Reason for Dietary Consult: Tube Feed Start & Manage - Hospital Course Hospital course: Ms. Montoya is a 56 year old female agree with above documentation by the resident with some additional comments Patient had significant overnight events after 48 hrs of conventional ventilation patient lung mechanics and V/Q mismatch got worsened even slight turning of the patient caused bradycardia and hypoxia , worsening lung mechanics with plateau pressures needed to be paralyzed again with single organ failure of ARDS patient will do well in the background of worsening lung mechanics these subset of patients will do well on ECMO since we have the capacity at [facility] it was decided with family's consent to transfer to [facility] for possible intervention with extracorporeal membrane Oxygenation. Elie Mijares MD - Time Spent with Patient Total time spent providing and/or coordinating discharge services: Greater than 30 minutes (I SPENT 35 MINUTES OF CRITICAL CARE TIME IN MEDICAL DECISION MAKING) - Attending Attestation I saw the patient with the resident agree with some additional findings had significant overnight events with increasing FIO2 with turning or suctioning she developed hypoxia and bradycardia frequently worsening ARDS Labs and Radiology were reviewed Ventilator data were reviewed adjusted FIO2 and Ventilator settings , adjusted TV as plateau pressure was high around 40 needs heavy sedation PEDIATRIC HOSPITALIST: Patient is intubated and sedated had to paralyze her because of worsening lung compliance . NECK : No JVD appreciated Pulmonary : Patient has worsened oxygenation today developed severe ARDS now with PaO2/FIO2 ratio around 98 after 48 hrs of conventional ventilation strategy the lung mechanics is getting worsened , since patient with no much multiple comorbidities has single organ failure due to ARDS if she is worsens further she will be a great candidate for ECMO this subset of patients do well if started on ECMO will shift her to [facility] for possible ECMO intervention , spoke with family agreed with plan patient went in life flight. Cardiac : Hemodynaglamically stable has diastolic dysfunction will continue diuresis as tolerated as her blood pressure is borderline Nutrition/GI: Patient is on tube feeds, PPI prophylaxis Renal : Labs reviewed Heme onc : No acute issues ID : Air space disease possible viral / atypical pneumonia will continue the broad spectrum antibiotics, patient was on vanc, cefepime and levofloxacin Musculo skeletal / skin issues : No acute issues Disposition : Remain critically ill Code status: Full Code Family/POA: Daughter , Mother . Updated about the transfer to ECMO facility..
[2017-04-17 09:01] VITALS: BP 90/54
[2017-04-17] MEDS ORDERED: *HR* Rocuronium Bromide 100 MG/10 ML VIAL IVC ONE (09:52)
--- NOTE | 2017-04-17 16:39 | Electrocardiograph Report ---
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
== END 2017-04-17 10:29 | disposition other institution (70) | DRG 871 ==
LOC: EMEROO 08:01 → ICNU 11:08 → SUATTDRO 11:08 → ICNU 11:41
PROVIDERS: ADMIT Internal Medicine Pulmonary Disease; ATTEND Internal Medicine Pulmonary Disease

== ENCOUNTER 2017-07-26 15:50 | Observation (INO) ==
--- NOTE | 2017-07-26 16:02 | Emergency Department Note ---
Disposition Clinical Impression: Hyponatremia, Hypochloremia, Nonspecific abnormal electrocardiogram (ECG) (EKG) , Barbiturate use Concussion with loss of consciousness Qualifiers: Encounter type: initial encounter Qualified Code(s): S06.0X9A - Concussion with loss of consciousness of unspecified duration, initial encounter Head injury Qualifiers: Encounter type: initial encounter Qualified Code(s): S09.90XA - Unspecified injury of head, initial encounter Fall Qualifiers: Encounter type: initial encounter Qualified Code(s): W19.XXXA - Unspecified fall, initial encounter Disposition: Admitted As Inpatient Condition: Good Referrals: Iman Monae CNP [Primary Care Provider] - Forms: ED Satisfaction Letter Time of Disposition: 16:32 Fall HPI - General Chief Complaint: ED Fall Stated Complaint: fall Time Seen by Provider: 07/26/17 15:56 Source: patient, EMS Mode of arrival: EMS Limitations: no limitations Nursing Notes Reviewed: Yes Vital Signs Reviewed: Yes - History of Present Illness HPI Narrative: Patient is a 56-year-old female with past medical history of previous drug use who presents today due to fall and confusion. She presented via EMS. On presentation, the patient is sleepy, slow to answer questions but is oriented 3. She states that she has felt dizzy today, has had nausea and vomiting but denies any diarrhea or abdominal pain. She says that she has fallen down a flight of stairs at least 2 times today, one of which she hit her head. She denies any loss of consciousness, numbness, tingling, weakness. She denies any current chest pain, shortness breath, abdominal pain, any other injuries. - Related Data Home Medications Medication Instructions Recorded Confirmed Chlorpromazine HCl 100 mg PO QAM 12/25/16 04/12/17 Chlorpromazine HCl 300 mg PO HS 12/25/16 04/12/17 OLANZapine [Zyprexa] 5 mg PO HS 12/25/16 04/12/17 Paroxetine [Paxil] 60 mg PO DAILY 12/25/16 04/12/17 rOPINIRole [Requip] 0.25 mg PO HS 04/12/17 04/12/17 Previous Rx's Medication Instructions Recorded Calcium Carbonate [Tums] 1,000 mg PO Q4HR PRN 12/27/16 Omeprazole [PriLOSEC] 20 mg PO BIDAC #60 cap 12/27/16 Cefepime HCl/Dextrose, Iso-Osm 2 gm IV Q8H #2 mls 04/17/17 [Cefepime 2 gm Injection] Chlorhexidine Rinse 15 ml MM BID mouthwash 04/17/17 Furosemide [Lasix] 40 mg IVP BID vial 04/17/17 Haloperidol [Haldol] 5 mg PO QID tablet 04/17/17 Heparin 5,000 unit SQ Q8HCO vial 04/17/17 Ipratropium/Albuterol Neb [Duoneb] 3 ml IH [id number] inhsol 04/17/17 Lacri-Lube [Lacri-lube] 1 appl BOTH EYES Q2HR PRN tube 04/17/17 Lacri-Lube [Lacri-lube] 1 appl BOTH EYES Q4HR tube 04/17/17 Levofloxacin 750 MG/150 ML 750 mg IVPB DAILY #1 bag 04/17/17 [Levaquin Premix 750mg/150 mL] Metoprolol [Lopressor] 5 mg IVP BID vial 04/17/17 Naloxone [Narcan] 0.4 mg IVP Q2MIN PRN inj 04/17/17 Pantoprazole [Protonix] 40 mg IVPB DAILY vial 04/17/17 Quetiapine Fumarate [Seroquel] 25 mg PO HS tablet 04/17/17 methylPREDNISolone [Solu-MEDROL] 40 mg IVP Q8HR vial 04/17/17 predniSONE [PredniSONE] 20 mg PO BID #10 tablet 05/30/17 Naproxen 500 mg PO BID 10 Days #20 tablet 06/02/17 Allergies Allergy/AdvReac Type Severity Reaction Status Date / Time metoclopramide [From Reglan] Allergy Mild Itching Verified 06/23/17 08:54 tramadol Allergy Mild Itching Verified 06/23/17 08:54 amitriptyline Allergy Itching Verified 06/23/17 08:54 codeine Allergy Hives Verified 06/23/17 08:54 Sulfa (Sulfonamide Allergy See Verified 06/23/17 08:54 Antibiotics) Comments sulfamethoxazole Allergy See Verified 06/23/17 08:54 [From Bactrim] Comments trimethoprim [From Bactrim] Allergy See Verified 06/23/17 08:54 Comments lorazepam [From Ativan] AdvReac Mild Anxiety Verified 06/23/17 08:54 benztropine [From Cogentin] AdvReac See Verified 06/23/17 08:54 Comments ciprofloxacin [From Cipro] AdvReac See Verified 06/23/17 08:54 Comments onabotulinumtoxinA AdvReac See Verified 06/23/17 08:54 [From Botox] Comments sertraline [From Zoloft] AdvReac Headache Verified 06/23/17 08:54 sumatriptan [From Imitrex] AdvReac Agitated Verified 06/23/17 08:54 topiramate [From Topamax] AdvReac See Verified 06/23/17 08:54 Comments All systems ED: reviewed and negative except as stated. Constitutional: Denies: fever Cardiovascular: Denies: chest pain Respiratory: Denies: cough, dyspnea Gastrointestinal: Denies: abdominal pain, nausea, vomiting, diarrhea Genitourinary: Reports: other (Dark urine). Denies: urgency, dysuria, frequency , hematuria Musculoskeletal: Denies: back pain, neck pain, arthralgia, myalgia Integumentary: Denies: rash Neurological: Reports: headache, confusion, other. 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, other - Social History Smoking Status: Former smoker Alcohol use: Reports: none Drug use: Reports: none Physical Exam - General Limitations: no limitations General appearance: other (sleepy, slow to answer questions) - Head Head exam: atraumatic, normocephalic, normal inspection - Eye Eye exam: Present: PERRL, EOMI, mydriasis - ENT ENT exam: normal exam, normal oropharynx, mucous membranes moist - Neck Neck exam: Present: normal inspection, full ROM, trachea midline - Chest Chest inspection: Present: normal inspection, symmetric chest wall rise - Respiratory Respiratory exam: Present: normal lung sounds bilaterally - Cardiovascular Cardiovascular exam: Present: regular rate, normal rhythm, normal heart sounds - Abdominal Exam Abdominal exam: Present: soft, Non-Tender. Absent: tenderness, distention, guarding, rebound, rigidity - Extremities Exam Extremities exam: Present: normal inspection, full ROM. Absent: tenderness, pedal edema - Neurological Exam Neurological exam: Present: other (sleepy, slow to answer questions but oriented x 3. Appears possibly under influence of drug) - Psychiatric Psychiatric exam: Present: normal affect, normal mood - Skin Skin exam: Present: warm, dry, intact, normal color Course Course Narrative: Vitals WNL on exam. Neuro exam shows: sleepy, slow to answer questions but oriented x 3. Appears possibly under influence of drug. No focal neurologic deficit. No obvious signs of injury. Currently concerned that the patient could be under the influence of drugs. Pupils were dilated. Otherwise, her regular rate and rhythm, lungs clear to auscultation, abdomen soft and nontender. Over for altered mental status workup with CT of the head and neck, basic labs, LFTs, TSH, urinalysis for UTI. 18:36 mild elevation in white blood cell count of 14.2. Hyponatremia at 129. Otherwise the rest of the labs showed no major abnormalities. Urinalysis negative. Urine tox screen positive for barbiturates. Head and cervical spine CT were negative for any acute process. Chest x-ray was negative for any acute process. EKG shows ST depression and T-wave inversion in V1 through V6, active chest pain or shortness of breath at this time. Trop negative. Patient was given normal saline 1 L bolus. She is now more alert. Will admit the patient for further care due to initial confusion, leukocytosis, hyponatremia, nausea, vomiting, nonspecific EKG changes, fall. Chest X-Ray 07/26/17 15:57 IMPRESSION: No acute process. D/ / Vishal Paul MD / Vishal Paul MD Interpreting Provider: Vishal Paul MD Head CT 07/26/17 15:59 IMPRESSION: No acute intracranial abnormality. D/ / Vishal Paul MD / Vishal Paul MD Interpreting Provider: Vishal Paul MD Cervical Spine CT 07/26/17 16:01 IMPRESSION: 1. No evidence of cervical spine fracture or listhesis. 2. Moderate facet arthropathy on the right at C3-C4 and C4-C5. D/ / 07/26/2017 17:03:29 Song Canseco MD / kimmy Interpreting Provider: Song Canseco MD Vital Signs Temperature 98.1 F 07/26/17 15:56 Pulse Rate 75 07/26/17 15:56 Respiratory Rate 16 07/26/17 15:56 Blood Pressure 133/77 07/26/17 15:56 O2 Sat by Pulse Oximetry 95 07/26/17 15:56 Temperature 98.1 F 07/26/17 15:56 Pulse Rate 73 07/26/17 17:42 Respiratory Rate 20 07/26/17 17:42 Blood Pressure 141/76 07/26/17 17:42 O2 Sat by Pulse Oximetry 96 07/26/17 17:42 Oxygen Delivery Oxygen Delivery Room Air Fall - [facility] Narrative Medical decision making narrative: mild elevation in white blood cell count of 14.2. Hyponatremia at 129. Otherwise the rest of the labs showed no major abnormalities. Urinalysis negative. Urine tox screen positive for barbiturates. Head and cervical spine CT were negative for any acute process. Chest x-ray was negative for any acute process. EKG shows ST depression and T-wave inversion in V1 through V6, active chest pain or shortness of breath at this time. Trop negative. Patient was given normal saline 1 L bolus. She is now more alert. Will admit the patient for further care due to initial confusion, leukocytosis, hyponatremia, nausea, vomiting, nonspecific EKG changes, fall. - Medical Records Medical records reviewed: Yes I reviewed the patient's medical records. - Lab Data Lab results reviewed: Yes I reviewed the patient's lab results. Result diagrams: 07/26/17 16:24 07/26/17 16:24 Lab Results 07/26/17 07/26/17 07/26/17 Range/Units 16:24 16:24 16:24 WBC 14.2 H (4.3-11.1) K/mcL RBC 4.13 (3.82-4.97) M/mcL Hgb 12.4 (11.5-15.4) g/dL Hct 34.9 L (35.3-44.9) % MCV 84.5 (83.0-100.0) fL MCH 30.0 (28.0-33.3) pg MCHC 35.5 (31.6-35.5) g/dL RDW 12.4 (11.5-14.5) % Plt Count 249 (140-400) K/mcL MPV 9.6 (9.4-12.4) fL Immature Gran % 0.5 (0-4) % Seg Neutrophils % 94.3 % Lymphocytes % 3.4 % Monocytes % 1.7 % Eosinophils % 0.0 % Basophils % 0.1 % Neutrophils # 13.4 H (1.6-8.9) K/mcL Lymphocytes # 0.5 L (0.6-4.6) K/mcL Monocytes # 0.2 (0.0-1.3) K/mcL Eosinophils # 0.0 (0.0-0.6) K/mcL Basophils # 0.0 (0.0-0.2) K/mcL PT 11.9 (9.4-12.1) Seconds INR 1.1 APTT 53.9 H (26.0-36.0) Seconds Sodium 126 L (136-145) mEq/L Potassium 3.5 (3.5-5.1) mEq/L Chloride 91 L (98-107) mEq/L Carbon Dioxide 25 (23-29) mEq/L BUN 9 (6-20) mg/dL Creatinine 0.66 (0.60-1.20) mg/dL Est GFR ( Amer) > 60 (> 60) Est GFR (Non-Af Amer) > 60 (> 60) BUN/Creatinine Ratio 14 (6-26) Glucose 136 H (70-105) mg/dL Calculated Osmolality 263 L (280-300) Calcium 9.2 (8.6-10.3) mg/dL Total Bilirubin 0.3 (0.3-1.0) mg/dL Direct Bilirubin 0.1 (0.0-0.2) mg/dL Indirect Bilirubin 0.2 (0.0-1.2) mg/dL AST 17 (13-39) Units/L ALT 23 (7-52) Units/L Alkaline Phosphatase 190 H (34-104) Units/L Troponin I < 0.03 (< 0.04) ng/mL Serum Total Protein 6.8 (6.4-8.9) g/dL Albumin 4.2 (3.5-5.7) g/dL Globulin 2.6 (2.4-3.5) g/dL Albumin/Globulin Ratio 1.6 (1.1-2.2) TSH 1.024 (0.340-5.600) mcIU/mL Urine Color (Yellow) Urine Clarity (Clear) Urine pH (5.0-8.0) pH Units Ur Specific [place] (1.010-1.025) Urine Protein (Neg-Trace) mg/dL Urine Glucose (UA) (Normal) mg/dL Urine Ketones (Negative) mg/dL Urine Blood (Negative) Urine Nitrite (Negative) Urine Bilirubin (Negative) Urine Urobilinogen (Normal) mg/dL Ur Leukocyte Esterase (Negative) Urine Microscopic RBC (0-3) per hpf Urine Microscopic WBC (0-3) per hpf Ur Squamous Epith Cells (None-Few) per lpf Urine Bacteria (None-Few) per hpf Hyaline Casts (None-Few) per lpf Ur Culture Indicated? (NO) Salicylates (15.0-30.0) mg/dL Urine Opiates Screen (Ncamez=448) ng/mL Acetaminophen (10-20) mcg/mL Ur Barbiturates Screen (Cibjfx=079) ng/mL Ur Phencyclidine Scrn (Cutoff=25) ng/mL Ur Amphetamines Screen (Fpdmvk=4240) ng/mL U Benzodiazepines Scrn (Mwahfj=149) ng/mL Urine Cocaine Screen (Cutoff= 300) ng/mL U Marijuana (THC) Screen (Cutoff = 50) ng/mL 07/26/17 07/26/17 07/26/17 Range/Units 16:24 17:14 17:16 WBC (4.3-11.1) K/mcL RBC (3.82-4.97) M/mcL Hgb (11.5-15.4) g/dL Hct (35.3-44.9) % MCV (83.0-100.0) fL MCH (28.0-33.3) pg MCHC (31.6-35.5) g/dL RDW (11.5-14.5) % Plt Count (140-400) K/mcL MPV (9.4-12.4) fL Immature Gran % (0-4) % Seg Neutrophils % % Lymphocytes % % Monocytes % % Eosinophils % % Basophils % % Neutrophils # (1.6-8.9) K/mcL Lymphocytes # (0.6-4.6) K/mcL Monocytes # (0.0-1.3) K/mcL Eosinophils # (0.0-0.6) K/mcL Basophils # (0.0-0.2) K/mcL PT (9.4-12.1) Seconds INR APTT (26.0-36.0) Seconds Sodium (136-145) mEq/L Potassium (3.5-5.1) mEq/L Chloride (98-107) mEq/L Carbon Dioxide (23-29) mEq/L BUN (6-20) mg/dL Creatinine (0.60-1.20) mg/dL Est GFR ( Amer) (> 60) Est GFR (Non-Af Amer) (> 60) BUN/Creatinine Ratio (6-26) Glucose (70-105) mg/dL Calculated Osmolality (280-300) Calcium (8.6-10.3) mg/dL Total Bilirubin (0.3-1.0) mg/dL Direct Bilirubin (0.0-0.2) mg/dL Indirect Bilirubin (0.0-1.2) mg/dL AST (13-39) Units/L ALT (7-52) Units/L Alkaline Phosphatase (34-104) Units/L Troponin I (< 0.04) ng/mL Serum Total Protein (6.4-8.9) g/dL Albumin (3.5-5.7) g/dL Globulin (2.4-3.5) g/dL Albumin/Globulin Ratio (1.1-2.2) TSH (0.340-5.600) mcIU/mL Urine Color Yellow (Yellow) Urine Clarity Clear (Clear) Urine pH 6.0 (5.0-8.0) pH Units Ur Specific [place] 1.025 (1.010-1.025) Urine Protein Trace (Neg-Trace) mg/dL Urine Glucose (UA) Normal (Normal) mg/dL Urine Ketones 15 H (Negative) mg/dL Urine Blood Negative (Negative) Urine Nitrite Negative (Negative) Urine Bilirubin Negative (Negative) Urine Urobilinogen Normal (Normal) mg/dL Ur Leukocyte Esterase Negative (Negative) Urine Microscopic RBC 0-3 (0-3) per hpf Urine Microscopic WBC 0-3 (0-3) per hpf Ur Squamous Epith Cells Many H (None-Few) per lpf Urine Bacteria None Seen (None-Few) per hpf Hyaline Casts None Seen (None-Few) per lpf Ur Culture Indicated? NO (NO) Salicylates < 2.5 L (15.0-30.0) mg/dL Urine Opiates Screen Negative (Vllixf=134) ng/mL Acetaminophen < 10 L (10-20) mcg/mL Ur Barbiturates Screen Positive H (Wgiqgf=879) ng/mL Ur Phencyclidine Scrn Negative (Cutoff=25) ng/mL Ur Amphetamines Screen Negative (Emupcc=6062) ng/mL U Benzodiazepines Scrn Negative (Clfmzs=459) ng/mL Urine Cocaine Screen Negative (Cutoff= 300) ng/mL U Marijuana (THC) Screen Negative (Cutoff = 50) ng/mL - Radiology Data Radiology results reviewed: Yes I reviewed the patient's radiology results. Chest X-Ray 07/26/17 15:57 IMPRESSION: No acute process. D/ / Vishal Paul MD / Vishal Paul MD Interpreting Provider: Vishal Paul MD Head CT 07/26/17 15:59 IMPRESSION: No acute intracranial abnormality. D/ / Vishal Paul MD / Vishal Paul MD Interpreting Provider: Vishal Paul MD Cervical Spine CT 07/26/17 16:01 IMPRESSION: 1. No evidence of cervical spine fracture or listhesis. 2. Moderate facet arthropathy on the right at C3-C4 and C4-C5. D/ / 07/26/2017 17:03:29 Song Canseco MD / kimmy Interpreting Provider: Song Canseco MD - EKG Data EKG attestation: Yes I reviewed and interpreted this EKG. EKG results narrative: 07/26/2017 at 16:10. Normal sinus rhythm. Rate 75. IA 167. QRS 106. QTC 481. Mild left axis deviation. ST depression in lead V2 through V5 with T-wave inversions. No acute ST elevation. S.B.ATrent - Aimee Situation: Demographics, MOA Background: Presenting Complaint, Relevant PMH, Meds, & Allergies Assessment: Vital Signs, Course and respsone to treatment, Exam Concerns, Patient/Family Expectation, Pertinant Lab Results, Outstanding Labs Recommendation: Barrier(s) to disposition, Recommendation based on pending studies, treatments, or consults S.B.ATrent Report Given to: Dr. La Yu Repor Time: 19:07
--- NOTE | 2017-07-26 16:15 | Emergency Department Note ---
Disposition Clinical Impression: Concussion with loss of consciousness Qualifiers: Encounter type: initial encounter Qualified Code(s): S06.0X9A - Concussion with loss of consciousness of unspecified duration, initial encounter Disposition: Still a Patient Forms: ED Satisfaction Letter General Adult HPI - General Chief complaint: ED Fall Stated complaint: fall Time Seen by Provider: 07/26/17 15:56 Source: patient, EMS Mode of arrival: EMS Limitations: no limitations Nursing Notes Reviewed: Yes Vital Signs Reviewed: Yes - History of Present Illness Pain Scale: 0 - Related Data Home Medications Medication Instructions Recorded Confirmed Chlorpromazine HCl 100 mg PO QAM 12/25/16 04/12/17 Chlorpromazine HCl 300 mg PO HS 12/25/16 04/12/17 OLANZapine [Zyprexa] 5 mg PO HS 12/25/16 04/12/17 Paroxetine [Paxil] 60 mg PO DAILY 12/25/16 04/12/17 rOPINIRole [Requip] 0.25 mg PO HS 04/12/17 04/12/17 Previous Rx's Medication Instructions Recorded Calcium Carbonate [Tums] 1,000 mg PO Q4HR PRN 12/27/16 Omeprazole [PriLOSEC] 20 mg PO BIDAC #60 cap 12/27/16 Cefepime HCl/Dextrose, Iso-Osm 2 gm IV Q8H #2 mls 04/17/17 [Cefepime 2 gm Injection] Chlorhexidine Rinse 15 ml MM BID mouthwash 04/17/17 Furosemide [Lasix] 40 mg IVP BID vial 04/17/17 Haloperidol [Haldol] 5 mg PO QID tablet 04/17/17 Heparin 5,000 unit SQ Q8HCO vial 04/17/17 Ipratropium/Albuterol Neb [Duoneb] 3 ml IH [id number] inhsol 04/17/17 Lacri-Lube [Lacri-lube] 1 appl BOTH EYES Q2HR PRN tube 04/17/17 Lacri-Lube [Lacri-lube] 1 appl BOTH EYES Q4HR tube 04/17/17 Levofloxacin 750 MG/150 ML 750 mg IVPB DAILY #1 bag 04/17/17 [Levaquin Premix 750mg/150 mL] Metoprolol [Lopressor] 5 mg IVP BID vial 04/17/17 Naloxone [Narcan] 0.4 mg IVP Q2MIN PRN inj 04/17/17 Pantoprazole [Protonix] 40 mg IVPB DAILY vial 04/17/17 Quetiapine Fumarate [Seroquel] 25 mg PO HS tablet 04/17/17 methylPREDNISolone [Solu-MEDROL] 40 mg IVP Q8HR vial 04/17/17 predniSONE [PredniSONE] 20 mg PO BID #10 tablet 05/30/17 Naproxen 500 mg PO BID 10 Days #20 tablet 06/02/17 Allergies Allergy/AdvReac Type Severity Reaction Status Date / Time metoclopramide [From Reglan] Allergy Mild Itching Verified 06/23/17 08:54 tramadol Allergy Mild Itching Verified 06/23/17 08:54 amitriptyline Allergy Itching Verified 06/23/17 08:54 codeine Allergy Hives Verified 06/23/17 08:54 Sulfa (Sulfonamide Allergy See Verified 06/23/17 08:54 Antibiotics) Comments sulfamethoxazole Allergy See Verified 06/23/17 08:54 [From Bactrim] Comments trimethoprim [From Bactrim] Allergy See Verified 06/23/17 08:54 Comments lorazepam [From Ativan] AdvReac Mild Anxiety Verified 06/23/17 08:54 benztropine [From Cogentin] AdvReac See Verified 06/23/17 08:54 Comments ciprofloxacin [From Cipro] AdvReac See Verified 06/23/17 08:54 Comments onabotulinumtoxinA AdvReac See Verified 06/23/17 08:54 [From Botox] Comments sertraline [From Zoloft] AdvReac Headache Verified 06/23/17 08:54 sumatriptan [From Imitrex] AdvReac Agitated Verified 06/23/17 08:54 topiramate [From Topamax] AdvReac See Verified 06/23/17 08:54 Comments Past Medical History - Past Medical History Medical history: Reports: arthritis, CHF, DVT, hyperlipidemia, hypertension Surgical history: Reports: , cholecystectomy, herniorrhaphy, hysterectomy Psychiatric history: Reports: anxiety, bipolar, depression 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 We had independent face-to- face examination and discussion. The patient was seen with the emergency medicine resident Dr. Kush Arteaga I examined this patient and my medical decision-making was reviewed with the Resident Physician/WEB ART DIRECTOR/PA. I agree with the documented findings, disposition and treatment plan as described except to the extent set forth below. Briefly: 56-year-old female fell several times today down several flights of stairs different times. She feels "out of it. Complains of headache neck pain is able to move all 4 extremities. No midline tenderness noted. Pupils are dilated. But reactive. Patient with a noncontrast CT scan of the head and C- spine. Screening labs EKG. Observation period was the patient's mental status clears patient will be admitted for the very least concussion altered mental status. Disposition pending Time: 16:13 Vital Signs Temperature 98.1 F 07/26/17 15:56 Pulse Rate 75 07/26/17 15:56 Respiratory Rate 16 07/26/17 15:56 Blood Pressure 133/77 07/26/17 15:56 O2 Sat by Pulse Oximetry 95 07/26/17 15:56 Temperature 98.1 F 07/26/17 15:56 Pulse Rate 75 07/26/17 15:56 Respiratory Rate 16 07/26/17 15:56 Blood Pressure 133/77 07/26/17 15:56 O2 Sat by Pulse Oximetry 95 07/26/17 15:56 Oxygen Delivery Oxygen Delivery Room Air
[2017-07-26 16:43] LABS: Basophils % 0.1 %; Hematocrit 34.9 % (35.3-44.9); Hemoglobin 12.4 g/dL (11.5-15.4); Immature Granulocytes % 0.5 % (0-4); Lymphocytes # 0.5 K/mcL (0.6-4.6); Lymphocytes % 3.4 %; Mean Corpuscular HGB Conc 35.5 g/dL (31.6-35.5); Mean Corpuscular Volume 84.5 fL (83.0-100.0); Mean Platelet Volume 9.6 fL (9.4-12.4); Monocytes # 0.2 K/mcL (0.0-1.3); Monocytes % 1.7 %; Neutrophils # 13.4 K/mcL (1.6-8.9); Platelet Count 249 K/mcL (140-400); Red Blood Count 4.13 M/mcL (3.82-4.97); Red Cell Distribution Width 12.4 % (11.5-14.5); Segmented Neutrophils % 94.3 %
[2017-07-26 16:48] LABS: INR 1.1; Prothrombin Time 11.9 Seconds (9.4-12.1)
[2017-07-26 16:51] LABS: Activated Partial Thrombo Time 53.9 Seconds (26.0-36.0)
[2017-07-26 16:57] LABS: Acetaminophen < 10 mcg/mL (10-20); Alanine Aminotransferase 23 Units/L (7-52); Albumin 4.2 g/dL (3.5-5.7); Albumin/Globulin Ratio 1.6 (1.1-2.2); Alkaline Phosphatase 190 Units/L (34-104); Aspartate Amino Transferase 17 Units/L (13-39); BUN/Creatinine Ratio 14 (6-26); Bilirubin,Direct 0.1 mg/dL (0.0-0.2); Bilirubin,Indirect 0.2 mg/dL (0.0-1.2); Bilirubin,Total 0.3 mg/dL (0.3-1.0); Blood Urea Nitrogen 9 mg/dL (6-20); Calcium 9.2 mg/dL (8.6-10.3); Carbon Dioxide 25 mEq/L (23-29); Chloride 91 mEq/L (98-107); Globulin 2.6 g/dL (2.4-3.5); Glucose 136 mg/dL (70-105); Osmolality,Calculated 263 (280-300); Potassium 3.5 mEq/L (3.5-5.1); Salicylate < 2.5 mg/dL (15.0-30.0); Sodium 126 mEq/L (136-145); Total Protein 6.8 g/dL (6.4-8.9); eGFR For African Americans > 60 (> 60); eGFR For Non-African Americans > 60 (> 60)
[2017-07-26 16:58] LABS: Troponin I < 0.03 ng/mL (< 0.04)
[2017-07-26 17:12] LABS: Thyroid Stimulating Hormone 1.024 mcIU/mL (0.340-5.600)
[2017-07-26] MEDS ORDERED: 0.9 % Sodium Chloride 1,000 ML IVC ONE (17:14)
[2017-07-26 17:25] LABS: Bilirubin,Urine Negative (Negative); Blood,Urine Negative (Negative); Clarity,Urine Clear (Clear); Color,Urine Yellow (Yellow); Glucose,Urine (UA) Normal (Normal); Ketones,Urine 15 mg/dL (Negative); Leukocyte Esterase,Urine Negative (Negative); Nitrite,Urine Negative (Negative); Protein,Urine Trace mg/dL (Neg-Trace); Specific Gravity,Urine 1.025 (1.010-1.025); Urobilinogen,Urine Normal (Normal)
[2017-07-26 17:26] LABS: Bacteria,Urine None Seen per hpf (None-Few); Hyaline Casts,Urine None Seen per lpf (None-Few); RBC,Urine 0-3 per hpf (0-3); Squamous Epithelial Cell,Urine Many per lpf (None-Few); WBC,Urine 0-3 per hpf (0-3)
[2017-07-26 17:34] LABS: Amphetamine Screen,Urine Negative ng/mL (Cutoff=1000); Barbiturate Screen,Urine Positive ng/mL (Cutoff=200); Benzodiazepines Screen,Urine Negative ng/mL (Cutoff=200); Cannabinoid Screen,Urine Negative ng/mL (Cutoff = 50); Cocaine Screen,Urine Negative ng/mL (Cutoff= 300); Opiate Screen,Urine Negative ng/mL (Cutoff=300); Phencyclidine Screen,Urine Negative ng/mL (Cutoff=25)
[2017-07-26] MEDS ORDERED: Ketorolac 15 MG/ML VIAL IVP ONE (17:46)
--- NOTE | 2017-07-26 21:48 | Internal Med History&Physical ---
Date of Encounter: 07/26/17 Time of Encounter: 21:00 Assessment and Plan (1) Hyponatremia Current visit: Yes Patient with a sodium of 126 on admission Will continue gentle IV fluids with normal saline and to monitor serial sodium levels for slow correction (2) Falls Current visit: Yes Status: Chronic Suspect secondary to orthostatic hypotension IV fluids as above Qualifiers: Encounter type: initial encounter Qualified Code(s): W19.XXXA - Unspecified fall, initial encounter (3) CHF (congestive heart failure) Current visit: No Status: Acute Will continue home dose of Lasix Qualifiers: Heart failure chronicity: unspecified Qualified Code(s): I50.9 - Heart failure, unspecified (4) Major depressive disorder with psychotic features Current visit: No Status: Acute Qualifiers: Active/Remission status: currently active Major depression episode severity : severe Qualified Code(s): F32.3 - Major depressive disorder, single episode , severe with psychotic features (5) Essential hypertension Current visit: No Status: Chronic Controlled; continue home medications (6) Morbid obesity Current visit: No Status: Acute Lifestyle modifications (7) DVT prophylaxis Current visit: No Status: Acute Subcutaneous heparin Internal Medicine - H&P: HPI Chief complaint: Fall Admitted From: Home Plans for Post Hospital Care: Home History of present illness: Patient is a 56-year-old female with past medical history significant for opioid dependence/abuse, mood disorder, CHF, DVT, hyperlipidemia and hypertension who presents to the ER on 07/26/17 due to fall. Patients parents who are present with patient at bedside reports that patient fell earlier the day of admission. Reports that patient had been more somnolent than usual over the last 24 hours. Patient reports that after standing up she felt dizzy and fell. Patient denies ever losing consciousness and denies any chest pain or other associated symptoms such as nausea/vomiting. She was brought to the ER for further evaluation. The ER, patient with no acute findings on CT of the head or CT of the spine. Patient was found to be hyponatremic with a sodium of 126. On my examination in the ER, patient with no altered mental status and was alert and oriented 3 and able to give history. Patient will be admitted to medical surgical floor for hyponatremia. Past Med Surg Social Fam HX - Past Medical History Medical history: arthritis, CHF, DVT, hyperlipidemia, hypertension Psychiatric history: anxiety, bipolar, depression - Past Surgical History Surgical History: , cholecystectomy, herniorrhaphy, hysterectomy - Social History Smoking Status: Former smoker Smokeless Tobacco Status: No Alcohol use: none Drug use: none - Family History Father Living Status: Still Living Hx Family Cardiac Disorders: Yes Mother Adopted: No Family Member Ethnicity: Non- Living Status: Still Living Hx Family Cardiac Disorders: No Hx Family Respiratory Disorders: Yes (short of breath) Hx Family Cancer: No Hx Family GI Disorders: No Hx Family Endocrine Disorder: No Hx Family Neuromuscular Disorders: No Hx Family Neurologic Disorders: No Hx Family HEENT Disorders: No Hx Family Autoimmune Disorders: Yes (hyperthyroid) Grandfather Living Status: Hx Family Cardiac Disorders: Yes Internal Medicine - H&P: Meds Chlorpromazine HCl 100 mg PO QAM 12/25/16 [History] Chlorpromazine HCl 300 mg PO HS 12/25/16 [History] OLANZapine [Zyprexa] 5 mg PO HS 12/25/16 [History] Paroxetine [Paxil] 60 mg PO DAILY 12/25/16 [History] Calcium Carbonate [Tums] 1,000 mg PO Q4HR PRN 12/27/16 [Rx] Omeprazole [PriLOSEC] 20 mg PO BIDAC #60 cap 12/27/16 [Rx] rOPINIRole [Requip] 0.25 mg PO HS 04/12/17 [History] Cefepime HCl/Dextrose, Iso-Osm [Cefepime 2 gm Injection] 2 gm IV Q8H #2 mls [Rx] Chlorhexidine Rinse 15 ml MM BID mouthwash 04/17/17 [Rx] Furosemide [Lasix] 40 mg IVP BID vial 04/17/17 [Rx] Haloperidol [Haldol] 5 mg PO QID tablet 04/17/17 [Rx] Heparin 5,000 unit SQ Q8HCO vial 04/17/17 [Rx] Ipratropium/Albuterol Neb [Duoneb] 3 ml IH [id number] inhsol 04/17/17 [Rx] Lacri-Lube [Lacri-lube] 1 appl BOTH EYES Q2HR PRN tube 04/17/17 [Rx] Lacri-Lube [Lacri-lube] 1 appl BOTH EYES Q4HR tube 04/17/17 [Rx] Levofloxacin 750 MG/150 ML [Levaquin Premix 750mg/150 mL] 750 mg IVPB DAILY #1 bag 04/17/17 [Rx] Metoprolol [Lopressor] 5 mg IVP BID vial 04/17/17 [Rx] Naloxone [Narcan] 0.4 mg IVP Q2MIN PRN inj 04/17/17 [Rx] Pantoprazole [Protonix] 40 mg IVPB DAILY vial 04/17/17 [Rx] Quetiapine Fumarate [Seroquel] 25 mg PO HS tablet 04/17/17 [Rx] methylPREDNISolone [Solu-MEDROL] 40 mg IVP Q8HR vial 04/17/17 [Rx] predniSONE [PredniSONE] 20 mg PO BID #10 tablet 05/30/17 [Rx] Naproxen 500 mg PO BID 10 Days #20 tablet 06/02/17 [Rx] 3 Allergy/AdvReac Type Severity Reaction Status Date / Time metoclopramide [From Reglan] Allergy Mild Itching Verified 06/23/17 08:54 tramadol Allergy Mild Itching Verified 06/23/17 08:54 amitriptyline Allergy Itching Verified 06/23/17 08:54 codeine Allergy Hives Verified 06/23/17 08:54 Sulfa (Sulfonamide Allergy See Verified 06/23/17 08:54 Antibiotics) Comments sulfamethoxazole Allergy See Verified 06/23/17 08:54 [From Bactrim] Comments trimethoprim [From Bactrim] Allergy See Verified 06/23/17 08:54 Comments lorazepam [From Ativan] AdvReac Mild Anxiety Verified 06/23/17 08:54 benztropine [From Cogentin] AdvReac See Verified 06/23/17 08:54 Comments ciprofloxacin [From Cipro] AdvReac See Verified 06/23/17 08:54 Comments onabotulinumtoxinA AdvReac See Verified 06/23/17 08:54 [From Botox] Comments sertraline [From Zoloft] AdvReac Headache Verified 06/23/17 08:54 sumatriptan [From Imitrex] AdvReac Agitated Verified 06/23/17 08:54 topiramate [From Topamax] AdvReac See Verified 06/23/17 08:54 Comments All Systems PM: A 10-system review of systems was performed and is negative for pertinent findings except as documented above in the HPI. - Constitutional Vitals: Temp Pulse Resp BP Pulse Ox 97.6 F 74 16 149/62 97 07/26/17 19:58 07/26/17 19:58 07/26/17 19:58 07/26/17 19:58 07/26/17 19:58 General appearance: Present: A&O X 3, no acute distress, answers questions appropriately - Head Head exam: Present: normocephalic - Eye Eye exam: Present: normal appearance - ENT ENT exam: Present: mucous membranes moist - Respiratory Respiratory exam: Present: CTAB. Absent: accessory muscle use, rales, rhonchi, wheezes - Cardiovascular Cardiovascular exam: Present: RRR, +S1, +S2. Absent: diastolic murmur, gallop, rubs, systolic murmur - GI/Abdominal GI/Abdominal exam: Present: normal bowel sounds, soft, no peritoneal signs. Absent: distended, tenderness - Extremities Exam Extremities exam: Absent: pedal edema - Neurological Exam Neurological exam: Present: oriented X3 - Psychiatric Psychiatric exam: Present: normal mood - Skin Skin exam: Present: normal color Internal Med - H&P Results - Labs CBC & Chem 7: 07/26/17 16:24 07/26/17 16:24
[2017-07-26] MEDS ORDERED: Naloxone 0.4 MG/ML INJ IVP PRN (21:53)
[2017-07-26] MEDS: *HR* Heparin 5,000 UNIT/ML VIAL SQ SCH (22:39)
[2017-07-26] MEDS: 0.9 % Sodium Chloride 1,000 ML IVC SCH (22:39)
[2017-07-27 04:22] LABS: Basophils % 0.1 %; Eosinophils # 0.1 K/mcL (0.0-0.6); Eosinophils % 0.8 %; Hematocrit 31.9 % (35.3-44.9); Hemoglobin 11.4 g/dL (11.5-15.4); Immature Granulocytes % 0.6 % (0-4); Lymphocytes # 1.5 K/mcL (0.6-4.6); Lymphocytes % 14.5 %; Mean Corpuscular HGB Conc 35.7 g/dL (31.6-35.5); Mean Corpuscular Hemoglobin 30.2 pg (28.0-33.3); Mean Corpuscular Volume 84.6 fL (83.0-100.0); Mean Platelet Volume 9.9 fL (9.4-12.4); Monocytes # 0.8 K/mcL (0.0-1.3); Monocytes % 7.3 %; Neutrophils # 7.8 K/mcL (1.6-8.9); Platelet Count 224 K/mcL (140-400); Red Blood Count 3.77 M/mcL (3.82-4.97); Red Cell Distribution Width 12.5 % (11.5-14.5); Segmented Neutrophils % 76.7 %
[2017-07-27 04:34] LABS: BUN/Creatinine Ratio 10 (6-26); Blood Urea Nitrogen 6 mg/dL (6-20); Calcium 8.4 mg/dL (8.6-10.3); Carbon Dioxide 23 mEq/L (23-29); Chloride 100 mEq/L (98-107); Glucose 106 mg/dL (70-105); Osmolality,Calculated 270 (280-300); Potassium 3.2 mEq/L (3.5-5.1); Sodium 131 mEq/L (136-145); eGFR For African Americans > 60 (> 60); eGFR For Non-African Americans > 60 (> 60)
[2017-07-27] MEDS: Acetaminophen/Butalbital/CaffeineTABLET PO PRN ×2 (06:13→15:13)
[2017-07-27] MEDS: *HR* Heparin 5,000 UNIT/ML VIAL SQ SCH ×3 (06:13→22:07)
[2017-07-27] MEDS ORDERED: Ketorolac 15 MG/ML VIAL IVP ONE (11:50)
[2017-07-27] MEDS ORDERED: *HR* Promethazine 25 MG/ML VIAL IVP ONE (11:50)
[2017-07-27] MEDS: 0.9 % Sodium Chloride 1,000 ML IVC SCH (15:16)
--- NOTE | 2017-07-27 16:24 | Internal Med Progress Note ---
Date of Encounter: 07/27/17 Time of Encounter: 13:36 - Subjective Interval history: Pt seen and examined at bedside. Reports of feeling significantly better compared to previous day. Denies any dizziness, chest pain, headache, lightheadedeness. Hyponatremia improving. Pt reports of taking multiple psych medications which could have also contributed to patient's symptoms. will verify home meds Assessment and Plan (1) Hyponatremia Current visit: Yes Improved will closely monitor, repeat level at 2000, will not correct Na more than 8meq in 24 hours. holding lasix at this time gentle IV fluids (2) Falls Current visit: Yes Status: Chronic Suspect secondary to orthostatic hypotension will obtain orthostatic vitals IV fluids as above currently asymptomatic will obtain PT evaluation Qualifiers: Encounter type: initial encounter Qualified Code(s): W19.XXXA - Unspecified fall, initial encounter (3) CHF (congestive heart failure) Current visit: No Status: Chronic holding home dose of lasix will closely monitor for volume overload clinically euvolemic at this time Qualifiers: Heart failure chronicity: unspecified Qualified Code(s): I50.9 - Heart failure, unspecified (4) Major depressive disorder with psychotic features Current visit: No Status: Chronic Qualifiers: Active/Remission status: currently active Major depression episode severity : severe Qualified Code(s): F32.3 - Major depressive disorder, single episode , severe with psychotic features (5) Essential hypertension Current visit: No Status: Chronic BP within acceptable range continue to monitor (6) Morbid obesity Current visit: No Status: Chronic Lifestyle modifications (7) DVT prophylaxis Current visit: No Status: Acute Subcutaneous heparin (8) hypokalemia Current visit: No Status: Acute K supplemented continue to monitor electrolytes and replace as needed - Constitutional Vitals: Temp Pulse Resp BP Pulse Ox 97.9 F 78 16 107/57 95 07/27/17 06:56 07/27/17 06:56 07/27/17 06:56 07/27/17 06:56 07/27/17 06:56 General appearance: Present: A&O X 3, no acute distress, obese, answers questions appropriately - Head Head exam: Present: atraumatic, normocephalic - Eye Eye exam: Present: conjuntiva pink, sclera anicteric - Respiratory Respiratory exam: Present: CTAB. Absent: accessory muscle use, rales, rhonchi, wheezes - Cardiovascular Cardiovascular exam: Present: RRR, +S1, +S2. Absent: diastolic murmur, gallop, rubs, systolic murmur - GI/Abdominal GI/Abdominal exam: Present: normal bowel sounds, soft, no peritoneal signs. Absent: distended, tenderness - Extremities Exam Extremities exam: Present: warm, radial pulses palpable and symmetrical. Absent : calf tenderness, cyanotic, pedal edema - Neurological Exam Neurological exam: Present: alert, oriented X3 - Psychiatric Psychiatric exam: Present: normal affect, normal mood Internal Medicine: Result - Labs CBC & Chem 7: 07/27/17 03:39 07/27/17 11:30 Labs: Short CBC 07/27/17 Range/Units 03:39 WBC 10.2 (4.3-11.1) K/mcL Hgb 11.4 L (11.5-15.4) g/dL Hct 31.9 L (35.3-44.9) % Plt Count 224 (140-400) K/mcL Neutrophils # 7.8 (1.6-8.9) K/mcL BMP 07/26/17 07/27/17 07/27/17 22:32 03:39 11:30 Sodium 127 L 131 L 133 L Potassium 3.2 L Chloride 100 Carbon Dioxide 23 BUN 6 Creatinine 0.59 L Glucose 106 H Calcium 8.4 L - ABG Interpretation ABG results: PT/INR, D-dimer PT 11.9 Seconds (9.4-12.1) 07/26/17 16:24 Consult Discharge Plan - Plan Referrals: Iman Monae, HOSIERY BAGGER [Primary Care Provider] -
[2017-07-27] MEDS ORDERED: Baclofen 10 MG TABLET PO PRN (17:12)
[2017-07-27] MEDS ORDERED: rOPINIRole 0.25 MG TABLET PO SCH (21:00)
[2017-07-27] MEDS ORDERED: chlorproMAZINE 25 MG TABLET PO SCH (21:00)
[2017-07-27] MEDS ORDERED: (Doxepin Hcl 10 MG) PO SCH (21:00)
[2017-07-27] MEDS: Cyprohepatdine 4 MG TABLET PO SCH (21:54)
[2017-07-27] MEDS: OXcarbazepine 150 MG TABLET PO SCH (23:14)
[2017-07-27] MEDS ORDERED: Doxepin Hcl 10 MG PO SCH (23:15)
--- NOTE | 2017-07-28 00:42 | Event Note ---
Date of Encounter: 07/27/17 Time of Encounter: 22:49 Monitoring pts. sodium level and was found to be 137. Order to discontinue IV fluids at 22:49 given. Continue to monitor pt.
[2017-07-28] MEDS: Acetaminophen/Butalbital/CaffeineTABLET PO PRN (01:37)
[2017-07-28] MEDS: *HR* Heparin 5,000 UNIT/ML VIAL SQ SCH (03:07)
[2017-07-28 06:03] LABS: Basophils # 0.1 K/mcL (0.0-0.2); Basophils % 0.8 %; Eosinophils # 0.1 K/mcL (0.0-0.6); Eosinophils % 1.6 %; Hematocrit 34.3 % (35.3-44.9); Hemoglobin 11.7 g/dL (11.5-15.4); Immature Granulocytes % 0.3 % (0-4); Lymphocytes # 2.1 K/mcL (0.6-4.6); Lymphocytes % 28.8 %; Mean Corpuscular HGB Conc 34.1 g/dL (31.6-35.5); Mean Corpuscular Hemoglobin 30.2 pg (28.0-33.3); Mean Corpuscular Volume 88.4 fL (83.0-100.0); Mean Platelet Volume 10.2 fL (9.4-12.4); Monocytes # 0.6 K/mcL (0.0-1.3); Monocytes % 8.7 %; Neutrophils # 4.4 K/mcL (1.6-8.9); Nucleated Red Blood Cells 0.3 /100 WBC (0); Platelet Count 214 K/mcL (140-400); Red Blood Count 3.88 M/mcL (3.82-4.97); Segmented Neutrophils % 59.8 %
[2017-07-28 06:36] LABS: BUN/Creatinine Ratio 9 (6-26); Blood Urea Nitrogen 7 mg/dL (6-20); Calcium 8.5 mg/dL (8.6-10.3); Carbon Dioxide 20 mEq/L (23-29); Chloride 108 mEq/L (98-107); Glucose 85 mg/dL (70-105); Magnesium 1.9 mg/dL (1.6-2.6); Osmolality,Calculated 283 (280-300); Potassium 3.9 mEq/L (3.5-5.1); Sodium 138 mEq/L (136-145); eGFR For African Americans > 60 (> 60); eGFR For Non-African Americans > 60 (> 60)
[2017-07-28] MEDS ORDERED: chlorproMAZINE 25 MG TABLET PO SCH (09:00)
[2017-07-28] MEDS ORDERED: CYPROHEPTADINE HCL 4 MG PO SCH (09:00)
[2017-07-28] MEDS ORDERED: Loratadine 10 MG TABLET PO SCH (09:00)
[2017-07-28] MEDS ORDERED: Aspirin Enteric Coated 81 MG Tablet PO SCH (09:00)
[2017-07-28] MEDS ORDERED: PAROXETINE PO SCH (09:00)
[2017-07-28] MEDS: Cyprohepatdine 4 MG TABLET PO SCH (09:53)
[2017-07-28 10:01] VITALS: BP 120/80
[2017-07-28] MEDS: OXcarbazepine 150 MG TABLET PO SCH (11:05)
--- NOTE | 2017-07-28 11:41 | Discharge Summary ---
- NOTES TO OUTPATIENT PROVIDER Notes to Outpatient Provider: Please closely monitor patient's sodium levels. She is given a prescription to get blood work done prior to follow up with PCP. Lasix was placed on hold due to hyponatremia, may resume after her follow up with PCP. Date of Encounter: 07/28/17 Time of Encounter: 10:40 - Discharge Diagnosis (1) CHF (congestive heart failure) Priority: Secondary Status: Chronic Qualifiers: Heart failure chronicity: unspecified Qualified Code(s): I50.9 - Heart failure, unspecified (2) DVT prophylaxis Priority: Secondary Status: Acute (3) Essential hypertension Priority: Secondary Status: Chronic (4) Falls Priority: Secondary Status: Chronic Qualifiers: Encounter type: initial encounter Qualified Code(s): W19.XXXA - Unspecified fall, initial encounter (5) Hypokalemia Priority: Secondary Status: Resolved (6) Hyponatremia Priority: Primary Status: Resolved (7) Major depressive disorder with psychotic features Priority: Secondary Status: Chronic Qualifiers: Active/Remission status: currently active Major depression episode severity : severe Qualified Code(s): F32.3 - Major depressive disorder, single episode , severe with psychotic features (8) Morbid obesity Priority: Secondary Status: Chronic Hospital course: Ms. Montoya is a 56 year old female with PMH of CHF, HTN, HLD, psych disorder who was admitted for symptomatic hyponatremia. Pt was started on gentle IV fluids and her home dose of lasix was placed on hold. Pt's sodium levels were closely monitored. She improved with IV fluid therapy with resolution of her presenting symptoms. At this time she is AAO x 3 and back to her baseline status. She denies any headaches, lightheadedness, dizziness, and is ambulating around her room without any distress. She is medically stable for discharge with follow up with her primary care physician. Discharge discussed with: patient, nurse, case management - Time Spent with Patient Total time spent providing and/or coordinating discharge services: Less than 30 minutes - Discharge Medications Home Medications: Aspirin 81 mg PO DAILY 07/27/17 [History] Baclofen 10 mg PO TID PRN 07/27/17 [History] Baclofen [Lioresal] 10 mg PO TID PRN 07/27/17 [History] Benadryl 25 mg PO DAILY PRN 07/27/17 [History] Chlorpromazine HCl 100 mg PO QAM 07/27/17 [History] Chlorpromazine HCl 300 mg PO HS 07/27/17 [History] Cyprohepatdine [Periactin] 4 mg PO BID 07/27/17 [History] Doxepin HCl 10 mg PO HS 07/27/17 [History] Ferrous Sulfate [Iron] 325 mg PO DAILY 07/27/17 [History] Loratadine 10 mg PO DAILY 07/27/17 [History] OXcarbazepine 600 mg PO BID 07/27/17 [History] OXcarbazepine [Oxcarbazepine] 1,200 mg PO BID 07/27/17 [History] Omeprazole [PriLOSEC] 20 mg PO BIDAC 07/27/17 [History] Paroxetine 60 mg PO DAILY 07/27/17 [History] Paroxetine [Paxil] 60 mg PO QAM 07/27/17 [History] Promethazine [Phenergan] 12.5 mg PO DAILY PRN 07/27/17 [History] Propranolol [Inderal] 10 mg PO BID 07/27/17 [History] Ropinirole HCl [Requip] 0.5 mg PO HS 07/27/17 [History] hydrOXYzine HCl [Hydroxyzine HCl] 25 - 50 mg PO BID PRN 07/27/17 [History] Allergies/Adverse Reactions: 3 Allergy/AdvReac Type Severity Reaction Status Date / Time metoclopramide [From Reglan] Allergy Mild Itching Verified 06/23/17 08:54 tramadol Allergy Mild Itching Verified 06/23/17 08:54 amitriptyline Allergy Itching Verified 06/23/17 08:54 codeine Allergy Hives Verified 06/23/17 08:54 Sulfa (Sulfonamide Allergy See Verified 06/23/17 08:54 Antibiotics) Comments sulfamethoxazole Allergy See Verified 06/23/17 08:54 [From Bactrim] Comments trimethoprim [From Bactrim] Allergy See Verified 06/23/17 08:54 Comments lorazepam [From Ativan] AdvReac Mild Anxiety Verified 06/23/17 08:54 benztropine [From Cogentin] AdvReac See Verified 06/23/17 08:54 Comments ciprofloxacin [From Cipro] AdvReac See Verified 06/23/17 08:54 Comments onabotulinumtoxinA AdvReac See Verified 06/23/17 08:54 [From Botox] Comments sertraline [From Zoloft] AdvReac Headache Verified 06/23/17 08:54 sumatriptan [From Imitrex] AdvReac Agitated Verified 06/23/17 08:54 topiramate [From Topamax] AdvReac See Verified 06/23/17 08:54 Comments Date of admission: 07/27/17 16:18 Primary care physician: Iman Monae CNP Discharging clinician: Brigid Parker Anticipated date of discharge: 07/28/17 - Constitutional Vitals: Temp Pulse Resp BP Pulse Ox 97.7 F 92 17 120/80 95 07/28/17 09:56 07/28/17 09:56 07/28/17 09:56 07/28/17 09:56 07/28/17 09:56 General appearance: Present: A&O X 3, no acute distress, obese, answers questions appropriately - Head Head exam: Present: atraumatic, normocephalic - Eye Eye exam: Present: conjuntiva pink, sclera anicteric - Respiratory Respiratory exam: Present: CTAB. Absent: respiratory distress, wheezes - Cardiovascular Cardiovascular exam: Present: RRR, +S1, +S2. Absent: diastolic murmur, gallop, rubs, systolic murmur - GI/Abdominal GI/Abdominal exam: Present: normal bowel sounds, soft, no peritoneal signs. Absent: distended, tenderness - Extremities Exam Extremities exam: Present: warm, radial pulses palpable and symmetrical. Absent : calf tenderness, cyanotic, pedal edema - Neurological Exam Neurological exam: Present: alert, oriented X3 - Psychiatric Psychiatric exam: Present: normal affect, normal mood - Patient Status Disposition: Home, Self-Care Condition: Good Functional capacity at discharge: independent ambulation Overall status at discharge: patient is back to baseline - Ambulatory Orders Ambulatory Orders: Basic Metabolic Panel [CHEM] Time Frame: 5 Days, Facility: [facility] [place], Location: Lab - Discharge Instructions Follow Up With: Iman Monae CNP [Primary Care Provider] - (web request sent on 07/28/17) Additional Instructions: Please follow up with your primary care physician within five days after your discharge from the hospital. Please obtain the prescribed lab work prior to your appointment with your primary care physician to monitor your sodium levels. Please continue to hold your lasix until your follow up with your primary care physician. Please closely monitor your blood pressure at home. Hold your home dose of Propranolol for systolic blood pressure less than 100. Resume all other medications as prescribed by your primary care physician. - Diet and Activity Activity: increase activity as tolerated Diet: low fat, low cholesterol, low salt diet
--- NOTE | 2017-07-28 12:35 | Electrocardiograph Report ---
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
== END 2017-07-28 13:36 | disposition home or self-care (01) | DRG 641 ==
LOC: 2ANU 15:50 → EMEROO 15:50 → SUATTDRO 19:10 → 2ANU 19:54
PROVIDERS: ADMIT Internal Medicine; ATTEND Internal Medicine

== ENCOUNTER 2017-12-24 10:10 | Observation (INO) ==
--- NOTE | 2017-12-24 13:03 | Emergency Department Note ---
START Narrative - START START: I examined this patient and my medical decision-making was reviewed with the Resident Physician. I agree with the documented findings, disposition and treatment plan as described except to the extent set forth below. Findings consistent with possible stroke. Symptom onset was yesterday, she complains of difficulty with speech and difficulty finding words. I discussed the case with Dr. Yen who will be assuming care of this patient and admitting the patient to the hospital.
[2017-12-24] MEDS ORDERED: Naloxone 0.4 MG/ML INJ IVP PRN (13:56)
[2017-12-24] MEDS ORDERED: Acetaminophen 325 MG TABLET PO PRN (13:56)
--- NOTE | 2017-12-24 14:10 | Internal Med History&Physical ---
Date of Encounter: 12/24/17 Time of Encounter: 13:35 Internal Medicine - H&P: HPI Chief complaint: light headedness, near syncope Admitted From: Emergency Dept Plans for Post Hospital Care: Home History of present illness: Ms. Montoya is a 57 year old female who presents with complaints of lightheadedness, dizziness, near syncopal spell last night, and generalized weakness. She denies any focal weakness or numbness, but she had some difficulty speaking earlier. CT of the head is negative. Patient and her significant other state her symptoms are likely from her history of complex migraines and also medication side effects. She is on multiple medications which can cause mind altering effects. EKG was performed and is abnormal with significant T-wave inversion and ST depression in the anterolateral barakat of her precordium. This is old as same findings were noted in old EKG. However, given her clinical presentation, we are going to admit her and proceed with cardiac and syncopal workup. Patient is agreeable. She denies any fevers, chills, cough, vomiting, or diarrhea. She denies any lightheadedness or dizziness now. She is not diabetic and denies any episodes of hypoglycemia. Past Med Surg Social Fam HX - Past Medical History Attestation: Yes The following information was validated with the patient. Source: patient, old records reviewed, obtained from family Medical history: arthritis, migraine Additional medical history: pt denies any history Psychiatric history: anxiety, bipolar, depression - Past Surgical History Surgical History: , cholecystectomy, herniorrhaphy, hysterectomy Additional surgical history: Lung BX- right. - Social History Smoking Status: Former smoker Smokeless Tobacco Status: No Alcohol use: none Drug use: none Current living situation: Home, With Family Activity Level: Independent ambulation Recent Out of Country Travel Within the Last 8 Weeks: No - Family History Father Living Status: Still Living Hx Family Cardiac Disorders: Yes Mother Adopted: No Family Member Ethnicity: Non- Living Status: Still Living Hx Family Cardiac Disorders: No Hx Family Respiratory Disorders: Yes (short of breath) Hx Family Cancer: No Hx Family GI Disorders: No Hx Family Endocrine Disorder: No Hx Family Neuromuscular Disorders: No Hx Family Neurologic Disorders: No Hx Family HEENT Disorders: No Hx Family Autoimmune Disorders: Yes (hyperthyroid) Grandfather Living Status: Hx Family Cardiac Disorders: Yes Internal Medicine - H&P: Meds Aspirin [Lo-Dose Aspirin EC] 81 mg PO DAILY 12/24/17 [History] Baclofen [Lioresal] 10 mg PO TID 12/24/17 [History] Chlorpromazine HCl 400 mg PO HS 12/24/17 [History] Diltiazem SR (12hr) [Cardizem SR] 60 mg PO QAM 12/24/17 [History] DiphenhydraMINE [Benadryl] 25 - 50 mg PO HS PRN 12/24/17 [History] Doxepin HCl 300 mg PO HS 12/24/17 [History] Nabumetone [Relafen] 500 mg PO TID 12/24/17 [History] Omeprazole [PriLOSEC] 40 mg PO DAILY 12/24/17 [History] PARoxetine HCl [Paroxetine HCl] 60 mg PO DAILY 12/24/17 [History] Promethazine HCl 12.5 mg PO DAILY PRN 12/24/17 [History] Propranolol [Inderal] 10 mg PO BID 12/24/17 [History] Ropinirole HCl [Requip] 0.5 mg PO HS 12/24/17 [History] hydrOXYzine HCl [Hydroxyzine HCl] 25 - 50 mg PO BID 12/24/17 [History] 3 Allergy/AdvReac Type Severity Reaction Status Date / Time metoclopramide [From Reglan] Allergy Mild Itching Verified 11/03/17 14:57 tramadol Allergy Mild Itching Verified 11/03/17 14:57 amitriptyline Allergy Itching Verified 11/03/17 14:57 codeine Allergy Hives Verified 11/03/17 14:57 Sulfa (Sulfonamide Allergy See Verified 11/03/17 14:57 Antibiotics) Comments sulfamethoxazole Allergy See Verified 11/03/17 14:57 [From Bactrim] Comments trimethoprim [From Bactrim] Allergy See Verified 11/03/17 14:57 Comments lorazepam [From Ativan] AdvReac Mild Anxiety Verified 11/03/17 14:57 benztropine [From Cogentin] AdvReac See Verified 11/03/17 14:57 Comments ciprofloxacin [From Cipro] AdvReac See Verified 11/03/17 14:57 Comments onabotulinumtoxinA AdvReac See Verified 11/03/17 14:57 [From Botox] Comments sertraline [From Zoloft] AdvReac Headache Verified 11/03/17 14:57 sumatriptan [From Imitrex] AdvReac Agitated Verified 11/03/17 14:57 topiramate [From Topamax] AdvReac See Verified 11/03/17 14:57 Comments - Constitutional Constitutional: no chills, no fever(s), no lethargy - EENT Eyes: no blurry vision, no change in vision Ears: no ear pain, no tinnitus Nose, mouth and throat: no nasal congestion, no sore throat - Cardiovascular Cardiovascular ROS IM: lightheadedness, no chest pain, no diaphoresis, no dyspnea, no dyspnea on exertion, no palpitations, no paroxysmal nocturnal dyspnea, no syncope - Respiratory Respiratory: no cough, no hemoptysis, no chest congestion, no excessive phlegm production, no change in phlegm color - Gastrointestinal Gastrointestinal: no abdominal pain, no hematemesis, no melena, no nausea, no vomiting - Genitourinary Genitourinary: no dysuria, no flank pain - Musculoskeletal Musculoskeletal ROS IM: no arthralgias, no back pain - Integumentary Integumentary IM: no rash, no jaundice - Neurological Neurological ROS: dizziness, headache(s), weakness, no confusion, no convulsions , no focal weakness, no frequent falls, no numbness, no paresthesias, no vertigo - Psychiatric Psychiatric: no anxiety - Endocrine Endocrine IM: no polydipsia, no polyuria - Allergic/Immunologic Allergic/Immunologic: no wheezing - Constitutional Vitals: Temp Pulse Resp BP Pulse Ox 97.1 F L 82 16 110/55 95 12/24/17 12:55 12/24/17 13:51 12/24/17 13:51 12/24/17 13:51 12/24/17 13:51 General appearance: Present: cooperative, A&O X 3, pleasant, no acute distress, answers questions appropriately Exam: see below - Head Head exam: Present: atraumatic, normal inspection - Eye Eye exam: Present: EOMI, PERRL. Absent: scleral icterus Pupils: Present: normal accommodation - ENT ENT exam: Present: mucous membranes dry, normal exam, normal oropharynx - Neck Neck exam general surgery: Present: full ROM, supple. Absent: tenderness, nuchal rigidity, thyromegaly - Respiratory Respiratory exam: Present: CTAB. Absent: chest wall tenderness, rales, rhonchi , wheezes - Cardiovascular Cardiovascular exam: Present: RRR, +S1, +S2. Absent: diastolic murmur, systolic murmur - GI/Abdominal GI/Abdominal exam: Present: normal bowel sounds, soft. Absent: mass, splenomegaly, tenderness - Extremities Exam Extremities exam: Present: calf tenderness, warm, radial pulses palpable and symmetrical. Absent: joint swelling, pedal edema, tenderness - Back Exam Back exam: Absent: CVA tenderness (L), CVA tenderness (R) - Neurological Exam Neurological exam: Present: alert, CN II-XII intact, oriented X3, no focal deficits - Psychiatric Psychiatric exam: Present: normal affect, normal mood - Skin Skin exam: Present: dry, intact, warm Internal Med - H&P Results - EKG Data -: EKG Interpreted by Myself - EKG Data EKG comments: 12/24/17 14:38 [address] inversion and [address]-T depression anterior precordium - Impressions ITS Impressions Chest X-Ray 12/24/17 10:52 IMPRESSION: Cardiomegaly with asymmetric bilateral interstitial and airspace disease right greater than left. Correlate clinical evidence of multifocal infection or asymmetric edema. D/ / 12/24/2017 13:53:04 Charles Plascencia MD / [facility] Interpreting Provider: Charles Plascencia MD Head CT 12/24/17 12:49 IMPRESSION: No acute intracranial abnormality. D/ / Deni Parker MD / Deni Parker MD Interpreting Provider: Deni Parker MD - Diagnostic Studies Chest x-ray Status: image reviewed by me (cardiomegaly nad right sided infiltrates) - Assessment and plan (1) Near syncope Current Visit: Yes Status: Acute Assessment and plan: 1. Will trend troponins, EKG's, glucose check, and vitals. 2. Will monitor on telemetry. 3. Will order ECHO. 4. Patient denies chest pain, but will consult cardiology given EKG changes. (2) Pneumonia Current Visit: Yes Status: Acute Assessment and plan: 1. After reviewing xray, I questioned patient about pneumonia symptoms again. She initially denied, but she then admitted to productive cough, mild SOB, and subjective fevers. 2. Will order blood cultures and start Rocephin and Zithromax. 3. Oxygen as needed. Qualifiers: Pneumonia type: due to unspecified organism Laterality: right Lung location: lower lobe of lung Qualified Code(s): J18.1 - Lobar pneumonia, unspecified organism (3) Abnormal EKG Current Visit: Yes Status: Acute Assessment and plan: 1. Trend troponins and EKG's. 2. Cardiology consult as above. 3. No symptoms of angina. (4) DVT prophylaxis Current Visit: Yes Status: Acute Assessment and plan: 1. Heparin SQ.
[2017-12-24] MEDS ORDERED: Acetaminophen/Butalbital/CaffeineTABLET PO PRN (14:40)
[2017-12-24 14:45] LABS: BUN/Creatinine Ratio 14 (6-26); Blood Urea Nitrogen 10 mg/dL (6-20); Calcium 8.5 mg/dL (8.6-10.3); Carbon Dioxide 23 mEq/L (23-29); Chloride 109 mEq/L (98-107); Glucose 96 mg/dL (70-105); Osmolality,Calculated 285 (280-300); Potassium 3.8 mEq/L (3.5-5.1); Sodium 138 mEq/L (136-145); Troponin I < 0.03 ng/mL (< 0.04); eGFR For Non-African Americans > 60 (> 60)
[2017-12-24] MEDS ORDERED: cefTRIAXone 1,000 MG in Water for inj. (sterile) 20 ML 10 ML IVP SCH (15:00)
[2017-12-24 15:15] LABS: Basophils % 0.2 %; Eosinophils # 0.2 K/mcL (0.0-0.6); Eosinophils % 1.8 %; Hematocrit 37.2 % (35.3-44.9); Hemoglobin 12.3 g/dL (11.5-15.4); Immature Granulocytes % 0.5 % (0-4); Lymphocytes % 9.3 %; Mean Corpuscular HGB Conc 33.1 g/dL (31.6-35.5); Mean Corpuscular Hemoglobin 30.4 pg (28.0-33.3); Mean Corpuscular Volume 92.1 fL (83.0-100.0); Mean Platelet Volume 9.2 fL (9.4-12.4); Monocytes # 0.6 K/mcL (0.0-1.3); Monocytes % 5.2 %; Neutrophils # 9.3 K/mcL (1.6-8.9); Platelet Count 237 K/mcL (140-400); Red Blood Count 4.04 M/mcL (3.82-4.97); Red Cell Distribution Width 13.2 % (11.5-14.5)
[2017-12-24] MEDS: Azithromycin 500 MG in D5% in Water 250 ML IVPB SCH (17:25)
[2017-12-24] MEDS: 0.9 % Sodium Chloride 1,000 ML IVC SCH (17:34)
[2017-12-24] MEDS: *HR* Heparin 5,000 UNIT/ML VIAL SQ SCH (17:34)
[2017-12-24] MEDS: cefTRIAXone 1,000 MG in Water for inj. (sterile) 20 ML 10 ML IVP SCH (17:38)
[2017-12-24] MEDS: Ibuprofen 400 MG TABLET PO PRN (21:01)
[2017-12-24] MEDS ORDERED: Melatonin 3 MG TABLET PO PRN (22:57)
[2017-12-24] MEDS: traMADol 50 MG TABLET PO PRN (23:21)
[2017-12-25 01:32] LABS: Basophils % 0.3 %; Eosinophils # 0.3 K/mcL (0.0-0.6); Eosinophils % 2.7 %; Hematocrit 34.8 % (35.3-44.9); Hemoglobin 11.3 g/dL (11.5-15.4); Immature Granulocytes % 0.4 % (0-4); Lymphocytes # 1.3 K/mcL (0.6-4.6); Mean Corpuscular HGB Conc 32.5 g/dL (31.6-35.5); Mean Corpuscular Hemoglobin 29.9 pg (28.0-33.3); Mean Corpuscular Volume 92.1 fL (83.0-100.0); Mean Platelet Volume 9.5 fL (9.4-12.4); Monocytes # 0.7 K/mcL (0.0-1.3); Monocytes % 6.9 %; Neutrophils # 7.4 K/mcL (1.6-8.9); Platelet Count 219 K/mcL (140-400); Red Blood Count 3.78 M/mcL (3.82-4.97); Red Cell Distribution Width 13.2 % (11.5-14.5); Segmented Neutrophils % 76.7 %
[2017-12-25 01:37] LABS: Prothrombin Time 11.7 Seconds (9.4-12.1)
[2017-12-25 01:40] LABS: Activated Partial Thrombo Time 30.5 Seconds (26.0-36.0)
[2017-12-25 01:52] LABS: BUN/Creatinine Ratio 14 (6-26); Blood Urea Nitrogen 9 mg/dL (6-20); Calcium 8.4 mg/dL (8.6-10.3); Carbon Dioxide 23 mEq/L (23-29); Chloride 109 mEq/L (98-107); Chol/HDL Ratio 3.3 (0-4.9); Cholesterol 197 mg/dL (< 200); Glucose 112 mg/dL (70-105); HDL Cholesterol 60 mg/dL (40-59); LDL Cholesterol,Calculated 113 mg/dL (0-99); Magnesium 1.9 mg/dL (1.6-2.6); Osmolality,Calculated 289 (280-300); Potassium 3.4 mEq/L (3.5-5.1); Sodium 140 mEq/L (136-145); Triglycerides 122 mg/dL (< 150); eGFR For Non-African Americans > 60 (> 60)
[2017-12-25] MEDS: *HR* Heparin 5,000 UNIT/ML VIAL SQ SCH (07:03)
[2017-12-25] MEDS: 0.9 % Sodium Chloride 1,000 ML IVC SCH (07:04)
[2017-12-25] MEDS: Ibuprofen 400 MG TABLET PO PRN (08:02)
[2017-12-25] MEDS: cefTRIAXone 1,000 MG in Water for inj. (sterile) 20 ML 10 ML IVP SCH (08:02)
--- NOTE | 2017-12-25 08:29 | Cardiology Consult Note ---
Date of Encounter: 12/25/17 Time of Encounter: 09:11 Assessment and Plan (1) Abnormal EKG Current Visit: Yes Status: Chronic (2) Near syncope Current Visit: Yes Status: Acute Discussion w patient/family: Pt has had several EKGs that were unchanged from previous records since presentation to the ED. She has had the ST segment depressions and T wave inversions on the anterior leads in all EKGs dating back to 2014. Her troponin was negative x3. TTE shows mild diastolic dysfunction of the LV with normal RV function and an EF of 65%. Orthostatic vital signs are normal. Due to her history of dizziness and polypharmacy, it is unlikely that there is a cardiac cause of her falls without syncope. The assessment and plan as outlined above was discussed with the patient and/or family members who expressed understanding and agreement. All questions were answered. Thank you for involving us in the care of your patient. Please call with any questions. History of Present Illness Consult date: 12/25/17 Requesting physician: Fei Tovar Consult reason: EKG changes, presyncope Chief complaint: lightheadedness, near syncope History of present illness: Ms. Montoya is a 57 year old female with PMHx of COPD, CHF, and polypharmacy who presented to the ED last night with the CC of dizziness. She has been dizzy for the past 2 days and this has caused her to fall once and to almost fall several other times. She states the dizziness makes her feel lightheaded and weak. She has never been dizzy like this before. It does not get better or worse when she stands up and walks around. She did not hit her head or lose consciousness when she fell two nights ago. She has never had a syncopal episode before. Currently she complains of upper back pain and dizziness. She denies family history of sudden without known cause and arrhythmias but states she has family members with a history of CHF and NC. Past Med Surg Social Fam HX - Past Medical History Attestation: Yes The following information was validated with the patient. Source: patient Medical history: arthritis, migraine Additional medical history: pt denies any history Psychiatric history: anxiety, bipolar, depression - Past Surgical History Surgical History: , cholecystectomy, herniorrhaphy, hysterectomy Additional surgical history: Lung BX- right. - Social History Smoking Status: Former smoker Smokeless Tobacco Status: No Alcohol use: none Drug use: none - Family History Father Living Status: Still Living Hx Family Cardiac Disorders: Yes (heart disease) Mother Adopted: No Family Member Ethnicity: Non- Living Status: Still Living Hx Family Cardiac Disorders: No Hx Family Respiratory Disorders: Yes (short of breath) Hx Family Cancer: No Hx Family GI Disorders: No Hx Family Endocrine Disorder: No Hx Family Neuromuscular Disorders: No Hx Family Neurologic Disorders: No Hx Family HEENT Disorders: No Hx Family Autoimmune Disorders: Yes (hyperthyroid) Grandfather Living Status: Hx Family Cardiac Disorders: Yes Medications and Allergies Aspirin [Lo-Dose Aspirin EC] 81 mg PO DAILY 12/24/17 [History] Baclofen [Lioresal] 10 mg PO TID 12/24/17 [History] Chlorpromazine HCl 400 mg PO HS 12/24/17 [History] Diltiazem SR (12hr) [Cardizem SR] 60 mg PO QAM 12/24/17 [History] DiphenhydraMINE [Benadryl] 25 - 50 mg PO HS PRN 12/24/17 [History] Doxepin HCl 300 mg PO HS 12/24/17 [History] Nabumetone [Relafen] 500 mg PO TID 12/24/17 [History] Omeprazole [PriLOSEC] 40 mg PO DAILY 12/24/17 [History] PARoxetine HCl [Paroxetine HCl] 60 mg PO DAILY 12/24/17 [History] Promethazine HCl 12.5 mg PO DAILY PRN 12/24/17 [History] Propranolol [Inderal] 10 mg PO BID 12/24/17 [History] Ropinirole HCl [Requip] 0.5 mg PO HS 12/24/17 [History] hydrOXYzine HCl [Hydroxyzine HCl] 25 - 50 mg PO BID 12/24/17 [History] 3 Allergy/AdvReac Type Severity Reaction Status Date / Time metoclopramide [From Reglan] Allergy Mild Itching Verified 11/03/17 14:57 tramadol Allergy Mild Itching Verified 11/03/17 14:57 amitriptyline Allergy Itching Verified 11/03/17 14:57 codeine Allergy Hives Verified 11/03/17 14:57 Sulfa (Sulfonamide Allergy See Verified 11/03/17 14:57 Antibiotics) Comments sulfamethoxazole Allergy See Verified 11/03/17 14:57 [From Bactrim] Comments trimethoprim [From Bactrim] Allergy See Verified 11/03/17 14:57 Comments lorazepam [From Ativan] AdvReac Mild Anxiety Verified 11/03/17 14:57 benztropine [From Cogentin] AdvReac See Verified 11/03/17 14:57 Comments ciprofloxacin [From Cipro] AdvReac See Verified 11/03/17 14:57 Comments onabotulinumtoxinA AdvReac See Verified 11/03/17 14:57 [From Botox] Comments sertraline [From Zoloft] AdvReac Headache Verified 11/03/17 14:57 sumatriptan [From Imitrex] AdvReac Agitated Verified 11/03/17 14:57 topiramate [From Topamax] AdvReac See Verified 11/03/17 14:57 Comments All Systems Review: The remainder of the systems were reviewed and are negative - Constitutional Constitutional: headache(s), weakness, no fatigue, no fever(s), no frequent falls - EENT Eyes: no blurred vision, no loss of vision - Cardiovascular Cardiovascular: dyspnea at rest, dyspnea on exertion, no chest pain at rest, no chest pain with exertion, no irregular heart rhythm, no leg edema, no lightheadedness, no palpitations - Respiratory Respiratory: cough, dyspnea, no wheezing - Gastrointestinal Gastrointestinal: no abdominal pain, no diarrhea, no nausea - Genitourinary Genitourinary: no dysuria, no hematuria - Musculoskeletal Musculoskeletal: back pain, muscle weakness, no muscle cramps - Integumentary Integumentary: no erythema, no rash, no unusual bruising - Neurological Neurological: abnormal speech, dizziness, no focal weakness, no memory loss, no numbness Physical Examination Vital Signs, Last 4 Hours Temp Pulse Resp BP Pulse Ox 12/25/17 07:15 97.8 F 88 16 123/74 96 12/25/17 04:29 97.4 F L 82 15 129/84 96 General: Conversant, No Apparent Distress HEENT: Atraumatic, Normocephaly, Mucus Membranes Moist Neck: Normal carotid pulses, Other (JVD to level of jaw) Cardiac: Reg Rate and Rhythm, Normal S1 and S2, No Murmur Lungs: Normal Breath Sounds, No Wheeze, Rales, Rhonchi Neuro: Alert and responsive, No focal deficits noted Abdomen: Soft, Non-Tender Skin: No rashes noted on visualized skin Musculoskeletal: No Chest Wall Tenderness Extremities: No Cyanosis, No Edema, Normal Pulses Results 12/25/17 01:16 12/25/17 01:16 Lab Results 12/24/17 12/24/17 12/24/17 15:01 17:32 23:01 WBC 11.2 H Hgb 12.3 Hct 37.2 Plt Count 237 INR APTT Sodium Potassium Chloride Carbon Dioxide BUN Creatinine Glucose Calcium Magnesium Troponin I < 0.03 < 0.03 12/25/17 12/25/17 12/25/17 01:16 01:16 01:16 WBC 9.7 Hgb 11.3 L Hct 34.8 L Plt Count 219 INR 1.0 APTT 30.5 Sodium 140 Potassium 3.4 L Chloride 109 H Carbon Dioxide 23 BUN 9 Creatinine 0.65 Glucose 112 H Calcium 8.4 L Magnesium 1.9 Troponin I 12/25/17 05:26 WBC Hgb Hct Plt Count INR APTT Sodium Potassium Chloride Carbon Dioxide BUN Creatinine Glucose Calcium Magnesium Troponin I < 0.03 Consult Discharge Plan - Plan Referrals: Iman Monae, [facility] [Primary Care Provider] -
[2017-12-25] MEDS ORDERED: Baclofen 10 MG TABLET PO SCH (09:00)
[2017-12-25] MEDS ORDERED: Aspirin Enteric Coated 81 MG Tablet PO SCH (09:00)
[2017-12-25] MEDS ORDERED: Diltiazem SR (12hr) 60 MG CAPSULE PO SCH (09:00)
[2017-12-25 10:57] VITALS: BP 134/79
[2017-12-25] MEDS: traMADol 50 MG TABLET PO PRN (11:02)
--- NOTE | 2017-12-25 15:24 | Discharge Summary ---
- NOTES TO OUTPATIENT PROVIDER Notes to Outpatient Provider: Follow-up with primary care provider Date of Encounter: 12/25/17 Time of Encounter: 11:00 - Discharge Diagnosis (1) Near syncope Priority: Primary Status: Acute (2) Abnormal EKG Priority: Primary Status: Chronic Hospital course: Patient is a 57-year-old female with past medical history significant for migraine headaches bipolar depression and anxiety who presented to the ER due to change in speech and near syncopal episode. In the ER, patient was found to have EKG changes; head CT showed no acute findings. During patients hospital stay cardiology was consulted discovered that EKG changes were chronic since 2014. Patient with no further symptoms or episodes so will be discharged to follow-up with primary care provider. - Time Spent with Patient Total time spent providing and/or coordinating discharge services: Less than 30 minutes - Discharge Medications Home Medications: Aspirin [Lo-Dose Aspirin EC] 81 mg PO DAILY 12/24/17 [History] Baclofen [Lioresal] 10 mg PO TID 12/24/17 [History] Chlorpromazine HCl 400 mg PO HS 12/24/17 [History] Diltiazem SR (12hr) [Cardizem SR] 60 mg PO QAM 12/24/17 [History] DiphenhydraMINE [Benadryl] 25 - 50 mg PO HS PRN 12/24/17 [History] Doxepin HCl 300 mg PO HS 12/24/17 [History] Nabumetone [Relafen] 500 mg PO TID 12/24/17 [History] Omeprazole [PriLOSEC] 40 mg PO DAILY 12/24/17 [History] PARoxetine HCl [Paroxetine HCl] 60 mg PO DAILY 12/24/17 [History] Promethazine HCl 12.5 mg PO DAILY PRN 12/24/17 [History] Propranolol [Inderal] 10 mg PO BID 12/24/17 [History] Ropinirole HCl [Requip] 0.5 mg PO HS 12/24/17 [History] hydrOXYzine HCl [Hydroxyzine HCl] 25 - 50 mg PO BID 12/24/17 [History] Allergies/Adverse Reactions: 3 Allergy/AdvReac Type Severity Reaction Status Date / Time metoclopramide [From Reglan] Allergy Mild Itching Verified 11/03/17 14:57 tramadol Allergy Mild Itching Verified 11/03/17 14:57 amitriptyline Allergy Itching Verified 11/03/17 14:57 codeine Allergy Hives Verified 11/03/17 14:57 Sulfa (Sulfonamide Allergy See Verified 11/03/17 14:57 Antibiotics) Comments sulfamethoxazole Allergy See Verified 11/03/17 14:57 [From Bactrim] Comments trimethoprim [From Bactrim] Allergy See Verified 11/03/17 14:57 Comments lorazepam [From Ativan] AdvReac Mild Anxiety Verified 11/03/17 14:57 benztropine [From Cogentin] AdvReac See Verified 11/03/17 14:57 Comments ciprofloxacin [From Cipro] AdvReac See Verified 11/03/17 14:57 Comments onabotulinumtoxinA AdvReac See Verified 11/03/17 14:57 [From Botox] Comments sertraline [From Zoloft] AdvReac Headache Verified 11/03/17 14:57 sumatriptan [From Imitrex] AdvReac Agitated Verified 11/03/17 14:57 topiramate [From Topamax] AdvReac See Verified 11/03/17 14:57 Comments Date of admission: 12/24/17 14:49 Primary care physician: Iman Monae CNP Consults: 12/24/17 17:11 Consult to Pastoral Services [CONS] Routine Comment: admission consult/pt request 12/25/17 08:15 Consult to Cardiology [CONS] Routine Comment: Consulting Provider: Cardiology Patty Reason for Consult: Syncopal episode with EKG changes Call Completed: No - Constitutional Vitals: Temp Pulse Resp BP Pulse Ox 97.9 F 86 18 134/79 96 12/25/17 10:56 12/25/17 10:56 12/25/17 10:56 12/25/17 10:56 12/25/17 10:56 General appearance: Present: cooperative, A&O X 3, pleasant, no acute distress, answers questions appropriately Exam: See below - Respiratory Respiratory exam: Present: CTAB. Absent: accessory muscle use, rales, rhonchi, wheezes - Cardiovascular Cardiovascular exam: Present: RRR, +S1, +S2. Absent: diastolic murmur, gallop, rubs, systolic murmur - Patient Status Disposition: Home, Self-Care Condition: Good - Discharge Instructions Follow Up With: Iman Monae CNP [Primary Care Provider] - 01/01/18 10:30 am Forms: ED Satisfaction Letter Additional Instructions: Go to nearest emergency room for any new or worsening symptoms. Followup with Iman Monae CNP 01/01/18 @ 10:30am.
[2017-12-25] MEDS: Azithromycin 500 MG in D5% in Water 250 ML IVPB SCH (15:41)
[2017-12-25] MEDS ORDERED: rOPINIRole 0.25 MG TABLET PO SCH (21:00)
[2017-12-25] MEDS ORDERED: chlorproMAZINE 25 MG TABLET PO SCH (21:00)
--- NOTE | 2017-12-29 12:55 | Electrocardiograph Report ---
[address] [place], [place] [address] Test Date: 2017-12-25 Pat Name: Angela Montoya Department: 114 Room: [facility] Gender: F [employer]: : 1960 Requested By: Wade Yen Order Number: [id number] Reading MD: Gurinder Melo Measurements Intervals [place] Rate: 82 P: 40 HI: 159 QRS: -6 QRSD: 98 T: 7 QT: 397 QTc: 436 Interpretive Statements SINUS RHYTHM LOW QRS VOLTAGE IN PRECORDIAL LEADS POSSIBLE ANTERIOR MYOCARDIAL INFARCTION, OF INDETERMINATE AGE Electronically Signed On 12-29-2017 12:53:30 EDT by Gurinder Melo
--- NOTE | 2017-12-29 14:31 | Electrocardiograph Report ---
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
== END 2017-12-25 17:30 | disposition home or self-care (01) ==
LOC: EMEROOARM 10:10 → 2NENU 14:49 → INTOOBSV 14:49 → SUATTDRO 14:49 → 3NENU 15:22
PROVIDERS: ADMIT Student in an Organized Health Care Education/Training Program; ATTEND Hospitalist

== ENCOUNTER 2017-12-29 02:55 | Observation (INO) ==
[2017-12-29] MEDS ORDERED: 0.9 % Sodium Chloride 1,000 ML IVC ONE (03:04)
[2017-12-29 03:59] LABS: Basophils % 0.4 %; Eosinophils # 0.3 K/mcL (0.0-0.6); Hematocrit 31.9 % (35.3-44.9); Hemoglobin 10.5 g/dL (11.5-15.4); Immature Granulocytes % 0.5 % (0-4); Lymphocytes # 0.9 K/mcL (0.6-4.6); Lymphocytes % 8.1 %; Mean Corpuscular HGB Conc 32.9 g/dL (31.6-35.5); Mean Corpuscular Hemoglobin 29.4 pg (28.0-33.3); Mean Corpuscular Volume 89.4 fL (83.0-100.0); Monocytes # 0.6 K/mcL (0.0-1.3); Monocytes % 5.5 %; Neutrophils # 9.2 K/mcL (1.6-8.9); Platelet Count 251 K/mcL (140-400); Red Blood Count 3.57 M/mcL (3.82-4.97); Red Cell Distribution Width 13.1 % (11.5-14.5); Segmented Neutrophils % 82.5 %
--- NOTE | 2017-12-29 04:09 | Emergency Department Note ---
Disposition Clinical Impression: Pneumonia Qualifiers: Pneumonia type: due to unspecified organism Laterality: right Lung location: unspecified part of lung Qualified Code(s): J18.9 - Pneumonia, unspecified organism Disposition: Admitted As Inpatient Condition: Good General Adult HPI - General Chief complaint: ED General Medical Stated complaint: "confused" Time Seen by Provider: 12/29/17 03:04 Source: patient, EMS Mode of arrival: private vehicle Limitations: altered mental status Nursing Notes Reviewed: Yes Vital Signs Reviewed: Yes - History of Present Illness HPI Narrative: 57-year-old female presents via EMS for evaluation of possible EtOH withdrawal. EMS states the second time there called for her on the stay, the first time was for lift assist in this time it was 4 confusion. EMS also states there is a lot of polypharmacy going on with her. Patient states she went to the emergency department because she was "confused" and "my feet jump". She states last 2 days she has felt horribly confused, she states she is having trouble finding words, she states people are having difficulty understanding her she is unable to speak clearly. Patient denies ever happening to drink, she denies drug use. Patient denies recent illness, fever, chills, shortness of breath, coughing, abdominal pain, nausea, vomiting, diarrhea, genitourinary issues. Pain Scale: 0 - Related Data Home Medications Medication Instructions Recorded Confirmed Aspirin [Lo-Dose Aspirin EC] 81 mg PO DAILY 12/24/17 12/24/17 Baclofen [Lioresal] 10 mg PO TID 12/24/17 12/29/17 Chlorpromazine HCl 400 mg PO HS 12/24/17 12/29/17 Diltiazem SR (12hr) [Cardizem SR] 60 mg PO QAM 12/24/17 12/24/17 DiphenhydraMINE [Benadryl] 25 - 50 mg PO HS PRN 12/24/17 12/24/17 Doxepin HCl 300 mg PO HS 12/24/17 12/29/17 Nabumetone [Relafen] 500 mg PO TID 12/24/17 12/24/17 Omeprazole [PriLOSEC] 40 mg PO DAILY 12/24/17 12/24/17 PARoxetine HCl [Paroxetine HCl] 60 mg PO DAILY 12/24/17 12/29/17 Promethazine HCl 12.5 mg PO DAILY PRN 12/24/17 12/24/17 Propranolol [Inderal] 10 mg PO BID 12/24/17 12/24/17 Ropinirole HCl [Requip] 0.5 mg PO HS 12/24/17 12/29/17 hydrOXYzine HCl [Hydroxyzine HCl] 25 - 50 mg PO BID 12/24/17 12/24/17 Allergies Allergy/AdvReac Type Severity Reaction Status Date / Time metoclopramide [From Reglan] Allergy Mild Itching Verified 11/03/17 14:57 tramadol Allergy Mild Itching Verified 11/03/17 14:57 amitriptyline Allergy Itching Verified 11/03/17 14:57 codeine Allergy Hives Verified 11/03/17 14:57 Sulfa (Sulfonamide Allergy See Verified 11/03/17 14:57 Antibiotics) Comments sulfamethoxazole Allergy See Verified 11/03/17 14:57 [From Bactrim] Comments trimethoprim [From Bactrim] Allergy See Verified 11/03/17 14:57 Comments lorazepam [From Ativan] AdvReac Mild Anxiety Verified 11/03/17 14:57 benztropine [From Cogentin] AdvReac See Verified 11/03/17 14:57 Comments ciprofloxacin [From Cipro] AdvReac See Verified 11/03/17 14:57 Comments onabotulinumtoxinA AdvReac See Verified 11/03/17 14:57 [From Botox] Comments sertraline [From Zoloft] AdvReac Headache Verified 11/03/17 14:57 sumatriptan [From Imitrex] AdvReac Agitated Verified 11/03/17 14:57 topiramate [From Topamax] AdvReac See Verified 11/03/17 14:57 Comments All systems ED: reviewed and negative except as stated. Review of Systems: As Per HPI Past Medical History - Past Medical History Attestation: Yes The following information was validated with the patient. Source: old records reviewed Medical history: Reports: arthritis, migraine Surgical history: Reports: , cholecystectomy, herniorrhaphy, hysterectomy Psychiatric history: Reports: anxiety, bipolar, depression HEALTH AND SAFETY REPRESENTATIVE history: Reports: no HEALTH AND SAFETY REPRESENTATIVE history, other - Social History Smoking Status: Current some day smoker Smokeless Tobacco Status: No Alcohol use: Reports: none Drug use: Reports: none Physical Exam - General Limitations: altered mental status General appearance: lethargic - Head Head exam: atraumatic, normocephalic, normal inspection - Eye Eye exam: Present: normal appearance, PERRL, EOMI - ENT ENT exam: normal exam, normal oropharynx, mucous membranes moist - Neck Neck exam: Present: normal inspection, full ROM, trachea midline - Chest Chest inspection: Present: normal inspection, symmetric chest wall rise - Respiratory Respiratory exam: Present: normal lung sounds bilaterally - Cardiovascular Cardiovascular exam: Present: regular rate, normal rhythm, normal heart sounds - Abdominal Exam Abdominal exam: Present: soft, Non-Tender, normal bowel sounds. Absent: tenderness, distention, guarding, rebound, rigidity - Extremities Exam Extremities exam: Present: normal inspection, full ROM. Absent: tenderness, pedal edema - Expanded Lower Extremity Exam Neurovascular/Tendon exam: Present: normal capillary refill. Absent: pulse deficit, motor deficit, sensory deficit, tendon deficit - Back Exam Back exam: Present: normal inspection, full ROM. Absent: tenderness - Neurological Exam Neurological exam: Present: alert, oriented X3 - Expanded Neurological Exam Patient oriented to: Present: person Speech: Present: expressive aphasia Cranial nerves: EOM function (II, III, IV, ): Normal, facial sensation (V): Normal, facial palsy (VII): Normal, gag reflex (IX): Normal, spinal accessory function (XI): Normal, tongue deviation (XII): Normal Cerebellar function: finger to nose: Normal, heel to núñez: Normal Motor strength - LUE: 5/5 Motor strength - RUE: 5/5 Motor strength - LLE: 5/5 Motor strength - RLE: 5/5 Upper motor neuron exam: pronator drift: Absent bilaterally Sensory exam upper extremity: 2 point discrimination: Normal Sensory exam lower extremity: 2 point discrimination: Normal Coma Scale Eye Opening: Spontaneous Coma Scale Motor Response: Obeys Commands Coma Scale Verbal Response: Confused Coma Scale Total: 14 - Psychiatric Psychiatric exam: Present: normal affect, normal mood - Skin Skin exam: Present: warm, dry, intact, normal color Course Course Narrative: Well-hydrated female. Patient looks lethargic. Patient is alert and oriented though she does not answer for a while, it appears to take turn extended period of time before answering questions. While patient is speaking she will stop what she is saying it appears to be thinking and she looks up and she says "see what I mean I cannot think of this word". Patient does not appear to have some small version of expressive aphasia, she states difficulty with memory, confusion, generalized weakness. Vital signs are stable. Rest of physical exam is benign. We will workup for AMS with basic labs, head CT, chest x-ray, UA and reevaluate. We will also had a tox screen as well as a blood alcohol. EKG reveals sinus rhythm with a ventricular rate of 99, OH interval 157 ms, QTc interval show 618 ms, manually counting with attending Dr. Cartagena shows approximately 400 QTC, repeat EKG again shows a QTC of 514 ms, manual counting again shows approximate 400. There is chronic ST depression. Using manual QTC measurement, EKG is unchanged from previous. - Reevaluation(s) Reevaluation #1: Patient resting quietly in no acute distress. Chest x-ray reveals pneumonia, compared to previous study right lobes noted with considerable more pacer days. CBC is benign, LFTs unremarkable, troponin is negative, EtOH is negative. Patient has recently been admitted for the same confusion-type areas last week, she had an echo completed on 12/24/17 that showed [id number]%, cardiology had seen her and rolled out cardiology component. However, patient does have a slightly elevated white count, she does have pneumonia. The patient would benefit from IV antibiotics as well as healthcare associated, plan for admission to the hospital at this time. Time: 06:04 Vital Signs Temperature 97.7 F 12/29/17 03:26 Pulse Rate 99 12/29/17 03:26 Respiratory Rate 20 12/29/17 03:26 Blood Pressure 118/95 12/29/17 03:26 O2 Sat by Pulse Oximetry 96 12/29/17 03:26 Temperature 98.3 F 12/30/17 02:59 Pulse Rate 90 12/30/17 02:59 Respiratory Rate 16 12/30/17 02:59 Blood Pressure 130/64 12/30/17 02:59 O2 Sat by Pulse Oximetry 93 12/30/17 02:59 Oxygen Delivery Oxygen Delivery Room Air Medical Decision Making - Lab Data Result diagrams: 12/29/17 03:43 12/29/17 03:43 Lab Results 12/29/17 12/29/17 12/29/17 Range/Units 03:28 03:43 03:43 WBC 11.2 H (4.3-11.1) K/mcL RBC 3.57 L (3.82-4.97) M/mcL Hgb 10.5 L (11.5-15.4) g/dL Hct 31.9 L (35.3-44.9) % MCV 89.4 (83.0-100.0) fL MCH 29.4 (28.0-33.3) pg MCHC 32.9 (31.6-35.5) g/dL RDW 13.1 (11.5-14.5) % Plt Count 251 (140-400) K/mcL MPV 9.0 L (9.4-12.4) fL Immature Gran % 0.5 (0-4) % Seg Neutrophils % 82.5 % Lymphocytes % 8.1 % Monocytes % 5.5 % Eosinophils % 3.0 % Basophils % 0.4 % Neutrophils # 9.2 H (1.6-8.9) K/mcL Lymphocytes # 0.9 (0.6-4.6) K/mcL Monocytes # 0.6 (0.0-1.3) K/mcL Eosinophils # 0.3 (0.0-0.6) K/mcL Basophils # 0.0 (0.0-0.2) K/mcL PT (9.4-12.1) Seconds INR APTT (26.0-36.0) Seconds Sodium 141 (136-145) mEq/L Potassium 3.5 (3.5-5.1) mEq/L Chloride 109 H (98-107) mEq/L Carbon Dioxide 23 (23-29) mEq/L BUN 7 (6-20) mg/dL Creatinine 0.73 (0.60-1.20) mg/dL Est GFR ( Amer) > 60 (> 60) Est GFR (Non-Af Amer) > 60 (> 60) BUN/Creatinine Ratio 10 (6-26) Glucose 147 H (70-105) mg/dL POC Glucose 159 H (70-99) mg/dL Calculated Osmolality 293 (280-300) Calcium 9.0 (8.6-10.3) mg/dL Magnesium 2.0 (1.6-2.6) mg/dL Total Bilirubin 0.3 (0.3-1.0) mg/dL Direct Bilirubin 0.0 (0.0-0.2) mg/dL Indirect Bilirubin 0.3 (0.0-1.2) mg/dL AST 17 (13-39) Units/L ALT 14 (7-52) Units/L Alkaline Phosphatase 155 H (34-104) Units/L Troponin I < 0.03 (< 0.04) ng/mL Serum Total Protein 6.0 L (6.4-8.9) g/dL Albumin 3.3 L (3.5-5.7) g/dL Globulin 2.7 (2.4-3.5) g/dL Albumin/Globulin Ratio 1.2 (1.1-2.2) Ethyl Alcohol < 10 (Less than 10) mg/dL 12/29/17 Range/Units 04:17 WBC (4.3-11.1) K/mcL RBC (3.82-4.97) M/mcL Hgb (11.5-15.4) g/dL Hct (35.3-44.9) % MCV (83.0-100.0) fL MCH (28.0-33.3) pg MCHC (31.6-35.5) g/dL RDW (11.5-14.5) % Plt Count (140-400) K/mcL MPV (9.4-12.4) fL Immature Gran % (0-4) % Seg Neutrophils % % Lymphocytes % % Monocytes % % Eosinophils % % Basophils % % Neutrophils # (1.6-8.9) K/mcL Lymphocytes # (0.6-4.6) K/mcL Monocytes # (0.0-1.3) K/mcL Eosinophils # (0.0-0.6) K/mcL Basophils # (0.0-0.2) K/mcL PT 13.5 H (9.4-12.1) Seconds INR 1.2 APTT 61.2 H D (26.0-36.0) Seconds Sodium (136-145) mEq/L Potassium (3.5-5.1) mEq/L Chloride (98-107) mEq/L Carbon Dioxide (23-29) mEq/L BUN (6-20) mg/dL Creatinine (0.60-1.20) mg/dL Est GFR ( Amer) (> 60) Est GFR (Non-Af Amer) (> 60) BUN/Creatinine Ratio (6-26) Glucose (70-105) mg/dL POC Glucose (70-99) mg/dL Calculated Osmolality (280-300) Calcium (8.6-10.3) mg/dL Magnesium (1.6-2.6) mg/dL Total Bilirubin (0.3-1.0) mg/dL Direct Bilirubin (0.0-0.2) mg/dL Indirect Bilirubin (0.0-1.2) mg/dL AST (13-39) Units/L ALT (7-52) Units/L Alkaline Phosphatase (34-104) Units/L Troponin I (< 0.04) ng/mL Serum Total Protein (6.4-8.9) g/dL Albumin (3.5-5.7) g/dL Globulin (2.4-3.5) g/dL Albumin/Globulin Ratio (1.1-2.2) Ethyl Alcohol (Less than 10) mg/dL
[2017-12-29 04:18] LABS: Troponin I < 0.03 ng/mL (< 0.04)
[2017-12-29 04:30] LABS: Alanine Aminotransferase 14 Units/L (7-52); Albumin 3.3 g/dL (3.5-5.7); Albumin/Globulin Ratio 1.2 (1.1-2.2); Alkaline Phosphatase 155 Units/L (34-104); Aspartate Amino Transferase 17 Units/L (13-39); BUN/Creatinine Ratio 10 (6-26); Bilirubin,Indirect 0.3 mg/dL (0.0-1.2); Bilirubin,Total 0.3 mg/dL (0.3-1.0); Blood Urea Nitrogen 7 mg/dL (6-20); Carbon Dioxide 23 mEq/L (23-29); Chloride 109 mEq/L (98-107); Ethanol < 10 mg/dL (Less than 10); Globulin 2.7 g/dL (2.4-3.5); Glucose 147 mg/dL (70-105); Osmolality,Calculated 293 (280-300); Potassium 3.5 mEq/L (3.5-5.1); Sodium 141 mEq/L (136-145); eGFR For Non-African Americans > 60 (> 60)
[2017-12-29 04:33] LABS: INR 1.2; Prothrombin Time 13.5 Seconds (9.4-12.1)
[2017-12-29 04:36] LABS: Activated Partial Thrombo Time 61.2 Seconds (26.0-36.0)
[2017-12-29] MEDS ORDERED: Piperacillin/Tazobactam 3.375 GM in 0.9 % Sodium Chloride Mini Bag 100 ML IVPB ONE (06:02)
--- NOTE | 2017-12-29 06:44 | Emergency Department Note ---
Disposition Clinical Impression: Pneumonia Qualifiers: Pneumonia type: due to unspecified organism Laterality: right Lung location: unspecified part of lung Qualified Code(s): J18.9 - Pneumonia, unspecified organism Disposition: Admitted As Inpatient Condition: Good Referrals: NONE,PCP [Primary Care Provider] - Forms: ED Satisfaction Letter, Work/School Release General Adult HPI - General Chief complaint: ED General Medical Stated complaint: "confused" Time Seen by Provider: 12/29/17 03:04 Source: patient, EMS Mode of arrival: private vehicle Limitations: altered mental status Nursing Notes Reviewed: Yes Vital Signs Reviewed: Yes - History of Present Illness Pain Scale: 0 - Related Data Home Medications Medication Instructions Recorded Confirmed Aspirin [Lo-Dose Aspirin EC] 81 mg PO DAILY 12/24/17 12/24/17 Baclofen [Lioresal] 10 mg PO TID 12/24/17 12/24/17 Chlorpromazine HCl 400 mg PO HS 12/24/17 12/24/17 Diltiazem SR (12hr) [Cardizem SR] 60 mg PO QAM 12/24/17 12/24/17 DiphenhydraMINE [Benadryl] 25 - 50 mg PO HS PRN 12/24/17 12/24/17 Doxepin HCl 300 mg PO HS 12/24/17 12/24/17 Nabumetone [Relafen] 500 mg PO TID 12/24/17 12/24/17 Omeprazole [PriLOSEC] 40 mg PO DAILY 12/24/17 12/24/17 PARoxetine HCl [Paroxetine HCl] 60 mg PO DAILY 12/24/17 12/24/17 Promethazine HCl 12.5 mg PO DAILY PRN 12/24/17 12/24/17 Propranolol [Inderal] 10 mg PO BID 12/24/17 12/24/17 Ropinirole HCl [Requip] 0.5 mg PO HS 12/24/17 12/24/17 hydrOXYzine HCl [Hydroxyzine HCl] 25 - 50 mg PO BID 12/24/17 12/24/17 Allergies Allergy/AdvReac Type Severity Reaction Status Date / Time metoclopramide [From Reglan] Allergy Mild Itching Verified 11/03/17 14:57 tramadol Allergy Mild Itching Verified 11/03/17 14:57 amitriptyline Allergy Itching Verified 11/03/17 14:57 codeine Allergy Hives Verified 11/03/17 14:57 Sulfa (Sulfonamide Allergy See Verified 11/03/17 14:57 Antibiotics) Comments sulfamethoxazole Allergy See Verified 11/03/17 14:57 [From Bactrim] Comments trimethoprim [From Bactrim] Allergy See Verified 11/03/17 14:57 Comments lorazepam [From Ativan] AdvReac Mild Anxiety Verified 11/03/17 14:57 benztropine [From Cogentin] AdvReac See Verified 11/03/17 14:57 Comments ciprofloxacin [From Cipro] AdvReac See Verified 11/03/17 14:57 Comments onabotulinumtoxinA AdvReac See Verified 11/03/17 14:57 [From Botox] Comments sertraline [From Zoloft] AdvReac Headache Verified 11/03/17 14:57 sumatriptan [From Imitrex] AdvReac Agitated Verified 11/03/17 14:57 topiramate [From Topamax] AdvReac See Verified 11/03/17 14:57 Comments Past Medical History - Past Medical History Medical history: Reports: arthritis, migraine Surgical history: Reports: , cholecystectomy, herniorrhaphy, hysterectomy Psychiatric history: Reports: anxiety, bipolar, depression 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[employer] 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 history: Reports: no 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[employer] history, other - Social History Smoking Status: Current some day smoker Smokeless Tobacco Status: No Alcohol use: Reports: none Drug use: Reports: none Physical Exam - General Limitations: altered mental status General appearance: lethargic Course Vital Signs Temperature 97.7 F 12/29/17 03:26 Pulse Rate 99 12/29/17 03:26 Respiratory Rate 20 12/29/17 03:26 Blood Pressure 118/95 12/29/17 03:26 O2 Sat by Pulse Oximetry 96 12/29/17 03:26 Temperature 97.7 F 12/29/17 03:26 Pulse Rate 78 12/29/17 06:19 Respiratory Rate 21 12/29/17 06:19 Blood Pressure 108/62 12/29/17 06:19 O2 Sat by Pulse Oximetry 90 12/29/17 06:19 Oxygen Delivery Oxygen Delivery Room Air Medical Decision Making - Medical Records Medical records reviewed: Yes I reviewed the patient's medical records. - Lab Data Lab results reviewed: Yes I reviewed the patient's lab results. Result diagrams: 12/29/17 03:43 12/29/17 03:43 Lab Results 12/29/17 12/29/17 12/29/17 Range/Units 03:28 03:43 03:43 WBC 11.2 H (4.3-11.1) K/mcL RBC 3.57 L (3.82-4.97) M/mcL Hgb 10.5 L (11.5-15.4) g/dL Hct 31.9 L (35.3-44.9) % MCV 89.4 (83.0-100.0) fL MCH 29.4 (28.0-33.3) pg MCHC 32.9 (31.6-35.5) g/dL RDW 13.1 (11.5-14.5) % Plt Count 251 (140-400) K/mcL MPV 9.0 L (9.4-12.4) fL Immature Gran % 0.5 (0-4) % Seg Neutrophils % 82.5 % Lymphocytes % 8.1 % Monocytes % 5.5 % Eosinophils % 3.0 % Basophils % 0.4 % Neutrophils # 9.2 H (1.6-8.9) K/mcL Lymphocytes # 0.9 (0.6-4.6) K/mcL Monocytes # 0.6 (0.0-1.3) K/mcL Eosinophils # 0.3 (0.0-0.6) K/mcL Basophils # 0.0 (0.0-0.2) K/mcL PT (9.4-12.1) Seconds INR APTT (26.0-36.0) Seconds Sodium 141 (136-145) mEq/L Potassium 3.5 (3.5-5.1) mEq/L Chloride 109 H (98-107) mEq/L Carbon Dioxide 23 (23-29) mEq/L BUN 7 (6-20) mg/dL Creatinine 0.73 (0.60-1.20) mg/dL Est GFR ( Amer) > 60 (> 60) Est GFR (Non-Af Amer) > 60 (> 60) BUN/Creatinine Ratio 10 (6-26) Glucose 147 H (70-105) mg/dL POC Glucose 159 H (70-99) mg/dL Calculated Osmolality 293 (280-300) Calcium 9.0 (8.6-10.3) mg/dL Magnesium 2.0 (1.6-2.6) mg/dL Total Bilirubin 0.3 (0.3-1.0) mg/dL Direct Bilirubin 0.0 (0.0-0.2) mg/dL Indirect Bilirubin 0.3 (0.0-1.2) mg/dL AST 17 (13-39) Units/L ALT 14 (7-52) Units/L Alkaline Phosphatase 155 H (34-104) Units/L Troponin I < 0.03 (< 0.04) ng/mL Serum Total Protein 6.0 L (6.4-8.9) g/dL Albumin 3.3 L (3.5-5.7) g/dL Globulin 2.7 (2.4-3.5) g/dL Albumin/Globulin Ratio 1.2 (1.1-2.2) Ethyl Alcohol < 10 (Less than 10) mg/dL 12/29/17 Range/Units 04:17 WBC (4.3-11.1) K/mcL RBC (3.82-4.97) M/mcL Hgb (11.5-15.4) g/dL Hct (35.3-44.9) % MCV (83.0-100.0) fL MCH (28.0-33.3) pg MCHC (31.6-35.5) g/dL RDW (11.5-14.5) % Plt Count (140-400) K/mcL MPV (9.4-12.4) fL Immature Gran % (0-4) % Seg Neutrophils % % Lymphocytes % % Monocytes % % Eosinophils % % Basophils % % Neutrophils # (1.6-8.9) K/mcL Lymphocytes # (0.6-4.6) K/mcL Monocytes # (0.0-1.3) K/mcL Eosinophils # (0.0-0.6) K/mcL Basophils # (0.0-0.2) K/mcL PT 13.5 H (9.4-12.1) Seconds INR 1.2 APTT 61.2 H D (26.0-36.0) Seconds Sodium (136-145) mEq/L Potassium (3.5-5.1) mEq/L Chloride (98-107) mEq/L Carbon Dioxide (23-29) mEq/L BUN (6-20) mg/dL Creatinine (0.60-1.20) mg/dL Est GFR ( Amer) (> 60) Est GFR (Non-Af Amer) (> 60) BUN/Creatinine Ratio (6-26) Glucose (70-105) mg/dL POC Glucose (70-99) mg/dL Calculated Osmolality (280-300) Calcium (8.6-10.3) mg/dL Magnesium (1.6-2.6) mg/dL Total Bilirubin (0.3-1.0) mg/dL Direct Bilirubin (0.0-0.2) mg/dL Indirect Bilirubin (0.0-1.2) mg/dL AST (13-39) Units/L ALT (7-52) Units/L Alkaline Phosphatase (34-104) Units/L Troponin I (< 0.04) ng/mL Serum Total Protein (6.4-8.9) g/dL Albumin (3.5-5.7) g/dL Globulin (2.4-3.5) g/dL Albumin/Globulin Ratio (1.1-2.2) Ethyl Alcohol (Less than 10) mg/dL - Radiology Data Radiology results reviewed: Yes I reviewed the patient's radiology results. Chest X-Ray 12/29/17 03:04 IMPRESSION: 1. Patchy right lung opacities suspicious for pneumonia. 2. Cardiomegaly. D/ / 12/29/2017 06:10:19 Oscar Odell MD / [facility] Interpreting Provider: Oscar Odell MD Head CT 12/29/17 03:05 IMPRESSION: No acute intracranial abnormality. D/ / José Oliveira MD / José Oliveira MD Interpreting Provider: José Oliveira MD - EKG Data EKG #1 EKG attestation: Yes I reviewed and interpreted this EKG. EKG results narrative: EKG shows sinus rhythm with ventricular rate of 90. Mild ST depression in V2 with inverted T waves in V1 through V3 which were present on prior EKG. Attestation Statement - Attestation Attestation: I, Skyler Cartagena MD, personally evaluated this patient and discussed their management with the midlevel provicer, PAC/EXPERIMENTAL ELECTRONICS DEVELOPER. I reviewed the midlevel provider 's note and agree with the documented findings, medical decision making, and plan of care. 57-year-old female presents to the emergency department with 2 episodes of falling tonight and increased confusion. She was recently in the hospital for pneumonia but was not discharged on antibiotics. Film Projector Operator reports that she is on a lot of psychiatric meds and he thinks she is overmedicated. She fell twice tonight and he was unable to get her up. He states she has been confused and disoriented. On examination patient is a well-developed well-nourished female in no acute distress. No cyanosis or diaphoresis. Breath sounds are decreased bilaterally with some bilateral rales and rhonchi, worse on the right. Heart regular rate and rhythm. Abdomen soft with present bowel sounds. Head CT negative. Chest x-ray shows right-sided pneumonia. Labs reviewed. The hospitalist, Dr. Hamm, was consulted and accepted admission of the patient.
[2017-12-29 06:52] LABS: Bilirubin,Urine Negative (Negative); Blood,Urine Negative (Negative); Clarity,Urine Clear (Clear); Color,Urine Yellow (Yellow); Glucose,Urine (UA) Normal (Normal); Ketones,Urine Negative (Negative); Leukocyte Esterase,Urine Negative (Negative); Nitrite,Urine Negative (Negative); PH,Urine 6.5 pH Units (5.0-8.0); Protein,Urine Negative (Neg-Trace); Specific Gravity,Urine 1.005 (1.010-1.025); Urobilinogen,Urine Normal (Normal)
[2017-12-29] MEDS ORDERED: Naloxone 0.4 MG/ML INJ IVP PRN (08:47)
--- NOTE | 2017-12-29 09:14 | Internal Med History&Physical ---
Date of Encounter: 12/29/17 Time of Encounter: 09:06 Internal Medicine - H&P: HPI History of present illness: Ms. Montoya is a 57 year old female with history heart failure with preserved ejection fraction, anxiety, depression, bipolar disorder, KHALIF, hypertension, migraines, presented to ED for two falls overnight with increased confusion. She has been losing balance for days and also complains of leg weakness. She denies hitter her head after fall, denies complete LOC. She was recently admitted one 12/24 for presyncope as well. Echocardiogram She had abnormal EKG findings. Cardiology evaluated and noted this was chronic and not new. MRI on showed mild chronic small vessel ischemic disease, and previous injury or infarct in the right parietal lobe, but there was no acute process. She was discharged in stable condition. Three days ago after discharge, patient took it upon herself to decrease her medications since she feels she is taking too many medications. In the ED, EKG was noted to have QTc intervals that ranged from 400s-600s. Other EKG changes were consistent with prior studies. A chest x-ray showed pneumonia, and she was given vancomycin and Zosyn. A urine drug screen and serum alcohol was negative. She is currently in no acute distress. No family at bedside. She denies chest pain, SOB, fevers/chills, sick contacts, abdominal pain. She denies ETOH or drug abuse. States she has a mild cough. Past Med Surg Social Fam HX - Past Medical History Medical history: arthritis, migraine Additional medical history: pt denies any history Psychiatric history: anxiety, bipolar, depression - Past Surgical History Surgical History: , cholecystectomy, herniorrhaphy, hysterectomy Additional surgical history: Lung BX- right. - Social History Smoking Status: Current some day smoker Smokeless Tobacco Status: No Alcohol use: none Drug use: none - Family History Father Living Status: Still Living Hx Family Cardiac Disorders: Yes (heart disease) Mother Adopted: No Family Member Ethnicity: Non- Living Status: Still Living Hx Family Cardiac Disorders: No Hx Family Respiratory Disorders: Yes (short of breath) Hx Family Cancer: No Hx Family GI Disorders: No Hx Family Endocrine Disorder: No Hx Family Neuromuscular Disorders: No Hx Family Neurologic Disorders: No Hx Family HEENT Disorders: No Hx Family Autoimmune Disorders: Yes (hyperthyroid) Grandfather Living Status: Hx Family Cardiac Disorders: Yes Internal Medicine - H&P: Meds Aspirin [Lo-Dose Aspirin EC] 81 mg PO DAILY 12/24/17 [History] Baclofen [Lioresal] 10 mg PO TID 12/24/17 [History] Chlorpromazine HCl 400 mg PO HS 12/24/17 [History] Diltiazem SR (12hr) [Cardizem SR] 60 mg PO QAM 12/24/17 [History] DiphenhydraMINE [Benadryl] 25 - 50 mg PO HS PRN 12/24/17 [History] Doxepin HCl 300 mg PO HS 12/24/17 [History] Nabumetone [Relafen] 500 mg PO TID 12/24/17 [History] Omeprazole [PriLOSEC] 40 mg PO DAILY 12/24/17 [History] PARoxetine HCl [Paroxetine HCl] 60 mg PO DAILY 12/24/17 [History] Promethazine HCl 12.5 mg PO DAILY PRN 12/24/17 [History] Propranolol [Inderal] 10 mg PO BID 12/24/17 [History] Ropinirole HCl [Requip] 0.5 mg PO HS 12/24/17 [History] hydrOXYzine HCl [Hydroxyzine HCl] 25 - 50 mg PO BID 12/24/17 [History] 3 Allergy/AdvReac Type Severity Reaction Status Date / Time metoclopramide [From Reglan] Allergy Mild Itching Verified 11/03/17 14:57 tramadol Allergy Mild Itching Verified 11/03/17 14:57 amitriptyline Allergy Itching Verified 11/03/17 14:57 codeine Allergy Hives Verified 11/03/17 14:57 Sulfa (Sulfonamide Allergy See Verified 11/03/17 14:57 Antibiotics) Comments sulfamethoxazole Allergy See Verified 11/03/17 14:57 [From Bactrim] Comments trimethoprim [From Bactrim] Allergy See Verified 11/03/17 14:57 Comments lorazepam [From Ativan] AdvReac Mild Anxiety Verified 11/03/17 14:57 benztropine [From Cogentin] AdvReac See Verified 11/03/17 14:57 Comments ciprofloxacin [From Cipro] AdvReac See Verified 11/03/17 14:57 Comments onabotulinumtoxinA AdvReac See Verified 11/03/17 14:57 [From Botox] Comments sertraline [From Zoloft] AdvReac Headache Verified 11/03/17 14:57 sumatriptan [From Imitrex] AdvReac Agitated Verified 11/03/17 14:57 topiramate [From Topamax] AdvReac See Verified 11/03/17 14:57 Comments All Systems PM: A 10-system review of systems was performed and is negative for pertinent findings except as documented above in the HPI. - Constitutional Vitals: Temp Pulse Resp BP Pulse Ox 97.6 F 90 16 134/74 93 12/29/17 07:43 12/29/17 07:43 12/29/17 07:43 12/29/17 07:43 12/29/17 07:43 General appearance: Present: A&O X 3 Exam: NAD - Head Head exam: Present: atraumatic, normocephalic - Eye Eye exam: Present: PERRL, conjuntiva pink, sclera anicteric Pupils: Present: PERRL - Neck Neck exam general surgery: Present: supple, trachea midline. Absent: lymphadenopathy - Respiratory Respiratory exam: Present: CTAB. Absent: accessory muscle use, rales, rhonchi, wheezes - Cardiovascular Cardiovascular exam: Present: RRR, +S1, +S2. Absent: diastolic murmur, gallop, rubs, systolic murmur - GI/Abdominal GI/Abdominal exam: Present: normal bowel sounds, soft, no peritoneal signs. Absent: distended, tenderness - Extremities Exam Extremities exam: Present: warm, radial pulses palpable and symmetrical. Absent : calf tenderness, cyanotic, pedal edema - Neurological Exam Neurological exam: Present: CN II-XII intact, oriented X3, no focal deficits. Absent: pronater drift, facial droop, speech deficit - Skin Skin exam: Present: dry, intact Internal Med - H&P Results - Labs CBC & Chem 7: 12/29/17 03:43 12/29/17 03:43 Labs: Urine 12/29/17 Range/Units 06:45 Urine Color Yellow (Yellow) Urine Clarity Clear (Clear) Urine pH 6.5 (5.0-8.0) pH Units Ur Specific [place] 1.005 L (1.010-1.025) Urine Protein Negative (Neg-Trace) mg/dL Urine Glucose (UA) Normal (Normal) mg/dL - Assessment and plan (1) Encephalopathy Current Visit: No Status: Acute Assessment and plan: She displayed acute confusion episode in the ED, which seems to have resolved. Possible etiologies include toxic metabolic encephalopathy from polypharmacy. Could be related to adjusting medications on her own. She has frequent presyncopal episodes and also having extremity weakness. There is possibility these episodes are related to pneumonia, but she does not appear septic. MRI done 3 days ago showed a remote infarct or injury in parietal lobe but nothing acute. No focal deficits on exam. Urine drug screen negative. - Neurochecks. - Consult Neurology in regards to frequent syncopal episodes - Consult Psychiatry for medication adjustments. (2) Pre-syncope Current Visit: Yes Status: Acute Assessment and plan: Workup as above. Neuro and Psychiatry consults. Recently MRI, and echocardiograms were performed. EKGs abnormal but chronic, recently evaluated by Cardiology. In addition: - orthostatic vital signs - PT/OT (3) Hospital-acquired pneumonia Current Visit: Yes Status: Acute Assessment and plan: As seen on chest x-ray Obtain procalcitonin, resp panel, sputum cultures. If procalcitonin negative, may need pulm workup as there are multiple imaging in the past that shows opacities. (4) Weakness Current Visit: No Status: Acute Assessment and plan: PT/OT. Further workup as above. (5) Abnormal EKG Current Visit: No Status: Chronic Assessment and plan: Cardiology evaluated patient 3 days ago and had echocardiogram and no further workup was needed. (6) Anemia Current Visit: No Status: Chronic Assessment and plan: Hemoglobin several days ago 12, gradually decreased to 10 today. Will recheck tomorrow. No signs/symptoms of bleed. Baseline appears to be 10-12. Qualifiers: Anemia type: other cause Other causes of anemia: other cause, not classified Qualified Code(s): D64.89 - Other specified anemias (7) CHF (congestive heart failure) Current Visit: No Status: Chronic Assessment and plan: Had admission for heart failure years ago but currently no acute issues. Qualifiers: Heart failure type: diastolic Heart failure chronicity: unspecified Qualified Code(s): I50.30 - Unspecified diastolic (congestive) heart failure (8) Essential hypertension Current Visit: No Status: Chronic Assessment and plan: Resume home medications. (9) Major depressive disorder with psychotic features Current Visit: No Status: Chronic Assessment and plan: Resume home medications for now. Will need Psychiatry to evaluate. (10) Migraine Current Visit: No Status: Chronic Assessment and plan: No acute issues. Qualifiers: Migraine type: without aura Status migrainosus presence: with status migrainosus Intractability: intractable Qualified Code(s): G43.011 - Migraine without aura, intractable, with status migrainosus (11) Polypharmacy Current Visit: No Status: Chronic Assessment and plan: Plan as above, Psychiatry consulted for medication review. (12) DVT prophylaxis Current Visit: No Status: Acute Assessment and plan: EPCDs (13) Opacity of lung on imaging study Current Visit: No Status: Acute Assessment and plan: Suspect this is pneumonia, but also have seen opacities in prior images. Will likely need outpatient follow-up. - Time Spent With Patient Total time spent is greater than 50% in coordination of care (as documented) at patient's floor/unit and/or counseling patient:
[2017-12-29 10:05] LABS: Amphetamine Screen,Urine Negative ng/mL (Cutoff=1000); Barbiturate Screen,Urine Positive ng/mL (Cutoff=200); Benzodiazepines Screen,Urine Negative ng/mL (Cutoff=200); Cannabinoid Screen,Urine Negative ng/mL (Cutoff = 50); Cocaine Screen,Urine Negative ng/mL (Cutoff= 300); Opiate Screen,Urine Negative ng/mL (Cutoff=300); Phencyclidine Screen,Urine Negative ng/mL (Cutoff=25)
[2017-12-29 11:04] LABS: Estimated Average Glucose 100 mg/dl; Hemoglobin A1C 5.1 %
--- NOTE | 2017-12-29 12:01 | Consult Note ---
Date of Encounter: 12/29/17 Time of Encounter: 11:53 Assessment & Recommendation (1) Bipolar disorder Current visit: No Status: Chronic Assessment & Recommendation: Would hold Doxepin for now. Can restart Paxil and a lower dose of Chlorpromazine. Would recommend follow up with Dr. Doyle for possible change in medications. Unclear if psych meds contributed to mental status change but all three are anticholinergic and could have contributed to her confusion. Qualifiers: Active/Remission status: remission status unspecified Qualified Code(s): F31.9 - Bipolar disorder, unspecified History of Present Illness Requesting Physician: Toro Hamm MD Reason for consult: AMS History of present illness: Ms. Montoya is a 57 year old female who was admitted from home secondary to falling and feeling confused. Takes multiple meds at home including Chlorpromazine, Paxil, and Doxepin. Client states she has been weaning herself off of her psych meds due to feeling overmedicated but may have made too many changes too quickly. Client states she is diagnosed with Bipolar Disorder. Follows with Dr. Doyle here at [place]. Claims she has been on current med regimen for years. Her medication combination is highly anticholinergic. It would be unusual for her to develop an adverse reaction so suddenly if she has been taking this combination for a long time. However, it is possible her AMS is due to the anticholinergic side effects of her medication regimen. Client reports she is scheduled to see Dr. Doyle this month. Would recommend she be seen as soon as possible for a potential change in her prescriptions. Since she has not been taking any of her meds here would recommend not restarting all of them at once. Would hold Doxepin for now. Can restart Paxil and a lower dose of Chlorpromazine (100mg-200mg) until she follows up as an outpatient. Client denies SI/HI. Still seems overmedicated during interview but otherwise oriented. CC: Toro Hamm MD Past Med Surg Social Fam HX - Past Medical History Medical history: arthritis, migraine - Past Psychiatric History Psychiatric history: Reports: bipolar, depression, previous psychiatric hospitalization Family psychiatric history: Unknown Family History of Suicide: Unknown - Past Surgical History Surgical History: , cholecystectomy, herniorrhaphy, hysterectomy - Social History Smoking Status: Current some day smoker Smokeless Tobacco Status: No Alcohol use: none Drug use: none - Family History Father Living Status: Still Living Hx Family Cardiac Disorders: Yes (heart disease) Mother Adopted: No Family Member Ethnicity: Non- Living Status: Still Living Hx Family Cardiac Disorders: No Hx Family Respiratory Disorders: Yes (short of breath) Hx Family Cancer: No Hx Family GI Disorders: No Hx Family Endocrine Disorder: No Hx Family Neuromuscular Disorders: No Hx Family Neurologic Disorders: No Hx Family HEENT Disorders: No Hx Family Autoimmune Disorders: Yes (hyperthyroid) Grandfather Living Status: Hx Family Cardiac Disorders: Yes Medications & Allergies Aspirin [Lo-Dose Aspirin EC] 81 mg PO DAILY 12/24/17 [History] Baclofen [Lioresal] 10 mg PO TID 12/24/17 [History] Chlorpromazine HCl 400 mg PO HS 12/24/17 [History] Diltiazem SR (12hr) [Cardizem SR] 60 mg PO QAM 12/24/17 [History] DiphenhydraMINE [Benadryl] 25 - 50 mg PO HS PRN 12/24/17 [History] Doxepin HCl 300 mg PO HS 12/24/17 [History] Nabumetone [Relafen] 500 mg PO TID 12/24/17 [History] Omeprazole [PriLOSEC] 40 mg PO DAILY 12/24/17 [History] PARoxetine HCl [Paroxetine HCl] 60 mg PO DAILY 12/24/17 [History] Promethazine HCl 12.5 mg PO DAILY PRN 12/24/17 [History] Propranolol [Inderal] 10 mg PO BID 12/24/17 [History] Ropinirole HCl [Requip] 0.5 mg PO HS 12/24/17 [History] hydrOXYzine HCl [Hydroxyzine HCl] 25 - 50 mg PO BID 12/24/17 [History] 3 Allergy/AdvReac Type Severity Reaction Status Date / Time metoclopramide [From Reglan] Allergy Mild Itching Verified 11/03/17 14:57 tramadol Allergy Mild Itching Verified 11/03/17 14:57 amitriptyline Allergy Itching Verified 11/03/17 14:57 codeine Allergy Hives Verified 11/03/17 14:57 Sulfa (Sulfonamide Allergy See Verified 11/03/17 14:57 Antibiotics) Comments sulfamethoxazole Allergy See Verified 11/03/17 14:57 [From Bactrim] Comments trimethoprim [From Bactrim] Allergy See Verified 11/03/17 14:57 Comments lorazepam [From Ativan] AdvReac Mild Anxiety Verified 11/03/17 14:57 benztropine [From Cogentin] AdvReac See Verified 11/03/17 14:57 Comments ciprofloxacin [From Cipro] AdvReac See Verified 11/03/17 14:57 Comments onabotulinumtoxinA AdvReac See Verified 11/03/17 14:57 [From Botox] Comments sertraline [From Zoloft] AdvReac Headache Verified 11/03/17 14:57 sumatriptan [From Imitrex] AdvReac Agitated Verified 11/03/17 14:57 topiramate [From Topamax] AdvReac See Verified 11/03/17 14:57 Comments Review of Systems Constitutional: Denies: fever, chills, weakness, weight change Eyes: Denies: eye pain, vision change Ears, Nose, Throat: Denies: ear pain, throat pain, dental pain, hearing loss, congestion Cardiovascular: Denies: chest pain, palpitations, dyspnea on exertion Respiratory: Denies: cough, dyspnea, wheezes Gastrointestinal: Denies: abdominal pain, nausea, vomiting, diarrhea, constipation Genitourinary female: Denies: urgency, dysuria, frequency, abnormal menses, dyspareunia Musculoskeletal: Denies: joint swelling, joint pain Integumentary: Denies: rash, lesions, pruritus Neurological: Denies: headache, weakness, numbness, memory loss Endocrine: Denies: fatigue, heat or cold intolerance Hematologic/Lymphatic: Denies: easy bruising, lymphadenopathy Allergic/Immunologic: Denies: urticaria, itchy eyes Psychiatry Exam - Constitutional Vitals: Temp Pulse Resp BP Pulse Ox 97.9 F 88 16 123/83 90 12/29/17 10:44 12/29/17 10:44 12/29/17 10:44 12/29/17 10:44 12/29/17 10:44 General appearance: obese - Musculoskeletal Gait: other Station: relaxed Strength & Tone: normal for patient - Psychiatric Patient Orientation: Yes Person, Yes Time, Yes Place Level of alertness: Alert Behavior: calm, cooperative Psychomotor activity: Normal Eye Contact: Maintains Eye Contact Mood Description: Euthymic/stable Affect description: congruent with mood Speech Volume: Normal Speech pattern: normal rate, normal rhythm, normal tone, fluent, spontaneous Language & Vocabulary: consistent with education Thought Process: Linear Thought Content: No Suicidal ideation, No Homicidal ideation, No Overt delusions Perceptual Disturbances: No Auditory hallucinations, No Visual hallucinations Attention Span Ability: Capable of Focused Attention Memory Description: Grossly Intact Patient Reliability: Reliable Historian Fund of knowledge: Yes abstraction ability, Yes aware of current events Intelligence Estimate: Average Judgment: Fair Insight: Partial Results - Drug Levels and Toxicology Drug Levels and Toxicology: Drug Levels and Toxicity 12/29/17 06:45 Urine Opiates Screen Negative Ur Barbiturates Screen Positive H Ur Phencyclidine Scrn Negative Ur Amphetamines Screen Negative U Benzodiazepines Scrn Negative Urine Cocaine Screen Negative U Marijuana (THC) Screen Negative - Labs Labs: Laboratory Last Values WBC 11.2 K/mcL (4.3-11.1) H 12/29/17 03:43 RBC 3.57 M/mcL (3.82-4.97) L 12/29/17 03:43 Hgb 10.5 g/dL (11.5-15.4) L 12/29/17 03:43 Hct 31.9 % (35.3-44.9) L 12/29/17 03:43 MCV 89.4 fL (83.0-100.0) 12/29/17 03:43 MCH 29.4 pg (28.0-33.3) 12/29/17 03:43 MCHC 32.9 g/dL (31.6-35.5) 12/29/17 03:43 RDW 13.1 % (11.5-14.5) 12/29/17 03:43 Plt Count 251 K/mcL (140-400) 12/29/17 03:43 MPV 9.0 fL (9.4-12.4) L 12/29/17 03:43 Immature Gran % 0.5 % (0-4) 12/29/17 03:43 Seg Neutrophils % 82.5 % 12/29/17 03:43 Lymphocytes % 8.1 % 12/29/17 03:43 Monocytes % 5.5 % 12/29/17 03:43 Eosinophils % 3.0 % 12/29/17 03:43 Basophils % 0.4 % 12/29/17 03:43 Neutrophils # 9.2 K/mcL (1.6-8.9) H 12/29/17 03:43 Lymphocytes # 0.9 K/mcL (0.6-4.6) 12/29/17 03:43 Monocytes # 0.6 K/mcL (0.0-1.3) 12/29/17 03:43 Eosinophils # 0.3 K/mcL (0.0-0.6) 12/29/17 03:43 Basophils # 0.0 K/mcL (0.0-0.2) 12/29/17 03:43 PT 13.5 Seconds (9.4-12.1) H 12/29/17 04:17 INR 1.2 12/29/17 04:17 APTT 61.2 Seconds (26.0-36.0) H D 12/29/17 04:17 Sodium 141 mEq/L (136-145) 12/29/17 03:43 Potassium 3.5 mEq/L (3.5-5.1) 12/29/17 03:43 Chloride 109 mEq/L (98-107) H 12/29/17 03:43 Carbon Dioxide 23 mEq/L (23-29) 12/29/17 03:43 BUN 7 mg/dL (6-20) 12/29/17 03:43 Creatinine 0.73 mg/dL (0.60-1.20) 12/29/17 03:43 Est GFR ( Amer) > 60 (> 60) 12/29/17 03:43 Est GFR (Non-Af Amer) > 60 (> 60) 12/29/17 03:43 BUN/Creatinine Ratio 10 (6-26) 12/29/17 03:43 Glucose 147 mg/dL (70-105) H 12/29/17 03:43 POC Glucose 159 mg/dL (70-99) H 12/29/17 03:28 Est Mean Plasma Glucose 100 mg/dl 12/29/17 10:13 Hemoglobin A1c 5.1 % (-5.6) 12/29/17 10:13 Calculated Osmolality 293 (280-300) 12/29/17 03:43 Calcium 9.0 mg/dL (8.6-10.3) 12/29/17 03:43 Magnesium 2.0 mg/dL (1.6-2.6) 12/29/17 03:43 Total Bilirubin 0.3 mg/dL (0.3-1.0) 12/29/17 03:43 Direct Bilirubin 0.0 mg/dL (0.0-0.2) 12/29/17 03:43 Indirect Bilirubin 0.3 mg/dL (0.0-1.2) 12/29/17 03:43 AST 17 Units/L (13-39) 12/29/17 03:43 ALT 14 Units/L (7-52) 12/29/17 03:43 Alkaline Phosphatase 155 Units/L (34-104) H 12/29/17 03:43 Troponin I < 0.03 ng/mL (< 0.04) 12/29/17 03:43 Serum Total Protein 6.0 g/dL (6.4-8.9) L 12/29/17 03:43 Albumin 3.3 g/dL (3.5-5.7) L 12/29/17 03:43 Globulin 2.7 g/dL (2.4-3.5) 12/29/17 03:43 Albumin/Globulin Ratio 1.2 (1.1-2.2) 12/29/17 03:43 Urine Color Yellow (Yellow) 12/29/17 06:45 Urine Clarity Clear (Clear) 12/29/17 06:45 Urine pH 6.5 pH Units (5.0-8.0) 12/29/17 06:45 Ur Specific [place] 1.005 (1.010-1.025) L 12/29/17 06:45 Urine Protein Negative mg/dL (Neg-Trace) 12/29/17 06:45 Urine Glucose (UA) Normal mg/dL (Normal) 12/29/17 06:45 Urine Ketones Negative mg/dL (Negative) 12/29/17 06:45 Urine Blood Negative (Negative) 12/29/17 06:45 Urine Nitrite Negative (Negative) 12/29/17 06:45 Urine Bilirubin Negative (Negative) 12/29/17 06:45 Urine Urobilinogen Normal mg/dL (Normal) 12/29/17 06:45 Ur Leukocyte Esterase Negative (Negative) 12/29/17 06:45 Ur Culture Indicated? NO (NO) 12/29/17 06:45 Urine Opiates Screen Negative ng/mL (Fbyobx=900) 12/29/17 06:45 Ur Barbiturates Screen Positive ng/mL (Hvhlvc=058) H 12/29/17 06:45 Ur Phencyclidine Scrn Negative ng/mL (Cutoff=25) 12/29/17 06:45 Ur Amphetamines Screen Negative ng/mL (Cztkjc=1216) 12/29/17 06:45 U Benzodiazepines Scrn Negative ng/mL (Qitofc=032) 12/29/17 06:45 Urine Cocaine Screen Negative ng/mL (Cutoff= 300) 12/29/17 06:45 U Marijuana (THC) Screen Negative ng/mL (Cutoff = 50) 12/29/17 06:45 Ur Drug Screen Interp See Below 12/29/17 06:45 Ethyl Alcohol < 10 mg/dL (Less than 10) 12/29/17 03:43 Consult Discharge Plan - Plan Referrals: NONE,PCP [Primary Care Provider] -
[2017-12-29] MEDS ORDERED: Aminoglycoside Consult 1 EACH MC ONE (15:20)
[2017-12-29] MEDS: Piperacillin/Tazobactam 3.375 GM in 0.9 % Sodium Chloride Mini Bag 100 ML IVPB SCH ×2 (15:20→23:29)
--- NOTE | 2017-12-29 16:28 | Neurology - Consult Note ---
Date of Encounter: 12/29/17 Time of Encounter: 16:25 Assessment and Plan (1) Altered mental status Current Visit: No Status: Resolved The transient nature of this patient's altered mental status, along with the lack of significant lab abnormalities or imaging abnormalities suggest that the problem here was likely due to medication effect. There are 2 issues here the first of which deals with polypharmacy and she does takes several medications that have anticholinergic effects. These notoriously cause confusion in the all older population would however can cause mental status changes and the younger population as well particularly if overused. She was that she did have the presence of barbiturates in her urine tox screen and barbiturate use is one of the diagnoses on her profile. She does not have any barbiturates as listed on her medication list. Therefore I presume that she is obtaining this illicitly. In any regard I do not feel that any further testing or neurologic intervention is necessary here. He may discharge her at your discretion. I will reevaluate her at your request. Qualifiers: Altered mental status type: unspecified Qualified Code(s): R41.82 - Altered mental status, unspecified History of Present Illness HPI: The chart was reviewed, the patient was seen and examined. Ms. Montoya is a 57 year old female who is seen for neurologic consultation at the request of the hospitalist regarding acute confusion and generalized weakness. Patient has a history of bipolar disorder and apparently was on different agents including Paxil, doxepin and chlorpromazine. She states that she is also been on Requip for restless leg syndrome and her dose of Requip was increased about a week or so ago. In any regard on the day of admission she states that she awakened from her bed and the soonest her feet at the floor she was profusely weak and somewhat confused. She states however her symptoms have all resolved. When I entered the room she was talking on the telephone. She properly acknowledging me when I walked in. She states that she does have some residual right hip pain however she has been up around the room and going to the bathroom. She denied any headache associated with the acute syndrome although she does have migraine headaches occasionally. CT scan of the head was obtained at the time of admission and was normal. White blood cell count was slightly elevated at 11.2. The urine tox screen also revealed the presence of barbiturates, however she does not take a prescription with this. Past Med Surg Social Fam HX - Past Medical History Medical history: arthritis, migraine Additional medical history: pt denies any history Psychiatric history: bipolar, depression, previous psychiatric hospitalization - Past Surgical History Surgical History: , cholecystectomy, herniorrhaphy, hysterectomy Additional surgical history: Lung BX- right. - Social History Smoking Status: Current some day smoker Smokeless Tobacco Status: No Alcohol use: none Drug use: none - Family History Father Living Status: Still Living Hx Family Cardiac Disorders: Yes (heart disease) Mother Adopted: No Family Member Ethnicity: Non- Living Status: Still Living Hx Family Cardiac Disorders: No Hx Family Respiratory Disorders: Yes (short of breath) Hx Family Cancer: No Hx Family GI Disorders: No Hx Family Endocrine Disorder: No Hx Family Neuromuscular Disorders: No Hx Family Neurologic Disorders: No Hx Family HEENT Disorders: No Hx Family Autoimmune Disorders: Yes (hyperthyroid) Grandfather Living Status: Hx Family Cardiac Disorders: Yes Medications and Allergies Aspirin [Lo-Dose Aspirin EC] 81 mg PO DAILY 12/24/17 [History] Baclofen [Lioresal] 10 mg PO TID 12/24/17 [History] Chlorpromazine HCl 400 mg PO HS 12/24/17 [History] Diltiazem SR (12hr) [Cardizem SR] 60 mg PO QAM 12/24/17 [History] DiphenhydraMINE [Benadryl] 25 - 50 mg PO HS PRN 12/24/17 [History] Doxepin HCl 300 mg PO HS 12/24/17 [History] Nabumetone [Relafen] 500 mg PO TID 12/24/17 [History] Omeprazole [PriLOSEC] 40 mg PO DAILY 12/24/17 [History] PARoxetine HCl [Paroxetine HCl] 60 mg PO DAILY 12/24/17 [History] Promethazine HCl 12.5 mg PO DAILY PRN 12/24/17 [History] Propranolol [Inderal] 10 mg PO BID 12/24/17 [History] Ropinirole HCl [Requip] 0.5 mg PO HS 12/24/17 [History] hydrOXYzine HCl [Hydroxyzine HCl] 25 - 50 mg PO BID 12/24/17 [History] 3 Allergy/AdvReac Type Severity Reaction Status Date / Time metoclopramide [From Reglan] Allergy Mild Itching Verified 11/03/17 14:57 tramadol Allergy Mild Itching Verified 11/03/17 14:57 amitriptyline Allergy Itching Verified 11/03/17 14:57 codeine Allergy Hives Verified 11/03/17 14:57 Sulfa (Sulfonamide Allergy See Verified 11/03/17 14:57 Antibiotics) Comments sulfamethoxazole Allergy See Verified 11/03/17 14:57 [From Bactrim] Comments trimethoprim [From Bactrim] Allergy See Verified 11/03/17 14:57 Comments lorazepam [From Ativan] AdvReac Mild Anxiety Verified 11/03/17 14:57 benztropine [From Cogentin] AdvReac See Verified 11/03/17 14:57 Comments ciprofloxacin [From Cipro] AdvReac See Verified 11/03/17 14:57 Comments onabotulinumtoxinA AdvReac See Verified 11/03/17 14:57 [From Botox] Comments sertraline [From Zoloft] AdvReac Headache Verified 11/03/17 14:57 sumatriptan [From Imitrex] AdvReac Agitated Verified 11/03/17 14:57 topiramate [From Topamax] AdvReac See Verified 11/03/17 14:57 Comments All Systems: The remainder of the systems were reviewed and are negative Review of Systems: The balance of the systems review is negative. Physical Examination - Vital Signs Vital Signs: Initial Vital Signs Temp Pulse Resp BP Pulse Ox 97.7 F 99 20 118/95 96 12/29/17 03:26 12/29/17 03:26 12/29/17 03:26 12/29/17 03:26 12/29/17 03:26 - Neurologic Detailed motor examination: full strength in all major muscle groups Motor examination - right side: 08/30: deltoids, biceps, triceps, wrist flexion, wrist extension, central sterile technician, hip flexors, tibialis Anterior, quadriceps, toe extension (EHL), plantarflexion Motor examination - left side: 08/30: deltoids, biceps, triceps, wrist flexion, wrist extension, hip flexors, central sterile technician, quadriceps, tibialis Anterior, toe extension (EHL), plantarflexion Mental Status Examination: awake, alert, oriented to person, oriented to place, oriented to time, follows commands appropriately, answers questions appropriately, no agnosia, no aphasia, no aproxia Cranial nerve examination: PERRL, EOMI, visual barakat intact, corneal reflexes brisk symmetrically, sensory to face intact, mastication intact, no facial asymmetry is present, no dysarthria, hearing is intact symmetrically, soft palate elevates bilaterally upon phonation, gag reflex intact, flexes SCM and trapezius muscles symmetrically with full power, tongue protrudes midline, no atrophy or facial fasiculations present Cerebellar examination: no dysmetria, performs finger to nose and heel to núñez symmetrically without ataxia, no gait ataxia, no truncal ataxia, no difficulty with rapid alternating movements Results - Laboratory Findings CBC and BMP: 12/29/17 03:43 12/29/17 03:43 Abnormal lab findings: Abnormal lab results WBC 11.2 K/mcL (4.3-11.1) H 12/29/17 03:43 RBC 3.57 M/mcL (3.82-4.97) L 12/29/17 03:43 Hgb 10.5 g/dL (11.5-15.4) L 12/29/17 03:43 Hct 31.9 % (35.3-44.9) L 12/29/17 03:43 MPV 9.0 fL (9.4-12.4) L 12/29/17 03:43 Neutrophils # 9.2 K/mcL (1.6-8.9) H 12/29/17 03:43 PT 13.5 Seconds (9.4-12.1) H 12/29/17 04:17 APTT 61.2 Seconds (26.0-36.0) H D 12/29/17 04:17 Chloride 109 mEq/L (98-107) H 12/29/17 03:43 Glucose 147 mg/dL (70-105) H 12/29/17 03:43 POC Glucose 159 mg/dL (70-99) H 12/29/17 03:28 Alkaline Phosphatase 155 Units/L (34-104) H 12/29/17 03:43 Serum Total Protein 6.0 g/dL (6.4-8.9) L 12/29/17 03:43 Albumin 3.3 g/dL (3.5-5.7) L 12/29/17 03:43 Ur Specific [place] 1.005 (1.010-1.025) L 12/29/17 06:45 Ur Barbiturates Screen Positive ng/mL (Plmonl=740) H 12/29/17 06:45 Consult Discharge Plan - Plan Referrals: NONE,PCP [Primary Care Provider] -
[2017-12-29] MEDS: Acetaminophen 325 MG TABLET PO PRN (22:38)
[2017-12-30] MEDS: Melatonin 3 MG TABLET PO SCH ×2 (01:46→20:06)
[2017-12-30] MEDS: rOPINIRole 1 MG TABLET PO SCH ×2 (01:54→20:05)
[2017-12-30] MEDS ORDERED: *HR* LORazepam 2 MG/ML VIAL IVP ONE (04:09)
[2017-12-30 06:08] LABS: Basophils % 0.3 %; Eosinophils # 0.4 K/mcL (0.0-0.6); Eosinophils % 4.4 %; Hematocrit 30.1 % (35.3-44.9); Hemoglobin 10.1 g/dL (11.5-15.4); Immature Granulocytes % 0.6 % (0-4); Lymphocytes # 1.2 K/mcL (0.6-4.6); Lymphocytes % 12.2 %; Mean Corpuscular HGB Conc 33.6 g/dL (31.6-35.5); Mean Corpuscular Hemoglobin 30.1 pg (28.0-33.3); Mean Corpuscular Volume 89.6 fL (83.0-100.0); Mean Platelet Volume 8.8 fL (9.4-12.4); Monocytes # 0.7 K/mcL (0.0-1.3); Monocytes % 7.3 %; Neutrophils # 7.1 K/mcL (1.6-8.9); Platelet Count 257 K/mcL (140-400); Red Blood Count 3.36 M/mcL (3.82-4.97); Segmented Neutrophils % 75.2 %
[2017-12-30] MEDS: Acetaminophen 325 MG TABLET PO PRN (08:08)
[2017-12-30] MEDS: Piperacillin/Tazobactam 3.375 GM in 0.9 % Sodium Chloride Mini Bag 100 ML IVPB SCH ×4 (08:11→17:22)
[2017-12-30 10:23] LABS: Calcium 8.7 mg/dL (8.6-10.3); Potassium 3.6 mEq/L (3.5-5.1)
--- NOTE | 2017-12-30 11:29 | Internal Med Progress Note ---
Hospitalist Progress Note - Encounter Date of Encounter: 12/30/17 Time of Encounter: 11:46 - Subjective Interval History: No acute changes, patient continuing to improve. - Exam Vitals: Temp Pulse Resp BP Pulse Ox 97.4 F L 98 16 136/84 92 12/30/17 11:22 12/30/17 11:22 12/30/17 11:22 12/30/17 11:22 12/30/17 11:22 Exam: PHYSICAL EXAMINATION: GENERAL: The patient is a well-developed, female in no apparent distress. She is alert and oriented x3. HEENT: Head is normocephalic and atraumatic. Extraocular muscles are intact. Pupils are equal, round, and reactive to light and accommodation. Nares appeared normal. Mouth is well hydrated and without lesions. Mucous membranes are moist. Posterior pharynx clear of any exudate or lesions. NECK: Supple. No carotid bruits. No lymphadenopathy or thyromegaly. LUNGS: Clear to auscultation. HEART: Regular rate and rhythm, S1, S2 without murmur rubs or gallops. ABDOMEN: Soft, nontender, and nondistended. Positive bowel sounds. No hepatosplenomegaly was noted. EXTREMITIES: Without any cyanosis, clubbing, rash, lesions or edema. Mild bilateral lower extremity weakness NEUROLOGIC: Cranial nerves II through XII are grossly intact. PSYCHIATRIC: Anxious and agitated denies any suicidal or homicidal ideation SKIN: No ulceration or induration present. - Assessment and Plan (1) Encephalopathy Current Visit: No Status: Resolved Assessment and Plan: Presented with confusion in the ED which resolved on admission Possible etiologies include toxic metabolic encephalopathy from polypharmacy. Patient reports adjusting medications on her own at home. Also c/o near syncope; etiology unclear There is possibility these episodes are related to pneumonia, but she does not appear septic; most likely due to toxic metabolic encephalopathy from polypharmacy CT imaging of head without acute abnormalities neuro exam remains non focal Urine drug screen positive for barbiturates, I suspect illicit use as the patient is not RX these meds - Neurochecks q shift - ortho vitals - neuro consult- sugest S/sx likely caused by meds in the setting of polypharmacy; on multiple anthcholinergics - Consult Psychiatry-recommend continuing Paxil at current home dose and continuing chlorpromazine at a decreased dose - 12/30-encephalopathy appears to have resolved (2) Weakness Current Visit: No Status: Acute Assessment and Plan: Persistent No obvious neurological deficits PT/OT-recommends further physical therapy well and patient and home safety evaluation upon discharge (3) Polypharmacy Current Visit: No Status: Chronic Assessment and Plan: Above (4) CHF (congestive heart failure) Current Visit: No Status: Chronic Assessment and Plan: Mild diastolic dysfunction per history Currently not in acute exacerbation (5) Anemia Current Visit: No Status: Chronic Assessment and Plan: Chronic Hemoglobin was 12 on admission but has decreased to 10 throughout stay which is around patient's baseline No obvious signs or symptoms of bleeding, continue to closely monitor (6) Migraine Current Visit: No Status: Chronic Assessment and Plan: Chronic, No acute issues. (7) Opacity of lung on imaging study Current Visit: No Status: Acute Assessment and Plan: Suspect this is pneumonia, but also have seen opacities in prior images. PCP for outpatient follow-up, consider pulmonology f/u (8) Major depressive disorder with psychotic features Current Visit: No Status: Chronic Assessment and Plan: Resume home medications for now psychiatry recommends continuing paxil current dose, and chlorpromazine at a decreased dose (9) Essential hypertension Current Visit: No Status: Chronic Assessment and Plan: per hx. stable; Resume home medications. (10) Abnormal EKG Current Visit: No Status: Chronic Assessment and Plan: chronic ekg changes;Cardiology evaluated patient 3 days ago and had echocardiogram and no further workup was needed. (11) Hospital-acquired pneumonia Current Visit: Yes Status: Acute Assessment and Plan: As seen on chest x-ray procalcitonin-pending If procalcitonin negative, may need pulm workup as there are multiple imaging in the past that shows opacities stop vancomycin d/t SOREN continue with Zosyn (12) Pre-syncope Current Visit: Yes Status: Acute Assessment and Plan: Likely 2/2 polypharmacy Workup as above. Neuro and Psychiatry consults. Recently MRI, and echocardiograms were performed and unremarkable. EKGs abnormal but chronic, recently evaluated by Cardiology. In addition: - orthostatic vital signs - PT/OT- stand by assist and controlled gait assist; continue with PT/OT during stay, d/c with home patient safety eval d/t falls (13) SOREN (acute kidney injury) Current Visit: No Status: Acute Assessment and Plan: likely 2/2 vancomycin use in the setting of HCAP stop vancomycin now IVF recheck SCr in the morning no prior h/o renal disease (14) DVT prophylaxis Current Visit: No Status: Acute Assessment and Plan: CONT EPCDs, INCREASE ACTIVITY; ambulate WITH ASSISTANCE - Time Spent with Patient Total time spent is greater than 50% in coordination of care (as documented) at patient's floor/unit and/or counseling patient: less than 15 minutes Plan of Care Discussed with: patient Internal Medicine: Result - Labs CBC & Chem 7: 12/30/17 04:29 12/30/17 04:29 Labs: Short CBC 12/30/17 Range/Units 04:29 WBC 9.5 (4.3-11.1) K/mcL Hgb 10.1 L (11.5-15.4) g/dL Hct 30.1 L (35.3-44.9) % Plt Count 257 (140-400) K/mcL Neutrophils # 7.1 (1.6-8.9) K/mcL BMP 12/30/17 04:29 Sodium 145 Potassium 3.6 Chloride 116 H Carbon Dioxide 18 L BUN 31 H Creatinine 2.61 H Glucose 51 L Calcium 8.7 - ABG Interpretation ABG results: PT/INR, D-dimer PT 13.5 Seconds (9.4-12.1) H 12/29/17 04:17 - Impressions Impressions Hip X-Ray 12/29/17 21:45 IMPRESSION: No acute osseous abnormality. D/ / Wilbur Rachel MD / Wilbur Rachel MD Interpreting Provider: Wilbur Rachel MD Consult Discharge Plan - Plan Referrals: Iman Monae, [facility] [Partnered Physician] - 01/01/18 10:35 am (4) CHF (congestive heart failure) Qualifiers: Heart failure type: diastolic Heart failure chronicity: unspecified Qualified Code(s): I50.30 - Unspecified diastolic (congestive) heart failure (5) Anemia Qualifiers: Anemia type: other cause Other causes of anemia: other cause, not classified Qualified Code(s): D64.89 - Other specified anemias (6) Migraine Qualifiers: Migraine type: without aura Status migrainosus presence: with status migrainosus Intractability: intractable Qualified Code(s): G43.011 - Migraine without aura, intractable, with status migrainosus
[2017-12-30] MEDS: Baclofen 10 MG TABLET PO SCH ×2 (14:48→20:06)
[2017-12-30] MEDS: 0.9 % Sodium Chloride 1,000 ML IVC SCH ×2 (17:13→17:21)
[2017-12-30] MEDS: hydrOXYzine pamoate 25 MG CAPSULE PO SCH (20:06)
[2017-12-30] MEDS ORDERED: chlorproMAZINE 25 MG TABLET PO SCH (21:00)
[2017-12-31] MEDS: Piperacillin/Tazobactam 3.375 GM in 0.9 % Sodium Chloride Mini Bag 100 ML IVPB SCH ×2 (00:21→07:55)
[2017-12-31] MEDS: Acetaminophen 325 MG TABLET PO PRN ×2 (02:03→11:02)
[2017-12-31] MEDS ORDERED: Acetaminophen/Butalbital/CaffeineTABLET PO ONE (02:31)
[2017-12-31] MEDS: 0.9 % Sodium Chloride 1,000 ML IVC SCH ×2 (04:04→07:54)
[2017-12-31] MEDS: hydrOXYzine pamoate 25 MG CAPSULE PO SCH (07:54)
[2017-12-31] MEDS: Baclofen 10 MG TABLET PO SCH (07:54)
[2017-12-31] MEDS ORDERED: Diltiazem SR (12hr) 60 MG CAPSULE PO SCH (09:00)
[2017-12-31] MEDS ORDERED: Aspirin Enteric Coated 81 MG Tablet PO SCH (09:00)
[2017-12-31 10:14] LABS: Basophils % 0.4 %; Eosinophils # 0.5 K/mcL (0.0-0.6); Eosinophils % 4.9 %; Hematocrit 30.6 % (35.3-44.9); Hemoglobin 9.9 g/dL (11.5-15.4); Immature Granulocytes % 0.6 % (0-4); Lymphocytes # 1.1 K/mcL (0.6-4.6); Lymphocytes % 12.2 %; Mean Corpuscular HGB Conc 32.4 g/dL (31.6-35.5); Mean Corpuscular Hemoglobin 29.4 pg (28.0-33.3); Mean Corpuscular Volume 90.8 fL (83.0-100.0); Mean Platelet Volume 8.5 fL (9.4-12.4); Monocytes # 0.3 K/mcL (0.0-1.3); Monocytes % 3.3 %; Neutrophils # 7.3 K/mcL (1.6-8.9); Platelet Count 256 K/mcL (140-400); Red Blood Count 3.37 M/mcL (3.82-4.97); Red Cell Distribution Width 12.9 % (11.5-14.5); Segmented Neutrophils % 78.6 %
[2017-12-31 10:36] LABS: BUN/Creatinine Ratio 6 (6-26); Blood Urea Nitrogen 5 mg/dL (6-20); Calcium 8.2 mg/dL (8.6-10.3); Carbon Dioxide 24 mEq/L (23-29); Chloride 111 mEq/L (98-107); Glucose 149 mg/dL (70-105); Osmolality,Calculated 294 (280-300); Potassium 3.5 mEq/L (3.5-5.1); Sodium 142 mEq/L (136-145); eGFR For Non-African Americans > 60 (> 60)
[2017-12-31 11:25] VITALS: BP 119/76
--- NOTE | 2017-12-31 12:37 | Discharge Summary ---
Orders not resulted at time of discharge: Pending orders 12/29/17 08:59 Culture,Sputum with Gram Stain [RM] Routine Respiratory Infection Panel [MOLMIC] Routine 12/29/17 10:13 Mycoplasma pneumoniae IgG IgM Routine Procalcitonin Routine 01/01/18 04:00 Basic Metabolic Panel AM 0400 Complete Blood Count [HEME] AM 0400 01/02/18 04:00 Basic Metabolic Panel AM 0400 Complete Blood Count [HEME] AM 0400 Date of Encounter: 12/31/17 Time of Encounter: 12:32 - Discharge Diagnosis (1) Encephalopathy Priority: Primary Status: Resolved (2) Weakness Priority: Secondary Status: Acute (3) Polypharmacy Priority: Secondary Status: Chronic (4) CHF (congestive heart failure) Priority: Secondary Status: Chronic Qualifiers: Heart failure type: diastolic Heart failure chronicity: unspecified Qualified Code(s): I50.30 - Unspecified diastolic (congestive) heart failure (5) Anemia Priority: Secondary Status: Chronic Qualifiers: Anemia type: other cause Other causes of anemia: other cause, not classified Qualified Code(s): D64.89 - Other specified anemias (6) Migraine Priority: Secondary Status: Chronic Qualifiers: Migraine type: without aura Status migrainosus presence: with status migrainosus Intractability: intractable Qualified Code(s): G43.011 - Migraine without aura, intractable, with status migrainosus (7) Opacity of lung on imaging study Priority: Secondary Status: Acute (8) Major depressive disorder with psychotic features Priority: Secondary Status: Chronic (9) Essential hypertension Priority: Secondary Status: Chronic (10) Abnormal EKG Priority: Secondary Status: Chronic (11) Hospital-acquired pneumonia Priority: Secondary Status: Acute (12) Pre-syncope Priority: Secondary Status: Acute (13) SOREN (acute kidney injury) Priority: Secondary Status: Acute (14) DVT prophylaxis Priority: Secondary Status: Acute Hospital course: Ms. Montoya is a 57 year old female who presented with falls, confusion. Found to be encephalopathic due to polypharmacy and PNA. The patient noted that she has been attempting to down titrate her bipolar medications herself. Additionally during the stay the patient was found to have barbiturates on a urine drug screen which she has not prescribes it appears to have obtained illicitly. However, she denies any illicit drug use. Neurology consult and throughout stay finding no neurological cause for patient's presentation and agrees with assessment the condition likely caused by polypharmacy. Psychology consult throughout stay and agrees condition likely result of polypharmacy. Per psychology recommendations were to hold doxepin and continue Paxil and decrease chlorpromazine. Patient's mental status returned to baseline after implementing these recommendations. Patient now back to baseline without any problems. It should be noted that during the stay she was found to have pneumonia and was treated with vancomycin and Zosyn. She ended up developing an acute kidney injury during the stay, which is likely result of the vancomycin. Vancomycin was discontinued patient was given IV fluid and renal function returned to baseline. She is being d/c on cefdinir x3 days. She is instructed to follow-up with her PCP and psychiatrist in terms of down titration of bipolar medications. Please ensure f/u with psychiatrist at f/u appointment. She verbalized understanding and will follow up with PCP after discharge. Discharge discussed with: patient, family, nurse - Time Spent with Patient Total time spent providing and/or coordinating discharge services: Less than 30 minutes - Discharge Medications Prescriptions: chlorproMAZINE [Thorazine] 100 mg PO HS 30 Days #30 tablet Home Medications: Aspirin [Lo-Dose Aspirin EC] 81 mg PO DAILY 12/24/17 [History] Baclofen [Lioresal] 10 mg PO TID 12/24/17 [History] Diltiazem SR (12hr) [Cardizem SR] 60 mg PO QAM 12/24/17 [History] Doxepin HCl 300 mg PO HS 12/24/17 [History] Nabumetone [Relafen] 500 mg PO TID 12/24/17 [History] Omeprazole [PriLOSEC] 40 mg PO DAILY 12/24/17 [History] PARoxetine HCl [Paroxetine HCl] 60 mg PO DAILY 12/24/17 [History] Propranolol [Inderal] 10 mg PO BID 12/24/17 [History] Ropinirole HCl [Requip] 0.5 mg PO HS 12/24/17 [History] chlorproMAZINE [Thorazine] 100 mg PO HS 30 Days #30 tablet 12/31/17 [Rx] hydrOXYzine HCl [Hydroxyzine HCl] 25 mg PO BID #0 12/31/17 [Rx] Allergies/Adverse Reactions: 3 Allergy/AdvReac Type Severity Reaction Status Date / Time metoclopramide [From Reglan] Allergy Mild Itching Verified 11/03/17 14:57 tramadol Allergy Mild Itching Verified 11/03/17 14:57 amitriptyline Allergy Itching Verified 11/03/17 14:57 codeine Allergy Hives Verified 11/03/17 14:57 Sulfa (Sulfonamide Allergy See Verified 11/03/17 14:57 Antibiotics) Comments sulfamethoxazole Allergy See Verified 11/03/17 14:57 [From Bactrim] Comments trimethoprim [From Bactrim] Allergy See Verified 11/03/17 14:57 Comments lorazepam [From Ativan] AdvReac Mild Anxiety Verified 11/03/17 14:57 benztropine [From Cogentin] AdvReac See Verified 11/03/17 14:57 Comments ciprofloxacin [From Cipro] AdvReac See Verified 11/03/17 14:57 Comments onabotulinumtoxinA AdvReac See Verified 11/03/17 14:57 [From Botox] Comments sertraline [From Zoloft] AdvReac Headache Verified 11/03/17 14:57 sumatriptan [From Imitrex] AdvReac Agitated Verified 11/03/17 14:57 topiramate [From Topamax] AdvReac See Verified 11/03/17 14:57 Comments Date of admission: 12/29/17 06:38 Primary care physician: PCP NONE Consults: 12/29/17 08:50 Consult to Physical Therapy [CONS] Routine Comment: Evaluate, develop and implement POC Reason for Consult: weakness Does patient have active BEDREST order?: Yes Is patient medically & hemodynamically stable?: Yes 12/29/17 08:53 Consult to Occupational Therapy [CONS] Routine Comment: Evaluate, develop and implement POC Reason for Consult: Weakness Does patient have active BEDREST order?: No Is patient medically & hemodynamically stable?: Yes 12/29/17 08:57 Consult to Neurology [CONS] Routine Consulting Provider: [facility] Reason for Consult: Frequent presyncopal episodes. Call Completed: Yes 12/29/17 09:14 Consult to Psychiatry [CONS] Routine Consulting Provider: [facility] Reason consult: Altered mental status 12/30/17 11:35 Consult to Invasive Line Access Team [CONS] Routine Reason for Consult: limited access Line Type: Midline Discharging clinician: Bharath Burton Anticipated date of discharge: 12/31/17 - Constitutional Vitals: Temp Pulse Resp BP Pulse Ox 98.0 F 78 16 119/76 91 12/31/17 11:24 12/31/17 11:24 12/31/17 11:24 12/31/17 11:24 12/31/17 11:24 General appearance: Present: A&O X 3 Exam: . - Head Head exam: Present: atraumatic, normocephalic - Eye Eye exam: Present: PERRL, conjuntiva pink, sclera anicteric Pupils: Present: PERRL - Neck Neck exam general surgery: Present: supple, trachea midline. Absent: lymphadenopathy - Respiratory Respiratory exam: Present: CTAB. Absent: accessory muscle use, rales, rhonchi, wheezes - Cardiovascular Cardiovascular exam: Present: RRR, +S1, +S2. Absent: diastolic murmur, gallop, rubs, systolic murmur - GI/Abdominal GI/Abdominal exam: Present: normal bowel sounds, soft, no peritoneal signs. Absent: distended, tenderness - Extremities Exam Extremities exam: Present: warm, radial pulses palpable and symmetrical. Absent : calf tenderness, cyanotic, pedal edema - Neurological Exam Neurological exam: Present: CN II-XII intact, oriented X3, no focal deficits. Absent: pronater drift, facial droop, speech deficit - Skin Skin exam: Present: dry, intact - Patient Status Disposition: Home, Self-Care Condition: Good Overall status at discharge: patient is back to baseline - Discharge Instructions Instructions: Pneumonia (DC) Follow Up With: Iman Monae CNP [Partnered Physician] - 01/01/18 10:35 am - Diet and Activity Activity: increase activity as tolerated Diet: advance to your usual diet
--- NOTE | 2017-12-31 23:01 | Electrocardiograph Report ---
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
--- NOTE | 2017-12-31 23:03 | Electrocardiograph Report ---
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
[2018-01-01 11:17] LABS: Mycoplasma pneumoniae IgG 0.12 U/L (<=0.09)
== END 2017-12-31 15:21 | disposition home or self-care (01) ==
LOC: 3BNU 02:55 → EMEROOARM 02:55 → 3BNU 07:29
PROVIDERS: ADMIT Internal Medicine; ATTEND Internal Medicine

== ENCOUNTER 2018-01-01 15:01 | Inpatient (IN) ==
[2018-01-01] MEDS ORDERED: Metoclopramide 10 MG/2 ML VIAL IVP ONE (15:06)
--- NOTE | 2018-01-01 15:25 | Emergency Department Note ---
Disposition Clinical Impression: Pulmonary edema Qualifiers: Chronicity: acute Qualified Code(s): J81.0 - Acute pulmonary edema CHF (congestive heart failure) Qualifiers: Heart failure type: unspecified Heart failure chronicity: chronic Qualified Code(s): I50.9 - Heart failure, unspecified Disposition: Admitted As Inpatient Condition: Good Forms: ED Satisfaction Letter Time of Disposition: 17:32 General Adult HPI - General Chief complaint: ED Shortness of Breath/Dyspnea Stated complaint: MADELYN Time Seen by Provider: 01/01/18 15:06 Source: patient Mode of arrival: EMS Limitations: no limitations - History of Present Illness HPI Narrative: This is a 57-year-old female brought in by EMS for shortness of breath. She states that she had been admitted to the hospital cause of pneumonia and was discharged just yesterday, having been admitted yesterday from the 2 previous days. She also states that she had to see her regular doctor to receive a prescription for antibiotics. This is difficult to understand. She states that she has had a headache for the last few days his posterior but not as bad as her regular migraines. She states that her shortness of breath has worsened since she was discharged. Pain Scale: 8 - Related Data Home Medications Medication Instructions Recorded Confirmed Aspirin [Lo-Dose Aspirin EC] 81 mg PO DAILY 12/24/17 12/30/17 Baclofen [Lioresal] 10 mg PO TID 12/24/17 12/30/17 Diltiazem SR (12hr) [Cardizem SR] 60 mg PO QAM 12/24/17 12/30/17 Doxepin HCl 300 mg PO HS 12/24/17 12/30/17 Nabumetone [Relafen] 500 mg PO TID 12/24/17 12/30/17 Omeprazole [PriLOSEC] 40 mg PO DAILY 12/24/17 12/30/17 PARoxetine HCl [Paroxetine HCl] 60 mg PO DAILY 12/24/17 12/30/17 Propranolol [Inderal] 10 mg PO BID 12/24/17 12/30/17 Ropinirole HCl [Requip] 0.5 mg PO HS 12/24/17 12/30/17 Previous Rx's Medication Instructions Recorded Cefdinir [Omnicef] 300 mg PO BID 3 Days #6 capsule 12/31/17 chlorproMAZINE [Thorazine] 100 mg PO HS 30 Days #30 tablet 12/31/17 hydrOXYzine HCl [Hydroxyzine HCl] 25 mg PO BID #0 12/31/17 Allergies Allergy/AdvReac Type Severity Reaction Status Date / Time metoclopramide [From Reglan] Allergy Mild Itching Verified 11/03/17 14:57 tramadol Allergy Mild Itching Verified 11/03/17 14:57 amitriptyline Allergy Itching Verified 11/03/17 14:57 codeine Allergy Hives Verified 11/03/17 14:57 Sulfa (Sulfonamide Allergy See Verified 11/03/17 14:57 Antibiotics) Comments sulfamethoxazole Allergy See Verified 11/03/17 14:57 [From Bactrim] Comments trimethoprim [From Bactrim] Allergy See Verified 11/03/17 14:57 Comments lorazepam [From Ativan] AdvReac Mild Anxiety Verified 11/03/17 14:57 benztropine [From Cogentin] AdvReac See Verified 11/03/17 14:57 Comments ciprofloxacin [From Cipro] AdvReac See Verified 11/03/17 14:57 Comments onabotulinumtoxinA AdvReac See Verified 11/03/17 14:57 [From Botox] Comments sertraline [From Zoloft] AdvReac Headache Verified 11/03/17 14:57 sumatriptan [From Imitrex] AdvReac Agitated Verified 11/03/17 14:57 topiramate [From Topamax] AdvReac See Verified 11/03/17 14:57 Comments All systems ED: reviewed and negative except as stated. 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 Absent : tenderness, rash - Respiratory Respiratory exam: Present: respiratory distress, other (There are course crackles in all barakat, apices and bases, right and left). Absent: wheezes - Cardiovascular Cardiovascular exam: Present: normal rhythm, tachycardia, normal heart sounds - Abdominal Exam Abdominal exam: Present: soft, Non-Tender. Absent: tenderness, distention, guarding, rebound, rigidity - Extremities Exam Extremities exam: Present: normal inspection, full ROM. Absent: tenderness, pedal edema - Neurological Exam Neurological exam: Present: alert, oriented X3 - Psychiatric Psychiatric exam: Present: normal affect, normal mood - Skin Skin exam: Present: warm, dry, intact, normal color Course Course Narrative: This is a 57-year-old female here because of cough and shortness of breath. History is unclear. Vital Signs Temperature 99.4 F 01/01/18 15:02 Pulse Rate 107 01/01/18 15:02 Respiratory Rate 30 01/01/18 15:02 Blood Pressure 135/83 01/01/18 15:02 O2 Sat by Pulse Oximetry 78 01/01/18 15:02 Temperature 99.4 F 01/01/18 15:02 Pulse Rate 107 01/01/18 15:02 Respiratory Rate 30 01/01/18 15:02 Blood Pressure 135/83 01/01/18 15:02 O2 Sat by Pulse Oximetry 78 01/01/18 15:02 Oxygen Delivery Oxygen Delivery Room Air Medical Decision Making - Lab Data Lab results narrative: CBC shows leukocytosis of 13.8 BMP shows hypokalemia at 3.1 Lactate was low at 0.7 Troponin was low Result diagrams: 01/01/18 15:06 01/01/18 15:06 Lab Results 01/01/18 01/01/18 01/01/18 Range/Units 15:06 15:06 15:35 WBC 13.8 H (4.3-11.1) K/mcL RBC 3.81 L (3.82-4.97) M/mcL Hgb 11.3 L (11.5-15.4) g/dL Hct 34.3 L (35.3-44.9) % MCV 90.0 (83.0-100.0) fL MCH 29.7 (28.0-33.3) pg MCHC 32.9 (31.6-35.5) g/dL RDW 12.8 (11.5-14.5) % Plt Count 291 (140-400) K/mcL MPV 8.5 L (9.4-12.4) fL Immature Gran % 1.2 (0-4) % Seg Neutrophils % 86.0 % Lymphocytes % 7.0 % Monocytes % 3.8 % Eosinophils % 1.7 % Basophils % 0.3 % Neutrophils # 11.9 H (1.6-8.9) K/mcL Lymphocytes # 1.0 (0.6-4.6) K/mcL Monocytes # 0.5 (0.0-1.3) K/mcL Eosinophils # 0.2 (0.0-0.6) K/mcL Basophils # 0.0 (0.0-0.2) K/mcL Sodium 140 (136-145) mEq/L Potassium 3.1 L (3.5-5.1) mEq/L Chloride 107 (98-107) mEq/L Carbon Dioxide 23 (23-29) mEq/L BUN 5 L (6-20) mg/dL Creatinine 0.81 (0.60-1.20) mg/dL Est GFR ( Amer) > 60 (> 60) Est GFR (Non-Af Amer) > 60 (> 60) BUN/Creatinine Ratio 6 (6-26) Glucose 116 H (70-105) mg/dL Calculated Osmolality 288 (280-300) Lactic Acid 0.7 (0.5-2.2) mmol/L Calcium 8.5 L (8.6-10.3) mg/dL Troponin I < 0.03 (< 0.04) ng/mL - Radiology Data Radiology results reviewed: Yes I reviewed the patient's radiology results. Chest x-ray shows pulmonary edema - EKG Data EKG #1 EKG attestation: Yes I reviewed and interpreted this EKG. EKG results narrative: EKG shows sinus tachycardia at 106 bpm, normal intervals, normal axis, normal ST segments, T-wave inversions in V2 and V3
[2018-01-01] MEDS ORDERED: Nitroglycerin 0.4 MG TAB.SUBL SL PRN (15:48)
[2018-01-01] MEDS ORDERED: Furosemide 40 MG/4 ML VIAL IVP ONE (15:49)
[2018-01-01 15:57] LABS: Basophils % 0.3 %; Eosinophils # 0.2 K/mcL (0.0-0.6); Eosinophils % 1.7 %; Hematocrit 34.3 % (35.3-44.9); Hemoglobin 11.3 g/dL (11.5-15.4); Immature Granulocytes % 1.2 % (0-4); Mean Corpuscular HGB Conc 32.9 g/dL (31.6-35.5); Mean Corpuscular Hemoglobin 29.7 pg (28.0-33.3); Mean Platelet Volume 8.5 fL (9.4-12.4); Monocytes # 0.5 K/mcL (0.0-1.3); Monocytes % 3.8 %; Neutrophils # 11.9 K/mcL (1.6-8.9); Platelet Count 291 K/mcL (140-400); Red Blood Count 3.81 M/mcL (3.82-4.97); Red Cell Distribution Width 12.8 % (11.5-14.5)
[2018-01-01 16:09] LABS: BUN/Creatinine Ratio 6 (6-26); Blood Urea Nitrogen 5 mg/dL (6-20); Calcium 8.5 mg/dL (8.6-10.3); Carbon Dioxide 23 mEq/L (23-29); Chloride 107 mEq/L (98-107); Glucose 116 mg/dL (70-105); Osmolality,Calculated 288 (280-300); Potassium 3.1 mEq/L (3.5-5.1); Sodium 140 mEq/L (136-145); Troponin I < 0.03 ng/mL (< 0.04); eGFR For Non-African Americans > 60 (> 60)
[2018-01-01] MEDS ORDERED: Prochlorperazine 10 MG/2 ML VIAL IVP ONE (17:09)
[2018-01-01] MEDS ORDERED: Potassium Chloride Elixir 20 MEQ/15 ML UDC PO ONE (17:28)
[2018-01-01] MEDS ORDERED: Naloxone 0.4 MG/ML INJ IVP PRN (18:05)
[2018-01-01] MEDS ORDERED: cefTRIAXone 1,000 MG in Water for inj. (sterile) 20 ML 10 ML IVP ONE (18:05)
[2018-01-01] MEDS ORDERED: *HR* Morphine 2 MG/ML SYRINGE IVP ONE (18:19)
[2018-01-01] MEDS ORDERED: Acetaminophen 325 MG TABLET PO ONE (18:20)
[2018-01-01] MEDS ORDERED: *HR* Morphine 2 MG/ML SYRINGE ONE (18:27)
--- NOTE | 2018-01-01 18:38 | Internal Med History&Physical ---
Date of Encounter: 01/02/18 Time of Encounter: 18:25 Internal Medicine - H&P: HPI Chief complaint: Shortness of breath Admitted From: Home Plans for Post Hospital Care: Home History of present illness: Ms. Montoya is a 57 year old female with medical history of CHF with preserved ejection fraction, depression, anxiety, bipolar disorder migraine headaches who presented with acute onset shortness of breath, worse on exertion. The patient was discharged from this facility yesterday 12/31, this is her third admission in the past 2 weeks or shortness of breath. She was managed in the last admission for pneumonia, and was discharged on Ceftin for 3 days. 3 presents today following evaluation by her PCP recommended she presents to the emergency room due to respiratory rate greater than 30. On evaluation, she is severely tachypneic, in severe respiratory distress, unable to complete sentences. She is evaluated for spouse at the bedside, they deny fever or chills, no cough or sputum production. She does not believe this is similar to her panic attacks. She denies nausea or vomiting, but reports headaches worse than her baseline hx of migraine headaches. She denies abdominal pain, change in bowel movements, or change in urinary habits. She denies illicit drug use. She has multiple medication allergies. She is a current some current some day smoker Work up in the ER was significant for pumonary edema on CXR, prior infiltrate from last admission stable, however, new onset LLL infiltrate. CBC showed leukocytosis, with left shift which is new compared to 12/31/17. She also has hypokalemia Chem is unremarkable, initial troponin is negative. Electrocardiogram is sinus tachycardia with a ventricular rate of 106, she has T -wave inversions in V2 and V3, compared to prior EKGs this is chronic. She will be admitted inpatient for acute hypoxic respiratory failure, sepsis, acute CHF exacerbation The patient is high risk for mechanical intubation and decompensation. She is full code. Past Med Surg Social Fam HX - Past Medical History Medical history: arthritis, migraine Additional medical history: pt denies any history Psychiatric history: anxiety, bipolar, depression - Past Surgical History Surgical History: , cholecystectomy, herniorrhaphy, hysterectomy Additional surgical history: Lung BX- right. - Social History Smoking Status: Current some day smoker Smokeless Tobacco Status: No Alcohol use: none Drug use: none - Family History Father Living Status: Still Living Hx Family Cardiac Disorders: Yes (heart disease) Mother Adopted: No Family Member Ethnicity: Non- Living Status: Still Living Hx Family Cardiac Disorders: No Hx Family Respiratory Disorders: Yes (short of breath) Hx Family Cancer: No Hx Family GI Disorders: No Hx Family Endocrine Disorder: No Hx Family Neuromuscular Disorders: No Hx Family Neurologic Disorders: No Hx Family HEENT Disorders: No Hx Family Autoimmune Disorders: Yes (hyperthyroid) Grandfather Living Status: Hx Family Cardiac Disorders: Yes Internal Medicine - H&P: Meds Aspirin [Lo-Dose Aspirin EC] 81 mg PO DAILY 12/24/17 [History] Baclofen [Lioresal] 10 mg PO TID 12/24/17 [History] Diltiazem SR (12hr) [Cardizem SR] 60 mg PO QAM 12/24/17 [History] Doxepin HCl 300 mg PO HS 12/24/17 [History] Nabumetone [Relafen] 500 mg PO TID 12/24/17 [History] Omeprazole [PriLOSEC] 40 mg PO DAILY 12/24/17 [History] PARoxetine HCl [Paroxetine HCl] 60 mg PO DAILY 12/24/17 [History] Propranolol [Inderal] 10 mg PO BID 12/24/17 [History] Ropinirole HCl [Requip] 0.5 mg PO HS 12/24/17 [History] chlorproMAZINE [Thorazine] 100 mg PO HS 30 Days #30 tablet 12/31/17 [Rx] hydrOXYzine HCl [Hydroxyzine HCl] 25 mg PO BID #0 12/31/17 [Rx] 3 Allergy/AdvReac Type Severity Reaction Status Date / Time metoclopramide [From Reglan] Allergy Mild Itching Verified 11/03/17 14:57 tramadol Allergy Mild Itching Verified 11/03/17 14:57 amitriptyline Allergy Itching Verified 11/03/17 14:57 codeine Allergy Hives Verified 11/03/17 14:57 Sulfa (Sulfonamide Allergy See Verified 11/03/17 14:57 Antibiotics) Comments sulfamethoxazole Allergy See Verified 11/03/17 14:57 [From Bactrim] Comments trimethoprim [From Bactrim] Allergy See Verified 11/03/17 14:57 Comments lorazepam [From Ativan] AdvReac Mild Anxiety Verified 11/03/17 14:57 benztropine [From Cogentin] AdvReac See Verified 11/03/17 14:57 Comments ciprofloxacin [From Cipro] AdvReac See Verified 11/03/17 14:57 Comments onabotulinumtoxinA AdvReac See Verified 11/03/17 14:57 [From Botox] Comments sertraline [From Zoloft] AdvReac Headache Verified 11/03/17 14:57 sumatriptan [From Imitrex] AdvReac Agitated Verified 11/03/17 14:57 topiramate [From Topamax] AdvReac See Verified 11/03/17 14:57 Comments All Systems PM: A 10-system review of systems was performed and is negative for pertinent findings except as documented above in the HPI. - Constitutional Constitutional: as per HPI - EENT Eyes: as per HPI Ears: as per HPI Nose, mouth and throat: as per HPI - Cardiovascular Cardiovascular ROS IM: as per HPI - Respiratory Respiratory: as per HPI - Gastrointestinal Gastrointestinal: as per HPI - Genitourinary Genitourinary: as per HPI - Musculoskeletal Musculoskeletal ROS IM: as per HPI - Integumentary Integumentary IM: as per HPI - Neurological Neurological ROS: as per HPI - Hematologic/Lymphatic Hematologic/Lymphatic: as per HPI - Constitutional Vitals: Temp Pulse Resp BP Pulse Ox 99.4 F 104 24 118/62 95 01/01/18 15:02 01/01/18 18:24 01/01/18 18:24 01/01/18 18:24 01/01/18 18:24 General appearance: Present: A&O X 3, obese, severe distress Exam: see detailed exam below - Head Head exam: Present: atraumatic - Eye Eye exam: Present: PERRL, conjuntiva pink, sclera anicteric - ENT ENT exam: Present: mucous membranes dry - Neck Neck exam general surgery: Present: normal inspection - Respiratory Respiratory exam: Present: decreased breath sounds, rales, respiratory distress , tachypnea. Absent: stridor, wheezes - Cardiovascular Cardiovascular exam: Present: RRR, +S1, +S2. Absent: gallop, systolic murmur - GI/Abdominal GI/Abdominal exam: Present: normal bowel sounds, soft, no peritoneal signs. Absent: tenderness - Extremities Exam Extremities exam: Present: normal inspection. Absent: pedal edema - Neurological Exam Neurological exam: Present: alert, CN II-XII intact, oriented X3, no focal deficits. 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 Continue BiPAP support, continue Lasix Continue to monitor (2) Sepsis Current Visit: Yes Status: Acute Assessment and plan: Patient is sepsis risk with tachycardia, tachypnea, pneumonia on chest x-ray, recent treatment for pneumonia and recent hospitalization. Blood cultures were drawn and pending. We will send respiratory infection panel Continue ceftriaxone daily, and doxycycline for atypical coverage During the last admission this week, the patient developed acute kidney injury with exposure to vancomycin. At this time, risk of MRSA is no, will hold off vancomycin at this time. Lactic acid is within normal limit. Qualifiers: Sepsis type: sepsis due to unspecified organism Qualified Code(s): A41.9 - Sepsis, unspecified organism (3) Acute respiratory failure with hypoxia Current Visit: Yes Status: Acute Assessment and plan: Patient with oxygen saturation 78% on room air, tachypnea with respiratory rate 20-30 on presentation with takes x-ray findings of pulmonary edema and pneumonia. Continue BiPAP support overnight Keep NPO (4) Anxiety Current Visit: Yes Status: Chronic Assessment and plan: continue home meds (5) Anemia Current Visit: Yes Status: Chronic Assessment and plan: chronic, stable, continue to monitor Qualifiers: Anemia type: unspecified type Qualified Code(s): D64.9 - Anemia, unspecified (6) CHF (congestive heart failure) Current Visit: Yes Status: Acute Assessment and plan: acute on chronic ECHO from 11/2017 noted for preserved EF with mild LVDD Continue lasix IV 40mg daily Strict I and Os Daily weight Initial trop negative, will repeat X1 EKG non-ischemic Fluid restriction diet Qualifiers: Heart failure type: diastolic Heart failure chronicity: acute on chronic Qualified Code(s): I50.33 - Acute on chronic diastolic (congestive) heart failure (7) Depression Current Visit: Yes Status: Chronic Assessment and plan: continue home meds Qualifiers: Depression Type: unspecified Qualified Code(s): F32.9 - Major depressive disorder, single episode, unspecified (8) DVT prophylaxis Current Visit: Yes Status: Acute Assessment and plan: SQ heparin (9) Essential hypertension Current Visit: Yes Status: Chronic Assessment and plan: continue home meds (10) Pneumonia Current Visit: Yes Status: Acute Assessment and plan: bilateral Recently treated and discharged with OMnicef Her picture is concerning for pulm edema at this time, however, will obtain blood cultures and resp panel. Continue doxycycline 100mg IV BID Continue Ceftriaxone 1g daily Will follow Qualifiers: Pneumonia type: due to unspecified organism Laterality: bilateral Lung location: lower lobe of lung Qualified Code(s): J18.1 - Lobar pneumonia, unspecified organism - Time Spent With Patient Total time spent is greater than 50% in coordination of care (as documented) at patient's floor/unit and/or counseling patient:
[2018-01-01] MEDS: chlorproMAZINE 25 MG TABLET PO SCH (23:27)
[2018-01-01] MEDS: hydrOXYzine pamoate 25 MG CAPSULE PO SCH (23:28)
[2018-01-01] MEDS: rOPINIRole 0.25 MG TABLET PO SCH (23:28)
[2018-01-01] MEDS: Baclofen 10 MG TABLET PO SCH (23:28)
[2018-01-02 05:30] LABS: Adenovirus Not Detected (Not Detect); Bordetella Pertussis Not Detected (Not Detect); Chlamydophila pneumoniae Not Detected (Not Detect); Coronavirus 229E Not Detected (Not Detect); Coronavirus HKU1 Not Detected (Not Detect); Coronavirus NL63 Not Detected (Not Detect); Coronavirus OC43 Not Detected (Not Detect); Human Metapneumovirus Not Detected (Not Detect); Human Rhinovirus/Enterovirus Not Detected (Not Detect); Influenza A Subtype 2009 H1 Not Detected (Not Detect); Influenza A Untypeable Not Detected (Not Detect); Influenza B Not Detected (Not Detect); Mycoplasma pneumoniae Not Detected (Not Detect); Parainfluenza Virus 1 Not Detected (Not Detect); Parainfluenza Virus 2 Not Detected (Not Detect); Parainfluenza Virus 3 Not Detected (Not Detect); Parainfluenza Virus 4 Not Detected (Not Detect); Respiratory Syncytial Virus Not Detected (Not Detect)
[2018-01-02] MEDS ORDERED: Doxycycline 100 MG in 0.9 % Sodium Chloride Mini Bag 100 ML IVPB SCH (06:00)
[2018-01-02 06:40] LABS: Basophils % 0.3 %; Eosinophils # 0.3 K/mcL (0.0-0.6); Eosinophils % 2.1 %; Hematocrit 32.8 % (35.3-44.9); Hemoglobin 10.8 g/dL (11.5-15.4); Immature Granulocytes % 0.8 % (0-4); Lymphocytes # 1.2 K/mcL (0.6-4.6); Lymphocytes % 8.7 %; Mean Corpuscular HGB Conc 32.9 g/dL (31.6-35.5); Mean Corpuscular Hemoglobin 29.7 pg (28.0-33.3); Mean Corpuscular Volume 90.1 fL (83.0-100.0); Mean Platelet Volume 9.1 fL (9.4-12.4); Monocytes # 0.7 K/mcL (0.0-1.3); Neutrophils # 11.6 K/mcL (1.6-8.9); Platelet Count 286 K/mcL (140-400); Red Blood Count 3.64 M/mcL (3.82-4.97); Red Cell Distribution Width 12.7 % (11.5-14.5); Segmented Neutrophils % 83.1 %
[2018-01-02] MEDS: *HR* Enoxaparin 40 MG/0.4 ML SYRINGE SQ SCH (06:48)
[2018-01-02 06:54] LABS: BUN/Creatinine Ratio 8 (6-26); Blood Urea Nitrogen 6 mg/dL (6-20); Calcium 8.5 mg/dL (8.6-10.3); Carbon Dioxide 23 mEq/L (23-29); Chloride 104 mEq/L (98-107); Glucose 102 mg/dL (70-105); Osmolality,Calculated 284 (280-300); Potassium 3.4 mEq/L (3.5-5.1); Sodium 138 mEq/L (136-145); eGFR For Non-African Americans > 60 (> 60)
[2018-01-02] MEDS: Aspirin Enteric Coated 81 MG Tablet PO SCH (08:09)
[2018-01-02] MEDS: cefTRIAXone 1,000 MG in Water for inj. (sterile) 20 ML 10 ML IVP SCH (08:09)
[2018-01-02] MEDS: Baclofen 10 MG TABLET PO SCH ×3 (08:09→21:10)
[2018-01-02] MEDS: Diltiazem SR (12hr) 60 MG CAPSULE PO SCH (08:09)
[2018-01-02] MEDS: hydrOXYzine pamoate 25 MG CAPSULE PO SCH ×2 (08:09→21:10)
[2018-01-02] MEDS ORDERED: Isovue-370 500 ML INFUS..BTL IV ONE (09:23)
--- NOTE | 2018-01-02 09:31 | Internal Med Progress Note ---
Hospitalist Progress Note - Encounter Date of Encounter: 01/02/18 Time of Encounter: 09:26 - Subjective Interval History: Seen and examined at bedside, patient is new to me. Information obtained from chart review and patient report. Says she is still a little SOB and has a headache but overall feels better on my exam. Has a non-productive cough. No chest pain. - Exam Vitals: Temp Pulse Resp BP Pulse Ox 97.8 F 85 18 130/81 99 01/02/18 06:21 01/02/18 06:21 01/02/18 06:21 01/02/18 06:21 01/02/18 08:20 Exam: General appearance: Present: A&O X 3, appears acutely ill - Head Head exam: Present: atraumatic, normocephalic - Eye Eye exam: Present: PERRL, conjuntiva pink, sclera anicteric Pupils: Present: PERRL - Neck Neck exam general surgery: Present: supple, trachea midline. Absent: lymphadenopathy - Respiratory Respiratory exam: Present: Lung sounds diminished with scattered wheezing and right lower lobe rhonchi. No crackles or rales - Cardiovascular Cardiovascular exam: Present: RRR, +S1, +S2. Absent: diastolic murmur, gallop, rubs, systolic murmur - GI/Abdominal GI/Abdominal exam: Present: normal bowel sounds, soft, no peritoneal signs. Absent: distended, tenderness - Extremities Exam Extremities exam: Present: warm, radial pulses palpable and symmetrical. Absent : calf tenderness, cyanotic, pedal edema - Neurological Exam Neurological exam: Present: CN II-XII intact, oriented X3, no focal deficits. Absent: pronater drift, facial droop, speech deficit - Skin Skin exam: Present: dry, intact - Assessment and Plan (1) Acute respiratory failure with hypoxia Current Visit: Yes Status: Acute Assessment and Plan: presented with SOB, O2 saturation 78% on room air. Likely multifactorial with pneumonia, possible pulmonary edema and underlying COPD. Cont treating underlying causes as noted below. Supplemental O2 abd BiPAP PRN. Chest CTA pending. Consider pulmonology consultation if symptoms do not improve (2) Pneumonia Current Visit: Yes Status: Acute Assessment and Plan: recently treated and discharged on Omnicef. CXR with new left lung airspace disease concerning for pulmonary edema or pneumonia. Clinically symptoms appear more consistent with pneumonia with low-grade fever, cough and rhonchi on exam. Recent urinary antigens negative. Resp PCR negative. Chest CTA pending for evaluation of possible pneumonia. Cont IV ceftriaxone and azithromycin. (3) Acute exacerbation of chronic obstructive pulmonary disease (COPD) Current Visit: Yes Status: Acute Assessment and Plan: suspected. Former smoker. Presented with shortness of breath was found to be hypoxic. Symptomatic with cough, wheezing on exam. Cont ceftriaxone, add azithromycin for anti-inflammatory properties. Steroid burst. PRN nebs. (4) Acute on chronic diastolic (congestive) heart failure Current Visit: Yes Status: Acute Assessment and Plan: per hx. 12/24/17 TTE with EF 60% and mild diastolic dysfunction. CXR with new airspace opacification in the left lung suggesting pulmonary edema. BNP 152. Not on lasix at home. Received one-time dose IV Lasix on admission. Clinically does not appear overloaded; no lower extremity edema, no crackles or rales noted on exam. Hold on further Lasix at this time with recent SOREN. Cont strict I&O's, daily weights and fluid restriction. (5) Depression Current Visit: Yes Status: Chronic Assessment and Plan: per hx. Continue home meds (6) Anemia Current Visit: Yes Status: Chronic Assessment and Plan: chronic, stable, continue to monitor (7) Essential hypertension Current Visit: Yes Status: Chronic Assessment and Plan: per hx. BP controlled. Cont home BP medications (8) Anxiety Current Visit: Yes Status: Chronic Assessment and Plan: per hx. Continue home meds (9) Sepsis Current Visit: Yes Status: Acute Assessment and Plan: with tachycardia, tachypnea and pneumonia on chest x-ray. recent treatment for pneumonia and recent hospitalization. WBC 13K, lactic acid normal. During admission this week, the patient developed acute kidney injury with exposure to vancomycin. At this time, risk of MRSA is low, will hold off vancomycin at this time. Continue ceftriaxone daily, and doxycycline for atypical coverage. Blood cx's pending DVT Prophylaxis: lovenox - Time Spent with Patient Total time spent is greater than 50% in coordination of care (as documented) at patient's floor/unit and/or counseling patient: Internal Medicine: Result - Labs CBC & Chem 7: 01/02/18 05:57 01/02/18 05:57 Labs: Short CBC 01/02/18 Range/Units 05:57 WBC 13.9 H (4.3-11.1) K/mcL Hgb 10.8 L (11.5-15.4) g/dL Hct 32.8 L (35.3-44.9) % Plt Count 286 (140-400) K/mcL Neutrophils # 11.6 H (1.6-8.9) K/mcL BMP 01/02/18 05:57 Sodium 138 Potassium 3.4 L Chloride 104 Carbon Dioxide 23 BUN 6 Creatinine 0.76 Glucose 102 Calcium 8.5 L Consult Discharge Plan - Plan Referrals: Iman Monae, JOB SPECIFICATION WRITER [Partnered Physician] - (2) Pneumonia Qualifiers: Pneumonia type: due to unspecified organism Laterality: bilateral Lung location: lower lobe of lung Qualified Code(s): J18.1 - Lobar pneumonia, unspecified organism (5) Depression Qualifiers: Depression Type: unspecified Qualified Code(s): F32.9 - Major depressive disorder, single episode, unspecified (6) Anemia Qualifiers: Anemia type: unspecified type Qualified Code(s): D64.9 - Anemia, unspecified (9) Sepsis Qualifiers: Sepsis type: sepsis due to unspecified organism Qualified Code(s): A41.9 - Sepsis, unspecified organism
[2018-01-02] MEDS: predniSONE 20 MG TABLET PO SCH (10:27)
[2018-01-02] MEDS: Acetaminophen 325 MG TABLET PO PRN (10:28)
[2018-01-02] MEDS ORDERED: Azithromycin 500 MG in D5% in Water 250 ML IVPB ONE (10:30)
[2018-01-02] MEDS ORDERED: Ipratropium/Albuterol Neb 3 ML IH PRN (10:30)
[2018-01-02] MEDS ORDERED: Ketorolac 30 MG/ML VIAL IVP ONE (15:26)
[2018-01-02] MEDS ORDERED: Furosemide 40 MG/4 ML VIAL ONE (15:38)
[2018-01-02] MEDS: Furosemide 40 MG/4 ML VIAL IVP SCH (15:44)
[2018-01-02] MEDS ORDERED: *HR* Promethazine 25 MG/ML VIAL IVP PRN (19:01)
[2018-01-02] MEDS: rOPINIRole 0.25 MG TABLET PO SCH (21:10)
[2018-01-02] MEDS: chlorproMAZINE 25 MG TABLET PO SCH (21:10)
[2018-01-03 01:53] LABS: ABG Base Excess 2 mEq/L (-2 to 3); ABG HCO3 27 mEq/L (21-27); ABG Oxygen Saturation 98 % (95-98); ABG PCO2 41 mmHg (35-45); ABG PH 7.42 pH Units (7.32-7.45); ABG PO2 98 mmHg (85-104); ABG TCO2 28 mEq/L (20-26); Blood Gas Modality NIV
[2018-01-03] MEDS: *HR* Enoxaparin 40 MG/0.4 ML SYRINGE SQ SCH (05:53)
[2018-01-03 06:35] LABS: BUN/Creatinine Ratio 19 (6-26); Blood Urea Nitrogen 17 mg/dL (6-20); Calcium 8.9 mg/dL (8.6-10.3); Carbon Dioxide 26 mEq/L (23-29); Chloride 106 mEq/L (98-107); Glucose 120 mg/dL (70-105); Osmolality,Calculated 295 (280-300); Potassium 3.8 mEq/L (3.5-5.1); Sodium 141 mEq/L (136-145); eGFR For Non-African Americans > 60 (> 60)
[2018-01-03 06:40] LABS: Hematocrit 33.1 % (35.3-44.9); Hemoglobin 10.7 g/dL (11.5-15.4); Mean Corpuscular HGB Conc 32.3 g/dL (31.6-35.5); Mean Corpuscular Hemoglobin 29.6 pg (28.0-33.3); Mean Corpuscular Volume 91.4 fL (83.0-100.0); Mean Platelet Volume 8.9 fL (9.4-12.4); Platelet Count 298 K/mcL (140-400); Red Blood Count 3.62 M/mcL (3.82-4.97); Red Cell Distribution Width 12.9 % (11.5-14.5)
--- NOTE | 2018-01-03 09:09 | Internal Med Progress Note ---
Hospitalist Progress Note - Encounter Date of Encounter: 01/03/18 Time of Encounter: 09:07 - Subjective Interval History: Reporting dyspnea, worse with exertion, denies any fevers, admits to non- productive cough; still requiring 5l simple mask for respiratory support. Discussed POC, patient verbalized understanding and denies any further questions. - Exam Vitals: Temp Pulse Resp BP Pulse Ox 97.6 F 76 24 100/52 97 01/03/18 03:20 01/03/18 03:20 01/03/18 04:16 01/03/18 04:16 01/03/18 04:16 Exam: General appearance: Present: A&O X 3, appears acutely ill - Eye Eye exam: Present: PERRL, conjuntiva pink, sclera anicteric Pupils: Present: PERRL - Neck Neck exam general surgery: Present: supple, trachea midline. Absent: lymphadenopathy - Respiratory Respiratory exam: Present: Lung sounds diminished with scattered expiratory wheezing, RLL rhonchi, No crackles or rales - Cardiovascular Cardiovascular exam: Present: RRR, +S1, +S2. Absent: diastolic murmur, gallop, rubs, systolic murmur - GI/Abdominal GI/Abdominal exam: Present: normal bowel sounds, soft, no peritoneal signs. Absent: distended, tenderness - Extremities Exam Extremities exam: Present: warm, radial pulses palpable and symmetrical. Absent : calf tenderness, cyanotic, pedal edema - Neurological Exam Neurological exam: Present: CN II-XII intact,no focal deficits. Absent: pronater drift, facial droop, speech deficit - Skin Skin exam: Present: dry, intact - Assessment and Plan (1) Pneumonia Current Visit: Yes Status: Acute Assessment and Plan: Recent admission for PNA, d/c on Omnicef presents with dyspnea and hypoxia CXR WITH new left lung airspace disease concerning for pulmonary edema or pneumonia. CTA 01/02- for evaluation of PNA VS PE, found to show scattered B/L gound glass densities and airspace disease suggestive of pulmonary edema. 01/03-- However, clinically, symptoms also appear to be consistent with pneumonia with low-grade fever, cough and rhonchi on exam. Respiratory status continuing to be tenuous, on 5L simple mask now, dyspnea with activity, reports better with rest. Continue IV abx rocephin and azithromycin, continue resp support; titrate O2 PRN, to maintain spo2 >92%, continue with lasix, (net negative fluid volume of -1069) iv steroids and aerosols. Recent TTE 12/23/17 with mild LV DD, also, consider ARDS as cause of respiratory failure Recent urinary antigens negative Resp PCR negative. continue BiPap PRN (2) Acute respiratory failure with hypoxia Current Visit: Yes Status: Acute Assessment and Plan: presented with SOB, O2 saturation 78% on room air No on chronic O2 at home; this is acute Likely multifactorial with pneumonia, pulmonary edema per CXR AND CTA. Also has underlying COPD. see above for plan consider pulm consult if patient does not improve (3) Depression Current Visit: Yes Status: Chronic Assessment and Plan: per hx. Continue home antidepressants (4) Anemia Current Visit: Yes Status: Chronic Assessment and Plan: chronic, stable, no s/sx of bleeding, continue to monitor (5) Essential hypertension Current Visit: Yes Status: Chronic Assessment and Plan: per hx. BP controlled, but borderline low this morning at 100/52, continue to closely monitor. Cont home BP medications (6) Anxiety Current Visit: Yes Status: Chronic Assessment and Plan: per hx. Continue anxiety meds (7) Sepsis Current Visit: Yes Status: Acute Assessment and Plan: with mild fever, tachycardia, tachypnea and pneumonia vs pulmonary edema on chest x-ray; CTA shows pulmonary edema recent treatment for pneumonia and recent hospitalization. refrain form vancomycin with risk for hospital PNA, received vancomycin last admission; SOREN with vanc; risk for MRSA is low 01/03--WBC 16k, afebrile x24 hours, dyspnea improving, tachypnea persists, continues to require high-flow o2 for respiratory supportthis time, risk of MRSA is low, Continue ceftriaxone daily, and doxycycline for atypical coverage Blood cx's pending RIP neg Recent negative legionella and strep pneumo urinary antigen see above (8) Acute on chronic diastolic (congestive) heart failure Current Visit: Yes Status: Acute Assessment and Plan: per hx. 12/24/17 TTE with EF 60% and mild diastolic dysfunction. CXR with new airspace opacification in the left lung suggesting pulmonary edema. CTA show the same, no PE or PNA elevated BNP 152 on admission. Not on lasix at home; received throught stay; monitor close as she has recent h/ o SOREN with vanc use Cont strict I&O's, daily weights and fluid restriction daily CBC, BMP (9) Acute exacerbation of chronic obstructive pulmonary disease (COPD) Current Visit: Yes Status: Acute Assessment and Plan: see above DVT Prophylaxis: continue lovenox - Time Spent with Patient Total time spent is greater than 50% in coordination of care (as documented) at patient's floor/unit and/or counseling patient: 25 - 35 minutes Plan of Care Discussed with: patient Internal Medicine: Result - Labs CBC & Chem 7: 01/03/18 04:00 01/03/18 04:00 Labs: Short CBC 01/03/18 Range/Units 04:00 WBC 16.3 H (4.3-11.1) K/mcL Hgb 10.7 L (11.5-15.4) g/dL Hct 33.1 L (35.3-44.9) % Plt Count 298 (140-400) K/mcL BMP 01/03/18 04:00 Sodium 141 Potassium 3.8 Chloride 106 Carbon Dioxide 26 BUN 17 Creatinine 0.91 Glucose 120 H Calcium 8.9 - ABG Interpretation ABG results: ABG ABG pH 7.42 pH Units (7.32-7.45) 01/03/18 01:50 ABG pCO2 41 mmHg (35-45) 01/03/18 01:50 ABG pO2 98 mmHg (85-104) 01/03/18 01:50 ABG O2 Saturation 98 % (95-98) 01/03/18 01:50 - Impressions Impressions Chest CTA 01/02/18 11:30 IMPRESSION: 1. No acute pulmonary artery embolism. 2. Cardiomegaly with pulmonary edema and small bilateral pleural effusions. D/ /02/2018 12:44:46 Charles lPascencia MD / lgray Interpreting Provider: Charles Plascencia MD - VTE Documentation of Mechanical Device: Intermittent pneumatic compression device Consult Discharge Plan - Plan Referrals: Iman Monae, GANG MOWER OPERATOR [Partnered Physician] - (1) Pneumonia Qualifiers: Pneumonia type: due to unspecified organism Laterality: bilateral Lung location: lower lobe of lung Qualified Code(s): J18.1 - Lobar pneumonia, unspecified organism (3) Depression Qualifiers: Depression Type: unspecified Qualified Code(s): F32.9 - Major depressive disorder, single episode, unspecified (4) Anemia Qualifiers: Anemia type: unspecified type Qualified Code(s): D64.9 - Anemia, unspecified (7) Sepsis Qualifiers: Sepsis type: sepsis due to unspecified organism Qualified Code(s): A41.9 - Sepsis, unspecified organism
[2018-01-03] MEDS: predniSONE 20 MG TABLET PO SCH (09:11)
[2018-01-03] MEDS: hydrOXYzine pamoate 25 MG CAPSULE PO SCH ×2 (09:11→20:15)
[2018-01-03] MEDS: Diltiazem SR (12hr) 60 MG CAPSULE PO SCH (09:11)
[2018-01-03] MEDS: cefTRIAXone 1,000 MG in Water for inj. (sterile) 20 ML 10 ML IVP SCH (09:12)
[2018-01-03] MEDS: Furosemide 40 MG/4 ML VIAL IVP SCH (09:12)
[2018-01-03] MEDS: Baclofen 10 MG TABLET PO SCH ×3 (09:12→20:16)
[2018-01-03] MEDS: Aspirin Enteric Coated 81 MG Tablet PO SCH (09:12)
--- NOTE | 2018-01-03 11:35 | Electrocardiograph Report ---
[address] [address] Test Date: 2018-01-01 Pat Name: Angela Montoya Department: EXAM4 Room: 3A37 Gender: F Medical Case Manager: : [id number] Requested By: Kaz Marin Order Number: [id number] Reading MD: Shukri Cook Measurements Intervals [place] Rate: 106 P: 43 AK: 151 QRS: 14 QRSD: 103 T: 17 QT: 373 QTc: 496 Interpretive Statements Sinus tachycardia Probable left atrial enlargement RSR' in V1 or V2, right VCD or RVH Borderline prolonged QT interval Electronically Signed On 01-03-2018 11:33:17 EDT by Shukri Cook
[2018-01-03] MEDS: Doxycycline 100 MG in 0.9 % Sodium Chloride Mini Bag 100 ML IVPB SCH ×2 (15:15→23:46)
[2018-01-03] MEDS: Acetaminophen 325 MG TABLET PO PRN (20:14)
[2018-01-03] MEDS: rOPINIRole 0.25 MG TABLET PO SCH (20:15)
[2018-01-03] MEDS: chlorproMAZINE 25 MG TABLET PO SCH (20:15)
[2018-01-04] MEDS: Acetaminophen 325 MG TABLET PO PRN (04:22)
[2018-01-04] MEDS ORDERED: rOPINIRole 0.25 MG TABLET PO ONE (04:51)
[2018-01-04] MEDS: Azithromycin 250 MG in D5% in Water 250 ML IVPB SCH ×2 (05:27→14:24)
[2018-01-04] MEDS: *HR* Enoxaparin 40 MG/0.4 ML SYRINGE SQ SCH (05:27)
[2018-01-04] MEDS: Diltiazem SR (12hr) 60 MG CAPSULE PO SCH (07:43)
[2018-01-04] MEDS: hydrOXYzine pamoate 25 MG CAPSULE PO SCH ×2 (07:43→21:08)
[2018-01-04] MEDS: Baclofen 10 MG TABLET PO SCH ×3 (07:43→21:08)
[2018-01-04] MEDS: Aspirin Enteric Coated 81 MG Tablet PO SCH (07:43)
[2018-01-04] MEDS: predniSONE 20 MG TABLET PO SCH (07:43)
[2018-01-04] MEDS: cefTRIAXone 1,000 MG in Water for inj. (sterile) 20 ML 10 ML IVP SCH (07:43)
[2018-01-04] MEDS: Furosemide 40 MG/4 ML VIAL IVP SCH (07:44)
--- NOTE | 2018-01-04 10:24 | Internal Med Progress Note ---
Hospitalist Progress Note - Encounter Date of Encounter: 01/04/18 Time of Encounter: 10:21 - Subjective Interval History: Reporting dyspnea is improving; continues to have non-productive cough. Denies any fevers, or chills. Respiratory status improving no requiring 3L simple mask for respiratory support. Discussed POC, patient verbalized understanding and denies any further questions. - Exam Vitals: Temp Pulse Resp BP Pulse Ox 97.8 F 79 15 109/59 92 01/04/18 07:13 01/04/18 07:13 01/04/18 07:13 01/04/18 07:13 01/04/18 07:13 Exam: General appearance: Present: A&O X 3, appears acutely ill - Eye Eye exam: Present: PERRL, conjuntiva pink, sclera anicteric Pupils: Present: PERRL - Neck Neck exam general surgery: Present: supple, trachea midline. Absent: lymphadenopathy - Respiratory Respiratory exam: Present: B/L rales upper and middle lobes AP&L, more air movement this morning when compared to yesterday - Cardiovascular Cardiovascular exam: Present: RRR, +S1, +S2. Absent: diastolic murmur, gallop, rubs, systolic murmur - GI/Abdominal GI/Abdominal exam: Present: normal bowel sounds, soft, no peritoneal signs. Absent: distended, tenderness - Extremities Exam Extremities exam: Present: warm, radial pulses palpable and symmetrical. Absent : calf tenderness, cyanotic, pedal edema - Neurological Exam Neurological exam: Present: CN II-XII intact,no focal deficits. Absent: pronater drift, facial droop, speech deficit - Skin Skin exam: Present: dry, intact - Assessment and Plan (1) Pneumonia Current Visit: Yes Status: Acute Assessment and Plan: Recent admission for PNA, d/c on Omnicef presents with dyspnea and hypoxia 2/2 CHF and PNA CXR with new left lung airspace disease concerning for pulmonary edema or pneumonia most likely both. CTA 01/02- for evaluation of PNA VS PE, found to show scattered B/L gound glass densities and airspace disease suggestive of pulmonary edema. 01/04--Clinically, patient is improving, does not appear to have respiratory distress at rest, on 3L simple mask. Afebrile for the last 72 hours, Labs pending; leukocytosis yesterday, WBC 16.3. Lungs have rales but she is moving more air today. Continue with lasix, net neg fluid volume -499; continue with fluid restriction, iv steroids and aerosols. Give an additional dose of lasix 40mg this evening x1. When she is stable from a respiratory perspective she will need PT/OT. Recent TTE 12/23/17 with mild LV DD, also, consider ARDS as cause of respiratory failure Recent urinary antigens negative Resp PCR negative. continue BiPap PRN daily labs (2) Acute respiratory failure with hypoxia Current Visit: Yes Status: Acute Assessment and Plan: as above (3) Depression Current Visit: Yes Status: Chronic Assessment and Plan: per hx. TAking home antidepressants (4) Anemia Current Visit: Yes Status: Chronic Assessment and Plan: per hx stable, no s/sx of bleeding, continue to monitor (5) Essential hypertension Current Visit: Yes Status: Chronic Assessment and Plan: per hx. BP controlled, continues to be borderline low continue to closely monitor. Cont home BP medications for now (6) Anxiety Current Visit: Yes Status: Chronic Assessment and Plan: taking home anxiety meds does not appear anxious (7) Sepsis Current Visit: Yes Status: Acute Assessment and Plan: with mild fever, tachycardia, tachypnea and pneumonia vs pulmonary edema on chest x-ray; CTA shows pulmonary edema recent treatment for pneumonia and recent hospitalization. refrain form vancomycin with risk for hospital PNA, received vancomycin last admission; SOREN with vanc; risk for MRSA is low Blood cx's pending RIP neg Recent negative legionella and strep pneumo urinary antigen see above 01/04 (8) Acute on chronic diastolic (congestive) heart failure Current Visit: Yes Status: Acute Assessment and Plan: per hx. 12/24/17 TTE with EF 60% and mild diastolic dysfunction. CXR with new airspace opacification in the left lung suggesting pulmonary edema. CTA show the same, no PE or PNA elevated BNP 152 on admission. Not on lasix at home; received throught stay; monitor close as she has recent h/ o SOREN with vanc use Cont strict I&O's, daily weights and fluid restriction daily CBC, BMP (9) Acute exacerbation of chronic obstructive pulmonary disease (COPD) Current Visit: Yes Status: Acute Assessment and Plan: as above DVT Prophylaxis: continue lovenox - Time Spent with Patient Total time spent is greater than 50% in coordination of care (as documented) at patient's floor/unit and/or counseling patient: less than 15 minutes Plan of Care Discussed with: patient Internal Medicine: Result - Labs CBC & Chem 7: 01/03/18 04:00 01/03/18 04:00 - ABG Interpretation ABG results: ABG ABG pH 7.42 pH Units (7.32-7.45) 01/03/18 01:50 ABG pCO2 41 mmHg (35-45) 01/03/18 01:50 ABG pO2 98 mmHg (85-104) 01/03/18 01:50 ABG O2 Saturation 98 % (95-98) 01/03/18 01:50 - VTE Documentation of Mechanical Device: Intermittent pneumatic compression device Consult Discharge Plan - Plan Referrals: Iman Monae, SUSY [Partnered Physician] - (1) Pneumonia Qualifiers: Pneumonia type: due to unspecified organism Laterality: bilateral Lung location: lower lobe of lung Qualified Code(s): J18.1 - Lobar pneumonia, unspecified organism (3) Depression Qualifiers: Depression Type: unspecified Qualified Code(s): F32.9 - Major depressive disorder, single episode, unspecified (4) Anemia Qualifiers: Anemia type: unspecified type Qualified Code(s): D64.9 - Anemia, unspecified (7) Sepsis Qualifiers: Sepsis type: sepsis due to unspecified organism Qualified Code(s): A41.9 - Sepsis, unspecified organism
[2018-01-04 12:16] LABS: Hematocrit 35.5 % (35.3-44.9); Hemoglobin 11.3 g/dL (11.5-15.4); Mean Corpuscular HGB Conc 31.8 g/dL (31.6-35.5); Mean Corpuscular Hemoglobin 29.4 pg (28.0-33.3); Mean Corpuscular Volume 92.2 fL (83.0-100.0); Mean Platelet Volume 9.1 fL (9.4-12.4); Platelet Count 337 K/mcL (140-400); Red Blood Count 3.85 M/mcL (3.82-4.97); Red Cell Distribution Width 12.9 % (11.5-14.5)
[2018-01-04 14:04] LABS: BUN/Creatinine Ratio 20 (6-26); Blood Urea Nitrogen 21 mg/dL (6-20); Carbon Dioxide 28 mEq/L (23-29); Chloride 104 mEq/L (98-107); Glucose 125 mg/dL (70-105); Osmolality,Calculated 296 (280-300); Potassium 3.9 mEq/L (3.5-5.1); Sodium 141 mEq/L (136-145); eGFR For Non-African Americans 55 (> 60)
[2018-01-04] MEDS: Doxycycline 100 MG in 0.9 % Sodium Chloride Mini Bag 100 ML IVPB SCH (16:08)
[2018-01-04] MEDS ORDERED: Furosemide 40 MG/4 ML VIAL IVP ONE (21:00)
[2018-01-04] MEDS: chlorproMAZINE 25 MG TABLET PO SCH (21:08)
[2018-01-04] MEDS: rOPINIRole 0.25 MG TABLET PO SCH (21:08)
[2018-01-05] MEDS: Doxycycline 100 MG in 0.9 % Sodium Chloride Mini Bag 100 ML IVPB SCH ×3 (01:11→23:41)
[2018-01-05 04:04] LABS: Hematocrit 35.8 % (35.3-44.9); Hemoglobin 11.7 g/dL (11.5-15.4); Mean Corpuscular HGB Conc 32.7 g/dL (31.6-35.5); Mean Corpuscular Hemoglobin 29.6 pg (28.0-33.3); Mean Corpuscular Volume 90.6 fL (83.0-100.0); Mean Platelet Volume 8.9 fL (9.4-12.4); Platelet Count 336 K/mcL (140-400); Red Blood Count 3.95 M/mcL (3.82-4.97); Red Cell Distribution Width 12.6 % (11.5-14.5)
[2018-01-05 04:19] LABS: BUN/Creatinine Ratio 22 (6-26); Blood Urea Nitrogen 24 mg/dL (6-20); Calcium 9.3 mg/dL (8.6-10.3); Carbon Dioxide 29 mEq/L (23-29); Chloride 102 mEq/L (98-107); Glucose 97 mg/dL (70-105); Osmolality,Calculated 294 (280-300); Potassium 3.6 mEq/L (3.5-5.1); Sodium 140 mEq/L (136-145); eGFR For Non-African Americans 52 (> 60)
[2018-01-05] MEDS: *HR* Enoxaparin 40 MG/0.4 ML SYRINGE SQ SCH (07:16)
[2018-01-05] MEDS: predniSONE 20 MG TABLET PO SCH (08:28)
[2018-01-05] MEDS: Baclofen 10 MG TABLET PO SCH ×3 (08:28→20:01)
[2018-01-05] MEDS: hydrOXYzine pamoate 25 MG CAPSULE PO SCH ×2 (08:28→20:02)
[2018-01-05] MEDS: Aspirin Enteric Coated 81 MG Tablet PO SCH (08:28)
[2018-01-05] MEDS: cefTRIAXone 1,000 MG in Water for inj. (sterile) 20 ML 10 ML IVP SCH (08:29)
[2018-01-05] MEDS: Diltiazem SR (12hr) 60 MG CAPSULE PO SCH (10:33)
[2018-01-05] MEDS: Furosemide 40 MG/4 ML VIAL IVP SCH (10:33)
[2018-01-05] MEDS: Azithromycin 250 MG in D5% in Water 250 ML IVPB SCH (10:34)
[2018-01-05] MEDS ORDERED: Azithromycin 250 MG in D5% in Water 250 ML IVPB SCH (14:00)
--- NOTE | 2018-01-05 18:12 | Internal Med Progress Note ---
Hospitalist Progress Note - Encounter Date of Encounter: 01/05/18 Time of Encounter: 18:08 - Subjective Interval History: Reporting dyspnea is improving; continues to have non-productive cough. Respiratory status improving now requiring 2L nasal cannula for respiratory support. Able to have a conversation without dyspnea - Exam Vitals: Temp Pulse Resp BP Pulse Ox 97.9 F 86 15 111/74 97 01/05/18 14:12 01/05/18 14:12 01/05/18 14:12 01/05/18 14:12 01/05/18 14:12 Exam: General appearance: Present: A&O X 3, appears acutely ill - Eye Eye exam: Present: PERRL, conjuntiva pink, sclera anicteric Pupils: Present: PERRL - Neck Neck exam general surgery: Present: supple, trachea midline. Absent: lymphadenopathy - Respiratory Respiratory exam: Clear/diminished throughout AP and L; rales present yesterday but without rales today - Cardiovascular Cardiovascular exam: Present: RRR, +S1, +S2. Absent: diastolic murmur, gallop, rubs, systolic murmur - GI/Abdominal GI/Abdominal exam: Present: normal bowel sounds, soft, no peritoneal signs. Absent: distended, tenderness - Extremities Exam Extremities exam: Present: warm, radial pulses palpable and symmetrical. Absent : calf tenderness, cyanotic, pedal edema - Neurological Exam Neurological exam: Present: CN II-XII intact,no focal deficits. Absent: pronater drift, facial droop, speech deficit - Skin Skin exam: Present: dry, intact - Assessment and Plan (1) Pneumonia Current Visit: Yes Status: Acute Assessment and Plan: Recent admission for PNA, d/c on Omnicef presents with dyspnea and hypoxia 2/2 CHF and PNA CXR with new left lung airspace disease concerning for pulmonary edema or pneumonia most likely both. CTA 01/02- for evaluation of PNA VS PE, found to show scattered B/L gound glass densities and airspace disease suggestive of pulmonary edema. 01/05--Clinically, patient is improving, does not appear to have respiratory distress at rest, on 2 L nasal cannula and remains Afebrile for the last 72 hours. Leukocytosis improving, lungs are clear/diminished today, Rales present yesterday but without rales today. Did not receive Lasix dose this morning due to hypotension. Continue to hold; continue with fluid restriction, iv steroids and aerosols. When she is stable from a respiratory perspective she will need PT /OT, may benefit from 6 minute walk test. Recent urinary antigens negative Resp PCR negative. continue BiPap PRN daily labs (2) Acute respiratory failure with hypoxia Current Visit: Yes Status: Acute Assessment and Plan: See above (3) Depression Current Visit: Yes Status: Chronic Assessment and Plan: per hx. TAking home antidepressants (4) Anemia Current Visit: Yes Status: Chronic Assessment and Plan: per hx stable, no s/sx of bleeding, H&H 11.7/35.8 continue to monitor (5) Essential hypertension Current Visit: Yes Status: Chronic Assessment and Plan: per hx. BP controlled, episodes of hypotension this morning, anti-HTN medications held. BP improving this evening continue to closely monitor. Cont home BP medications when appropriate (6) Anxiety Current Visit: Yes Status: Chronic Assessment and Plan: Per history, does not appear anxious this time, continue anxiolytics (7) Sepsis Current Visit: Yes Status: Acute Assessment and Plan: with mild fever, tachycardia, tachypnea and pneumonia vs pulmonary edema on chest x-ray; CTA shows pulmonary edema recent treatment for pneumonia and recent hospitalization. refrain form vancomycin with risk for hospital PNA, received vancomycin last admission; SOREN with vanc; risk for MRSA is low Blood cx's pending RIP neg Recent negative legionella and strep pneumo urinary antigen see above (8) Acute on chronic diastolic (congestive) heart failure Current Visit: Yes Status: Acute Assessment and Plan: per hx. 12/24/17 TTE with EF 60% and mild diastolic dysfunction. CXR with new airspace opacification in the left lung suggesting pulmonary edema. CTA show the same, no PE or PNA elevated BNP 152 on admission. Not on lasix at home; received throught stay; monitor close as she has recent h/ o SOREN with vanc use Cont strict I&O's, daily weights and fluid restriction daily CBC, BMP 01/05--clinically the patient is improving. Dyspnea on presentation multifactorial with pneumonia and CHF and see above for assessment and plan (9) Acute exacerbation of chronic obstructive pulmonary disease (COPD) Current Visit: Yes Status: Acute Assessment and Plan: As above DVT Prophylaxis: continue lovenox - Time Spent with Patient Total time spent is greater than 50% in coordination of care (as documented) at patient's floor/unit and/or counseling patient: less than 15 minutes Plan of Care Discussed with: patient Internal Medicine: Result - Labs CBC & Chem 7: 01/05/18 03:49 01/05/18 03:49 Labs: Short CBC 01/05/18 Range/Units 03:49 WBC 14.7 H (4.3-11.1) K/mcL Hgb 11.7 (11.5-15.4) g/dL Hct 35.8 (35.3-44.9) % Plt Count 336 (140-400) K/mcL BMP 01/05/18 03:49 Sodium 140 Potassium 3.6 Chloride 102 Carbon Dioxide 29 BUN 24 H Creatinine 1.07 Glucose 97 Calcium 9.3 - ABG Interpretation ABG results: ABG ABG pH 7.42 pH Units (7.32-7.45) 01/03/18 01:50 ABG pCO2 41 mmHg (35-45) 01/03/18 01:50 ABG pO2 98 mmHg (85-104) 01/03/18 01:50 ABG O2 Saturation 98 % (95-98) 01/03/18 01:50 - VTE Documentation of Mechanical Device: Intermittent pneumatic compression device Consult Discharge Plan - Plan Referrals: Iman Monae, ACCOUNTANT ASSISTANT [Partnered Physician] - (1) Pneumonia Qualifiers: Pneumonia type: due to unspecified organism Laterality: bilateral Lung location: lower lobe of lung Qualified Code(s): J18.1 - Lobar pneumonia, unspecified organism (3) Depression Qualifiers: Depression Type: unspecified Qualified Code(s): F32.9 - Major depressive disorder, single episode, unspecified (4) Anemia Qualifiers: Anemia type: unspecified type Qualified Code(s): D64.9 - Anemia, unspecified (7) Sepsis Qualifiers: Sepsis type: sepsis due to unspecified organism Qualified Code(s): A41.9 - Sepsis, unspecified organism
[2018-01-05] MEDS: chlorproMAZINE 25 MG TABLET PO SCH (20:00)
[2018-01-05] MEDS: rOPINIRole 0.25 MG TABLET PO SCH (20:01)
[2018-01-06 03:37] LABS: Hematocrit 35.6 % (35.3-44.9); Hemoglobin 11.4 g/dL (11.5-15.4); Mean Corpuscular Hemoglobin 29.4 pg (28.0-33.3); Mean Corpuscular Volume 91.8 fL (83.0-100.0); Mean Platelet Volume 8.8 fL (9.4-12.4); Platelet Count 352 K/mcL (140-400); Red Blood Count 3.88 M/mcL (3.82-4.97); Red Cell Distribution Width 12.7 % (11.5-14.5)
[2018-01-06 03:50] LABS: BUN/Creatinine Ratio 32 (6-26); Blood Urea Nitrogen 29 mg/dL (6-20); Carbon Dioxide 27 mEq/L (23-29); Chloride 104 mEq/L (98-107); Glucose 89 mg/dL (70-105); Osmolality,Calculated 293 (280-300); Potassium 4.3 mEq/L (3.5-5.1); Sodium 139 mEq/L (136-145); eGFR For Non-African Americans > 60 (> 60)
[2018-01-06] MEDS: *HR* Enoxaparin 40 MG/0.4 ML SYRINGE SQ SCH (05:12)
[2018-01-06] MEDS: cefTRIAXone 1,000 MG in Water for inj. (sterile) 20 ML 10 ML IVP SCH (10:32)
[2018-01-06] MEDS: hydrOXYzine pamoate 25 MG CAPSULE PO SCH ×2 (10:33→20:54)
[2018-01-06] MEDS: Aspirin Enteric Coated 81 MG Tablet PO SCH (10:33)
[2018-01-06] MEDS: predniSONE 20 MG TABLET PO SCH (10:33)
[2018-01-06] MEDS: Baclofen 10 MG TABLET PO SCH ×3 (10:33→20:55)
[2018-01-06] MEDS: Doxycycline 100 MG in 0.9 % Sodium Chloride Mini Bag 100 ML IVPB SCH (12:58)
--- NOTE | 2018-01-06 13:20 | Pulmonology Consult Note ---
Date of Encounter: 01/06/18 Time of Encounter: 13:20 Assessment and Plan (1) Acute respiratory failure with hypoxia Current Visit: Yes Status: Acute Currently saturating well on 3 L nasal cannula weaned to keep saturation greater than 89%. Incentive spirometry out of bed to chair and early ambulation with monitoring trial be useful adjuncts to mitigate the effects of VQ mismatching from atelectasis can develop in the inpatient setting (2) Interstitial pulmonary disease, unspecified Current Visit: No Status: Chronic Patient has long-standing history of recurrent admissions which the hallmark of been bilateral opacities. 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 Further vasculitic workup has been unremarkable including titers for ANCA LUANA rheumatoid factor etc. She has no clear medication exposure that would precipitate acute or chronic eosinophilic pneumonia or hypersensitivity She has undergone at least 2 bronchoscopies one of which was what was with lung biopsy at [facility] as well as an open lung biopsy here at [facility] I would treat her as nonspecific interstitial pneumonia and was start prednisone 60 mg with plan to taper at approximately the 4-6 week edgar depending on clinical/radiographic evaluation at that time Although she has a persistent loose leukocytosis I think it is much more likely related to the underlying interstitial pneumonia process from inflammation as opposed to infection from my standpoint I think the combination of doxycycline and azithromycin is redundant she could continue a course of azithromycin for 5- 7 days She will need outpatient pulmonary follow-up for this complex pulmonary pathology. I do tend to agree with the primary hospitalist and that I doubt this is a primary cardiac etiology i.e. heart failure with preserved ejection fraction although that may be playing a minor role (3) Tobacco abuse Current Visit: Yes Status: Acute It is imperative that the patient stop smoking completely tobacco cessation counseling given nicotine patch at discharge if needed (4) KHALIF (obstructive sleep apnea) Current Visit: Yes Status: Acute Continue CPAP at night I reinforced the need for compliance with this Thank you for this consultation History of Present Illness Consult date: 01/06/18 Requesting physician: Aram Foreman Reason for consult: hypoxemia, abnormal CXR/CT Chief complaint: Difficulty in breathing. History of present illness: This is a pleasant 57-year-old woman with past medical history of heart failure preserved ejection fraction depression and anxiety she is also had history of hypoxemic respiratory failure in fact she underwent lung biopsy last year for acute bilateral infiltrates with the concern for ILD flare. Furthermore this was complicated early part of this last year with severe hypoxemic respiratory failure with ARDS and requiring transfer to [facility] at that time. Patient has noted to have 3 hospitalizations within the last 2 weeks for hypoxemia and "pneumonia" most recently last week where she was discharged on a cephalosporin for strategy came back with increased shortness of breath but denied fevers chills cough or sputum production. She has been here she was treated with steroids and antibiotics to the leukocytosis on arrival but has been afebrile. Today when talking with her she states that she feels very good and is anticipating wanting to go home soon She does smoke she quit after lung biopsy but unfortunately is not back to smoking a few cigarettes a day she shares with her . No sick contacts or exotic pets exposure she has not traveled outside the [place]. She does have a history of obstructive sleep apnea but is intermittently compliant with CPAP Past Med Surg Social Fam HX - Past Medical History Medical history: arthritis, migraine Additional medical history: pt denies any history Psychiatric history: anxiety, bipolar, depression - Past Surgical History Surgical History: , cholecystectomy, herniorrhaphy, hysterectomy Additional surgical history: Lung BX- right. - Social History Smoking Status: Current some day smoker Smokeless Tobacco Status: No Alcohol use: none Drug use: none - Family History Father Living Status: Still Living Hx Family Cardiac Disorders: Yes (heart disease) Mother Adopted: No Family Member Ethnicity: Non- Living Status: Still Living Hx Family Cardiac Disorders: No Hx Family Respiratory Disorders: Yes (short of breath) Hx Family Cancer: No Hx Family GI Disorders: No Hx Family Endocrine Disorder: No Hx Family Neuromuscular Disorders: No Hx Family Neurologic Disorders: No Hx Family HEENT Disorders: No Hx Family Autoimmune Disorders: Yes (hyperthyroid) Grandfather Living Status: Hx Family Cardiac Disorders: Yes Medications and Allergies Aspirin [Lo-Dose Aspirin EC] 81 mg PO DAILY 12/24/17 [History] Baclofen [Lioresal] 10 mg PO TID 12/24/17 [History] Diltiazem SR (12hr) [Cardizem SR] 60 mg PO QAM 12/24/17 [History] Doxepin HCl 300 mg PO HS 12/24/17 [History] Nabumetone [Relafen] 500 mg PO TID 12/24/17 [History] Omeprazole [PriLOSEC] 40 mg PO DAILY 12/24/17 [History] PARoxetine HCl [Paroxetine HCl] 60 mg PO DAILY 12/24/17 [History] Propranolol [Inderal] 10 mg PO BID 12/24/17 [History] Ropinirole HCl [Requip] 0.5 mg PO HS 12/24/17 [History] chlorproMAZINE [Thorazine] 100 mg PO HS 30 Days #30 tablet 12/31/17 [Rx] hydrOXYzine HCl [Hydroxyzine HCl] 25 mg PO BID #0 12/31/17 [Rx] 3 Allergy/AdvReac Type Severity Reaction Status Date / Time metoclopramide [From Reglan] Allergy Mild Itching Verified 11/03/17 14:57 tramadol Allergy Mild Itching Verified 11/03/17 14:57 amitriptyline Allergy Itching Verified 11/03/17 14:57 codeine Allergy Hives Verified 11/03/17 14:57 Sulfa (Sulfonamide Allergy See Verified 11/03/17 14:57 Antibiotics) Comments sulfamethoxazole Allergy See Verified 11/03/17 14:57 [From Bactrim] Comments trimethoprim [From Bactrim] Allergy See Verified 11/03/17 14:57 Comments lorazepam [From Ativan] AdvReac Mild Anxiety Verified 11/03/17 14:57 benztropine [From Cogentin] AdvReac See Verified 11/03/17 14:57 Comments ciprofloxacin [From Cipro] AdvReac See Verified 11/03/17 14:57 Comments onabotulinumtoxinA AdvReac See Verified 11/03/17 14:57 [From Botox] Comments sertraline [From Zoloft] AdvReac Headache Verified 11/03/17 14:57 sumatriptan [From Imitrex] AdvReac Agitated Verified 11/03/17 14:57 topiramate [From Topamax] AdvReac See Verified 11/03/17 14:57 Comments All Systems: The remainder of the systems were reviewed and are negative Physical Examination Vital Signs: Vital Signs, Last 4 Hours Temp Pulse Resp BP Pulse Ox 01/06/18 10:49 97.4 F L 86 16 96/55 96 General appearance: no acute distress Eyes: nonicteric ENT: oropharynx moist Effort: normal Auscultation: bilateral: other (Patient has bilateral mid inspiratory squeaks noted on examination) Cardiovascular: regular rate and rhythm Gastrointestinal: normoactive bowel sounds, soft, non-tender Integumentary: normal Extremities: no cyanosis, no edema, no clubbing Musculoskeletal: no deformities normal mental status, non-focal exam mood appropriate Results - Laboratory Findings CBC and BMP: 01/06/18 03:20 01/06/18 03:20 ABG ABG pH 7.42 pH Units (7.32-7.45) 01/03/18 01:50 ABG pCO2 41 mmHg (35-45) 01/03/18 01:50 ABG pO2 98 mmHg (85-104) 01/03/18 01:50 ABG O2 Saturation 98 % (95-98) 01/03/18 01:50 Abnormal lab findings: Abnormal lab results WBC 15.2 K/mcL (4.3-11.1) H 01/06/18 03:20 Hgb 11.4 g/dL (11.5-15.4) L 01/06/18 03:20 MPV 8.8 fL (9.4-12.4) L 01/06/18 03:20 Neutrophils # 11.6 K/mcL (1.6-8.9) H 01/02/18 05:57 ABG Total CO2 28 mEq/L (20-26) H 01/03/18 01:50 BUN 29 mg/dL (6-20) H 01/06/18 03:20 BUN/Creatinine Ratio 32 (6-26) H 01/06/18 03:20 POC Glucose 193 mg/dL (70-99) H 01/03/18 20:10 - Diagnostic Findings Chest x-ray: report reviewed, image reviewed CT scan - chest: report reviewed, image reviewed - Clinical Findings Intake & Output: Intake & Output 01/05/18 01/06/18 01/06/18 23:59 07:59 15:59 Intake Total 360 / 360 100 / 100 240 / 240 Output Total 200 / 200 100 / 100 400 / 400 Balance 160 / 160 0 / 0 -160 / -160 Consult Discharge Plan - Plan Referrals: Iman Monae, SUSY [Partnered Physician] - 01/13/18 10:35 am
[2018-01-06] MEDS ORDERED: Azithromycin 500 MG in D5% in Water 250 ML IVPB SCH (14:00)
--- NOTE | 2018-01-06 14:01 | Internal Med Progress Note ---
Hospitalist Progress Note - Encounter Date of Encounter: 01/06/18 Time of Encounter: 10:40 - Subjective Interval History: States that her breathing continues to improve, denies any worsening cough or sputum production. No fever/chills. - Exam Vitals: Temp Pulse Resp BP Pulse Ox 97.4 F L 86 16 96/55 96 01/06/18 10:49 01/06/18 10:49 01/06/18 10:49 01/06/18 10:49 01/06/18 10:49 Exam: General: Alert and oriented, not in acute distress. Cardiovascular:Normal S1 & S2, No JVD. Pulse regular. Lungs: relatively clear to auscultation, unable to appreciate wheezes/rales Abdomen:Soft, non-tender, no rigidity. Extremities:No deformity or swelling Neurological:Normal cognition and motor skills. Non-focal - Assessment and Plan (1) Sepsis Current Visit: Yes Status: Acute Assessment and Plan: initially concerned for sepsis with mild fever, tachycardia, tachypnea with possible pneumonia recent hospitalization late November RIP neg refrain from vancomycin as she developed SOREN while on vanc; risk for MRSA also low will continue doxy/azithromycin for a total of 7-10 day course (2) Acute respiratory failure with hypoxia Current Visit: Yes Status: Acute Assessment and Plan: currently being treated for PNA and heart failure with symptomatic improvement, also on steroids which is being tapered appears to have recurrent admissions for similar complaints, with most of the CT scans showing bilateral GGO of varying degree ? Interstitial lung disease lung biopsy 03/2016: Diffuse subacute and organizing lung injury pattern with occasional eosinophils. PFT 07/2016: moderate restrictive disease with reduction in FVC and normal FEV1. ?need for further workup vs. repeat bx, pulm consult (3) Pneumonia Current Visit: Yes Status: Acute Assessment and Plan: Recent admission for PNA, d/c on Omnicef abx as above (4) Acute on chronic diastolic (congestive) heart failure Current Visit: Yes Status: Acute Assessment and Plan: Unimpressive echo finding on 12/24/17 with EF 60% and mild diastolic dysfunction. elevated BNP 152 on admission. CXR with new airspace opacification in the left lung suggesting pulmonary edema , consistent findings on CTA unsure how much it contributes to respiratory failure, patient's blood pressure also borderline low. Cr also slowly rising with BUN will d/c lasix and monitor (5) Acute exacerbation of chronic obstructive pulmonary disease (COPD) Current Visit: Yes Status: Acute Assessment and Plan: unclear whether patient truly has COPD as her smoking history is not very remarkable may need repeat PFT as an outpatient taper steroid as above bronchodilators (6) Depression Current Visit: Yes Status: Chronic Assessment and Plan: Continue home meds (7) Migraine Current Visit: Yes Status: Chronic Assessment and Plan: Propanolol on hold due to borderline blood pressure (8) Anxiety Current Visit: Yes Status: Chronic Assessment and Plan: continue anxiolytics DVT Prophylaxis: Subcutaneous Lovenox - Time Spent with Patient Total time spent is greater than 50% in coordination of care (as documented) at patient's floor/unit and/or counseling patient: Greater than 35 minutes Plan of Care Discussed with: patient (discussed with pulmonary) Internal Medicine: Result - Labs CBC & Chem 7: 01/06/18 03:20 01/06/18 03:20 Labs: Short CBC 01/06/18 Range/Units 03:20 WBC 15.2 H (4.3-11.1) K/mcL Hgb 11.4 L (11.5-15.4) g/dL Hct 35.6 (35.3-44.9) % Plt Count 352 (140-400) K/mcL BMP 01/06/18 03:20 Sodium 139 Potassium 4.3 Chloride 104 Carbon Dioxide 27 BUN 29 H Creatinine 0.91 Glucose 89 Calcium 9.0 - ABG Interpretation ABG results: ABG ABG pH 7.42 pH Units (7.32-7.45) 01/03/18 01:50 ABG pCO2 41 mmHg (35-45) 01/03/18 01:50 ABG pO2 98 mmHg (85-104) 01/03/18 01:50 ABG O2 Saturation 98 % (95-98) 01/03/18 01:50 - Impressions Impressions Chest CTA 01/02/18 11:30 IMPRESSION: 1. No acute pulmonary artery embolism. 2. Cardiomegaly with pulmonary edema and small bilateral pleural effusions. D/ /02/2018 12:44:46 Charles [facility] Interpreting Provider: Charles Plascencia MD - VTE Documentation of Mechanical Device: Intermittent pneumatic compression device Consult Discharge Plan - Plan Referrals: Iman Monae, PRODUCTION ASSEMBLY SUPERVISOR [Partnered Physician] - (1) Sepsis Qualifiers: Sepsis type: sepsis due to unspecified organism Qualified Code(s): A41.9 - Sepsis, unspecified organism (3) Pneumonia Qualifiers: Pneumonia type: due to unspecified organism Laterality: bilateral Lung location: lower lobe of lung Qualified Code(s): J18.1 - Lobar pneumonia, unspecified organism (6) Depression Qualifiers: Depression Type: unspecified Qualified Code(s): F32.9 - Major depressive disorder, single episode, unspecified (7) Migraine Qualifiers: Migraine type: unspecified
[2018-01-06] MEDS: rOPINIRole 0.25 MG TABLET PO SCH (20:54)
[2018-01-06] MEDS: chlorproMAZINE 25 MG TABLET PO SCH (20:54)
[2018-01-07] MEDS: Doxycycline 100 MG in 0.9 % Sodium Chloride Mini Bag 100 ML IVPB SCH (00:32)
[2018-01-07 04:49] LABS: Basophils % 0.2 %; Eosinophils % 0.3 %; Hemoglobin 11.9 g/dL (11.5-15.4); Immature Granulocytes % 1.3 % (0-4); Lymphocytes # 1.8 K/mcL (0.6-4.6); Lymphocytes % 11.4 %; Mean Corpuscular HGB Conc 32.2 g/dL (31.6-35.5); Mean Corpuscular Hemoglobin 29.2 pg (28.0-33.3); Mean Corpuscular Volume 90.7 fL (83.0-100.0); Monocytes # 0.9 K/mcL (0.0-1.3); Monocytes % 5.7 %; Neutrophils # 12.9 K/mcL (1.6-8.9); Platelet Count 337 K/mcL (140-400); Red Blood Count 4.08 M/mcL (3.82-4.97); Red Cell Distribution Width 12.4 % (11.5-14.5); Segmented Neutrophils % 81.1 %
[2018-01-07 05:09] LABS: BUN/Creatinine Ratio 37 (6-26); Blood Urea Nitrogen 34 mg/dL (6-20); Calcium 9.1 mg/dL (8.6-10.3); Carbon Dioxide 27 mEq/L (23-29); Chloride 104 mEq/L (98-107); Glucose 82 mg/dL (70-105); Magnesium 2.1 mg/dL (1.6-2.6); Osmolality,Calculated 295 (280-300); Potassium 4.6 mEq/L (3.5-5.1); Sodium 139 mEq/L (136-145); eGFR For Non-African Americans > 60 (> 60)
[2018-01-07] MEDS: *HR* Enoxaparin 40 MG/0.4 ML SYRINGE SQ SCH (05:53)
[2018-01-07] MEDS ORDERED: predniSONE 20 MG TABLET PO SCH (09:00)
--- NOTE | 2018-01-07 09:37 | Pulmonology Progress Note ---
Date of Encounter: 01/07/18 Time of Encounter: 09:37 Assessment and Plan (1) Acute respiratory failure with hypoxia Current Visit: Yes Status: Acute Continue supplemental oxygen to keep saturation greater than 88% (2) Interstitial pulmonary disease, unspecified Current Visit: No Status: Chronic Chronic interstitial pneumonia likely inflammatory in nature she will need to be treated with steroids with started 50 mg daily and to keep their for the next 2 weeks until pulmonary follow-up and we can discuss the timing/duration or plan for taper (3) Tobacco abuse Current Visit: Yes Status: Acute Strongly encouraged the patient to stop smoking Patient was strongly advised not to smoke while using oxygen or near someone who is on oxygen- risks of negro, fire and explosion were told and pt understood. (4) KHALIF (obstructive sleep apnea) Current Visit: Yes Status: Acute Continue CPAP at night Pulmonary will sign off she will need outpatient pulmonary follow-up within 1-2 weeks thank you for allowing us to participate in the care of this patient Subjective Principal diagnosis: Pneumonia Interval history: Denae is done well over the night. She says that her breathing is nearing baseline she denies any complaints no cough significant hemoptysis or wheezing. She is anxious to go home Objective PUL Vital signs: Last Vital Signs Temp 97.7 F 01/07/18 07:25 Pulse 89 01/07/18 07:25 Resp 16 01/07/18 07:25 BP 111/71 01/07/18 07:25 Pulse Ox 96 01/07/18 07:25 General appearance: no acute distress ENT: oropharynx moist Neck: no lymphadenopathy Effort: normal Auscultation: bilateral: wheezes (Mid-inspiratory "squeak") Cardiovascular: regular rate and rhythm Gastrointestinal: normoactive bowel sounds, soft, non-tender Integumentary: normal Extremities: no cyanosis, no edema, no clubbing Musculoskeletal: no deformities normal mental status, non-focal exam mood appropriate Results - Laboratory Findings CBC and BMP: 01/07/18 04:37 01/07/18 04:37 ABG ABG pH 7.42 pH Units (7.32-7.45) 01/03/18 01:50 ABG pCO2 41 mmHg (35-45) 01/03/18 01:50 ABG pO2 98 mmHg (85-104) 01/03/18 01:50 ABG O2 Saturation 98 % (95-98) 01/03/18 01:50 Abnormal lab findings: Abnormal lab results WBC 15.9 K/mcL (4.3-11.1) H 01/07/18 04:37 MPV 9.0 fL (9.4-12.4) L 01/07/18 04:37 Neutrophils # 12.9 K/mcL (1.6-8.9) H 01/07/18 04:37 ABG Total CO2 28 mEq/L (20-26) H 01/03/18 01:50 BUN 34 mg/dL (6-20) H 01/07/18 04:37 BUN/Creatinine Ratio 37 (6-26) H 01/07/18 04:37 POC Glucose 193 mg/dL (70-99) H 01/03/18 20:10 - Clinical Findings Intake & Output: Intake & Output 01/06/18 01/07/18 01/07/18 23:59 07:59 15:59 Intake Total 490 / 490 300 / 300 600 / 600 Output Total 150 / 150 500 / 500 Balance 340 / 340 -200 / -200 600 / 600 Weight 75.1 kg - VTE Documentation of Mechanical Device: Intermittent pneumatic compression device Consult Discharge Plan - Plan Instructions: Heart Failure (DC), Acute Respiratory Distress Syndrome (DC), Chronic Obstructive Pulmonary Disease (DC), Sepsis (DC), Anemia (GEN), Anxiety ( DC), Pneumonia (DC) Additional Instructions: Please call [facility] when you arrive home to have them deliver oxygen concentrator. The number is [phone]. Follow up with pulmonary in 2 weeks. Referrals: Iman Monae CNP [Partnered Physician] - 01/13/18 10:35 am Milan Jarvis MD [Partnered Physician] - 01/21/18 9:00 am Prescriptions: Ipratropium/Albuterol Neb [Duoneb] 3 ml IH [id number] PRN #30 inhsol PRN Reason: Shortness Of Breath/Wheezing Azithromycin [Zithromax] 250 mg PO DAILY #3 tablet predniSONE [PredniSONE] 50 mg PO DAILY 14 Days #35 tablet
[2018-01-07] MEDS: Baclofen 10 MG TABLET PO SCH (10:14)
[2018-01-07] MEDS: Aspirin Enteric Coated 81 MG Tablet PO SCH (10:14)
[2018-01-07] MEDS: hydrOXYzine pamoate 25 MG CAPSULE PO SCH (10:14)
--- NOTE | 2018-01-07 10:52 | Discharge Summary ---
- NOTES TO OUTPATIENT PROVIDER Notes to Outpatient Provider: Patient was admitted for recurrent type I respiratory failure initially attributed to a combination of pneumonia and decompensated heart failure. Upon further review of her chart for the last few hospitalizations, her signs and symptoms do not seem to be correlating with clear cut diagnosis of PNA +/- CHF and may be related to a form of interstitial lung disease. Previous biopsies have been negative. Pulmonary was consulted and agrees that she may have a form of interstitial lung disease and treat her as NSIP for now. She is treated with a course of doxy/azithro and will complete 7 day course of PO azithromycin. She is also sent home with PO Prednisone 50mg for 2 weeks with pulmonary follow up to decide on further steroid dosing. She will need close follow up with Pulmonary for her complex lung pathology. Date of Encounter: 01/07/18 Time of Encounter: 08:40 - Discharge Diagnosis (1) Sepsis Priority: Secondary Status: Acute Qualifiers: Sepsis type: sepsis due to unspecified organism Qualified Code(s): A41.9 - Sepsis, unspecified organism (2) Acute respiratory failure with hypoxia Priority: Primary Status: Acute (3) Pneumonia Priority: Secondary Status: Acute Qualifiers: Pneumonia type: due to unspecified organism Laterality: bilateral Lung location: lower lobe of lung Qualified Code(s): J18.1 - Lobar pneumonia, unspecified organism (4) Acute on chronic diastolic (congestive) heart failure Priority: Secondary Status: Acute (5) Acute exacerbation of chronic obstructive pulmonary disease (COPD) Priority: Secondary Status: Acute (6) Depression Priority: Secondary Status: Chronic Qualifiers: Depression Type: unspecified Qualified Code(s): F32.9 - Major depressive disorder, single episode, unspecified (7) Migraine Priority: Secondary Status: Chronic Qualifiers: Migraine type: unspecified Status migrainosus presence: without status migrainosus Intractability: not intractable Qualified Code(s): G43.909 - Migraine, unspecified, not intractable, without status migrainosus (8) Anxiety Priority: Secondary Status: Chronic Hospital course: Ms. Montoya is a 57 year old female was admitted for recurrent type I respiratory failure initially attributed to a combination of pneumonia and decompensated heart failure. Upon further review of her chart for the last few hospitalizations, her signs and symptoms do not seem to be correlating with clear cut diagnosis of PNA +/- CHF and may be related to a form of interstitial lung disease. Previous biopsies have been negative. Pulmonary was consulted and agrees that she may have a form of interstitial lung disease and treat her as NSIP for now. She is treated with a course of doxy/azithro and will complete 7 day course of PO azithromycin. She is also sent home with PO Prednisone 50mg for 2 weeks with pulmonary follow up to decide on further steroid dosing. She will need close follow up with Pulmonary for her complex lung pathology. Discharge discussed with: patient, case management, [employer] consultant - Time Spent with Patient Total time spent providing and/or coordinating discharge services: Greater than 30 minutes - Discharge Medications Prescriptions: Ipratropium/Albuterol Neb [Duoneb] 3 ml IH [id number] PRN #30 inhsol PRN Reason: Shortness Of Breath/Wheezing Azithromycin [Zithromax] 250 mg PO DAILY #3 tablet predniSONE [PredniSONE] 50 mg PO DAILY 14 Days #35 tablet Home Medications: Aspirin [Lo-Dose Aspirin EC] 81 mg PO DAILY 12/24/17 [History] Baclofen [Lioresal] 10 mg PO TID 12/24/17 [History] Diltiazem SR (12hr) [Cardizem SR] 60 mg PO QAM 12/24/17 [History] Doxepin HCl 300 mg PO HS 12/24/17 [History] Nabumetone [Relafen] 500 mg PO TID 12/24/17 [History] Omeprazole [PriLOSEC] 40 mg PO DAILY 12/24/17 [History] PARoxetine HCl [Paroxetine HCl] 60 mg PO DAILY 12/24/17 [History] Propranolol [Inderal] 10 mg PO BID 12/24/17 [History] Ropinirole HCl [Requip] 0.5 mg PO HS 12/24/17 [History] chlorproMAZINE [Thorazine] 100 mg PO HS 30 Days #30 tablet 12/31/17 [Rx] hydrOXYzine HCl [Hydroxyzine HCl] 25 mg PO BID #0 12/31/17 [Rx] Azithromycin [Zithromax] 250 mg PO DAILY #3 tablet 01/07/18 [Rx] Ipratropium/Albuterol Neb [Duoneb] 3 ml IH [id number] PRN #30 inhsol 01/07/18 [Rx] predniSONE [PredniSONE] 50 mg PO DAILY 14 Days #35 tablet 01/07/18 [Rx] Allergies/Adverse Reactions: 3 Allergy/AdvReac Type Severity Reaction Status Date / Time metoclopramide [From Reglan] Allergy Mild Itching Verified 11/03/17 14:57 tramadol Allergy Mild Itching Verified 11/03/17 14:57 amitriptyline Allergy Itching Verified 11/03/17 14:57 codeine Allergy Hives Verified 11/03/17 14:57 Sulfa (Sulfonamide Allergy See Verified 11/03/17 14:57 Antibiotics) Comments sulfamethoxazole Allergy See Verified 11/03/17 14:57 [From Bactrim] Comments trimethoprim [From Bactrim] Allergy See Verified 11/03/17 14:57 Comments lorazepam [From Ativan] AdvReac Mild Anxiety Verified 11/03/17 14:57 benztropine [From Cogentin] AdvReac See Verified 11/03/17 14:57 Comments ciprofloxacin [From Cipro] AdvReac See Verified 11/03/17 14:57 Comments onabotulinumtoxinA AdvReac See Verified 11/03/17 14:57 [From Botox] Comments sertraline [From Zoloft] AdvReac Headache Verified 11/03/17 14:57 sumatriptan [From Imitrex] AdvReac Agitated Verified 11/03/17 14:57 topiramate [From Topamax] AdvReac See Verified 11/03/17 14:57 Comments Date of admission: 01/02/18 03:42 Primary care physician: PCP NONE Consults: 01/02/18 13:51 Consult to Invasive Line Access Team [CONS] Routine Reason for Consult: limited vascular access Line Type: EPIV 01/06/18 13:03 Consult to Pulmonology [CONS] Routine Consulting Provider: [facility] [place] Reason for Consult: recurrent respiratory failure attributed to pneumonia and decompensated heart failure ?component of interstitial lung disease. Previous lung biopsy 03/2016 showed "diffuse subacute and organizing lung injury pattern with occasional eosinophils". Call Completed: Yes - Constitutional Vitals: Temp Pulse Resp BP Pulse Ox 97.7 F 89 16 111/71 96 01/07/18 07:25 01/07/18 07:25 01/07/18 07:25 01/07/18 07:25 01/07/18 07:25 General appearance: Present: A&O X 3, obese, severe distress Exam: General: Alert and oriented, not in acute distress. Cardiovascular:Normal S1 & S2, No JVD. Pulse regular. Lungs: relatively clear to auscultation, unable to appreciate wheezes/rales Abdomen:Soft, non-tender, no rigidity. Extremities:No deformity or swelling Neurological:Normal cognition and motor skills. Non-focal - Patient Status Disposition: Home, Self-Care Condition: Good Functional capacity at discharge: independent ambulation Overall status at discharge: patient is progressing back to baseline - Discharge Instructions Instructions: Acute Respiratory Distress Syndrome (DC), Heart Failure (DC), Chronic Obstructive Pulmonary Disease (DC), Sepsis (DC), Pneumonia (DC), Anemia (GEN), Anxiety (DC) Follow Up With: Iman Monae CNP [Partnered Physician] - 01/13/18 10:35 am Milan Jarvis MD [Partnered Physician] - Additional Instructions: Please call [facility] when you arrive home to have them deliver oxygen concentrator. The number is [phone]. Follow up with pulmonary in 2 weeks. - Diet and Activity Activity: resume usual activities as tolerated Diet: regular diet - VTE Documentation of Mechanical Device: Intermittent pneumatic compression device
[2018-01-07 11:49] VITALS: BP 96/63
== END 2018-01-07 14:25 | disposition home or self-care (01) | DRG 871 ==
LOC: 3BNU 15:01 → EMEROOARM 15:01 → 3ANU 18:24 → SUATTDRO 01-02 03:42 → 3ANU 01-04 03:44
PROVIDERS: ADMIT Internal Medicine; ATTEND Internal Medicine

== ENCOUNTER 2018-01-08 22:14 | Observation (INO) ==
[2018-01-09 00:20] LABS: Amphetamine Screen,Urine Negative ng/mL (Cutoff=1000); Barbiturate Screen,Urine Negative ng/mL (Cutoff=200); Benzodiazepines Screen,Urine Negative ng/mL (Cutoff=200); Cannabinoid Screen,Urine Negative ng/mL (Cutoff = 50); Cocaine Screen,Urine Negative ng/mL (Cutoff= 300); Opiate Screen,Urine Negative ng/mL (Cutoff=300); Phencyclidine Screen,Urine Negative ng/mL (Cutoff=25)
[2018-01-09 00:30] LABS: Bilirubin,Urine Negative (Negative); Blood,Urine Negative (Negative); Clarity,Urine Clear (Clear); Color,Urine Yellow (Yellow); Glucose,Urine (UA) Normal (Normal); Ketones,Urine Negative (Negative); Leukocyte Esterase,Urine Negative (Negative); Nitrite,Urine Negative (Negative); Protein,Urine Negative (Neg-Trace); Specific Gravity,Urine 1.012 (1.010-1.025); Urobilinogen,Urine Normal (Normal)
[2018-01-09 00:35] LABS: Alanine Aminotransferase 97 Units/L (7-52); Albumin 3.4 g/dL (3.5-5.7); Albumin/Globulin Ratio 1.2 (1.1-2.2); Alkaline Phosphatase 178 Units/L (34-104); Aspartate Amino Transferase 23 Units/L (13-39); BUN/Creatinine Ratio 34 (6-26); Bilirubin,Direct 0.1 mg/dL (0.0-0.2); Bilirubin,Indirect 0.1 mg/dL (0.0-1.2); Bilirubin,Total 0.2 mg/dL (0.3-1.0); Blood Urea Nitrogen 35 mg/dL (6-20); Calcium 9.1 mg/dL (8.6-10.3); Carbon Dioxide 24 mEq/L (23-29); Chloride 104 mEq/L (98-107); Ethanol < 10 mg/dL (Less than 10); Globulin 2.9 g/dL (2.4-3.5); Glucose 116 mg/dL (70-105); Osmolality,Calculated 295 (280-300); Potassium 4.8 mEq/L (3.5-5.1); Sodium 138 mEq/L (136-145); Total Protein 6.3 g/dL (6.4-8.9); Troponin I < 0.03 ng/mL (< 0.04); eGFR For Non-African Americans 55 (> 60)
[2018-01-09 00:41] LABS: Basophils % 0.1 %; Hematocrit 39.1 % (35.3-44.9); Hemoglobin 12.6 g/dL (11.5-15.4); Immature Granulocytes % 1.5 % (0-4); Lymphocytes # 0.7 K/mcL (0.6-4.6); Lymphocytes % 4.8 %; Mean Corpuscular HGB Conc 32.2 g/dL (31.6-35.5); Mean Corpuscular Hemoglobin 29.2 pg (28.0-33.3); Mean Corpuscular Volume 90.7 fL (83.0-100.0); Mean Platelet Volume 9.3 fL (9.4-12.4); Monocytes # 0.4 K/mcL (0.0-1.3); Monocytes % 2.3 %; Neutrophils # 13.8 K/mcL (1.6-8.9); Platelet Count 403 K/mcL (140-400); Red Blood Count 4.31 M/mcL (3.82-4.97); Red Cell Distribution Width 12.7 % (11.5-14.5); Segmented Neutrophils % 91.3 %
[2018-01-09 00:54] LABS: Prothrombin Time 11.6 Seconds (9.4-12.1)
[2018-01-09 00:57] LABS: Activated Partial Thrombo Time 50.3 Seconds (26.0-36.0)
--- NOTE | 2018-01-09 02:34 | Emergency Department Note ---
Disposition Clinical Impression: Fall Qualifiers: Encounter type: initial encounter Qualified Code(s): W19.XXXA - Unspecified fall, initial encounter Leukocytosis Qualifiers: Leukocytosis type: unspecified Qualified Code(s): D72.829 - Elevated white blood cell count, unspecified Disposition: Home, Self-Care Condition: Good Instructions: Fall Prevention (ED) Reasons to Return/Additional Instructions: Please follow up with your primary care provider in 3-5 days I have provided information to the [facility] residency clinic. Please return to the emergency department if you have any worsening of your symptoms including Referrals: NONE,PCP [Primary Care Provider] - [facility] [Outside] Time of Disposition: 03:02 General Adult HPI - General Chief complaint: ED Neck Pain/Injury Stated complaint: neck pain fall Time Seen by Provider: 01/08/18 22:34 Source: patient, EMS Mode of arrival: EMS Limitations: no limitations Nursing Notes Reviewed: Yes Vital Signs Reviewed: Yes - History of Present Illness HPI Narrative: Patient is a 57-year-old female that comes into the emergency department after a fall complaining of neck pain. Patient is unable to state exactly what happened. Patient denies any loss of consciousness. Patient provides little history of the incident. Patient denies being on any blood thinners. Pain Scale: 9 - Related Data Home Medications Medication Instructions Recorded Confirmed Aspirin [Lo-Dose Aspirin EC] 81 mg PO DAILY 12/24/17 01/01/18 Baclofen [Lioresal] 10 mg PO TID 12/24/17 01/01/18 Diltiazem SR (12hr) [Cardizem SR] 60 mg PO QAM 12/24/17 01/01/18 Doxepin HCl 300 mg PO HS 12/24/17 01/01/18 Nabumetone [Relafen] 500 mg PO TID 12/24/17 01/01/18 Omeprazole [PriLOSEC] 40 mg PO DAILY 12/24/17 01/01/18 PARoxetine HCl [Paroxetine HCl] 60 mg PO DAILY 12/24/17 01/01/18 Propranolol [Inderal] 10 mg PO BID 12/24/17 01/01/18 Ropinirole HCl [Requip] 0.5 mg PO HS 12/24/17 01/01/18 Previous Rx's Medication Instructions Recorded chlorproMAZINE [Thorazine] 100 mg PO HS 30 Days #30 tablet 12/31/17 hydrOXYzine HCl [Hydroxyzine HCl] 25 mg PO BID #0 12/31/17 Azithromycin [Zithromax] 250 mg PO DAILY #3 tablet 01/07/18 Ipratropium/Albuterol Neb [Duoneb] 3 ml IH [id number] PRN #30 inhsol 01/07/18 predniSONE [PredniSONE] 50 mg PO DAILY 14 Days #35 tablet 01/07/18 Allergies Allergy/AdvReac Type Severity Reaction Status Date / Time metoclopramide [From Reglan] Allergy Mild Itching Verified 11/03/17 14:57 tramadol Allergy Mild Itching Verified 11/03/17 14:57 amitriptyline Allergy Itching Verified 11/03/17 14:57 codeine Allergy Hives Verified 11/03/17 14:57 Sulfa (Sulfonamide Allergy See Verified 11/03/17 14:57 Antibiotics) Comments sulfamethoxazole Allergy See Verified 11/03/17 14:57 [From Bactrim] Comments trimethoprim [From Bactrim] Allergy See Verified 11/03/17 14:57 Comments lorazepam [From Ativan] AdvReac Mild Anxiety Verified 11/03/17 14:57 benztropine [From Cogentin] AdvReac See Verified 11/03/17 14:57 Comments ciprofloxacin [From Cipro] AdvReac See Verified 11/03/17 14:57 Comments onabotulinumtoxinA AdvReac See Verified 11/03/17 14:57 [From Botox] Comments sertraline [From Zoloft] AdvReac Headache Verified 11/03/17 14:57 sumatriptan [From Imitrex] AdvReac Agitated Verified 11/03/17 14:57 topiramate [From Topamax] AdvReac See Verified 11/03/17 14:57 Comments All systems ED: reviewed and negative except as stated. Cardiovascular: Denies: chest pain Respiratory: Denies: dyspnea Musculoskeletal: Reports: neck pain Past Medical History - Past Medical History Medical history: Reports: arthritis, migraine Surgical history: Reports: , cholecystectomy, herniorrhaphy, hysterectomy Psychiatric history: Reports: anxiety, bipolar, depression CLINICAL EDUCATION ASSISTANT history: Reports: no CLINICAL EDUCATION ASSISTANT history, other - Social History Smoking Status: Current some day smoker Smokeless Tobacco Status: No Alcohol use: Reports: none Drug use: Reports: none Physical Exam - General Limitations: no limitations General appearance: alert, in no apparent distress - Head Head exam: atraumatic, normocephalic - Eye Eye exam: Present: normal appearance, EOMI - Neck Neck exam: Present: normal inspection, full ROM, trachea midline - Respiratory Respiratory exam: Present: normal lung sounds bilaterally. Absent: respiratory distress, wheezes - Cardiovascular Cardiovascular exam: Present: regular rate, normal rhythm, normal heart sounds, +S1, +S2 - Abdominal Exam Abdominal exam: Present: soft, Non-Tender, normal bowel sounds - Neurological Exam Neurological exam: Present: alert, oriented X3 - Psychiatric Psychiatric exam: Present: normal mood, flat affect - Skin Skin exam: Present: warm, dry, intact Course Vital Signs Temperature 98.3 F 01/08/18 22:18 Pulse Rate 99 01/08/18 22:18 Respiratory Rate 18 01/08/18 22:18 Blood Pressure 118/51 01/08/18 22:18 O2 Sat by Pulse Oximetry 99 01/08/18 22:18 Temperature 98.3 F 01/08/18 22:18 Pulse Rate 82 01/09/18 01:00 Respiratory Rate 19 01/09/18 01:00 Blood Pressure 123/71 01/09/18 01:00 O2 Sat by Pulse Oximetry 99 01/09/18 01:00 Oxygen Delivery Oxygen Delivery Nasal Cannula Medical Decision Making - [facility] Narrative Medical decision making narrative: Due to the patient presenting to the emergency department with a fall and unclear whether she had some altered mentation we will obtain basic laboratory testing urine drug screen, ethanol CT scans of the head and cervical spine. Patient's laboratory testing was at her baseline and relatively unremarkable. The CT scans were negative for acute findings. The patient appears to be at her baseline mentation and is alert and oriented 3. After discussion with the patient's he stated that she would like to go home. I feel that this is reasonable due to there being no acute findings at this time. Feel that the patient is stable and appropriate for discharge. Patient be discharged home with recognition follow up to primary care provider or to return to the emergency department if she has any worsening of her symptoms. - Lab Data Lab results reviewed: Yes I reviewed the patient's lab results. Result diagrams: 01/09/18 00:03 01/09/18 00:03 Lab Results 01/08/18 01/08/18 01/09/18 Range/Units 23:55 23:55 00:03 WBC 15.1 H (4.3-11.1) K/mcL RBC 4.31 (3.82-4.97) M/mcL Hgb 12.6 (11.5-15.4) g/dL Hct 39.1 (35.3-44.9) % MCV 90.7 (83.0-100.0) fL MCH 29.2 (28.0-33.3) pg MCHC 32.2 (31.6-35.5) g/dL RDW 12.7 (11.5-14.5) % Plt Count 403 H (140-400) K/mcL MPV 9.3 L (9.4-12.4) fL Immature Gran % 1.5 (0-4) % Seg Neutrophils % 91.3 % Lymphocytes % 4.8 % Monocytes % 2.3 % Eosinophils % 0.0 % Basophils % 0.1 % Neutrophils # 13.8 H (1.6-8.9) K/mcL Lymphocytes # 0.7 (0.6-4.6) K/mcL Monocytes # 0.4 (0.0-1.3) K/mcL Eosinophils # 0.0 (0.0-0.6) K/mcL Basophils # 0.0 (0.0-0.2) K/mcL PT (9.4-12.1) Seconds INR APTT (26.0-36.0) Seconds Sodium (136-145) mEq/L Potassium (3.5-5.1) mEq/L Chloride (98-107) mEq/L Carbon Dioxide (23-29) mEq/L BUN (6-20) mg/dL Creatinine (0.60-1.20) mg/dL Est GFR ( Amer) (> 60) Est GFR (Non-Af Amer) (> 60) BUN/Creatinine Ratio (6-26) Glucose (70-105) mg/dL Calculated Osmolality (280-300) Calcium (8.6-10.3) mg/dL Total Bilirubin (0.3-1.0) mg/dL Direct Bilirubin (0.0-0.2) mg/dL Indirect Bilirubin (0.0-1.2) mg/dL AST (13-39) Units/L ALT (7-52) Units/L Alkaline Phosphatase (34-104) Units/L Ammonia (16-53) mcmol/L Troponin I (< 0.04) ng/mL Serum Total Protein (6.4-8.9) g/dL Albumin (3.5-5.7) g/dL Globulin (2.4-3.5) g/dL Albumin/Globulin Ratio (1.1-2.2) Urine Color Yellow (Yellow) Urine Clarity Clear (Clear) Urine pH 6.0 (5.0-8.0) pH Units Ur Specific [place] 1.012 (1.010-1.025) Urine Protein Negative (Neg-Trace) mg/dL Urine Glucose (UA) Normal (Normal) mg/dL Urine Ketones Negative (Negative) mg/dL Urine Blood Negative (Negative) Urine Nitrite Negative (Negative) Urine Bilirubin Negative (Negative) Urine Urobilinogen Normal (Normal) mg/dL Ur Leukocyte Esterase Negative (Negative) Ur Culture Indicated? NO (NO) Urine Opiates Screen Negative (Ujvzdo=485) ng/mL Ur Barbiturates Screen Negative (Cmoqjm=902) ng/mL Ur Phencyclidine Scrn Negative (Cutoff=25) ng/mL Ur Amphetamines Screen Negative (Oynuta=0373) ng/mL U Benzodiazepines Scrn Negative (Oiancw=431) ng/mL Urine Cocaine Screen Negative (Cutoff= 300) ng/mL U Marijuana (THC) Screen Negative (Cutoff = 50) ng/mL Ur Drug Screen Interp See Below Ethyl Alcohol (Less than 10) mg/dL 01/09/18 01/09/18 01/09/18 Range/Units 00:03 00:03 00:03 WBC (4.3-11.1) K/mcL RBC (3.82-4.97) M/mcL Hgb (11.5-15.4) g/dL Hct (35.3-44.9) % MCV (83.0-100.0) fL MCH (28.0-33.3) pg MCHC (31.6-35.5) g/dL RDW (11.5-14.5) % Plt Count (140-400) K/mcL MPV (9.4-12.4) fL Immature Gran % (0-4) % Seg Neutrophils % % Lymphocytes % % Monocytes % % Eosinophils % % Basophils % % Neutrophils # (1.6-8.9) K/mcL Lymphocytes # (0.6-4.6) K/mcL Monocytes # (0.0-1.3) K/mcL Eosinophils # (0.0-0.6) K/mcL Basophils # (0.0-0.2) K/mcL PT 11.6 (9.4-12.1) Seconds INR 1.0 APTT 50.3 H (26.0-36.0) Seconds Sodium 138 (136-145) mEq/L Potassium 4.8 (3.5-5.1) mEq/L Chloride 104 (98-107) mEq/L Carbon Dioxide 24 (23-29) mEq/L BUN 35 H (6-20) mg/dL Creatinine 1.02 (0.60-1.20) mg/dL Est GFR ( Amer) > 60 (> 60) Est GFR (Non-Af Amer) 55 L (> 60) BUN/Creatinine Ratio 34 H (6-26) Glucose 116 H (70-105) mg/dL Calculated Osmolality 295 (280-300) Calcium 9.1 (8.6-10.3) mg/dL Total Bilirubin 0.2 L (0.3-1.0) mg/dL Direct Bilirubin 0.1 (0.0-0.2) mg/dL Indirect Bilirubin 0.1 (0.0-1.2) mg/dL AST 23 (13-39) Units/L ALT 97 H (7-52) Units/L Alkaline Phosphatase 178 H (34-104) Units/L Ammonia 30 (16-53) mcmol/L Troponin I < 0.03 (< 0.04) ng/mL Serum Total Protein 6.3 L (6.4-8.9) g/dL Albumin 3.4 L (3.5-5.7) g/dL Globulin 2.9 (2.4-3.5) g/dL Albumin/Globulin Ratio 1.2 (1.1-2.2) Urine Color (Yellow) Urine Clarity (Clear) Urine pH (5.0-8.0) pH Units Ur Specific [place] (1.010-1.025) Urine Protein (Neg-Trace) mg/dL Urine Glucose (UA) (Normal) mg/dL Urine Ketones (Negative) mg/dL Urine Blood (Negative) Urine Nitrite (Negative) Urine Bilirubin (Negative) Urine Urobilinogen (Normal) mg/dL Ur Leukocyte Esterase (Negative) Ur Culture Indicated? (NO) Urine Opiates Screen (Kugtpu=219) ng/mL Ur Barbiturates Screen (Loiktg=610) ng/mL Ur Phencyclidine Scrn (Cutoff=25) ng/mL Ur Amphetamines Screen (Jcwvzg=5671) ng/mL U Benzodiazepines Scrn (Snhtth=905) ng/mL Urine Cocaine Screen (Cutoff= 300) ng/mL U Marijuana (THC) Screen (Cutoff = 50) ng/mL Ur Drug Screen Interp Ethyl Alcohol < 10 (Less than 10) mg/dL - Radiology Data Radiology results reviewed: Yes I reviewed the patient's radiology results. Chest X-Ray 01/08/18 23:09 IMPRESSION: Increased central and basilar opacity, overall greater on the left. Pulmonary edema is the primary consideration. Multifocal pneumonia also considered. D/ / Steven Herr MD / Steven Herr MD Interpreting Provider: Steven Herr MD Cervical Spine CT 01/08/18 23:10 IMPRESSION: No acute abnormality of the cervical spine. Unchanged cervical facet arthrosis. D/ / Caio Collazo / Caio Collazo Interpreting Provider: Caio Collazo Head CT 01/08/18 23:10 IMPRESSION: No acute intracranial abnormality. D/ / Steven Herr MD / Steven Herr MD Interpreting Provider: Steven Herr MD
--- NOTE | 2018-01-09 05:35 | Emergency Department Note ---
Disposition Clinical Impression: Fall Qualifiers: Encounter type: initial encounter Qualified Code(s): W19.XXXA - Unspecified fall, initial encounter Leukocytosis Qualifiers: Leukocytosis type: unspecified Qualified Code(s): D72.829 - Elevated white blood cell count, unspecified Disposition: Home, Self-Care Condition: Good Instructions: Fall Prevention (ED) Reasons to Return/Additional Instructions: Please follow up with your primary care provider in 3-5 days I have provided information to the [facility] residency clinic. Please return to the emergency department if you have any worsening of your symptoms including Referrals: [facility] [Outside] NONE,PCP [Primary Care Provider] - General Adult HPI - General Chief complaint: ED Neck Pain/Injury Stated complaint: neck pain fall Time Seen by Provider: 01/08/18 22:34 Source: patient, EMS Mode of arrival: EMS Limitations: no limitations Nursing Notes Reviewed: Yes Vital Signs Reviewed: Yes - History of Present Illness Pain Scale: 9 - Related Data Home Medications Medication Instructions Recorded Confirmed Aspirin [Lo-Dose Aspirin EC] 81 mg PO DAILY 12/24/17 01/09/18 Baclofen [Lioresal] 10 mg PO TID 12/24/17 01/09/18 Diltiazem SR (12hr) [Cardizem SR] 60 mg PO QAM 12/24/17 01/09/18 Doxepin HCl 300 mg PO HS 12/24/17 01/09/18 Nabumetone [Relafen] 500 mg PO TID 12/24/17 01/09/18 Omeprazole [PriLOSEC] 40 mg PO DAILY 12/24/17 01/09/18 PARoxetine HCl [Paroxetine HCl] 60 mg PO DAILY 12/24/17 01/09/18 Propranolol [Inderal] 10 mg PO BID 12/24/17 01/09/18 Ropinirole HCl [Requip] 0.5 mg PO HS 12/24/17 01/09/18 Previous Rx's Medication Instructions Recorded chlorproMAZINE [Thorazine] 100 mg PO HS 30 Days #30 tablet 12/31/17 hydrOXYzine HCl [Hydroxyzine HCl] 25 mg PO BID #0 12/31/17 Azithromycin [Zithromax] 250 mg PO DAILY #3 tablet 01/07/18 Ipratropium/Albuterol Neb [Duoneb] 3 ml IH [id number] PRN #30 inhsol 01/07/18 predniSONE [PredniSONE] 50 mg PO DAILY 14 Days #35 tablet 01/07/18 Allergies Allergy/AdvReac Type Severity Reaction Status Date / Time metoclopramide [From Reglan] Allergy Mild Itching Verified 11/03/17 14:57 tramadol Allergy Mild Itching Verified 11/03/17 14:57 amitriptyline Allergy Itching Verified 11/03/17 14:57 codeine Allergy Hives Verified 11/03/17 14:57 Sulfa (Sulfonamide Allergy See Verified 11/03/17 14:57 Antibiotics) Comments sulfamethoxazole Allergy See Verified 11/03/17 14:57 [From Bactrim] Comments trimethoprim [From Bactrim] Allergy See Verified 11/03/17 14:57 Comments lorazepam [From Ativan] AdvReac Mild Anxiety Verified 11/03/17 14:57 benztropine [From Cogentin] AdvReac See Verified 11/03/17 14:57 Comments ciprofloxacin [From Cipro] AdvReac See Verified 11/03/17 14:57 Comments onabotulinumtoxinA AdvReac See Verified 11/03/17 14:57 [From Botox] Comments sertraline [From Zoloft] AdvReac Headache Verified 11/03/17 14:57 sumatriptan [From Imitrex] AdvReac Agitated Verified 11/03/17 14:57 topiramate [From Topamax] AdvReac See Verified 11/03/17 14:57 Comments Cardiovascular: Denies: chest pain Respiratory: Denies: dyspnea Musculoskeletal: Reports: neck pain Past Medical History - Past Medical History Medical history: Reports: arthritis, migraine Surgical history: Reports: , cholecystectomy, herniorrhaphy, hysterectomy Psychiatric history: Reports: anxiety, bipolar, depression ENGLISH PROFESSOR history: Reports: no ENGLISH PROFESSOR history, other - Social History Smoking Status: Current some day smoker Smokeless Tobacco Status: No Alcohol use: Reports: none Drug use: Reports: none Physical Exam - General Limitations: no limitations General appearance: alert, in no apparent distress Course Vital Signs Temperature 98.3 F 01/08/18 22:18 Pulse Rate 99 01/08/18 22:18 Respiratory Rate 18 01/08/18 22:18 Blood Pressure 118/51 01/08/18 22:18 O2 Sat by Pulse Oximetry 99 01/08/18 22:18 Temperature 98.3 F 01/08/18 22:18 Pulse Rate 91 01/09/18 06:04 Respiratory Rate 18 01/09/18 06:04 Blood Pressure 137/76 01/09/18 06:04 O2 Sat by Pulse Oximetry 95 01/09/18 06:04 Oxygen Delivery Oxygen Delivery Room Air Medical Decision Making - Medical Records Medical records reviewed: Yes I reviewed the patient's medical records. - Lab Data Lab results reviewed: Yes I reviewed the patient's lab results. Result diagrams: 01/09/18 00:03 01/09/18 00:03 Lab Results 01/08/18 01/08/18 01/09/18 Range/Units 23:55 23:55 00:03 WBC 15.1 H (4.3-11.1) K/mcL RBC 4.31 (3.82-4.97) M/mcL Hgb 12.6 (11.5-15.4) g/dL Hct 39.1 (35.3-44.9) % MCV 90.7 (83.0-100.0) fL MCH 29.2 (28.0-33.3) pg MCHC 32.2 (31.6-35.5) g/dL RDW 12.7 (11.5-14.5) % Plt Count 403 H (140-400) K/mcL MPV 9.3 L (9.4-12.4) fL Immature Gran % 1.5 (0-4) % Seg Neutrophils % 91.3 % Lymphocytes % 4.8 % Monocytes % 2.3 % Eosinophils % 0.0 % Basophils % 0.1 % Neutrophils # 13.8 H (1.6-8.9) K/mcL Lymphocytes # 0.7 (0.6-4.6) K/mcL Monocytes # 0.4 (0.0-1.3) K/mcL Eosinophils # 0.0 (0.0-0.6) K/mcL Basophils # 0.0 (0.0-0.2) K/mcL PT (9.4-12.1) Seconds INR APTT (26.0-36.0) Seconds Sodium (136-145) mEq/L Potassium (3.5-5.1) mEq/L Chloride (98-107) mEq/L Carbon Dioxide (23-29) mEq/L BUN (6-20) mg/dL Creatinine (0.60-1.20) mg/dL Est GFR ( Amer) (> 60) Est GFR (Non-Af Amer) (> 60) BUN/Creatinine Ratio (6-26) Glucose (70-105) mg/dL Calculated Osmolality (280-300) Calcium (8.6-10.3) mg/dL Total Bilirubin (0.3-1.0) mg/dL Direct Bilirubin (0.0-0.2) mg/dL Indirect Bilirubin (0.0-1.2) mg/dL AST (13-39) Units/L ALT (7-52) Units/L Alkaline Phosphatase (34-104) Units/L Ammonia (16-53) mcmol/L Troponin I (< 0.04) ng/mL Serum Total Protein (6.4-8.9) g/dL Albumin (3.5-5.7) g/dL Globulin (2.4-3.5) g/dL Albumin/Globulin Ratio (1.1-2.2) Urine Color Yellow (Yellow) Urine Clarity Clear (Clear) Urine pH 6.0 (5.0-8.0) pH Units Ur Specific [place] 1.012 (1.010-1.025) Urine Protein Negative (Neg-Trace) mg/dL Urine Glucose (UA) Normal (Normal) mg/dL Urine Ketones Negative (Negative) mg/dL Urine Blood Negative (Negative) Urine Nitrite Negative (Negative) Urine Bilirubin Negative (Negative) Urine Urobilinogen Normal (Normal) mg/dL Ur Leukocyte Esterase Negative (Negative) Ur Culture Indicated? NO (NO) Urine Opiates Screen Negative (Bdlxxx=901) ng/mL Ur Barbiturates Screen Negative (Chzqjm=558) ng/mL Ur Phencyclidine Scrn Negative (Cutoff=25) ng/mL Ur Amphetamines Screen Negative (Tnbwku=5519) ng/mL U Benzodiazepines Scrn Negative (Qctugm=452) ng/mL Urine Cocaine Screen Negative (Cutoff= 300) ng/mL U Marijuana (THC) Screen Negative (Cutoff = 50) ng/mL Ur Drug Screen Interp See Below Ethyl Alcohol (Less than 10) mg/dL 01/09/18 01/09/18 01/09/18 Range/Units 00:03 00:03 00:03 WBC (4.3-11.1) K/mcL RBC (3.82-4.97) M/mcL Hgb (11.5-15.4) g/dL Hct (35.3-44.9) % MCV (83.0-100.0) fL MCH (28.0-33.3) pg MCHC (31.6-35.5) g/dL RDW (11.5-14.5) % Plt Count (140-400) K/mcL MPV (9.4-12.4) fL Immature Gran % (0-4) % Seg Neutrophils % % Lymphocytes % % Monocytes % % Eosinophils % % Basophils % % Neutrophils # (1.6-8.9) K/mcL Lymphocytes # (0.6-4.6) K/mcL Monocytes # (0.0-1.3) K/mcL Eosinophils # (0.0-0.6) K/mcL Basophils # (0.0-0.2) K/mcL PT 11.6 (9.4-12.1) Seconds INR 1.0 APTT 50.3 H (26.0-36.0) Seconds Sodium 138 (136-145) mEq/L Potassium 4.8 (3.5-5.1) mEq/L Chloride 104 (98-107) mEq/L Carbon Dioxide 24 (23-29) mEq/L BUN 35 H (6-20) mg/dL Creatinine 1.02 (0.60-1.20) mg/dL Est GFR ( Amer) > 60 (> 60) Est GFR (Non-Af Amer) 55 L (> 60) BUN/Creatinine Ratio 34 H (6-26) Glucose 116 H (70-105) mg/dL Calculated Osmolality 295 (280-300) Calcium 9.1 (8.6-10.3) mg/dL Total Bilirubin 0.2 L (0.3-1.0) mg/dL Direct Bilirubin 0.1 (0.0-0.2) mg/dL Indirect Bilirubin 0.1 (0.0-1.2) mg/dL AST 23 (13-39) Units/L ALT 97 H (7-52) Units/L Alkaline Phosphatase 178 H (34-104) Units/L Ammonia 30 (16-53) mcmol/L Troponin I < 0.03 (< 0.04) ng/mL Serum Total Protein 6.3 L (6.4-8.9) g/dL Albumin 3.4 L (3.5-5.7) g/dL Globulin 2.9 (2.4-3.5) g/dL Albumin/Globulin Ratio 1.2 (1.1-2.2) Urine Color (Yellow) Urine Clarity (Clear) Urine pH (5.0-8.0) pH Units Ur Specific [place] (1.010-1.025) Urine Protein (Neg-Trace) mg/dL Urine Glucose (UA) (Normal) mg/dL Urine Ketones (Negative) mg/dL Urine Blood (Negative) Urine Nitrite (Negative) Urine Bilirubin (Negative) Urine Urobilinogen (Normal) mg/dL Ur Leukocyte Esterase (Negative) Ur Culture Indicated? (NO) Urine Opiates Screen (Kkmnas=625) ng/mL Ur Barbiturates Screen (Gkvwcg=818) ng/mL Ur Phencyclidine Scrn (Cutoff=25) ng/mL Ur Amphetamines Screen (Evqqgq=1553) ng/mL U Benzodiazepines Scrn (Bpofkg=351) ng/mL Urine Cocaine Screen (Cutoff= 300) ng/mL U Marijuana (THC) Screen (Cutoff = 50) ng/mL Ur Drug Screen Interp Ethyl Alcohol < 10 (Less than 10) mg/dL - Radiology Data Radiology results reviewed: Yes I reviewed the patient's radiology results. Chest X-Ray 01/08/18 23:09 IMPRESSION: Increased central and basilar opacity, overall greater on the left. Pulmonary edema is the primary consideration. Multifocal pneumonia also considered. D/ / Steven Herr MD / Steven Herr MD Interpreting Provider: Steven Herr MD Cervical Spine CT 01/08/18 23:10 IMPRESSION: No acute abnormality of the cervical spine. Unchanged cervical facet arthrosis. D/ / Caio Collazo / Caio Collazo Interpreting Provider: Caio Collazo Head CT 01/08/18 23:10 IMPRESSION: No acute intracranial abnormality. D/ / Steven Herr MD / Steven Herr MD Interpreting Provider: Steven Herr MD Attestation Statement - Attestation Attestation: I, Skyler Cartagena MD, personally evaluated this patient and discussed their management with the resident physician. I reviewed the resident's note and agree with the documented findings, medical decision making, and plan of care. 57-year-old female persisted emergency department after she had a fall at home and complains of pain in her head and neck. Patient with altered mental status which appears to be her baseline. I have seen this patient multiple times before and she always appears to be under the influence of sedating medication which is how she appears tonight. She was just released from the hospital within the past day or 2. Patient appears very drowsy but does arouse to verbal stimuli and answers questions slowly. Her speech is somewhat slurred and she dozes off to sleep when not stimulated. On examination patient is a well-developed well-nourished female in no acute distress. She is drowsy but responds to verbal and physical stimuli. No cyanosis or diaphoresis. Scalp tenderness or hematomas. No facial contusions noted. No obvious signs of trauma. Patient arrived in a cervical collar. No obvious tenderness to palpation over the midline cervical spine. Chest is nontender to palpation and compression. Breath sounds are equal bilaterally. Heart regular rate and rhythm. Abdomen soft with normal bowel sounds in no apparent tenderness. No gross focal neurological deficits. Labs reviewed and unremarkable. Abnormalities appear to be baseline for this patient. CT of the head and neck was negative. Plan was to discharge the patient home however patient lives with her parents who are elderly. I talked with patient's mother on the phone and she tells me that she has been trying to care for the patient at home but they are physically unable to take care of her. Mother states that she administers the patient's medications as prescribed since she knows that she is not taking to much. Also she does not leave the house and so she knows she is not getting other medications elsewhere. Mother reports that she has had increasing difficulty walking to the point that she cannot even get around the house without assistance and she falls frequently. Mother states that they are just physically unable to care for her at home. We will admit the patient for older adult social work specialist consult and evaluation to try to find placement. The hospitalist, Dr. Delgado, was consulted and accepted admission of the patient.
[2018-01-09] MEDS ORDERED: Naloxone 0.4 MG/ML INJ IVP PRN (07:21)
[2018-01-09] MEDS ORDERED: Ipratropium/Albuterol Neb 3 ML IH PRN (07:27)
--- NOTE | 2018-01-09 08:10 | Internal Med History&Physical ---
Date of Encounter: 01/09/18 Time of Encounter: 08:00 Internal Medicine - H&P: HPI Chief complaint: s/p fall, weakness and leukocytosis History of present illness: Ms. Montoya is a 57 year old female with pmh of diastolic CHF, interstitial lung disease with multiple admissions recently presenting to the hospital s/p fall while ambulating to the bathroom with her walker. Patient says her knees felt weak and gave way while attempting to go to the bathroom. She was brought to the ER by her parents to be checked out, and also claim they are unable to care for her anymore. She was recently discharged from the hospital on 01/07 when she was treated for a non specific interstitial pneumonia and discharged on azithromycin and steroids. In the ER, she had a CT head and CT cervical spine done showing no acute abnormalities. She also noted to have a leukocytosis and a chest xray which are not significantly worse from her last admission. She is being admitted for possible placement as her parents are unable to care for her due to her progressive physical decline Past Med Surg Social Fam HX - Past Medical History Medical history: arthritis, migraine Additional medical history: pt denies any history Psychiatric history: anxiety, bipolar, depression - Past Surgical History Surgical History: , cholecystectomy, herniorrhaphy, hysterectomy Additional surgical history: Lung BX- right. - Social History Smoking Status: Current some day smoker Smokeless Tobacco Status: No Alcohol use: none Drug use: none - Family History Father Living Status: Still Living Hx Family Cardiac Disorders: Yes (heart disease) Mother Adopted: No Family Member Ethnicity: Non- Living Status: Still Living Hx Family Cardiac Disorders: No Hx Family Respiratory Disorders: Yes (short of breath) Hx Family Cancer: No Hx Family GI Disorders: No Hx Family Endocrine Disorder: No Hx Family Neuromuscular Disorders: No Hx Family Neurologic Disorders: No Hx Family HEENT Disorders: No Hx Family Autoimmune Disorders: Yes (hyperthyroid) Grandfather Living Status: Hx Family Cardiac Disorders: Yes Internal Medicine - H&P: Meds Aspirin [Lo-Dose Aspirin EC] 81 mg PO DAILY 12/24/17 [History] Baclofen [Lioresal] 10 mg PO TID 12/24/17 [History] Diltiazem SR (12hr) [Cardizem SR] 60 mg PO QAM 12/24/17 [History] Doxepin HCl 300 mg PO HS 12/24/17 [History] Nabumetone [Relafen] 500 mg PO TID 12/24/17 [History] Omeprazole [PriLOSEC] 40 mg PO DAILY 12/24/17 [History] PARoxetine HCl [Paroxetine HCl] 60 mg PO DAILY 12/24/17 [History] Propranolol [Inderal] 10 mg PO BID 12/24/17 [History] Ropinirole HCl [Requip] 0.5 mg PO HS 12/24/17 [History] chlorproMAZINE [Thorazine] 100 mg PO HS 30 Days #30 tablet 12/31/17 [Rx] hydrOXYzine HCl [Hydroxyzine HCl] 25 mg PO BID #0 12/31/17 [Rx] Azithromycin [Zithromax] 250 mg PO DAILY #3 tablet 01/07/18 [Rx] Ipratropium/Albuterol Neb [Duoneb] 3 ml IH [id number] PRN #30 inhsol 01/07/18 [Rx] predniSONE [PredniSONE] 50 mg PO DAILY 14 Days #35 tablet 01/07/18 [Rx] 3 Allergy/AdvReac Type Severity Reaction Status Date / Time metoclopramide [From Reglan] Allergy Mild Itching Verified 11/03/17 14:57 tramadol Allergy Mild Itching Verified 11/03/17 14:57 amitriptyline Allergy Itching Verified 11/03/17 14:57 codeine Allergy Hives Verified 11/03/17 14:57 Sulfa (Sulfonamide Allergy See Verified 11/03/17 14:57 Antibiotics) Comments sulfamethoxazole Allergy See Verified 11/03/17 14:57 [From Bactrim] Comments trimethoprim [From Bactrim] Allergy See Verified 11/03/17 14:57 Comments lorazepam [From Ativan] AdvReac Mild Anxiety Verified 11/03/17 14:57 benztropine [From Cogentin] AdvReac See Verified 11/03/17 14:57 Comments ciprofloxacin [From Cipro] AdvReac See Verified 11/03/17 14:57 Comments onabotulinumtoxinA AdvReac See Verified 11/03/17 14:57 [From Botox] Comments sertraline [From Zoloft] AdvReac Headache Verified 11/03/17 14:57 sumatriptan [From Imitrex] AdvReac Agitated Verified 11/03/17 14:57 topiramate [From Topamax] AdvReac See Verified 11/03/17 14:57 Comments All Systems PM: A 10-system review of systems was performed and is negative for pertinent findings except as documented above in the HPI. - Constitutional Constitutional: as per HPI, falls - EENT Eyes: no change in vision, no discharge, no pain, no photophobia Ears: no ear discharge, no ear pain, no tinnitus Nose, mouth and throat: no dysphagia, no nasal discharge, no neck pain, no sore throat - Cardiovascular Cardiovascular ROS IM: no chest pain, no diaphoresis, no dyspnea, no lightheadedness, no palpitations, no syncope - Respiratory Respiratory: no cough, no dyspnea, no wheezing, no excessive phlegm production - Gastrointestinal Gastrointestinal: no abdominal pain, no diarrhea, no hematemesis, no hematochezia, no melena, no nausea, no vomiting - Genitourinary Genitourinary: no change in urinary stream, no dysuria, no flank pain, no hematuria - Musculoskeletal Musculoskeletal ROS IM: no numbness, no tingling - Integumentary Integumentary IM: no rash, no unusual bruising - Neurological Neurological ROS: no confusion, no convulsions, no focal weakness, no numbness, no tingling, no tremor(s) - Hematologic/Lymphatic Hematologic/Lymphatic: no easy bruising - Constitutional Vitals: Temp Pulse Resp BP Pulse Ox 97.3 F L 104 18 130/88 95 01/09/18 07:25 01/09/18 07:25 01/09/18 07:25 01/09/18 07:25 01/09/18 07:25 General appearance: Present: obese Exam: NAD - Head Head exam: Present: atraumatic, normocephalic - Eye Eye exam: Present: PERRL, conjuntiva pink, sclera anicteric Pupils: Present: PERRL - Neck Neck exam general surgery: Present: supple, trachea midline. Absent: lymphadenopathy - Respiratory Respiratory exam: Present: CTAB. Absent: accessory muscle use, rales, rhonchi, wheezes - Cardiovascular Cardiovascular exam: Present: RRR, +S1, +S2. Absent: diastolic murmur, gallop, rubs, systolic murmur - GI/Abdominal GI/Abdominal exam: Present: normal bowel sounds, soft, no peritoneal signs. Absent: distended, tenderness - Extremities Exam Extremities exam: Present: warm, radial pulses palpable and symmetrical. Absent : calf tenderness, cyanotic, pedal edema - Neurological Exam Neurological exam: Present: CN II-XII intact, oriented X3, no focal deficits. Absent: pronater drift, facial droop, speech deficit - Skin Skin exam: Present: dry, intact Internal Med - H&P Results - Labs CBC & Chem 7: 01/09/18 00:03 01/09/18 00:03 - Assessment and plan (1) Falls Current Visit: Yes Status: Chronic Assessment and plan: Pt appears to be in progressive physical decline with recurrent falls and her elderly parents her unable to care for her. CT head and CT spine negative for any acute findings Obtain physical therapy consult for strengthening and social service coordinator consult for possible placement Qualifiers: Encounter type: initial encounter Qualified Code(s): W19.XXXA - Unspecified fall, initial encounter (2) Leukocytosis Current Visit: Yes Status: Acute Assessment and plan: Stable. Likely secondary to steroids. Pt is afebrile and CXR shows no acute changes from xray on previous admissiona week ago Continue prednisone and azithromycin Qualifiers: Leukocytosis type: unspecified Qualified Code(s): D72.829 - Elevated white blood cell count, unspecified (3) Back pain Current Visit: No Status: Acute Assessment and plan: Pain control and muscle relaxants prn Qualifiers: Back pain location: low back pain Back pain laterality: midline Sciatica presence: without sciatica Qualified Code(s): M54.5 - Low back pain (4) Diastolic CHF Current Visit: Yes Status: Acute Assessment and plan: Stable. NO acute exacerbation Qualifiers: Qualified Code(s): I50.30 - Unspecified diastolic (congestive) heart failure (5) NSIP (nonspecific interstitial pneumonia) Current Visit: Yes Status: Acute Assessment and plan: Continue azithromycin and prednisone (6) DVT prophylaxis Current Visit: No Status: Acute Assessment and plan: Heparin sc - Time Spent With Patient Total time spent is greater than 50% in coordination of care (as documented) at patient's floor/unit and/or counseling patient:
[2018-01-09] MEDS: Aspirin Enteric Coated 81 MG Tablet PO SCH (09:09)
[2018-01-09] MEDS: Diltiazem SR (12hr) 60 MG CAPSULE PO SCH (09:09)
[2018-01-09] MEDS: predniSONE 20 MG TABLET PO SCH (09:09)
[2018-01-09] MEDS: Baclofen 10 MG TABLET PO SCH ×3 (09:09→22:04)
[2018-01-09] MEDS: Azithromycin 250 MG TABLET PO SCH (09:10)
--- NOTE | 2018-01-09 14:14 | Event Note ---
Date of Encounter: 01/09/18 Time of Encounter: 13:00 Pt complained of left sided chest pain, pressure like. Obtain EKG and 3 sets of cardiac enzymes. If negative, and there are no other acute medical issues, patient can go home with home health in am
[2018-01-09] MEDS: Acetaminophen 325 MG TABLET PO PRN (14:16)
[2018-01-09] MEDS ORDERED: chlorproMAZINE 25 MG TABLET PO SCH (21:00)
[2018-01-09] MEDS ORDERED: rOPINIRole 0.25 MG TABLET PO SCH (21:00)
[2018-01-10] MEDS: Acetaminophen 325 MG TABLET PO PRN (04:46)
[2018-01-10 07:29] LABS: Basophils % 0.1 %; Eosinophils % 0.2 %; Hematocrit 35.4 % (35.3-44.9); Hemoglobin 11.8 g/dL (11.5-15.4); Immature Granulocytes % 1.6 % (0-4); Lymphocytes % 13.7 %; Mean Corpuscular HGB Conc 33.3 g/dL (31.6-35.5); Mean Corpuscular Hemoglobin 29.9 pg (28.0-33.3); Mean Corpuscular Volume 89.6 fL (83.0-100.0); Mean Platelet Volume 10.2 fL (9.4-12.4); Monocytes # 0.9 K/mcL (0.0-1.3); Monocytes % 6.3 %; Neutrophils # 11.5 K/mcL (1.6-8.9); Platelet Count 385 K/mcL (140-400); Red Blood Count 3.95 M/mcL (3.82-4.97); Red Cell Distribution Width 12.7 % (11.5-14.5); Segmented Neutrophils % 78.1 %
[2018-01-10 07:39] LABS: BUN/Creatinine Ratio 35 (6-26); Blood Urea Nitrogen 38 mg/dL (6-20); Calcium 9.1 mg/dL (8.6-10.3); Carbon Dioxide 20 mEq/L (23-29); Chloride 103 mEq/L (98-107); Glucose 72 mg/dL (70-105); Magnesium 2.2 mg/dL (1.6-2.6); Osmolality,Calculated 290 (280-300); Phosphorous 3.9 mg/dL (2.7-4.5); Potassium 4.6 mEq/L (3.5-5.1); Sodium 136 mEq/L (136-145); eGFR For Non-African Americans 52 (> 60)
[2018-01-10] MEDS: Diltiazem SR (12hr) 60 MG CAPSULE PO SCH (07:55)
[2018-01-10] MEDS: Azithromycin 250 MG TABLET PO SCH (07:55)
[2018-01-10] MEDS: Baclofen 10 MG TABLET PO SCH (07:55)
[2018-01-10] MEDS: Aspirin Enteric Coated 81 MG Tablet PO SCH (07:55)
[2018-01-10] MEDS: predniSONE 20 MG TABLET PO SCH (07:55)
--- NOTE | 2018-01-10 09:09 | Electrocardiograph Report ---
[address] [place], [place] [address] Test Date: 2018-01-09 Pat Name: Angela Montoya Department: 113 Room: 3B54 Gender: F [employer]: JENNIFER : 1960 Requested By: Teo Stevens Order Number: [id number] Reading MD: Gurinder Melo Measurements Intervals [place] Rate: 79 P: 34 NE: 161 QRS: 3 QRSD: 101 T: 16 QT: 411 QTc: 445 Interpretive Statements SINUS RHYTHM LOW QRS VOLTAGE IN PRECORDIAL LEADS ST DEVIATION AND MODERATE T-WAVE ABNORMALITY, CONSIDER ANTERIOR ISCHEMIA Electronically Signed On 01-10-2018 9:08:03 EDT by Gurinder Melo
[2018-01-10 15:01] VITALS: BP 106/66
--- NOTE | 2018-01-10 15:09 | Discharge Summary ---
- NOTES TO OUTPATIENT PROVIDER Notes to Outpatient Provider: Presented after experiencing a mechanical fall while walking to the bathroom-recently discharged after being treated for interstitial pneumonia continue with azithromycin and steroids. There was some concern about group home patient is to receive home health as well as physical therapy at home Orders not resulted at time of discharge: Pending orders 01/09/18 21:05 EKG [ECG 12 lead ECG] [ECG] Stat Date of Encounter: 01/10/18 Time of Encounter: 15:07 - Discharge Diagnosis (1) Falls Priority: Primary Status: Chronic Qualifiers: Encounter type: initial encounter Qualified Code(s): W19.XXXA - Unspecified fall, initial encounter (2) Back pain Priority: Secondary Status: Acute Qualifiers: Back pain location: low back pain Chronicity: unspecified Back pain laterality: midline Sciatica presence: without sciatica Qualified Code(s): M54.5 - Low back pain (3) Leukocytosis Priority: Secondary Status: Acute Qualifiers: Leukocytosis type: unspecified Qualified Code(s): D72.829 - Elevated white blood cell count, unspecified (4) Diastolic CHF Priority: Secondary Status: Acute Qualifiers: Heart failure chronicity: unspecified Qualified Code(s): I50.30 - Unspecified diastolic (congestive) heart failure (5) NSIP (nonspecific interstitial pneumonia) Priority: Secondary Status: Acute Hospital course: Ms. Montoya is a 57 year old female past medical history of diastolic CHF interstitial lung disease with multiple admissions recently presenting to the hospital status post fall while in the laying to the bathroom with her walker. Patient felt as if her knees were weak and just gave away while she was ambulating. CT of head and cervical spine with no acute abnormalities chest x- ray was not significantly worse from last admission. She was actually going to be discharged from the ER however patient's mother and father are present in expresses they are unable to care for her due to her progressive discal decline. During this admission she did have an episode of chest pain troponins were negative 3 and EKG unchanged from previous She was seen by nephrology social worker -patient lives independently and her parents live in the home behind her. Patient does have a shower chair cane and walker [facility] home O2. She does have home health care that was set up for an previous admission through [facility] however they were not able to come see her because she was already back in the hospital. Patient agreed to continue set up with [facility] and adding PT due to feeling weak in her legs. She is human able to a stable at this time and she is ready for discharge she will return home with home health. Advised patient follow-up with primary care provider since his providers are Alejandro can adjust medications accordingly. Patient verbalized understanding. - Time Spent with Patient Total time spent providing and/or coordinating discharge services: - Discharge Medications Home Medications: Aspirin [Lo-Dose Aspirin EC] 81 mg PO DAILY 12/24/17 [History] Baclofen [Lioresal] 10 mg PO TID 12/24/17 [History] Diltiazem SR (12hr) [Cardizem SR] 60 mg PO QAM 12/24/17 [History] Doxepin HCl 300 mg PO HS 12/24/17 [History] Nabumetone [Relafen] 500 mg PO TID 12/24/17 [History] Omeprazole [PriLOSEC] 40 mg PO DAILY 12/24/17 [History] PARoxetine HCl [Paroxetine HCl] 60 mg PO DAILY 12/24/17 [History] Propranolol [Inderal] 10 mg PO BID 12/24/17 [History] Ropinirole HCl [Requip] 0.5 mg PO HS 12/24/17 [History] chlorproMAZINE [Thorazine] 100 mg PO HS 30 Days #30 tablet 12/31/17 [Rx] hydrOXYzine HCl [Hydroxyzine HCl] 25 mg PO BID #0 12/31/17 [Rx] Azithromycin [Zithromax] 250 mg PO DAILY #3 tablet 01/07/18 [Rx] Ipratropium/Albuterol Neb [Duoneb] 3 ml IH [id number] PRN #30 inhsol 01/07/18 [Rx] predniSONE [PredniSONE] 50 mg PO DAILY 14 Days #35 tablet 01/07/18 [Rx] Allergies/Adverse Reactions: 3 Allergy/AdvReac Type Severity Reaction Status Date / Time metoclopramide [From Reglan] Allergy Mild Itching Verified 11/03/17 14:57 tramadol Allergy Mild Itching Verified 11/03/17 14:57 amitriptyline Allergy Itching Verified 11/03/17 14:57 codeine Allergy Hives Verified 11/03/17 14:57 Sulfa (Sulfonamide Allergy See Verified 11/03/17 14:57 Antibiotics) Comments sulfamethoxazole Allergy See Verified 11/03/17 14:57 [From Bactrim] Comments trimethoprim [From Bactrim] Allergy See Verified 11/03/17 14:57 Comments lorazepam [From Ativan] AdvReac Mild Anxiety Verified 11/03/17 14:57 benztropine [From Cogentin] AdvReac See Verified 11/03/17 14:57 Comments ciprofloxacin [From Cipro] AdvReac See Verified 11/03/17 14:57 Comments onabotulinumtoxinA AdvReac See Verified 11/03/17 14:57 [From Botox] Comments sertraline [From Zoloft] AdvReac Headache Verified 11/03/17 14:57 sumatriptan [From Imitrex] AdvReac Agitated Verified 11/03/17 14:57 topiramate [From Topamax] AdvReac See Verified 11/03/17 14:57 Comments Date of admission: 01/09/18 06:29 Primary care physician: PCP NONE Consults: 01/09/18 07:31 Consult to Ocular Pathologist [CONS] Routine Reason for SW Consult: For termite control service representative placement. Patient's parents are elderly and physically unable to care for her anymore 01/09/18 07:32 Consult to Physical Therapy [CONS] Routine Comment: Evaluate, develop and implement POC Reason for Consult: strengthening Does patient have active BEDREST order?: No Is patient medically & hemodynamically stable?: Yes Patient assessed for mobility or mobilized this visit?: No 01/09/18 10:41 Consult to Occupational Therapy [CONS] Routine Comment: Evaluate, develop and implement POC Reason for Consult: WEAKNESS, DECONDITIONING, MAY NEED ECF PLACEMENT Does patient have active BEDREST order?: No Is patient medically & hemodynamically stable?: Yes Discharging clinician: Hattie Lewis Anticipated date of discharge: 01/10/18 - Constitutional Vitals: Temp Pulse Resp BP Pulse Ox 98.2 F 73 16 106/66 97 01/10/18 15:00 01/10/18 15:00 01/10/18 15:00 01/10/18 15:00 01/10/18 15:00 General appearance: Present: obese Exam: see above - Head Head exam: Present: atraumatic, normocephalic - Eye Eye exam: Present: PERRL, conjuntiva pink, sclera anicteric Pupils: Present: PERRL - Neck Neck exam general surgery: Present: supple, trachea midline. Absent: lymphadenopathy - Respiratory Respiratory exam: Present: CTAB. Absent: accessory muscle use, rales, rhonchi, wheezes - Cardiovascular Cardiovascular exam: Present: RRR, +S1, +S2. Absent: diastolic murmur, gallop, rubs, systolic murmur - GI/Abdominal GI/Abdominal exam: Present: normal bowel sounds, soft, no peritoneal signs. Absent: distended, tenderness - Extremities Exam Extremities exam: Present: warm, radial pulses palpable and symmetrical. Absent : calf tenderness, cyanotic, pedal edema - Neurological Exam Neurological exam: Present: CN II-XII intact, oriented X3, no focal deficits. Absent: pronater drift, facial droop, speech deficit - Skin Skin exam: Present: dry, intact - Patient Status Disposition: Home, Self-Care Condition: Good Functional capacity at discharge: uses cane/walker Overall status at discharge: patient is back to baseline - Discharge Instructions Instructions: Fall Prevention (DC), Pneumonia (DC) Follow Up With: NONE,PCP [Primary Care Provider] - Forms: ED Satisfaction Letter - Diet and Activity Activity: ambulate only with your walker, as per physical therapy Diet: advance to your usual diet
--- NOTE | 2018-01-10 15:12 | Physician Discharge Referral ---
Home Health/Hosp Referral Info Transfer to: Home Health Attending Provider: vinay vivas Provider in Charge Post Discharge: PCP - Diagnosis (1) Falls Priority: Primary Status: Chronic (2) Back pain Priority: Secondary Status: Acute (3) Leukocytosis Priority: Secondary Status: Acute (4) Diastolic CHF Priority: Secondary Status: Acute (5) NSIP (nonspecific interstitial pneumonia) Priority: Secondary Status: Acute - Respiratory Orders Smoking Cessation: Smoking cessation has been advised. For more information, call the [place] Tobacco Quit Line at 0-869-RJBT-NOW. - Activity Activity Orders: Walker - Services Needed Following services are medically necessary services: Nursing, Physical Therapy - Transfer Medications Home Medications: Aspirin [Lo-Dose Aspirin EC] 81 mg PO DAILY 12/24/17 [History] Baclofen [Lioresal] 10 mg PO TID 12/24/17 [History] Diltiazem SR (12hr) [Cardizem SR] 60 mg PO QAM 12/24/17 [History] Doxepin HCl 300 mg PO HS 12/24/17 [History] Nabumetone [Relafen] 500 mg PO TID 12/24/17 [History] Omeprazole [PriLOSEC] 40 mg PO DAILY 12/24/17 [History] PARoxetine HCl [Paroxetine HCl] 60 mg PO DAILY 12/24/17 [History] Propranolol [Inderal] 10 mg PO BID 12/24/17 [History] Ropinirole HCl [Requip] 0.5 mg PO HS 12/24/17 [History] chlorproMAZINE [Thorazine] 100 mg PO HS 30 Days #30 tablet 12/31/17 [Rx] hydrOXYzine HCl [Hydroxyzine HCl] 25 mg PO BID #0 12/31/17 [Rx] Azithromycin [Zithromax] 250 mg PO DAILY #3 tablet 01/07/18 [Rx] Ipratropium/Albuterol Neb [Duoneb] 3 ml IH [id number] PRN #30 inhsol 01/07/18 [Rx] predniSONE [PredniSONE] 50 mg PO DAILY 14 Days #35 tablet 01/07/18 [Rx] Allergies/Adverse Reactions: 3 Allergy/AdvReac Type Severity Reaction Status Date / Time metoclopramide [From Reglan] Allergy Mild Itching Verified 11/03/17 14:57 tramadol Allergy Mild Itching Verified 11/03/17 14:57 amitriptyline Allergy Itching Verified 11/03/17 14:57 codeine Allergy Hives Verified 11/03/17 14:57 Sulfa (Sulfonamide Allergy See Verified 11/03/17 14:57 Antibiotics) Comments sulfamethoxazole Allergy See Verified 11/03/17 14:57 [From Bactrim] Comments trimethoprim [From Bactrim] Allergy See Verified 11/03/17 14:57 Comments lorazepam [From Ativan] AdvReac Mild Anxiety Verified 11/03/17 14:57 benztropine [From Cogentin] AdvReac See Verified 11/03/17 14:57 Comments ciprofloxacin [From Cipro] AdvReac See Verified 11/03/17 14:57 Comments onabotulinumtoxinA AdvReac See Verified 11/03/17 14:57 [From Botox] Comments sertraline [From Zoloft] AdvReac Headache Verified 11/03/17 14:57 sumatriptan [From Imitrex] AdvReac Agitated Verified 11/03/17 14:57 topiramate [From Topamax] AdvReac See Verified 11/03/17 14:57 Comments Certification: Further, I certify that my clinical findings support that this patient is homebound (i.e. absences from home require considerable and taxing effort and are for medical reasons or sabianism services or infrequently or short duration when for other reasons) because: Homebound Reason: Leaving home requires considerable and taxing effort due to condition Attestation: My signature below is to certify that this patient is under my care and that I, or nurse practitioner, or a physician's store assistant working with me, has a face-to -face encounter with this patient.
--- NOTE | 2018-01-10 17:09 | Electrocardiograph Report ---
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
--- NOTE | 2018-01-12 22:33 | Electrocardiograph Report ---
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
== END 2018-01-10 16:55 | disposition home or self-care (01) ==
LOC: EMEROOARM 22:14 → 3BNU 22:14
PROVIDERS: ADMIT Family Medicine; ATTEND Family Medicine

== ENCOUNTER 2018-01-12 07:47 | Observation (INO) ==
[2018-01-12] MEDS ORDERED: 0.9 % Sodium Chloride 1,000 ML IVC ONE ×2 (07:54→09:10)
[2018-01-12 08:15] LABS: Bilirubin,Urine Negative (Negative); Blood,Urine Negative (Negative); Clarity,Urine Clear (Clear); Color,Urine Yellow (Yellow); Glucose,Urine (UA) Normal (Normal); Ketones,Urine Negative (Negative); Leukocyte Esterase,Urine Negative (Negative); Nitrite,Urine Negative (Negative); PH,Urine 6.5 pH Units (5.0-8.0); Protein,Urine Negative (Neg-Trace); Specific Gravity,Urine 1.025 (1.010-1.025); Urobilinogen,Urine Normal (Normal)
[2018-01-12 08:47] LABS: Basophils % 0.2 %; Eosinophils % 0.1 %; Hematocrit 43.8 % (35.3-44.9); Immature Granulocytes % 1.8 % (0-4); Lymphocytes # 1.7 K/mcL (0.6-4.6); Lymphocytes % 10.2 %; Mean Corpuscular HGB Conc 32.6 g/dL (31.6-35.5); Mean Corpuscular Hemoglobin 29.8 pg (28.0-33.3); Mean Corpuscular Volume 91.3 fL (83.0-100.0); Monocytes # 0.8 K/mcL (0.0-1.3); Monocytes % 4.5 %; Neutrophils # 14.1 K/mcL (1.6-8.9); Platelet Count 330 K/mcL (140-400); Red Cell Distribution Width 12.7 % (11.5-14.5); Segmented Neutrophils % 83.2 %
[2018-01-12 08:48] LABS: Hemoglobin 14.3 g/dL (11.5-15.4)
[2018-01-12 08:53] LABS: INR 0.9; Prothrombin Time 10.5 Seconds (9.4-12.1)
[2018-01-12 08:56] LABS: Activated Partial Thrombo Time 47.5 Seconds (26.0-36.0)
--- NOTE | 2018-01-12 09:09 | Emergency Department Note ---
Disposition Clinical Impression: Altered mental status, Polypharmacy Disposition: Admitted As Inpatient Condition: Fair General Adult HPI - General Stated complaint: AMS Time Seen by Provider: 01/12/18 07:52 Source: patient, EMS Limitations: altered mental status - History of Present Illness Pain Scale: 8 - Related Data Home Medications Medication Instructions Recorded Confirmed Aspirin [Lo-Dose Aspirin EC] 81 mg PO DAILY 12/24/17 01/09/18 Baclofen [Lioresal] 10 mg PO TID 12/24/17 01/09/18 Diltiazem SR (12hr) [Cardizem SR] 60 mg PO QAM 12/24/17 01/09/18 Doxepin HCl 300 mg PO HS 12/24/17 01/09/18 Nabumetone [Relafen] 500 mg PO TID 12/24/17 01/09/18 Omeprazole [PriLOSEC] 40 mg PO DAILY 12/24/17 01/09/18 PARoxetine HCl [Paroxetine HCl] 60 mg PO DAILY 12/24/17 01/09/18 Propranolol [Inderal] 10 mg PO BID 12/24/17 01/09/18 Ropinirole HCl [Requip] 0.5 mg PO HS 12/24/17 01/09/18 Previous Rx's Medication Instructions Recorded chlorproMAZINE [Thorazine] 100 mg PO HS 30 Days #30 tablet 12/31/17 hydrOXYzine HCl [Hydroxyzine HCl] 25 mg PO BID #0 12/31/17 Azithromycin [Zithromax] 250 mg PO DAILY #3 tablet 01/07/18 Ipratropium/Albuterol Neb [Duoneb] 3 ml IH [id number] PRN #30 inhsol 01/07/18 predniSONE [PredniSONE] 50 mg PO DAILY 14 Days #35 tablet 01/07/18 Allergies Allergy/AdvReac Type Severity Reaction Status Date / Time metoclopramide [From Reglan] Allergy Mild Itching Verified 11/03/17 14:57 tramadol Allergy Mild Itching Verified 11/03/17 14:57 amitriptyline Allergy Itching Verified 11/03/17 14:57 codeine Allergy Hives Verified 11/03/17 14:57 Sulfa (Sulfonamide Allergy See Verified 11/03/17 14:57 Antibiotics) Comments sulfamethoxazole Allergy See Verified 11/03/17 14:57 [From Bactrim] Comments trimethoprim [From Bactrim] Allergy See Verified 11/03/17 14:57 Comments lorazepam [From Ativan] AdvReac Mild Anxiety Verified 11/03/17 14:57 benztropine [From Cogentin] AdvReac See Verified 11/03/17 14:57 Comments ciprofloxacin [From Cipro] AdvReac See Verified 11/03/17 14:57 Comments onabotulinumtoxinA AdvReac See Verified 11/03/17 14:57 [From Botox] Comments sertraline [From Zoloft] AdvReac Headache Verified 11/03/17 14:57 sumatriptan [From Imitrex] AdvReac Agitated Verified 11/03/17 14:57 topiramate [From Topamax] AdvReac See Verified 11/03/17 14:57 Comments Past Medical History - Past Medical History Medical history: Reports: non-contributory, arthritis, CHF, migraine Surgical history: Reports: , cholecystectomy, herniorrhaphy, hysterectomy Psychiatric history: Reports: anxiety, bipolar, depression 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 history: Reports: no 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 ANALYST history, other - Social History Smoking Status: Former smoker Smokeless Tobacco Status: No Alcohol use: Reports: none Drug use: Reports: none Physical Exam - General Limitations: altered mental status General appearance: alert Course Vital Signs Temperature 98.0 F 01/12/18 07:48 Pulse Rate 113 01/12/18 07:48 Respiratory Rate 18 01/12/18 07:48 Blood Pressure 126/86 01/12/18 07:48 O2 Sat by Pulse Oximetry 96 01/12/18 07:48 Temperature 97.7 F 01/12/18 11:04 Pulse Rate 98 01/12/18 11:04 Respiratory Rate 15 01/12/18 11:04 Blood Pressure 159/81 01/12/18 11:04 O2 Sat by Pulse Oximetry 96 01/12/18 11:04 Oxygen Delivery Oxygen Delivery Room Air Medical Decision Making - Lab Data Result diagrams: 01/12/18 08:36 01/12/18 08:36 Lab Results 01/12/18 01/12/18 01/12/18 Range/Units 07:59 08:19 08:36 WBC 16.9 H (4.3-11.1) K/mcL RBC 4.80 (3.82-4.97) M/mcL Hgb 14.3 D (11.5-15.4) g/dL Hct 43.8 (35.3-44.9) % MCV 91.3 (83.0-100.0) fL MCH 29.8 (28.0-33.3) pg MCHC 32.6 (31.6-35.5) g/dL RDW 12.7 (11.5-14.5) % Plt Count 330 (140-400) K/mcL MPV 10.0 (9.4-12.4) fL Immature Gran % 1.8 (0-4) % Seg Neutrophils % 83.2 % Lymphocytes % 10.2 % Monocytes % 4.5 % Eosinophils % 0.1 % Basophils % 0.2 % Neutrophils # 14.1 H (1.6-8.9) K/mcL Lymphocytes # 1.7 (0.6-4.6) K/mcL Monocytes # 0.8 (0.0-1.3) K/mcL Eosinophils # 0.0 (0.0-0.6) K/mcL Basophils # 0.0 (0.0-0.2) K/mcL PT (9.4-12.1) Seconds INR APTT (26.0-36.0) Seconds Sodium (136-145) mEq/L Potassium (3.5-5.1) mEq/L Chloride (98-107) mEq/L Carbon Dioxide (23-29) mEq/L BUN (6-20) mg/dL Creatinine (0.60-1.20) mg/dL Est GFR ( Amer) (> 60) Est GFR (Non-Af Amer) (> 60) BUN/Creatinine Ratio (6-26) Glucose (70-105) mg/dL Calculated Osmolality (280-300) Calcium (8.6-10.3) mg/dL Total Bilirubin (0.3-1.0) mg/dL Direct Bilirubin (0.0-0.2) mg/dL Indirect Bilirubin (0.0-1.2) mg/dL AST (13-39) Units/L ALT (7-52) Units/L Alkaline Phosphatase (34-104) Units/L Troponin I (< 0.04) ng/mL Serum Total Protein (6.4-8.9) g/dL Albumin (3.5-5.7) g/dL Globulin (2.4-3.5) g/dL Albumin/Globulin Ratio (1.1-2.2) Urine Color Yellow (Yellow) Urine Clarity Clear (Clear) Urine pH 6.5 (5.0-8.0) pH Units Ur Specific [place] 1.025 (1.010-1.025) Urine Protein Negative (Neg-Trace) mg/dL Urine Glucose (UA) Normal (Normal) mg/dL Urine Ketones Negative (Negative) mg/dL Urine Blood Negative (Negative) Urine Nitrite Negative (Negative) Urine Bilirubin Negative (Negative) Urine Urobilinogen Normal (Normal) mg/dL Ur Leukocyte Esterase Negative (Negative) Ur Culture Indicated? NO (NO) Salicylates (15.0-30.0) mg/dL Urine Opiates Screen Negative (Iztrrh=377) ng/mL Acetaminophen (10-20) mcg/mL Ur Barbiturates Screen Negative (Cvgzkr=616) ng/mL Ur Phencyclidine Scrn Negative (Cutoff=25) ng/mL Ur Amphetamines Screen Negative (Fmtplm=6826) ng/mL U Benzodiazepines Scrn Negative (Eaaffr=869) ng/mL Urine Cocaine Screen Negative (Cutoff= 300) ng/mL U Marijuana (THC) Screen Negative (Cutoff = 50) ng/mL Ur Drug Screen Interp See Below Ethyl Alcohol (Less than 10) mg/dL 01/12/18 01/12/18 Range/Units 08:36 08:36 WBC (4.3-11.1) K/mcL RBC (3.82-4.97) M/mcL Hgb (11.5-15.4) g/dL Hct (35.3-44.9) % MCV (83.0-100.0) fL MCH (28.0-33.3) pg MCHC (31.6-35.5) g/dL RDW (11.5-14.5) % Plt Count (140-400) K/mcL MPV (9.4-12.4) fL Immature Gran % (0-4) % Seg Neutrophils % % Lymphocytes % % Monocytes % % Eosinophils % % Basophils % % Neutrophils # (1.6-8.9) K/mcL Lymphocytes # (0.6-4.6) K/mcL Monocytes # (0.0-1.3) K/mcL Eosinophils # (0.0-0.6) K/mcL Basophils # (0.0-0.2) K/mcL PT 10.5 (9.4-12.1) Seconds INR 0.9 APTT 47.5 H (26.0-36.0) Seconds Sodium 139 (136-145) mEq/L Potassium 4.4 (3.5-5.1) mEq/L Chloride 107 (98-107) mEq/L Carbon Dioxide 25 (23-29) mEq/L BUN 27 H (6-20) mg/dL Creatinine 0.98 (0.60-1.20) mg/dL Est GFR ( Amer) > 60 (> 60) Est GFR (Non-Af Amer) 58 L (> 60) BUN/Creatinine Ratio 28 H (6-26) Glucose 137 H (70-105) mg/dL Calculated Osmolality 295 (280-300) Calcium 9.3 (8.6-10.3) mg/dL Total Bilirubin 0.3 (0.3-1.0) mg/dL Direct Bilirubin 0.1 (0.0-0.2) mg/dL Indirect Bilirubin 0.2 (0.0-1.2) mg/dL AST 40 H (13-39) Units/L ALT 127 H (7-52) Units/L Alkaline Phosphatase 171 H (34-104) Units/L Troponin I < 0.03 (< 0.04) ng/mL Serum Total Protein 6.5 (6.4-8.9) g/dL Albumin 3.7 (3.5-5.7) g/dL Globulin 2.8 (2.4-3.5) g/dL Albumin/Globulin Ratio 1.3 (1.1-2.2) Urine Color (Yellow) Urine Clarity (Clear) Urine pH (5.0-8.0) pH Units Ur Specific [place] (1.010-1.025) Urine Protein (Neg-Trace) mg/dL Urine Glucose (UA) (Normal) mg/dL Urine Ketones (Negative) mg/dL Urine Blood (Negative) Urine Nitrite (Negative) Urine Bilirubin (Negative) Urine Urobilinogen (Normal) mg/dL Ur Leukocyte Esterase (Negative) Ur Culture Indicated? (NO) Salicylates < 2.5 L (15.0-30.0) mg/dL Urine Opiates Screen (Iipddm=372) ng/mL Acetaminophen < 10 L (10-20) mcg/mL Ur Barbiturates Screen (Zkcfvl=408) ng/mL Ur Phencyclidine Scrn (Cutoff=25) ng/mL Ur Amphetamines Screen (Behtdg=2161) ng/mL U Benzodiazepines Scrn (Wozdrb=978) ng/mL Urine Cocaine Screen (Cutoff= 300) ng/mL U Marijuana (THC) Screen (Cutoff = 50) ng/mL Ur Drug Screen Interp Ethyl Alcohol < 10 (Less than 10) mg/dL Attestation Statement - Attestation Attestation: I examined this patient and my medical decision-making was reviewed with the Resident Physician. I agree with the documented findings, disposition and treatment plan as described except to the extent set forth below. Patient to the ED with altered mental status. Patient recently had 2 admissions. 1 for a fall and 1 for pneumonia. History is mostly provided by her mom. She states she is not drinking and not acting right. Mother is very anxious and unable to provide any further history than that. She is unsure of her medications. Unsure how long she is on his medications. On examination she is laying in the bed. She has an occasional twitch of her arms. She follows commands. She has multiple ecchymotic areas to her abdomen. Dry mucous membranes. Keeps repeating that she needs to pee. Plan. Altered mental status workup. Patient is on multiple medications including Requip. I suspect her altered mental status is secondary to her medications. Patient is unsafe for discharge home.
[2018-01-12 09:10] LABS: Acetaminophen < 10 mcg/mL (10-20); Alanine Aminotransferase 127 Units/L (7-52); Albumin 3.7 g/dL (3.5-5.7); Albumin/Globulin Ratio 1.3 (1.1-2.2); Alkaline Phosphatase 171 Units/L (34-104); Aspartate Amino Transferase 40 Units/L (13-39); BUN/Creatinine Ratio 28 (6-26); Bilirubin,Direct 0.1 mg/dL (0.0-0.2); Bilirubin,Indirect 0.2 mg/dL (0.0-1.2); Bilirubin,Total 0.3 mg/dL (0.3-1.0); Blood Urea Nitrogen 27 mg/dL (6-20); Calcium 9.3 mg/dL (8.6-10.3); Carbon Dioxide 25 mEq/L (23-29); Chloride 107 mEq/L (98-107); Ethanol < 10 mg/dL (Less than 10); Globulin 2.8 g/dL (2.4-3.5); Glucose 137 mg/dL (70-105); Osmolality,Calculated 295 (280-300); Potassium 4.4 mEq/L (3.5-5.1); Salicylate < 2.5 mg/dL (15.0-30.0); Sodium 139 mEq/L (136-145); Total Protein 6.5 g/dL (6.4-8.9); eGFR For Non-African Americans 58 (> 60)
[2018-01-12 09:11] LABS: Troponin I < 0.03 ng/mL (< 0.04)
--- NOTE | 2018-01-12 09:31 | Emergency Department Note ---
Disposition Clinical Impression: Altered mental status, Polypharmacy Disposition: Admitted As Inpatient Condition: Fair General Adult HPI - General Chief complaint: ED Altered Mental Status Stated complaint: AMS Time Seen by Provider: 01/12/18 07:52 Source: patient, EMS Mode of arrival: EMS Limitations: altered mental status Nursing Notes Reviewed: Yes Vital Signs Reviewed: Yes - History of Present Illness HPI Narrative: 57-year-old female with complex past medical history presenting to the emergency department with chief complaint of altered mental status. According to family members and EMS yesterday patient was doing well. Patient was recently discharged from the hospital and started on prednisone and an antibiotic. Patient was doing well yesterday. Denied any medical concerns or complaints and was at mental baseline according to parents. This morning when they went to see her she was altered and completely naked. All she could say was I need to pee. Patient was alert to herself but otherwise not oriented in any way. During the physical exam the patient keeps stating that she needs pee. She states she has some abdominal pain as well. Patient unable to provide any other history. Pain Scale: 8 - Related Data Home Medications Medication Instructions Recorded Confirmed Aspirin [Lo-Dose Aspirin EC] 81 mg PO DAILY 12/24/17 01/09/18 Baclofen [Lioresal] 10 mg PO TID 12/24/17 01/09/18 Diltiazem SR (12hr) [Cardizem SR] 60 mg PO QAM 12/24/17 01/09/18 Doxepin HCl 300 mg PO HS 12/24/17 01/09/18 Nabumetone [Relafen] 500 mg PO TID 12/24/17 01/09/18 Omeprazole [PriLOSEC] 40 mg PO DAILY 12/24/17 01/09/18 PARoxetine HCl [Paroxetine HCl] 60 mg PO DAILY 12/24/17 01/09/18 Propranolol [Inderal] 10 mg PO BID 12/24/17 01/09/18 Ropinirole HCl [Requip] 0.5 mg PO HS 12/24/17 01/09/18 Previous Rx's Medication Instructions Recorded chlorproMAZINE [Thorazine] 100 mg PO HS 30 Days #30 tablet 12/31/17 hydrOXYzine HCl [Hydroxyzine HCl] 25 mg PO BID #0 12/31/17 Azithromycin [Zithromax] 250 mg PO DAILY #3 tablet 01/07/18 Ipratropium/Albuterol Neb [Duoneb] 3 ml IH [id number] PRN #30 inhsol 01/07/18 predniSONE [PredniSONE] 50 mg PO DAILY 14 Days #35 tablet 01/07/18 Allergies Allergy/AdvReac Type Severity Reaction Status Date / Time metoclopramide [From Reglan] Allergy Mild Itching Verified 11/03/17 14:57 tramadol Allergy Mild Itching Verified 11/03/17 14:57 amitriptyline Allergy Itching Verified 11/03/17 14:57 codeine Allergy Hives Verified 11/03/17 14:57 Sulfa (Sulfonamide Allergy See Verified 11/03/17 14:57 Antibiotics) Comments sulfamethoxazole Allergy See Verified 11/03/17 14:57 [From Bactrim] Comments trimethoprim [From Bactrim] Allergy See Verified 11/03/17 14:57 Comments lorazepam [From Ativan] AdvReac Mild Anxiety Verified 11/03/17 14:57 benztropine [From Cogentin] AdvReac See Verified 11/03/17 14:57 Comments ciprofloxacin [From Cipro] AdvReac See Verified 11/03/17 14:57 Comments onabotulinumtoxinA AdvReac See Verified 11/03/17 14:57 [From Botox] Comments sertraline [From Zoloft] AdvReac Headache Verified 11/03/17 14:57 sumatriptan [From Imitrex] AdvReac Agitated Verified 11/03/17 14:57 topiramate [From Topamax] AdvReac See Verified 11/03/17 14:57 Comments Limitations: ROS unobtainable due to patients medical condition Past Medical History - Past Medical History Attestation: Yes The following information was validated with the patient. Source: old records reviewed Medical history: Reports: non-contributory, arthritis, CHF, migraine Surgical history: Reports: , cholecystectomy, herniorrhaphy, hysterectomy Psychiatric history: Reports: anxiety, bipolar, depression EMBEDDED DEVELOPER history: Reports: no EMBEDDED DEVELOPER history, other - Social History Smoking Status: Former smoker Smokeless Tobacco Status: No Alcohol use: Reports: none Drug use: Reports: none Physical Exam - General Limitations: altered mental status General appearance: alert - Head Head exam: atraumatic, normocephalic, normal inspection - Eye Eye exam: Present: EOMI, other (fixed pupils). Absent: scleral icterus, conjunctival injection - ENT ENT exam: mucous membranes dry - Neck Neck exam: Present: normal inspection. Absent: tenderness - Chest Chest inspection: Present: normal inspection, symmetric chest wall rise. Absent : tenderness - Respiratory Respiratory exam: Present: normal lung sounds bilaterally. Absent: respiratory distress, wheezes - Cardiovascular Cardiovascular exam: Present: normal rhythm, tachycardia, normal heart sounds - Abdominal Exam Abdominal exam: Present: soft, tenderness, other (Multiple ecchymosis noted over the abdomen). Absent: distention, guarding, rebound, rigidity Abdominal tenderness: Present: diffuse, mild - Extremities Exam Extremities exam: Present: full ROM - Neurological Exam Neurological exam: Present: alert - Skin Skin exam: Present: warm Course Course Narrative: 57-year-old female presenting for altered mental status. Patient's physical exam shows multiple ecchymosis along the abdomen and abdominal tenderness. Patient's pupils are fixed the extraocular movements are intact. Patient alert to herself. Physical exam otherwise benign. Vital signs are stable. We will perform a altered mental status workup with labs, EKG, CT of the head. Concern for polypharmacy and medication effects. Disposition most likely admission but pending results. - Reevaluation(s) Reevaluation #1: Patient's laboratory analysis shows mild leukocytosis along with elevated liver enzymes. Otherwise benign. Drug screening negative. CT of the head within normal limits. Patient still remains alert and oriented 2. Vital signs stable. Patient will be admitted at this time for further evaluation. I spoke with the hospitalist quality control manager Dr. Stevens who agrees to accept the patient at this time. Family members at bedside and agreed with this plan. Vital Signs Temperature 98.0 F 01/12/18 07:48 Pulse Rate 113 01/12/18 07:48 Respiratory Rate 18 01/12/18 07:48 Blood Pressure 126/86 01/12/18 07:48 O2 Sat by Pulse Oximetry 96 01/12/18 07:48 Temperature 97.7 F 01/12/18 11:04 Pulse Rate 98 01/12/18 11:04 Respiratory Rate 15 01/12/18 11:04 Blood Pressure 159/81 01/12/18 11:04 O2 Sat by Pulse Oximetry 96 01/12/18 11:04 Oxygen Delivery Oxygen Delivery Room Air Medical Decision Making - Lab Data Result diagrams: 01/12/18 08:36 01/12/18 08:36 Lab Results 01/12/18 01/12/18 01/12/18 Range/Units 07:59 08:19 08:36 WBC 16.9 H (4.3-11.1) K/mcL RBC 4.80 (3.82-4.97) M/mcL Hgb 14.3 D (11.5-15.4) g/dL Hct 43.8 (35.3-44.9) % MCV 91.3 (83.0-100.0) fL MCH 29.8 (28.0-33.3) pg MCHC 32.6 (31.6-35.5) g/dL RDW 12.7 (11.5-14.5) % Plt Count 330 (140-400) K/mcL MPV 10.0 (9.4-12.4) fL Immature Gran % 1.8 (0-4) % Seg Neutrophils % 83.2 % Lymphocytes % 10.2 % Monocytes % 4.5 % Eosinophils % 0.1 % Basophils % 0.2 % Neutrophils # 14.1 H (1.6-8.9) K/mcL Lymphocytes # 1.7 (0.6-4.6) K/mcL Monocytes # 0.8 (0.0-1.3) K/mcL Eosinophils # 0.0 (0.0-0.6) K/mcL Basophils # 0.0 (0.0-0.2) K/mcL PT (9.4-12.1) Seconds INR APTT (26.0-36.0) Seconds Sodium (136-145) mEq/L Potassium (3.5-5.1) mEq/L Chloride (98-107) mEq/L Carbon Dioxide (23-29) mEq/L BUN (6-20) mg/dL Creatinine (0.60-1.20) mg/dL Est GFR ( Amer) (> 60) Est GFR (Non-Af Amer) (> 60) BUN/Creatinine Ratio (6-26) Glucose (70-105) mg/dL Calculated Osmolality (280-300) Calcium (8.6-10.3) mg/dL Total Bilirubin (0.3-1.0) mg/dL Direct Bilirubin (0.0-0.2) mg/dL Indirect Bilirubin (0.0-1.2) mg/dL AST (13-39) Units/L ALT (7-52) Units/L Alkaline Phosphatase (34-104) Units/L Troponin I (< 0.04) ng/mL Serum Total Protein (6.4-8.9) g/dL Albumin (3.5-5.7) g/dL Globulin (2.4-3.5) g/dL Albumin/Globulin Ratio (1.1-2.2) Urine Color Yellow (Yellow) Urine Clarity Clear (Clear) Urine pH 6.5 (5.0-8.0) pH Units Ur Specific Stanford 1.025 (1.010-1.025) Urine Protein Negative (Neg-Trace) mg/dL Urine Glucose (UA) Normal (Normal) mg/dL Urine Ketones Negative (Negative) mg/dL Urine Blood Negative (Negative) Urine Nitrite Negative (Negative) Urine Bilirubin Negative (Negative) Urine Urobilinogen Normal (Normal) mg/dL Ur Leukocyte Esterase Negative (Negative) Ur Culture Indicated? NO (NO) Salicylates (15.0-30.0) mg/dL Urine Opiates Screen Negative (Eahlgw=869) ng/mL Acetaminophen (10-20) mcg/mL Ur Barbiturates Screen Negative (Opbdwu=178) ng/mL Ur Phencyclidine Scrn Negative (Cutoff=25) ng/mL Ur Amphetamines Screen Negative (Dppwcw=1631) ng/mL U Benzodiazepines Scrn Negative (Fplkts=792) ng/mL Urine Cocaine Screen Negative (Cutoff= 300) ng/mL U Marijuana (THC) Screen Negative (Cutoff = 50) ng/mL Ur Drug Screen Interp See Below Ethyl Alcohol (Less than 10) mg/dL 18 01/12/18 Range/Units 08:36 08:36 WBC (4.3-11.1) K/mcL RBC (3.82-4.97) M/mcL Hgb (11.5-15.4) g/dL Hct (35.3-44.9) % MCV (83.0-100.0) fL MCH (28.0-33.3) pg MCHC (31.6-35.5) g/dL RDW (11.5-14.5) % Plt Count (140-400) K/mcL MPV (9.4-12.4) fL Immature Gran % (0-4) % Seg Neutrophils % % Lymphocytes % % Monocytes % % Eosinophils % % Basophils % % Neutrophils # (1.6-8.9) K/mcL Lymphocytes # (0.6-4.6) K/mcL Monocytes # (0.0-1.3) K/mcL Eosinophils # (0.0-0.6) K/mcL Basophils # (0.0-0.2) K/mcL PT 10.5 (9.4-12.1) Seconds INR 0.9 APTT 47.5 H (26.0-36.0) Seconds Sodium 139 (136-145) mEq/L Potassium 4.4 (3.5-5.1) mEq/L Chloride 107 (98-107) mEq/L Carbon Dioxide 25 (23-29) mEq/L BUN 27 H (6-20) mg/dL Creatinine 0.98 (0.60-1.20) mg/dL Est GFR ( Amer) > 60 (> 60) Est GFR (Non-Af Amer) 58 L (> 60) BUN/Creatinine Ratio 28 H (6-26) Glucose 137 H (70-105) mg/dL Calculated Osmolality 295 (280-300) Calcium 9.3 (8.6-10.3) mg/dL Total Bilirubin 0.3 (0.3-1.0) mg/dL Direct Bilirubin 0.1 (0.0-0.2) mg/dL Indirect Bilirubin 0.2 (0.0-1.2) mg/dL AST 40 H (13-39) Units/L ALT 127 H (7-52) Units/L Alkaline Phosphatase 171 H (34-104) Units/L Troponin I < 0.03 (< 0.04) ng/mL Serum Total Protein 6.5 (6.4-8.9) g/dL Albumin 3.7 (3.5-5.7) g/dL Globulin 2.8 (2.4-3.5) g/dL Albumin/Globulin Ratio 1.3 (1.1-2.2) Urine Color (Yellow) Urine Clarity (Clear) Urine pH (5.0-8.0) pH Units Ur Specific Stanford (1.010-1.025) Urine Protein (Neg-Trace) mg/dL Urine Glucose (UA) (Normal) mg/dL Urine Ketones (Negative) mg/dL Urine Blood (Negative) Urine Nitrite (Negative) Urine Bilirubin (Negative) Urine Urobilinogen (Normal) mg/dL Ur Leukocyte Esterase (Negative) Ur Culture Indicated? (NO) Salicylates < 2.5 L (15.0-30.0) mg/dL Urine Opiates Screen (Pyreqn=697) ng/mL Acetaminophen < 10 L (10-20) mcg/mL Ur Barbiturates Screen (Haptfh=765) ng/mL Ur Phencyclidine Scrn (Cutoff=25) ng/mL Ur Amphetamines Screen (Lqdtvk=8591) ng/mL U Benzodiazepines Scrn (Bexudo=771) ng/mL Urine Cocaine Screen (Cutoff= 300) ng/mL U Marijuana (THC) Screen (Cutoff = 50) ng/mL Ur Drug Screen Interp Ethyl Alcohol < 10 (Less than 10) mg/dL - EKG Data EKG #1 EKG attestation: Yes I reviewed and interpreted this EKG. EKG results narrative: Sinus tachycardia. 113 beats for minute. IA interval 163, QRS 102, QTC 469. Significant artifact in the EKG. No obvious ST segment elevation or ischemia.
[2018-01-12 09:48] LABS: Amphetamine Screen,Urine Negative ng/mL (Cutoff=1000); Barbiturate Screen,Urine Negative ng/mL (Cutoff=200); Benzodiazepines Screen,Urine Negative ng/mL (Cutoff=200); Cannabinoid Screen,Urine Negative ng/mL (Cutoff = 50); Cocaine Screen,Urine Negative ng/mL (Cutoff= 300); Opiate Screen,Urine Negative ng/mL (Cutoff=300); Phencyclidine Screen,Urine Negative ng/mL (Cutoff=25)
[2018-01-12] MEDS ORDERED: Naloxone 0.4 MG/ML INJ IVP PRN (10:09)
[2018-01-12] MEDS ORDERED: Ipratropium/Albuterol Neb 3 ML IH PRN (10:11)
[2018-01-12] MEDS ORDERED: Ondansetron 4 MG/2 ML VIAL IVP PRN (10:18)
--- NOTE | 2018-01-12 10:46 | Internal Med History&Physical ---
Date of Encounter: 01/12/18 Time of Encounter: 10:40 Internal Medicine - H&P: HPI Chief complaint: Altered mental status, confusion this am History of present illness: Ms. Montoya is a 57 year old female with pmh of diastolic CHF, interstitial lung disease on steroids, bipola disorder, restless leg syndrome and on multiple medications including anticholinergics amd agents such as paxil, doxepin and chlopromazine presenting with acute confusion and jerky movements of the upper extremities of 1 day duration. History was provided by patient's mother as patient is still lethargic and confused. She noted that she gave patient her meds last night, and patient was fine throughout the day and went to bed and was fine. She woke up to patient having jerky movements of her upper extremities this am and staring into space. She was able to rouse her, but says she was confused and wasn't able to answer any questions. EMS brought her in for the confusion. In the ER, she has since had a marked improvement in her mental status, although she is not able to recall the events from this am. She does complain of a dry mouth. She was given IV fluids and a CT head was done which came back normal. She is being admitted for further management Past Med Surg Social Fam HX - Past Medical History Medical history: non-contributory, arthritis, CHF, migraine Additional medical history: pt denies any history Psychiatric history: anxiety, bipolar, depression - Past Surgical History Surgical History: , cholecystectomy, herniorrhaphy, hysterectomy Additional surgical history: Lung BX- right. - Social History Smoking Status: Former smoker Smokeless Tobacco Status: No Alcohol use: none Drug use: none - Family History Father Living Status: Still Living Hx Family Cardiac Disorders: Yes (heart disease) Mother Adopted: No Family Member Ethnicity: Non- Living Status: Still Living Hx Family Cardiac Disorders: No Hx Family Respiratory Disorders: Yes (short of breath) Hx Family Cancer: No Hx Family GI Disorders: No Hx Family Endocrine Disorder: No Hx Family Neuromuscular Disorders: No Hx Family Neurologic Disorders: No Hx Family HEENT Disorders: No Hx Family Autoimmune Disorders: Yes (hyperthyroid) Grandfather Living Status: Hx Family Cardiac Disorders: Yes Internal Medicine - H&P: Meds Aspirin [Lo-Dose Aspirin EC] 81 mg PO DAILY 12/24/17 [History] Baclofen [Lioresal] 10 mg PO TID 12/24/17 [History] Diltiazem SR (12hr) [Cardizem SR] 60 mg PO QAM 12/24/17 [History] Doxepin HCl 300 mg PO HS 12/24/17 [History] Nabumetone [Relafen] 500 mg PO TID 12/24/17 [History] Omeprazole [PriLOSEC] 40 mg PO DAILY 12/24/17 [History] PARoxetine HCl [Paroxetine HCl] 60 mg PO DAILY 12/24/17 [History] Propranolol [Inderal] 10 mg PO BID 12/24/17 [History] Ropinirole HCl [Requip] 0.5 mg PO HS 12/24/17 [History] hydrOXYzine HCl [Hydroxyzine HCl] 25 mg PO BID #0 12/31/17 [Rx] Azithromycin [Zithromax] 250 mg PO DAILY #3 tablet 01/07/18 [Rx] Ipratropium/Albuterol Neb [Duoneb] 3 ml IH [id number] PRN #30 inhsol 01/07/18 [Rx] predniSONE [PredniSONE] 50 mg PO DAILY 14 Days #35 tablet 01/07/18 [Rx] Chlorpromazine HCl 100 mg PO DAILY 01/12/18 [History] Chlorpromazine HCl 300 mg PO HS 01/12/18 [History] 3 Allergy/AdvReac Type Severity Reaction Status Date / Time metoclopramide [From Reglan] Allergy Mild Itching Verified 11/03/17 14:57 tramadol Allergy Mild Itching Verified 11/03/17 14:57 amitriptyline Allergy Itching Verified 11/03/17 14:57 codeine Allergy Hives Verified 11/03/17 14:57 Sulfa (Sulfonamide Allergy See Verified 11/03/17 14:57 Antibiotics) Comments sulfamethoxazole Allergy See Verified 11/03/17 14:57 [From Bactrim] Comments trimethoprim [From Bactrim] Allergy See Verified 11/03/17 14:57 Comments lorazepam [From Ativan] AdvReac Mild Anxiety Verified 11/03/17 14:57 benztropine [From Cogentin] AdvReac See Verified 11/03/17 14:57 Comments ciprofloxacin [From Cipro] AdvReac See Verified 11/03/17 14:57 Comments onabotulinumtoxinA AdvReac See Verified 11/03/17 14:57 [From Botox] Comments sertraline [From Zoloft] AdvReac Headache Verified 11/03/17 14:57 sumatriptan [From Imitrex] AdvReac Agitated Verified 11/03/17 14:57 topiramate [From Topamax] AdvReac See Verified 11/03/17 14:57 Comments All Systems PM: A 10-system review of systems was performed and is negative for pertinent findings except as documented above in the HPI. - Constitutional Constitutional: no chills, no fever(s), no night sweats - EENT Eyes: no change in vision, no discharge, no pain, no photophobia Ears: no ear discharge, no ear pain, no tinnitus Nose, mouth and throat: dry mouth, no dysphagia, no nasal discharge, no neck pain, no sore throat - Cardiovascular Cardiovascular ROS IM: no chest pain, no diaphoresis, no dyspnea, no lightheadedness, no palpitations, no syncope - Respiratory Respiratory: no cough, no dyspnea, no wheezing, no excessive phlegm production - Gastrointestinal Gastrointestinal: no abdominal pain, no diarrhea, no hematemesis, no hematochezia, no melena, no nausea, no vomiting - Genitourinary Genitourinary: no change in urinary stream, no dysuria, no flank pain, no hematuria - Musculoskeletal Musculoskeletal ROS IM: no numbness, no tingling - Integumentary Integumentary IM: no rash, no unusual bruising - Neurological Neurological ROS: confusion, no convulsions, no focal weakness, no numbness, no tingling, no tremor(s) - Psychiatric Psychiatric: confusion - Hematologic/Lymphatic Hematologic/Lymphatic: no easy bruising - Constitutional Vitals: Temp Pulse Resp BP Pulse Ox 98.0 F 105 18 135/92 98 01/12/18 07:48 01/12/18 10:02 01/12/18 10:02 01/12/18 09:00 01/12/18 10:02 General appearance: Present: obese Exam: NAD - Head Head exam: Present: atraumatic, normocephalic - Eye Eye exam: Present: PERRL, conjuntiva pink, sclera anicteric Pupils: Present: PERRL - Neck Neck exam general surgery: Present: supple, trachea midline. Absent: lymphadenopathy - Respiratory Respiratory exam: Present: CTAB. Absent: accessory muscle use, rales, rhonchi, wheezes - Cardiovascular Cardiovascular exam: Present: RRR, +S1, +S2. Absent: diastolic murmur, gallop, rubs, systolic murmur - GI/Abdominal GI/Abdominal exam: Present: normal bowel sounds, soft, no peritoneal signs. Absent: distended, tenderness - Extremities Exam Extremities exam: Present: warm, radial pulses palpable and symmetrical. Absent : calf tenderness, cyanotic, pedal edema - Neurological Exam Neurological exam: Present: CN II-XII intact, oriented X3, no focal deficits. Absent: pronater drift, facial droop, speech deficit - Skin Skin exam: Present: dry, intact Internal Med - H&P Results - Labs CBC & Chem 7: 01/12/18 08:36 01/12/18 08:36 - Assessment and plan (1) Acute encephalopathy Current Visit: Yes Status: Acute Assessment and plan: Pt presents with acute encephalopathy likely toxic vs seizures. She was noted to have jerky movements of her upper extremities and confusion She is however on multiple medications with anticholinergic side effects. Will hold off on all anticholinergics/ muscle relaxants/ SSRIs at this time such as chlorpromaxine, ropirinole, paroxetine, nabumetone and baclofen Will give IV fluids and supportive care. Obtain ABG. Neurology consulted and appreciate recs. CT head came back WNL (2) Diastolic CHF Current Visit: No Status: Acute Assessment and plan: Has chronic diastolic CHF. No acute exacerbation. will hydrate with iV fluids Qualifiers: Heart failure chronicity: chronic Qualified Code(s): I50.32 - Chronic diastolic (congestive) heart failure (3) Leukocytosis Current Visit: No Status: Acute Assessment and plan: Likely secondary to steroids.Obtain blood cultures, but will hold off on antibiotics as patient has no clear source of infection Qualifiers: Leukocytosis type: unspecified Qualified Code(s): D72.829 - Elevated white blood cell count, unspecified (4) NSIP (nonspecific interstitial pneumonia) Current Visit: No Status: Acute Assessment and plan: Will hold steroids due to acute confusion (5) DVT prophylaxis Current Visit: No Status: Acute Assessment and plan: Heparin sc - Time Spent With Patient Total time spent is greater than 50% in coordination of care (as documented) at patient's floor/unit and/or counseling patient:
[2018-01-12 12:13] LABS: ABG Base Excess -2 mEq/L (-2 to 3); ABG HCO3 22 mEq/L (21-27); ABG Oxygen Saturation 95 % (95-98); ABG PCO2 35 mmHg (35-45); ABG PH 7.41 pH Units (7.32-7.45); ABG PO2 72 mmHg (85-104); ABG TCO2 23 mEq/L (20-26)
[2018-01-12] MEDS: 0.9 % Sodium Chloride 1,000 ML IVC SCH ×3 (12:40→20:07)
--- NOTE | 2018-01-12 12:51 | Neurology - Consult Note ---
<Christoph Nazario P - Last Filed: 01/12/18 16:19> Date of Encounter: 01/12/18 Time of Encounter: 12:15 Assessment and Plan (1) Altered mental status Current Visit: No Status: Resolved The patient is on multiple medications : anticholinergics and paxil, doxepin and chlopromazinea She is a chronic patient of anxiety , depression , migraine , bipolar disorder : Reports: CT head:no acute intracranial abnormality. Carotid doppler: left side 40- 59% ICA stenosis ( previous visit) Eccho: 60% LVEF and mild LVDD ( previous visit) Urine toxicology : negative Liver enzymes: slightly elevated Qualifiers: Altered mental status type: unspecified Qualified Code(s): R41.82 - Altered mental status, unspecified (2) Seizure Current Visit: Yes Status: Acute The patient describes jerky type of movements in her limbs : suggesting medication induced movement disorder . She has more prominent symptoms in left side than right side No typical tonic-clonic type of movement noted, no tongue bite or no any bowel and bladder incontinence Has h/o pre-syncope The patient is on multiple medications : anticholinergics and paxil, doxepin and chlopromazin She is a chronic patient of anxiety , depression , migraine , bipolar disorder : Reports: CT head:no acute intracranial abnormality. Urine toxicology : negative Liver enzymes: slightly elevated History of Present Illness Chief complaint: altered mental status / Jerky movement sof limbs HPI: Ms. Montoya is a 57 year old female with past medical history of diastolic CHF, interstitial lung disease on steroids, bipolar disorder, restless leg syndrome and on multiple medications including anticholinergics and paxil, doxepin and chlopromazinea was admitted to [facility] via ED for altered mental status and jerky movements of limbs left side more than right side . She states that she didn't completely passed out , but has had lapse of memory, felt confused and wasn't able to answer questions and had repeated jerky movements of limbs..She was discharged from his hospital last week and she was on Prednisone and antibiotics. She denies any fall , typical seizure like activities( tonic clonic ) , weakness in limbs, vertigo. During my visit today , she was lying comfortably in her bed, taking breakfast . She didn't have any new symptoms. I couldn't see jerky movements , but has Vitals : BP 135/92, pulse 105, tem 98 F Labs : WBC 19.9, Neutrophil 14.1 Na 139, K 4.4 ,Creatinine 0.98 BUN 27,Calcium 9.3 Reports: CT head No acute intracranial abnormality. Carotid doppler: left side 40- 59% ICA stenosis ( previous visit) Eccho: 60% LVEF and mild LVDD ( previous visit) Urine toxicology : negative for barbiturates, opoid , alcohol and benzodiazepine this time . Liver enzymes: slightly elevated Sleep study done in the past : moderate KHALIF MRI done in 2017: No acute abnormality Past Med Surg Social Fam HX - Past Medical History Medical history: non-contributory, arthritis, CHF, migraine Additional medical history: pt denies any history Psychiatric history: anxiety, bipolar, depression - Past Surgical History Surgical History: , cholecystectomy, herniorrhaphy, hysterectomy Additional surgical history: Lung BX- right. - Social History Smoking Status: Former smoker Smokeless Tobacco Status: No Alcohol use: none Drug use: none - Family History Father Living Status: Still Living Hx Family Cardiac Disorders: Yes (heart disease) Mother Adopted: No Family Member Ethnicity: Non- Living Status: Still Living Hx Family Cardiac Disorders: No Hx Family Respiratory Disorders: Yes (short of breath) Hx Family Cancer: No Hx Family GI Disorders: No Hx Family Endocrine Disorder: No Hx Family Neuromuscular Disorders: No Hx Family Neurologic Disorders: No Hx Family HEENT Disorders: No Hx Family Autoimmune Disorders: Yes (hyperthyroid) Grandfather Living Status: Hx Family Cardiac Disorders: Yes Medications and Allergies Aspirin [Lo-Dose Aspirin EC] 81 mg PO DAILY 12/24/17 [History] Baclofen [Lioresal] 10 mg PO TID 12/24/17 [History] Diltiazem SR (12hr) [Cardizem SR] 60 mg PO QAM 12/24/17 [History] Doxepin HCl 300 mg PO HS 12/24/17 [History] Nabumetone [Relafen] 500 mg PO TID 12/24/17 [History] Omeprazole [PriLOSEC] 40 mg PO DAILY 12/24/17 [History] PARoxetine HCl [Paroxetine HCl] 60 mg PO DAILY 12/24/17 [History] Propranolol [Inderal] 10 mg PO BID 12/24/17 [History] Ropinirole HCl [Requip] 0.5 mg PO HS 12/24/17 [History] hydrOXYzine HCl [Hydroxyzine HCl] 25 mg PO BID #0 12/31/17 [Rx] Azithromycin [Zithromax] 250 mg PO DAILY #3 tablet 01/07/18 [Rx] Ipratropium/Albuterol Neb [Duoneb] 3 ml IH [id number] PRN #30 inhsol 01/07/18 [Rx] predniSONE [PredniSONE] 50 mg PO DAILY 14 Days #35 tablet 01/07/18 [Rx] Chlorpromazine HCl 100 mg PO DAILY 01/12/18 [History] Chlorpromazine HCl 300 mg PO HS 01/12/18 [History] 3 Allergy/AdvReac Type Severity Reaction Status Date / Time metoclopramide [From Reglan] Allergy Mild Itching Verified 11/03/17 14:57 tramadol Allergy Mild Itching Verified 11/03/17 14:57 amitriptyline Allergy Itching Verified 11/03/17 14:57 codeine Allergy Hives Verified 11/03/17 14:57 Sulfa (Sulfonamide Allergy See Verified 11/03/17 14:57 Antibiotics) Comments sulfamethoxazole Allergy See Verified 11/03/17 14:57 [From Bactrim] Comments trimethoprim [From Bactrim] Allergy See Verified 11/03/17 14:57 Comments lorazepam [From Ativan] AdvReac Mild Anxiety Verified 11/03/17 14:57 benztropine [From Cogentin] AdvReac See Verified 11/03/17 14:57 Comments ciprofloxacin [From Cipro] AdvReac See Verified 11/03/17 14:57 Comments onabotulinumtoxinA AdvReac See Verified 11/03/17 14:57 [From Botox] Comments sertraline [From Zoloft] AdvReac Headache Verified 11/03/17 14:57 sumatriptan [From Imitrex] AdvReac Agitated Verified 11/03/17 14:57 topiramate [From Topamax] AdvReac See Verified 11/03/17 14:57 Comments All Systems: The remainder of the systems were reviewed and are negative Physical Examination - Vital Signs Vital Signs: Initial Vital Signs Temp Pulse Resp BP Pulse Ox 98.0 F 113 18 126/86 96 01/12/18 07:48 01/12/18 07:48 01/12/18 07:48 01/12/18 07:48 01/12/18 07:48 - Constitutional General appearance: comfortable - Neurologic Sensorimotor examination: intact Detailed motor examination: full strength in all major muscle groups Motor examination - right side: 5/5: deltoids, biceps, triceps, wrist flexion, wrist extension, certified low vision therapist, hip flexors, tibialis Anterior, quadriceps, toe extension (EHL), plantarflexion Motor examination - left side: 55: deltoids, biceps, triceps, wrist flexion, wrist extension, hip flexors, certified low vision therapist, quadriceps, tibialis Anterior, toe extension (EHL), plantarflexion Detailed sensory examination: intact Reflexes: Biceps: 2+, Triceps: 2+, Brachioradialis: 2+, Patella: 2+, Achilles: 2 + Mental Status Examination: awake, alert, oriented to person, oriented to place, oriented to time, follows commands appropriately, answers questions appropriately Cranial nerve examination: PERRL, EOMI, visual barakat intact, sensory to face intact, no facial asymmetry is present Results - Laboratory Findings CBC and BMP: 01/12/18 08:36 01/12/18 08:36 Abnormal lab findings: Abnormal lab results WBC 16.9 K/mcL (4.3-11.1) H 01/12/18 08:36 Neutrophils # 14.1 K/mcL (1.6-8.9) H 01/12/18 08:36 APTT 47.5 Seconds (26.0-36.0) H 01/12/18 08:36 ABG pO2 72 mmHg (85-104) L 01/12/18 12:09 BUN 27 mg/dL (6-20) H 01/12/18 08:36 Est GFR (Non-Af Amer) 58 (> 60) L 01/12/18 08:36 BUN/Creatinine Ratio 28 (6-26) H 01/12/18 08:36 Glucose 137 mg/dL (70-105) H 01/12/18 08:36 AST 40 Units/L (13-39) H 01/12/18 08:36 ALT 127 Units/L (7-52) H 01/12/18 08:36 Alkaline Phosphatase 171 Units/L (34-104) H 01/12/18 08:36 Salicylates < 2.5 mg/dL (15.0-30.0) L 01/12/18 08:36 Acetaminophen < 10 mcg/mL (10-20) L 01/12/18 08:36 Consult Discharge Plan - Plan Referrals: NONE,PCP [Primary Care Provider] - <DoniLester Horne - Last Filed: 01/12/18 16:29> Date of Encounter: 01/12/18 Time of Encounter: 16:20 Assessment and Plan (1) Altered mental status Current Visit: No Status: Resolved As above. I am convinced that whatever is going on with this patient is certainly somehow related to her various medications. Her complaints of not being able to "Pee" might of been secondary to the anticoagulant neurologic effects of several of her medications. This might also be the cause for her acute mental status changes. She is also on chlorpromazine which does have dopaminergic blockade effects. We could possibly be dealing with neuroleptic malignant syndrome or perhaps even serotonin syndrome and its early stages. I would recommend a psychiatry review of her current medication list so that we can stop whichever ones are not absolutely necessary. I will check a CPK level. I do not feel that further neuroimaging or EEG are necessary at this time. Qualifiers: Altered mental status type: unspecified Qualified Code(s): R41.82 - Altered mental status, unspecified History of Present Illness HPI: The chart was reviewed, the patient was seen and examined independently. Case was discussed with my resident. I agree with his assessment of the history of present illness as stated above. Notably patient was very confused and kept saying over and over that she had to pee. She still has spontaneous twitching- like movements. This seemed to be more consistent with mild myoclonic type jerks. She currently seems to be somewhat delirious. She is improved from what she was earlier. Her mother is at the bedside. Based on her mother's description she did not have a generalized tonic-clonic seizure. She is on multiple different medications that have anticholinergic and neurotrophic effects. All Systems: The remainder of the systems were reviewed and are negative Review of Systems: The balance of the systems review is negative. Physical Examination - Vital Signs Vital Signs: Initial Vital Signs Temp Pulse Resp BP Pulse Ox 98.0 F 113 18 126/86 96 01/12/18 07:48 01/12/18 07:48 01/12/18 07:48 01/12/18 07:48 01/12/18 07:48 - Neurologic Detailed motor examination: other (Patient does have occasional myoclonic jerks. ) Mental Status Examination: Patient is awake she is attentive however she seems a slight bit somnolent perhaps delirious. She follows simple commands and answers simple questions without difficulty. No agnosia aphasia or apraxia are present. However she seems to be a bit somnolent. Cerebellar examination: no dysmetria, performs finger to nose and heel to núñez symmetrically without ataxia, no gait ataxia, no truncal ataxia, no difficulty with rapid alternating movements Results - Laboratory Findings CBC and BMP: 01/12/18 08:36 01/12/18 08:36 Abnormal lab findings: Abnormal lab results WBC 16.9 K/mcL (4.3-11.1) H 01/12/18 08:36 Neutrophils # 14.1 K/mcL (1.6-8.9) H 01/12/18 08:36 APTT 47.5 Seconds (26.0-36.0) H 01/12/18 08:36 ABG pO2 72 mmHg (85-104) L 01/12/18 12:09 BUN 27 mg/dL (6-20) H 01/12/18 08:36 Est GFR (Non-Af Amer) 58 (> 60) L 01/12/18 08:36 BUN/Creatinine Ratio 28 (6-26) H 01/12/18 08:36 Glucose 137 mg/dL (70-105) H 01/12/18 08:36 AST 40 Units/L (13-39) H 01/12/18 08:36 ALT 127 Units/L (7-52) H 01/12/18 08:36 Alkaline Phosphatase 171 Units/L (34-104) H 01/12/18 08:36 Salicylates < 2.5 mg/dL (15.0-30.0) L 01/12/18 08:36 Acetaminophen < 10 mcg/mL (10-20) L 01/12/18 08:36
--- NOTE | 2018-01-12 13:26 | Electrocardiograph Report ---
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
[2018-01-12 17:28] LABS: Creatine Kinase 17 Units/L (30-223)
[2018-01-12 17:38] LABS: Troponin I < 0.03 ng/mL (< 0.04)
[2018-01-13] MEDS: 0.9 % Sodium Chloride 1,000 ML IVC SCH (04:38)
[2018-01-13 06:48] LABS: Basophils % 0.2 %; Eosinophils # 0.2 K/mcL (0.0-0.6); Eosinophils % 1.9 %; Hematocrit 35.5 % (35.3-44.9); Immature Granulocytes % 1.5 % (0-4); Lymphocytes # 2.4 K/mcL (0.6-4.6); Lymphocytes % 20.7 %; Mean Corpuscular HGB Conc 31.5 g/dL (31.6-35.5); Mean Corpuscular Hemoglobin 29.5 pg (28.0-33.3); Mean Corpuscular Volume 93.4 fL (83.0-100.0); Mean Platelet Volume 9.8 fL (9.4-12.4); Monocytes # 0.7 K/mcL (0.0-1.3); Monocytes % 6.3 %; Neutrophils # 8.1 K/mcL (1.6-8.9); Platelet Count 290 K/mcL (140-400); Segmented Neutrophils % 69.4 %
[2018-01-13 06:51] LABS: Hemoglobin 11.2 g/dL (11.5-15.4)
[2018-01-13 07:16] LABS: BUN/Creatinine Ratio 24 (6-26); Blood Urea Nitrogen 20 mg/dL (6-20); Calcium 8.1 mg/dL (8.6-10.3); Carbon Dioxide 22 mEq/L (23-29); Chloride 111 mEq/L (98-107); Glucose 83 mg/dL (70-105); Magnesium 2.1 mg/dL (1.6-2.6); Osmolality,Calculated 290 (280-300); Phosphorous 3.2 mg/dL (2.7-4.5); Potassium 4.2 mEq/L (3.5-5.1); Sodium 139 mEq/L (136-145); eGFR For Non-African Americans > 60 (> 60)
[2018-01-13 07:18] VITALS: BP 127/84
--- NOTE | 2018-01-13 08:22 | Neurology Progress Note ---
Date of Encounter: 01/13/18 Time of Encounter: 08:20 Assessment and Plan (1) Altered mental status Current Visit: No Status: Resolved I suspect that this patient's altered mental status is due to some underlying metabolic process likely drug drug interactions. Similar scenario was presented during her last admission. Patient comes into the hospital with acute mental status changes and tremors his resolve spontaneously after being admitted. I find no evidence to suspect an underlying central nervous system primary process here. Recommend considering psychiatry evaluation to reassess medication regimen. I will reevaluate her at your request. Qualifiers: Altered mental status type: unspecified Qualified Code(s): R41.82 - Altered mental status, unspecified Subjective Interval history: Chart was reviewed, patient was seen and examined. She had an uneventful night. She maintains a slight tremulousness particularly of the left upper extremity with intention. However she does not appear parkinsonian and she is alert and oriented follows commands and answers questions appropriately. CPK level was not elevated. WBCs have declined overnight. Objective - Constitutional Vitals: Temp Pulse Resp BP Pulse Ox 97.9 F 84 18 127/84 100 01/13/18 07:12 01/13/18 07:12 01/13/18 07:12 01/13/18 07:12 01/13/18 07:12 - Neurological Exam Sensorimotor examination: Present: intact Motor Examination: Present: other (Patient does have occasional myoclonic jerks. ) Motor examination - right side: 5/5: deltoids, biceps, triceps, artists' model, hip flexors, tibialis Anterior, quadriceps, toe extension (EHL), plantarflexion Motor examination - left side: 5/5: deltoids, biceps, triceps, wrist flexion, wrist extension, hip flexors, artists' model, quadriceps, tibialis Anterior, toe extension (EHL), plantarflexion Sensation intact: Present: intact Reflex and gait examination: other (No clonus or Babinski present.) Mental Status Examination: Present: awake, alert, oriented to person, oriented to place, oriented to time, follows commands appropriately, answers questions appropriately Cranial nerve examination: Present: PERRL, EOMI, visual barakat intact, sensory to face intact, no facial asymmetry is present Cerebellar examination: Present: no dysmetria, performs finger to nose and heel to núñez symmetrically without ataxia, no gait ataxia, no truncal ataxia, no difficulty with rapid alternating movements Results - Laboratory Findings CBC and BMP: 01/13/18 06:01 01/13/18 06:01 Abnormal lab findings: Abnormal lab results WBC 11.7 K/mcL (4.3-11.1) H 01/13/18 06:01 RBC 3.80 M/mcL (3.82-4.97) L 01/13/18 06:01 Hgb 11.2 g/dL (11.5-15.4) L D 01/13/18 06:01 MCHC 31.5 g/dL (31.6-35.5) L 01/13/18 06:01 APTT 47.5 Seconds (26.0-36.0) H 01/12/18 08:36 ABG pO2 72 mmHg (85-104) L 01/12/18 12:09 Chloride 111 mEq/L (98-107) H 01/13/18 06:01 Carbon Dioxide 22 mEq/L (23-29) L 01/13/18 06:01 POC Glucose 131 mg/dL (70-99) H 01/12/18 08:19 Calcium 8.1 mg/dL (8.6-10.3) L 01/13/18 06:01 AST 40 Units/L (13-39) H 01/12/18 08:36 ALT 127 Units/L (7-52) H 01/12/18 08:36 Alkaline Phosphatase 171 Units/L (34-104) H 01/12/18 08:36 Creatine Kinase 17 Units/L (30-223) L 01/12/18 17:00 Salicylates < 2.5 mg/dL (15.0-30.0) L 01/12/18 08:36 Acetaminophen < 10 mcg/mL (10-20) L 01/12/18 08:36 Consult Discharge Plan - Plan Referrals: Iman Monae, CANCELING AND CUTTING CONTROL CLERK [Partnered Physician] -
--- NOTE | 2018-01-13 08:52 | Discharge Summary ---
- NOTES TO OUTPATIENT PROVIDER Notes to Outpatient Provider: We are going to hold your meds that have anticholinergic properties/ can cause a change in mental status. These meds are baclofen, ropirinole, chlopromazine, hydroxyzine and doxepin.Follow up with your primary care to discontinue/ resume these medications at lower doses. Follow up within 3 days Orders not resulted at time of discharge: Pending orders 01/12/18 11:08 Culture,Blood [BC] Routine Date of Encounter: 01/13/18 Time of Encounter: 08:50 - Discharge Diagnosis (1) Acute encephalopathy Priority: Primary Status: Acute Assessment and Plan: 7 year old female with pmh of diastolic CHF, interstitial lung disease on steroids, bipola disorder, restless leg syndrome and on multiple medications including anticholinergics amd agents such as paxil, doxepin and chlopromazine presenting with acute confusion and jerky movements of the upper extremities of 1 day duration. History was provided by patient's mother as patient is still lethargic and confused. She noted that she gave patient her meds last night, and patient was fine throughout the day and went to bed and was fine. She woke up to patient having jerky movements of her upper extremities this am and staring into space. She was able to rouse her, but says she was confused and wasn't able to answer any questions. EMS brought her in for the confusion. In the ER, she has since had a marked improvement in her mental status, although she is not able to recall the events from this am. She does complain of a dry mouth. She was given IV fluids and a CT head was done which came back normal Pt was assessed with acute encephalopathy likely toxic vs seizures. She was noted to have jerky movements of her upper extremities and confusion. She is however on multiple medications with anticholinergic side effects. All anticholinergics/ muscle relaxants/ SSRIs such as chlorpromaxine, ropirinole, paroxetine, nabumetone and baclofen were held. She was started on IV fluids and supportive care. She was seen by neurology who determined her encephalopathy was likely from a medication side effect and did not warrant any further neuro testing. By the next day, she was back to her baseline. Her chlorpromazine, ropirinole and baclofen were discontinued on discharge and she was counseled to follow up with her PCP regarding safely resuming these meds/ resuming them at lower doses (2) Diastolic CHF Priority: Secondary Status: Acute Qualifiers: Heart failure chronicity: chronic Qualified Code(s): I50.32 - Chronic diastolic (congestive) heart failure (3) Leukocytosis Priority: Secondary Status: Acute Qualifiers: Leukocytosis type: unspecified Qualified Code(s): D72.829 - Elevated white blood cell count, unspecified (4) NSIP (nonspecific interstitial pneumonia) Priority: Secondary Status: Acute (5) DVT prophylaxis Priority: Secondary Status: Acute Hospital course: Ms. Montoya is a 57 year old female - Time Spent with Patient Total time spent providing and/or coordinating discharge services: - Discharge Medications Home Medications: Aspirin [Lo-Dose Aspirin EC] 81 mg PO DAILY 12/24/17 [History] Diltiazem SR (12hr) [Cardizem SR] 60 mg PO QAM 12/24/17 [History] Nabumetone [Relafen] 500 mg PO TID 12/24/17 [History] Omeprazole [PriLOSEC] 40 mg PO DAILY 12/24/17 [History] PARoxetine HCl [Paroxetine HCl] 60 mg PO DAILY 12/24/17 [History] Propranolol [Inderal] 10 mg PO BID 12/24/17 [History] Azithromycin [Zithromax] 250 mg PO DAILY #3 tablet 01/07/18 [Rx] Ipratropium/Albuterol Neb [Duoneb] 3 ml IH [id number] PRN #30 inhsol 01/07/18 [Rx] predniSONE [PredniSONE] 50 mg PO DAILY 14 Days #35 tablet 01/07/18 [Rx] Allergies/Adverse Reactions: 3 Allergy/AdvReac Type Severity Reaction Status Date / Time metoclopramide [From Reglan] Allergy Mild Itching Verified 11/03/17 14:57 tramadol Allergy Mild Itching Verified 11/03/17 14:57 amitriptyline Allergy Itching Verified 11/03/17 14:57 codeine Allergy Hives Verified 11/03/17 14:57 Sulfa (Sulfonamide Allergy See Verified 11/03/17 14:57 Antibiotics) Comments sulfamethoxazole Allergy See Verified 11/03/17 14:57 [From Bactrim] Comments trimethoprim [From Bactrim] Allergy See Verified 11/03/17 14:57 Comments lorazepam [From Ativan] AdvReac Mild Anxiety Verified 11/03/17 14:57 benztropine [From Cogentin] AdvReac See Verified 11/03/17 14:57 Comments ciprofloxacin [From Cipro] AdvReac See Verified 11/03/17 14:57 Comments onabotulinumtoxinA AdvReac See Verified 11/03/17 14:57 [From Botox] Comments sertraline [From Zoloft] AdvReac Headache Verified 11/03/17 14:57 sumatriptan [From Imitrex] AdvReac Agitated Verified 11/03/17 14:57 topiramate [From Topamax] AdvReac See Verified 11/03/17 14:57 Comments Date of admission: 01/12/18 10:03 Primary care physician: PCP NONE Consults: 01/12/18 10:42 Consult to Neurology [CONS] Routine Consulting Provider: [facility] Reason for Consult: acute encephalopathy secondary to seizures vs polypharmacy Call Completed: Yes - Constitutional Vitals: Temp Pulse Resp BP Pulse Ox 97.9 F 84 18 127/84 100 01/13/18 07:12 01/13/18 07:12 01/13/18 07:12 01/13/18 07:12 01/13/18 07:12 General appearance: Present: obese Exam: NAD - Head Head exam: Present: atraumatic, normocephalic - Eye Eye exam: Present: PERRL, conjuntiva pink, sclera anicteric Pupils: Present: PERRL - Neck Neck exam general surgery: Present: supple, trachea midline. Absent: lymphadenopathy - Respiratory Respiratory exam: Present: CTAB. Absent: accessory muscle use, rales, rhonchi, wheezes - Cardiovascular Cardiovascular exam: Present: RRR, +S1, +S2. Absent: diastolic murmur, gallop, rubs, systolic murmur - GI/Abdominal GI/Abdominal exam: Present: normal bowel sounds, soft, no peritoneal signs. Absent: distended, tenderness - Extremities Exam Extremities exam: Present: warm, radial pulses palpable and symmetrical. Absent : calf tenderness, cyanotic, pedal edema - Neurological Exam Neurological exam: Present: CN II-XII intact, oriented X3, no focal deficits. Absent: pronater drift, facial droop, speech deficit - Skin Skin exam: Present: dry, intact - Patient Status Disposition: Home, Self-Care Condition: Fair - Discharge Instructions Follow Up With: Iman Monae CNP [Partnered Physician] - 01/16/18 9:30 am
[2018-01-13] MEDS ORDERED: Aspirin Enteric Coated 81 MG Tablet PO SCH (09:00)
[2018-01-13] MEDS ORDERED: Diltiazem SR (12hr) 60 MG CAPSULE PO SCH (09:00)
--- NOTE | 2018-01-13 10:41 | Physician Discharge Referral ---
Home Health/Hosp Referral Info Transfer to: Home Health - Diagnosis (1) Acute encephalopathy Priority: Primary Status: Acute (2) Diastolic CHF Status: Acute (3) Leukocytosis Status: Acute (4) NSIP (nonspecific interstitial pneumonia) Status: Acute (5) DVT prophylaxis Status: Acute - Respiratory Orders Smoking Cessation: Smoking cessation has been advised. For more information, call the [place] Tobacco Quit Line at 4-316-PCPS-NOW. - Services Needed Following services are medically necessary services: Nursing, Home Health Aide, Physical Therapy - Transfer Medications Home Medications: Aspirin [Lo-Dose Aspirin EC] 81 mg PO DAILY 12/24/17 [History] Diltiazem SR (12hr) [Cardizem SR] 60 mg PO QAM 12/24/17 [History] Nabumetone [Relafen] 500 mg PO TID 12/24/17 [History] Omeprazole [PriLOSEC] 40 mg PO DAILY 12/24/17 [History] PARoxetine HCl [Paroxetine HCl] 60 mg PO DAILY 12/24/17 [History] Propranolol [Inderal] 10 mg PO BID 12/24/17 [History] Azithromycin [Zithromax] 250 mg PO DAILY #3 tablet 01/07/18 [Rx] Ipratropium/Albuterol Neb [Duoneb] 3 ml IH [id number] PRN #30 inhsol 01/07/18 [Rx] predniSONE [PredniSONE] 50 mg PO DAILY 14 Days #35 tablet 01/07/18 [Rx] Allergies/Adverse Reactions: 3 Allergy/AdvReac Type Severity Reaction Status Date / Time metoclopramide [From Reglan] Allergy Mild Itching Verified 11/03/17 14:57 tramadol Allergy Mild Itching Verified 11/03/17 14:57 amitriptyline Allergy Itching Verified 11/03/17 14:57 codeine Allergy Hives Verified 11/03/17 14:57 Sulfa (Sulfonamide Allergy See Verified 11/03/17 14:57 Antibiotics) Comments sulfamethoxazole Allergy See Verified 11/03/17 14:57 [From Bactrim] Comments trimethoprim [From Bactrim] Allergy See Verified 11/03/17 14:57 Comments lorazepam [From Ativan] AdvReac Mild Anxiety Verified 11/03/17 14:57 benztropine [From Cogentin] AdvReac See Verified 11/03/17 14:57 Comments ciprofloxacin [From Cipro] AdvReac See Verified 11/03/17 14:57 Comments onabotulinumtoxinA AdvReac See Verified 11/03/17 14:57 [From Botox] Comments sertraline [From Zoloft] AdvReac Headache Verified 11/03/17 14:57 sumatriptan [From Imitrex] AdvReac Agitated Verified 11/03/17 14:57 topiramate [From Topamax] AdvReac See Verified 11/03/17 14:57 Comments Certification: Further, I certify that my clinical findings support that this patient is homebound (i.e. absences from home require considerable and taxing effort and are for medical reasons or bahai services or infrequently or short duration when for other reasons) because: Homebound Reason: Patient requires assistance of a person or device to safely leave home Attestation: My signature below is to certify that this patient is under my care and that I, or nurse practitioner, or a physician's seismic survey assistant working with me, has a face-to -face encounter with this patient.
== END 2018-01-13 11:13 | disposition home or self-care (01) ==
LOC: EMEROOARM 07:47 → 3BNU 07:47
PROVIDERS: ADMIT Student in an Organized Health Care Education/Training Program; ATTEND Student in an Organized Health Care Education/Training Program

== ENCOUNTER 2018-03-13 08:20 | Observation (INO) ==
[2018-03-13] MEDS ORDERED: Aspirin 81 MG TAB.CHEW PO ONE (08:31)
--- NOTE | 2018-03-13 08:37 | Emergency Department Note ---
Disposition Clinical Impression: Syncope and collapse Chest pain Qualifiers: Chest pain type: unspecified Qualified Code(s): R07.9 - Chest pain, unspecified Disposition: Still a Patient General Adult HPI - General Chief complaint: ED Chest Pain Stated complaint: CP Time Seen by Provider: 03/13/18 08:25 Nursing Notes Reviewed: Yes Vital Signs Reviewed: Yes - History of Present Illness HPI Narrative: ED ATTESTATION NOTE: I examined this patient and my medical decision-making was reviewed with the Resident Physician/BURIAL NEEDS SALESPERSON/PA/Student. I have personally performed a face to face evaluation on this patient & I agree with the documented findings, disposition and treatment plan as described except to the extent set forth below. Patient was seen with emergency medicine resident Katie Harrison please see copy of her note for details of this encounter Briefly: 57-year-old female history of syncope in the past presents with syncope yesterday fell down while she was using the sweeper in her home. She is presents for back. She has has anterior chest pain going through a back. Patient is not hypertensive we feel. Dissection is very low on the differential. EKG shows a sinus rhythm tachycardic at 118 bpm. No acute ischemic changes. We are concerned of the patient's sudden loss of consciousness with no premonitory symptoms. Patient will undergo ED cardiac workup and will be admitted. Admission disposition pending. Pain Scale: 8 - Related Data Home Medications Medication Instructions Recorded Confirmed Diltiazem SR (12hr) [Cardizem SR] 60 mg PO QAM 12/24/17 01/09/18 Nabumetone [Relafen] 500 mg PO TID 12/24/17 01/09/18 Omeprazole [PriLOSEC] 40 mg PO DAILY 12/24/17 01/09/18 PARoxetine HCl [Paroxetine HCl] 60 mg PO DAILY 12/24/17 01/12/18 Propranolol [Inderal] 10 mg PO BID 12/24/17 01/09/18 Previous Rx's Medication Instructions Recorded Ondansetron [Zofran] 8 mg PO Q8HR #12 tablet 03/02/18 Allergies Allergy/AdvReac Type Severity Reaction Status Date / Time metoclopramide [From Reglan] Allergy Mild Itching Verified 11/03/17 14:57 tramadol Allergy Mild Itching Verified 11/03/17 14:57 amitriptyline Allergy Itching Verified 11/03/17 14:57 codeine Allergy Hives Verified 11/03/17 14:57 Sulfa (Sulfonamide Allergy See Verified 11/03/17 14:57 Antibiotics) Comments sulfamethoxazole Allergy See Verified 11/03/17 14:57 [From Bactrim] Comments trimethoprim [From Bactrim] Allergy See Verified 11/03/17 14:57 Comments lorazepam [From Ativan] AdvReac Mild Anxiety Verified 11/03/17 14:57 benztropine [From Cogentin] AdvReac See Verified 11/03/17 14:57 Comments ciprofloxacin [From Cipro] AdvReac See Verified 11/03/17 14:57 Comments onabotulinumtoxinA AdvReac See Verified 11/03/17 14:57 [From Botox] Comments sertraline [From Zoloft] AdvReac Headache Verified 11/03/17 14:57 sumatriptan [From Imitrex] AdvReac Agitated Verified 11/03/17 14:57 topiramate [From Topamax] AdvReac See Verified 11/03/17 14:57 Comments Past Medical History - Past Medical History Medical history: Reports: no medical history Surgical history: Reports: , cholecystectomy, herniorrhaphy, hysterectomy Psychiatric history: Reports: anxiety, bipolar, depression 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 FORENSIC history: Reports: no BALLISTICS EXPERT FORENSIC history, other - Social History Smoking Status: Never smoker Smokeless Tobacco Status: No Alcohol use: Reports: none Drug use: Reports: none Course Vital Signs Temperature 98.3 F 03/13/18 08:22 Pulse Rate 127 03/13/18 08:22 Respiratory Rate 20 03/13/18 08:22 Blood Pressure 86/56 03/13/18 08:22 O2 Sat by Pulse Oximetry 95 03/13/18 08:22 Temperature 98.3 F 03/13/18 08:22 Pulse Rate 127 03/13/18 08:22 Respiratory Rate 20 03/13/18 08:22 Blood Pressure 86/56 03/13/18 08:22 O2 Sat by Pulse Oximetry 95 03/13/18 08:22 Oxygen Delivery Oxygen Delivery Room Air
[2018-03-13] MEDS: Nitroglycerin 0.4 MG TAB.SUBL SL ONE ×2 (08:53→12:55)
[2018-03-13 09:03] LABS: INR 1.1; Prothrombin Time 12.8 Seconds (9.4-12.1)
[2018-03-13 09:03] LABS: Hematocrit 38.2 % (35.3-44.9); Hemoglobin 12.4 g/dL (11.5-15.4); Mean Corpuscular HGB Conc 32.5 g/dL (31.6-35.5); Mean Corpuscular Hemoglobin 29.8 pg (28.0-33.3); Mean Corpuscular Volume 91.8 fL (83.0-100.0); Mean Platelet Volume 9.5 fL (9.4-12.4); Monocytes # 1.4 K/mcL (0.0-1.3); Platelet Count 330 K/mcL (140-400); Red Blood Count 4.16 M/mcL (3.82-4.97); Red Cell Distribution Width 14.1 % (11.5-14.5)
--- NOTE | 2018-03-13 09:03 | Emergency Department Note ---
Disposition Clinical Impression: Syncope and collapse Chest pain Qualifiers: Chest pain type: unspecified Qualified Code(s): R07.9 - Chest pain, unspecified Leukocytosis Qualifiers: Leukocytosis type: unspecified Qualified Code(s): D72.829 - Elevated white blood cell count, unspecified Disposition: Admitted As Inpatient Condition: Fair Referrals: [facility] [Primary Care Provider] - Forms: ED Satisfaction Letter General Adult HPI - General Chief complaint: ED Chest Pain Stated complaint: CP Time Seen by Provider: 03/13/18 08:25 Source: patient Mode of arrival: ambulatory Limitations: no limitations Nursing Notes Reviewed: Yes Vital Signs Reviewed: Yes - History of Present Illness HPI Narrative: 57-year-old female with complex past medical history including chronic low blood pressure presenting to the emergency department with chief complaint of chest pain and syncope. Patient states yesterday she was sweeping her floor when she passed out. The next thing the patient remembers is being woken up by her parents. Patient denies being on any anticoagulation. Patient states she has had syncope and collapse previously. She states today she went to visit her boyfriend and she started having substernal chest pain while resting. She discloses nausea and diaphoresis with the symptoms as well. Patient denies taking any medications. Came here for further evaluation. Patient states she has had previous cardiac workup approximately one year ago. At this time patient is still having substernal chest pressure. Pain Scale: 8 - Related Data Home Medications Medication Instructions Recorded Confirmed Diltiazem SR (12hr) [Cardizem SR] 60 mg PO QAM 12/24/17 01/09/18 Nabumetone [Relafen] 500 mg PO TID 12/24/17 01/09/18 Omeprazole [PriLOSEC] 40 mg PO DAILY 12/24/17 01/09/18 PARoxetine HCl [Paroxetine HCl] 60 mg PO DAILY 12/24/17 01/12/18 Propranolol [Inderal] 10 mg PO BID 12/24/17 01/09/18 Previous Rx's Medication Instructions Recorded Ondansetron [Zofran] 8 mg PO Q8HR #12 tablet 03/02/18 Allergies Allergy/AdvReac Type Severity Reaction Status Date / Time metoclopramide [From Reglan] Allergy Mild Itching Verified 11/03/17 14:57 tramadol Allergy Mild Itching Verified 11/03/17 14:57 amitriptyline Allergy Itching Verified 11/03/17 14:57 codeine Allergy Hives Verified 11/03/17 14:57 Sulfa (Sulfonamide Allergy See Verified 11/03/17 14:57 Antibiotics) Comments sulfamethoxazole Allergy See Verified 11/03/17 14:57 [From Bactrim] Comments trimethoprim [From Bactrim] Allergy See Verified 11/03/17 14:57 Comments lorazepam [From Ativan] AdvReac Mild Anxiety Verified 11/03/17 14:57 benztropine [From Cogentin] AdvReac See Verified 11/03/17 14:57 Comments ciprofloxacin [From Cipro] AdvReac See Verified 11/03/17 14:57 Comments onabotulinumtoxinA AdvReac See Verified 11/03/17 14:57 [From Botox] Comments sertraline [From Zoloft] AdvReac Headache Verified 11/03/17 14:57 sumatriptan [From Imitrex] AdvReac Agitated Verified 11/03/17 14:57 topiramate [From Topamax] AdvReac See Verified 11/03/17 14:57 Comments All systems ED: reviewed and negative except as stated. Constitutional: Denies: fever, chills Eyes: Reports: as per HPI ENT ED: Reports: as per HPI Cardiovascular: Reports: chest pain. Denies: palpitations, dyspnea on exertion Respiratory: Denies: cough, dyspnea, wheezes Gastrointestinal: Reports: nausea. Denies: abdominal pain Genitourinary: Reports: as per HPI Musculoskeletal: Reports: as per HPI Integumentary: Reports: other (Ecchymosis) Neurological: Denies: weakness, numbness, paresthesias Psychiatric: Reports: as per HPI Endocrine: Reports: as per HPI Hematological/Lymphatic: Reports: as per HPI Allergic/Immunologic: Reports: as per HPI Past Medical History - Past Medical History Attestation: Yes The following information was validated with the patient. Medical history: Reports: non-contributory, CHF, COPD Surgical history: Reports: , cholecystectomy, herniorrhaphy, hysterectomy Psychiatric history: Reports: anxiety, bipolar, depression COMMERCIAL COUNSEL history: Reports: no COMMERCIAL COUNSEL history, other - Social History Smoking Status: Former smoker Smokeless Tobacco Status: No Alcohol use: Reports: none Drug use: Reports: none Physical Exam - General Limitations: no limitations General appearance: alert, in no apparent distress - Head Head exam: atraumatic, normocephalic, normal inspection - Eye Eye exam: Present: normal appearance, PERRL, EOMI. Absent: scleral icterus, conjunctival injection - ENT ENT exam: mucous membranes dry - Neck Neck exam: Present: normal inspection, full ROM. Absent: tenderness, meningismus - Chest Chest inspection: Present: normal inspection, symmetric chest wall rise. Absent: tenderness, rash - Respiratory Respiratory exam: Present: normal lung sounds bilaterally. Absent: respiratory distress, wheezes - Cardiovascular Cardiovascular exam: Present: normal rhythm, tachycardia, normal heart sounds - Abdominal Exam Abdominal exam: Present: soft, Non-Tender. Absent: distention, guarding, rebound - Extremities Exam Extremities exam: Present: normal inspection, full ROM - Back Exam Back exam: Present: other (Ecchymosis noted on the left side of the back. No midline tenderness.) - Neurological Exam Neurological exam: Present: alert, oriented X3 - Psychiatric Psychiatric exam: Present: normal affect, normal mood - Skin Skin exam: Present: warm Course Course Narrative: 57-year-old female presenting for syncope and chest pain. Patient had syncopal episode yesterday. Physical exam shows ecchymosis on the back. No midline spinal tenderness. Patient states today she started having chest pain at rest. Previous records were reviewed and no catheterization or stress test completed but I can see here. Patient has had echo and carotid ultrasounds completed. At this time patient still having chest pain. She is alert and oriented 3. Blood pressure 90 systolic therefore unable to provide nitroglycerin. We will provide her with full dose aspirin. We will obtain chest pain workup along with a lipase level as patient states she has had pancreatitis before this feels similar. Disposition most likely admission due to patient's syncope and collapse. Patient agrees with this plan. - Reevaluation(s) Reevaluation #1: Patient's laboratory analysis shows leukocytosis at 34.2. Patient has never had white blood cell count is high. Patient denies any weight loss, fevers or other symptoms at home. Patient also had elevated creatinine. We will provide her with a 500 mL fluid bolus. Due to patient's syncope and chest pain we will plan to admit her for further evaluation. Patient remains alert and oriented 3. Systolic blood pressure in 80s to 90s that patient states this is baseline. She is neurovascularly intact in all 4 extremities. I spoke with the hospitalist agricultural education teacher Dr. Rodríguez who agrees to accept the patient at this time. Vital Signs Temperature 98.3 F 03/13/18 08:22 Pulse Rate 127 03/13/18 08:22 Respiratory Rate 20 03/13/18 08:22 Blood Pressure 86/56 03/13/18 08:22 O2 Sat by Pulse Oximetry 95 03/13/18 08:22 Temperature 98.3 F 03/13/18 08:41 Pulse Rate 113 03/13/18 10:00 Respiratory Rate 18 03/13/18 10:00 Blood Pressure 94/60 03/13/18 10:00 O2 Sat by Pulse Oximetry 96 03/13/18 10:00 Oxygen Delivery Oxygen Delivery Room Air Medical Decision Making - Lab Data Result diagrams: 03/13/18 08:41 03/13/18 08:41 Lab Results 03/13/18 03/13/18 03/13/18 Range/Units 08:31 08:41 08:41 WBC 34.2 H* (4.3-11.1) K/mcL RBC 4.16 (3.82-4.97) M/mcL Hgb 12.4 (11.5-15.4) g/dL Hct 38.2 (35.3-44.9) % MCV 91.8 (83.0-100.0) fL MCH 29.8 (28.0-33.3) pg MCHC 32.5 (31.6-35.5) g/dL RDW 14.1 (11.5-14.5) % Plt Count 330 (140-400) K/mcL MPV 9.5 (9.4-12.4) fL Seg Neutrophils % 82.0 % Band Neutrophils % 12.0 H (0-4) % Lymphocytes % 2.0 % Monocytes % 4.0 % Neutrophils # 32.2 H (1.6-8.9) K/mcL Lymphocytes # 0.7 (0.6-4.6) K/mcL Monocytes # 1.4 H (0.0-1.3) K/mcL Platelet Estimate Normal (Normal) PT 12.8 H (9.4-12.1) Seconds INR 1.1 Sodium 135 L (136-145) mEq/L Potassium 3.8 (3.5-5.1) mEq/L Chloride 102 (98-107) mEq/L Carbon Dioxide 20 L (23-29) mEq/L BUN 26 H (6-20) mg/dL Creatinine 1.39 H (0.60-1.20) mg/dL Est GFR ( Amer) 47 L (> 60) Est GFR (Non-Af Amer) 39 L (> 60) BUN/Creatinine Ratio 19 (6-26) Glucose 167 H (70-105) mg/dL Calculated Osmolality 289 (280-300) Calcium 10.2 (8.6-10.3) mg/dL Troponin I < 0.03 (< 0.04) ng/mL Lipase 3 L (11-82) Units/L - EKG Data EKG #1 EKG attestation: Yes I reviewed and interpreted this EKG. EKG results narrative: Sinus tachycardia. 118 beats for minute. IA interval 127, QRS to 34, QTC 618. Right bundle branch block. No sign of acute ST segment elevation or ischemia. Compared to previous EKG completed on 01/19/2018 no significant changes noted
[2018-03-13 09:15] LABS: BUN/Creatinine Ratio 19 (6-26); Blood Urea Nitrogen 26 mg/dL (6-20); Calcium 10.2 mg/dL (8.6-10.3); Carbon Dioxide 20 mEq/L (23-29); Chloride 102 mEq/L (98-107); Glucose 167 mg/dL (70-105); Lipase 3 Units/L (11-82); Osmolality,Calculated 289 (280-300); Potassium 3.8 mEq/L (3.5-5.1); Sodium 135 mEq/L (136-145); eGFR For Non-African Americans 39 (> 60)
[2018-03-13 09:30] LABS: Lymphocytes # 0.7 K/mcL (0.6-4.6); Neutrophils # 32.2 K/mcL (1.6-8.9); Platelet Estimate Normal (Normal)
[2018-03-13 09:41] LABS: Troponin I < 0.03 ng/mL (< 0.04)
[2018-03-13] MEDS ORDERED: 0.9 % Sodium Chloride 500 ML IVC ONE (09:48)
[2018-03-13] MEDS ORDERED: Naloxone 0.4 MG/ML INJ IVP PRN ×2 (10:04→20:36)
[2018-03-13] MEDS ORDERED: Acetaminophen 325 MG TABLET PO PRN (10:04)
[2018-03-13] MEDS ORDERED: 0.9 % Sodium Chloride 1,000 ML IVC SCH (10:15)
--- NOTE | 2018-03-13 11:30 | Internal Med History&Physical ---
Date of Encounter: 03/13/18 Time of Encounter: 11:27 Internal Medicine - H&P: HPI Chief complaint: Chest Pain Admitted From: Home Plans for Post Hospital Care: Home History of present illness: Ms. Montoya is a 57 year old female with medical history of depression, bipolar disorder, hypertension, diastolic CHF, multiple admissions for syncope and hypertension who presented with a history of syncope. She reports that she was found down by her parents yesterday in her apartment, she does not remember when she fell. She did not present to the ER panel came in to this facility to visit her boyfriend and on however we will to the nurses station she felt her" and she started feeling chest pain. She reports chest pain is precordial radiates to the back and spine without. She has no associated diaphoresis, shortness of breath, dizziness or nausea. She has no pedal edema, she is not a known hypertensive she used to smoke but quit several years ago. She denies illicit drug use, she denies any abdominal symptoms, she has no changes in genitourinary or bowel habits. Family history is unremarkable During evaluation in the ER the patient is alert and oriented 3 and able to give a history not in any form of distress. Workup in the ER showed leukocytosis 01045 and mild dehydration, chemistry, troponin is negative EKG shows sinus tachycardia and right atrial enlargement. She also had one episode of hypotension in the ER which improved with IV fluid hydration. She will be placed on suspicion for syncope and chest pain workup as well as leukocytosis with mild dehydration. She is full code. Past Med Surg Social Fam HX - Past Medical History Medical history: non-contributory, CHF, COPD Additional medical history: pt denies any history Psychiatric history: anxiety, bipolar, depression - Past Surgical History Surgical History: , cholecystectomy, herniorrhaphy, hysterectomy Additional surgical history: Lung BX- right. - Social History Smoking Status: Former smoker Smokeless Tobacco Status: No Alcohol use: none Drug use: none - Family History Father Living Status: Still Living Hx Family Cardiac Disorders: Yes (heart disease) Mother Adopted: No Family Member Ethnicity: Non- Living Status: Still Living Hx Family Cardiac Disorders: No Hx Family Respiratory Disorders: Yes (short of breath) Hx Family Cancer: No Hx Family GI Disorders: No Hx Family Endocrine Disorder: No Hx Family Neuromuscular Disorders: No Hx Family Neurologic Disorders: No Hx Family HEENT Disorders: No Hx Family Autoimmune Disorders: Yes (hyperthyroid) Grandfather Living Status: Hx Family Cardiac Disorders: Yes Internal Medicine - H&P: Meds Aspirin [Lo-Dose Aspirin EC] 81 mg PO DAILY 03/13/18 [History] Chlorpromazine HCl 300 mg PO HS 03/13/18 [History] Doxepin HCl 150 mg PO HS 03/13/18 [History] Etodolac 400 mg PO BID 03/13/18 [History] PARoxetine HCl [Paroxetine HCl] 60 mg PO QAM 03/13/18 [History] Promethazine HCl 12.5 mg PO DAILY PRN 03/13/18 [History] Ropinirole HCl [Requip] 1 mg PO HS 03/13/18 [History] hydrOXYzine HCl [Hydroxyzine HCl] 25 mg PO BID PRN 03/13/18 [History] Allergy/AdvReac Type Severity Reaction Status Date / Time sulfamethoxazole Allergy Intermediate See Verified 03/13/18 11:03 [From Bactrim] Comments metoclopramide [From Reglan] Allergy Mild Itching Verified 03/13/18 11:03 tramadol Allergy Mild Itching Verified 03/13/18 11:03 amitriptyline Allergy Itching Verified 03/13/18 11:03 codeine Allergy Hives Verified 03/13/18 11:03 Sulfa (Sulfonamide Allergy See Verified 03/13/18 11:03 Antibiotics) Comments trimethoprim [From Bactrim] Allergy See Verified 03/13/18 11:03 Comments lorazepam [From Ativan] AdvReac Mild Anxiety Verified 03/13/18 11:03 benztropine [From Cogentin] AdvReac See Verified 03/13/18 11:03 Comments ciprofloxacin [From Cipro] AdvReac See Verified 03/13/18 11:03 Comments onabotulinumtoxinA AdvReac See Verified 03/13/18 11:03 [From Botox] Comments sertraline [From Zoloft] AdvReac Headache Verified 03/13/18 11:03 sumatriptan [From Imitrex] AdvReac Agitated Verified 03/13/18 11:03 topiramate [From Topamax] AdvReac See Verified 03/13/18 11:03 Comments All Systems PM: A 10-system review of systems was performed and is negative for pertinent findings except as documented above in the HPI. - Constitutional Constitutional: as per HPI - EENT Eyes: as per HPI Ears: as per HPI Nose, mouth and throat: as per HPI - Cardiovascular Cardiovascular ROS IM: as per HPI - Respiratory Respiratory: as per HPI - Gastrointestinal Gastrointestinal: as per HPI - Genitourinary Genitourinary: as per HPI - Musculoskeletal Musculoskeletal ROS IM: as per HPI - Integumentary Integumentary IM: as per HPI - Neurological Neurological ROS: as per HPI - Hematologic/Lymphatic Hematologic/Lymphatic: as per HPI - Constitutional Vitals: Temp Pulse Resp BP Pulse Ox 98.3 F 113 18 112/79 96 03/13/18 08:41 03/13/18 10:00 03/13/18 10:00 03/13/18 11:13 03/13/18 10:00 General appearance: Present: A&O X 3, pleasant, no acute distress, obese Exam: see below - Head Head exam: Present: atraumatic, normocephalic - Eye Eye exam: Present: PERRL, conjuntiva pink, sclera anicteric Pupils: Present: PERRL - Neck Neck exam general surgery: Present: supple, trachea midline. Absent: lymphadenopathy - Respiratory Respiratory exam: Present: CTAB. Absent: accessory muscle use, rales, rhonchi, wheezes - Cardiovascular Cardiovascular exam: Present: RRR, +S1, +S2. Absent: diastolic murmur, gallop, rubs, systolic murmur - GI/Abdominal GI/Abdominal exam: Present: normal bowel sounds, soft, no peritoneal signs. Absent: distended, tenderness - Extremities Exam Extremities exam: Present: warm, radial pulses palpable and symmetrical. Absent: calf tenderness, cyanotic, pedal edema - Back Exam Additional comments: L side back bruises on the flank region and on the subscapular region, mild tenderness - Neurological Exam Neurological exam: Present: alert, CN II-XII intact, oriented X3, no focal deficits. Absent: pronater drift, facial droop, speech deficit - Skin Skin exam: Present: dry, intact Internal Med - H&P Results - Labs CBC & Chem 7: 03/13/18 08:41 03/13/18 08:41 Labs: Short CBC 03/13/18 Range/Units 08:41 WBC 34.2 H* (4.3-11.1) K/mcL Hgb 12.4 (11.5-15.4) g/dL Hct 38.2 (35.3-44.9) % Plt Count 330 (140-400) K/mcL Neutrophils # 32.2 H (1.6-8.9) K/mcL BMP 03/13/18 08:41 Sodium 135 L Potassium 3.8 Chloride 102 Carbon Dioxide 20 L BUN 26 H Creatinine 1.39 H Glucose 167 H Calcium 10.2 Cardiac Enzymes 03/13/18 Range/Units 08:41 Troponin I < 0.03 (< 0.04) ng/mL - Impressions ITS Impressions Chest X-Ray 03/13/18 08:31 IMPRESSION: No acute parenchymal process seen within the chest. D/ / Sim Rai MD / Sim Rai MD Interpreting Provider: Sim Rai MD - Assessment and plan (1) History of syncope Current Visit: Yes Status: Acute Assessment and plan: Patient reported having had an episdoe of syncope for which she does not remember She has had multiple work ups for suyncope in the past 2-3 months, all negative Recent ECHO and carotid unremarkable Check orthostats PTOT eval Fall precautions (2) Bipolar disorder Current Visit: Yes Status: Chronic Assessment and plan: resume home meds Qualifiers: Active/Remission status: remission status unspecified Qualified Code(s): F31.9 - Bipolar disorder, unspecified (3) Chest pain Current Visit: Yes Status: Acute Assessment and plan: patient reports atypical chest pain described as chest pain that started this mrn, while on the floors in this facility visiting her boyfriend, radiating to the back Initial trop negative EKG shows sinus tachycardia ASA given in ER No active chest pain at this time ECHO recently done, noted Obtain stress test a.m Qualifiers: Chest pain type: unspecified Qualified Code(s): R07.9 - Chest pain, unspecified (4) Diastolic CHF Current Visit: Yes Status: Chronic Assessment and plan: euvolemic continue to monitor Qualifiers: Heart failure chronicity: chronic Qualified Code(s): I50.32 - Chronic di astolic (congestive) heart failure (5) KHALIF (obstructive sleep apnea) Current Visit: Yes Status: Chronic Assessment and plan: CPAP at bedtime (6) Tobacco use disorder Current Visit: Yes Status: Chronic Assessment and plan: encouraged cessation NRT prn (7) Leukocytosis Current Visit: Yes Status: Acute Assessment and plan: WBC of 34.2, likely result of stress reaction She has no fever, or focal source of infection Will monitor with hydration However, consider hematology eval if unimproved with IVF Qualifiers: Leukocytosis type: unspecified Qualified Code(s): D72.829 - Elevated white blood cell count, unspecified (8) Dehydration Current Visit: Yes Status: Acute Assessment and plan: IVF hydration Monitor resp status Renal function with slight increase in Cr, not meeting criteria for SOREN - Time Spent With Patient Total time spent is greater than 50% in coordination of care (as documented) at patient's floor/unit and/or counseling patient:
[2018-03-13] MEDS ORDERED: Nitroglycerin 0.4 MG TAB.SUBL SL ONE (12:48)
[2018-03-13] MEDS: Nitroglycerin 0.4 MG TAB.SUBL SL PRN ×2 (12:55→13:00)
[2018-03-13] MEDS ORDERED: *HR* Morphine 2 MG/ML SYRINGE IVP ONE (13:40)
[2018-03-13] MEDS ORDERED: Isovue-370 500 ML INFUS..BTL IV ONE (15:54)
[2018-03-13 16:11] LABS: Amphetamine Screen,Urine Negative ng/mL (Cutoff=1000); Barbiturate Screen,Urine Negative ng/mL (Cutoff=200); Benzodiazepines Screen,Urine Negative ng/mL (Cutoff=200); Cannabinoid Screen,Urine Negative ng/mL (Cutoff = 50); Cocaine Screen,Urine Negative ng/mL (Cutoff= 300); Opiate Screen,Urine Negative ng/mL (Cutoff=300); Phencyclidine Screen,Urine Negative ng/mL (Cutoff=25)
--- NOTE | 2018-03-13 16:44 | Electrocardiograph Report ---
[facility] [employer] [place] Test Date: 2018-03-13 Pat Name: Angela Montoya Department: EXAM18 Room: 2NE33 Gender: F Lan Support Specialist: : 1960 Requested By: Katie Harrison Order Number: [id number] Reading MD: Josep Del Toro Measurements Intervals [place] Rate: 118 P: 56 [place]: 127 QRS: 63 QRSD: 234 T: 52 QT: 441 QTc: 618 Interpretive Statements Sinus tachycardia Consider right atrial enlargement Right bundle branch block Probable left ventricular hypertrophy Prolonged QT interval Electronically Signed On 03-13-2018 16:43:12 EST by Josep Del Toro
[2018-03-13] MEDS ORDERED: traMADol 50 MG TABLET PO PRN (20:36)
[2018-03-13] MEDS: *HR* HYDROcodone/Acet 5/325 mg TABLET PO PRN (21:06)
[2018-03-13] MEDS: rOPINIRole 1 MG TABLET PO SCH (21:07)
[2018-03-13] MEDS: chlorproMAZINE 25 MG TABLET PO SCH (21:20)
[2018-03-14] MEDS: *HR* HYDROcodone/Acet 5/325 mg TABLET PO PRN ×3 (03:09→18:47)
[2018-03-14 03:26] LABS: Basophils % 0.1 %; Eosinophils % 0.2 %; Hematocrit 30.9 % (35.3-44.9); Immature Granulocytes % 0.5 % (0-4); Lymphocytes # 1.1 K/mcL (0.6-4.6); Lymphocytes % 5.6 %; Mean Corpuscular Hemoglobin 29.5 pg (28.0-33.3); Mean Platelet Volume 9.3 fL (9.4-12.4); Monocytes # 0.8 K/mcL (0.0-1.3); Monocytes % 4.5 %; Neutrophils # 16.7 K/mcL (1.6-8.9); Platelet Count 249 K/mcL (140-400); Red Blood Count 3.36 M/mcL (3.82-4.97); Red Cell Distribution Width 14.6 % (11.5-14.5); Segmented Neutrophils % 89.1 %
[2018-03-14 03:34] LABS: Hemoglobin 9.9 g/dL (11.5-15.4)
[2018-03-14 03:44] LABS: BUN/Creatinine Ratio 22 (6-26); Blood Urea Nitrogen 17 mg/dL (6-20); Calcium 7.9 mg/dL (8.6-10.3); Carbon Dioxide 21 mEq/L (23-29); Chloride 109 mEq/L (98-107); Glucose 122 mg/dL (70-105); Osmolality,Calculated 285 (280-300); Potassium 3.4 mEq/L (3.5-5.1); Sodium 136 mEq/L (136-145); eGFR For Non-African Americans > 60 (> 60)
[2018-03-14] MEDS: Aspirin Enteric Coated 81 MG Tablet PO SCH (08:45)
[2018-03-14] MEDS ORDERED: Isovue-370 500 ML INFUS..BTL IV ONE (10:45)
[2018-03-14] MEDS: Regadenoson 0.4 MG/5 ML SYRINGE IVP ONE ×2 (12:32→12:33)
--- NOTE | 2018-03-14 15:50 | Internal Med Progress Note ---
Hospitalist Progress Note - Encounter Date of Encounter: 03/14/18 Time of Encounter: 15:47 - Subjective Interval History: Seen and examined at bedside. Patient is new to me, information obtained from chart review and patient report. Overall says she is feeling better but she is still weak and tired. Still having some chest pain that is worse with deep inspiration and palpation. No shortness of breath. He guarding her leukocytosis she denied fevers, no chills. No cough, no dysuria. Denied wounds. - Exam Vitals: Temp Pulse Resp BP Pulse Ox 97.9 F 98 15 110/64 95 03/14/18 11:05 03/14/18 11:05 03/14/18 11:05 03/14/18 11:05 03/14/18 11:05 Exam: General appearance: Present: A&O X 3, pleasant, no acute distress - Head Head exam: Present: atraumatic, normocephalic - Eye Eye exam: Present: PERRL, conjuntiva pink, sclera anicteric Pupils: Present: PERRL - Neck Neck exam general surgery: Present: supple, trachea midline. Absent: lymphadenopathy - Respiratory Respiratory exam: Present: chest wall tenderness, CTAB. Absent: accessory muscle use, rales, rhonchi, wheezes - Cardiovascular Cardiovascular exam: Present: RRR, +S1, +S2. Absent: diastolic murmur, gallop, rubs, systolic murmur - GI/Abdominal GI/Abdominal exam: Present: normal bowel sounds, soft, no peritoneal signs. Absent: distended, tenderness - Extremities Exam Extremities exam: Present: warm, radial pulses palpable and symmetrical. Absent: calf tenderness, cyanotic, pedal edema - Neurological Exam Neurological exam: Present: CN II-XII intact, oriented X3, no focal deficits. Absent: pronater drift, facial droop, speech deficit - Skin Skin exam: Present: dry, intact - Assessment and Plan (1) Chest pain Current Visit: Yes Status: Acute Assessment and Plan: patient reported atypical chest pain; described as chest pain that started on day of arrival as she was visiting significant other in the hospital. Serial troponin negative. EKG without acute ST changes. Stress test completed 03/14; final results pending. Chest CTA pending as well. Cont ASA (2) Bipolar disorder Current Visit: Yes Status: Chronic Assessment and Plan: per hx. Cont home medications (3) KHALIF (obstructive sleep apnea) Current Visit: Yes Status: Chronic Assessment and Plan: CPAP at bedtime (4) Diastolic CHF Current Visit: Yes Status: Chronic Assessment and Plan: euvolemic. Continue to monitor (5) History of syncope Current Visit: Yes Status: Acute Assessment and Plan: Patient reported having had an episdoe of syncope for which she does not remember. She has had multiple work ups for syncope in the past 2-3 months, all negative. Recent ECHO and carotid unremarkable. Orthostatic BP was slight drop but not greater than 20 mmHg. etiology unknown at this time as patient does not remember the events therefore unable to obtain accurate/pertinent data. Monitor on telemetry. PT/OT consult (6) Leukocytosis Current Visit: Yes Status: Acute Assessment and Plan: WBC of 34.2, likely result of stress reaction. Febrile, no tachycardia or hypotension. Lactic acid normal. WBC trending down. Blood cultures pending (7) Dehydration Current Visit: Yes Status: Acute Assessment and Plan: imporved with IV fluids. Renal function normalized (8) Tobacco use disorder Current Visit: Yes Status: Chronic Assessment and Plan: current smoker; cessation advised. NRT - Time Spent with Patient Total time spent is greater than 50% in coordination of care (as documented) at patient's floor/unit and/or counseling patient: Internal Medicine: Result - Labs CBC & Chem 7: 03/14/18 03:02 03/14/18 03:02 Labs: Short CBC 03/14/18 Range/Units 03:02 WBC 18.8 H (4.3-11.1) K/mcL Hgb 9.9 L D (11.5-15.4) g/dL Hct 30.9 L (35.3-44.9) % Plt Count 249 (140-400) K/mcL Neutrophils # 16.7 H (1.6-8.9) K/mcL BMP 03/14/18 03:02 Sodium 136 Potassium 3.4 L Chloride 109 H Carbon Dioxide 21 L BUN 17 Creatinine 0.79 Glucose 122 H Calcium 7.9 L Cardiac Enzymes 03/13/18 Range/Units 19:37 Troponin I < 0.03 (< 0.04) ng/mL - ABG Interpretation ABG results: PT/INR, D-dimer PT 12.8 Seconds (9.4-12.1) H 11/16/18 08:31 - Impressions Impressions Ribs X-Ray 03/13/18 16:01 IMPRESSION: No displaced left rib fracture visualized. D/ / Nathan Moore MD / Nahtan Moore MD Interpreting Provider: Nathan Moore MD Consult Discharge Plan - Plan Referrals: Iman Monae, RUG WASHER [Primary Care Provider] - (1) Chest pain Qualifiers: Chest pain type: unspecified Qualified Code(s): R07.9 - Chest pain, unspecified (2) Bipolar disorder Qualifiers: Active/Remission status: remission status unspecified Qualified Code(s): F31.9 - Bipolar disorder, unspecified (4) Diastolic CHF Qualifiers: Heart failure chronicity: chronic Qualified Code(s): I50.32 - Chronic diastolic (congestive) heart failure (6) Leukocytosis Qualifiers: Leukocytosis type: unspecified Qualified Code(s): D72.829 - Elevated white blood cell count, unspecified
[2018-03-14] MEDS: 0.9 % Sodium Chloride 1,000 ML IVC SCH ×2 (18:04→21:20)
[2018-03-14] MEDS: rOPINIRole 1 MG TABLET PO SCH (21:19)
[2018-03-14] MEDS: chlorproMAZINE 25 MG TABLET PO SCH (21:25)
[2018-03-15] MEDS: *HR* HYDROcodone/Acet 5/325 mg TABLET PO PRN ×3 (01:17→19:54)
[2018-03-15] MEDS ORDERED: *HR* Enoxaparin 40 MG/0.4 ML SYRINGE SQ SCH (06:00)
[2018-03-15 07:20] LABS: BUN/Creatinine Ratio 15 (6-26); Blood Urea Nitrogen 11 mg/dL (6-20); Calcium 8.3 mg/dL (8.6-10.3); Carbon Dioxide 17 mEq/L (23-29); Chloride 110 mEq/L (98-107); Glucose 92 mg/dL (70-105); Osmolality,Calculated 285 (280-300); Sodium 138 mEq/L (136-145); eGFR For Non-African Americans > 60 (> 60)
[2018-03-15 08:20] LABS: Hematocrit 28.3 % (35.3-44.9); Hemoglobin 9.2 g/dL (11.5-15.4); Mean Corpuscular HGB Conc 32.5 g/dL (31.6-35.5); Mean Corpuscular Hemoglobin 29.8 pg (28.0-33.3); Mean Corpuscular Volume 91.6 fL (83.0-100.0); Mean Platelet Volume 9.6 fL (9.4-12.4); Platelet Count 223 K/mcL (140-400); Red Blood Count 3.09 M/mcL (3.82-4.97); Red Cell Distribution Width 14.6 % (11.5-14.5)
--- NOTE | 2018-03-15 08:40 | Electrocardiograph Report ---
[address] [place], [place] [address] Test Date: 2018-03-13 Pat Name: Angela Montoya Department: 111 Room: 2NE33 Gender: F Freelance Displayer: : 1960 Requested By: Malcolm Rodríguez Order Number: [id number] Reading MD: Griselda Fournier Measurements Intervals [place] Rate: 101 P: 52 [place]: 164 QRS: 14 QRSD: 97 T: 89 QT: 376 QTc: 434 Interpretive Statements SINUS TACHYCARDIA POSSIBLE LEFT ATRIAL ENLARGEMENT LOW QRS VOLTAGE IN PRECORDIAL LEADS POSSIBLE RIGHT VENTRICULAR CONDUCTION DELAY ST DEVIATION AND MODERATE T-WAVE ABNORMALITY, CONSIDER ANTEROLATERAL ISCHEMIA Electronically Signed On 03-15-2018 8:39:33 EST by Griselda Fournier
[2018-03-15] MEDS: Nicotine 21 MG PATCH.TD24 TD SCH ×2 (09:10→09:21)
[2018-03-15] MEDS: 0.9 % Sodium Chloride 1,000 ML IVC SCH (09:11)
[2018-03-15] MEDS: Aspirin Enteric Coated 81 MG Tablet PO SCH (09:11)
[2018-03-15] MEDS ORDERED: Sucralfate 1 GM TABLET PO SCH (11:30)
--- NOTE | 2018-03-15 12:29 | Internal Med Progress Note ---
Hospitalist Progress Note - Encounter Date of Encounter: 03/15/18 Time of Encounter: 12:27 - Subjective Interval History: Seen and examined at bedside. Laying in bed; appears comfortable. Overall says she feels significantly better. Discussed CTA results with her and she does report epigastric burning sensation that is worse after eating. States she frequently uses Tums after eating. No previous EGD. She is agreeable for GI consult for possible EGD - Exam Vitals: Temp Pulse Resp BP Pulse Ox 97.9 F 92 18 115/67 98 03/15/18 11:32 03/15/18 11:32 03/15/18 11:32 03/15/18 11:32 03/15/18 11:32 Exam: General appearance: Present: A&O X 3, pleasant, no acute distress - Head Head exam: Present: atraumatic, normocephalic - Eye Eye exam: Present: PERRL, conjuntiva pink, sclera anicteric Pupils: Present: PERRL - Neck Neck exam general surgery: Present: supple, trachea midline. Absent: lymphadenopathy - Respiratory Respiratory exam: Present: chest wall tenderness, CTAB. Absent: accessory muscle use, rales, rhonchi, wheezes - Cardiovascular Cardiovascular exam: Present: RRR, +S1, +S2. Absent: diastolic murmur, gallop, rubs, systolic murmur - GI/Abdominal GI/Abdominal exam: Present: normal bowel sounds, soft, no peritoneal signs. Absent: distended, tenderness - Extremities Exam Extremities exam: Present: warm, radial pulses palpable and symmetrical. Absent: calf tenderness, cyanotic, pedal edema - Neurological Exam Neurological exam: Present: CN II-XII intact, oriented X3, no focal deficits. Absent: pronater drift, facial droop, speech deficit - Skin Skin exam: Present: dry, intact - Assessment and Plan (1) Esophagitis Current Visit: Yes Status: Acute Assessment and Plan: chest CTA with new diffuse wall thickening of the esophagus which could be secondary to esophagitis. Patient does report epigastric burning sensation after eating infrequently uses Tums at home. No previous EGD. Add IV PPI, Carafate.. NPO at midnight. GI consulted (2) Chest pain Current Visit: Yes Status: Acute Assessment and Plan: /patient reported atypical chest pain; described as chest pain that started on day of arrival as she was visiting significant other in the hospital. Serial troponin negative. EKG without acute ST changes. 03/14/18 sress test negative for ischemia. Chest CTA negative for pulmonary embolism. With suspected esop hagitis as noted above. No further cardiac testing indicated at this time. (3) Bipolar disorder Current Visit: Yes Status: Chronic Assessment and Plan: per hx. Cont home medications (4) KHALFI (obstructive sleep apnea) Current Visit: Yes Status: Chronic Assessment and Plan: CPAP at bedtime (5) Diastolic CHF Current Visit: Yes Status: Chronic Assessment and Plan: euvolemic. Continue to monitor (6) History of syncope Current Visit: Yes Status: Acute Assessment and Plan: Patient reported having had an episdoe of syncope for which she does not remember. She has had multiple work ups for syncope in the past 2-3 months, all negative. Recent ECHO and carotid unremarkable. Orthostatic BP was slight drop but not greater than 20 mmHg. etiology unknown at this time as patient does not remember the events therefore unable to obtain accurate/pertinent data. Monitor on telemetry. PT/OT consult (7) Leukocytosis Current Visit: Yes Status: Acute Assessment and Plan: WBC of 34.2, likely result of stress reaction. Febrile, no tachycardia or hypotension. Lactic acid normal. WBC trending down. Blood cultures pending (8) Dehydration Current Visit: Yes Status: Acute Assessment and Plan: imporved with IV fluids. Renal function normalized (9) Tobacco use disorder Current Visit: Yes Status: Chronic Assessment and Plan: current smoker; cessation advised. NRT DVT Prophylaxis: SCD; avoid from logical DVT prophylaxis with possible EGD in case biopsies were needed - Time Spent with Patient Total time spent is greater than 50% in coordination of care (as documented) at patient's floor/unit and/or counseling patient: Internal Medicine: Result - Labs CBC & Chem 7: 03/15/18 07:52 03/15/18 06:21 Labs: Short CBC 03/15/18 Range/Units 07:52 WBC 11.3 H (4.3-11.1) K/mcL Hgb 9.2 L (11.5-15.4) g/dL Hct 28.3 L (35.3-44.9) % Plt Count 223 (140-400) K/mcL BMP 03/15/18 06:21 Sodium 138 Potassium 4.0 Chloride 110 H Carbon Dioxide 17 L BUN 11 Creatinine 0.75 Glucose 92 Calcium 8.3 L - ABG Interpretation ABG results: PT/INR, D-dimer PT 12.8 Seconds (9.4-12.1) H 03/13/18 08:31 - Impressions Impressions Chest CTA 03/14/18 10:45 IMPRESSION: 1. No evidence of pulmonary embolism. 2. Diffuse bilateral ground-glass opacities have improved from 01/02/2018 and are favored to represent pulmonary edema given that the heart is enlarged. Small pleural effusions have resolved. 3. New diffuse wall thickening of the mid to distal esophagus which is nonspecific but could relate to esophagitis. Consider correlation with endoscopy. D/ / Asif Burden MD / Asif Burden MD Interpreting Provider: Asif Burden MD Consult Discharge Plan - Plan Referrals: Iman Monae FREEZING MACHINE OPERATOR [Primary Care Provider] - __ (2) Chest pain Qualifiers: Chest pain type: unspecified Qualified Code(s): R07.9 - Chest pain, unspecified (3) Bipolar disorder Qualifiers: Active/Remission status: remission status unspecified Qualified Code(s): F31.9 - Bipolar disorder, unspecified (5) Diastolic CHF Qualifiers: Heart failure chronicity: chronic Qualified Code(s): I50.32 - Chronic diastolic (congestive) heart failure (7) Leukocytosis Qualifiers: Leukocytosis type: unspecified Qualified Code(s): D72.829 - Elevated white blood cell count, unspecified
[2018-03-15] MEDS ORDERED: Furosemide 40 MG/4 ML VIAL IVP ONE (12:41)
--- NOTE | 2018-03-15 12:43 | Internal Med Progress Note ---
Hospitalist Progress Note - Encounter Date of Encounter: 03/15/18 Time of Encounter: 12:41 - Subjective Interval History: Seen and examined at bedside. Laying in bed; appears comfortable. Overall says she feels significantly better. Discussed CTA results with her and she does report epigastric burning sensation that is worse after eating. States she frequently uses Tums after eating. No previous EGD. She is agreeable for GI consult for possible EGD - Exam Vitals: Temp Pulse Resp BP Pulse Ox 97.9 F 92 18 115/67 98 03/15/18 11:32 03/15/18 11:32 03/15/18 11:32 03/15/18 11:32 03/15/18 11:32 Exam: General appearance: Present: A&O X 3, pleasant, no acute distress - Head Head exam: Present: atraumatic, normocephalic - Eye Eye exam: Present: PERRL, conjuntiva pink, sclera anicteric Pupils: Present: PERRL - Neck Neck exam general surgery: Present: supple, trachea midline. Absent: lymphadenopathy - Respiratory Respiratory exam: Present: chest wall tenderness, CTAB, faint crackles bilateral lobes posteriorly; left greater than right. Absent: accessory muscle use, rhonchi, wheezes - Cardiovascular Cardiovascular exam: Present: RRR, +S1, +S2. Absent: diastolic murmur, gallop, rubs, systolic murmur - GI/Abdominal GI/Abdominal exam: Present: normal bowel sounds, soft, no peritoneal signs. Absent: distended, tenderness - Extremities Exam Extremities exam: Present: warm, radial pulses palpable and symmetrical. Absent: calf tenderness, cyanotic, pedal edema - Neurological Exam Neurological exam: Present: CN II-XII intact, oriented X3, no focal deficits. Absent: pronater drift, facial droop, speech deficit - Skin Skin exam: Present: dry, intact - Assessment and Plan (1) Esophagitis Current Visit: Yes Status: Acute Assessment and Plan: chest CTA with new diffuse wall thickening of the esophagus which could be secondary to esophagitis. Patient does report epigastric burning sensation after eating infrequently uses Tums at home. No previous EGD. Add IV PPI, Carafate.. NPO at midnight. GI consulted (2) Diastolic CHF Current Visit: Yes Status: Chronic Assessment and Plan: per hx. 11/2017 TTE with EF 60% and mild diastolic dysfunction. Chest CTA concerning for pulmonary edema. With faint crackles on exam. Not on Lasix at home. Stop IV fluids. Give one-time dose IV Lasix; defer further diuresis to oncoming hospitalist as she does not appear to be overtly overloaded and one- time dose may suffice. Monitor daily weight. Strict I&Os (3) Chest pain Current Visit: Yes Status: Acute Assessment and Plan: /patient reported atypical chest pain; described as chest pain that started on day of arrival as she was visiting significant other in the hospital. Serial troponin negative. EKG without acute ST changes. 03/14/18 sress test negative for ischemia. Chest CTA negative for pulmonary embolism. With suspected esop hagitis as noted above. No further cardiac testing indicated at this time. (4) Leukocytosis Current Visit: Yes Status: Acute Assessment and Plan: WBC of 34.2, likely result of stress reaction. Febrile, no tachycardia or hypotension. Lactic acid normal. WBC trending down. Blood cultures NGTD (5) Anemia Current Visit: No Status: Chronic Assessment and Plan: Hgb dropped to 9.2; baseline appears to be around 11. No active bleeding. Denied melena. Possibly dilutional with IV fluids. Occult stool pending. Monitor repeat H&H (6) Bipolar disorder Current Visit: Yes Status: Chronic Assessment and Plan: per hx. Cont home medications (7) KHALIF (obstructive sleep apnea) Current Visit: Yes Status: Chronic Assessment and Plan: CPAP at bedtime (8) History of syncope Current Visit: Yes Status: Acute Assessment and Plan: Patient reported having had an episdoe of syncope for which she does not remember. She has had multiple work ups for syncope in the past 2-3 months, all negative. Recent ECHO and carotid unremarkable. Orthostatic BP was slight drop but not greater than 20 mmHg. etiology unknown at this time as patient does not remember the events therefore unable to obtain accurate/pertinent data. Monitor on telemetry. PT/OT consult (9) Dehydration Current Visit: Yes Status: Acute Assessment and Plan: imporved with IV fluids. Renal function normalized (10) Tobacco use disorder Current Visit: Yes Status: Chronic Assessment and Plan: current smoker; cessation advised. NRT DVT Prophylaxis: SCDs; avoid from neurological DVD prophylaxis in light of possible EGD and in case biopsies were needed - Time Spent with Patient Total time spent is greater than 50% in coordination of care (as documented) at patient's floor/unit and/or counseling patient: Internal Medicine: Result - Labs CBC & Chem 7: 03/15/18 07:52 03/15/18 06:21 Labs: Short CBC 03/15/18 Range/Units 07:52 WBC 11.3 H (4.3-11.1) K/mcL Hgb 9.2 L (11.5-15.4) g/dL Hct 28.3 L (35.3-44.9) % Plt Count 223 (140-400) K/mcL BMP 03/15/18 06:21 Sodium 138 Potassium 4.0 Chloride 110 H Carbon Dioxide 17 L BUN 11 Creatinine 0.75 Glucose 92 Calcium 8.3 L - ABG Interpretation ABG results: PT/INR, D-dimer PT 12.8 Seconds (9.4-12.1) H 03/13/18 08:31 - Impressions Impressions Chest CTA 03/14/18 10:45 IMPRESSION: 1. No evidence of pulmonary embolism. 2. Diffuse bilateral ground-glass opacities have improved from 01/02/2018 and are favored to represent pulmonary edema given that the heart is enlarged. Small pleural effusions have resolved. 3. New diffuse wall thickening of the mid to distal esophagus which is nonspecific but could relate to esophagitis. Consider correlation with endoscopy. D/ / Asif Burden MD / Asif Burden MD Interpreting Provider: Asif Burden MD Consult Discharge Plan - Plan Referrals: Iman Monae, [employer]ENT [Primary Care Provider] - (2) Diastolic CHF Qualifiers: Heart failure chronicity: chronic Qualified Code(s): I50.32 - Chronic diastolic (congestive) heart failure (3) Chest pain Qualifiers: Chest pain type: unspecified Qualified Code(s): R07.9 - Chest pain, unspecified (4) Leukocytosis Qualifiers: Leukocytosis type: unspecified Qualified Code(s): D72.829 - Elevated white blood cell count, unspecified (5) Anemia Qualifiers: Anemia type: other cause Other causes of anemia: other cause, not classified Qualified Code(s): D64.89 - Other specified anemias (6) Bipolar disorder Qualifiers: Active/Remission status: remission status unspecified Qualified Code(s): F31.9 - Bipolar disorder, unspecified
[2018-03-15] MEDS: Pantoprazole 40 MG VIAL IVP SCH (18:07)
[2018-03-15] MEDS: chlorproMAZINE 25 MG TABLET PO SCH (21:48)
[2018-03-15] MEDS: rOPINIRole 1 MG TABLET PO SCH (21:49)
[2018-03-16] MEDS: *HR* HYDROcodone/Acet 5/325 mg TABLET PO PRN ×3 (02:18→15:51)
[2018-03-16] MEDS: Pantoprazole 40 MG VIAL IVP SCH ×2 (05:51→17:20)
[2018-03-16 06:16] LABS: Hematocrit 34.3 % (35.3-44.9); Mean Corpuscular HGB Conc 31.5 g/dL (31.6-35.5); Mean Corpuscular Hemoglobin 28.8 pg (28.0-33.3); Mean Corpuscular Volume 91.5 fL (83.0-100.0); Mean Platelet Volume 9.5 fL (9.4-12.4); Platelet Count 252 K/mcL (140-400); Red Blood Count 3.75 M/mcL (3.82-4.97); Red Cell Distribution Width 14.2 % (11.5-14.5)
[2018-03-16 06:32] LABS: BUN/Creatinine Ratio 11 (6-26); Blood Urea Nitrogen 9 mg/dL (6-20); Calcium 8.6 mg/dL (8.6-10.3); Carbon Dioxide 25 mEq/L (23-29); Chloride 105 mEq/L (98-107); Glucose 93 mg/dL (70-105); Osmolality,Calculated 286 (280-300); Potassium 3.3 mEq/L (3.5-5.1); Sodium 139 mEq/L (136-145); eGFR For Non-African Americans > 60 (> 60)
[2018-03-16 06:35] LABS: Hemoglobin 10.8 g/dL (11.5-15.4)
[2018-03-16] MEDS: Aspirin Enteric Coated 81 MG Tablet PO SCH (09:02)
[2018-03-16] MEDS: Nicotine 21 MG PATCH.TD24 TD SCH (09:03)
--- NOTE | 2018-03-16 10:49 | Gastroenterology Consult Note ---
<Lester Angulo Simón - Last Filed: 03/16/18 10:47> Date of Encounter: 03/16/18 Time of Encounter: 08:50 - Assessment and plan (1) Esophagitis Status: Acute Assessment and plan: Continue PPI. EGD today to r/o esophagitis, gastritis, duodenitis, PUD, MW tear, or AVM. Keep patient NPO. (2) Abdominal pain Status: Acute Assessment and plan: Continue PPI. EGD today to r/o esophagitis, gastritis, duodenitis, PUD, MW tear, or AVM. Keep patient NPO. Patient educated regarding lifestyle modifications including: (1) avoidance of foods that may precipitate reflux (eg, coffee, alcohol, chocolate, fatty foods). (2) avoidance of acidic foods that may precipitate heartburn (eg, citrus, carbonated drinks, spicy foods). (3) adoption of behaviors that may reduce esophageal acid exposure (see weight loss, smoking cessation, raising the head of the bed, and avoiding recumbency for 2-3 hours after meals). Qualifiers: Abdominal location: epigastric Qualified Code(s): R10.13 - Epigastric pain - Time Spent With Patient Total time spent is greater than 50% in coordination of care (as documented) at patient's floor/unit and/or counseling patient: GI History of Present Illness - Data of Consult Patient: new to practice Consult date: 03/16/18 Requesting Physician: Malcolm Rodríguez MD - Consult Narrative Reason for consult: CTA with esophagitis History of present illness: Ms. Montoya is a 57 year old female with PMHx of CHF, COPD, bipolar, depression who presented to the ED with chest pain and syncope. She started having substernal chest pain with no shortness of breath, dizziness, or nausea. She reports "heart burn" for the past 4-5 months but states it has worsened over the past 1-2 months. She has been using Tums without relief of symptoms. Chest CTA showed no PE but did show diffuse wall thickening from mid to distal esophagus. Troponins were negative x 3. We were consulted to evaluate the esophagitis. Procedures: Colonoscopy 02/22/2011 Dr. Kelsey: Internal hemorrhoids. NSAIDs: ASA Anticoagulation: None Past Med Surg Social Fam HX - Past Medical History Medical history: non-contributory, CHF, COPD Additional medical history: pt denies any history Psychiatric history: anxiety, bipolar, depression - Past Surgical History Surgical History: , cholecystectomy, herniorrhaphy, hysterectomy Additional surgical history: Lung BX- right. - Social History Smoking Status: Former smoker Smokeless Tobacco Status: No Alcohol use: none Drug use: none - Family History Father Living Status: Still Living Hx Family Cardiac Disorders: Yes (heart disease) Grandfather Adopted: No Living Status: Hx Family Cardiac Disorders: Yes Hx Family Cancer: Yes Mother Adopted: No Family Member Ethnicity: Non- Living Status: Still Living Hx Family Cardiac Disorders: No Hx Family Respiratory Disorders: Yes (short of breath) Hx Family Cancer: No Hx Family GI Disorders: No Hx Family Endocrine Disorder: No Hx Family Neuromuscular Disorders: No Hx Family Neurologic Disorders: No Hx Family HEENT Disorders: No Hx Family Autoimmune Disorders: Yes (hyperthyroid) - Gastrointestinal Gastrointestinal: Present: as per HPI - Constitutional Constitutional: as per HPI - EENT Eyes: as per HPI Ears: Present: as per HPI Nose, mouth and throat: Present: as per HPI - Cardiovascular Cardiovascular ROS: Present: as per HPI - Respiratory Respiratory IM: Present: as per HPI - Genitourinary Genitourinary: Absent: change in color, Urinary frequency - Neurological ROS Neurological GI: Present: as per HPI - Hematologic/Lymphatic Hematologic/Lymphatic pediatric: Present: as per HPI - Musculoskeletal Musculoskeletal ROS GI: Present: as per HPI - Integumentary Integumentary GI: Present: as per HPI - Psychiatric ROS Psychiatric GI: Present: as per HPI - Endocrine Endocrine IM: Present: as per HPI - Constitutional Vitals: Temp Pulse Resp BP Pulse Ox 98.2 F 91 15 103/65 96 03/16/18 04:00 03/16/18 08:00 03/16/18 08:00 03/16/18 08:00 03/16/18 09:00 General appearance: Present: cooperative, A&O X 3, no acute distress, answers questions appropriately - Head Head exam: Present: atraumatic, normocephalic - Eye Eye exam: Present: normal appearance, sclera anicteric - ENT ENT exam: Present: mucous membranes dry - Neck Neck exam general surgery: Present: normal inspection, trachea midline - Respiratory Respiratory exam: Present: CTAB. Absent: rales, rhonchi, wheezes - Cardiovascular Cardiovascular exam: Present: RRR, +S1, +S2 - GI/Abdominal GI/Abdominal exam: Present: soft, tenderness (epigastric), no peritoneal signs. Absent: distended, firm, guarding - Rectal Rectal exam: Present: deferred - Extremities Exam Extremities exam: Present: warm - Neurological Exam Neurological exam: Present: no focal deficits - Psychiatric Psychiatric exam: Present: normal affect, normal mood - Skin Skin exam: Present: dry, intact, normal color, warm Results - Labs CBC & Chem 7: 03/16/18 05:58 03/16/18 05:58 Labs: Last Result Calcium 8.6 mg/dL (8.6-10.3) 03/16/18 05:58 Troponin I < 0.03 ng/mL (< 0.04) 03/13/18 19:37 Urine Opiates Screen Negative ng/mL ([id number]) 03/13/18 15:20 Entire Visit Hgb 10.8 g/dL (11.5-15.4) L D 03/16/18 05:58 Hct 34.3 % (35.3-44.9) L 03/16/18 05:58 PT 12.8 Seconds (9.4-12.1) H 03/13/18 08:31 Lipase 3 Units/L (11-82) L 03/13/18 08:41 - ABG ABG results: PT/INR, D-dimer PT 12.8 Seconds (9.4-12.1) H 03/13/18 08:31 Consult Discharge Plan - Plan Instructions: Chest Pain (DC), Diet for Ulcers and Gastritis (GEN), Syncope (DC), Leukocytosis (DC) Referrals: Iman Monae, [employer] [Primary Care Provider] - (please call and make a follow up appointment for 5-7 days ) Prescriptions: RX: Omeprazole [PriLOSEC] 40 mg PO DAILY 30 Days #30 cap RX: Sucralfate [Carafate] 1 gm PO QIDAC 30 Days #120 udc <Jovanni Alvarado - Last Filed: 03/25/18 12:04> Date of Encounter: 03/16/18 - Time Spent With Patient Total time spent is greater than 50% in coordination of care (as documented) at patient's floor/unit and/or counseling patient: GI History of Present Illness - Data of Consult Requesting Physician: Malcolm Rodríguez MD - Consult Narrative History of present illness: Ms. Montoya is a 57 year old female - Constitutional Vitals: Temp Pulse Resp BP Pulse Ox 98.4 F 96 15 110/69 92 03/16/18 15:21 03/16/18 15:21 03/16/18 15:21 03/16/18 15:21 03/16/18 15:21 Results - Labs CBC & Chem 7: 03/16/18 05:58 03/16/18 05:58 Labs: Last Result Calcium 8.6 mg/dL (8.6-10.3) 03/16/18 05:58 Troponin I < 0.03 ng/mL (< 0.04) 03/13/18 19:37 Urine Opiates Screen Negative ng/mL (Isrpje=[id number]) 03/13/18 15:20 Entire Visit Hgb 10.8 g/dL (11.5-15.4) L D 03/16/18 05:58 Hct 34.3 % (35.3-44.9) L 03/16/18 05:58 PT 12.8 Seconds (9.4-12.1) H 03/13/18 08:31 Lipase 3 Units/L (11-82) L 03/13/18 08:41 - ABG ABG results: PT/INR, D-dimer PT 12.8 Seconds (9.4-12.1) H 03/13/18 08:31 - Attending Attestation I have personally performed a face to face evaluation on this patient. I have reviewed and agree with the care plan. History and Exam by me shows:
--- NOTE | 2018-03-16 13:08 | Anesthesia Evaluation PreOp ---
Date of Encounter: 03/16/18 Time of Encounter: 13:06 - Past History Planned Operation: EGD Cardiac History: CHF (diastolic CHF) Pulmonary History: Former smoker, KHALIF Dx (does not use her CPAP machine) [employer] History: Other (Bipolar disorder) Other Medical History: Denies Any Significant HX Anesthesia History: No Prior Anesthetic Complications, Problems (woke up in middle of EGD previously) Alcohol Use: none Drug use: none Medications and Allergies Aspirin [Lo-Dose Aspirin EC] 81 mg PO DAILY 03/13/18 [History] Chlorpromazine HCl 300 mg PO HS 03/13/18 [History] Doxepin HCl 150 mg PO HS 03/13/18 [History] Etodolac 400 mg PO BID 03/13/18 [History] PARoxetine HCl [Paroxetine HCl] 60 mg PO QAM 03/13/18 [History] Promethazine HCl 12.5 mg PO DAILY PRN 03/13/18 [History] Ropinirole HCl [Requip] 1 mg PO HS 03/13/18 [History] hydrOXYzine HCl [Hydroxyzine HCl] 25 mg PO BID PRN 03/13/18 [History] Allergy/AdvReac Type Severity Reaction Status Date / Time sulfamethoxazole Allergy Intermediate See Verified 03/13/18 11:03 [From Bactrim] Comments metoclopramide [From Reglan] Allergy Mild Itching Verified 03/13/18 11:03 tramadol Allergy Mild Itching Verified 03/13/18 11:03 amitriptyline Allergy Itching Verified 03/13/18 11:03 codeine Allergy Hives Verified 03/13/18 11:03 Sulfa (Sulfonamide Allergy See Verified 03/13/18 11:03 Antibiotics) Comments trimethoprim [From Bactrim] Allergy See Verified 03/13/18 11:03 Comments lorazepam [From Ativan] AdvReac Mild Anxiety Verified 03/13/18 11:03 benztropine [From Cogentin] AdvReac See Verified 03/13/18 11:03 Comments ciprofloxacin [From Cipro] AdvReac See Verified 03/13/18 11:03 Comments onabotulinumtoxinA AdvReac See Verified 03/13/18 11:03 [From Botox] Comments sertraline [From Zoloft] AdvReac Headache Verified 03/13/18 11:03 sumatriptan [From Imitrex] AdvReac Agitated Verified 03/13/18 11:03 topiramate [From Topamax] AdvReac See Verified 03/13/18 11:03 Comments - Meds/Allergy Pre-op Review Medications Reviewed: Yes Allergies Reviewed: Yes Beta Blockers on Current Med List: No Anesthesia Results - Labs 03/16/18 05:58 03/16/18 05:58 - Imaging EKG: report reviewed, image reviewed (SINUS TACHYCARDIA POSSIBLE LEFT ATRIAL ENLARGEMENT LOW QRS VOLTAGE IN PRECORDIAL LEADS POSSIBLE RIGHT VENTRICULAR CONDUCTION DELAY ST DEVIATION AND MODERATE T-WAVE ABNORMALITY, CONSIDER ANTEROLATERAL ISCHEMI) Additional studies: TTE: Impressions: LVEF 60-65%. Normal LV chamber size, wall thickness and function. Mild left ventricular diastolic dysfunction. Normal right ventricular structure and function. No evidence of a PFO with agitated saline contrast. Unable to estimate RVSP due to lack of TR jet. No significant valvular dysfunction. Anesthesia Exam Last Vital Signs Temp 98.2 F 03/16/18 04:00 Pulse 100 03/16/18 13:00 Resp 20 03/16/18 13:00 BP 114/64 03/16/18 13:00 Pulse Ox 93 03/16/18 13:00 Weight: 76 kg NPO (# of Hours): > 8 hrs - HEENT Pupil (Motor): Pupils equal, EOMI Mallampati: III Teeth: Poor dentition Oral Opening: Greater than 3 - [employer] LOC: Oriented - Cardiac Rhythm: Regular Murmur: None - Pulmonary Breath Sounds: bilateral Clear Respiratory Effort: Symmetrical Anesthesia Assess/Plan ASA Score: 3 Level of consciousness: Cooperative Anesthetic Plan: MAC Monitoring Plan: Standard Monitors Recovery Plan: PACU
[2018-03-16] MEDS ORDERED: Lidocaine -MPF 2% 2 ML VIAL ONE (13:16)
--- NOTE | 2018-03-16 13:48 | Anesthesia Evaluation Post Op ---
Date of Encounter: 03/16/18 Time of Encounter: 13:46 - Vital Signs Vital Signs: HR 94 BP 119/67 SpO2 99% RR 16 - Lungs Lungs: Clear Ascult./Percussion - Airway Airway: Non-obstructed - Cardiovascular Regular Rate - Mental Status Mental Status: Alert & Oriented, Answers Appropriately - Pain Pain Scale: 0 Pain Scale used: Numeric (1 - 10) - Nausea Vomiting Nausea Vomiting: Not Present - Hydration Hydration: NPO Notes: 03/16/18 13:47 Pt has fully recovered from anesthesia. VSS. A/O. Neuro exam intact. - Discharge PostOp Status: Transfer Patient to floor
[2018-03-16 15:23] VITALS: BP 110/69
--- NOTE | 2018-03-16 17:15 | Internal Med Progress Note ---
Hospitalist Progress Note - Encounter Date of Encounter: 03/16/18 Time of Encounter: 17:13 - Subjective Interval History: Pt denies fever, chills, N/V or diarrhea. She denies CP or SOB. She denies abdominal pain. - Exam Vitals: Temp Pulse Resp BP Pulse Ox 98.4 F 96 15 110/69 92 03/16/18 15:21 03/16/18 15:21 03/16/18 15:21 03/16/18 15:21 03/16/18 15:21 Exam: General appearance: Present: A&O X 3, pleasant, no acute distress, obese Exam: see below - Head Head exam: Present: atraumatic, normocephalic - Eye Eye exam: Present: PERRL, conjuntiva pink, sclera anicteric Pupils: Present: PERRL - Neck Neck exam general surgery: Present: supple, trachea midline. Absent: lymphadenopathy - Respiratory Respiratory exam: Present: CTAB. Absent: accessory muscle use, rales, rhonchi, wheezes - Cardiovascular Cardiovascular exam: Present: RRR, +S1, +S2. Absent: diastolic murmur, gallop, rubs, systolic murmur - GI/Abdominal GI/Abdominal exam: Present: normal bowel sounds, soft, no peritoneal signs. Absent: distended, tenderness - Extremities Exam Extremities exam: Present: warm, radial pulses palpable and symmetrical. Absent: calf tenderness, cyanotic, pedal edema - Back Exam Additional comments: L side back bruises on the flank region and on the subscapular region, mild tenderness - Neurological Exam Neurological exam: Present: alert, CN II-XII intact, oriented X3, no focal deficits. Absent: pronater drift, facial droop, speech deficit - Skin Skin exam: Present: dry, intact - Assessment and Plan (1) Chest pain Current Visit: Yes Status: Acute Assessment and Plan: Patient reported atypical chest pain; described as chest pain that started on day of arrival as she was visiting significant other in the hospital. Serial troponin negative. EKG without acute ST changes. 03/14/18 sress test negative for ischemia. Chest CTA negative for pulmonary embolism. With suspected esophagitis as noted. No further cardiac testing indicated at this time. (2) Esophagitis Current Visit: Yes Status: Acute Assessment and Plan: chest CTA with new diffuse wall thickening of the esophagus which could be secondary to esophagitis. Patient does report epigastric burning sensation after eating infrequently uses Tums at home. s/p EGD today showed non bleeding esophageal ulcers and gastritis. GI recommending add IV PPI, Carafate, and ok to resume diet. If tolerates will DC. Follow up with GI out pt in 6 weeks (3) Bipolar disorder Current Visit: Yes Status: Chronic Assessment and Plan: per hx. Cont home medications (4) Anemia Current Visit: No Status: Chronic Assessment and Plan: Hgb dropped to 9.2; baseline appears to be around 11. No active bleeding. Denied melena. Possibly dilutional with IV fluids. Occult stool pending. s/p EGD and showed noon-bleeding esophageal ulcers. (5) KHALIF (obstructive sleep apnea) Current Visit: Yes Status: Chronic Assessment and Plan: CPAP at bedtime (6) Diastolic CHF Current Visit: Yes Status: Chronic Assessment and Plan: per hx. 11/2017 TTE with EF 60% and mild diastolic dysfunction. Chest CTA concerning for pulmonary edema. Per prior hospitalist pt had faint crackles on exam. Not on Lasix at home. Stopped IV fluids. Given one-time dose IV Lasix. No further diuresis recommended at this time. Pt appears euvolemic. (7) History of syncope Current Visit: Yes Status: Acute Assessment and Plan: Patient reported having had an episdoe of syncope for which she does not remember. She has had multiple work ups for syncope in the past 2-3 months, all negative. Recent ECHO and carotid unremarkable. Orthostatic BP was slight drop but not greater than 20 mmHg. etiology unknown at this time as patient does not remember the events therefore unable to obtain accurate/pertinent data. Monitor on telemetry. PT/OT consult (8) Leukocytosis Current Visit: Yes Status: Acute Assessment and Plan: WBC of 34.2 on admission down to 7.9 today, likely result of stress reaction. Afebrile, no tachycardia or hypotension. Lactic acid normal. Blood cultures NGTD WBC trended down without intervention. (9) Dehydration Current Visit: Yes Status: Acute (10) Tobacco use disorder Current Visit: Yes Status: Chronic Assessment and Plan: current smoker; cessation advised. NRT DVT Prophylaxis: SCD - Summary of Assessment and Plan Summary of Assessment and Plan: History of present illness: Dr. Rodríguez Ms. Montoya is a 57 year old female with medical history of depression, bipolar disorder, hypertension, diastolic CHF, multiple admissions for syncope and hype rtension who presented with a history of syncope. She reports that she was found down by her parents yesterday in her apartment, she does not remember when she fell. She did not present to the ER panel came in to this facility to visit her boyfriend and on however we will to the nurses station she felt her" and she started feeling chest pain. She reports chest pain is precordial radiates to the back and spine without. She has no associated diaphoresis, shortness of breath, dizziness or nausea. She has no pedal edema, she is not a known hypertensive she used to smoke but quit several years ago. She denies illicit drug use, she denies any abdominal symptoms, she has no changes in genitourinary or bowel habits. Family history is unremarkable During evaluation in the ER the patient is alert and oriented 3 and able to give a history not in any form of distress. Workup in the ER showed leukocytosis 07898 and mild dehydration, chemistry, troponin is negative EKG shows sinus tachycardia and right atrial enlargement. She also had one episode of hypotension in the ER which improved with IV fluid hydration. She will be placed on suspicion for syncope and chest pain workup as well as leukocytosis with mild dehydration. She is full code. - Time Spent with Patient Total time spent is greater than 50% in coordination of care (as documented) at patient's floor/unit and/or counseling patient: less than 15 minutes Plan of Care Discussed with: patient Internal Medicine: Result - Labs CBC & Chem 7: 03/16/18 05:58 03/16/18 05:58 Labs: Short CBC 03/16/18 Range/Units 05:58 WBC 7.9 (4.3-11.1) K/mcL Hgb 10.8 L D (11.5-15.4) g/dL Hct 34.3 L (35.3-44.9) % Plt Count 252 (140-400) K/mcL BMP 03/16/18 05:58 Sodium 139 Potassium 3.3 L Chloride 105 Carbon Dioxide 25 BUN 9 Creatinine 0.81 Glucose 93 Calcium 8.6 - ABG Interpretation ABG results: PT/INR, D-dimer PT 12.8 Seconds (9.4-12.1) H 03/13/18 08:31 Consult Discharge Plan - Plan Referrals: Iman Monae, [employer]ICS [Primary Care Provider] - (1) Chest pain Qualifiers: Chest pain type: unspecified Qualified Code(s): R07.9 - Chest pain, unspecified (3) Bipolar disorder Qualifiers: Active/Remission status: remission status unspecified Qualified Code(s): F31.9 - Bipolar disorder, unspecified (4) Anemia Qualifiers: Anemia type: other cause Other causes of anemia: other cause, not classified Qualified Code(s): D64.89 - Other specified anemias (6) Diastolic CHF Qualifiers: Heart failure chronicity: chronic Qualified Code(s): I50.32 - Chronic diastolic (congestive) heart failure (8) Leukocytosis Qualifiers: Leukocytosis type: unspecified Qualified Code(s): D72.829 - Elevated white blood cell count, unspecified
--- NOTE | 2018-03-16 17:34 | Discharge Summary ---
- NOTES TO OUTPATIENT PROVIDER Notes to Outpatient Provider: PCP in 5 to 7 days. GI out pt as scheduled Orders not resulted at time of discharge: Pending orders 03/13/18 10:06 NM campbell perf SPECT multi [NM] Routine 03/14/18 10:20 Culture,Blood [BC] Stat 03/15/18 12:32 Occult Blood,Stool [BF] Routine 03/16/18 13:31 Surgical Pathology [PTH] Routine 03/17/18 04:00 BMP [Basic Metabolic Panel] AM 0400 Complete Blood Count w/o Diff [HEME] AM 0400 03/18/18 04:00 BMP [Basic Metabolic Panel] AM 0400 Complete Blood Count w/o Diff [HEME] AM 04003/19/18 04:00 BMP [Basic Metabolic Panel] AM 0400 Complete Blood Count w/o Diff [HEME] AM 0400 Date of Encounter: 03/16/18 Time of Encounter: 17:31 - Discharge Diagnosis (1) Chest pain Priority: Primary Status: Acute Assessment and Plan: Patient reported atypical chest pain; described as chest pain that started on day of arrival as she was visiting significant other in the hospital. Serial troponin negative. EKG without acute ST changes. 03/14/18 sress test negative for ischemia. Chest CTA negative for pulmonary embolism. With suspected esophagitis as noted. No further cardiac testing indicated at this time. Qualifiers: Chest pain type: unspecified Qualified Code(s): R07.9 - Chest pain, unspecified (2) Esophagitis Priority: Primary Status: Acute Assessment and Plan: chest CTA with new diffuse wall thickening of the esophagus which could be secondary to esophagitis. Patient does report epigastric burning sensation after eating infrequently uses Tums at home. s/p EGD today showed non bleeding esophageal ulcers and gastritis. GI recommending add IV PPI, Carafate, and ok to resume diet. If tolerates will DC. Follow up with GI out pt in 6 weeks (3) Bipolar disorder Priority: Secondary Status: Chronic Assessment and Plan: per hx. Cont home medications Qualifiers: Active/Remission status: remission status unspecified Qualified Code(s): F31.9 - Bipolar disorder, unspecified (4) Anemia Priority: Secondary Status: Chronic Assessment and Plan: Hgb dropped to 9.2; baseline appears to be around 11. No active bleeding. Denied melena. Possibly dilutional with IV fluids. Occult stool pending. s/p EGD and showed noon-bleeding esophageal ulcers. Qualifiers: Anemia type: other cause Other causes of anemia: other cause, not classified Qualified Code(s): D64.89 - Other specified anemias (5) KHALIF (obstructive sleep apnea) Priority: Secondary Status: Chronic Assessment and Plan: CPAP at bedtime (6) Diastolic CHF Priority: Secondary Status: Chronic Assessment and Plan: per hx. 11/2017 TTE with EF 60% and mild diastolic dysfunction. Chest CTA concerning for pulmonary edema. Per prior hospitalist pt had faint crackles on exam. Not on Lasix at home. Stopped IV fluids. Given one-time dose IV Lasix. No further diuresis recommended at this time. Pt appears euvolemic. Follow up out pt with PCP. Qualifiers: Heart failure chronicity: chronic Qualified Code(s): I50.32 - Chronic diastolic (congestive) heart failure (7) History of syncope Priority: Secondary Status: Acute Assessment and Plan: Patient reported having had an episdoe of syncope for which she does not remember. She has had multiple work ups for syncope in the past 2-3 months, all negative. Recent ECHO and carotid unremarkable. Orthostatic BP was slight drop but not greater than 20 mmHg. etiology unknown at this time as patient does not remember the events therefore unable to obtain accurate/pertinent data. Monitor on telemetry. PT/OT consult (8) Leukocytosis Priority: Primary Status: Acute Assessment and Plan: Resolved. WBC of 34.2 on admission down to 7.9 today, likely result of stress reaction. Afebrile, no tachycardia or hypotension. Lactic acid normal. Blood cultures NGTD WBC trended down without intervention. Qualifiers: Leukocytosis type: unspecified Qualified Code(s): D72.829 - Elevated white blood cell count, unspecified (9) Dehydration Priority: Secondary Status: Acute Assessment and Plan: imporved with IV fluids. Renal function normalized (10) Tobacco use disorder Priority: Secondary Status: Chronic Assessment and Plan: current smoker; cessation advised. NRT Hospital course: History of present illness: Dr. Rodríguez Ms. Montoya is a 57 year old female with medical history of depression, bipolar disorder, hypertension, diastolic CHF, multiple admissions for syncope and hypertension who presented with a history of syncope. She reports that she was found down by her parents yesterday in her apartment, she does not remember when she fell. She did not present to the ER panel came in to this facility to visit her boyfriend and on however we will to the nurses station she felt her" and she started feeling chest pain. She reports chest pain is precordial radiates to the back and spine without. She has no associated diaphoresis, shortness of breath, dizziness or nausea. She has no pedal edema, she is not a known hypertensive she used to smoke but quit several years ago. She denies illicit drug use, she denies any abdominal symptoms, she has no changes in genitourinary or bowel habits. Family history is unremarkable During evaluation in the ER the patient is alert and oriented 3 and able to give a history not in any form of distress. Workup in the ER showed leukocytosis 08235 and mild dehydration, chemistry, troponin is negative EKG shows sinus tachycardia and right atrial enlargement. She also had one episode of hypotension in the ER which improved with IV fluid hydration. She will be placed on suspicion for syncope and chest pain workup as well as leukocytosis with mild dehydration. She is full code. Discharge discussed with: patient - Time Spent with Patient Total time spent providing and/or coordinating discharge services: Greater than 30 minutes - Discharge Medications Prescriptions: Omeprazole [PriLOSEC] 40 mg PO DAILY 30 Days #30 cap Sucralfate [Carafate] 1 gm PO QIDAC 30 Days #120 udc Home Medications: Aspirin [Lo-Dose Aspirin EC] 81 mg PO DAILY 03/13/18 [History] Chlorpromazine HCl 300 mg PO HS 03/13/18 [History] Doxepin HCl 150 mg PO HS 03/13/18 [History] Etodolac 400 mg PO BID 03/13/18 [History] PARoxetine HCl [Paroxetine HCl] 60 mg PO QAM 03/13/18 [History] Promethazine HCl 12.5 mg PO DAILY PRN 03/13/18 [History] Ropinirole HCl [Requip] 1 mg PO HS 03/13/18 [History] hydrOXYzine HCl [Hydroxyzine HCl] 25 mg PO BID PRN 03/13/18 [History] Omeprazole [PriLOSEC] 40 mg PO DAILY 30 Days #30 cap 03/16/18 [Rx] Sucralfate [Carafate] 1 gm PO QIDAC 30 Days #120 udc 03/16/18 [Rx] Allergies/Adverse Reactions: Allergy/AdvReac Type Severity Reaction Status Date / Time sulfamethoxazole Allergy Intermediate See Verified 03/13/18 11:03 [From Bactrim] Comments metoclopramide [From Reglan] Allergy Mild Itching Verified 03/13/18 11:03 tramadol Allergy Mild Itching Verified 03/13/18 11:03 amitriptyline Allergy Itching Verified 03/13/18 11:03 codeine Allergy Hives Verified 03/13/18 11:03 Sulfa (Sulfonamide Allergy See Verified 03/13/18 11:03 Antibiotics) Comments trimethoprim [From Bactrim] Allergy See Verified 03/13/18 11:03 Comments lorazepam [From Ativan] AdvReac Mild Anxiety Verified 03/13/18 11:03 benztropine [From Cogentin] AdvReac See Verified 03/13/18 11:03 Comments ciprofloxacin [From Cipro] AdvReac See Verified 03/13/18 11:03 Comments onabotulinumtoxinA AdvReac See Verified 03/13/18 11:03 [From Botox] Comments sertraline [From Zoloft] AdvReac Headache Verified 03/13/18 11:03 sumatriptan [From Imitrex] AdvReac Agitated Verified 03/13/18 11:03 topiramate [From Topamax] AdvReac See Verified 03/13/18 11:03 Comments Date of admission: 03/13/18 10:07 Primary care physician: Iman Monae CNP Consults: 03/13/18 11:26 Consult to Physical Therapy [CONS] Routine Comment: Evaluate, develop and implement POC Reason for Consult: Chest pain, syncope, dehydration Does patient have active BEDREST order?: No Is patient medically & hemodynamically stable?: Yes 03/13/18 13:55 Consult to Pastoral Services [CONS] Routine Comment: 03/15/18 08:23 Consult to Gastroenterology [CONS] Routine Consulting Provider: Gastroenterology Patty Reason for Consult: presented with chest pain. CTA showed possible esophagitis. ? need for EGD Call Completed: Yes Discharging clinician: Anabelle Trent Anticipated date of discharge: 03/16/18 - Constitutional Vitals: Temp Pulse Resp BP Pulse Ox 98.4 F 96 15 110/69 92 03/16/18 15:21 03/16/18 15:21 03/16/18 15:21 03/16/18 15:21 03/16/18 15:21 General appearance: Present: A&O X 3, pleasant, no acute distress, obese Exam: General appearance: Present: A&O X 3, pleasant, no acute distress, obese Exam: see below - Head Head exam: Present: atraumatic, normocephalic - Eye Eye exam: Present: PERRL, conjuntiva pink, sclera anicteric Pupils: Present: PERRL - Neck Neck exam general surgery: Present: supple, trachea midline. Absent: lymphadenopathy - Respiratory Respiratory exam: Present: CTAB. Absent: accessory muscle use, rales, rhonchi, wheezes - Cardiovascular Cardiovascular exam: Present: RRR, +S1, +S2. Absent: diastolic murmur, gallop, rubs, systolic murmur - GI/Abdominal GI/Abdominal exam: Present: normal bowel sounds, soft, no peritoneal signs. Absent: distended, tenderness - Extremities Exam Extremities exam: Present: warm, radial pulses palpable and symmetrical. Absent: calf tenderness, cyanotic, pedal edema - Back Exam Additional comments: L side back bruises on the flank region and on the subscapular region, mild tenderness - Neurological Exam Neurological exam: Present: alert, CN II-XII intact, oriented X3, no focal deficits. Absent: pronater drift, facial droop, speech deficit - Skin Skin exam: Present: dry, intact - Patient Status Disposition: Home, Self-Care Condition: Fair Overall status at discharge: patient is back to baseline - Discharge Instructions Follow Up With: Iman Monae [employer] [Primary Care Provider] - - Diet and Activity Activity: increase activity as tolerated Diet: low fat, low cholesterol, low salt diet
== END 2018-03-16 18:55 | disposition home or self-care (01) ==
LOC: 2NENU 08:20 → EMEROOARM 08:20 → 2NENU 11:14
PROVIDERS: ADMIT Internal Medicine; ATTEND Internal Medicine

== ENCOUNTER 2018-07-20 03:57 | Observation (INO) ==
[2018-07-20 04:40] LABS: Basophils # 0.1 K/mcL (0.0-0.2); Basophils % 0.3 %; Eosinophils # 0.1 K/mcL (0.0-0.6); Eosinophils % 0.3 %; Hemoglobin 11.4 g/dL (11.5-15.4); Immature Granulocytes % 0.7 % (0-4); Lymphocytes # 0.8 K/mcL (0.6-4.6); Lymphocytes % 4.7 %; Mean Corpuscular HGB Conc 30.8 g/dL (31.6-35.5); Mean Corpuscular Volume 90.9 fL (83.0-100.0); Mean Platelet Volume 9.5 fL (9.4-12.4); Monocytes # 0.7 K/mcL (0.0-1.3); Monocytes % 4.1 %; Neutrophils # 15.6 K/mcL (1.6-8.9); Platelet Count 346 K/mcL (140-400); Red Blood Count 4.07 M/mcL (3.82-4.97); Red Cell Distribution Width 14.9 % (11.5-14.5); Segmented Neutrophils % 89.9 %
--- NOTE | 2018-07-20 04:45 | Emergency Department Note ---
Disposition Clinical Impression: Weakness, Frequent falls Chest pain Qualifiers: Chest pain type: unspecified Qualified Code(s): R07.9 - Chest pain, unspecified Disposition: Still a Patient Condition: Good General Adult HPI - General Chief complaint: ED General Medical Stated complaint: LT Body Pain Time Seen by Provider: 07/20/18 04:23 Source: patient, EMS Mode of arrival: EMS Limitations: no limitations Nursing Notes Reviewed: Yes Vital Signs Reviewed: Yes - History of Present Illness HPI Narrative: Pt is a 57F with Pmhx of migraines, opioid/percocet addiction that has been clean for two years. Pt states that she has had left sided numbness/tingling combined with tremor that started four days ago. Pt also developed chest pain today, and then weakness. She was unable to walk and fell onto her bottom earlier this evening, so called the squad. She denies hitting her head. She does not know if she lost consciousness. She states that she does not remember when she ate dinner, but is still eating and drinking. Pt describes her chest pain as sharp in nature, radiating to the left and right sides of her chest. She is also endorsing mild nausea and a few episodes of diarrhea over the last several days. Pain Scale: 8 - Related Data Home Medications Medication Instructions Recorded Confirmed Aspirin [Lo-Dose Aspirin EC] 81 mg PO DAILY 03/13/18 03/13/18 Chlorpromazine HCl 300 mg PO HS 03/13/18 03/13/18 Doxepin HCl 150 mg PO HS 03/13/18 03/13/18 Etodolac 400 mg PO BID 03/13/18 03/13/18 PARoxetine HCl [Paroxetine HCl] 60 mg PO QAM 03/13/18 03/13/18 Promethazine HCl 12.5 mg PO DAILY PRN 03/13/18 03/13/18 Ropinirole HCl [Requip] 1 mg PO HS 03/13/18 03/13/18 hydrOXYzine HCl [Hydroxyzine HCl] 25 mg PO BID PRN 03/13/18 03/13/18 Allergies Allergy/AdvReac Type Severity Reaction Status Date / Time sulfamethoxazole Allergy Intermediate See Verified 04/06/18 07:28 [From Bactrim] Comments metoclopramide [From Reglan] Allergy Mild Itching Verified 04/06/18 07:28 amitriptyline Allergy Itching Verified 04/06/18 07:28 Sulfa (Sulfonamide Allergy See Verified 04/06/18 07:28 Antibiotics) Comments trimethoprim [From Bactrim] Allergy See Verified 04/06/18 07:28 Comments lorazepam [From Ativan] AdvReac Mild Anxiety Verified 04/06/18 07:28 benztropine [From Cogentin] AdvReac See Verified 04/06/18 07:28 Comments ciprofloxacin [From Cipro] AdvReac See Verified 04/06/18 07:28 Comments onabotulinumtoxinA AdvReac See Verified 04/06/18 07:28 [From Botox] Comments sertraline [From Zoloft] AdvReac Headache Verified 04/06/18 07:28 sumatriptan [From Imitrex] AdvReac Agitated Verified 04/06/18 07:28 topiramate [From Topamax] AdvReac See Verified 04/06/18 07:28 Comments Constitutional: Denies: fever, chills ENT ED: Denies: throat pain, congestion Cardiovascular: Reports: chest pain Respiratory: Denies: cough, dyspnea, wheezes Gastrointestinal: Reports: nausea, vomiting, diarrhea. Denies: abdominal pain, constipation Genitourinary: Denies: urgency, dysuria Musculoskeletal: Denies: back pain, neck pain Integumentary: Denies: rash, abrasion Neurological: Reports: weakness, numbness, paresthesias, confusion. 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 Absent: tenderness - Respiratory Respiratory exam: Present: normal lung sounds bilaterally. Absent: respiratory distress, wheezes - Cardiovascular Cardiovascular exam: Present: normal rhythm, tachycardia - Abdominal Exam Abdominal exam: Present: soft, tenderness Abdominal tenderness: Present: diffuse - Extremities Exam Extremities exam: Present: normal inspection, full ROM - Back Exam Back exam: Present: normal inspection, full ROM - Neurological Exam Neurological exam: Present: alert, oriented X3, CN II-XII intact - Expanded Neurological Exam Patient oriented to: Present: person, place, time Speech: Present: fluid speech Cranial nerves: EOM function (II, III, IV, ): Normal, facial sensation (V): Normal, facial palsy (VII): Normal, spinal accessory function (XI): Normal, tongue deviation (XII): Normal Cerebellar function: finger to nose: Normal Motor strength - LUE: 5/5 Motor strength - RUE: 5/5 Motor strength - LLE: 5/5 Motor strength - RLE: 5/5 Sensory exam upper extremity: light touch: Normal Sensory exam lower extremity: light touch: Normal Coma Scale Eye Opening: Spontaneous Coma Scale Motor Response: Obeys Commands Coma Scale Verbal Response: Oriented Coma Scale Total: 15 - Psychiatric Psychiatric exam: Present: normal affect, normal mood - Skin Skin exam: Present: warm, dry, intact Course Course Narrative: No focal deficits on neurologic examination. Tremor present in left upper extremity, but is not at present at rest, and has waxing and waning presence. Uncertain etiology. Last known "normal" four days prior. Walked from EMS stretcher to bed. Will check electrolytes, EKG, head CT, CBC, urine drug screen, alcohol level. Pt has a number of psych medications in her list of current meds, uncertain which are current. - Reevaluation(s) Reevaluation #1: Pt is asking for nubain, an opioid analgesic, for her chest pain. Discussed with the pt that this was an opioid and was similar to percocet. She states that she is "doing fine in her recovery" and knows that this medication will work for her. She states that she does not have to pass any drug screenings. Time: 05:19 Vital Signs Temperature 98.3 F 07/20/18 04:00 Pulse Rate 119 07/20/18 04:00 Respiratory Rate 20 07/20/18 04:00 Blood Pressure 94/58 07/20/18 04:00 O2 Sat by Pulse Oximetry 98 07/20/18 04:00 Temperature 98.3 F 07/20/18 04:00 Pulse Rate 128 07/20/18 05:07 Respiratory Rate 18 07/20/18 05:07 Blood Pressure 101/88 07/20/18 05:07 O2 Sat by Pulse Oximetry 97 07/20/18 05:07 Oxygen Delivery Oxygen Delivery Room Air Medical Decision Making - MDM Narrative Medical decision making narrative: Pt will be signed out to the dayshift - Dr. Nestor Jessica. - Medical Records Medical records reviewed: Yes I reviewed the patient's medical records. - Lab Data Lab results reviewed: Yes I reviewed the patient's lab results. Result diagrams: 07/20/18 04:27 07/20/18 04:27 Lab Results 07/20/18 07/20/18 07/20/18 Range/Units 04:27 04:27 04:27 WBC 17.4 H (4.3-11.1) K/mcL RBC 4.07 (3.82-4.97) M/mcL Hgb 11.4 L (11.5-15.4) g/dL Hct 37.0 (35.3-44.9) % MCV 90.9 (83.0-100.0) fL MCH 28.0 (28.0-33.3) pg MCHC 30.8 L (31.6-35.5) g/dL RDW 14.9 H (11.5-14.5) % Plt Count 346 (140-400) K/mcL MPV 9.5 (9.4-12.4) fL Immature Gran % 0.7 (0-4) % Seg Neutrophils % 89.9 % Lymphocytes % 4.7 % Monocytes % 4.1 % Eosinophils % 0.3 % Basophils % 0.3 % Neutrophils # 15.6 H (1.6-8.9) K/mcL Lymphocytes # 0.8 (0.6-4.6) K/mcL Monocytes # 0.7 (0.0-1.3) K/mcL Eosinophils # 0.1 (0.0-0.6) K/mcL Basophils # 0.1 (0.0-0.2) K/mcL Sodium 139 (136-145) mEq/L Potassium 4.1 (3.5-5.1) mEq/L Chloride 108 H (98-107) mEq/L Carbon Dioxide 21 L (23-29) mEq/L BUN 22 H (6-20) mg/dL Creatinine 1.10 (0.60-1.20) mg/dL Est GFR ( Amer) > 60 (> 60) Est GFR (Non-Af Amer) 51 L (> 60) BUN/Creatinine Ratio 20 (6-26) Glucose 156 H (70-105) mg/dL Calculated Osmolality 295 (280-300) Calcium 9.0 (8.6-10.3) mg/dL Total Bilirubin 0.2 L (0.3-1.0) mg/dL Direct Bilirubin 0.1 (0.0-0.2) mg/dL Indirect Bilirubin 0.1 (0.0-1.2) mg/dL AST 31 (13-39) Units/L ALT 44 (7-52) Units/L Alkaline Phosphatase 166 H (34-104) Units/L Ammonia 43 (16-53) mcmol/L Troponin I < 0.03 (< 0.04) ng/mL Serum Total Protein 6.5 (6.4-8.9) g/dL Albumin 3.8 (3.5-5.7) g/dL Globulin 2.7 (2.4-3.5) g/dL Albumin/Globulin Ratio 1.4 (1.1-2.2) Ethyl Alcohol < 10 (Less than 10) mg/dL - Radiology Data Radiology results reviewed: Yes I reviewed the patient's radiology results. Chest X-Ray 07/20/18 04:25 IMPRESSION: No acute disease. D/ / José Oliveira MD / José Oliveira MD Interpreting Provider: José Oliveira MD Head CT 07/20/18 04:26 IMPRESSION: No acute intracranial abnormality. D/ / Tang Fernandez / Tang Fernandez Interpreting Provider: Tang Fernandez - EKG Data EKG #1 EKG attestation: Yes I reviewed and interpreted this EKG. EKG results narrative: HR 117, rhythm sinus tachycardia, axis normal. [place] 173. QRS 102. QTc 469. Nonspecific t wave abnormalities.
[2018-07-20 04:58] LABS: Alanine Aminotransferase 44 Units/L (7-52); Albumin 3.8 g/dL (3.5-5.7); Albumin/Globulin Ratio 1.4 (1.1-2.2); Alkaline Phosphatase 166 Units/L (34-104); Aspartate Amino Transferase 31 Units/L (13-39); BUN/Creatinine Ratio 20 (6-26); Bilirubin,Direct 0.1 mg/dL (0.0-0.2); Bilirubin,Indirect 0.1 mg/dL (0.0-1.2); Bilirubin,Total 0.2 mg/dL (0.3-1.0); Blood Urea Nitrogen 22 mg/dL (6-20); Carbon Dioxide 21 mEq/L (23-29); Chloride 108 mEq/L (98-107); Ethanol < 10 mg/dL (Less than 10); Globulin 2.7 g/dL (2.4-3.5); Glucose 156 mg/dL (70-105); Osmolality,Calculated 295 (280-300); Potassium 4.1 mEq/L (3.5-5.1); Sodium 139 mEq/L (136-145); Total Protein 6.5 g/dL (6.4-8.9); eGFR For Non-African Americans 51 (> 60)
[2018-07-20] MEDS ORDERED: Aspirin 325 MG TABLET PO ONE (05:22)
[2018-07-20] MEDS ORDERED: Ibuprofen 800 MG TABLET PO ONE (05:22)
[2018-07-20 05:23] LABS: Troponin I < 0.03 ng/mL (< 0.04)
[2018-07-20] MEDS ORDERED: 0.9 % Sodium Chloride 1,000 ML IVC ONE (07:21)
[2018-07-20] MEDS ORDERED: Nitroglycerin 1 INCH/GM PACKET TP ONE (07:41)
[2018-07-20 07:44] LABS: Bilirubin,Urine Negative (Negative); Blood,Urine Negative (Negative); Clarity,Urine Clear (Clear); Color,Urine Yellow (Yellow); Glucose,Urine (UA) Normal (Normal); Ketones,Urine Negative (Negative); Leukocyte Esterase,Urine Small (Negative); Nitrite,Urine Negative (Negative); PH,Urine 5.5 pH Units (5.0-8.0); Protein,Urine Negative (Neg-Trace); Specific Gravity,Urine 1.015 (1.010-1.025); Urobilinogen,Urine Normal (Normal)
[2018-07-20 07:47] LABS: Bacteria,Urine None Seen per hpf (None-Few); Hyaline Casts,Urine None Seen per lpf (None-Few); RBC,Urine 0-3 per hpf (0-3); Squamous Epithelial Cell,Urine Many per lpf (None-Few)
[2018-07-20 07:49] LABS: Amphetamine Screen,Urine Negative ng/mL (Cutoff=1000); Barbiturate Screen,Urine Negative ng/mL (Cutoff=200)
[2018-07-20 07:50] LABS: Benzodiazepines Screen,Urine Negative ng/mL (Cutoff=300); Cannabinoid Screen,Urine Negative ng/mL (Cutoff = 50); Cocaine Screen,Urine Negative ng/mL (Cutoff= 300); Opiate Screen,Urine Negative ng/mL (Cutoff=300); Phencyclidine Screen,Urine Negative ng/mL (Cutoff=25)
--- NOTE | 2018-07-20 08:23 | Emergency Department Note ---
Disposition Clinical Impression: Weakness, Frequent falls Chest pain Qualifiers: Chest pain type: unspecified Qualified Code(s): R07.9 - Chest pain, unspecified Disposition: Still a Patient Condition: Good Referrals: Iman Monae CNP [Primary Care Provider] - Forms: ED Satisfaction Letter, Work/School Release General Adult HPI - General Chief complaint: ED General Medical Stated complaint: LT Body Pain Time Seen by Provider: 07/20/18 04:23 Source: patient, EMS Mode of arrival: EMS Limitations: no limitations Nursing Notes Reviewed: Yes Vital Signs Reviewed: Yes - History of Present Illness Pain Scale: 8 - Related Data Home Medications Medication Instructions Recorded Confirmed Aspirin [Lo-Dose Aspirin EC] 81 mg PO DAILY 03/13/18 03/13/18 Chlorpromazine HCl 300 mg PO HS 03/13/18 03/13/18 Doxepin HCl 150 mg PO HS 03/13/18 03/13/18 Etodolac 400 mg PO BID 03/13/18 03/13/18 PARoxetine HCl [Paroxetine HCl] 60 mg PO QAM 03/13/18 03/13/18 Promethazine HCl 12.5 mg PO DAILY PRN 03/13/18 03/13/18 Ropinirole HCl [Requip] 1 mg PO HS 03/13/18 03/13/18 hydrOXYzine HCl [Hydroxyzine HCl] 25 mg PO BID PRN 03/13/18 03/13/18 Allergies Allergy/AdvReac Type Severity Reaction Status Date / Time sulfamethoxazole Allergy Intermediate See Verified 04/06/18 07:28 [From Bactrim] Comments metoclopramide [From Reglan] Allergy Mild Itching Verified 04/06/18 07:28 amitriptyline Allergy Itching Verified 04/06/18 07:28 Sulfa (Sulfonamide Allergy See Verified 04/06/18 07:28 Antibiotics) Comments trimethoprim [From Bactrim] Allergy See Verified 04/06/18 07:28 Comments lorazepam [From Ativan] AdvReac Mild Anxiety Verified 04/06/18 07:28 benztropine [From Cogentin] AdvReac See Verified 04/06/18 07:28 Comments ciprofloxacin [From Cipro] AdvReac See Verified 04/06/18 07:28 Comments onabotulinumtoxinA AdvReac See Verified 04/06/18 07:28 [From Botox] Comments sertraline [From Zoloft] AdvReac Headache Verified 04/06/18 07:28 sumatriptan [From Imitrex] AdvReac Agitated Verified 04/06/18 07:28 topiramate [From Topamax] AdvReac See Verified 04/06/18 07:28 Comments Constitutional: Denies: fever, chills ENT ED: Denies: throat pain, congestion Cardiovascular: Reports: chest pain Respiratory: Denies: cough, dyspnea, wheezes Gastrointestinal: Reports: nausea, vomiting, diarrhea. Denies: abdominal pain, constipation Genitourinary: Denies: urgency, dysuria Musculoskeletal: Denies: back pain, neck pain Integumentary: Denies: rash, abrasion Neurological: Reports: weakness, numbness, paresthesias, confusion. 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, other - Social History Smoking Status: Former smoker Smokeless Tobacco Status: No Alcohol use: Reports: none Drug use: Reports: none Physical Exam - General Limitations: no limitations General appearance: alert, in no apparent distress Course Vital Signs Temperature 98.3 F 07/20/18 04:00 Pulse Rate 119 07/20/18 04:00 Respiratory Rate 20 07/20/18 04:00 Blood Pressure 94/58 07/20/18 04:00 O2 Sat by Pulse Oximetry 98 07/20/18 04:00 Temperature 98.3 F 07/20/18 04:00 Pulse Rate 121 07/20/18 07:26 Respiratory Rate 18 07/20/18 07:26 Blood Pressure 115/57 07/20/18 07:26 O2 Sat by Pulse Oximetry 96 07/20/18 07:26 Oxygen Delivery Oxygen Delivery Room Air Medical Decision Making - Medical Records Medical records reviewed: Yes I reviewed the patient's medical records. - Lab Data Lab results reviewed: Yes I reviewed the patient's lab results. Result diagrams: 07/20/18 04:27 07/20/18 04:27 Lab Results 07/20/18 07/20/18 07/20/18 Range/Units 04:25 04:27 04:27 WBC 17.4 H (4.3-11.1) K/mcL RBC 4.07 (3.82-4.97) M/mcL Hgb 11.4 L (11.5-15.4) g/dL Hct 37.0 (35.3-44.9) % MCV 90.9 (83.0-100.0) fL MCH 28.0 (28.0-33.3) pg MCHC 30.8 L (31.6-35.5) g/dL RDW 14.9 H (11.5-14.5) % Plt Count 346 (140-400) K/mcL MPV 9.5 (9.4-12.4) fL Immature Gran % 0.7 (0-4) % Seg Neutrophils % 89.9 % Lymphocytes % 4.7 % Monocytes % 4.1 % Eosinophils % 0.3 % Basophils % 0.3 % Neutrophils # 15.6 H (1.6-8.9) K/mcL Lymphocytes # 0.8 (0.6-4.6) K/mcL Monocytes # 0.7 (0.0-1.3) K/mcL Eosinophils # 0.1 (0.0-0.6) K/mcL Basophils # 0.1 (0.0-0.2) K/mcL Sodium 139 (136-145) mEq/L Potassium 4.1 (3.5-5.1) mEq/L Chloride 108 H (98-107) mEq/L Carbon Dioxide 21 L (23-29) mEq/L BUN 22 H (6-20) mg/dL Creatinine 1.10 (0.60-1.20) mg/dL Est GFR ( Amer) > 60 (> 60) Est GFR (Non-Af Amer) 51 L (> 60) BUN/Creatinine Ratio 20 (6-26) Glucose 156 H (70-105) mg/dL Calculated Osmolality 295 (280-300) Calcium 9.0 (8.6-10.3) mg/dL Total Bilirubin 0.2 L (0.3-1.0) mg/dL Direct Bilirubin 0.1 (0.0-0.2) mg/dL Indirect Bilirubin 0.1 (0.0-1.2) mg/dL AST 31 (13-39) Units/L ALT 44 (7-52) Units/L Alkaline Phosphatase 166 H (34-104) Units/L Ammonia (16-53) mcmol/L Troponin I < 0.03 (< 0.04) ng/mL Serum Total Protein 6.5 (6.4-8.9) g/dL Albumin 3.8 (3.5-5.7) g/dL Globulin 2.7 (2.4-3.5) g/dL Albumin/Globulin Ratio 1.4 (1.1-2.2) Urine Color Yellow (Yellow) Urine Clarity Clear (Clear) Urine pH 5.5 (5.0-8.0) pH Units Ur Specific [place] 1.015 (1.010-1.025) Urine Protein Negative (Neg-Trace) mg/dL Urine Glucose (UA) Normal (Normal) mg/dL Urine Ketones Negative (Negative) mg/dL Urine Blood Negative (Negative) Urine Nitrite Negative (Negative) Urine Bilirubin Negative (Negative) Urine Urobilinogen Normal (Normal) mg/dL Ur Leukocyte Esterase Small H (Negative) Urine Microscopic RBC 0-3 (0-3) per hpf Urine Microscopic WBC 3-5 H (0-3) per hpf Ur Squamous Epith Cells Many H (None-Few) per lpf Urine Bacteria None Seen (None-Few) per hpf Hyaline Casts None Seen (None-Few) per lpf Ur Culture Indicated? NO. A (NO) Urine Opiates Screen (Ascsxa=004) ng/mL Ur Barbiturates Screen (Idgigh=272) ng/mL Ur Phencyclidine Scrn (Cutoff=25) ng/mL Ur Amphetamines Screen (Tmayzi=4735) ng/mL U Benzodiazepines Scrn (Qezrdm=428) ng/mL Urine Cocaine Screen (Cutoff= 300) ng/mL U Marijuana (THC) Screen (Cutoff = 50) ng/mL Ur Drug Screen Interp Ethyl Alcohol < 10 (Less than 10) mg/dL 07/20/18 07/20/18 Range/Units 04:27 07:38 WBC (4.3-11.1) K/mcL RBC (3.82-4.97) M/mcL Hgb (11.5-15.4) g/dL Hct (35.3-44.9) % MCV (83.0-100.0) fL MCH (28.0-33.3) pg MCHC (31.6-35.5) g/dL RDW (11.5-14.5) % Plt Count (140-400) K/mcL MPV (9.4-12.4) fL Immature Gran % (0-4) % Seg Neutrophils % % Lymphocytes % % Monocytes % % Eosinophils % % Basophils % % Neutrophils # (1.6-8.9) K/mcL Lymphocytes # (0.6-4.6) K/mcL Monocytes # (0.0-1.3) K/mcL Eosinophils # (0.0-0.6) K/mcL Basophils # (0.0-0.2) K/mcL Sodium (136-145) mEq/L Potassium (3.5-5.1) mEq/L Chloride (98-107) mEq/L Carbon Dioxide (23-29) mEq/L BUN (6-20) mg/dL Creatinine (0.60-1.20) mg/dL Est GFR ( Amer) (> 60) Est GFR (Non-Af Amer) (> 60) BUN/Creatinine Ratio (6-26) Glucose (70-105) mg/dL Calculated Osmolality (280-300) Calcium (8.6-10.3) mg/dL Total Bilirubin (0.3-1.0) mg/dL Direct Bilirubin (0.0-0.2) mg/dL Indirect Bilirubin (0.0-1.2) mg/dL AST (13-39) Units/L ALT (7-52) Units/L Alkaline Phosphatase (34-104) Units/L Ammonia 43 (16-53) mcmol/L Troponin I (< 0.04) ng/mL Serum Total Protein (6.4-8.9) g/dL Albumin (3.5-5.7) g/dL Globulin (2.4-3.5) g/dL Albumin/Globulin Ratio (1.1-2.2) Urine Color (Yellow) Urine Clarity (Clear) Urine pH (5.0-8.0) pH Units Ur Specific [place] (1.010-1.025) Urine Protein (Neg-Trace) mg/dL Urine Glucose (UA) (Normal) mg/dL Urine Ketones (Negative) mg/dL Urine Blood (Negative) Urine Nitrite (Negative) Urine Bilirubin (Negative) Urine Urobilinogen (Normal) mg/dL Ur Leukocyte Esterase (Negative) Urine Microscopic RBC (0-3) per hpf Urine Microscopic WBC (0-3) per hpf Ur Squamous Epith Cells (None-Few) per lpf Urine Bacteria (None-Few) per hpf Hyaline Casts (None-Few) per lpf Ur Culture Indicated? (NO) Urine Opiates Screen Negative (Wpmirj=143) ng/mL Ur Barbiturates Screen Negative (Uhxhid=530) ng/mL Ur Phencyclidine Scrn Negative (Cutoff=25) ng/mL Ur Amphetamines Screen Negative (Twfrqt=5980) ng/mL U Benzodiazepines Scrn Negative (Pkvnjb=488) ng/mL Urine Cocaine Screen Negative (Cutoff= 300) ng/mL U Marijuana (THC) Screen Negative (Cutoff = 50) ng/mL Ur Drug Screen Interp See Below Ethyl Alcohol (Less than 10) mg/dL - Radiology Data Radiology results reviewed: Yes I reviewed the patient's radiology results. Chest X-Ray 07/20/18 04:25 IMPRESSION: No acute disease. D/ / José Oliveira MD / José Oliveira MD Interpreting Provider: José Oliveira MD Head CT 07/20/18 04:26 IMPRESSION: No acute intracranial abnormality. D/ / Tang Fernandez / Tang Fernandez Interpreting Provider: Tang Fernandez - EKG Data EKG #1 EKG attestation: Yes I reviewed and interpreted this EKG. EKG results narrative: EKG shows sinus tachycardia with ventricular rate of 117. Incomplete right bundle branch block. No significant ST segment elevation or depression. Attestation Statement - Attestation Attestation: ISkyler MD, personally evaluated this patient and discussed their management with the resident physician. I reviewed the resident's note and agree with the documented findings, medical decision making, and plan of care. 57-year-old female presents to the emergency department by EMS with a complaint of weakness of the left side of her body for 4 days prior to arrival. She also complains of a tremor of her left hand and states she has had trouble using it due to the tremor. She complains that when she tries to walk that her knees just buckled and gave out and she has been falling frequently. She fell tonight and was unable to get up. She states she lives with her parents but they are elderly and cannot really help her. She denies any injury from the fall. She states that she has a history of migraines and sometimes she gets these symptoms related to the headaches. She also complains of some left-sided chest pain which started yesterday and has been constant since onset. She describes the pain as sharp. On examination patient is a well-developed well-nourished female in no acute dis tress. She is alert and oriented 3. There is no cyanosis or diaphoresis. Breath sounds are clear and equal bilaterally. Heart regular rate and rhythm. Abdomen soft and nontender with normal bowel sounds. No gross focal neurological deficits. Patient does seem to have a coarse intention tremor of her left hand which seems to resolve when she is distracted. EKG shows sinus tachycardia with no acute ischemic changes. Head CT negative. Chest x-ray negative. Labs reviewed. At shift change patient is signed out to the oncoming dayshift team, Dr. Marko Harrison and Dr. Nestor Jessica.
[2018-07-20] MEDS ORDERED: Naloxone 0.4 MG/ML INJ IVP PRN (09:09)
[2018-07-20] MEDS ORDERED: Ondansetron ODT 4 MG TAB.RAPDIS SL PRN (09:09)
[2018-07-20] MEDS ORDERED: 0.9 % Sodium Chloride 1,000 ML IVC SCH (09:15)
[2018-07-20] MEDS ORDERED: hydrOXYzine pamoate 25 MG CAPSULE PO PRN (10:11)
[2018-07-20] MEDS: *HR* HYDROcodone/Acet 5/325 mg TABLET PO PRN ×3 (10:30→22:46)
--- NOTE | 2018-07-20 11:41 | Emergency Department Note ---
Disposition Clinical Impression: Weakness, Frequent falls Chest pain Qualifiers: Chest pain type: unspecified Qualified Code(s): R07.9 - Chest pain, unspecified Disposition: Admitted As Inpatient Condition: Fair General Adult HPI - General Chief complaint: ED General Medical Stated complaint: LT Body Pain Time Seen by Provider: 07/20/18 04:23 Source: patient, EMS Mode of arrival: EMS Limitations: no limitations Nursing Notes Reviewed: Yes Vital Signs Reviewed: Yes - History of Present Illness Pain Scale: 5 - Related Data Home Medications Medication Instructions Recorded Confirmed Aspirin [Lo-Dose Aspirin EC] 81 mg PO DAILY 03/13/18 03/13/18 Chlorpromazine HCl 300 mg PO HS 03/13/18 03/13/18 Doxepin HCl 150 mg PO HS 03/13/18 03/13/18 Etodolac 400 mg PO BID 03/13/18 03/13/18 PARoxetine HCl [Paroxetine HCl] 60 mg PO QAM 03/13/18 03/13/18 Promethazine HCl 12.5 mg PO DAILY PRN 03/13/18 03/13/18 Ropinirole HCl [Requip] 1 mg PO HS 03/13/18 03/13/18 hydrOXYzine HCl [Hydroxyzine HCl] 25 mg PO BID PRN 03/13/18 03/13/18 Allergies Allergy/AdvReac Type Severity Reaction Status Date / Time sulfamethoxazole Allergy Intermediate See Verified 04/06/18 07:28 [From Bactrim] Comments metoclopramide [From Reglan] Allergy Mild Itching Verified 04/06/18 07:28 amitriptyline Allergy Itching Verified 04/06/18 07:28 Sulfa (Sulfonamide Allergy See Verified 04/06/18 07:28 Antibiotics) Comments trimethoprim [From Bactrim] Allergy See Verified 04/06/18 07:28 Comments lorazepam [From Ativan] AdvReac Mild Anxiety Verified 04/06/18 07:28 benztropine [From Cogentin] AdvReac See Verified 04/06/18 07:28 Comments ciprofloxacin [From Cipro] AdvReac See Verified 04/06/18 07:28 Comments onabotulinumtoxinA AdvReac See Verified 04/06/18 07:28 [From Botox] Comments sertraline [From Zoloft] AdvReac Headache Verified 04/06/18 07:28 sumatriptan [From Imitrex] AdvReac Agitated Verified 04/06/18 07:28 topiramate [From Topamax] AdvReac See Verified 04/06/18 07:28 Comments Constitutional: Denies: fever, chills ENT ED: Denies: throat pain, congestion Cardiovascular: Reports: chest pain Respiratory: Denies: cough, dyspnea, wheezes Gastrointestinal: Reports: nausea, vomiting, diarrhea. Denies: abdominal pain, constipation Genitourinary: Denies: urgency, dysuria Musculoskeletal: Denies: back pain, neck pain Integumentary: Denies: rash, abrasion Neurological: Reports: weakness, numbness, paresthesias, confusion. Denies: headache Psychiatric: Reports: anxiety, depression Endocrine: Denies: fatigue, heat or cold intolerance Hematological/Lymphatic: Denies: easy bleeding, easy bruising Allergic/Immunologic: Denies: facial swelling, urticaria Past Medical History - Past Medical History Medical history: Reports: CHF, COPD, migraine Surgical history: Reports: , cholecystectomy, herniorrhaphy, hysterectomy Psychiatric history: Reports: anxiety, bipolar, depression [facility] history: Reports: no [facility] history, other - Social History Smoking Status: Former smoker Smokeless Tobacco Status: No Alcohol use: Reports: none Drug use: Reports: none Physical Exam - General Limitations: no limitations General appearance: alert, in no apparent distress Course Vital Signs Temperature 98.3 F 07/20/18 04:00 Pulse Rate 119 07/20/18 04:00 Respiratory Rate 20 07/20/18 04:00 Blood Pressure 94/58 07/20/18 04:00 O2 Sat by Pulse Oximetry 98 07/20/18 04:00 Temperature 98.2 F 07/20/18 11:25 Pulse Rate 120 07/20/18 11:25 Respiratory Rate 16 07/20/18 11:25 Blood Pressure 112/61 07/20/18 11:25 O2 Sat by Pulse Oximetry 97 07/20/18 11:25 Oxygen Delivery Oxygen Delivery Room Air Medical Decision Making - MDM Narrative Medical decision making narrative: 57-year-old female received in signout set of my shift pending reevaluation and disposition. Patient states that she had multiple episodes of syncope yesterday, she had complained of chest pain throughout the night and weakness in the left upper extremity. Patient denied diaphoresis. She has not vomited. Initial troponin was negative. She is mildly tachycardic on evaluation in the emergency department however she states she has been tachycardic over the past month. Patient will be admitted to the hospitalist for further care and evaluation of her chest pain and syncopal episodes. - Medical Records Medical records reviewed: Yes I reviewed the patient's medical records. - Lab Data Lab results reviewed: Yes I reviewed the patient's lab results. Result diagrams: 07/20/18 04:27 07/20/18 04:27 Lab Results 07/20/18 07/20/18 07/20/18 Range/Units 04:25 04:27 04:27 WBC 17.4 H (4.3-11.1) K/mcL RBC 4.07 (3.82-4.97) M/mcL Hgb 11.4 L (11.5-15.4) g/dL Hct 37.0 (35.3-44.9) % MCV 90.9 (83.0-100.0) fL MCH 28.0 (28.0-33.3) pg MCHC 30.8 L (31.6-35.5) g/dL RDW 14.9 H (11.5-14.5) % Plt Count 346 (140-400) K/mcL MPV 9.5 (9.4-12.4) fL Immature Gran % 0.7 (0-4) % Seg Neutrophils % 89.9 % Lymphocytes % 4.7 % Monocytes % 4.1 % Eosinophils % 0.3 % Basophils % 0.3 % Neutrophils # 15.6 H (1.6-8.9) K/mcL Lymphocytes # 0.8 (0.6-4.6) K/mcL Monocytes # 0.7 (0.0-1.3) K/mcL Eosinophils # 0.1 (0.0-0.6) K/mcL Basophils # 0.1 (0.0-0.2) K/mcL Sodium 139 (136-145) mEq/L Potassium 4.1 (3.5-5.1) mEq/L Chloride 108 H (98-107) mEq/L Carbon Dioxide 21 L (23-29) mEq/L BUN 22 H (6-20) mg/dL Creatinine 1.10 (0.60-1.20) mg/dL Est GFR ( Amer) > 60 (> 60) Est GFR (Non-Af Amer) 51 L (> 60) BUN/Creatinine Ratio 20 (6-26) Glucose 156 H (70-105) mg/dL Calculated Osmolality 295 (280-300) Calcium 9.0 (8.6-10.3) mg/dL Total Bilirubin 0.2 L (0.3-1.0) mg/dL Direct Bilirubin 0.1 (0.0-0.2) mg/dL Indirect Bilirubin 0.1 (0.0-1.2) mg/dL AST 31 (13-39) Units/L ALT 44 (7-52) Units/L Alkaline Phosphatase 166 H (34-104) Units/L Ammonia (16-53) mcmol/L Troponin I < 0.03 (< 0.04) ng/mL Serum Total Protein 6.5 (6.4-8.9) g/dL Albumin 3.8 (3.5-5.7) g/dL Globulin 2.7 (2.4-3.5) g/dL Albumin/Globulin Ratio 1.4 (1.1-2.2) Urine Color Yellow (Yellow) Urine Clarity Clear (Clear) Urine pH 5.5 (5.0-8.0) pH Units Ur Specific [place] 1.015 (1.010-1.025) Urine Protein Negative (Neg-Trace) mg/dL Urine Glucose (UA) Normal (Normal) mg/dL Urine Ketones Negative (Negative) mg/dL Urine Blood Negative (Negative) Urine Nitrite Negative (Negative) Urine Bilirubin Negative (Negative) Urine Urobilinogen Normal (Normal) mg/dL Ur Leukocyte Esterase Small H (Negative) Urine Microscopic RBC 0-3 (0-3) per hpf Urine Microscopic WBC 3-5 H (0-3) per hpf Ur Squamous Epith Cells Many H (None-Few) per lpf Urine Bacteria None Seen (None-Few) per hpf Hyaline Casts None Seen (None-Few) per lpf Ur Culture Indicated? NO. A (NO) Urine Opiates Screen (Zhaxat=375) ng/mL Ur Barbiturates Screen (Wphjod=275) ng/mL Ur Phencyclidine Scrn (Cutoff=25) ng/mL Ur Amphetamines Screen (Uyehsb=7417) ng/mL U Benzodiazepines Scrn (Pevghp=263) ng/mL Urine Cocaine Screen (Cutoff= 300) ng/mL U Marijuana (THC) Screen (Cutoff = 50) ng/mL Ur Drug Screen Interp Ethyl Alcohol < 10 (Less than 10) mg/dL 07/20/18 07/20/18 Range/Units 04:27 07:38 WBC (4.3-11.1) K/mcL RBC (3.82-4.97) M/mcL Hgb (11.5-15.4) g/dL Hct (35.3-44.9) % MCV (83.0-100.0) fL MCH (28.0-33.3) pg MCHC (31.6-35.5) g/dL RDW (11.5-14.5) % Plt Count (140-400) K/mcL MPV (9.4-12.4) fL Immature Gran % (0-4) % Seg Neutrophils % % Lymphocytes % % Monocytes % % Eosinophils % % Basophils % % Neutrophils # (1.6-8.9) K/mcL Lymphocytes # (0.6-4.6) K/mcL Monocytes # (0.0-1.3) K/mcL Eosinophils # (0.0-0.6) K/mcL Basophils # (0.0-0.2) K/mcL Sodium (136-145) mEq/L Potassium (3.5-5.1) mEq/L Chloride (98-107) mEq/L Carbon Dioxide (23-29) mEq/L BUN (6-20) mg/dL Creatinine (0.60-1.20) mg/dL Est GFR ( Amer) (> 60) Est GFR (Non-Af Amer) (> 60) BUN/Creatinine Ratio (6-26) Glucose (70-105) mg/dL Calculated Osmolality (280-300) Calcium (8.6-10.3) mg/dL Total Bilirubin (0.3-1.0) mg/dL Direct Bilirubin (0.0-0.2) mg/dL Indirect Bilirubin (0.0-1.2) mg/dL AST (13-39) Units/L ALT (7-52) Units/L Alkaline Phosphatase (34-104) Units/L Ammonia 43 (16-53) mcmol/L Troponin I (< 0.04) ng/mL Serum Total Protein (6.4-8.9) g/dL Albumin (3.5-5.7) g/dL Globulin (2.4-3.5) g/dL Albumin/Globulin Ratio (1.1-2.2) Urine Color (Yellow) Urine Clarity (Clear) Urine pH (5.0-8.0) pH Units Ur Specific [place] (1.010-1.025) Urine Protein (Neg-Trace) mg/dL Urine Glucose (UA) (Normal) mg/dL Urine Ketones (Negative) mg/dL Urine Blood (Negative) Urine Nitrite (Negative) Urine Bilirubin (Negative) Urine Urobilinogen (Normal) mg/dL Ur Leukocyte Esterase (Negative) Urine Microscopic RBC (0-3) per hpf Urine Microscopic WBC (0-3) per hpf Ur Squamous Epith Cells (None-Few) per lpf Urine Bacteria (None-Few) per hpf Hyaline Casts (None-Few) per lpf Ur Culture Indicated? (NO) Urine Opiates Screen Negative (Dbwrfs=085) ng/mL Ur Barbiturates Screen Negative (Tanyxq=161) ng/mL Ur Phencyclidine Scrn Negative (Cutoff=25) ng/mL Ur Amphetamines Screen Negative (Qqxiyy=7982) ng/mL U Benzodiazepines Scrn Negative (Fwficv=824) ng/mL Urine Cocaine Screen Negative (Cutoff= 300) ng/mL U Marijuana (THC) Screen Negative (Cutoff = 50) ng/mL Ur Drug Screen Interp See Below Ethyl Alcohol (Less than 10) mg/dL - Radiology Data Radiology results reviewed: Yes I reviewed the patient's radiology results.
[2018-07-20] MEDS ORDERED: Acetaminophen 325 MG TABLET PO PRN (14:08)
[2018-07-20] MEDS ORDERED: Nitroglycerin 0.4 MG TAB.SUBL SL PRN (14:08)
--- NOTE | 2018-07-20 15:40 | Internal Med History&Physical ---
Date of Encounter: 07/20/18 Time of Encounter: 11:00 Internal Medicine - H&P: HPI Chief complaint: Chest pain Admitted From: Emergency Dept Plans for Post Hospital Care: Home History of present illness: Ms. Montoya is a 57 year old female with medical history of depression, bipolar disorder, hypertension, diastolic CHF, multiple admissions for syncope and hypertension who presented to ER with substernal and left chest wall pain radiating to her shoulder and neck. Pt stated she got pain while she was resting, 7/10 in severity, sharp pain and intermittent. It does associated with nausea. She also stated y/d evening while she was about to go to restroom she felt lightheadedness and passed out. Denied any head trauma. Past Med Surg Social Fam HX - Past Medical History Medical history: CHF, COPD, migraine Additional medical history: pt denies any history Psychiatric history: anxiety, bipolar, depression - Past Surgical History Surgical History: , cholecystectomy, herniorrhaphy, hysterectomy Additional surgical history: Lung BX- right. - Social History Smoking Status: Former smoker Smokeless Tobacco Status: No Alcohol use: none Drug use: none - Family History Father Living Status: Still Living Hx Family Cardiac Disorders: Yes (heart disease) Mother Adopted: No Family Member Ethnicity: Non- Living Status: Still Living Hx Family Cardiac Disorders: No Hx Family Respiratory Disorders: Yes (short of breath) Hx Family Cancer: No Hx Family GI Disorders: No Hx Family Endocrine Disorder: No Hx Family Neuromuscular Disorders: No Hx Family Neurologic Disorders: No Hx Family HEENT Disorders: No Hx Family Autoimmune Disorders: Yes (hyperthyroid) Grandfather Adopted: No Living Status: Hx Family Cardiac Disorders: Yes Hx Family Cancer: Yes Internal Medicine - H&P: Meds Aspirin [Lo-Dose Aspirin EC] 81 mg PO DAILY 03/13/18 [History] Chlorpromazine HCl 300 mg PO HS 03/13/18 [History] Doxepin HCl 150 mg PO HS 03/13/18 [History] Etodolac 400 mg PO BID 03/13/18 [History] PARoxetine HCl [Paroxetine HCl] 60 mg PO QAM 03/13/18 [History] Promethazine HCl 12.5 mg PO DAILY PRN 03/13/18 [History] Ropinirole HCl [Requip] 1 mg PO HS 03/13/18 [History] hydrOXYzine HCl [Hydroxyzine HCl] 25 mg PO BID PRN 03/13/18 [History] Allergy/AdvReac Type Severity Reaction Status Date / Time sulfamethoxazole Allergy Intermediate See Verified 04/06/18 07:28 [From Bactrim] Comments metoclopramide [From Reglan] Allergy Mild Itching Verified 04/06/18 07:28 amitriptyline Allergy Itching Verified 04/06/18 07:28 Sulfa (Sulfonamide Allergy See Verified 04/06/18 07:28 Antibiotics) Comments trimethoprim [From Bactrim] Allergy See Verified 04/06/18 07:28 Comments lorazepam [From Ativan] AdvReac Mild Anxiety Verified 04/06/18 07:28 benztropine [From Cogentin] AdvReac See Verified 04/06/18 07:28 Comments ciprofloxacin [From Cipro] AdvReac See Verified 04/06/18 07:28 Comments onabotulinumtoxinA AdvReac See Verified 04/06/18 07:28 [From Botox] Comments sertraline [From Zoloft] AdvReac Headache Verified 04/06/18 07:28 sumatriptan [From Imitrex] AdvReac Agitated Verified 04/06/18 07:28 topiramate [From Topamax] AdvReac See Verified 04/06/18 07:28 Comments All Systems PM: A 10-system review of systems was performed and is negative for pertinent findings except as documented above in the HPI. Review of systems: All the systems are reviewed everything is benign except the systems and symptoms I mentioned in the history of present illness - Constitutional Vitals: Temp Pulse Resp BP Pulse Ox 98.6 F 95 16 114/70 96 07/20/18 15:09 07/20/18 15:09 07/20/18 15:09 07/20/18 15:09 07/20/18 15:09 General appearance: Present: cooperative, A&O X 3, no acute distress, answers questions appropriately Exam: See below - Head Head exam: Present: atraumatic, normal inspection - Neck Neck exam general surgery: Present: supple - Respiratory Respiratory exam: Present: decreased breath sounds. Absent: rales, respiratory distress, rhonchi, wheezes - Cardiovascular Cardiovascular exam: Present: RRR, +S1, +S2. Absent: tachycardia - GI/Abdominal GI/Abdominal exam: Present: normal bowel sounds, soft. Absent: rebound, rigid, tenderness - Extremities Exam Extremities exam: Absent: calf tenderness, pedal edema, tenderness - Back Exam Back exam: Absent: CVA tenderness (L), CVA tenderness (R) - Neurological Exam Neurological exam: Present: alert, oriented X3, strengths equal and symetr throughout - Psychiatric Psychiatric exam: Present: anxious - Skin Skin exam: Absent: rash Internal Med - H&P Results - Labs CBC & Chem 7: 07/20/18 04:27 07/20/18 04:27 Labs: Short CBC 07/20/18 Range/Units 04:27 WBC 17.4 H (4.3-11.1) K/mcL Hgb 11.4 L (11.5-15.4) g/dL Hct 37.0 (35.3-44.9) % Plt Count 346 (140-400) K/mcL Neutrophils # 15.6 H (1.6-8.9) K/mcL BMP 07/20/18 04:27 Sodium 139 Potassium 4.1 Chloride 108 H Carbon Dioxide 21 L BUN 22 H Creatinine 1.10 Glucose 156 H Calcium 9.0 Cardiac Enzymes 07/20/18 07/20/18 Range/Units 04:27 10:30 Troponin I < 0.03 < 0.03 (< 0.04) ng/mL Liver Function 07/20/18 Range/Units 04:27 Total Bilirubin 0.2 L (0.3-1.0) mg/dL Direct Bilirubin 0.1 (0.0-0.2) mg/dL AST 31 (13-39) Units/L ALT 44 (7-52) Units/L Alkaline Phosphatase 166 H (34-104) Units/L Albumin 3.8 (3.5-5.7) g/dL Urine 07/20/18 Range/Units 04:25 Urine Color Yellow (Yellow) Urine Clarity Clear (Clear) Urine pH 5.5 (5.0-8.0) pH Units Ur Specific [place] 1.015 (1.010-1.025) Urine Protein Negative (Neg-Trace) mg/dL Urine Glucose (UA) Normal (Normal) mg/dL - Impressions ITS Impressions Chest X-Ray 07/20/18 04:25 IMPRESSION: No acute disease. D/ / José Oliveira MD / José Oliveira MD Interpreting Provider: José Oliveira MD Head CT 07/20/18 04:26 IMPRESSION: No acute intracranial abnormality. D/ / Tang Sessions / Tang Sessions Interpreting Provider: aTng Sessions - Assessment and Plan (1) Chest pain Current Visit: Yes Status: Acute Assessment and plan: Will admit the pt into Tele for observation Will place pt on cardiac exercise physiologist check serial troponin so far negative troponin EKG reviewed - showed NSR @ 92, Chronic TWI, no change from previous EKG will start pt on ASA and Nitro PRN for pain Will check FLP in AM She had a normal stress test in 03/15 Card consulted for further eval NPO after mid night Qualifiers: Chest pain type: unspecified Qualified Code(s): R07.9 - Chest pain, unspecified (2) Syncope Current Visit: Yes Status: Acute Assessment and plan: Pt's Syncope seems to be more like vasovagal reaction / ortho static however still need to r/o ACS vs Arrhythmia will place the pt on cardiac exercise physiologist check serial troponin so far negative trop will start ASA Her 2 D Echo from 12/13 preserved LVEF, mild left ventricle and diastolic dysfunction Carotid doppler from 12/13 showed Left proximal ICA has moderate stenosis @ 40- 59% Will repeat 2 D echo and Carotid Doppler in AM Will check FLP in AM Will check ortho stat vitals Started on IV fluids Qualifiers: Syncope type: unspecified Qualified Code(s): R55 - Syncope and collapse (3) Frequent falls Current Visit: Yes Status: Acute (4) Anxiety Current Visit: No Status: Chronic Assessment and plan: resumed all home meds on Ativan PRN (5) Tobacco dependence Current Visit: No Status: Chronic Assessment and plan: Counseled to quit smoking - Time Spent With Patient Total time spent is greater than 50% in coordination of care (as documented) at patient's floor/unit and/or counseling patient:
[2018-07-20] MEDS: *HR* LORazepam 0.5 MG TABLET PO PRN (16:40)
--- NOTE | 2018-07-20 17:23 | Electrocardiograph Report ---
[address] [place], [place] [address] Test Date: 2018-07-20 Pat Name: Angela Montoya Department: [id number] Room: 3B44 Gender: F Glass [employer]: : 1960 Requested By: Carmen Torres Order Number: [id number] Reading MD: Griselda Fournier Measurements Intervals [place] Rate: 117 P: 52 [place]: 173 QRS: 25 QRSD: 102 T: 2 QT: 336 QTc: 469 Interpretive Statements Sinus tachycardia Consider right atrial enlargement Abnormal R-wave progression, early transition Borderline repolarization abnormality Electronically Signed On 07-20-2018 17:21:28 EDT by Griselda Fournier
[2018-07-20] MEDS ORDERED: rOPINIRole 1 MG TABLET PO SCH (21:00)
[2018-07-20] MEDS ORDERED: chlorproMAZINE 25 MG TABLET PO SCH (21:00)
[2018-07-21] MEDS: *HR* HYDROcodone/Acet 5/325 mg TABLET PO PRN ×2 (05:30→12:45)
[2018-07-21] MEDS ORDERED: Aspirin Enteric Coated 81 MG Tablet PO SCH (09:00)
[2018-07-21] MEDS: *HR* LORazepam 0.5 MG TABLET PO PRN ×2 (09:34→16:15)
[2018-07-21] MEDS ORDERED: Pantoprazole 40 MG VIAL IVP ONE (09:58)
--- NOTE | 2018-07-21 10:10 | Cardiology Consult Note ---
<Marco Antonio Hylton - Last Filed: 07/21/18 10:36> Date of Encounter: 07/21/18 Time of Encounter: 09:30 Assessment and Plan (1) Chest pain Current Visit: Yes Status: Acute Likely 2/2 GERD EKG without acute changes, T wave inversions are unchanged and can be seen on EKGs from 04/2018 and 02/2018 as well Troponins x3 negative Stress test from 02/2018 was negative Echo from 02/2018 showed LVEF 60-65% with mild LV diastolic dysfunction CXR negative EGD from 03/16/2018 showed non-bleeding esophageal ulcers and gastritis. Pt did not have follow up EGD as outpatient since she did not have a ride to the appointment. Pt admits to non-compliance with daily PPI and carafate. Suspicion of cardiac cause of chest pain is very low. Recommend follow up with GI. Educated pt on importance of medication compliance Qualifiers: Chest pain type: other chest pain Qualified Code(s): R07.89 - Other chest pain; R07.8 - Other chest pain (2) GERD (gastroesophageal reflux disease) Current Visit: Yes Status: Acute Chest pain associated with "rising and burning" sensation IV protonix today Daily PPI and BID carafate as recommended by GI from 02/2018 Qualifiers: Esophagitis presence: with esophagitis Qualified Code(s): K21.0 - Gastro- esophageal reflux disease with esophagitis (3) Syncope Current Visit: Yes Status: Acute Suspect vasovagal in nature CT head negative No significant events noted on telemetry overnight Negative trops x3 Repeat carotid dopplers per primary Qualifiers: Syncope type: vasovagal syncope Qualified Code(s): R55 - Syncope and collapse Discussion w patient/family: The assessment and plan as outlined above was discussed with the patient and/or family members who expressed understanding and agreement. All questions were answered. Thank you for involving us in the care of your patient. Please call with any questions. History of Present Illness Consult date: 07/20/18 Requesting physician: Nevaeh Gaviria Consult reason: Chest pain Chief complaint: Chest Pain History of present illness: Ms. Montoya is a 57 year old female with PMH of depression, bipolar disorder, HTN, and diastolic CHF. She originally presented to the ED with complaints of substernal and left chest wall pain radiating into her jaw and down into her right hip. She describes the pain as sharp and intermittent. Accompanied by nausea and a sensation of burning rising in her chest. Describes that she feels like she is about to vomit and can taste it, but does not actually vomit. She also described an episode of pre-syncope while attempting to have a bowel movement. CXR from the ED was negative for acute abnormalities. CT head was negative as well. Of note she underwent echocardiogram and cardiac stress testing in February of 2018. Echo revealed LVEF 60-65% with mild LV diastolic dysfunction. Pharmacologic stress test was normal. Pt underwent EGD with Dr. Alvarado on 03/16/2018 which revealed non-bleeding esophageal ulcers and gastritis. Repeat EGD was recommended in 6 weeks. Pt seen and examined at bedside. Pt states she continues to have pain accompanied by some nausea. Denies any shortness of breath, weakness, dizziness, edema, or headache. States she has been told previously she has GERD, and reports that she was to have outpatient EGD and colonoscopy with GI, but was unable to have this performed since her father became ill and could not drive her to the appointments. Also denies taking daily PPI. Does state she take Carafate with meals on occasion. Past Med Surg Social Fam HX - Past Medical History Medical history: CHF, COPD, migraine Additional medical history: pt denies any history Psychiatric history: anxiety, bipolar, depression - Past Surgical History Surgical History: , cholecystectomy, herniorrhaphy, hysterectomy Additional surgical history: Lung BX- right. - Social History Smoking Status: Former smoker Smokeless Tobacco Status: No Alcohol use: none Drug use: none - Family History Father Living Status: Still Living Hx Family Cardiac Disorders: Yes (heart disease) Mother Adopted: No Family Member Ethnicity: Non- Living Status: Still Living Hx Family Cardiac Disorders: No Hx Family Respiratory Disorders: Yes (short of breath) Hx Family Cancer: No Hx Family GI Disorders: No Hx Family Endocrine Disorder: No Hx Family Neuromuscular Disorders: No Hx Family Neurologic Disorders: No Hx Family HEENT Disorders: No Hx Family Autoimmune Disorders: Yes (hyperthyroid) Grandfather Adopted: No Living Status: Hx Family Cardiac Disorders: Yes Hx Family Cancer: Yes Medications and Allergies Aspirin [Lo-Dose Aspirin EC] 81 mg PO DAILY 03/13/18 [History] Chlorpromazine HCl 300 mg PO HS 03/13/18 [History] Doxepin HCl 150 mg PO HS 03/13/18 [History] PARoxetine HCl [Paroxetine HCl] 60 mg PO QAM 03/13/18 [History] Ropinirole HCl [Requip] 1 mg PO HS 03/13/18 [History] hydrOXYzine HCl [Hydroxyzine HCl] 25 mg PO BID PRN 03/13/18 [History] Prochlorperazine Maleate [Compazine] 5 mg PO DAILY 07/20/18 [History] Tizanidine HCl 2 mg PO TID 07/20/18 [History] Allergy/AdvReac Type Severity Reaction Status Date / Time sulfamethoxazole Allergy Intermediate Blister Verified 07/20/18 20:55 [From Bactrim] metoclopramide [From Reglan] Allergy Mild Itching Verified 07/20/18 20:55 amitriptyline Allergy Itching Verified 07/20/18 20:55 Sulfa (Sulfonamide Allergy Blister Verified 07/20/18 20:55 Antibiotics) trimethoprim [From Bactrim] Allergy Blister Verified 07/20/18 20:55 lorazepam [From Ativan] AdvReac Mild Anxiety Verified 07/20/18 20:55 benztropine [From Cogentin] AdvReac See Verified 07/20/18 20:55 Comments ciprofloxacin [From Cipro] AdvReac Blister Verified 07/20/18 20:55 onabotulinumtoxinA AdvReac See Verified 07/20/18 20:55 [From Botox] Comments sertraline [From Zoloft] AdvReac Headache Verified 07/20/18 20:55 sumatriptan [From Imitrex] AdvReac Agitated Verified 07/20/18 20:55 topiramate [From Topamax] AdvReac See Verified 07/20/18 20:55 Comments All Systems Review: The remainder of the systems were reviewed and are negative - Constitutional Constitutional: weakness, no chills, no fever(s), no night sweats, no snoring - EENT Eyes: no blurred vision, no loss of vision - Cardiovascular Cardiovascular: chest pain at rest, no chest pain with exertion, no diaphoresis, no dyspnea at rest, no dyspnea on exertion, no lightheadedness, no palpitations - Respiratory Respiratory: no cough, no dyspnea, no wheezing - Gastrointestinal Gastrointestinal: nausea, no abdominal pain, no constipation, no diarrhea, no melena - Genitourinary Genitourinary: no dysuria, no hematuria - Musculoskeletal Musculoskeletal: no arthralgias, no myalgias - Integumentary Integumentary: no erythema, no rash, no unusual bruising - Neurological Neurological: no dizziness, no numbness, no syncope, no tingling - Hematological/Lymphatic Hematologic/Lymphatic: no easy bleeding, no easy bruising Physical Examination Vital Signs, Last 4 Hours Temp Pulse Resp BP Pulse Ox 07/21/18 06:29 97.8 F 65 18 109/78 95 General: Conversant, No Apparent Distress HEENT: Atraumatic, Normocephaly, Mucus Membranes Moist Cardiac: Reg Rate and Rhythm, Normal S1 and S2, No Murmur Lungs: Normal Breath Sounds, No Wheeze, Rales, Rhonchi Neuro: Alert and responsive, No focal deficits noted Abdomen: Soft, Other (TTP of epigastrium, also states "I feel that rising burning again" ) Skin: No rashes noted on visualized skin Musculoskeletal: No Chest Wall Tenderness Extremities: No Clubbing, No Cyanosis, No Edema, Normal Pulses Results 07/20/18 04:27 07/20/18 04:27 Lab Results 07/20/18 07/20/18 10:30 16:26 Troponin I < 0.03 < 0.03 - Imaging and Cardiology Chest Xray: report reviewed, image reviewed - EKG Interpretation EKG results cardiology: personally reviewed, normal ECG, sinus rhythm, other (T wave inversion are unchanged when compared to EKGs from 04/2018 and 02/2018) Consult Discharge Plan - Plan Referrals: Iman Monae CNP [Primary Care Provider] - 07/27/18 10:30 am <Griselda Fournier - Last Filed: 07/21/18 15:02> Date of Encounter: 07/21/18 - Attending Attestation I examined this patient and my medical decision-making was reviewed with the Resident Physician. I agree with the documented findings, disposition and treatment plan as described. Ms. Montoya presents with atypical chest, back, epigastric and neck pain. Cardiac workup negative - troponins negative x3, ECG without new or acute jae nges. Stress testing from February 2018 negative for ischemia or infarct. Echo from November 2017 normal LVEF. On exam, patient has mid epigastric tenderness to palpation. Recent EGD demonstrated gastric ulcers and gastritis. Etiology of patient's symptoms does not appear cardiac at this time. Consider GI consultation. We will sign off. Please call with questions. Assessment and Plan Discussion w patient/family: The assessment and plan as outlined above was discussed with the patient and/or family members who expressed understanding and agreement. All questions were answered. Thank you for involving us in the care of your patient. Please call with any questions. History of Present Illness History of present illness: Ms. Montoya is a 57 year old female All Systems Review: The remainder of the systems were reviewed and are negative Physical Examination Vital Signs, Last 4 Hours Temp Pulse Resp BP Pulse Ox 07/21/18 11:46 97.9 F 82 17 107/73 94 Results 07/20/18 04:27 07/20/18 04:27 Lab Results 07/20/18 16:26 Troponin I < 0.03
[2018-07-21 11:47] VITALS: BP 107/73
--- NOTE | 2018-07-21 15:48 | Discharge Summary ---
- NOTES TO OUTPATIENT PROVIDER Notes to Outpatient Provider: f/u with PCP in one week. f/u with Cardiology Dr. Fournier in 2 weeks. Orders not resulted at time of discharge: Pending orders 07/21/18 08:48 EV carotid duplex imaging BI Routine Date of Encounter: 07/21/18 Time of Encounter: 15:44 - Discharge Diagnosis (1) Chest pain Priority: Primary Status: Acute Qualifiers: Chest pain type: other chest pain Qualified Code(s): R07.89 - Other chest pain; R07.8 - Other chest pain (2) Syncope Priority: Primary Status: Acute Qualifiers: Syncope type: vasovagal syncope Qualified Code(s): R55 - Syncope and collapse (3) GERD (gastroesophageal reflux disease) Priority: Secondary Status: Acute Qualifiers: Esophagitis presence: with esophagitis Qualified Code(s): K21.0 - Gastro- esophageal reflux disease with esophagitis (4) Tobacco abuse Priority: Secondary Status: Chronic (5) Anxiety Priority: Secondary Status: Chronic Hospital course: Ms. Montoya is a 57 year old female with medical history of depression, bipolar disorder, hypertension, diastolic CHF, multiple admissions for syncope and hypertension who presented to ER with substernal and left chest wall pain radiating to her shoulder and neck. Pt stated she got pain while she was resting, 7/10 in severity, sharp pain and intermittent. It does associated with nausea. She also stated y/d evening while she was about to go to restroom she felt lightheadedness and passed out. Denied any head trauma. She was admitted in the hospital and placed on cardiac cath lab radiology technologist. Her serial troponin came back is negative. She had negative, normal stress test in 02/2018. Patient was evaluated by coordinator hotels who thinks she might have atypical chest pain and also she have possible GERD. Cardiology recommend to start her on PPI and Carafate for now. If pt still have frequent chest pain recommend to f/u with Cardiology as an out pt for further work up. Her syncope seems to be due to vaso vagal reaction. No acute changes noticed on cardiac cath lab radiology technologist. So will d/c her home in stable condition today. - Time Spent with Patient Total time spent providing and/or coordinating discharge services: - Discharge Medications Prescriptions: New Metoprolol [Lopressor] 12.5 mg PO BID #30 tablet Omeprazole [PriLOSEC] 20 mg PO DAILY@0630 #30 capsule. Continue Aspirin [Lo-Dose Aspirin EC] 81 mg PO DAILY Ropinirole HCl [Requip] 1 mg PO HS PARoxetine HCl [Paroxetine HCl] 60 mg PO QAM Doxepin HCl 150 mg PO HS Chlorpromazine HCl 300 mg PO HS hydrOXYzine HCl [Hydroxyzine HCl] 25 mg PO BID PRN PRN Reason: Anxiety Prochlorperazine Maleate [Compazine] 5 mg PO DAILY Tizanidine HCl 2 mg PO TID Home Medications: Aspirin [Lo-Dose Aspirin EC] 81 mg PO DAILY 03/13/18 [History] Chlorpromazine HCl 300 mg PO HS 03/13/18 [History] Doxepin HCl 150 mg PO HS 03/13/18 [History] PARoxetine HCl [Paroxetine HCl] 60 mg PO QAM 03/13/18 [History] Ropinirole HCl [Requip] 1 mg PO HS 03/13/18 [History] hydrOXYzine HCl [Hydroxyzine HCl] 25 mg PO BID PRN 03/13/18 [History] Prochlorperazine Maleate [Compazine] 5 mg PO DAILY 07/20/18 [History] Tizanidine HCl 2 mg PO TID 07/20/18 [History] Metoprolol [Lopressor] 12.5 mg PO BID #30 tablet 07/21/18 [Rx] Omeprazole [PriLOSEC] 20 mg PO DAILY@0630 #30 capsule. 07/21/18 [Rx] Allergies/Adverse Reactions: Allergy/AdvReac Type Severity Reaction Status Date / Time sulfamethoxazole Allergy Intermediate Blister Verified 07/20/18 20:55 [From Bactrim] metoclopramide [From Reglan] Allergy Mild Itching Verified 07/20/18 20:55 amitriptyline Allergy Itching Verified 07/20/18 20:55 Sulfa (Sulfonamide Allergy Blister Verified 07/20/18 20:55 Antibiotics) trimethoprim [From Bactrim] Allergy Blister Verified 07/20/18 20:55 lorazepam [From Ativan] AdvReac Mild Anxiety Verified 07/20/18 20:55 benztropine [From Cogentin] AdvReac See Verified 07/20/18 20:55 Comments ciprofloxacin [From Cipro] AdvReac Blister Verified 07/20/18 20:55 onabotulinumtoxinA AdvReac See Verified 07/20/18 20:55 [From Botox] Comments sertraline [From Zoloft] AdvReac Headache Verified 07/20/18 20:55 sumatriptan [From Imitrex] AdvReac Agitated Verified 07/20/18 20:55 topiramate [From Topamax] AdvReac See Verified 07/20/18 20:55 Comments Date of admission: 07/20/18 08:35 Primary care physician: Iman Monae CNP Consults: 07/20/18 12:37 Consult to Cardiology [CONS] Routine Comment: Consulting Provider: Cardiology Patty Reason for Consult: chest pain--Normal stress test 02/2018 Time Notified: 12:37 Call Completed: Yes - Constitutional Vitals: Temp Pulse Resp BP Pulse Ox 97.9 F 82 17 107/73 94 07/21/18 11:46 07/21/18 11:46 07/21/18 11:46 07/21/18 11:46 07/21/18 11:46 General appearance: Present: cooperative, A&O X 3, no acute distress, answers questions appropriately Exam: Gen: Alert, awake, Oriented to time,place and person Chest: Diminished breath sounds B/L, No wheezing, No crackles, No rales Heart: S1S2+ RRR No murmurs Abd: Soft, NT, BS +, No organomegaly Ext: No edema, pulses are palpable, No calf tenderness Neuro : Benign findings Skin: No rash. - Patient Status Disposition: Home, Self-Care Condition: Good Overall status at discharge: patient is back to baseline - Discharge Instructions Follow Up With: Iman Monae CNP [Primary Care Provider] - 07/27/18 10:30 am Griselda Fournier DO [Partnered Physician] - - Diet and Activity Activity: increase activity as tolerated Diet: low salt diet
--- NOTE | 2018-07-21 17:55 | Electrocardiograph Report ---
[address] [place], [place] [address] Test Date: 2018-07-20 Pat Name: Angela Montoya Department: 113 Room: 3B44 Gender: F Attending Psychiatrist: : [id number] Requested By: Nevaeh Gaviria Order Number: [id number] Reading MD: Griselda Fournier Measurements Intervals [place] Rate: 92 P: 19 SD: 172 QRS: -4 QRSD: 98 T: 16 QT: 372 QTc: 421 Interpretive Statements SINUS RHYTHM POSSIBLE RIGHT VENTRICULAR CONDUCTION DELAY INFERIOR MYOCARDIAL INFARCTION, PROBABLY OLD WITH POSTERIOR EXTENSION MODERATE T-WAVE ABNORMALITY, CONSIDER ANTERIOR ISCHEMIA Electronically Signed On 07-21-2018 17:53:12 EDT by Griselda Fournier
== END 2018-07-21 17:07 | disposition home or self-care (01) ==
LOC: EMEROOARM 03:57 → 3BNU 03:57 → SUATTDRO 08:35 → 3BNU 08:59
PROVIDERS: ADMIT Internal Medicine; ATTEND Family Medicine

== ENCOUNTER 2019-01-05 20:40 | Observation (INO) ==
[2019-01-05] MEDS ORDERED: hydrOXYzine pamoate 25 MG CAPSULE PO ONE (20:51)
[2019-01-05] MEDS ORDERED: Isovue-370 500 ML BOTTLE IVP ONE (20:51)
[2019-01-05] MEDS ORDERED: 0.9 % Sodium Chloride 1,000 ML IVC ONE ×2 (20:51→23:52)
--- NOTE | 2019-01-05 20:51 | Emergency Department Note ---
Disposition Clinical Impression: Pancreatitis Qualifiers: Chronicity: acute Pancreatitis type: unspecified pancreatitis type Acute pancreatitis complication: no infection or necrosis Qualified Code(s): K85.90 - Acute pancreatitis without necrosis or infection, unspecified Altered mental state Qualifiers: Altered mental status type: unspecified Qualified Code(s): R41.82 - Altered mental status, unspecified Disposition: Admitted As Inpatient Condition: Good Time of Disposition: 10:57 General Adult HPI - General Chief complaint: ED Abdominal Pain Stated complaint: abd pain Time Seen by Provider: 01/05/19 20:45 Source: patient, EMS Limitations: no limitations - History of Present Illness Pain Scale: 10 - Related Data Home Medications Medication Instructions Recorded Confirmed Aspirin [Lo-Dose Aspirin EC] 81 mg PO DAILY 03/13/18 01/06/19 Ropinirole HCl [Requip] 1 mg PO HS 03/13/18 01/06/19 Previous Rx's Medication Instructions Recorded Hydrocodone/Acetaminophen [[place] 1 each PO Q8H PRN 7 Days #21 tablet 01/08/19 10-325 Tablet] PARoxetine HCl [Paroxetine HCl] 60 mg PO QAM 15 Days #15 tablet 01/08/19 chlorproMAZINE [Thorazine] 100 mg PO HS 7 Days #7 tablet 01/08/19 Allergies Allergy/AdvReac Type Severity Reaction Status Date / Time sulfamethoxazole Allergy Intermediate Blister Verified 01/06/19 17:02 [From Bactrim] metoclopramide [From Reglan] Allergy Mild Itching Verified 01/06/19 17:02 amitriptyline Allergy Itching Verified 01/06/19 17:02 Sulfa (Sulfonamide Allergy Blister Verified 01/06/19 17:02 Antibiotics) trimethoprim [From Bactrim] Allergy Blister Verified 01/06/19 17:02 lorazepam [From Ativan] AdvReac Mild Anxiety Verified 01/06/19 17:02 benztropine [From Cogentin] AdvReac See Verified 01/06/19 17:02 Comments ciprofloxacin [From Cipro] AdvReac Blister Verified 01/06/19 17:02 onabotulinumtoxinA AdvReac See Verified 01/06/19 17:02 [From Botox] Comments sertraline [From Zoloft] AdvReac Headache Verified 01/06/19 17:02 sumatriptan [From Imitrex] AdvReac Agitated Verified 01/06/19 17:02 topiramate [From Topamax] AdvReac See Verified 01/06/19 17:02 Comments Past Medical History - Past Medical History Medical history: Reports: CHF, COPD, GERD, migraine Surgical history: Reports: , cholecystectomy, herniorrhaphy, hysterectomy Psychiatric history: Reports: anxiety, bipolar, depression [employer] history: Reports: no [employer] history, other - Social History Smoking Status: Former smoker Smokeless Tobacco Status: No Alcohol use: Reports: none Drug use: Reports: none, opiates Physical Exam - General Limitations: no limitations General appearance: alert, anxious Course Vital Signs Temperature 98.2 F 01/05/19 20:46 Pulse Rate 93 01/05/19 20:46 Respiratory Rate 18 01/05/19 20:46 Blood Pressure 112/100 01/05/19 20:46 O2 Sat by Pulse Oximetry 100 01/05/19 20:46 Temperature 97.7 F 01/08/19 10:05 Pulse Rate 111 01/08/19 10:05 Respiratory Rate 16 01/08/19 10:05 Blood Pressure 117/70 01/08/19 10:05 O2 Sat by Pulse Oximetry 99 01/08/19 10:05 Oxygen Delivery Oxygen Delivery Room Air Medical Decision Making - Lab Data Result diagrams: 01/08/19 04:00 01/08/19 11:45 Lab Results 01/05/19 01/05/19 01/05/19 Range/Units 21:37 21:37 21:37 WBC 9.4 (4.3-11.1) K/mcL RBC 4.70 (3.82-4.97) M/mcL Hgb 14.0 (11.5-15.4) g/dL Hct 42.5 (35.3-44.9) % MCV 90.4 (83.0-100.0) fL MCH 29.8 (28.0-33.3) pg MCHC 32.9 (31.6-35.5) g/dL RDW 14.2 (11.5-14.5) % Plt Count 285 (140-400) K/mcL MPV 10.0 (9.4-12.4) fL Immature Gran % 0.2 (0-4) % Seg Neutrophils % 58.6 % Lymphocytes % 30.5 % Monocytes % 8.0 % Eosinophils % 1.8 % Basophils % 0.9 % Neutrophils # 5.5 (1.6-8.9) K/mcL Lymphocytes # 2.9 (0.6-4.6) K/mcL Monocytes # 0.8 (0.0-1.3) K/mcL Eosinophils # 0.2 (0.0-0.6) K/mcL Basophils # 0.1 (0.0-0.2) K/mcL Sodium 138 (136-145) mEq/L Potassium 3.4 L (3.5-5.1) mEq/L Chloride 109 H (98-107) mEq/L Carbon Dioxide 14 L (23-29) mEq/L BUN 16 (8-23) mg/dL Creatinine 0.59 L (0.60-1.20) mg/dL Est GFR ( Amer) > 60 (> 60) Est GFR (Non-Af Amer) > 60 (> 60) BUN/Creatinine Ratio 27 H (6-26) Glucose 101 (70-105) mg/dL Calculated Osmolality 287 (280-300) Lactic Acid 1.8 (0.5-2.2) mmol/L Calcium 9.8 (8.6-10.3) mg/dL Total Bilirubin 0.4 (0.3-1.0) mg/dL Direct Bilirubin 0.1 (0.0-0.2) mg/dL Indirect Bilirubin 0.3 (0.0-1.2) mg/dL AST 36 (13-39) Units/L ALT 45 (7-52) Units/L Alkaline Phosphatase 152 H (34-104) Units/L Ammonia (16-53) mcmol/L Troponin I < 0.03 (< 0.04) ng/mL Serum Total Protein 6.6 (6.4-8.9) g/dL Albumin 3.8 (3.5-5.7) g/dL Globulin 2.8 (2.4-3.5) g/dL Albumin/Globulin Ratio 1.4 (1.1-2.2) Lipase 25 (11-82) Units/L Urine Color (Yellow) Urine Clarity (Clear) Urine pH (5.0-8.0) pH Units Ur Specific [place] (1.010-1.025) Urine Protein (Neg-Trace) mg/dL Urine Glucose (UA) (Normal) mg/dL Urine Ketones (Negative) mg/dL Urine Blood (Negative) Urine Nitrite (Negative) Urine Bilirubin (Negative) Urine Urobilinogen (Normal) mg/dL Ur Leukocyte Esterase (Negative) Urine Microscopic RBC (0-3) per hpf Urine Microscopic WBC (0-3) per hpf Ur Squamous Epith Cells (None-Few) per lpf Calcium Oxalate Crystal Urine Bacteria (None-Few) per hpf Hyaline Casts (None-Few) per lpf Urine Yeast (None Seen) per hpf Urine Opiates Screen (Udgeod=630) ng/mL Ur Buprenorphine Scrn (Cutoff=5) ng/mL Ur Barbiturates Screen (Dndjzk=063) ng/mL Ur Phencyclidine Scrn (Cutoff=25) ng/mL Ur Amphetamines Screen (Oldvyr=1471) ng/mL U Benzodiazepines Scrn (Syvdlq=264) ng/mL Urine Cocaine Screen (Cutoff= 300) ng/mL U Marijuana (THC) Screen (Cutoff = 50) ng/mL Ur Drug Screen Interp Ethyl Alcohol (Less than 10) mg/dL 01/05/19 01/05/19 01/05/19 Range/Units 21:37 21:37 22:09 WBC (4.3-11.1) K/mcL RBC (3.82-4.97) M/mcL Hgb (11.5-15.4) g/dL Hct (35.3-44.9) % MCV (83.0-100.0) fL MCH (28.0-33.3) pg MCHC (31.6-35.5) g/dL RDW (11.5-14.5) % Plt Count (140-400) K/mcL MPV (9.4-12.4) fL Immature Gran % (0-4) % Seg Neutrophils % % Lymphocytes % % Monocytes % % Eosinophils % % Basophils % % Neutrophils # (1.6-8.9) K/mcL Lymphocytes # (0.6-4.6) K/mcL Monocytes # (0.0-1.3) K/mcL Eosinophils # (0.0-0.6) K/mcL Basophils # (0.0-0.2) K/mcL Sodium (136-145) mEq/L Potassium (3.5-5.1) mEq/L Chloride (98-107) mEq/L Carbon Dioxide (23-29) mEq/L BUN (8-23) mg/dL Creatinine (0.60-1.20) mg/dL Est GFR ( Amer) (> 60) Est GFR (Non-Af Amer) (> 60) BUN/Creatinine Ratio (6-26) Glucose (70-105) mg/dL Calculated Osmolality (280-300) Lactic Acid (0.5-2.2) mmol/L Calcium (8.6-10.3) mg/dL Total Bilirubin (0.3-1.0) mg/dL Direct Bilirubin (0.0-0.2) mg/dL Indirect Bilirubin (0.0-1.2) mg/dL AST (13-39) Units/L ALT (7-52) Units/L Alkaline Phosphatase (34-104) Units/L Ammonia 44 (16-53) mcmol/L Troponin I (< 0.04) ng/mL Serum Total Protein (6.4-8.9) g/dL Albumin (3.5-5.7) g/dL Globulin (2.4-3.5) g/dL Albumin/Globulin Ratio (1.1-2.2) Lipase (11-82) Units/L Urine Color Dark Yellow (Yellow) Urine Clarity Clear (Clear) Urine pH 5.5 (5.0-8.0) pH Units Ur Specific [place] 1.029 H (1.010-1.025) Urine Protein 30 H (Neg-Trace) mg/dL Urine Glucose (UA) Normal (Normal) mg/dL Urine Ketones Negative (Negative) mg/dL Urine Blood Small H (Negative) Urine Nitrite Negative (Negative) Urine Bilirubin Small H (Negative) Urine Urobilinogen Normal (Normal) mg/dL Ur Leukocyte Esterase Moderate H (Negative) Urine Microscopic RBC 0-3 (0-3) per hpf Urine Microscopic WBC 30-50 H (0-3) per hpf Ur Squamous Epith Cells Many H (None-Few) per lpf Calcium Oxalate Crystal Present Urine Bacteria None Seen (None-Few) per hpf Hyaline Casts None Seen (None-Few) per lpf Urine Yeast Few H (None Seen) per hpf Urine Opiates Screen (Rzfxei=713) ng/mL Ur Buprenorphine Scrn (Cutoff=5) ng/mL Ur Barbiturates Screen (Hfnftw=926) ng/mL Ur Phencyclidine Scrn (Cutoff=25) ng/mL Ur Amphetamines Screen (Gzlurq=9972) ng/mL U Benzodiazepines Scrn (Jngmwm=758) ng/mL Urine Cocaine Screen (Cutoff= 300) ng/mL U Marijuana (THC) Screen (Cutoff = 50) ng/mL Ur Drug Screen Interp Ethyl Alcohol < 10 (Less than 10) mg/dL 01/05/19 Range/Units 22:09 WBC (4.3-11.1) K/mcL RBC (3.82-4.97) M/mcL Hgb (11.5-15.4) g/dL Hct (35.3-44.9) % MCV (83.0-100.0) fL MCH (28.0-33.3) pg MCHC (31.6-35.5) g/dL RDW (11.5-14.5) % Plt Count (140-400) K/mcL MPV (9.4-12.4) fL Immature Gran % (0-4) % Seg Neutrophils % % Lymphocytes % % Monocytes % % Eosinophils % % Basophils % % Neutrophils # (1.6-8.9) K/mcL Lymphocytes # (0.6-4.6) K/mcL Monocytes # (0.0-1.3) K/mcL Eosinophils # (0.0-0.6) K/mcL Basophils # (0.0-0.2) K/mcL Sodium (136-145) mEq/L Potassium (3.5-5.1) mEq/L Chloride (98-107) mEq/L Carbon Dioxide (23-29) mEq/L BUN (8-23) mg/dL Creatinine (0.60-1.20) mg/dL Est GFR ( Amer) (> 60) Est GFR (Non-Af Amer) (> 60) BUN/Creatinine Ratio (6-26) Glucose (70-105) mg/dL Calculated Osmolality (280-300) Lactic Acid (0.5-2.2) mmol/L Calcium (8.6-10.3) mg/dL Total Bilirubin (0.3-1.0) mg/dL Direct Bilirubin (0.0-0.2) mg/dL Indirect Bilirubin (0.0-1.2) mg/dL AST (13-39) Units/L ALT (7-52) Units/L Alkaline Phosphatase (34-104) Units/L Ammonia (16-53) mcmol/L Troponin I (< 0.04) ng/mL Serum Total Protein (6.4-8.9) g/dL Albumin (3.5-5.7) g/dL Globulin (2.4-3.5) g/dL Albumin/Globulin Ratio (1.1-2.2) Lipase (11-82) Units/L Urine Color (Yellow) Urine Clarity (Clear) Urine pH (5.0-8.0) pH Units Ur Specific [place] (1.010-1.025) Urine Protein (Neg-Trace) mg/dL Urine Glucose (UA) (Normal) mg/dL Urine Ketones (Negative) mg/dL Urine Blood (Negative) Urine Nitrite (Negative) Urine Bilirubin (Negative) Urine Urobilinogen (Normal) mg/dL Ur Leukocyte Esterase (Negative) Urine Microscopic RBC (0-3) per hpf Urine Microscopic WBC (0-3) per hpf Ur Squamous Epith Cells (None-Few) per lpf Calcium Oxalate Crystal Urine Bacteria (None-Few) per hpf Hyaline Casts (None-Few) per lpf Urine Yeast (None Seen) per hpf Urine Opiates Screen Negative (Qognpf=058) ng/mL Ur Buprenorphine Scrn Negative (Cutoff=5) ng/mL Ur Barbiturates Screen Negative (Yhamep=528) ng/mL Ur Phencyclidine Scrn Negative (Cutoff=25) ng/mL Ur Amphetamines Screen Negative (Dnlbdv=4279) ng/mL U Benzodiazepines Scrn Negative (Uyetfa=443) ng/mL Urine Cocaine Screen Negative (Cutoff= 300) ng/mL U Marijuana (THC) Screen Negative (Cutoff = 50) ng/mL Ur Drug Screen Interp See Below Ethyl Alcohol (Less than 10) mg/dL Attestation Statement - Attestation Attestation: I reviewed the residents documentation and agree with the residents assessment and plan of care. I have personally had face to face time with the patient. (Brief History, Brief Exam, and MDM) I personally supervised and was present for the stratton/critical portions of the following procedures completed by the resident: (add procedures performed here). [id number] time provided I attest to supervising the resident physician's interpretation of the ECG Patient presents with confusion and altered mentation. She is anxious and actively scratching her arms on exam. I did evaluate this patient in conjunction with the resident physician and the patient has a complicated medical history including recent pancreatic phlegmon requiring drainage.
--- NOTE | 2019-01-05 20:53 | Emergency Department Note ---
Disposition Clinical Impression: Pancreatitis Qualifiers: Chronicity: acute Pancreatitis type: unspecified pancreatitis type Acute pancreatitis complication: no infection or necrosis Qualified Code(s): K85.90 - Acute pancreatitis without necrosis or infection, unspecified Altered mental state Qualifiers: Altered mental status type: unspecified Qualified Code(s): R41.82 - Altered mental status, unspecified Disposition: Admitted As Inpatient Condition: Fair Forms: ED Satisfaction Letter, Work/School Release Time of Disposition: 00:04 General Adult HPI - General Chief complaint: ED Abdominal Pain Stated complaint: abd pain Time Seen by Provider: 01/05/19 20:45 Source: patient, EMS Mode of arrival: EMS Limitations: no limitations Nursing Notes Reviewed: Yes Vital Signs Reviewed: Yes - History of Present Illness HPI Narrative: Patient is a 58-year-old female who is presenting with abdominal pain and altered mental status. Patient with history of pancreatitis with recent admi ssion to [facility] secondary to pancreatitis with drain placement concern for phlegmon and necrosis. Patient states she was discharged just this past week, however this cannot be verified in our electronic records. Patient states over the past couple of days she has had mid epigastric abdominal pain, with associated nausea, she denies current vomiting. She denies fevers or chills. She states that she has been having significant itching throughout her arms and legs and chest, her family states that she has been having hallucinations, she states that she understands she has visual hallucinations where she feels as though there is a copper tapper in her hand or there is money in her hand and there is not. She denies any recent drug use, alcohol use. She does not have her gallbladder. She denies any recent trauma or fall. She is on any anticoagulations medications. Patient has a history of IV drug use as well as alcoholism in the past. She has traditionally brought here by her parents but they are unable to attend and be by her side today. She does currently live with her parents at home. Pain Scale: 10 - Related Data Home Medications Medication Instructions Recorded Confirmed Aspirin [Lo-Dose Aspirin EC] 81 mg PO DAILY 03/13/18 09/13/18 Chlorpromazine HCl 300 mg PO HS 03/13/18 09/13/18 Doxepin HCl 150 mg PO HS 03/13/18 09/13/18 PARoxetine HCl [Paroxetine HCl] 60 mg PO QAM 03/13/18 09/13/18 Ropinirole HCl [Requip] 1 mg PO HS 03/13/18 09/13/18 Prochlorperazine Maleate 5 mg PO DAILY 07/20/18 09/13/18 [Compazine] Sucralfate [Carafate] 1 gm PO TID 09/13/18 09/13/18 Tizanidine HCl 4 mg PO BID 09/13/18 09/13/18 Previous Rx's Medication Instructions Recorded Omeprazole [PriLOSEC] 20 mg PO DAILY@0630 #30 capsule. 07/21/18 Acetaminophen [Tylenol] 650 mg PO Q6HR PRN tablet 10/07/18 Ipratropium/Albuterol Neb [Duoneb] 3 ml IH [id number] PRN inhsol 10/07/18 Metoprolol [Lopressor] 12.5 mg PO BID tablet 10/07/18 Naloxone [Narcan] 0.4 mg IVP Q2MPRN PRN inj 10/07/18 Ondansetron [Zofran] 4 mg IVP Q6HR PRN vial 10/07/18 Promethazine [Phenergan] 12.5 mg IVP Q4H PRN vial 10/07/18 Sucralfate [Carafate] 1 gm GTUBE 0730,1630 udc 10/07/18 Promethazine [Phenergan] 25 mg PO Q8HR PRN #8 tablet 12/20/18 cephALEXin [Keflex] 500 mg PO QID 10 Days #40 capsule 12/20/18 Allergies Allergy/AdvReac Type Severity Reaction Status Date / Time sulfamethoxazole Allergy Intermediate Blister Verified 09/12/18 12:43 [From Bactrim] metoclopramide [From Reglan] Allergy Mild Itching Verified 09/12/18 12:43 amitriptyline Allergy Itching Verified 09/12/18 12:43 Sulfa (Sulfonamide Allergy Blister Verified 09/12/18 12:43 Antibiotics) trimethoprim [From Bactrim] Allergy Blister Verified 09/12/18 12:43 lorazepam [From Ativan] AdvReac Mild Anxiety Verified 09/12/18 12:43 benztropine [From Cogentin] AdvReac See Verified 09/12/18 12:43 Comments ciprofloxacin [From Cipro] AdvReac Blister Verified 09/12/18 12:43 onabotulinumtoxinA AdvReac See Verified 09/12/18 12:43 [From Botox] Comments sertraline [From Zoloft] AdvReac Headache Verified 09/12/18 12:43 sumatriptan [From Imitrex] AdvReac Agitated Verified 09/12/18 12:43 topiramate [From Topamax] AdvReac See Verified 09/12/18 12:43 Comments All systems ED: reviewed and negative except as stated. Review of Systems: As Per HPI Constitutional: Denies: fever, chills ENT ED: Denies: congestion Cardiovascular: Denies: chest pain, palpitations, syncope Respiratory: Denies: cough, dyspnea, wheezes Gastrointestinal: Reports: abdominal pain, nausea, vomiting. Denies: diarrhea, constipation, hematemesis, melena, hematochezia Genitourinary: Denies: urgency, dysuria Musculoskeletal: Denies: back pain Integumentary: Denies: rash Neurological: Reports: confusion. Denies: headache, weakness, numbness Psychiatric: Reports: visual hallucinations. 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 - Social History Smoking Status: Former smoker Smokeless Tobacco Status: No Alcohol use: Reports: none Drug use: Reports: none, opiates Physical Exam - General Limitations: no limitations, altered mental status General appearance: alert, anxious - Head Head exam: atraumatic, normocephalic, normal inspection - Eye Eye exam: Present: normal appearance, PERRL, EOMI - ENT ENT exam: normal oropharynx, mucous membranes dry - Neck Neck exam: Present: normal inspection, full ROM, trachea midline - Chest Chest inspection: Present: normal inspection, symmetric chest wall rise - Respiratory Respiratory exam: Present: normal lung sounds bilaterally - Abdominal Exam Abdominal exam: Present: soft, tenderness (To the midepigastric region without guarding or distention, no rigidity) - Extremities Exam Extremities exam: Present: normal inspection, full ROM. Absent: tenderness, pedal edema - Neurological Exam Neurological exam: Present: alert, oriented X3, CN II-XII intact. Absent: motor sensory deficit, reflexes normal - Psychiatric Psychiatric exam: Present: normal affect, normal mood - Skin Skin exam: Present: warm, dry, intact, normal color. Absent: rash, cyanosis, diaphoresis, pallor, mottled Course Vital Signs Temperature 98.2 F 01/05/19 20:46 Pulse Rate 93 01/05/19 20:46 Respiratory Rate 18 01/05/19 20:46 Blood Pressure 112/100 01/05/19 20:46 O2 Sat by Pulse Oximetry 100 01/05/19 20:46 Temperature 98.2 F 01/05/19 20:46 Pulse Rate 83 01/06/19 00:12 Respiratory Rate 26 01/06/19 00:12 Blood Pressure 113/57 01/06/19 00:12 O2 Sat by Pulse Oximetry 100 01/06/19 00:12 Oxygen Delivery Oxygen Delivery Room Air Medical Decision Making - [facility] Narrative Medical decision making narrative: Patient is a 58-year-old female presenting with abdominal pain and hallucination. Patient was recently seen in September and diagnosed with pancreatitis requiring transfer to [facility] for drain placement secondary to pancreatitis was phlegmon and necrosis, patient did return on for recurrent pancreatitis and was transferred to [facility] once again and discharge within the past couple of days. On arrival, patient is alert and oriented 3, however is somewhat confused and disheveled, anxious in appearance, she is brought in via EMS with notes of hallucination and altered mentation with abdominal pain. Initial concern for worsening pancreatitis or new onset pancreatitis, will work including CBC, BMP, chest x-ray, CT of the head and CT of the abdomen and pelvis was performed. Laboratory work was reviewed and relatively within normal limits. CT head shows no acute intracranial process. Chest x-ray shows no acute cardio or pulmonary process, no sign of infection. Urinalysis shows no sign of urinary tract infection, urine drug screen is negative, alcohol is negative. CT of the abdomen and pelvis does show concern for acute pancreatitis, although lipase is within normal limits, patient does have midepigastric abdominal pain with nausea. Patient was given a total of 2 L of saline here in the ER. Attempts to give Vistaril secondary to itching, Benadryl did not work for her at home, however patient refused. Patient at this point in time will be admitted to the hospital for acute pancreatitis and hallucinations. Patient has been admitted by the hospitalist. - Medical Records Medical records reviewed: Yes I reviewed the patient's medical records. - Lab Data Lab results reviewed: Yes I reviewed the patient's lab results. Result diagrams: 01/05/19 21:37 01/05/19 21:37 Lab Results 01/05/19 01/05/19 01/05/19 Range/Units 21:37 21:37 21:37 WBC 9.4 (4.3-11.1) K/mcL RBC 4.70 (3.82-4.97) M/mcL Hgb 14.0 (11.5-15.4) g/dL Hct 42.5 (35.3-44.9) % MCV 90.4 (83.0-100.0) fL MCH 29.8 (28.0-33.3) pg MCHC 32.9 (31.6-35.5) g/dL RDW 14.2 (11.5-14.5) % Plt Count 285 (140-400) K/mcL MPV 10.0 (9.4-12.4) fL Immature Gran % 0.2 (0-4) % Seg Neutrophils % 58.6 % Lymphocytes % 30.5 % Monocytes % 8.0 % Eosinophils % 1.8 % Basophils % 0.9 % Neutrophils # 5.5 (1.6-8.9) K/mcL Lymphocytes # 2.9 (0.6-4.6) K/mcL Monocytes # 0.8 (0.0-1.3) K/mcL Eosinophils # 0.2 (0.0-0.6) K/mcL Basophils # 0.1 (0.0-0.2) K/mcL Sodium 138 (136-145) mEq/L Potassium 3.4 L (3.5-5.1) mEq/L Chloride 109 H (98-107) mEq/L Carbon Dioxide 14 L (23-29) mEq/L BUN 16 (8-23) mg/dL Creatinine 0.59 L (0.60-1.20) mg/dL Est GFR ( Amer) > 60 (> 60) Est GFR (Non-Af Amer) > 60 (> 60) BUN/Creatinine Ratio 27 H (6-26) Glucose 101 (70-105) mg/dL Calculated Osmolality 287 (280-300) Lactic Acid 1.8 (0.5-2.2) mmol/L Calcium 9.8 (8.6-10.3) mg/dL Total Bilirubin 0.4 (0.3-1.0) mg/dL Direct Bilirubin 0.1 (0.0-0.2) mg/dL Indirect Bilirubin 0.3 (0.0-1.2) mg/dL AST 36 (13-39) Units/L ALT 45 (7-52) Units/L Alkaline Phosphatase 152 H (34-104) Units/L Ammonia (16-53) mcmol/L Troponin I < 0.03 (< 0.04) ng/mL Serum Total Protein 6.6 (6.4-8.9) g/dL Albumin 3.8 (3.5-5.7) g/dL Globulin 2.8 (2.4-3.5) g/dL Albumin/Globulin Ratio 1.4 (1.1-2.2) Lipase 25 (11-82) Units/L Urine Color (Yellow) Urine Clarity (Clear) Urine pH (5.0-8.0) pH Units Ur Specific [place] (1.010-1.025) Urine Protein (Neg-Trace) mg/dL Urine Glucose (UA) (Normal) mg/dL Urine Ketones (Negative) mg/dL Urine Blood (Negative) Urine Nitrite (Negative) Urine Bilirubin (Negative) Urine Urobilinogen (Normal) mg/dL Ur Leukocyte Esterase (Negative) Urine Microscopic RBC (0-3) per hpf Urine Microscopic WBC (0-3) per hpf Ur Squamous Epith Cells (None-Few) per lpf Calcium Oxalate Crystal Urine Bacteria (None-Few) per hpf Hyaline Casts (None-Few) per lpf Urine Yeast (None Seen) per hpf Urine Opiates Screen (Jewdct=312) ng/mL Ur Buprenorphine Scrn (Cutoff=5) ng/mL Ur Barbiturates Screen (Dujphz=551) ng/mL Ur Phencyclidine Scrn (Cutoff=25) ng/mL Ur Amphetamines Screen (Teaxcl=2892) ng/mL U Benzodiazepines Scrn (Lihqvd=580) ng/mL Urine Cocaine Screen (Cutoff= 300) ng/mL U Marijuana (THC) Screen (Cutoff = 50) ng/mL Ur Drug Screen Interp Ethyl Alcohol (Less than 10) mg/dL 01/05/19 01/05/19 01/05/19 Range/Units 21:37 21:37 22:09 WBC (4.3-11.1) K/mcL RBC (3.82-4.97) M/mcL Hgb (11.5-15.4) g/dL Hct (35.3-44.9) % MCV (83.0-100.0) fL MCH (28.0-33.3) pg MCHC (31.6-35.5) g/dL RDW (11.5-14.5) % Plt Count (140-400) K/mcL MPV (9.4-12.4) fL Immature Gran % (0-4) % Seg Neutrophils % % Lymphocytes % % Monocytes % % Eosinophils % % Basophils % % Neutrophils # (1.6-8.9) K/mcL Lymphocytes # (0.6-4.6) K/mcL Monocytes # (0.0-1.3) K/mcL Eosinophils # (0.0-0.6) K/mcL Basophils # (0.0-0.2) K/mcL Sodium (136-145) mEq/L Potassium (3.5-5.1) mEq/L Chloride (98-107) mEq/L Carbon Dioxide (23-29) mEq/L BUN (8-23) mg/dL Creatinine (0.60-1.20) mg/dL Est GFR ( Amer) (> 60) Est GFR (Non-Af Amer) (> 60) BUN/Creatinine Ratio (6-26) Glucose (70-105) mg/dL Calculated Osmolality (280-300) Lactic Acid (0.5-2.2) mmol/L Calcium (8.6-10.3) mg/dL Total Bilirubin (0.3-1.0) mg/dL Direct Bilirubin (0.0-0.2) mg/dL Indirect Bilirubin (0.0-1.2) mg/dL AST (13-39) Units/L ALT (7-52) Units/L Alkaline Phosphatase (34-104) Units/L Ammonia 44 (16-53) mcmol/L Troponin I (< 0.04) ng/mL Serum Total Protein (6.4-8.9) g/dL Albumin (3.5-5.7) g/dL Globulin (2.4-3.5) g/dL Albumin/Globulin Ratio (1.1-2.2) Lipase (11-82) Units/L Urine Color Dark Yellow (Yellow) Urine Clarity Clear (Clear) Urine pH 5.5 (5.0-8.0) pH Units Ur Specific [place] 1.029 H (1.010-1.025) Urine Protein 30 H (Neg-Trace) mg/dL Urine Glucose (UA) Normal (Normal) mg/dL Urine Ketones Negative (Negative) mg/dL Urine Blood Small H (Negative) Urine Nitrite Negative (Negative) Urine Bilirubin Small H (Negative) Urine Urobilinogen Normal (Normal) mg/dL Ur Leukocyte Esterase Moderate H (Negative) Urine Microscopic RBC 0-3 (0-3) per hpf Urine Microscopic WBC 30-50 H (0-3) per hpf Ur Squamous Epith Cells Many H (None-Few) per lpf Calcium Oxalate Crystal Present Urine Bacteria None Seen (None-Few) per hpf Hyaline Casts None Seen (None-Few) per lpf Urine Yeast Few H (None Seen) per hpf Urine Opiates Screen (Soeyuq=102) ng/mL Ur Buprenorphine Scrn (Cutoff=5) ng/mL Ur Barbiturates Screen (Ygatez=624) ng/mL Ur Phencyclidine Scrn (Cutoff=25) ng/mL Ur Amphetamines Screen (Zkjvto=6689) ng/mL U Benzodiazepines Scrn (Llqlyy=422) ng/mL Urine Cocaine Screen (Cutoff= 300) ng/mL U Marijuana (THC) Screen (Cutoff = 50) ng/mL Ur Drug Screen Interp Ethyl Alcohol < 10 (Less than 10) mg/dL 01/05/19 Range/Units 22:09 WBC (4.3-11.1) K/mcL RBC (3.82-4.97) M/mcL Hgb (11.5-15.4) g/dL Hct (35.3-44.9) % MCV (83.0-100.0) fL MCH (28.0-33.3) pg MCHC (31.6-35.5) g/dL RDW (11.5-14.5) % Plt Count (140-400) K/mcL MPV (9.4-12.4) fL Immature Gran % (0-4) % Seg Neutrophils % % Lymphocytes % % Monocytes % % Eosinophils % % Basophils % % Neutrophils # (1.6-8.9) K/mcL Lymphocytes # (0.6-4.6) K/mcL Monocytes # (0.0-1.3) K/mcL Eosinophils # (0.0-0.6) K/mcL Basophils # (0.0-0.2) K/mcL Sodium (136-145) mEq/L Potassium (3.5-5.1) mEq/L Chloride (98-107) mEq/L Carbon Dioxide (23-29) mEq/L BUN (8-23) mg/dL Creatinine (0.60-1.20) mg/dL Est GFR ( Amer) (> 60) Est GFR (Non-Af Amer) (> 60) BUN/Creatinine Ratio (6-26) Glucose (70-105) mg/dL Calculated Osmolality (280-300) Lactic Acid (0.5-2.2) mmol/L Calcium (8.6-10.3) mg/dL Total Bilirubin (0.3-1.0) mg/dL Direct Bilirubin (0.0-0.2) mg/dL Indirect Bilirubin (0.0-1.2) mg/dL AST (13-39) Units/L ALT (7-52) Units/L Alkaline Phosphatase (34-104) Units/L Ammonia (16-53) mcmol/L Troponin I (< 0.04) ng/mL Serum Total Protein (6.4-8.9) g/dL Albumin (3.5-5.7) g/dL Globulin (2.4-3.5) g/dL Albumin/Globulin Ratio (1.1-2.2) Lipase (11-82) Units/L Urine Color (Yellow) Urine Clarity (Clear) Urine pH (5.0-8.0) pH Units Ur Specific [place] (1.010-1.025) Urine Protein (Neg-Trace) mg/dL Urine Glucose (UA) (Normal) mg/dL Urine Ketones (Negative) mg/dL Urine Blood (Negative) Urine Nitrite (Negative) Urine Bilirubin (Negative) Urine Urobilinogen (Normal) mg/dL Ur Leukocyte Esterase (Negative) Urine Microscopic RBC (0-3) per hpf Urine Microscopic WBC (0-3) per hpf Ur Squamous Epith Cells (None-Few) per lpf Calcium Oxalate Crystal Urine Bacteria (None-Few) per hpf Hyaline Casts (None-Few) per lpf Urine Yeast (None Seen) per hpf Urine Opiates Screen Negative (Ggrovw=537) ng/mL Ur Buprenorphine Scrn Negative (Cutoff=5) ng/mL Ur Barbiturates Screen Negative (Qldaeh=898) ng/mL Ur Phencyclidine Scrn Negative (Cutoff=25) ng/mL Ur Amphetamines Screen Negative (Spximd=8379) ng/mL U Benzodiazepines Scrn Negative (Ayhloa=019) ng/mL Urine Cocaine Screen Negative (Cutoff= 300) ng/mL U Marijuana (THC) Screen Negative (Cutoff = 50) ng/mL Ur Drug Screen Interp See Below Ethyl Alcohol (Less than 10) mg/dL - Radiology Data Radiology results reviewed: Yes I reviewed the patient's radiology results. Head CT 01/05/19 20:50 IMPRESSION: No acute intracranial abnormality. D/ / Nataliia Bowman Cha, MD / Nataliia Bowman Cha, MD Interpreting Provider: Nataliia Bowman Cha, MD Chest X-Ray 01/05/19 20:51 IMPRESSION: No radiographic evidence of acute cardiopulmonary disease. D/ / Hudson Gerard / Hudson Gerard Interpreting Provider: Hudson Gerard Abdomen/Pelvis CT 01/05/19 22:53 IMPRESSION: Peripancreatic fat stranding is again identified suggesting acute inflammation. Small hiatal hernia. D/ / Nataliia Bowman Cha, MD / Nataliia Bowman Cha, MD Interpreting Provider: Nataliia Bowman Cha, MD - EKG Data EKG #1 EKG attestation: Yes I reviewed and interpreted this EKG. EKG results narrative: EKG obtained at 01/05/2019 at 2057 ventricular rate of 87, regular rhythm normal axis, RSR prime is noted with T-wave inversions in lead V2 and V3, no ST segment elevation or depression, T-wave inversion inversion in lead V2 and V3 slightly more inverted than prior EKG performed in 12/23/2018.
[2019-01-05 21:49] LABS: Basophils # 0.1 K/mcL (0.0-0.2); Basophils % 0.9 %; Eosinophils # 0.2 K/mcL (0.0-0.6); Eosinophils % 1.8 %; Hematocrit 42.5 % (35.3-44.9); Immature Granulocytes % 0.2 % (0-4); Lymphocytes # 2.9 K/mcL (0.6-4.6); Lymphocytes % 30.5 %; Mean Corpuscular HGB Conc 32.9 g/dL (31.6-35.5); Mean Corpuscular Hemoglobin 29.8 pg (28.0-33.3); Mean Corpuscular Volume 90.4 fL (83.0-100.0); Monocytes # 0.8 K/mcL (0.0-1.3); Neutrophils # 5.5 K/mcL (1.6-8.9); Platelet Count 285 K/mcL (140-400); Red Cell Distribution Width 14.2 % (11.5-14.5); Segmented Neutrophils % 58.6 %; White Blood Count 9.4 K/mcL (4.3-11.1)
[2019-01-05 22:17] LABS: Bilirubin,Urine Small (Negative); Blood,Urine Small (Negative); Clarity,Urine Clear (Clear); Color,Urine Dark Yellow (Yellow); Glucose,Urine (UA) Normal (Normal); Ketones,Urine Negative (Negative); Leukocyte Esterase,Urine Moderate (Negative); Nitrite,Urine Negative (Negative); PH,Urine 5.5 pH Units (5.0-8.0); Protein,Urine 30 mg/dL (Neg-Trace); Specific Gravity,Urine 1.029 (1.010-1.025); Urobilinogen,Urine Normal (Normal)
[2019-01-05 22:19] LABS: Bacteria,Urine None Seen per hpf (None-Few); Hyaline Casts,Urine None Seen per lpf (None-Few); Squamous Epithelial Cell,Urine Many per lpf (None-Few); WBC,Urine 30-50 per hpf (0-3)
[2019-01-05 22:20] LABS: Troponin I < 0.03 ng/mL (< 0.04)
[2019-01-05 22:27] LABS: Amphetamine Screen,Urine Negative ng/mL (Cutoff=1000); Barbiturate Screen,Urine Negative ng/mL (Cutoff=200); Benzodiazepines Screen,Urine Negative ng/mL (Cutoff=200); Cannabinoid Screen,Urine Negative ng/mL (Cutoff = 50); Cocaine Screen,Urine Negative ng/mL (Cutoff= 300); Opiate Screen,Urine Negative ng/mL (Cutoff=300); Phencyclidine Screen,Urine Negative ng/mL (Cutoff=25)
[2019-01-05 22:39] LABS: Calcium Oxalate Crystals,Urine Present; RBC,Urine 0-3 per hpf (0-3); Yeast,Urine Few per hpf (None Seen)
[2019-01-05 22:41] LABS: Alanine Aminotransferase 45 Units/L (7-52); Albumin 3.8 g/dL (3.5-5.7); Albumin/Globulin Ratio 1.4 (1.1-2.2); Alkaline Phosphatase 152 Units/L (34-104); Aspartate Amino Transferase 36 Units/L (13-39); BUN/Creatinine Ratio 27 (6-26); Bilirubin,Direct 0.1 mg/dL (0.0-0.2); Bilirubin,Indirect 0.3 mg/dL (0.0-1.2); Bilirubin,Total 0.4 mg/dL (0.3-1.0); Blood Urea Nitrogen 16 mg/dL (8-23); Calcium 9.8 mg/dL (8.6-10.3); Carbon Dioxide 14 mEq/L (23-29); Chloride 109 mEq/L (98-107); Globulin 2.8 g/dL (2.4-3.5); Glucose 101 mg/dL (70-105); Lipase 25 Units/L (11-82); Osmolality,Calculated 287 (280-300); Potassium 3.4 mEq/L (3.5-5.1); Sodium 138 mEq/L (136-145); Total Protein 6.6 g/dL (6.4-8.9); eGFR For African Americans > 60 (> 60); eGFR For Non-African Americans > 60 (> 60)
[2019-01-06] MEDS ORDERED: Ondansetron 4 MG/2 ML VIAL IVP PRN (01:04)
[2019-01-06] MEDS ORDERED: Naloxone 0.4 MG/ML INJ IVP PRN (01:04)
[2019-01-06] MEDS ORDERED: 0.9 % Sodium Chloride 1,000 ML IVC SCH (01:15)
[2019-01-06 01:22] LABS: VBG HCO3 15 mEq/L (21-27); VBG PCO2 21 mmHg (41-51); VBG PH 7.45 pH Units (7.32-7.42); VBG PO2 228 mmHg (25-50)
--- NOTE | 2019-01-06 03:08 | Internal Med History&Physical ---
Date of Encounter: 01/06/19 Time of Encounter: 03:07 Internal Medicine - H&P: HPI Chief complaint: Abdominal pain/hallucinations History of present illness: Ms. Montoya is a 58 year old female with past medical history of pancreatitis s/p cholecystectomy, HFpEF, GERD, anxiety, depression, bipolar disorder, COPD, migraines who presented to emergency room with complaint of abdominal pain and reported hallucinations. Though patient was A/O x3 on my assessment, she was v luisa confused as to how she came to the hospital and displayed evidence of hallucinations stating at one one stating that her Anesthesiologist was standing in the doorway. Per records, Patient states over the past couple of days she has had mid epigastric abdominal pain, with associated nausea and vomiting with inability to keep food down for the past week. CT scan of the abdomen showed peripancreatic fat stranding suggesting acute inflammation. Lipase level however was within normal limits. Of note, patient has had 2 recent admissions this year for abdominal pain concerning for acute pancreatitis which resulted in transfer to [facility] resulting for drain placement due to previous CT findings of a fluid collection concerning for phlegmon and necrosis. Patient had accidentally removed on 12/23/2018 for which she presented to our ED and was subsequently transferred to [place]. From my assessment no drain was in place. She states that she has been having significant itching throughout her arms and legs and chest and was noted to be itching her hair and face during the history taking. Her family states that she has been having hallucinations reporting things that are not there such as holding when in her hands or drinking from an empty glass believed to have water in it. She denies any recent drug use or alcohol use despite prior history and states she has been c lean for the past 2 years. Urine toxicology was negative. UA did shw On arrival patient was afebrile, hemodynamically stable. Initial laboratory workup was relatively unremarkable including a normal lipase and ammonia level. ABG was unremarkable. Urine was positive for moderate leukocyte esterase. Of note patient did report recent treatment for possible UTI and completed a 10 day course. Past Med Surg Social Fam HX - Past Medical History Medical history: CHF, COPD, GERD, migraine Additional medical history: SNORES Psychiatric history: anxiety, bipolar, depression - Past Surgical History Surgical History: , cholecystectomy, herniorrhaphy, hysterectomy Additional surgical history: D&C. PANCREATIC SURGERY. THORACOTOMY. EGD - Social History Smoking Status: Former smoker Smokeless Tobacco Status: No Alcohol use: none Drug use: none, opiates - Family History Father Living Status: Still Living Hx Family Cardiac Disorders: Yes (heart disease) Mother Adopted: No Family Member Ethnicity: Non- Living Status: Still Living Hx Family Cardiac Disorders: No Hx Family Respiratory Disorders: Yes (short of breath) Hx Family Cancer: No Hx Family GI Disorders: No Hx Family Endocrine Disorder: No Hx Family Neuromuscular Disorders: No Hx Family Neurologic Disorders: No Hx Family HEENT Disorders: No Hx Family Autoimmune Disorders: Yes (hyperthyroid) Grandfather Adopted: No Living Status: Hx Family Cardiac Disorders: Yes Hx Family Cancer: Yes Internal Medicine - H&P: Meds Aspirin [Lo-Dose Aspirin EC] 81 mg PO DAILY 03/13/18 [History] Chlorpromazine HCl 200 mg PO HS 03/13/18 [History] PARoxetine HCl [Paroxetine HCl] 60 mg PO QAM 03/13/18 [History] Ropinirole HCl [Requip] 1 mg PO HS 03/13/18 [History] Allergy/AdvReac Type Severity Reaction Status Date / Time sulfamethoxazole Allergy Intermediate Blister Verified 01/06/19 17:02 [From Bactrim] metoclopramide [From Reglan] Allergy Mild Itching Verified 01/06/19 17:02 amitriptyline Allergy Itching Verified 01/06/19 17:02 Sulfa (Sulfonamide Allergy Blister Verified 01/06/19 17:02 Antibiotics) trimethoprim [From Bactrim] Allergy Blister Verified 01/06/19 17:02 lorazepam [From Ativan] AdvReac Mild Anxiety Verified 01/06/19 17:02 benztropine [From Cogentin] AdvReac See Verified 01/06/19 17:02 Comments ciprofloxacin [From Cipro] AdvReac Blister Verified 01/06/19 17:02 onabotulinumtoxinA AdvReac See Verified 01/06/19 17:02 [From Botox] Comments sertraline [From Zoloft] AdvReac Headache Verified 01/06/19 17:02 sumatriptan [From Imitrex] AdvReac Agitated Verified 01/06/19 17:02 topiramate [From Topamax] AdvReac See Verified 01/06/19 17:02 Comments All Systems PM: A 10-system review of systems was performed and is negative for pertinent findings except as documented above in the HPI. - Constitutional Constitutional: no chills, no fever(s), no night sweats - EENT Eyes: no change in vision, no discharge, no pain, no photophobia Ears: no ear discharge, no ear pain, no tinnitus Nose, mouth and throat: no dysphagia, no nasal discharge, no neck pain, no sore throat - Cardiovascular Cardiovascular ROS IM: no chest pain, no diaphoresis, no dyspnea, no lightheadedness, no palpitations, no syncope - Respiratory Respiratory: no cough, no dyspnea, no wheezing, no excessive phlegm production - Gastrointestinal Gastrointestinal: no abdominal pain, no diarrhea, no hematemesis, no hematochezia, no melena, no nausea, no vomiting - Genitourinary Genitourinary: no change in urinary stream, no dysuria, no flank pain, no hematuria - Musculoskeletal Musculoskeletal ROS IM: no numbness, no tingling - Integumentary Integumentary IM: no rash, no unusual bruising - Neurological Neurological ROS: no confusion, no convulsions, no focal weakness, no numbness, no tingling, no tremor(s) - Hematologic/Lymphatic Hematologic/Lymphatic: no easy bruising - Constitutional Vitals: Temp Pulse Resp BP Pulse Ox 97.5 F L 71 16 109/74 100 01/06/19 00:52 01/06/19 00:52 01/06/19 00:52 01/06/19 00:52 01/06/19 00:52 Exam: General: Alert and oriented 3 lying in bed in no acute distress Skin:Normal color, no rash, no lesions. HEENT:EOM, pupils equal, round and reactive. Cardiovascular:Normal S1 & S2, no rubs, murmurs or gallops. No JVD. Pulse regular. Lungs:Normal breath sounds, no wheezes or crackles. Abdomen:Soft, non-tender, no rigidity. Extremities:No deformity, no edema or tenderness, no joint swelling or clubbing. Neurological:Normal cognition and motor skills. Pulses:Carotid and radial pulses normal +2. Rest of the physical exam is non contributory Internal Med - H&P Results - Labs CBC & Chem 7: 01/06/19 05:29 01/06/19 05:29 Labs: Short CBC 01/05/19 Range/Units 21:37 WBC 9.4 (4.3-11.1) K/mcL Hgb 14.0 (11.5-15.4) g/dL Hct 42.5 (35.3-44.9) % Plt Count 285 (140-400) K/mcL Neutrophils # 5.5 (1.6-8.9) K/mcL BMP 01/05/19 21:37 Sodium 138 Potassium 3.4 L Chloride 109 H Carbon Dioxide 14 L BUN 16 Creatinine 0.59 L Glucose 101 Calcium 9.8 Cardiac Enzymes 01/05/19 Range/Units 21:37 Troponin I < 0.03 (< 0.04) ng/mL Liver Function 01/05/19 Range/Units 21:37 Total Bilirubin 0.4 (0.3-1.0) mg/dL Direct Bilirubin 0.1 (0.0-0.2) mg/dL AST 36 (13-39) Units/L ALT 45 (7-52) Units/L Alkaline Phosphatase 152 H (34-104) Units/L Albumin 3.8 (3.5-5.7) g/dL Urine 01/05/19 Range/Units 22:09 Urine Color Dark Yellow (Yellow) Urine Clarity Clear (Clear) Urine pH 5.5 (5.0-8.0) pH Units Ur Specific [place] 1.029 H (1.010-1.025) Urine Protein 30 H (Neg-Trace) mg/dL Urine Glucose (UA) Normal (Normal) mg/dL - ABG Interpretation ABG results: 01/06/19 01:19 VBG pH 7.45 H VBG pCO2 21 L VBG pO2 228 H VBG HCO3 15 L - Impressions ITS Impressions Head CT 01/05/19 20:50 IMPRESSION: No acute intracranial abnormality. D/ / Nataliia Bowman Cha, MD / Nataliia Bowman Cha, MD Interpreting Provider: Nataliia Bowman Cha, MD Chest X-Ray 01/05/19 20:51 IMPRESSION: No radiographic evidence of acute cardiopulmonary disease. D/ / Hudson Gerard / Hudson Gerard Interpreting Provider: Hudson Gerard Abdomen/Pelvis CT 01/05/19 22:53 IMPRESSION: Peripancreatic fat stranding is again identified suggesting acute inflammation. Small hiatal hernia. D/ / Nataliia Bowman Cha, MD / Nataliia Bowman Cha, MD Interpreting Provider: Nataliia Bowman Cha, MD - Assessment and Plan (1) Altered mental status Current Visit: Yes Status: Acute Assessment and plan: Patient presenting with altered mental status characterized by visual hallucinations. Head CT negative. No apparent toxic or metabolic derangements based on current objective data. Urine toxicology negative. Low suspicion for infectious etiology despite moderate leukocyte esterase on UA. Furthermore, patient recently was recently completed course of antibiotics for suspected UTI. At this time etiology unclear. Given her psychiatric history, there is concern for a psychiatric component to her current presentation. -Follow-up urine culture -We will obtain a psychiatric evaluation Qualifiers: Altered mental status type: unspecified Qualified Code(s): R41.82 - Altered mental status, unspecified (2) Pancreatitis Current Visit: Yes Status: Acute Assessment and plan: History of recurrent pancreatitis presenting with epigastric abdominal pain. Lipase within normal limits. CT scan of the abdomen showing peripancreatic fat stranding concerning for acute inflammation. -Continue IV fluids for now -We will keep patient NPO and reassess in the morning -Antiemetics and pain control as needed Qualifiers: Chronicity: acute Pancreatitis type: unspecified pancreatitis type Acute pancreatitis complication: no infection or necrosis Qualified Code(s): K85.90 - Acute pancreatitis without necrosis or infection, unspecified (3) UTI (urinary tract infection) Current Visit: Yes Status: Acute Assessment and plan: Recent history of UTI having completed a ten-day course of cephalexin. No reports of dysuria. Moderate leukocyte esterase noted on UA. No other evidence of infection. -We will obtain a urine culture -Hold antibiotics for now Qualifiers: Urinary tract infection type: site unspecified Hematuria presence: without hematuria Qualified Code(s): N39.0 - Urinary tract infection, site not specified (4) DVT prophylaxis Current Visit: No Status: Acute - Time Spent With Patient Total time spent is greater than 50% in coordination of care (as documented) at patient's floor/unit and/or counseling patient:
[2019-01-06 04:59] LABS: ABG Base Excess -5 mEq/L (-2 to 3); ABG HCO3 19 mEq/L (21-27); ABG Oxygen Saturation 98 % (95-98); ABG PCO2 32 mmHg (35-45); ABG PH 7.38 pH Units (7.32-7.45); ABG PO2 104 mmHg (85-104); ABG TCO2 20 mEq/L (20-26)
[2019-01-06 05:58] LABS: Hematocrit 36.4 % (35.3-44.9); Mean Corpuscular HGB Conc 32.1 g/dL (31.6-35.5); Mean Corpuscular Hemoglobin 30.1 pg (28.0-33.3); Mean Corpuscular Volume 93.6 fL (83.0-100.0); Mean Platelet Volume 11.5 fL (9.4-12.4); Platelet Count 171 K/mcL (140-400); Red Blood Count 3.89 M/mcL (3.82-4.97); Red Cell Distribution Width 14.6 % (11.5-14.5); White Blood Count 7.1 K/mcL (4.3-11.1)
[2019-01-06 06:04] LABS: Hemoglobin 11.7 g/dL (11.5-15.4)
[2019-01-06 06:10] LABS: Prothrombin Time 11.8 Seconds (9.4-12.1)
[2019-01-06 06:13] LABS: Activated Partial Thrombo Time 41.6 Seconds (26.0-36.0)
[2019-01-06 06:17] LABS: BUN/Creatinine Ratio 24 (6-26); Blood Urea Nitrogen 12 mg/dL (8-23); Calcium 8.2 mg/dL (8.6-10.3); Carbon Dioxide 16 mEq/L (23-29); Chloride 113 mEq/L (98-107); Chol/HDL Ratio 3.5 (0-4.9); Cholesterol 156 mg/dL (< 200); Glucose 101 mg/dL (70-105); HDL Cholesterol 44 mg/dL (40-59); LDL Cholesterol,Calculated 77 mg/dL (0-99); Osmolality,Calculated 292 (280-300); Potassium 3.4 mEq/L (3.5-5.1); Sodium 141 mEq/L (136-145); Triglycerides 173 mg/dL (< 150); eGFR For African Americans > 60 (> 60); eGFR For Non-African Americans > 60 (> 60)
--- NOTE | 2019-01-06 08:52 | Consult Note ---
Date of Encounter: 01/06/19 Time of Encounter: 08:52 Assessment & Recommendation (1) Major depressive disorder with psychotic features Current visit: No Status: Chronic Assessment & Recommendation: Unclear and potentially multifactorial in etiology - may be related to underlying psychiatric conditions; however, cannot exclude her current medical conditions or drug interaction/withdrawal from the differential. Patient presents with visual hallucinations x3 days, which she states are intermittent in nature. She denies any new medications or medication changes; however, review of her outpatient pharmacy records and [facility] documentation is inconsistent. Patient appears to be on multiple medications that could be contributing to this, but with her hospitalization at [facility] a few months ago, it is unclear if some of these medications were discontinued or perhaps titrated down. Recommendations: - Consider use of haldol 5mg QHS, with additional haldol PRN. - Record request submitted for [facility] documentation; this will need to be obtained before other medicaiton recommendations can be made. Patient will likely require long-term use of antipsychotics, particularly given her history. History of Present Illness Requesting Physician: Shamir Gutiérrez MD Reason for consult: AMS with visual hallucinations History of present illness: Ms. Montoya is a 58 year old female with a history of CHF, COPD, GERD, migraines, recurrent pancreatitis, anxiety, depression, and bipolar disorder who presented to the ED for evaluation of abdominal pain and visual hallucinations. Patient has recently had multiple hospitalizations for similar abdominal pain and recurrent pancreatitis, and did require transfer to [facility] back in September this year for drain placement. Psychiatry consult was placed for recommendations regarding patient's visual hallucinations. On evaluation this morning, patient reports that she has been having inte rmittent visual hallucinations x3 days. She states that her hallucinations are always of people, and endorses that they do speak to her, but does not express distress over this. She states that she cannot always tell if her hallucination is real or not, but denies seeing anyone else in the room at this time. She denies separate auditory hallucinations. She states that she has never experienced this before, and denies any recent medication changes. She reports that she has been compliant with her home medication regimen, and denies suicidal or homicidal ideation. CC: Shamir Gutiérrez MD Past Med Surg Social Fam HX - Past Medical History Medical history: CHF, COPD, GERD, migraine - Past Psychiatric History Psychiatric history: Reports: anxiety, bipolar, depression, previous psychiatric hospitalization - Past Surgical History Surgical History: , cholecystectomy, herniorrhaphy, hysterectomy - Social History Smoking Status: Former smoker Smokeless Tobacco Status: No Alcohol use: none Drug use: none, opiates - Family History Father Living Status: Still Living Hx Family Cardiac Disorders: Yes (heart disease) Mother Adopted: No Family Member Ethnicity: Non- Living Status: Still Living Hx Family Cardiac Disorders: No Hx Family Respiratory Disorders: Yes (short of breath) Hx Family Cancer: No Hx Family GI Disorders: No Hx Family Endocrine Disorder: No Hx Family Neuromuscular Disorders: No Hx Family Neurologic Disorders: No Hx Family HEENT Disorders: No Hx Family Autoimmune Disorders: Yes (hyperthyroid) Grandfather Adopted: No Living Status: Hx Family Cardiac Disorders: Yes Hx Family Cancer: Yes Medications & Allergies Aspirin [Lo-Dose Aspirin EC] 81 mg PO DAILY 03/13/18 [History] Chlorpromazine HCl 300 mg PO HS 03/13/18 [History] Doxepin HCl 150 mg PO HS 03/13/18 [History] PARoxetine HCl [Paroxetine HCl] 60 mg PO QAM 03/13/18 [History] Ropinirole HCl [Requip] 1 mg PO HS 03/13/18 [History] Prochlorperazine Maleate [Compazine] 5 mg PO DAILY 07/20/18 [History] Omeprazole [PriLOSEC] 20 mg PO DAILY@0630 #30 capsule. 07/21/18 [Rx] Sucralfate [Carafate] 1 gm PO TID 09/13/18 [History] Tizanidine HCl 4 mg PO BID 09/13/18 [History] Acetaminophen [Tylenol] 650 mg PO Q6HR PRN tablet 10/07/18 [Rx] Ipratropium/Albuterol Neb [Duoneb] 3 ml IH [id number] PRN inhsol 10/07/18 [Rx] Metoprolol [Lopressor] 12.5 mg PO BID tablet 10/07/18 [Rx] Naloxone [Narcan] 0.4 mg IVP Q2MPRN PRN inj 10/07/18 [Rx] Ondansetron [Zofran] 4 mg IVP Q6HR PRN vial 10/07/18 [Rx] Promethazine [Phenergan] 12.5 mg IVP Q4H PRN vial 10/07/18 [Rx] Sucralfate [Carafate] 1 gm GTUBE 0730,1630 ud 10/07/18 [Rx] Promethazine [Phenergan] 25 mg PO Q8HR PRN #8 tablet 12/20/18 [Rx] cephALEXin [Keflex] 500 mg PO QID 10 Days #40 capsule 12/20/18 [Rx] Allergy/AdvReac Type Severity Reaction Status Date / Time sulfamethoxazole Allergy Intermediate Blister Verified 09/12/18 12:43 [From Bactrim] metoclopramide [From Reglan] Allergy Mild Itching Verified 09/12/18 12:43 amitriptyline Allergy Itching Verified 09/12/18 12:43 Sulfa (Sulfonamide Allergy Blister Verified 09/12/18 12:43 Antibiotics) trimethoprim [From Bactrim] Allergy Blister Verified 09/12/18 12:43 lorazepam [From Ativan] AdvReac Mild Anxiety Verified 09/12/18 12:43 benztropine [From Cogentin] AdvReac See Verified 09/12/18 12:43 Comments ciprofloxacin [From Cipro] AdvReac Blister Verified 09/12/18 12:43 onabotulinumtoxinA AdvReac See Verified 09/12/18 12:43 [From Botox] Comments sertraline [From Zoloft] AdvReac Headache Verified 09/12/18 12:43 sumatriptan [From Imitrex] AdvReac Agitated Verified 09/12/18 12:43 topiramate [From Topamax] AdvReac See Verified 09/12/18 12:43 Comments Review of Systems Constitutional: Denies: fever, chills, weakness, weight change Cardiovascular: Denies: chest pain, palpitations, dyspnea on exertion Respiratory: Denies: cough, dyspnea, wheezes Gastrointestinal: Reports: abdominal pain Musculoskeletal: Denies: joint swelling, joint pain Neurological: Reports: confusion. Denies: headache, weakness, numbness, memory loss Psychiatric: Reports: depression, anxiety, visual hallucinations, confusion. Denies: suicidal ideation, homicidal ideation, auditory hallucinations Hematologic/Lymphatic: Denies: easy bruising, lymphadenopathy Psychiatry Exam - Constitutional Vitals: Temp Pulse Resp BP Pulse Ox 97.5 F L 85 15 102/65 97 01/06/19 07:18 01/06/19 07:18 01/06/19 07:18 01/06/19 07:18 01/06/19 07:18 General appearance: age & developmentally appropriate, disheveled, average - Psychiatric Level of alertness: Sedated, Follows commands Behavior: calm, cooperative, distractible Psychomotor activity: Slowed Eye Contact: Diverts Contact Speech Volume: Normal Speech pattern: normal tone, fluent, spontaneous Language & Vocabulary: consistent with education Thought Process: Slowed Thinking Thought Content: No Suicidal ideation, No Homicidal ideation Perceptual Disturbances: Yes Reacting to internal stimuli, Yes Visual hallucinations Attention Span Ability: Capable of Sustained Attention Memory Description: Grossly Intact Patient Reliability: Questionable Historian Results - Drug Levels and Toxicology Drug Levels and Toxicology: Drug Levels and Toxicity 01/05/19 01/05/19 21:37 22:09 Urine Opiates Screen Negative Ur Barbiturates Screen Negative Ur Phencyclidine Scrn Negative Ur Amphetamines Screen Negative U Benzodiazepines Scrn Negative Urine Cocaine Screen Negative U Marijuana (THC) Screen Negative Ethyl Alcohol < 10 - Labs Labs: Laboratory Last Values WBC 7.1 K/mcL (4.3-11.1) 01/06/19 05:29 RBC 3.89 M/mcL (3.82-4.97) 01/06/19 05:29 Hgb 11.7 g/dL (11.5-15.4) D 01/06/19 05:29 Hct 36.4 % (35.3-44.9) 01/06/19 05:29 MCV 93.6 fL (83.0-100.0) 01/06/19 05:29 MCH 30.1 pg (28.0-33.3) 01/06/19 05:29 MCHC 32.1 g/dL (31.6-35.5) 01/06/19 05:29 RDW 14.6 % (11.5-14.5) H 01/06/19 05:29 Plt Count 171 K/mcL (140-400) 01/06/19 05:29 MPV 11.5 fL (9.4-12.4) 01/06/19 05:29 Immature Gran % 0.2 % (0-4) 01/05/19 21:37 Seg Neutrophils % 58.6 % 01/05/19 21:37 Lymphocytes % 30.5 % 01/05/19 21:37 Monocytes % 8.0 % 01/05/19 21:37 Eosinophils % 1.8 % 01/05/19 21:37 Basophils % 0.9 % 01/05/19 21:37 Neutrophils # 5.5 K/mcL (1.6-8.9) 01/05/19 21:37 Lymphocytes # 2.9 K/mcL (0.6-4.6) 01/05/19 21:37 Monocytes # 0.8 K/mcL (0.0-1.3) 01/05/19 21:37 Eosinophils # 0.2 K/mcL (0.0-0.6) 01/05/19 21:37 Basophils # 0.1 K/mcL (0.0-0.2) 01/05/19 21:37 PT 11.8 Seconds (9.4-12.1) 01/06/19 05:29 INR 1.0 01/06/19 05:29 APTT 41.6 Seconds (26.0-36.0) H 01/06/19 05:29 ABG pH 7.38 pH Units (7.32-7.45) 01/06/19 04:56 ABG pCO2 32 mmHg (35-45) L 01/06/19 04:56 ABG pO2 104 mmHg (85-104) 01/06/19 04:56 ABG HCO3 19 mEq/L (21-27) L 01/06/19 04:56 ABG Total CO2 20 mEq/L (20-26) 01/06/19 04:56 ABG O2 Saturation 98 % (95-98) 01/06/19 04:56 ABG Base Excess -5 mEq/L (-2 to 3) L 01/06/19 04:56 VBG pH 7.45 pH Units (7.32-7.42) H 01/06/19 01:19 VBG pCO2 21 mmHg (41-51) L 01/06/19 01:19 VBG pO2 228 mmHg (25-50) H 01/06/19 01:19 VBG HCO3 15 mEq/L (21-27) L 01/06/19 01:19 Inspired O2 21.0 (1-15=lpm [id number]=%) 01/06/19 04:56 Sodium 141 mEq/L (136-145) 01/06/19 05:29 Potassium 3.4 mEq/L (3.5-5.1) L 01/06/19 05:29 Chloride 113 mEq/L (98-107) H 01/06/19 05:29 Carbon Dioxide 16 mEq/L (23-29) L 01/06/19 05:29 BUN 12 mg/dL (8-23) 01/06/19 05:29 Creatinine 0.49 mg/dL (0.60-1.20) L 01/06/19 05:29 Est GFR ( Amer) > 60 (> 60) 01/06/19 05:29 Est GFR (Non-Af Amer) > 60 (> 60) 01/06/19 05:29 BUN/Creatinine Ratio 24 (6-26) 01/06/19 05:29 Glucose 101 mg/dL (70-105) 01/06/19 05:29 POC Glucose 107 mg/dL (70-99) H 01/06/19 05:49 Calculated Osmolality 292 (280-300) 01/06/19 05:29 Lactic Acid 1.8 mmol/L (0.5-2.2) 01/05/19 21:37 Calcium 8.2 mg/dL (8.6-10.3) L 01/06/19 05:29 Total Bilirubin 0.4 mg/dL (0.3-1.0) 01/05/19 21:37 Direct Bilirubin 0.1 mg/dL (0.0-0.2) 01/05/19 21:37 Indirect Bilirubin 0.3 mg/dL (0.0-1.2) 01/05/19 21:37 AST 36 Units/L (13-39) 01/05/19 21:37 ALT 45 Units/L (7-52) 01/05/19 21:37 Alkaline Phosphatase 152 Units/L (34-104) H 01/05/19 21:37 Ammonia 44 mcmol/L (16-53) 01/05/19 21:37 Troponin I < 0.03 ng/mL (< 0.04) 01/05/19 21:37 Serum Total Protein 6.6 g/dL (6.4-8.9) 01/05/19 21:37 Albumin 3.8 g/dL (3.5-5.7) 01/05/19 21:37 Globulin 2.8 g/dL (2.4-3.5) 01/05/19 21:37 Albumin/Globulin Ratio 1.4 (1.1-2.2) 01/05/19 21:37 Triglycerides 173 mg/dL (< 150) H 01/06/19 05:29 Cholesterol 156 mg/dL (< 200) 01/06/19 05:29 LDL Cholesterol, Calc 77 mg/dL (0-99) 01/06/19 05:29 VLDL Cholesterol, Calc 35 mg/dL (< 31) H 01/06/19 05:29 HDL Cholesterol 44 mg/dL (40-59) 01/06/19 05:29 Cholesterol/HDL Ratio 3.5 (0-4.9) 01/06/19 05:29 Lipase 25 Units/L (11-82) 01/05/19 21:37 Urine Color Dark Yellow (Yellow) 01/05/19 22:09 Urine Clarity Clear (Clear) 01/05/19 22:09 Urine pH 5.5 pH Units (5.0-8.0) 01/05/19 22:09 Ur Specific [place] 1.029 (1.010-1.025) H 01/05/19 22:09 Urine Protein 30 mg/dL (Neg-Trace) H 01/05/19 22:09 Urine Glucose (UA) Normal mg/dL (Normal) 01/05/19 22:09 Urine Ketones Negative mg/dL (Negative) 01/05/19 22:09 Urine Blood Small (Negative) H 01/05/19 22:09 Urine Nitrite Negative (Negative) 01/05/19 22:09 Urine Bilirubin Small (Negative) H 01/05/19 22:09 Urine Urobilinogen Normal mg/dL (Normal) 01/05/19 22:09 Ur Leukocyte Esterase Moderate (Negative) H 01/05/19 22:09 Urine Microscopic RBC 0-3 per hpf (0-3) 01/05/19 22:09 Urine Microscopic WBC 30-50 per hpf (0-3) H 01/05/19 22:09 Ur Squamous Epith Cells Many per lpf (None-Few) H 01/05/19 22:09 Calcium Oxalate Crystal Present 01/05/19 22:09 Urine Bacteria None Seen per hpf (None-Few) 01/05/19 22:09 Hyaline Casts None Seen per lpf (None-Few) 01/05/19 22:09 Urine Yeast Few per hpf (None Seen) H 01/05/19 22:09 Urine Opiates Screen Negative ng/mL (Xhhmri=131) 01/05/19 22:09 Ur Buprenorphine Scrn Negative ng/mL (Cutoff=5) 01/05/19 22:09 Ur Barbiturates Screen Negative ng/mL (Jqphzp=456) 01/05/19 22:09 Ur Phencyclidine Scrn Negative ng/mL (Cutoff=25) 01/05/19 22:09 Ur Amphetamines Screen Negative ng/mL (Ddsgrv=8850) 01/05/19 22:09 U Benzodiazepines Scrn Negative ng/mL (Pgrcxp=757) 01/05/19 22:09 Urine Cocaine Screen Negative ng/mL (Cutoff= 300) 01/05/19 22:09 U Marijuana (THC) Screen Negative ng/mL (Cutoff = 50) 01/05/19 22:09 Ur Drug Screen Interp See Below 01/05/19 22:09 Ethyl Alcohol < 10 mg/dL (Less than 10) 01/05/19 21:37 - Impressions Impressions Head CT 01/05/19 20:50 IMPRESSION: No acute intracranial abnormality. D/ / Nataliia Bowman Cha, MD / Nataliia Bowman Cha, MD Interpreting Provider: Nataliia Bowman Cha, MD Chest X-Ray 01/05/19 20:51 IMPRESSION: No radiographic evidence of acute cardiopulmonary disease. D/ / Hudson Gerard / Hudson Gerard Interpreting Provider: Hudson Gerard Abdomen/Pelvis CT 01/05/19 22:53 IMPRESSION: Peripancreatic fat stranding is again identified suggesting acute inflammation. Small hiatal hernia. D/ / Nataliia Bowman Cha, MD / Nataliia Bowman Cha, MD Interpreting Provider: Nataliia Bowman Cha, MD Consult Discharge Plan - Plan Referrals: Iman Monae, COPPERSMITH HELPER [Primary Care Provider] - - Attending Attestation I examined this patient and my medical decision-making was reviewed with the Resident Physician. I agree with the documented findings, disposition and treatment plan as described except to the extent set forth below. Patient is a very poor historian. Recommend trying to get records from [facility] to see if they have adjusted her psychiatric medications as it is unclear from her pharmacy records what her current medication dosage should be. Once we have that information we can try to see about getting her back on her home chlorpromazine and paroxetine. At this time I would recommend just using Haldol 5 mg by mouth daily at bedtime for her psychosis and an additional 5 mg Q8 hours as needed. It is difficult to tell currently if the exacerbation of her hallucinations and her responding to internal stimuli related to her underlying mental health condition or her medical conditions. Psychiatry will continue to follow.
[2019-01-06] MEDS: Ketorolac 15 MG/ML VIAL IVP PRN ×2 (09:56→18:48)
[2019-01-06] MEDS: Potassium Chloride Elixir 20 MEQ/15 ML UDC PO ONE ×2 (10:05→10:56)
--- NOTE | 2019-01-06 11:02 | Event Note ---
Date of Encounter: 01/06/19 Time of Encounter: 11:00 Patient was seen and examined at bedside today. Patient complains of abdominal pain. Patient denied any nausea and vomiting. Patient was admitted overnight for pancreatitis. Patient had recent hospitalization twice for pancreatitis in past couple of months. The patient she was transferred to review her side at last admission. We will continue pain management, IV hydration. We will advance diet as tolerated. Patient has a history of depression with psychosis and was exhibiting signs of psychosis with you with visual hallucination at admission. Psychiatry consult placed. Psychiatry advised to hold off on Paxil and Thorazine until her echo is received from [facility]. Patient was placed on Haldol at bedtime for psychosis. And patient was also placed on Haldol when necessary for psychosis. We will continue to monitor throughout the day.
[2019-01-06] MEDS: Pantoprazole 40 MG VIAL IVP SCH (11:43)
[2019-01-06] MEDS: rOPINIRole 1 MG TABLET PO SCH (21:35)
[2019-01-06] MEDS: *HR* HYDROcodone/Acet 10/325 mg TABLET PO PRN (22:00)
[2019-01-07] MEDS: *HR* HYDROcodone/Acet 10/325 mg TABLET PO PRN ×2 (04:13→19:01)
[2019-01-07 04:52] LABS: Basophils % 0.7 %; Eosinophils # 0.2 K/mcL (0.0-0.6); Eosinophils % 4.1 %; Hematocrit 35.7 % (35.3-44.9); Hemoglobin 11.1 g/dL (11.5-15.4); Immature Granulocytes % 0.2 % (0-4); Lymphocytes # 1.8 K/mcL (0.6-4.6); Lymphocytes % 31.7 %; Mean Corpuscular HGB Conc 31.1 g/dL (31.6-35.5); Mean Corpuscular Hemoglobin 29.7 pg (28.0-33.3); Mean Corpuscular Volume 95.5 fL (83.0-100.0); Monocytes # 0.5 K/mcL (0.0-1.3); Monocytes % 8.2 %; Neutrophils # 3.1 K/mcL (1.6-8.9); Red Blood Count 3.74 M/mcL (3.82-4.97); Red Cell Distribution Width 14.4 % (11.5-14.5); Segmented Neutrophils % 55.1 %; White Blood Count 5.6 K/mcL (4.3-11.1)
[2019-01-07 05:14] LABS: Alanine Aminotransferase 33 Units/L (7-52); Albumin 3.2 g/dL (3.5-5.7); Albumin/Globulin Ratio 1.5 (1.1-2.2); Alkaline Phosphatase 120 Units/L (34-104); Amylase 33 Units/L (29-103); Aspartate Amino Transferase 36 Units/L (13-39); BUN/Creatinine Ratio 13 (6-26); Bilirubin,Total 0.4 mg/dL (0.3-1.0); Blood Urea Nitrogen 7 mg/dL (8-23); Calcium 8.7 mg/dL (8.6-10.3); Carbon Dioxide 18 mEq/L (23-29); Chloride 114 mEq/L (98-107); Globulin 2.2 g/dL (2.4-3.5); Glucose 81 mg/dL (70-105); Lipase 19 Units/L (11-82); Osmolality,Calculated 285 (280-300); Potassium 3.6 mEq/L (3.5-5.1); Sodium 139 mEq/L (136-145); Total Protein 5.4 g/dL (6.4-8.9); eGFR For African Americans > 60 (> 60); eGFR For Non-African Americans > 60 (> 60)
[2019-01-07 05:52] LABS: Platelet Count 145 K/mcL (140-400)
[2019-01-07] MEDS: Aspirin Enteric Coated 81 MG Tablet PO SCH (08:35)
[2019-01-07] MEDS: Pantoprazole 40 MG VIAL IVP SCH (08:35)
[2019-01-07] MEDS: Ketorolac 15 MG/ML VIAL IVP PRN ×2 (08:37→21:33)
--- NOTE | 2019-01-07 11:48 | Psychiatry Progress Note ---
Date of Encounter: 01/07/19 Time of Encounter: 11:00 Subjective Interval history: Patient continues to have some periods of psychotic symptoms including delusional thinking and visual and auditory hallucinations. I did get her [facility] records and it looked like their plan was to get her back on her home doses over time. I will restart her Thorazine at 100 mg by mouth daily at bedtime and her Paxil at 60. We will continue to follow to see how she is progressing with this medication. I did stop her scheduled Haldol. She does not seem agitated at despite her symptoms and is very cooperative. Review of Systems Psychiatric: Reports: anxiety, auditory hallucinations, visual hallucinations, confusion. Denies: suicidal ideation, homicidal ideation Results - Vital Signs Vital Signs: Temp Pulse Resp BP Pulse Ox 97.4 F L 82 16 99/63 97 01/07/19 08:18 01/07/19 08:18 01/07/19 08:18 01/07/19 08:18 01/07/19 08:40 - Labs Labs: Laboratory Results - last 24 hr 01/06/19 01/07/19 01/07/19 11:42 03:49 03:49 WBC 5.6 RBC 3.74 L Hgb 11.1 L Hct 35.7 MCV 95.5 MCH 29.7 MCHC 31.1 L RDW 14.4 Plt Count 145 MPV 11.0 Immature Gran % 0.2 Seg Neutrophils % 55.1 Lymphocytes % 31.7 Monocytes % 8.2 Eosinophils % 4.1 Basophils % 0.7 Neutrophils # 3.1 Lymphocytes # 1.8 Monocytes # 0.5 Eosinophils # 0.2 Basophils # 0.0 Sodium 139 Potassium 3.6 Chloride 114 H Carbon Dioxide 18 L BUN 7 L Creatinine 0.52 L Est GFR ( Amer) > 60 Est GFR (Non-Af Amer) > 60 BUN/Creatinine Ratio 13 Glucose 81 POC Glucose 96 Calculated Osmolality 285 Calcium 8.7 Total Bilirubin 0.4 AST 36 ALT 33 Alkaline Phosphatase 120 H Serum Total Protein 5.4 L Albumin 3.2 L Globulin 2.2 L Albumin/Globulin Ratio 1.5 Amylase 33 Lipase 19 - Impressions ITS Impressions Head CT 01/05/19 20:50 IMPRESSION: No acute intracranial abnormality. D/ / Nataliia Bowman Cha, MD / Nataliia Bowman Cha, MD Interpreting Provider: Nataliia Bowman Cha, MD Chest X-Ray 01/05/19 20:51 IMPRESSION: No radiographic evidence of acute cardiopulmonary disease. D/ / Hudson Gerard / Hudson Greard Interpreting Provider: Hudson Gerard Abdomen/Pelvis CT 01/05/19 22:53 IMPRESSION: Peripancreatic fat stranding is again identified suggesting acute inflammation. Small hiatal hernia. D/ / Nataliia Bowman Cha, MD / Nataliia Bowman Cha, MD Interpreting Provider: Nataliia Bowman Cha, MD Assessment and Plan (1) Major depressive disorder with psychotic features Current visit: No Status: Chronic Additional Plan: Patient continues to have some periods of psychotic symptoms including delusional thinking and visual and auditory hallucinations. I did get her [facility] records and it looked like their plan was to get her back on her home doses of psychiatric medications time. I will restart her Thorazine at 100 mg by mouth daily at bedtime and her Paxil at 30. We will continue to follow to see how she is progressing with this medication. I did stop her scheduled Haldol. She does not seem agitated at despite her symptoms and is very cooperative. Risks, benefits, side effects, alternatives discussed w/pt: Yes Patient agreeable to treatment: Yes Consult Discharge Plan - Plan Referrals: Iman Monae FIRST HELPER [Primary Care Provider] - Psychiatry Exam - Constitutional Vitals: Temp Pulse Resp BP Pulse Ox 97.4 F L 82 16 99/63 97 01/07/19 08:18 01/07/19 08:18 01/07/19 08:18 01/07/19 08:18 01/07/19 08:40 General appearance: disheveled - Musculoskeletal Gait: other (In bed) Station: stooped Strength & Tone: mild weakness - Psychiatric Patient Orientation: Yes Person, Yes Time, Yes Place Level of alertness: Alert Behavior: guarded, withdrawn Psychomotor activity: Slowed Eye Contact: Minimal Contact Mood Description: Depressed Affect description: flat Speech Volume: Soft/Quiet Speech pattern: slowed Language & Vocabulary: consistent with education Thought Process: Thought Blocking Thought Content: No Suicidal ideation, No Homicidal ideation, Yes Paranoid delusion Perceptual Disturbances: Yes Auditory hallucinations, Yes Visual hallucinations Attention Span Ability: Capable of Focused Attention Memory Description: Grossly Intact Patient Reliability: Questionable Historian Fund of knowledge: Yes average Intelligence Estimate: Average Judgment: Fair Insight: Partial
--- NOTE | 2019-01-07 12:41 | Internal Med Progress Note ---
Hospitalist Progress Note - Encounter Date of Encounter: 01/07/19 Time of Encounter: 12:38 - Subjective Interval History: Patient was seen and examined at bedside today. Patient reports UPPER abdominal pain, 5-6/10 in severeity, non-radiating and with out any aggravating and relieving factors. Patient had episode of psychosis yesterday in the evening a nd received Haldol one time. Records from her divorce reviewed today. Patient was placed on his routin medication of Thorazine 100 at bed time and paxil 30 daily - Exam Vitals: Temp Pulse Resp BP Pulse Ox 98.1 F 80 14 97/63 99 01/07/19 11:51 01/07/19 11:51 01/07/19 11:51 01/07/19 11:51 01/07/19 11:51 Exam: General: In no acute distress Skin:Normal color, no rash, no lesions. HEENT:EOM, pupils equal, round and reactive. Cardiovascular:Normal S1 & S2, no rubs, murmurs or gallops. No JVD. Pulse regular. Lungs:Normal breath sounds, no wheezes or crackles. Abdomen:Soft, non-tender, no rigidity. Extremities:No deformity, no edema or tenderness, no joint swelling or clubbing. Neurological:Normal cognition and motor skills. Pschiatry: A and O X 3 - Assessment and Plan (1) Major depressive disorder with psychotic features Current Visit: No Status: Acute Assessment and Plan: Patients presented to the emergency department complaining of abdominal pain. Patient also has a history of major depressive disorder. On initial evaluation patient found to have acute pancreatitis. However patient started to have visual and auditory hallucination. Psychiatry consult placed. Patient was initially placed on Haldol at bedtime and Haldol as needed for psychotic features. Patient's record from [facility] requested. Patient recommended from [place] were reviewed today. I personally reviewed records from [email or web address]. Psychiatry also reviewed records today and placed her on Thorazine 100 mg pO at bed time and Paxil 30 daily. WIll continue to monitor. (2) Pancreatitis Current Visit: Yes Status: Acute Assessment and Plan: We will continue IV hydration and pain control. We will continue to advance diet as tolerated. Patient is currently on full liquid diet. Will continue to monitor (3) UTI (urinary tract infection) Current Visit: Yes Status: Acute Assessment and Plan: Patient recently finished course of antibiotic for her urinary tract infection. Patient does not have any signs and symptoms of UTI. Urine culture has been collected at admission. Will follow urine culture. No antibiotic at this time since patient is asymptomatic. (4) DVT prophylaxis Current Visit: No Status: Acute Assessment and Plan: EPCD DVT Prophylaxis: EPCD - Time Spent with Patient Total time spent is greater than 50% in coordination of care (as documented) at patient's floor/unit and/or counseling patient: Internal Medicine: Result - Labs CBC & Chem 7: 01/07/19 03:49 01/07/19 03:49 Labs: Short CBC 01/07/19 Range/Units 03:49 WBC 5.6 (4.3-11.1) K/mcL Hgb 11.1 L (11.5-15.4) g/dL Hct 35.7 (35.3-44.9) % Plt Count 145 (140-400) K/mcL Neutrophils # 3.1 (1.6-8.9) K/mcL BMP 01/07/19 03:49 Sodium 139 Potassium 3.6 Chloride 114 H Carbon Dioxide 18 L BUN 7 L Creatinine 0.52 L Glucose 81 Calcium 8.7 Liver Function 01/07/19 Range/Units 03:49 Total Bilirubin 0.4 (0.3-1.0) mg/dL AST 36 (13-39) Units/L ALT 33 (7-52) Units/L Alkaline Phosphatase 120 H (34-104) Units/L Albumin 3.2 L (3.5-5.7) g/dL - ABG Interpretation ABG results: ABG ABG pH 7.38 pH Units (7.32-7.45) 01/06/19 04:56 ABG pCO2 32 mmHg (35-45) L 01/06/19 04:56 ABG pO2 104 mmHg (85-104) 01/06/19 04:56 ABG O2 Saturation 98 % (95-98) 01/06/19 04:56 PT/INR, D-dimer PT 11.8 Seconds (9.4-12.1) 01/06/19 05:29 Consult Discharge Plan - Plan Referrals: Iman Monae, AGRICULTURAL EXTENSION AGENT [Primary Care Provider] - (2) Pancreatitis Qualifiers: Chronicity: acute Pancreatitis type: unspecified pancreatitis type Acute pancreatitis complication: no infection or necrosis Qualified Code(s): K85.90 - Acute pancreatitis without necrosis or infection, unspecified (3) UTI (urinary tract infection) Qualifiers: Urinary tract infection type: site unspecified Hematuria presence: without hematuria Qualified Code(s): N39.0 - Urinary tract infection, site not specified
[2019-01-07] MEDS ORDERED: chlorproMAZINE 25 MG TABLET PO SCH (21:00)
[2019-01-07] MEDS: rOPINIRole 1 MG TABLET PO SCH (21:33)
[2019-01-08] MEDS: *HR* HYDROcodone/Acet 10/325 mg TABLET PO PRN ×2 (02:50→09:29)
[2019-01-08] MEDS: Aspirin Enteric Coated 81 MG Tablet PO SCH (07:33)
[2019-01-08 10:08] VITALS: BP 117/70
--- NOTE | 2019-01-08 10:32 | Electrocardiograph Report ---
[address] [place], [place] [address] Test Date: 2019-01-05 Pat Name: Angela Montoya Department: EXAM1 Room: 3A32 Gender: F Technology Architect: : [id number] Requested By: Serene Chacko Order Number: [id number] Reading MD: Shukri Cook Measurements Intervals [place] Rate: 87 P: 30 MD: 138 QRS: 21 QRSD: 93 T: 0 QT: 399 QTc: 480 Interpretive Statements Sinus rhythm Anteroseptal ST-T changes, consider ischemia Electronically Signed On 01-08-2019 10:31:05 EDT by Shukri Cook
--- NOTE | 2019-01-08 11:33 | Psychiatry Progress Note ---
Date of Encounter: 01/08/19 Time of Encounter: 11:15 Subjective Interval history: From a mental health standpoint patient seems to be doing better now that she is back on her Paxil and Thorazine. She does not appear to be responding to internal stimuli at this time. She was pleasant and joking appropriately with me. She was alert and oriented 4. Review of Systems Psychiatric: Denies: suicidal ideation, homicidal ideation Results - Vital Signs Vital Signs: Temp Pulse Resp BP Pulse Ox 97.7 F 111 16 117/70 99 01/08/19 10:05 01/08/19 10:05 01/08/19 10:05 01/08/19 10:05 01/08/19 10:05 - Impressions ITS Impressions Head CT 01/05/19 20:50 IMPRESSION: No acute intracranial abnormality. D/ / Nataliia Bowman Cha, MD / Nataliia Bowman Cha, MD Interpreting Provider: Nataliia Bowman Cha, MD Chest X-Ray 01/05/19 20:51 IMPRESSION: No radiographic evidence of acute cardiopulmonary disease. D/ / Hudson Gerard / Hudson Gerard Interpreting Provider: Hudson Gerard Abdomen/Pelvis CT 01/05/19 22:53 IMPRESSION: Peripancreatic fat stranding is again identified suggesting acute inflammation. Small hiatal hernia. D/ / Nataliia Bowman Cha, MD / Nataliia Bowman Cha, MD Interpreting Provider: Nataliia Bowman Cha, MD Assessment and Plan (1) Major depressive disorder with psychotic features Current visit: No Status: Acute Additional Plan: From a mental health standpoint patient seems to be doing better now that she is back on her Paxil and Thorazine. She does not appear to be responding to internal stimuli at this time. She was pleasant and joking appropriately with me. She was alert and oriented 4. At this time psychiatry will sign off. Please reconsult us if we can be of further assistance. Risks, benefits, side effects, alternatives discussed w/pt: Yes Patient agreeable to treatment: Yes Consult Discharge Plan - Plan Referrals: Iman Monae PRODUCTION STAFF WORKER [Primary Care Provider] - Psychiatry Exam - Constitutional Vitals: Temp Pulse Resp BP Pulse Ox 97.7 F 111 16 117/70 99 01/08/19 10:05 01/08/19 10:05 01/08/19 10:05 01/08/19 10:05 01/08/19 10:05 General appearance: age & developmentally appropriate - Musculoskeletal Gait: other (In bed) Station: relaxed Strength & Tone: mild weakness - Psychiatric Patient Orientation: Yes Person, Yes Time, Yes Place, Yes Circumstance Level of alertness: Alert Behavior: calm Psychomotor activity: Normal Eye Contact: Maintains Eye Contact Mood Description: Euthymic/stable Patient description of mood: Good Affect description: congruent with mood, full range Speech Volume: Normal Speech pattern: normal rate, normal rhythm, normal tone, fluent, spontaneous Language & Vocabulary: consistent with education Thought Process: Linear, Goal Oriented Thought Content: No Suicidal ideation, No Homicidal ideation, No Overt delusions Perceptual Disturbances: No Auditory hallucinations, No Visual hallucinations Attention Span Ability: Capable of Focused Attention Memory Description: Grossly Intact Patient Reliability: Reliable Historian Fund of knowledge: Yes abstraction ability, Yes aware of current events Intelligence Estimate: Average Judgment: Good Insight: Full
[2019-01-08 11:52] LABS: Basophils # 0.1 K/mcL (0.0-0.2); Basophils % 0.8 %; Eosinophils # 0.2 K/mcL (0.0-0.6); Eosinophils % 3.1 %; Hematocrit 33.4 % (35.3-44.9); Hemoglobin 10.6 g/dL (11.5-15.4); Immature Granulocytes % 0.3 % (0-4); Lymphocytes # 1.1 K/mcL (0.6-4.6); Mean Corpuscular HGB Conc 31.7 g/dL (31.6-35.5); Mean Corpuscular Hemoglobin 30.1 pg (28.0-33.3); Mean Corpuscular Volume 94.9 fL (83.0-100.0); Mean Platelet Volume 9.7 fL (9.4-12.4); Monocytes # 0.4 K/mcL (0.0-1.3); Monocytes % 6.4 %; Neutrophils # 4.4 K/mcL (1.6-8.9); Platelet Count 169 K/mcL (140-400); Red Blood Count 3.52 M/mcL (3.82-4.97); Red Cell Distribution Width 14.3 % (11.5-14.5); Segmented Neutrophils % 71.4 %; White Blood Count 6.2 K/mcL (4.3-11.1)
[2019-01-08 12:38] LABS: Amylase 26 Units/L (29-103); BUN/Creatinine Ratio 13 (6-26); Blood Urea Nitrogen 7 mg/dL (8-23); Calcium 8.4 mg/dL (8.6-10.3); Carbon Dioxide 22 mEq/L (23-29); Chloride 111 mEq/L (98-107); Glucose 96 mg/dL (70-105); Lipase 13 Units/L (11-82); Osmolality,Calculated 288 (280-300); Potassium 3.7 mEq/L (3.5-5.1); Sodium 140 mEq/L (136-145); eGFR For African Americans > 60 (> 60); eGFR For Non-African Americans > 60 (> 60)
--- NOTE | 2019-01-08 13:47 | Discharge Summary ---
- NOTES TO OUTPATIENT PROVIDER Notes to Outpatient Provider: She was admitted for acute pancreatitis. Patient responded well to pain control and fluid hydration initially. Patient tolerated oral challenge. Patient diet was advanced as tolerated. Patient tolerated the regular diet. Patient will be discharged home. Patient's hospital course was complicated by her developing visual hallucination. History of depression with psychotic feature. Psychiatry was consulted. Patient will be discharged on her home medication of Thorazine and Paxil. Follow up outpatient with primary care provider within one week. Follow up outpatient with psychiatry. Estimated PT Needs at Discharge: Home Health Date of Encounter: 01/08/19 Time of Encounter: 13:46 - Discharge Diagnosis (1) Pancreatitis Priority: Primary Status: Acute Qualifiers: Chronicity: acute Pancreatitis type: unspecified pancreatitis type Acute pancreatitis complication: no infection or necrosis Qualified Code(s): K85.90 - Acute pancreatitis without necrosis or infection, unspecified (2) Major depressive disorder with psychotic features Priority: Secondary Status: Acute (3) UTI (urinary tract infection) Priority: Secondary Status: Acute Qualifiers: Urinary tract infection type: site unspecified Hematuria presence: without hematuria Qualified Code(s): N39.0 - Urinary tract infection, site not specified (4) DVT prophylaxis Priority: Secondary Status: Acute Hospital course: Ms. Montoya is a 58 year old female was admitted for acute pancreatitis. Patient responded well to pain control and fluid hydration initially. Patient tolerated oral challenge. Patient diet was advanced as tolerated. Patient tolerated the regular diet. Patient will be discharged home. Patient's hospital course was complicated by her developing visual hallucination. History of depression with psychotic feature. Psychiatry was consulted. Patient will be discharged on her home medication of Thorazine and Paxil. Follow up outpatient with primary care provider within one week. Follow up outpatient with psychiatrist, Dr. Doyle at [facility] within 1 week. Discharge discussed with: patient, nurse, social work, case management, financial reporting consultant - Time Spent with Patient Total time spent providing and/or coordinating discharge services: 35 Time spent: Greater than 30 minutes - Discharge Medications Prescriptions: Continued Aspirin [Lo-Dose Aspirin EC] 81 mg PO DAILY Ropinirole HCl [Requip] 1 mg PO HS PARoxetine HCl [Paroxetine HCl] 60 mg PO QAM 15 Days #15 tablet Changed chlorproMAZINE [Thorazine] 100 mg PO HS 7 Days #7 tablet Home Medications: Aspirin [Lo-Dose Aspirin EC] 81 mg PO DAILY 03/13/18 [History] Ropinirole HCl [Requip] 1 mg PO HS 03/13/18 [History] PARoxetine HCl [Paroxetine HCl] 60 mg PO QAM 15 Days #15 tablet 01/08/19 [Rx] chlorproMAZINE [Thorazine] 100 mg PO HS 7 Days #7 tablet 01/08/19 [Rx] Allergies/Adverse Reactions: Allergy/AdvReac Type Severity Reaction Status Date / Time sulfamethoxazole Allergy Intermediate Blister Verified 01/06/19 17:02 [From Bactrim] metoclopramide [From Reglan] Allergy Mild Itching Verified 01/06/19 17:02 amitriptyline Allergy Itching Verified 01/06/19 17:02 Sulfa (Sulfonamide Allergy Blister Verified 01/06/19 17:02 Antibiotics) trimethoprim [From Bactrim] Allergy Blister Verified 01/06/19 17:02 lorazepam [From Ativan] AdvReac Mild Anxiety Verified 01/06/19 17:02 benztropine [From Cogentin] AdvReac See Verified 01/06/19 17:02 Comments ciprofloxacin [From Cipro] AdvReac Blister Verified 01/06/19 17:02 onabotulinumtoxinA AdvReac See Verified 01/06/19 17:02 [From Botox] Comments sertraline [From Zoloft] AdvReac Headache Verified 01/06/19 17:02 sumatriptan [From Imitrex] AdvReac Agitated Verified 01/06/19 17:02 topiramate [From Topamax] AdvReac See Verified 01/06/19 17:02 Comments Date of admission: 01/06/19 00:19 Primary care physician: Iman Monae CNP Consults: 01/06/19 01:29 Consult to [place] [CONS] Routine Reason for SW Consult: potiential need for community resources 01/06/19 04:50 Consult to Psychiatry [CONS] Routine Consulting Provider: Psychiatry Patty Reason consult: Altered mental status Other reason and/or additional details: AMS with Hallucinations. No other significant organic etiology at this time. Call Completed: No Discharging clinician: Shamir Gutiérrez - Constitutional Vitals: Temp Pulse Resp BP Pulse Ox 97.7 F 111 16 117/70 99 01/08/19 10:05 01/08/19 10:05 01/08/19 10:05 01/08/19 10:05 01/08/19 10:05 General appearance: Present: cooperative, A&O X 3 Exam: General: In no acute distress Skin:Normal color, no rash, no lesions. HEENT:EOM, pupils equal, round and reactive. Cardiovascular:Normal S1 & S2, no rubs, murmurs or gallops. No JVD. Pulse regular. Lungs:Normal breath sounds, no wheezes or crackles. Abdomen:Soft, non-tender, no rigidity. Extremities:No deformity, no edema or tenderness, no joint swelling or clubbing. Neurological:Normal cognition and motor skills. Pschiatry: A and O X 3 - Patient Status Disposition: Home Health Service Condition: Good Functional capacity at discharge: uses cane/walker Overall status at discharge: patient is progressing back to baseline - Discharge Instructions Follow Up With: Iman Monae, CAR STORER [Primary Care Provider] - - Diet and Activity Activity: as per physical therapy, increase activity as tolerated Diet: regular diet
--- NOTE | 2019-01-08 13:58 | Physician Discharge Referral ---
Home Health/Hosp Referral Info Transfer to: Home Health Provider in Charge Post Discharge: PCP - Diagnosis (1) Pancreatitis Priority: Primary Status: Acute (2) Major depressive disorder with psychotic features Priority: Secondary Status: Acute (3) UTI (urinary tract infection) Priority: Secondary Status: Acute (4) DVT prophylaxis Priority: Secondary Status: Acute - Respiratory Orders Smoking Cessation: Smoking cessation has been advised. For more information, call the [place] Tobacco Quit Line at 5-538-TZDD-NOW. - Diet/Nutrition Diet/Nutrition Orders: Regular - Activity Activity Orders: Ambulate - Services Needed Following services are medically necessary services: Nursing, Home Health Aide, Physical Therapy, Occupational Therapy - Transfer Medications Prescriptions: PARoxetine HCl [Paroxetine HCl] 60 mg PO QAM 15 Days #15 tablet chlorproMAZINE [Thorazine] 100 mg PO HS 7 Days #7 tablet Home Medications: Aspirin [Lo-Dose Aspirin EC] 81 mg PO DAILY 03/13/18 [History] Ropinirole HCl [Requip] 1 mg PO HS 03/13/18 [History] PARoxetine HCl [Paroxetine HCl] 60 mg PO QAM 15 Days #15 tablet 01/08/19 [Rx] chlorproMAZINE [Thorazine] 100 mg PO HS 7 Days #7 tablet 01/08/19 [Rx] Allergies/Adverse Reactions: Allergy/AdvReac Type Severity Reaction Status Date / Time sulfamethoxazole Allergy Intermediate Blister Verified 01/06/19 17:02 [From Bactrim] metoclopramide [From Reglan] Allergy Mild Itching Verified 01/06/19 17:02 amitriptyline Allergy Itching Verified 01/06/19 17:02 Sulfa (Sulfonamide Allergy Blister Verified 01/06/19 17:02 Antibiotics) trimethoprim [From Bactrim] Allergy Blister Verified 01/06/19 17:02 lorazepam [From Ativan] AdvReac Mild Anxiety Verified 01/06/19 17:02 benztropine [From Cogentin] AdvReac See Verified 01/06/19 17:02 Comments ciprofloxacin [From Cipro] AdvReac Blister Verified 01/06/19 17:02 onabotulinumtoxinA AdvReac See Verified 01/06/19 17:02 [From Botox] Comments sertraline [From Zoloft] AdvReac Headache Verified 09/11/19 17:02 sumatriptan [From Imitrex] AdvReac Agitated Verified 01/06/19 17:02 topiramate [From Topamax] AdvReac See Verified 01/06/19 17:02 Comments Certification: Further, I certify that my clinical findings support that this patient is homebound (i.e. absences from home require considerable and taxing effort and a re for medical reasons or jewish services or infrequently or short duration when for other reasons) because: Homebound Reason: Patient requires assistance of a person or device to safely leave home Attestation: My signature below is to certify that this patient is under my care and that I, or nurse practitioner, or a physician's fiscal assistant working with me, has a [id number] encounter with this patient.
== END 2019-01-08 15:56 | disposition home health service (06) ==
LOC: EMEROOARM 20:40 → 3ANU 20:40 → SUATTDRO 01-06 00:19 → 3ANU 01-06 00:40
PROVIDERS: ADMIT Internal Medicine; ATTEND Family Medicine

== ENCOUNTER 2019-01-24 19:32 | Observation (INO) ==
[2019-01-24] MEDS ORDERED: 0.9 % Sodium Chloride 1,000 ML IVC ONE ×2 (19:41→23:12)
[2019-01-24] MEDS ORDERED: Ondansetron 4 MG/2 ML VIAL IVP ONE (19:41)
[2019-01-24] MEDS ORDERED: Morphine Sulfate 2 MG/ML SYRINGE IVP ONE ×2 (19:41→23:11)
[2019-01-24 20:21] LABS: Basophils # 0.1 K/mcL (0.0-0.2); Basophils % 0.5 %; Eosinophils # 0.1 K/mcL (0.0-0.6); Eosinophils % 0.9 %; Hematocrit 44.4 % (35.3-44.9); Immature Granulocytes % 0.5 % (0-4); Lymphocytes # 2.3 K/mcL (0.6-4.6); Lymphocytes % 15.7 %; Mean Corpuscular HGB Conc 33.8 g/dL (31.6-35.5); Mean Corpuscular Hemoglobin 31.1 pg (28.0-33.3); Mean Corpuscular Volume 91.9 fL (83.0-100.0); Mean Platelet Volume 9.3 fL (9.4-12.4); Monocytes # 0.8 K/mcL (0.0-1.3); Monocytes % 5.2 %; Neutrophils # 11.4 K/mcL (1.6-8.9); Platelet Count 357 K/mcL (140-400); Red Blood Count 4.83 M/mcL (3.82-4.97); Red Cell Distribution Width 13.7 % (11.5-14.5); Segmented Neutrophils % 77.2 %; White Blood Count 14.8 K/mcL (4.3-11.1)
[2019-01-24 20:28] LABS: Bilirubin,Urine Negative (Negative); Blood,Urine Negative (Negative); Color,Urine Yellow (Yellow); Glucose,Urine (UA) Normal (Normal); Ketones,Urine Trace mg/dL (Negative); Leukocyte Esterase,Urine Moderate (Negative); Nitrite,Urine Positive (Negative); PH,Urine 6.5 pH Units (5.0-8.0); Protein,Urine Negative (Neg-Trace); Specific Gravity,Urine 1.016 (1.010-1.025); Urobilinogen,Urine Normal (Normal)
[2019-01-24 20:29] LABS: Clarity,Urine Hazy (Clear)
[2019-01-24 20:41] LABS: Squamous Epithelial Cell,Urine Moderate per lpf (None-Few); WBC,Urine 30-50 per hpf (0-3)
[2019-01-24 20:41] LABS: Alanine Aminotransferase 56 Units/L (7-52); Albumin 4.4 g/dL (3.5-5.7); Albumin/Globulin Ratio 1.4 (1.1-2.2); Alkaline Phosphatase 204 Units/L (34-104); Amylase 124 Units/L (29-103); Aspartate Amino Transferase 40 Units/L (13-39); BUN/Creatinine Ratio 29 (6-26); Bilirubin,Direct 0.1 mg/dL (0.0-0.2); Bilirubin,Indirect 0.6 mg/dL (0.0-1.2); Bilirubin,Total 0.7 mg/dL (0.3-1.0); Blood Urea Nitrogen 17 mg/dL (8-23); Calcium 9.9 mg/dL (8.6-10.3); Carbon Dioxide 22 mEq/L (23-29); Chloride 107 mEq/L (98-107); Globulin 3.1 g/dL (2.4-3.5); Glucose 114 mg/dL (70-105); Lipase 19 Units/L (11-82); Osmolality,Calculated 286 (280-300); Potassium 3.5 mEq/L (3.5-5.1); Sodium 137 mEq/L (136-145); Total Protein 7.5 g/dL (6.4-8.9); eGFR For African Americans > 60 (> 60); eGFR For Non-African Americans > 60 (> 60)
[2019-01-24 20:42] LABS: Bacteria,Urine Many per hpf (None-Few); Hyaline Casts,Urine None Seen per lpf (None-Few); Mucus,Urine Moderate (Few)
[2019-01-24] MEDS ORDERED: cefTRIAXone 1,000 MG in Water for inj. (sterile) 10 ML IVP ONE (20:58)
[2019-01-24 22:09] LABS: Troponin I < 0.03 ng/mL (< 0.04)
[2019-01-24] MEDS ORDERED: Nitroglycerin 0.4 MG TAB.SUBL SL PRN (23:11)
[2019-01-24] MEDS ORDERED: Aspirin 325 MG TABLET PO ONE (23:11)
[2019-01-25] MEDS: rOPINIRole 1 MG TABLET PO SCH ×2 (01:54→20:12)
[2019-01-25] MEDS: Ringers Solution, Lactated 1,000 ML IVC SCH ×2 (01:59→10:08)
[2019-01-25] MEDS: Ketorolac 30 MG/ML VIAL IVP PRN ×3 (03:47→17:06)
[2019-01-25] MEDS: Acetaminophen 325 MG TABLET PO PRN (05:04)
[2019-01-25 05:22] LABS: Basophils % 0.3 %; Eosinophils # 0.1 K/mcL (0.0-0.6); Eosinophils % 0.9 %; Hematocrit 37.2 % (35.3-44.9); Immature Granulocytes % 0.6 % (0-4); Lymphocytes # 1.7 K/mcL (0.6-4.6); Lymphocytes % 13.5 %; Mean Corpuscular HGB Conc 31.7 g/dL (31.6-35.5); Mean Corpuscular Hemoglobin 29.9 pg (28.0-33.3); Mean Corpuscular Volume 94.4 fL (83.0-100.0); Mean Platelet Volume 10.2 fL (9.4-12.4); Monocytes # 0.7 K/mcL (0.0-1.3); Neutrophils # 10.3 K/mcL (1.6-8.9); Platelet Count 239 K/mcL (140-400); Red Blood Count 3.94 M/mcL (3.82-4.97); Red Cell Distribution Width 13.9 % (11.5-14.5); Segmented Neutrophils % 79.7 %; White Blood Count 12.9 K/mcL (4.3-11.1)
[2019-01-25 05:35] LABS: Hemoglobin 11.8 g/dL (11.5-15.4)
[2019-01-25 05:36] LABS: BUN/Creatinine Ratio 29 (6-26); Blood Urea Nitrogen 16 mg/dL (8-23); Calcium 8.1 mg/dL (8.6-10.3); Carbon Dioxide 20 mEq/L (23-29); Chloride 114 mEq/L (98-107); Glucose 120 mg/dL (70-105); Osmolality,Calculated 290 (280-300); Potassium 4.2 mEq/L (3.5-5.1); Sodium 139 mEq/L (136-145); eGFR For African Americans > 60 (> 60); eGFR For Non-African Americans > 60 (> 60)
[2019-01-25] MEDS: cefTRIAXone 1,000 MG in Water for inj. (sterile) 10 ML IVPB SCH (08:29)
[2019-01-25] MEDS: Aspirin Enteric Coated 81 MG Tablet PO SCH (08:29)
[2019-01-25] MEDS: Ondansetron 4 MG/2 ML VIAL IVP PRN (17:01)
[2019-01-25] MEDS ORDERED: *HR* HYDROmorphone (PF) 1 MG/ML SYRINGE IVP ONE (20:27)
[2019-01-25] MEDS ORDERED: chlorproMAZINE 25 MG TABLET PO SCH (21:00)
[2019-01-26] MEDS: Ketorolac 30 MG/ML VIAL IVP PRN ×2 (04:05→09:23)
[2019-01-26 06:49] VITALS: BP 120/60
[2019-01-26] MEDS: Aspirin Enteric Coated 81 MG Tablet PO SCH (09:22)
[2019-01-26] MEDS: cefTRIAXone 1,000 MG in Water for inj. (sterile) 10 ML IVPB SCH (09:22)
[2019-01-26] MEDS: Acetaminophen 325 MG TABLET PO PRN (11:51)
[2019-01-26] MEDS: Ondansetron 4 MG/2 ML VIAL IVP PRN (13:06)
== END 2019-01-26 14:29 | disposition home or self-care (01) ==
LOC: EMEROOARM 19:32 → 3BNU 19:32 → SUATTDRO 23:49 → 3BNU 01-25 01:29
PROVIDERS: ADMIT Internal Medicine; ATTEND Family Medicine

== ENCOUNTER 2019-04-15 14:51 | Inpatient (IN) ==
[2019-04-15] MEDS ORDERED: 0.9 % Sodium Chloride 500 ML IV ONE (15:23)
[2019-04-15] MEDS ORDERED: Lidocaine -MPF 1% 5 ML AMPUL INFILT ONE (16:01)
[2019-04-15 16:45] LABS: Red Cell Distribution Width 14.7 % (11.5-14.5)
[2019-04-15 16:49] LABS: Hematocrit 34.7 % (35.3-44.9); Hemoglobin 11.6 g/dL (11.5-15.4); Mean Corpuscular HGB Conc 33.4 g/dL (31.6-35.5); Mean Corpuscular Hemoglobin 32.5 pg (28.0-33.3); Mean Corpuscular Volume 97.2 fL (83.0-100.0); Mean Platelet Volume 9.3 fL (9.4-12.4); Platelet Count 237 K/mcL (140-400); Red Blood Count 3.57 M/mcL (3.82-4.97); White Blood Count 26.8 K/mcL (4.3-11.1)
[2019-04-15 17:11] LABS: Alanine Aminotransferase 34 Units/L (7-52); Albumin 3.5 g/dL (3.5-5.7); Albumin/Globulin Ratio 1.3 (1.1-2.2); Alkaline Phosphatase 181 Units/L (34-104); Aspartate Amino Transferase 15 Units/L (13-39); BUN/Creatinine Ratio 24 (6-26); Bilirubin,Total 0.6 mg/dL (0.3-1.0); Blood Urea Nitrogen 20 mg/dL (8-23); Carbon Dioxide 19 mEq/L (23-29); Chloride 103 mEq/L (98-107); Globulin 2.8 g/dL (2.4-3.5); Glucose 130 mg/dL (70-105); Osmolality,Calculated 284 (280-300); Potassium 3.6 mEq/L (3.5-5.1); Sodium 135 mEq/L (136-145); Total Protein 6.3 g/dL (6.4-8.9); Troponin I < 0.03 ng/mL (< 0.04); eGFR For African Americans > 60 (> 60); eGFR For Non-African Americans > 60 (> 60)
[2019-04-15] MEDS ORDERED: Azithromycin desensitization 1 mg/mL IVP ONE (17:22)
[2019-04-15] MEDS ORDERED: cefTRIAXone 1,000 MG in Water for inj. (sterile) 10 ML IVP ONE (17:22)
[2019-04-15 17:34] LABS: Lymphocytes # 0.5 K/mcL (0.6-4.6); Monocytes # 2.1 K/mcL (0.0-1.3); Neutrophils # 24.1 K/mcL (1.6-8.9)
[2019-04-15 17:35] LABS: Platelet Estimate Normal (Normal); Toxic Vacuolation Present (Not Present)
[2019-04-15 18:08] LABS: Bilirubin,Urine Negative (Negative); Blood,Urine Negative (Negative); Clarity,Urine Cloudy (Clear); Color,Urine Yellow (Yellow); Glucose,Urine (UA) Normal (Normal); Ketones,Urine Negative (Negative); Leukocyte Esterase,Urine Moderate (Negative); Nitrite,Urine Negative (Negative); Protein,Urine 30 mg/dL (Neg-Trace); Specific Gravity,Urine 1.018 (1.010-1.025); Urobilinogen,Urine Normal (Normal)
[2019-04-15 18:16] LABS: Bacteria,Urine None Seen per hpf (None-Few); Hyaline Casts,Urine Few per lpf (None-Few); RBC,Urine 0-3 per hpf (0-3); Squamous Epithelial Cell,Urine Many per lpf (None-Few); WBC,Urine 30-50 per hpf (0-3)
[2019-04-15] MEDS ORDERED: Isovue-370 500 ML BOTTLE IVP ONE ×2 (18:38→18:41)
[2019-04-15] MEDS ORDERED: *HR* OxyCODONE/APAP 5/325 TABLET PO ONE (20:49)
[2019-04-15 21:11] LABS: Lipase < 3 Units/L (11-82)
[2019-04-15] MEDS ORDERED: 0.9 % Sodium Chloride 1,000 ML IV ONE (22:09)
[2019-04-15] MEDS ORDERED: Vancomycin Oral Soln 125 MG/2.5 ML UDC PO ONE (22:15)
[2019-04-15] MEDS ORDERED: Ringers Solution, Lactated 1,000 ML IVC SCH (23:45)
[2019-04-16] MEDS ORDERED: Isovue-370 500 ML BOTTLE IVP ONE (00:01)
[2019-04-16] MEDS ORDERED: Acetaminophen 325 MG TABLET PO PRN (00:04)
[2019-04-16 00:29] LABS: Creatine Kinase 41 Units/L (30-223)
[2019-04-16 00:52] LABS: Amphetamine Screen,Urine Negative ng/mL (Cutoff=1000); Barbiturate Screen,Urine Negative ng/mL (Cutoff=200); Benzodiazepines Screen,Urine Negative ng/mL (Cutoff=200); Cannabinoid Screen,Urine Negative ng/mL (Cutoff = 50); Cocaine Screen,Urine Negative ng/mL (Cutoff= 300); Opiate Screen,Urine Negative ng/mL (Cutoff=300); Phencyclidine Screen,Urine Negative ng/mL (Cutoff=25)
[2019-04-16] MEDS: rOPINIRole 1 MG TABLET PO SCH ×2 (02:11→22:03)
[2019-04-16] MEDS: Ketorolac 30 MG/ML VIAL IVP PRN ×4 (02:11→22:03)
[2019-04-16] MEDS ORDERED: *HR* HYDROcodone/Acet 5/325 mg TABLET PO ONE (04:34)
[2019-04-16 04:53] LABS: Basophils % 0.1 %; Eosinophils % 0.1 %; Immature Granulocytes % 0.7 % (0-4); Lymphocytes # 0.8 K/mcL (0.6-4.6); Lymphocytes % 4.8 %; Mean Corpuscular HGB Conc 32.7 g/dL (31.6-35.5); Mean Corpuscular Hemoglobin 32.5 pg (28.0-33.3); Mean Corpuscular Volume 99.3 fL (83.0-100.0); Mean Platelet Volume 9.3 fL (9.4-12.4); Monocytes # 0.8 K/mcL (0.0-1.3); Monocytes % 4.4 %; Neutrophils # 15.3 K/mcL (1.6-8.9); Platelet Count 194 K/mcL (140-400); Red Blood Count 3.02 M/mcL (3.82-4.97); Red Cell Distribution Width 14.8 % (11.5-14.5); Segmented Neutrophils % 89.9 %; White Blood Count 17.1 K/mcL (4.3-11.1)
[2019-04-16] MEDS: *HR* Heparin 5,000 UNIT/ML VIAL SQ SCH ×2 (05:02→18:47)
[2019-04-16 05:10] LABS: BUN/Creatinine Ratio 16 (6-26); Blood Urea Nitrogen 13 mg/dL (8-23); Calcium 8.5 mg/dL (8.6-10.3); Carbon Dioxide 22 mEq/L (23-29); Chloride 107 mEq/L (98-107); Glucose 108 mg/dL (70-105); Osmolality,Calculated 289 (280-300); Potassium 3.6 mEq/L (3.5-5.1); Sodium 139 mEq/L (136-145); eGFR For African Americans > 60 (> 60); eGFR For Non-African Americans > 60 (> 60)
[2019-04-16 05:17] LABS: Hemoglobin 9.8 g/dL (11.5-15.4)
[2019-04-16] MEDS: Aspirin Enteric Coated 81 MG Tablet PO SCH (08:44)
[2019-04-16] MEDS: Cefepime HCl 2,000 MG in 0.9 % Sodium Chloride Mini Bag 100 ML IVPB SCH ×3 (08:44→23:59)
[2019-04-16] MEDS: Ringers Solution, Lactated 1,000 ML IVC SCH ×2 (08:53→18:53)
[2019-04-16] MEDS: *HR* HYDROcodone/Acet 10/325 mg TABLET PO PRN ×3 (10:45→23:13)
[2019-04-17 01:47] LABS: Basophils % 0.1 %; Eosinophils # 0.2 K/mcL (0.0-0.6); Eosinophils % 1.1 %; Hematocrit 27.6 % (35.3-44.9); Hemoglobin 8.9 g/dL (11.5-15.4); Immature Granulocytes % 0.9 % (0-4); Lymphocytes # 0.8 K/mcL (0.6-4.6); Mean Corpuscular HGB Conc 32.2 g/dL (31.6-35.5); Mean Corpuscular Hemoglobin 32.6 pg (28.0-33.3); Mean Corpuscular Volume 101.1 fL (83.0-100.0); Mean Platelet Volume 9.6 fL (9.4-12.4); Monocytes # 0.5 K/mcL (0.0-1.3); Monocytes % 3.3 %; Neutrophils # 12.4 K/mcL (1.6-8.9); Platelet Count 193 K/mcL (140-400); Red Blood Count 2.73 M/mcL (3.82-4.97); Red Cell Distribution Width 14.9 % (11.5-14.5); Segmented Neutrophils % 88.6 %
[2019-04-17 01:49] LABS: BUN/Creatinine Ratio 26 (6-26); Blood Urea Nitrogen 18 mg/dL (8-23); Calcium 8.1 mg/dL (8.6-10.3); Carbon Dioxide 21 mEq/L (23-29); Chloride 115 mEq/L (98-107); Glucose 105 mg/dL (70-105); Osmolality,Calculated 294 (280-300); Potassium 3.7 mEq/L (3.5-5.1); Sodium 141 mEq/L (136-145); eGFR For African Americans > 60 (> 60); eGFR For Non-African Americans > 60 (> 60)
[2019-04-17] MEDS: *HR* Heparin 5,000 UNIT/ML VIAL SQ SCH (06:12)
[2019-04-17] MEDS: Ketorolac 30 MG/ML VIAL IVP PRN (06:21)
[2019-04-17 08:25] LABS: Iron < 10 mcg/dL (50-170); Transferrin 119 mg/dL (203-362)
[2019-04-17] MEDS: *HR* HYDROcodone/Acet 10/325 mg TABLET PO PRN ×2 (09:37→18:46)
[2019-04-17] MEDS: Aspirin Enteric Coated 81 MG Tablet PO SCH (09:37)
[2019-04-17] MEDS: Cefepime HCl 2,000 MG in 0.9 % Sodium Chloride Mini Bag 100 ML IVPB SCH ×3 (09:38→23:26)
[2019-04-17] MEDS: Sodium Ferric Gluconat/Sucrose 125 MG in 0.9 % Sodium Chloride 100 ML IVPB SCH (15:11)
[2019-04-17] MEDS: Sucralfate 1 GM TABLET PO SCH (16:29)
[2019-04-17] MEDS: Pantoprazole 40 MG VIAL IVP SCH (16:30)
[2019-04-17 18:24] LABS: Hematocrit 30.7 % (35.3-44.9); Hemoglobin 9.8 g/dL (11.5-15.4)
[2019-04-17] MEDS: rOPINIRole 1 MG TABLET PO SCH (20:54)
[2019-04-18 01:54] LABS: Basophils # 0.2 K/mcL (0.0-0.2); Eosinophils # 0.5 K/mcL (0.0-0.6); Eosinophils % 3.2 %; Hematocrit 29.8 % (35.3-44.9); Hemoglobin 9.9 g/dL (11.5-15.4); Immature Granulocytes % 2.8 % (0-4); Lymphocytes # 0.6 K/mcL (0.6-4.6); Lymphocytes % 3.9 %; Mean Corpuscular HGB Conc 33.2 g/dL (31.6-35.5); Mean Corpuscular Hemoglobin 33.2 pg (28.0-33.3); Mean Platelet Volume 9.9 fL (9.4-12.4); Monocytes # 0.6 K/mcL (0.0-1.3); Monocytes % 4.3 %; Neutrophils # 12.3 K/mcL (1.6-8.9); Nucleated Red Blood Cells 3.4 /100 WBC (0); Platelet Count 204 K/mcL (140-400); Red Blood Count 2.98 M/mcL (3.82-4.97); Red Cell Distribution Width 14.6 % (11.5-14.5); Segmented Neutrophils % 84.8 %; White Blood Count 14.5 K/mcL (4.3-11.1)
[2019-04-18 02:00] LABS: BUN/Creatinine Ratio 19 (6-26); Blood Urea Nitrogen 12 mg/dL (8-23); Calcium 8.2 mg/dL (8.6-10.3); Carbon Dioxide 18 mEq/L (23-29); Chloride 111 mEq/L (98-107); Glucose 70 mg/dL (70-105); Osmolality,Calculated 284 (280-300); Potassium 3.9 mEq/L (3.5-5.1); Sodium 138 mEq/L (136-145); eGFR For African Americans > 60 (> 60); eGFR For Non-African Americans > 60 (> 60)
[2019-04-18 02:20] LABS: Platelet Estimate Normal (Normal)
[2019-04-18] MEDS: Pantoprazole 40 MG VIAL IVP SCH ×3 (05:02→16:38)
[2019-04-18] MEDS: *HR* HYDROcodone/Acet 10/325 mg TABLET PO PRN ×2 (05:02→16:36)
[2019-04-18] MEDS: Sucralfate 1 GM TABLET PO SCH ×2 (07:41→16:37)
[2019-04-18] MEDS: Cefepime HCl 2,000 MG in 0.9 % Sodium Chloride Mini Bag 100 ML IVPB SCH ×2 (07:41→16:38)
[2019-04-18] MEDS ORDERED: Isovue-370 500 ML BOTTLE IVP ONE (10:02)
[2019-04-18] MEDS: rOPINIRole 1 MG TABLET PO SCH (21:37)
[2019-04-19] MEDS: Cefepime HCl 2,000 MG in 0.9 % Sodium Chloride Mini Bag 100 ML IVPB SCH ×3 (00:40→16:43)
[2019-04-19 04:51] LABS: Basophils # 0.1 K/mcL (0.0-0.2); Basophils % 0.5 %; Eosinophils # 0.3 K/mcL (0.0-0.6); Eosinophils % 3.1 %; Hemoglobin 9.9 g/dL (11.5-15.4); Immature Granulocytes % 1.2 % (0-4); Lymphocytes # 1.1 K/mcL (0.6-4.6); Lymphocytes % 10.1 %; Mean Corpuscular HGB Conc 31.9 g/dL (31.6-35.5); Mean Corpuscular Volume 100.3 fL (83.0-100.0); Mean Platelet Volume 9.5 fL (9.4-12.4); Monocytes # 0.5 K/mcL (0.0-1.3); Monocytes % 4.3 %; Neutrophils # 8.8 K/mcL (1.6-8.9); Platelet Count 271 K/mcL (140-400); Red Blood Count 3.09 M/mcL (3.82-4.97); Red Cell Distribution Width 13.9 % (11.5-14.5); Segmented Neutrophils % 80.8 %; White Blood Count 10.8 K/mcL (4.3-11.1)
[2019-04-19 04:55] LABS: INR 1.2; Prothrombin Time 13.4 Seconds (9.4-12.1)
[2019-04-19 05:13] LABS: BUN/Creatinine Ratio 10 (6-26); Blood Urea Nitrogen 7 mg/dL (8-23); Calcium 8.8 mg/dL (8.6-10.3); Carbon Dioxide 24 mEq/L (23-29); Chloride 105 mEq/L (98-107); Glucose 82 mg/dL (70-105); Osmolality,Calculated 285 (280-300); Potassium 3.4 mEq/L (3.5-5.1); Sodium 139 mEq/L (136-145); eGFR For African Americans > 60 (> 60); eGFR For Non-African Americans > 60 (> 60)
[2019-04-19] MEDS ORDERED: Pantoprazole 40 MG VIAL IVP SCH (06:00)
[2019-04-19] MEDS: Sucralfate 1 GM TABLET PO SCH ×2 (08:57→16:42)
[2019-04-19] MEDS: Sodium Ferric Gluconat/Sucrose 125 MG in 0.9 % Sodium Chloride 100 ML IVPB SCH (08:59)
[2019-04-19] MEDS: *HR* HYDROcodone/Acet 10/325 mg TABLET PO PRN ×2 (10:24→16:43)
[2019-04-19] MEDS: Vancomycin 500 MG in 0.9 % Sodium Chloride Mini Bag 100 ML IVPB SCH (18:15)
[2019-04-19] MEDS: rOPINIRole 1 MG TABLET PO SCH (21:57)
[2019-04-20] MEDS: Cefepime HCl 2,000 MG in 0.9 % Sodium Chloride Mini Bag 100 ML IVPB SCH ×2 (00:51→09:30)
[2019-04-20] MEDS: *HR* HYDROcodone/Acet 10/325 mg TABLET PO PRN ×2 (00:51→09:29)
[2019-04-20] MEDS: Nystatin Cream 15 GM TUBE TP SCH ×2 (00:51→09:32)
[2019-04-20 04:52] LABS: Basophils % 0.3 %; Eosinophils # 0.3 K/mcL (0.0-0.6); Eosinophils % 3.1 %; Hematocrit 33.9 % (35.3-44.9); Hemoglobin 10.4 g/dL (11.5-15.4); Immature Granulocytes % 3.6 % (0-4); Lymphocytes # 1.3 K/mcL (0.6-4.6); Lymphocytes % 11.6 %; Mean Corpuscular HGB Conc 30.7 g/dL (31.6-35.5); Mean Corpuscular Hemoglobin 32.1 pg (28.0-33.3); Mean Corpuscular Volume 104.6 fL (83.0-100.0); Mean Platelet Volume 9.4 fL (9.4-12.4); Monocytes # 0.7 K/mcL (0.0-1.3); Neutrophils # 8.3 K/mcL (1.6-8.9); Platelet Count 222 K/mcL (140-400); Red Blood Count 3.24 M/mcL (3.82-4.97); Red Cell Distribution Width 13.7 % (11.5-14.5); Segmented Neutrophils % 75.4 %
[2019-04-20 05:07] LABS: BUN/Creatinine Ratio 14 (6-26); Blood Urea Nitrogen 9 mg/dL (8-23); Calcium 8.4 mg/dL (8.6-10.3); Carbon Dioxide 23 mEq/L (23-29); Chloride 105 mEq/L (98-107); Glucose 90 mg/dL (70-105); Magnesium 1.8 mg/dL (1.6-2.6); Osmolality,Calculated 282 (280-300); Potassium 3.7 mEq/L (3.5-5.1); Sodium 137 mEq/L (136-145); eGFR For African Americans > 60 (> 60); eGFR For Non-African Americans > 60 (> 60)
[2019-04-20] MEDS: Vancomycin 500 MG in 0.9 % Sodium Chloride Mini Bag 100 ML IVPB SCH (05:28)
[2019-04-20 05:52] LABS: Platelet Estimate Normal (Normal)
[2019-04-20 06:41] VITALS: BP 136/78
[2019-04-20] MEDS: Sucralfate 1 GM TABLET PO SCH (09:32)
[2019-04-20] MEDS ORDERED: Aminoglycoside Consult 1 EACH MC ONE (11:37)
== END 2019-04-20 11:38 | disposition home or self-care (01) | DRG 872 ==
LOC: 3NENU 14:51 → EMEROOARM 14:51 → SUATTDRO 22:36 → 3NENU 22:49 → CDU 04-17 10:16 → 3ANU 04-17 17:10
PROVIDERS: ADMIT Internal Medicine; ATTEND Internal Medicine

== ENCOUNTER 2019-04-25 14:56 | Observation (INO) ==
[2019-04-25] MEDS ORDERED: Fluorescein Sodium STRIP OP ONE (15:40)
[2019-04-25] MEDS ORDERED: 0.9 % Sodium Chloride 1,000 ML IV ONE (16:33)
[2019-04-25 17:18] LABS: Basophils # 0.1 K/mcL (0.0-0.2); Basophils % 0.6 %; Eosinophils # 0.2 K/mcL (0.0-0.6); Eosinophils % 1.4 %; Hematocrit 41.1 % (35.3-44.9); Immature Granulocytes % 1.6 % (0-4); Lymphocytes # 2.3 K/mcL (0.6-4.6); Lymphocytes % 16.3 %; Mean Corpuscular HGB Conc 31.6 g/dL (31.6-35.5); Mean Corpuscular Volume 101.2 fL (83.0-100.0); Mean Platelet Volume 9.3 fL (9.4-12.4); Monocytes # 0.6 K/mcL (0.0-1.3); Monocytes % 4.2 %; Neutrophils # 10.6 K/mcL (1.6-8.9); Platelet Count 416 K/mcL (140-400); Red Blood Count 4.06 M/mcL (3.82-4.97); Red Cell Distribution Width 13.8 % (11.5-14.5); Segmented Neutrophils % 75.9 %
[2019-04-25 17:26] LABS: Bilirubin,Urine Small (Negative); Blood,Urine Negative (Negative); Clarity,Urine Cloudy (Clear); Color,Urine Dark Yellow (Yellow); Glucose,Urine (UA) Normal (Normal); Ketones,Urine Negative (Negative); Leukocyte Esterase,Urine Negative (Negative); Nitrite,Urine Negative (Negative); Protein,Urine 30 mg/dL (Neg-Trace); Specific Gravity,Urine > 1.030 (1.010-1.025); Urobilinogen,Urine Normal (Normal)
[2019-04-25 17:28] LABS: Squamous Epithelial Cell,Urine Many per lpf (None-Few)
[2019-04-25 17:38] LABS: Alanine Aminotransferase 16 Units/L (7-52); Albumin 3.9 g/dL (3.5-5.7); Alkaline Phosphatase 182 Units/L (34-104); Aspartate Amino Transferase 20 Units/L (13-39); BUN/Creatinine Ratio 12 (6-26); Bilirubin,Direct 0.1 mg/dL (0.0-0.2); Bilirubin,Indirect 0.2 mg/dL (0.0-1.0); Bilirubin,Total 0.3 mg/dL (0.3-1.0); Blood Urea Nitrogen 10 mg/dL (8-23); Calcium 9.5 mg/dL (8.6-10.3); Carbon Dioxide 19 mEq/L (23-29); Chloride 105 mEq/L (98-107); Globulin 4.1 g/dL (2.4-3.5); Glucose 137 mg/dL (70-105); Osmolality,Calculated 287 (280-300); Potassium 3.2 mEq/L (3.5-5.1); Sodium 138 mEq/L (136-145); eGFR For African Americans > 60 (> 60); eGFR For Non-African Americans > 60 (> 60)
[2019-04-25 17:43] LABS: Bacteria,Urine Few per hpf (None-Few); Hyaline Casts,Urine Few per lpf (None-Few); Mucus,Urine Few per lpf (Few)
[2019-04-25] MEDS ORDERED: Naloxone 0.4 MG/ML INJ IVP PRN (21:39)
[2019-04-25] MEDS ORDERED: Acetaminophen IV 500 MG/50 ML INFUS..BTL IVPB ONE (21:44)
[2019-04-25] MEDS ORDERED: 0.9 % Sodium Chloride 1,000 ML IVC SCH (21:45)
[2019-04-25] MEDS ORDERED: Potassium Chloride 40 MEQ, Lidocaine 1% 2 ML in 0.9 % Sodium Chloride 500 ML IVPB ONE (21:54)
[2019-04-25] MEDS: Magic Mouthwash 10 ML UD Cup PO SCH (22:24)
[2019-04-25] MEDS: Nystatin POWDER 30 GM BOTTLE TP SCH (22:26)
[2019-04-25] MEDS: Pantoprazole 40 MG VIAL IVP SCH (22:52)
[2019-04-25] MEDS: Cefepime HCl 2,000 MG in Water for inj. (sterile) 20 ML IVP SCH (23:07)
[2019-04-26] MEDS: Melatonin 3 MG TABLET PO PRN ×2 (01:42→21:56)
[2019-04-26 05:00] LABS: Hematocrit 33.6 % (35.3-44.9); Mean Corpuscular Hemoglobin 31.5 pg (28.0-33.3); Mean Corpuscular Volume 95.5 fL (83.0-100.0); Mean Platelet Volume 8.9 fL (9.4-12.4); Platelet Count 371 K/mcL (140-400); Red Blood Count 3.52 M/mcL (3.82-4.97); Red Cell Distribution Width 14.2 % (11.5-14.5); White Blood Count 7.4 K/mcL (4.3-11.1)
[2019-04-26 05:04] LABS: Hemoglobin 11.1 g/dL (11.5-15.4)
[2019-04-26 05:10] LABS: BUN/Creatinine Ratio 13 (6-26); Blood Urea Nitrogen 9 mg/dL (8-23); Calcium 8.4 mg/dL (8.6-10.3); Carbon Dioxide 19 mEq/L (23-29); Chloride 115 mEq/L (98-107); Glucose 90 mg/dL (70-105); Magnesium 1.9 mg/dL (1.6-2.6); Osmolality,Calculated 290 (280-300); Phosphorous 3.7 mg/dL (2.7-4.5); Potassium 4.3 mEq/L (3.5-5.1); Sodium 141 mEq/L (136-145); eGFR For African Americans > 60 (> 60); eGFR For Non-African Americans > 60 (> 60)
[2019-04-26] MEDS: Pantoprazole 40 MG VIAL IVP SCH ×2 (05:37→16:24)
[2019-04-26] MEDS: Magic Mouthwash 10 ML UD Cup PO SCH ×3 (08:05→16:21)
[2019-04-26] MEDS: Sucralfate 1 GM TABLET PO SCH ×4 (08:05→16:28)
[2019-04-26] MEDS: Cefepime HCl 2,000 MG in Water for inj. (sterile) 20 ML IVP SCH ×3 (08:06→23:35)
[2019-04-26] MEDS: Nystatin POWDER 30 GM BOTTLE TP SCH ×3 (08:07→21:57)
[2019-04-26] MEDS ORDERED: Isovue-370 500 ML BOTTLE IVP ONE (14:20)
[2019-04-26] MEDS ORDERED: Aminoglycoside Consult 1 EACH MC ONE (16:24)
[2019-04-26] MEDS: rOPINIRole 0.25 MG TABLET PO PRN (21:56)
[2019-04-27 01:32] LABS: C-Reactive Protein 7 mg/L (Less than 10)
[2019-04-27] MEDS: Pantoprazole 40 MG VIAL IVP SCH ×2 (05:45→17:34)
[2019-04-27 07:26] LABS: BUN/Creatinine Ratio 13 (6-26); Blood Urea Nitrogen 9 mg/dL (8-23); Calcium 9.5 mg/dL (8.6-10.3); Carbon Dioxide 18 mEq/L (23-29); Chloride 105 mEq/L (98-107); Glucose 80 mg/dL (70-105); Osmolality,Calculated 280 (280-300); Potassium 4.5 mEq/L (3.5-5.1); Sodium 136 mEq/L (136-145); eGFR For African Americans > 60 (> 60); eGFR For Non-African Americans > 60 (> 60)
[2019-04-27] MEDS: Cefepime HCl 2,000 MG in Water for inj. (sterile) 20 ML IVP SCH (09:39)
[2019-04-27] MEDS: Magic Mouthwash 10 ML UD Cup PO SCH ×3 (09:40→17:34)
[2019-04-27] MEDS: Sucralfate 1 GM TABLET PO SCH ×2 (09:40→17:34)
[2019-04-27] MEDS: Nystatin POWDER 30 GM BOTTLE TP SCH ×3 (09:40→20:49)
[2019-04-27 10:12] LABS: Basophils # 0.1 K/mcL (0.0-0.2); Basophils % 0.9 %; Eosinophils # 0.4 K/mcL (0.0-0.6); Eosinophils % 3.9 %; Hematocrit 39.8 % (35.3-44.9); Hemoglobin 13.2 g/dL (11.5-15.4); Immature Granulocytes % 1.2 % (0-4); Lymphocytes # 1.2 K/mcL (0.6-4.6); Lymphocytes % 11.6 %; Mean Corpuscular HGB Conc 33.2 g/dL (31.6-35.5); Mean Corpuscular Hemoglobin 31.4 pg (28.0-33.3); Mean Corpuscular Volume 94.5 fL (83.0-100.0); Mean Platelet Volume 9.1 fL (9.4-12.4); Monocytes # 0.4 K/mcL (0.0-1.3); Neutrophils # 8.3 K/mcL (1.6-8.9); Platelet Count 364 K/mcL (140-400); Red Blood Count 4.21 M/mcL (3.82-4.97); Red Cell Distribution Width 13.6 % (11.5-14.5); Segmented Neutrophils % 78.4 %; White Blood Count 10.5 K/mcL (4.3-11.1)
[2019-04-27] MEDS ORDERED: Fosfomycin Tromethamine 3 GM Packet PO ONE (12:00)
[2019-04-28 06:13] LABS: Basophils # 0.1 K/mcL (0.0-0.2); Basophils % 0.7 %; Eosinophils # 0.2 K/mcL (0.0-0.6); Eosinophils % 1.5 %; Hematocrit 44.9 % (35.3-44.9); Hemoglobin 14.7 g/dL (11.5-15.4); Immature Granulocytes % 1.2 % (0-4); Lymphocytes # 1.2 K/mcL (0.6-4.6); Lymphocytes % 9.1 %; Mean Corpuscular HGB Conc 32.7 g/dL (31.6-35.5); Mean Corpuscular Hemoglobin 31.6 pg (28.0-33.3); Mean Corpuscular Volume 96.6 fL (83.0-100.0); Mean Platelet Volume 9.2 fL (9.4-12.4); Monocytes # 0.4 K/mcL (0.0-1.3); Monocytes % 3.1 %; Neutrophils # 11.5 K/mcL (1.6-8.9); Platelet Count 385 K/mcL (140-400); Red Blood Count 4.65 M/mcL (3.82-4.97); Red Cell Distribution Width 13.8 % (11.5-14.5); Segmented Neutrophils % 84.4 %; White Blood Count 13.6 K/mcL (4.3-11.1)
[2019-04-28 06:43] LABS: BUN/Creatinine Ratio 24 (6-26); Blood Urea Nitrogen 19 mg/dL (8-23); Calcium 9.7 mg/dL (8.6-10.3); Carbon Dioxide 17 mEq/L (23-29); Chloride 100 mEq/L (98-107); Glucose 75 mg/dL (70-105); Osmolality,Calculated 287 (280-300); Potassium 3.9 mEq/L (3.5-5.1); Sodium 138 mEq/L (136-145); eGFR For African Americans > 60 (> 60); eGFR For Non-African Americans > 60 (> 60)
[2019-04-28 06:50] LABS: Thyroid Stimulating Hormone 0.571 mcIU/mL (0.340-5.600)
[2019-04-28] MEDS: Pantoprazole 40 MG VIAL IVP SCH ×2 (06:53→16:10)
[2019-04-28 06:58] LABS: Folate 11.6 ng/mL (3.0-16.0)
[2019-04-28] MEDS: Nystatin POWDER 30 GM BOTTLE TP SCH ×3 (09:02→21:45)
[2019-04-28] MEDS: Sucralfate 1 GM TABLET PO SCH ×2 (09:02→16:20)
[2019-04-28] MEDS: Magic Mouthwash 10 ML UD Cup PO SCH ×3 (09:02→16:10)
[2019-04-28] MEDS: Zinc Sulfate 220 MG CAPSULE PO SCH (16:10)
[2019-04-28] MEDS: Vitamin B Complex/Vit C/Vit E 1 EACH TABLET PO SCH (16:10)
[2019-04-28] MEDS: Lidocaine Viscous Oral Soln 15 ML SOLUTION MM PRN ×2 (16:32→21:49)
[2019-04-29] MEDS: Melatonin 3 MG TABLET PO PRN (03:19)
[2019-04-29 04:59] LABS: Basophils # 0.1 K/mcL (0.0-0.2); Basophils % 0.6 %; Eosinophils # 0.2 K/mcL (0.0-0.6); Eosinophils % 2.1 %; Hemoglobin 13.2 g/dL (11.5-15.4); Immature Granulocytes % 0.7 % (0-4); Lymphocytes # 2.3 K/mcL (0.6-4.6); Lymphocytes % 23.1 %; Mean Corpuscular HGB Conc 33.8 g/dL (31.6-35.5); Mean Corpuscular Hemoglobin 31.9 pg (28.0-33.3); Mean Corpuscular Volume 94.2 fL (83.0-100.0); Mean Platelet Volume 9.4 fL (9.4-12.4); Monocytes # 0.6 K/mcL (0.0-1.3); Monocytes % 5.6 %; Neutrophils # 6.6 K/mcL (1.6-8.9); Platelet Count 392 K/mcL (140-400); Red Blood Count 4.14 M/mcL (3.82-4.97); Red Cell Distribution Width 13.8 % (11.5-14.5); Segmented Neutrophils % 67.9 %; White Blood Count 9.8 K/mcL (4.3-11.1)
[2019-04-29] MEDS: Pantoprazole 40 MG VIAL IVP SCH (05:17)
[2019-04-29] MEDS: Sucralfate 1 GM TABLET PO SCH ×2 (08:55→16:50)
[2019-04-29] MEDS: Vitamin B Complex/Vit C/Vit E 1 EACH TABLET PO SCH (08:55)
[2019-04-29] MEDS: Zinc Sulfate 220 MG CAPSULE PO SCH (08:55)
[2019-04-29] MEDS: Magic Mouthwash 10 ML UD Cup PO SCH ×3 (08:56→16:51)
[2019-04-29] MEDS: Lactobacillus 1 EACH CAP.SPRINK PO SCH (08:56)
[2019-04-29] MEDS: Nystatin POWDER 30 GM BOTTLE TP SCH ×3 (09:00→22:15)
[2019-04-29] MEDS: Ibuprofen 400 MG TABLET PO PRN ×2 (10:50→18:54)
[2019-04-29] MEDS: Acetaminophen 325 MG TABLET PO PRN (14:36)
[2019-04-29] MEDS: rOPINIRole 0.25 MG TABLET PO PRN (18:50)
[2019-04-30 01:37] LABS: Basophils # 0.1 K/mcL (0.0-0.2); Eosinophils # 0.2 K/mcL (0.0-0.6); Hematocrit 39.5 % (35.3-44.9); Hemoglobin 13.5 g/dL (11.5-15.4); Immature Granulocytes % 0.6 % (0-4); Lymphocytes # 2.3 K/mcL (0.6-4.6); Lymphocytes % 22.6 %; Mean Corpuscular HGB Conc 34.2 g/dL (31.6-35.5); Mean Corpuscular Hemoglobin 32.7 pg (28.0-33.3); Mean Corpuscular Volume 95.6 fL (83.0-100.0); Mean Platelet Volume 9.8 fL (9.4-12.4); Monocytes # 0.7 K/mcL (0.0-1.3); Monocytes % 6.3 %; Neutrophils # 6.9 K/mcL (1.6-8.9); Platelet Count 412 K/mcL (140-400); Red Blood Count 4.13 M/mcL (3.82-4.97); Red Cell Distribution Width 13.6 % (11.5-14.5); Segmented Neutrophils % 67.5 %; White Blood Count 10.3 K/mcL (4.3-11.1)
[2019-04-30] MEDS: Acetaminophen 325 MG TABLET PO PRN (08:23)
[2019-04-30] MEDS: Magic Mouthwash 10 ML UD Cup PO SCH (08:23)
[2019-04-30] MEDS: Sucralfate 1 GM TABLET PO SCH (08:23)
[2019-04-30] MEDS: Lactobacillus 1 EACH CAP.SPRINK PO SCH (08:24)
[2019-04-30] MEDS: Zinc Sulfate 220 MG CAPSULE PO SCH (08:24)
[2019-04-30] MEDS: Vitamin B Complex/Vit C/Vit E 1 EACH TABLET PO SCH (08:24)
[2019-04-30 12:16] VITALS: BP 138/73
== END 2019-04-30 16:25 | disposition home or self-care (01) ==
LOC: EMEROOARM 14:56 → 3NENU 14:56 → SUATTDRO 18:52 → 3NENU 20:09 → CDU 04-26 09:54 → 3NENU 04-28 12:34
PROVIDERS: ADMIT Internal Medicine; ATTEND Internal Medicine

== ENCOUNTER 2019-05-07 20:11 | Inpatient (IN) ==
[2019-05-07] MEDS ORDERED: 0.9 % Sodium Chloride 500 ML IVC ONE (21:13)
[2019-05-07] MEDS ORDERED: *HR* HYDROcodone/Acet 5/325 mg TABLET PO ONE (21:27)
[2019-05-07 21:49] LABS: Basophils # 0.1 K/mcL (0.0-0.2); Basophils % 0.8 %; Eosinophils # 0.2 K/mcL (0.0-0.6); Hematocrit 43.2 % (35.3-44.9); Hemoglobin 14.8 g/dL (11.5-15.4); Immature Granulocytes % 0.5 % (0-4); Lymphocytes # 2.6 K/mcL (0.6-4.6); Lymphocytes % 22.8 %; Mean Corpuscular HGB Conc 34.3 g/dL (31.6-35.5); Mean Corpuscular Hemoglobin 32.3 pg (28.0-33.3); Mean Corpuscular Volume 94.3 fL (83.0-100.0); Mean Platelet Volume 9.9 fL (9.4-12.4); Monocytes # 0.6 K/mcL (0.0-1.3); Monocytes % 5.3 %; Neutrophils # 7.8 K/mcL (1.6-8.9); Platelet Count 326 K/mcL (140-400); Red Blood Count 4.58 M/mcL (3.82-4.97); Segmented Neutrophils % 68.6 %; White Blood Count 11.4 K/mcL (4.3-11.1)
[2019-05-07 23:15] LABS: Bilirubin,Urine Small (Negative); Blood,Urine Negative (Negative); Clarity,Urine Clear (Clear); Color,Urine Yellow (Yellow); Glucose,Urine (UA) Normal (Normal); Ketones,Urine Trace mg/dL (Negative); Leukocyte Esterase,Urine Negative (Negative); Nitrite,Urine Negative (Negative); Protein,Urine Negative (Neg-Trace); Specific Gravity,Urine 1.025 (1.010-1.025); Urobilinogen,Urine Normal (Normal)
[2019-05-07 23:25] LABS: Amphetamine Screen,Urine Negative ng/mL (Cutoff=1000); Barbiturate Screen,Urine Negative ng/mL (Cutoff=200); Benzodiazepines Screen,Urine Negative ng/mL (Cutoff=200); Cannabinoid Screen,Urine Negative ng/mL (Cutoff = 50); Cocaine Screen,Urine Negative ng/mL (Cutoff= 300); Opiate Screen,Urine Negative ng/mL (Cutoff=300); Phencyclidine Screen,Urine Negative ng/mL (Cutoff=25)
[2019-05-07] MEDS ORDERED: Acetaminophen 325 MG TABLET PO ONE (23:37)
[2019-05-08 01:05] LABS: Alanine Aminotransferase 50 Units/L (7-52); Albumin 4.1 g/dL (3.5-5.7); Albumin/Globulin Ratio 1.4 (1.1-2.2); Alkaline Phosphatase 162 Units/L (34-104); Aspartate Amino Transferase 38 Units/L (13-39); BUN/Creatinine Ratio 31 (6-26); Bilirubin,Indirect 0.4 mg/dL (0.0-1.0); Bilirubin,Total 0.4 mg/dL (0.3-1.0); Blood Urea Nitrogen 20 mg/dL (8-23); Calcium 9.5 mg/dL (8.6-10.3); Carbon Dioxide 20 mEq/L (23-29); Chloride 109 mEq/L (98-107); Ethanol < 10 mg/dL (Less than 10); Glucose 91 mg/dL (70-105); Magnesium 1.9 mg/dL (1.6-2.6); Osmolality,Calculated 292 (280-300); Potassium 3.5 mEq/L (3.5-5.1); Sodium 140 mEq/L (136-145); Total Protein 7.1 g/dL (6.4-8.9); eGFR For African Americans > 60 (> 60); eGFR For Non-African Americans > 60 (> 60)
[2019-05-08 01:07] LABS: Troponin I < 0.03 ng/mL (< 0.04)
[2019-05-08 01:20] LABS: Thyroid Stimulating Hormone 1.939 mcIU/mL (0.340-5.600)
[2019-05-08 03:08] LABS: Lipase 14 Units/L (11-82)
[2019-05-08] MEDS ORDERED: *HR* FentaNYL (PF) 100 MCG/2 ML VIAL IVP ONE (03:20)
[2019-05-08] MEDS ORDERED: Naloxone 0.4 MG/ML INJ IVP PRN (07:18)
[2019-05-08] MEDS ORDERED: Magic Mouthwash 10 ML UD Cup PO PRN (07:21)
[2019-05-08] MEDS: Lidocaine Viscous Oral Soln 15 ML SOLUTION MM SCH ×6 (08:57→22:34)
[2019-05-08] MEDS: Acetaminophen 325 MG TABLET PO PRN ×2 (08:57→14:59)
[2019-05-08] MEDS: Lactobacillus 1 EACH CAP.SPRINK PO SCH (08:57)
[2019-05-08] MEDS ORDERED: *HR* HYDROcodone/Acet 5/325 mg TABLET PO ONE (20:41)
[2019-05-08] MEDS: traZODone 50 MG TABLET PO SCH (21:28)
[2019-05-08] MEDS: rOPINIRole 1 MG TABLET PO PRN (22:34)
[2019-05-09 03:35] LABS: Basophils # 0.1 K/mcL (0.0-0.2); Basophils % 0.8 %; Eosinophils # 0.2 K/mcL (0.0-0.6); Eosinophils % 2.6 %; Hematocrit 39.4 % (35.3-44.9); Hemoglobin 13.3 g/dL (11.5-15.4); Immature Granulocytes % 0.6 % (0-4); Lymphocytes # 2.2 K/mcL (0.6-4.6); Lymphocytes % 24.7 %; Mean Corpuscular HGB Conc 33.8 g/dL (31.6-35.5); Mean Corpuscular Hemoglobin 31.9 pg (28.0-33.3); Mean Corpuscular Volume 94.5 fL (83.0-100.0); Mean Platelet Volume 9.9 fL (9.4-12.4); Monocytes # 0.7 K/mcL (0.0-1.3); Monocytes % 7.5 %; Neutrophils # 5.7 K/mcL (1.6-8.9); Platelet Count 295 K/mcL (140-400); Red Blood Count 4.17 M/mcL (3.82-4.97); Segmented Neutrophils % 63.8 %
[2019-05-09] MEDS: Lidocaine Viscous Oral Soln 15 ML SOLUTION MM SCH ×6 (04:55→23:40)
[2019-05-09] MEDS ORDERED: Acetaminophen 325 MG TABLET PO PRN (08:29)
[2019-05-09] MEDS: Lactobacillus 1 EACH CAP.SPRINK PO SCH (08:46)
[2019-05-09] MEDS: Ketorolac 15 MG/ML VIAL IVP PRN ×2 (12:11→18:41)
[2019-05-09] MEDS: Sucralfate 1 GM TABLET PO SCH (17:23)
[2019-05-09] MEDS: traZODone 50 MG TABLET PO SCH (20:57)
[2019-05-09] MEDS: rOPINIRole 1 MG TABLET PO PRN (20:59)
[2019-05-09] MEDS ORDERED: Morphine Sulfate 2 MG/ML SYRINGE IVP ONE (22:44)
[2019-05-09] MEDS ORDERED: Mag Hydrox/Al Hydrox/Simeth 30 ML UDC PO PRN (22:46)
[2019-05-10] MEDS: Ketorolac 15 MG/ML VIAL IVP PRN ×2 (03:48→11:45)
[2019-05-10] MEDS: Lidocaine Viscous Oral Soln 15 ML SOLUTION MM SCH ×3 (03:48→11:45)
[2019-05-10] MEDS: Lactobacillus 1 EACH CAP.SPRINK PO SCH (07:53)
[2019-05-10] MEDS: Sucralfate 1 GM TABLET PO SCH (07:53)
[2019-05-10 14:46] VITALS: BP 161/78
== END 2019-05-10 17:05 | DRG 158 ==
LOC: 3BNU 20:11 → EMEROOARM 20:11 → SUATTDRO 05-08 03:38 → 3BNU 05-08 04:45
PROVIDERS: ADMIT Family Medicine; ATTEND Internal Medicine

== ENCOUNTER 2020-01-12 21:42 | Observation (INO) ==
[2020-01-12] MEDS ORDERED: Naloxone 0.4 MG/ML INJ IVP ONE (21:55)
[2020-01-12 22:30] LABS: Basophils # 0.1 K/mcL (0.0-0.2); Basophils % 0.4 %; Eosinophils # 0.2 K/mcL (0.0-0.6); Eosinophils % 1.3 %; Hematocrit 47.3 % (35.3-44.9); Hemoglobin 15.1 g/dL (11.5-15.4); Immature Granulocytes % 0.3 % (0-4); Lymphocytes # 1.6 K/mcL (0.6-4.6); Lymphocytes % 10.8 %; Mean Corpuscular HGB Conc 31.9 g/dL (31.6-35.5); Mean Corpuscular Hemoglobin 30.6 pg (28.0-33.3); Mean Corpuscular Volume 95.9 fL (83.0-100.0); Mean Platelet Volume 9.2 fL (9.4-12.4); Monocytes # 0.5 K/mcL (0.0-1.3); Monocytes % 3.3 %; Neutrophils # 12.6 K/mcL (1.6-8.9); Platelet Count 251 K/mcL (140-400); Red Blood Count 4.93 M/mcL (3.82-4.97); Red Cell Distribution Width 11.9 % (11.5-14.5); Segmented Neutrophils % 83.9 %
[2020-01-12 22:33] LABS: VBG HCO3 26 mEq/L (21-27); VBG PCO2 54 mmHg (41-51); VBG PH 7.29 pH Units (7.32-7.42); VBG PO2 36 mmHg (25-50)
[2020-01-12] MEDS ORDERED: 0.9 % Sodium Chloride 1,000 ML IVC ONE (22:33)
[2020-01-12 22:55] LABS: Acetaminophen < 10 mcg/mL (10-20); Alanine Aminotransferase 10 Units/L (7-52); Albumin/Globulin Ratio 1.9 (1.1-2.2); Alkaline Phosphatase 185 Units/L (34-104); Aspartate Amino Transferase 12 Units/L (13-39); BUN/Creatinine Ratio 14 (6-26); Bilirubin,Direct 0.1 mg/dL (0.0-0.2); Bilirubin,Indirect 0.3 mg/dL (0.0-1.0); Bilirubin,Total 0.4 mg/dL (0.3-1.0); Blood Urea Nitrogen 13 mg/dL (8-23); Calcium 10.4 mg/dL (8.6-10.3); Carbon Dioxide 23 mEq/L (23-29); Chloride 103 mEq/L (98-107); Creatine Kinase 148 Units/L (30-223); Ethanol < 10 mg/dL (Less than 10); Globulin 2.7 g/dL (2.4-3.5); Glucose 128 mg/dL (70-105); Lipase 24 Units/L (11-82); Magnesium 2.1 mg/dL (1.6-2.6); Osmolality,Calculated 286 (280-300); Potassium 3.6 mEq/L (3.5-5.1); Salicylate < 2.5 mg/dL (15.0-30.0); Sodium 137 mEq/L (136-145); Total Protein 7.7 g/dL (6.4-8.9); Troponin I < 0.03 ng/mL (< 0.04); eGFR For African Americans > 60 (> 60); eGFR For Non-African Americans > 60 (> 60)
[2020-01-12 23:40] LABS: Bilirubin,Urine Negative (Negative); Blood,Urine Negative (Negative); Clarity,Urine Clear (Clear); Color,Urine Yellow (Yellow); Glucose,Urine (UA) Normal (Normal); Hyaline Casts,Urine Few per lpf (None Seen); Ketones,Urine 10 mg/dL (Negative); Leukocyte Esterase,Urine Trace (Negative); Mucus,Urine Few per lpf (None-Few); Nitrite,Urine Negative (Negative); Protein,Urine Trace mg/dL (Neg-Trace); RBC,Urine 0-3 per hpf (0-3); Specific Gravity,Urine 1.021 (1.010-1.025)
[2020-01-13 00:01] LABS: Amphetamine Screen,Urine Negative ng/mL (Cutoff=1000); Barbiturate Screen,Urine Negative ng/mL (Cutoff=200); Benzodiazepines Screen,Urine Positive ng/mL (Cutoff=200); Cannabinoid Screen,Urine Negative ng/mL (Cutoff = 50); Cocaine Screen,Urine Negative ng/mL (Cutoff= 300); Opiate Screen,Urine Positive ng/mL (Cutoff=300); Phencyclidine Screen,Urine Negative ng/mL (Cutoff=25)
[2020-01-13] MEDS ORDERED: Ondansetron 4 MG/2 ML VIAL IVP PRN (01:47)
[2020-01-13] MEDS: 0.9 % Sodium Chloride 1,000 ML IVC SCH ×2 (03:31→10:21)
[2020-01-13] MEDS: Naloxone 0.4 MG/ML INJ IVP PRN ×2 (04:22→04:40)
[2020-01-13 04:47] LABS: ABG Base Excess -1 mEq/L (-2 to 3); ABG HCO3 24 mEq/L (21-27); ABG Oxygen Saturation 96 % (95-98); ABG PCO2 38 mmHg (35-45); ABG PO2 82 mmHg (85-104); ABG TCO2 25 mEq/L (20-26)
[2020-01-13] MEDS: *HR* Enoxaparin 40 MG/0.4 ML SYRINGE SQ SCH (05:07)
[2020-01-13 06:06] LABS: Basophils # 0.1 K/mcL (0.0-0.2); Basophils % 0.5 %; Eosinophils # 0.3 K/mcL (0.0-0.6); Eosinophils % 2.5 %; Hematocrit 42.2 % (35.3-44.9); Hemoglobin 13.4 g/dL (11.5-15.4); Immature Granulocytes % 0.3 % (0-4); Lymphocytes # 1.8 K/mcL (0.6-4.6); Lymphocytes % 14.2 %; Mean Corpuscular HGB Conc 31.8 g/dL (31.6-35.5); Mean Corpuscular Hemoglobin 31.2 pg (28.0-33.3); Mean Corpuscular Volume 98.4 fL (83.0-100.0); Mean Platelet Volume 9.4 fL (9.4-12.4); Monocytes # 0.6 K/mcL (0.0-1.3); Monocytes % 4.6 %; Neutrophils # 10.1 K/mcL (1.6-8.9); Platelet Count 193 K/mcL (140-400); Red Blood Count 4.29 M/mcL (3.82-4.97); Red Cell Distribution Width 11.9 % (11.5-14.5); Segmented Neutrophils % 77.9 %
[2020-01-13 06:08] LABS: Prothrombin Time 11.8 Seconds (9.4-12.1)
[2020-01-13 06:26] LABS: BUN/Creatinine Ratio 17 (6-26); Blood Urea Nitrogen 12 mg/dL (8-23); Calcium 8.9 mg/dL (8.6-10.3); Carbon Dioxide 21 mEq/L (23-29); Chloride 111 mEq/L (98-107); Glucose 92 mg/dL (70-105); Magnesium 1.9 mg/dL (1.6-2.6); Osmolality,Calculated 287 (280-300); Potassium 3.8 mEq/L (3.5-5.1); Sodium 139 mEq/L (136-145); eGFR For African Americans > 60 (> 60); eGFR For Non-African Americans > 60 (> 60)
[2020-01-13] MEDS ORDERED: Azithromycin 500 MG in 0.9 % Sodium Chloride 250 ML IVPB SCH (07:00)
[2020-01-13] MEDS ORDERED: cefTRIAXone 1,000 MG in Water for inj. (sterile) 10 ML IVP SCH (09:00)
[2020-01-13 13:10] LABS: Basophils # 0.1 K/mcL (0.0-0.2); Basophils % 0.5 %; Eosinophils # 0.2 K/mcL (0.0-0.6); Eosinophils % 2.2 %; Immature Granulocytes % 0.4 % (0-4); Lymphocytes # 1.5 K/mcL (0.6-4.6); Lymphocytes % 13.9 %; Mean Corpuscular HGB Conc 31.6 g/dL (31.6-35.5); Mean Corpuscular Hemoglobin 30.7 pg (28.0-33.3); Mean Corpuscular Volume 97.2 fL (83.0-100.0); Mean Platelet Volume 10.1 fL (9.4-12.4); Monocytes # 0.4 K/mcL (0.0-1.3); Monocytes % 3.2 %; Neutrophils # 8.9 K/mcL (1.6-8.9); Platelet Count 178 K/mcL (140-400); Red Blood Count 3.91 M/mcL (3.82-4.97); Red Cell Distribution Width 11.9 % (11.5-14.5); Segmented Neutrophils % 79.8 %; White Blood Count 11.1 K/mcL (4.3-11.1)
[2020-01-13] MEDS: rOPINIRole 0.25 MG TABLET PO SCH (20:31)
[2020-01-13] MEDS: Lithium Carbonate 300 MG CAPSULE PO SCH (20:31)
[2020-01-14] MEDS: *HR* Enoxaparin 40 MG/0.4 ML SYRINGE SQ SCH (04:51)
[2020-01-14] MEDS: Lithium Carbonate 300 MG CAPSULE PO SCH (09:05)
[2020-01-14] MEDS: rOPINIRole 0.25 MG TABLET PO SCH (09:05)
[2020-01-14] MEDS ORDERED: clonazePAM 1 MG TABLET PO PRN (09:35)
[2020-01-14 11:03] VITALS: BP 116/76
== END 2020-01-14 13:17 | disposition home or self-care (01) ==
LOC: 3NENU 21:42 → EMEROOARM 21:42 → SUATTDRO 01-13 00:43 → 3NENU 01-13 01:00
PROVIDERS: ADMIT Internal Medicine; ATTEND Internal Medicine

== ENCOUNTER 2020-04-07 14:49 | Observation (INO) ==
[2020-04-07 17:24] LABS: Bilirubin,Urine Negative (Negative); Blood,Urine Negative (Negative); Clarity,Urine Clear (Clear); Color,Urine Colorless (Yellow); Glucose,Urine (UA) Normal (Normal); Ketones,Urine Negative (Negative); Leukocyte Esterase,Urine Negative (Negative); Nitrite,Urine Negative (Negative); Protein,Urine Negative (Neg-Trace); Specific Gravity,Urine 1.007 (1.010-1.025); Urobilinogen,Urine Normal (Normal)
[2020-04-07 17:35] LABS: Basophils # 0.1 K/mcL (0.0-0.2); Basophils % 0.8 %; Eosinophils # 0.4 K/mcL (0.0-0.6); Eosinophils % 3.6 %; Hemoglobin 13.3 g/dL (11.5-15.4); Immature Granulocytes % 0.5 % (0-4); Lymphocytes # 2.4 K/mcL (0.6-4.6); Lymphocytes % 22.5 %; Mean Corpuscular HGB Conc 31.7 g/dL (31.6-35.5); Mean Corpuscular Hemoglobin 30.9 pg (28.0-33.3); Mean Corpuscular Volume 97.4 fL (83.0-100.0); Mean Platelet Volume 10.3 fL (9.4-12.4); Monocytes # 0.5 K/mcL (0.0-1.3); Monocytes % 4.3 %; Neutrophils # 7.2 K/mcL (1.6-8.9); Platelet Count 228 K/mcL (140-400); Red Blood Count 4.31 M/mcL (3.82-4.97); Red Cell Distribution Width 13.6 % (11.5-14.5); Segmented Neutrophils % 68.3 %; White Blood Count 10.6 K/mcL (4.3-11.1)
[2020-04-07 18:20] LABS: Alanine Aminotransferase 86 Units/L (7-52); Albumin 4.2 g/dL (3.5-5.7); Albumin/Globulin Ratio 1.9 (1.1-2.2); Alkaline Phosphatase 136 Units/L (34-104); Aspartate Amino Transferase 50 Units/L (13-39); BUN/Creatinine Ratio 13 (6-26); Bilirubin,Total 0.3 mg/dL (0.3-1.0); Blood Urea Nitrogen 12 mg/dL (8-23); Calcium 9.4 mg/dL (8.6-10.3); Carbon Dioxide 23 mEq/L (23-29); Chloride 106 mEq/L (98-107); Globulin 2.2 g/dL (2.4-3.5); Glucose 87 mg/dL (70-105); Magnesium 2.2 mg/dL (1.6-2.6); Osmolality,Calculated 283 (280-300); Potassium 4.3 mEq/L (3.5-5.1); Sodium 137 mEq/L (136-145); Total Protein 6.4 g/dL (6.4-8.9); eGFR For African Americans > 60 (> 60); eGFR For Non-African Americans > 60 (> 60)
[2020-04-07] MEDS ORDERED: Naloxone 0.4 MG/ML INJ IVP PRN (22:31)
[2020-04-07] MEDS ORDERED: Ondansetron ODT 4 MG TAB.RAPDIS SL PRN (22:31)
[2020-04-07] MEDS ORDERED: Mag Hydrox/Al Hydrox/Simeth 30 ML UDC PO PRN (22:31)
[2020-04-07] MEDS ORDERED: tiZANidine 4 MG TABLET PO PRN (23:11)
[2020-04-07] MEDS ORDERED: clonazePAM 0.5 MG TABLET PO PRN (23:11)
[2020-04-07] MEDS: Lithium Carbonate 300 MG CAPSULE PO SCH (23:39)
[2020-04-08 00:40] LABS: Hematocrit 40.1 % (35.3-44.9); Hemoglobin 12.9 g/dL (11.5-15.4); Mean Corpuscular HGB Conc 32.2 g/dL (31.6-35.5); Mean Corpuscular Hemoglobin 31.2 pg (28.0-33.3); Mean Corpuscular Volume 97.1 fL (83.0-100.0); Mean Platelet Volume 9.7 fL (9.4-12.4); Platelet Count 246 K/mcL (140-400); Red Blood Count 4.13 M/mcL (3.82-4.97); Red Cell Distribution Width 13.6 % (11.5-14.5); White Blood Count 12.1 K/mcL (4.3-11.1)
[2020-04-08 00:47] LABS: Alanine Aminotransferase 70 Units/L (7-52); Albumin 3.7 g/dL (3.5-5.7); Albumin/Globulin Ratio 1.9 (1.1-2.2); Alkaline Phosphatase 121 Units/L (34-104); Aspartate Amino Transferase 36 Units/L (13-39); BUN/Creatinine Ratio 15 (6-26); Bilirubin,Total 0.3 mg/dL (0.3-1.0); Blood Urea Nitrogen 15 mg/dL (8-23); Calcium 8.7 mg/dL (8.6-10.3); Carbon Dioxide 25 mEq/L (23-29); Chloride 110 mEq/L (98-107); Glucose 105 mg/dL (70-105); Osmolality,Calculated 287 (280-300); Potassium 4.3 mEq/L (3.5-5.1); Sodium 138 mEq/L (136-145); Total Protein 5.7 g/dL (6.4-8.9); eGFR For African Americans > 60 (> 60); eGFR For Non-African Americans 57 (> 60)
[2020-04-08] MEDS ORDERED: Acetaminophen 325 MG TABLET PO PRN (04:02)
[2020-04-08] MEDS: *HR* Heparin 5,000 UNIT/ML VIAL SQ SCH ×2 (04:07→16:45)
[2020-04-08] MEDS: rOPINIRole 0.25 MG TABLET PO SCH ×2 (09:46→22:39)
[2020-04-08] MEDS: *HR* OxyCODONE/APAP 5/325 TABLET PO PRN ×2 (10:41→16:46)
[2020-04-08] MEDS ORDERED: traZODone 50 MG TABLET PO SCH (21:00)
[2020-04-08] MEDS ORDERED: 0.9 % Sodium Chloride 1,000 ML IVC ONE (22:40)
[2020-04-08] MEDS: Lithium Carbonate 300 MG CAPSULE PO SCH (22:41)
[2020-04-08 23:35] LABS: Amphetamine Screen,Urine Negative ng/mL (Cutoff=1000); Barbiturate Screen,Urine Negative ng/mL (Cutoff=200); Benzodiazepines Screen,Urine Negative ng/mL (Cutoff=200); Cannabinoid Screen,Urine Negative ng/mL (Cutoff = 50); Cocaine Screen,Urine Negative ng/mL (Cutoff= 300); Opiate Screen,Urine Negative ng/mL (Cutoff=300); Phencyclidine Screen,Urine Negative ng/mL (Cutoff=25)
[2020-04-09] MEDS: *HR* OxyCODONE/APAP 5/325 TABLET PO PRN ×2 (00:12→08:48)
[2020-04-09] MEDS: *HR* Heparin 5,000 UNIT/ML VIAL SQ SCH (05:34)
[2020-04-09 06:34] VITALS: BP 109/46
[2020-04-09] MEDS: rOPINIRole 0.25 MG TABLET PO SCH (08:48)
== END 2020-04-09 11:41 | disposition home or self-care (01) ==
LOC: EMEROOARM 14:49 → 3BNU 14:49 → SUATTDRO 20:51 → 3BNU 21:43
PROVIDERS: ADMIT Family Medicine; ATTEND Family Medicine

== ENCOUNTER 2020-07-07 07:42 | Observation (INO) ==
[2020-07-07] MEDS ORDERED: Ondansetron 4 MG/2 ML VIAL IVP ONE (07:46)
[2020-07-07] MEDS ORDERED: Isovue-370 500 ML BOTTLE IVP ONE (07:56)
[2020-07-07] MEDS ORDERED: 0.9 % Sodium Chloride 1,000 ML IVC ONE (08:18)
[2020-07-07 08:38] LABS: Basophils % 0.2 %; Eosinophils # 0.3 K/mcL (0.0-0.6); Eosinophils % 3.2 %; Hematocrit 39.2 % (35.3-44.9); Hemoglobin 12.7 g/dL (11.5-15.4); Immature Granulocytes % 0.2 % (0-4); Lymphocytes # 1.3 K/mcL (0.6-4.6); Lymphocytes % 16.3 %; Mean Corpuscular HGB Conc 32.4 g/dL (31.6-35.5); Mean Corpuscular Hemoglobin 32.4 pg (28.0-33.3); Mean Platelet Volume 10.3 fL (9.4-12.4); Monocytes # 0.4 K/mcL (0.0-1.3); Monocytes % 4.6 %; Neutrophils # 6.1 K/mcL (1.6-8.9); Platelet Count 227 K/mcL (140-400); Red Blood Count 3.92 M/mcL (3.82-4.97); Red Cell Distribution Width 12.3 % (11.5-14.5); Segmented Neutrophils % 75.5 %; White Blood Count 8.1 K/mcL (4.3-11.1)
[2020-07-07 08:50] LABS: Prothrombin Time 11.9 Seconds (9.4-12.1)
[2020-07-07 08:53] LABS: Albumin 4.2 g/dL (3.5-5.7); Albumin/Globulin Ratio 1.9 (1.1-2.2); Bilirubin,Indirect 0.2 mg/dL (0.0-1.0); Bilirubin,Total 0.2 mg/dL (0.3-1.0); Globulin 2.2 g/dL (2.4-3.5); Total Protein 6.4 g/dL (6.4-8.9)
[2020-07-07 08:55] LABS: BUN/Creatinine Ratio 15 (6-26); Blood Urea Nitrogen 15 mg/dL (8-23); Calcium 10.2 mg/dL (8.6-10.3); Carbon Dioxide 24 mEq/L (23-29); Chloride 108 mEq/L (98-107); Glucose 117 mg/dL (70-105); Osmolality,Calculated 290 (280-300); Potassium 3.6 mEq/L (3.5-5.1); Sodium 139 mEq/L (136-145); Troponin I < 0.03 ng/mL (< 0.04); eGFR For African Americans > 60 (> 60); eGFR For Non-African Americans 57 (> 60)
[2020-07-07 09:03] LABS: Bilirubin,Urine Negative (Negative); Blood,Urine Negative (Negative); Clarity,Urine Clear (Clear); Color,Urine Light-Yellow (Yellow); Glucose,Urine (UA) Normal (Normal); Ketones,Urine Negative (Negative); Leukocyte Esterase,Urine Negative (Negative); Nitrite,Urine Negative (Negative); Protein,Urine Negative (Neg-Trace); Specific Gravity,Urine 1.022 (1.010-1.025); Urobilinogen,Urine Normal (Normal)
[2020-07-07] MEDS ORDERED: Morphine Sulfate 2 MG/ML SYRINGE IVP STA (11:31)
[2020-07-07] MEDS ORDERED: Naloxone 0.4 MG/ML INJ IVP PRN (13:17)
[2020-07-07 16:06] LABS: Hematocrit 37.1 % (35.3-44.9); Hemoglobin 11.9 g/dL (11.5-15.4)
[2020-07-07] MEDS: tiZANidine 4 MG TABLET PO SCH (17:54)
[2020-07-07] MEDS: Pantoprazole 40 MG VIAL IVP SCH (17:55)
[2020-07-07] MEDS ORDERED: Acetaminophen IV 500 MG/50 ML BAG IVPB ONE (18:44)
[2020-07-07] MEDS: clonazePAM 0.5 MG TABLET PO PRN (20:10)
[2020-07-07] MEDS: rOPINIRole 0.25 MG TABLET PO SCH (20:10)
[2020-07-07] MEDS: Lithium Carbonate 300 MG CAPSULE PO SCH (20:11)
[2020-07-07] MEDS: traZODone 50 MG TABLET PO SCH (20:11)
[2020-07-08 00:28] LABS: Hematocrit 36.3 % (35.3-44.9); Hemoglobin 11.7 g/dL (11.5-15.4)
[2020-07-08] MEDS: tiZANidine 4 MG TABLET PO SCH ×3 (00:45→16:15)
[2020-07-08 00:48] LABS: Alanine Aminotransferase 28 Units/L (7-52); Albumin 3.5 g/dL (3.5-5.7); Albumin/Globulin Ratio 1.8 (1.1-2.2); Alkaline Phosphatase 87 Units/L (34-104); Aspartate Amino Transferase 15 Units/L (13-39); Bilirubin,Direct 0.1 mg/dL (0.0-0.2); Bilirubin,Indirect 0.1 mg/dL (0.0-1.0); Bilirubin,Total 0.2 mg/dL (0.3-1.0); Total Protein 5.5 g/dL (6.4-8.9)
[2020-07-08 00:49] LABS: Troponin I < 0.03 ng/mL (< 0.04)
[2020-07-08 05:39] LABS: Hemoglobin 11.8 g/dL (11.5-15.4); Mean Corpuscular HGB Conc 31.9 g/dL (31.6-35.5); Mean Corpuscular Hemoglobin 31.8 pg (28.0-33.3); Mean Corpuscular Volume 99.7 fL (83.0-100.0); Mean Platelet Volume 10.1 fL (9.4-12.4); Platelet Count 188 K/mcL (140-400); Red Blood Count 3.71 M/mcL (3.82-4.97); Red Cell Distribution Width 12.1 % (11.5-14.5); White Blood Count 7.2 K/mcL (4.3-11.1)
[2020-07-08] MEDS: Pantoprazole 40 MG VIAL IVP SCH ×2 (06:31→17:49)
[2020-07-08] MEDS ORDERED: Acetaminophen 325 MG TABLET PO PRN ×2 (06:43→18:07)
[2020-07-08] MEDS: clonazePAM 0.5 MG TABLET PO PRN (08:59)
[2020-07-08] MEDS: BREXPIPRAZOLE 2 MG PO SCH (09:00)
[2020-07-08] MEDS: rOPINIRole 0.25 MG TABLET PO SCH ×2 (09:00→20:12)
[2020-07-08 09:24] LABS: BUN/Creatinine Ratio 16 (6-26); Blood Urea Nitrogen 15 mg/dL (8-23); Calcium 8.8 mg/dL (8.6-10.3); Carbon Dioxide 22 mEq/L (23-29); Chloride 111 mEq/L (98-107); Glucose 108 mg/dL (70-105); Osmolality,Calculated 291 (280-300); Potassium 3.6 mEq/L (3.5-5.1); Sodium 140 mEq/L (136-145); eGFR For African Americans > 60 (> 60); eGFR For Non-African Americans > 60 (> 60)
[2020-07-08] MEDS ORDERED: Acetaminophen IV 500 MG/50 ML BAG IVPB ONE (09:59)
[2020-07-08] MEDS ORDERED: 0.9 % Sodium Chloride 500 ML IVC ONE (11:19)
[2020-07-08] MEDS ORDERED: Acetaminophen/Butalbital/CaffeineTABLET PO ONE (16:02)
[2020-07-08] MEDS: Lithium Carbonate 300 MG CAPSULE PO SCH (20:11)
[2020-07-08] MEDS: traZODone 50 MG TABLET PO SCH (20:12)
[2020-07-08] MEDS ORDERED: Acetaminophen/Butalbital/CaffeineTABLET PO PRN (22:15)
[2020-07-08] MEDS ORDERED: Ibuprofen 600 MG TABLET PO ONE (23:58)
[2020-07-09] MEDS: tiZANidine 4 MG TABLET PO SCH ×2 (00:47→09:35)
[2020-07-09 04:37] LABS: Hematocrit 34.8 % (35.3-44.9); Hemoglobin 11.1 g/dL (11.5-15.4); Mean Corpuscular HGB Conc 31.9 g/dL (31.6-35.5); Mean Corpuscular Hemoglobin 32.4 pg (28.0-33.3); Mean Corpuscular Volume 101.5 fL (83.0-100.0); Mean Platelet Volume 10.8 fL (9.4-12.4); Platelet Count 151 K/mcL (140-400); Red Blood Count 3.43 M/mcL (3.82-4.97); Red Cell Distribution Width 12.1 % (11.5-14.5); White Blood Count 8.6 K/mcL (4.3-11.1)
[2020-07-09] MEDS: Pantoprazole 40 MG VIAL IVP SCH (05:18)
[2020-07-09] MEDS ORDERED: MethylPREDNISolone 40 MG/ML VIAL IVP ONE (09:06)
[2020-07-09] MEDS: rOPINIRole 0.25 MG TABLET PO SCH (09:35)
[2020-07-09] MEDS: clonazePAM 0.5 MG TABLET PO PRN (09:35)
[2020-07-09] MEDS: BREXPIPRAZOLE 2 MG PO SCH (09:36)
[2020-07-09 11:21] VITALS: BP 97/62
== END 2020-07-09 12:40 | disposition home or self-care (01) ==
LOC: 3BNU 07:42 → EMEROOARM 07:42 → SUATTDRO 13:05 → 3BNU 13:45
PROVIDERS: ADMIT Family Medicine; ATTEND Nurse Practitioner

== ENCOUNTER 2020-10-25 10:04 | Inpatient (IN) ==
[2020-10-25] MEDS ORDERED: Piperacillin/Tazobactam 3.375 GM in Water for inj. (sterile) 20 ML IVP ONE (12:19)
[2020-10-25] MEDS ORDERED: methylPREDNISolone 125 MG/2 ML VIAL IVP ONE (13:16)
[2020-10-25] MEDS: 0.9 % Sodium Chloride 1,000 ML IVC SCH ×3 (13:19→14:37)
[2020-10-25 13:34] LABS: VBG HCO3 16 mEq/L (21-27); VBG PCO2 36 mmHg (41-51); VBG PH 7.25 pH Units (7.32-7.42); VBG PO2 75 mmHg (25-50)
[2020-10-25 13:35] LABS: Basophils % 0.3 %; Eosinophils # 0.2 K/mcL (0.0-0.6); Eosinophils % 1.5 %; Hematocrit 37.2 % (35.3-44.9); Immature Granulocytes % 0.3 % (0-4); Lymphocytes # 1.2 K/mcL (0.6-4.6); Lymphocytes % 12.1 %; Mean Corpuscular HGB Conc 33.3 g/dL (31.6-35.5); Mean Corpuscular Hemoglobin 31.8 pg (28.0-33.3); Mean Corpuscular Volume 95.4 fL (83.0-100.0); Monocytes # 0.3 K/mcL (0.0-1.3); Monocytes % 3.3 %; Neutrophils # 8.1 K/mcL (1.6-8.9); Platelet Count 199 K/mcL (140-400); Segmented Neutrophils % 82.5 %; White Blood Count 9.8 K/mcL (4.3-11.1)
[2020-10-25 13:36] LABS: Hemoglobin 12.4 g/dL (11.5-15.4)
[2020-10-25 13:50] LABS: INR 1.1; Prothrombin Time 12.8 Seconds (9.4-12.1)
[2020-10-25 13:52] LABS: Acetaminophen < 10 mcg/mL (10-20); Ethanol < 10 mg/dL (Less than 10); Salicylate < 2.5 mg/dL (15.0-30.0)
[2020-10-25 13:53] LABS: Activated Partial Thrombo Time 42.7 Seconds (26.0-36.0)
[2020-10-25 13:57] LABS: Alanine Aminotransferase 77 Units/L (7-52); Albumin 4.1 g/dL (3.5-5.7); Albumin/Globulin Ratio 1.9 (1.1-2.2); Alkaline Phosphatase 166 Units/L (34-104); Aspartate Amino Transferase 31 Units/L (13-39); BUN/Creatinine Ratio 15 (6-26); Bilirubin,Direct 0.1 mg/dL (0.0-0.2); Bilirubin,Indirect 0.2 mg/dL (0.0-1.0); Bilirubin,Total 0.3 mg/dL (0.3-1.0); Blood Urea Nitrogen 14 mg/dL (8-23); Carbon Dioxide 16 mEq/L (23-29); Chloride 111 mEq/L (98-107); Globulin 2.2 g/dL (2.4-3.5); Glucose 75 mg/dL (70-105); Lipase 10 Units/L (11-82); Osmolality,Calculated 285 (280-300); Phosphorous 3.3 mg/dL (2.7-4.5); Potassium 3.5 mEq/L (3.5-5.1); Sodium 138 mEq/L (136-145); Total Protein 6.3 g/dL (6.4-8.9); Troponin I < 0.03 ng/mL (< 0.04); eGFR For African Americans > 60 (> 60); eGFR For Non-African Americans 59 (> 60)
[2020-10-25 14:00] LABS: Bilirubin,Urine Negative (Negative); Blood,Urine Negative (Negative); Clarity,Urine Clear (Clear); Color,Urine Light-Yellow (Yellow); Glucose,Urine (UA) Normal (Normal); Ketones,Urine 80 mg/dL (Negative); Leukocyte Esterase,Urine Negative (Negative); Nitrite,Urine Negative (Negative); PH,Urine 5.5 pH Units (5.0-8.0); Protein,Urine Negative (Neg-Trace); Specific Gravity,Urine 1.017 (1.010-1.025); Urobilinogen,Urine Normal (Normal)
[2020-10-25] MEDS ORDERED: *HR* Norepinephrine 4 MG/4 ML VIAL IVC ONE (14:07)
[2020-10-25] MEDS ORDERED: 0.9 % Sodium Chloride 250 ML ONE (14:07)
[2020-10-25 14:09] LABS: Amphetamine Screen,Urine Negative ng/mL (Cutoff=1000); Barbiturate Screen,Urine Negative ng/mL (Cutoff=200); Benzodiazepines Screen,Urine Negative ng/mL (Cutoff=200); Cannabinoid Screen,Urine Negative ng/mL (Cutoff = 50); Cocaine Screen,Urine Negative ng/mL (Cutoff= 300); Opiate Screen,Urine Positive ng/mL (Cutoff=300); Phencyclidine Screen,Urine Negative ng/mL (Cutoff=25)
[2020-10-25] MEDS: Norepinephrine 4 MG/254 ML IV.SOLN IVC SCH (14:14)
[2020-10-25] MEDS ORDERED: 0.9 % Sodium Chloride 1,000 ML IVC ONE (16:02)
[2020-10-25] MEDS ORDERED: Naloxone 0.4 MG/ML INJ IVP PRN (17:54)
[2020-10-25] MEDS ORDERED: levoFLOXacin 750 MG/150 ML 750 MG/150 ML BAG IVPB SCH (18:00)
[2020-10-25] MEDS: tiZANidine 4 MG TABLET PO SCH (19:04)
[2020-10-25 20:42] LABS: VBG Ionized Calcium 1.12 mmol/L (1.15-1.35)
[2020-10-25] MEDS ORDERED: Lithium Carbonate 300 MG CAPSULE PO SCH (21:00)
[2020-10-25] MEDS ORDERED: Ondansetron 4 MG/2 ML VIAL IVP PRN (21:01)
[2020-10-25] MEDS ORDERED: Ondansetron 4 MG/2 ML VIAL ONE (21:16)
[2020-10-25] MEDS: clonazePAM 1 MG TABLET PO SCH (21:19)
[2020-10-25] MEDS: *HR* Heparin 5,000 UNIT/ML VIAL SQ SCH (21:19)
[2020-10-25] MEDS: rOPINIRole 0.25 MG TABLET PO SCH (21:20)
[2020-10-26] MEDS: Ringers Solution, Lactated 1,000 ML IVC SCH ×4 (00:17→17:42)
[2020-10-26] MEDS: MetroNIDAZOLE 500 MG/100 ML 500 MG/100 ML BAG IVPB SCH ×4 (00:18→23:57)
[2020-10-26] MEDS: 0.9 % Sodium Chloride 1,000 ML IVC SCH ×2 (02:30→07:56)
[2020-10-26] MEDS: tiZANidine 4 MG TABLET PO SCH ×3 (03:01→17:47)
[2020-10-26 03:53] LABS: Basophils % 0.1 %; Eosinophils % 0.1 %; Hematocrit 30.6 % (35.3-44.9); Immature Granulocytes % 0.6 % (0-4); Lymphocytes # 1.1 K/mcL (0.6-4.6); Lymphocytes % 9.6 %; Mean Corpuscular HGB Conc 33.7 g/dL (31.6-35.5); Mean Corpuscular Hemoglobin 32.4 pg (28.0-33.3); Mean Corpuscular Volume 96.2 fL (83.0-100.0); Mean Platelet Volume 9.9 fL (9.4-12.4); Monocytes # 0.6 K/mcL (0.0-1.3); Monocytes % 4.9 %; Neutrophils # 9.7 K/mcL (1.6-8.9); Platelet Count 189 K/mcL (140-400); Red Blood Count 3.18 M/mcL (3.82-4.97); Red Cell Distribution Width 11.8 % (11.5-14.5); Segmented Neutrophils % 84.7 %; White Blood Count 11.5 K/mcL (4.3-11.1)
[2020-10-26 03:56] LABS: Hemoglobin 10.3 g/dL (11.5-15.4)
[2020-10-26 04:12] LABS: Alanine Aminotransferase 58 Units/L (7-52); Albumin 3.1 g/dL (3.5-5.7); Albumin/Globulin Ratio 2.1 (1.1-2.2); Alkaline Phosphatase 122 Units/L (34-104); Aspartate Amino Transferase 25 Units/L (13-39); BUN/Creatinine Ratio 12 (6-26); Bilirubin,Total 0.3 mg/dL (0.3-1.0); Blood Urea Nitrogen 10 mg/dL (8-23); Calcium 7.5 mg/dL (8.6-10.3); Carbon Dioxide 13 mEq/L (23-29); Chloride 117 mEq/L (98-107); Globulin 1.5 g/dL (2.4-3.5); Glucose 82 mg/dL (70-105); Magnesium 1.5 mg/dL (1.6-2.6); Osmolality,Calculated 284 (280-300); Potassium 3.7 mEq/L (3.5-5.1); Sodium 138 mEq/L (136-145); Total Protein 4.6 g/dL (6.4-8.9); eGFR For African Americans > 60 (> 60); eGFR For Non-African Americans > 60 (> 60)
[2020-10-26] MEDS: Sucralfate 1 GM TABLET PO PRN ×2 (05:24→16:07)
[2020-10-26] MEDS: *HR* Heparin 5,000 UNIT/ML VIAL SQ SCH ×3 (05:24→20:36)
[2020-10-26] MEDS ORDERED: Pantoprazole 40 MG VIAL IVP SCH (09:00)
[2020-10-26] MEDS: rOPINIRole 0.25 MG TABLET PO SCH ×2 (09:39→20:36)
[2020-10-26] MEDS: clonazePAM 1 MG TABLET PO SCH ×3 (09:39→20:35)
[2020-10-26] MEDS ORDERED: Ringers Solution, Lactated 1,000 ML IVC SCH (10:45)
[2020-10-26] MEDS ORDERED: Calcium Gluconate 1gm/50mL 1 GM/50 ML BAG IVPB ONE (12:23)
[2020-10-26 13:26] LABS: BUN/Creatinine Ratio 11 (6-26); Blood Urea Nitrogen 9 mg/dL (8-23); Calcium 8.2 mg/dL (8.6-10.3); Carbon Dioxide 16 mEq/L (23-29); Chloride 118 mEq/L (98-107); Glucose 106 mg/dL (70-105); Osmolality,Calculated 289 (280-300); Potassium 3.4 mEq/L (3.5-5.1); Sodium 140 mEq/L (136-145); eGFR For African Americans > 60 (> 60); eGFR For Non-African Americans > 60 (> 60)
[2020-10-26] MEDS: Norepinephrine 4 MG/254 ML IV.SOLN IVC SCH (14:38)
[2020-10-26] MEDS ORDERED: Naloxone 0.4 MG/ML INJ IVP PRN (16:09)
[2020-10-26] MEDS ORDERED: Sucralfate 1 GM TABLET PO PRN (16:09)
[2020-10-26] MEDS ORDERED: Ondansetron 4 MG/2 ML VIAL IVP PRN (16:09)
[2020-10-26] MEDS: levoFLOXacin 750 MG/150 ML 750 MG/150 ML BAG IVPB SCH (17:40)
[2020-10-26] MEDS: Lithium Carbonate 300 MG CAPSULE PO SCH (20:35)
[2020-10-26] MEDS: traZODone 50 MG TABLET PO SCH (23:41)
[2020-10-27] MEDS: tiZANidine 4 MG TABLET PO SCH ×3 (01:30→17:21)
[2020-10-27] MEDS: Ringers Solution, Lactated 1,000 ML IVC SCH (05:33)
[2020-10-27] MEDS: *HR* Heparin 5,000 UNIT/ML VIAL SQ SCH ×3 (05:33→20:36)
[2020-10-27 08:23] LABS: White Blood Count 5.8 K/mcL (4.3-11.1)
[2020-10-27 08:25] LABS: Hematocrit 30.3 % (35.3-44.9); Hemoglobin 10.2 g/dL (11.5-15.4); Immature Platelets 2.8 % (1.1-6.1); Mean Corpuscular HGB Conc 33.7 g/dL (31.6-35.5); Mean Corpuscular Hemoglobin 31.9 pg (28.0-33.3); Mean Corpuscular Volume 94.7 fL (83.0-100.0); Mean Platelet Volume 10.2 fL (9.4-12.4); Red Blood Count 3.2 M/mcL (3.82-4.97); Red Cell Distribution Width 12.3 % (11.5-14.5)
[2020-10-27 08:43] LABS: BUN/Creatinine Ratio 7 (6-26); Blood Urea Nitrogen 6 mg/dL (8-23); Calcium 8.3 mg/dL (8.6-10.3); Carbon Dioxide 20 mEq/L (23-29); Chloride 117 mEq/L (98-107); Glucose 93 mg/dL (70-105); Osmolality,Calculated 291 (280-300); Potassium 3.5 mEq/L (3.5-5.1); Sodium 142 mEq/L (136-145); eGFR For African Americans > 60 (> 60); eGFR For Non-African Americans > 60 (> 60)
[2020-10-27] MEDS: rOPINIRole 0.25 MG TABLET PO SCH ×2 (09:07→20:35)
[2020-10-27] MEDS: clonazePAM 1 MG TABLET PO SCH ×3 (09:07→20:34)
[2020-10-27] MEDS: MetroNIDAZOLE 500 MG/100 ML 500 MG/100 ML BAG IVPB SCH ×3 (10:11→23:56)
[2020-10-27] MEDS: levoFLOXacin 750 MG/150 ML 750 MG/150 ML BAG IVPB SCH (17:21)
[2020-10-27] MEDS: traZODone 50 MG TABLET PO SCH (20:35)
[2020-10-27] MEDS: Lithium Carbonate 300 MG CAPSULE PO SCH (20:35)
[2020-10-27 20:59] LABS: Adenovirus F 40/41 PCR Not detected (Not detect); Astrovirus PCR Not detected (Not detect); C.difficile Toxin A/B Gene PCR Not detected (Not detect); Campylobacter by PCR Not detected (Not detect); Cryptosporidium by PCR Not detected (Not detect); Cyclospora cayetanensis PCR Not detected (Not detect); E. coli O157 by PCR Not detected (Not detect); Entamoeba histolytica PCR Not detected (Not detect); Enteroaggregative E.coli(EAEC) Not detected (Not detect); Enteropathogenic E.coli(EPEC) Not detected (Not detect); Enterotoxigenic E.coli (ETEC) Not detected (Not detect); Giardia lamblia PCR Not detected (Not detect); Norovirus GI/GII PCR Not detected (Not detect); Plesiomonas shigelloides PCR Not detected (Not detect); Rotavirus A PCR Not detected (Not detect); Salmonella PCR Not detected (Not detect); Sapovirus PCR Not detected (Not detect); Shig/EnteroinvasiveE coli EIEC Not detected (Not detect); Shigalike tox-prod E coli STEC Not detected (Not detect); Vibrio PCR Not detected (Not detect); Vibrio cholerae PCR Not detected (Not detect); Yersinia enterocolitica PCR Not detected (Not detect)
[2020-10-28] MEDS: tiZANidine 4 MG TABLET PO SCH ×2 (00:57→09:15)
[2020-10-28] MEDS: *HR* Heparin 5,000 UNIT/ML VIAL SQ SCH (05:22)
[2020-10-28] MEDS: MetroNIDAZOLE 500 MG/100 ML 500 MG/100 ML BAG IVPB SCH (09:14)
[2020-10-28] MEDS: clonazePAM 1 MG TABLET PO SCH (09:15)
[2020-10-28] MEDS: rOPINIRole 0.25 MG TABLET PO SCH (09:15)
[2020-10-28 09:22] LABS: Basophils % 0.3 %; Eosinophils # 0.3 K/mcL (0.0-0.6); Eosinophils % 4.5 %; Hematocrit 32.9 % (35.3-44.9); Hemoglobin 10.8 g/dL (11.5-15.4); Immature Granulocytes % 0.5 % (0-4); Lymphocytes # 1.1 K/mcL (0.6-4.6); Lymphocytes % 17.3 %; Mean Corpuscular HGB Conc 32.8 g/dL (31.6-35.5); Mean Corpuscular Hemoglobin 31.3 pg (28.0-33.3); Mean Corpuscular Volume 95.4 fL (83.0-100.0); Mean Platelet Volume 10.5 fL (9.4-12.4); Monocytes # 0.3 K/mcL (0.0-1.3); Monocytes % 5.1 %; Neutrophils # 4.7 K/mcL (1.6-8.9); Platelet Count 156 K/mcL (140-400); Red Blood Count 3.45 M/mcL (3.82-4.97); Red Cell Distribution Width 12.6 % (11.5-14.5); Segmented Neutrophils % 72.3 %; White Blood Count 6.5 K/mcL (4.3-11.1)
[2020-10-28 09:57] LABS: BUN/Creatinine Ratio 8 (6-26); Blood Urea Nitrogen 7 mg/dL (8-23); Calcium 8.4 mg/dL (8.6-10.3); Carbon Dioxide 22 mEq/L (23-29); Chloride 114 mEq/L (98-107); Glucose 139 mg/dL (70-105); Magnesium 1.7 mg/dL (1.6-2.6); Osmolality,Calculated 300 (280-300); Phosphorous 1.5 mg/dL (2.7-4.5); Potassium 3.4 mEq/L (3.5-5.1); Sodium 145 mEq/L (136-145); eGFR For African Americans > 60 (> 60); eGFR For Non-African Americans > 60 (> 60)
[2020-10-28 11:28] VITALS: BP 88/52
== END 2020-10-28 13:09 | disposition home or self-care (01) | DRG 391 ==
LOC: ICNU 10:04 → EMEROOARM 10:04 → ICNU 16:33 → SUATTDRO 18:24 → 2NENU 10-27 02:45
PROVIDERS: ADMIT Internal Medicine; ATTEND Internal Medicine

== ENCOUNTER 2021-10-02 06:06 | Observation (INO) ==
[2021-10-02] MEDS ORDERED: Ringers Solution, Lactated 1,000 ML IVC SCH (06:30)
[2021-10-02] MEDS ORDERED: CeFAZolin Syr 2,000MG/20 ML 2,000 MG/20 ML SYRINGE IVPB ONE (06:30)
[2021-10-02] MEDS ORDERED: Famotidine 20 MG TABLET PO ONE (07:00)
[2021-10-02] MEDS ORDERED: Pregabalin 75 MG CAPSULE PO ONE (07:00)
[2021-10-02] MEDS: tiZANidine 4 MG TABLET PO SCH (07:01)
[2021-10-02] MEDS ORDERED: *HR* FentaNYL (PF) 100 MCG/2 ML VIAL ONE (07:13)
[2021-10-02] MEDS ORDERED: *HR* Rocuronium Bromide 50 MG/5 ML VIAL ONE (07:13)
[2021-10-02] MEDS ORDERED: *HR* Propofol 200 MG/20 ML VIAL IVP ONE (07:13)
[2021-10-02] MEDS ORDERED: Ondansetron 4 MG/2 ML VIAL ONE (07:13)
[2021-10-02] MEDS ORDERED: *HR* Midazolam HCl 2 MG/2 ML VIAL ONE (07:13)
[2021-10-02] MEDS ORDERED: Lidocaine HCL 4 ML Topical Solution (Laryng-O-Jet Kit Sterile Pak) TP ONE (07:13)
[2021-10-02] MEDS ORDERED: *HR* Succinylcholine 200 MG/10 ML VIAL IVP ONE (07:13)
[2021-10-02] MEDS ORDERED: Vancomycin 1,000 MG VIAL ONE (07:19)
[2021-10-02] MEDS ORDERED: Ondansetron 4 MG/2 ML VIAL IVP PRN ×2 (07:20→12:41)
[2021-10-02] MEDS ORDERED: *HR* FentaNYL (PF) 100 MCG/2 ML VIAL IVP PRN (07:20)
[2021-10-02] MEDS ORDERED: Albuterol 2.5 MG/3 ML NEBULIZER IH ONE (07:29)
[2021-10-02] MEDS ORDERED: *HR* Remifentanil 2 MG VIAL IVP ONE (07:29)
[2021-10-02] MEDS ORDERED: *HR* Phenylephrine 10 MG/ML VIAL ONE (07:29)
[2021-10-02] MEDS: *HR* HYDROmorphone PF 0.5 MG/0.5 ML SYRINGE IVP PRN ×2 (11:24→11:30)
[2021-10-02] MEDS ORDERED: Albumin Human 5% 12.5 GM/250 ML IV.SOLN IVPB ONE (12:09)
[2021-10-02] MEDS ORDERED: Albumin Human 5% 12.5 GM/250 ML IV.SOLN ONE (12:12)
[2021-10-02] MEDS ORDERED: Naloxone 0.4 MG/ML INJ IVP PRN (12:41)
[2021-10-02] MEDS ORDERED: Acetaminophen 325 MG TABLET PO PRN (12:41)
[2021-10-02] MEDS ORDERED: [UNRECOGNIZED DRUG - OTHER] PO PRN (12:55)
[2021-10-02] MEDS: Ringers Solution, Lactated 1,000 ML IVC SCH ×2 (13:03→23:26)
[2021-10-02] MEDS ORDERED: clonazePAM 1 MG TABLET PO PRN (15:00)
[2021-10-02] MEDS: CeFAZolin 2 GM/120 ML BAG IVPB SCH ×2 (17:02→23:26)
[2021-10-02] MEDS: Lithium Carbonate 300 MG CAPSULE PO SCH (21:32)
[2021-10-02] MEDS: rOPINIRole 0.25 MG TABLET PO SCH (23:23)
[2021-10-02] MEDS: traZODone 50 MG TABLET PO SCH (23:23)
[2021-10-03] MEDS: *HR* HYDROcodone/Acet 5/325 mg TABLET PO PRN ×2 (05:49→12:48)
[2021-10-03 06:38] LABS: Basophils % 0.3 %; Eosinophils % 0.4 %; Hematocrit 28.2 % (35.3-44.9); Hemoglobin 9.1 g/dL (11.5-15.4); Immature Granulocytes % 0.6 % (0-4); Lymphocytes # 0.5 K/mcL (0.6-4.6); Mean Corpuscular HGB Conc 32.3 g/dL (31.6-35.5); Mean Corpuscular Hemoglobin 32.7 pg (28.0-33.3); Mean Corpuscular Volume 101.4 fL (83.0-100.0); Mean Platelet Volume 10.8 fL (9.4-12.4); Monocytes # 0.9 K/mcL (0.0-1.3); Monocytes % 8.7 %; Neutrophils # 9.2 K/mcL (1.6-8.9); Platelet Count 137 K/mcL (140-400); Red Blood Count 2.78 M/mcL (3.82-4.97); Red Cell Distribution Width 12.5 % (11.5-14.5); White Blood Count 10.9 K/mcL (4.3-11.1)
[2021-10-03] MEDS: diazePAM 10 MG TABLET PO PRN (09:02)
[2021-10-03] MEDS: rOPINIRole 0.25 MG TABLET PO SCH ×2 (09:02→20:50)
[2021-10-03] MEDS: FLUoxetine 20 MG CAPSULE PO SCH (09:02)
[2021-10-03] MEDS: BREXPIPRAZOLE 3 MG PO SCH (09:03)
[2021-10-03] MEDS: TOPIRAMATE 100 MG PO SCH (09:05)
[2021-10-03] MEDS: *HR* OxyCODONE Immed Rel 5 MG TABLET PO PRN ×3 (10:41→23:34)
[2021-10-03] MEDS: Lithium Carbonate 300 MG CAPSULE PO SCH (20:50)
[2021-10-03] MEDS: Ringers Solution, Lactated 1,000 ML IVC SCH (20:50)
[2021-10-03] MEDS: traZODone 50 MG TABLET PO SCH (23:44)
[2021-10-04] MEDS: *HR* OxyCODONE Immed Rel 5 MG TABLET PO PRN ×4 (04:01→22:19)
[2021-10-04] MEDS: diazePAM 10 MG TABLET PO PRN ×2 (06:12→15:32)
[2021-10-04] MEDS: Ringers Solution, Lactated 1,000 ML IVC SCH ×3 (07:54→22:20)
[2021-10-04] MEDS: tiZANidine 4 MG TABLET PO SCH (07:57)
[2021-10-04] MEDS: rOPINIRole 0.25 MG TABLET PO SCH ×2 (10:27→22:11)
[2021-10-04] MEDS: FLUoxetine 20 MG CAPSULE PO SCH (10:27)
[2021-10-04] MEDS: TOPIRAMATE 100 MG PO SCH (14:26)
[2021-10-04] MEDS: BREXPIPRAZOLE 3 MG PO SCH (14:26)
[2021-10-04] MEDS: traZODone 50 MG TABLET PO SCH (22:12)
[2021-10-04] MEDS: Lithium Carbonate 300 MG CAPSULE PO SCH (22:12)
[2021-10-05] MEDS: *HR* HYDROcodone/Acet 5/325 mg TABLET PO PRN (03:35)
[2021-10-05] MEDS: FLUoxetine 20 MG CAPSULE PO SCH (07:19)
[2021-10-05] MEDS: rOPINIRole 0.25 MG TABLET PO SCH (07:19)
[2021-10-05] MEDS: TOPIRAMATE 100 MG PO SCH (07:20)
[2021-10-05] MEDS: BREXPIPRAZOLE 3 MG PO SCH (07:20)
[2021-10-05] MEDS: Ringers Solution, Lactated 1,000 ML IVC SCH (08:54)
[2021-10-05 10:42] VITALS: BP 110/68; PULSE 75; TEMP 98.2; O2SAT 98
== END 2021-10-05 14:18 | disposition home health service (06) ==
LOC: 4WAOSI 06:06 → SDCAOSI 06:06 → 4WAOSI 12:33
PROVIDERS: ADMIT Orthopaedic Surgery Orthopaedic Surgery of the Spine; ATTEND Orthopaedic Surgery Orthopaedic Surgery of the Spine